=== PATIENT | female | born 1975 | race Caucasian/White ===

== ENCOUNTER 2019-08-06 17:01 | Emergency (ER) | payer SELFPAY ==
[2019-08-06 17:43] VITALS: BP 123/77; PULSE 92; RESP 16; TEMP 36.9; O2SAT 98; BMI 20.7
--- NOTE | 2019-08-06 17:53 | W.ED.GENADLT ---
HPI - General Adult General: Chief complaint: General Medical Stated complaint: sinus problems Time Seen by Provider: 08/06/19 17:53 History of Present Illness: HPI narrative: sinus tenderness x 3 days Associated symptoms: Deny chest pain, dyspnea, headache(s), nausea, rash or vomiting Review of Systems Const: Denies: fever, chills or body aches Eyes: Denies: change in vision or blurry vision ENMT: Reports: nasal congestion; Denies: throat pain Card: Denies: chest pain or shortness of breath on exertion Resp: Denies: shortness of breath, productive cough or non-productive cough GI: Denies: abdominal pain, nausea or vomiting Musc: Denies: extremity pain Skin/Breast: Denies: rash Neuro: Denies: headache Psych: Denies: anxiety or depression Maxime/Lymph: Denies: easy bruising PFSH ED PFSH: Statuses (acute, chronic, etc) shown below reflect problem list status as previously entered and may not be historically accurate Social History Smoking and tobacco status: current every day smoker Female Reproductive History: Date of last menstrual period: 07/31/10 Physical Exam Const: COMMON NORMALS: no apparent distress, average body habitus and oriented x3 HENMT: COMMON NORMALS: normocephalic HEAD & SCALP: normal to inspection and normocephalic FACE & SINUS: sinus tenderness; facial exam not normal and sinuses not nontender Eye: COMMON NORMALS: conjunctivae normal GENERAL EYE: normal appearance of both eyes CONJUNCTIVA: Yes conjunctivae normal Neck/C-Spine: COMMON NORMALS: no JVD Chest: COMMONS NORMALS: inspection of chest normal Resp: COMMON NORMALS: normal respiratory effort and clear to auscultation bilaterally AUSCULTATION: clear to auscultation bilaterally Cardio: COMMON NORMALS: no JVD, regular rate and regular rhythm RATE: regular rate RHYTHM: regular rhythm GI: COMMON NORMALS: normal to inspection, nondistended, normoactive bowel sounds Extremity: COMMON NORMALS: normal to inspection and full ROM Neuro: COMMON NORMALS: oriented x3 Course Vital Signs: Vital signs: Vital Signs Temperature 98.5 F 08/06/19 17:43 Pulse Rate 92 08/06/19 17:43 Respiratory Rate 16 08/06/19 17:43 Blood Pressure 123/77 08/06/19 17:43 Pulse Oximetry 98 08/06/19 17:43 Discharge Plan Discharge Patient Disposition: Home, Self-Care Clinical Impression: Sinus complaint Condition: Stable Prescriptions: New sulfamethoxazole-trimethoprim [Bactrim DS] 800-160 mg tablet 1 tab PO BID 21 Days Qty: 42 RF: 0 Referrals: Kin Lopez, JUNIOR LINUX ADMINISTRATOR [Primary Care Provider] - Discharge Diet: Usual diet Discharge Activity: Resume usual activity Patient Instructions: Sinusitis - Acute Activity Restrictions/Additional Instructions: take meds as prescribed, follow up with PCP as needed Coding Level of Care Code ED Organic Chemistry Teacher for Apryl Salas
[2019-08-06 18:05] VITALS: BP 119/70; PULSE 79; RESP 18; O2SAT 97
== END 2019-08-06 18:09 | disposition home or self-care (01) ==
LOC: ER 18:09
PROVIDERS: Emergency Provider Nurse Practitioner Family; Family Provider Nurse Practitioner Family; PCP Nurse Practitioner Family
DX: R09.81 Nasal congestion (principal); F17.210 Nicotine dependence, cigarettes, uncomplicated
CPT/HCPCS: 99281

== ENCOUNTER 2019-12-09 13:55 | Emergency (ER) | payer SELFPAY ==
[2019-12-09 14:07] VITALS: BP 156/98; PULSE 83; RESP 17; TEMP 36.6; O2SAT 99; BMI 20.2
--- NOTE | 2019-12-09 14:18 | XR_ITS ---
WS: [id number] PORTABLE CHEST HISTORY: cough/congestion COMPARISON: 06/05/2019 Lungs are clear and well expanded. No pleural effusion or pneumothorax. Cardiac size: Normal. Mediastinum/Aorta: Normal mediastinum. No osseous abnormality seen. XR/XR chest 1V portable [id number] IMPRESSION: Unremarkable portable chest.
[2019-12-09 15:16] LABS: Basophils # 0.1 10^3/uL (0.0-0.1); Basophils % 1.8 %; Eosinophils # 0.1 10^3/uL (0.0-0.8); Eosinophils % 4.3 %; Hematocrit 42.5 % (37.0-47.0); Hemoglobin 14.4 g/dL (11.5-15.3); Lymphocytes # 1.3 10^3/uL (0.8-4.8); Lymphocytes % 41.1 %; Mean Corpuscular HGB Conc 33.9 g/dL (30.0-36.0); Mean Corpuscular Volume 106.3 fL (81-99); Mean Platelet Volume 10.7 fL (7.4-10.4); Monocytes # 0.2 10^3/uL (0.2-0.9); Monocytes % 6.4 %; Neutrophils # 1.5 10^3/uL (1.8-7.7); Neutrophils % 46.1 %; Nucleated Red Blood Cells % 0 %; Platelet Count 132 10^3/cmm (130-400); Red Cell Distribution Width 12.7 % (12.1-15.1); White Blood Count 3.3 10^3/uL (4.0-10.0)
[2019-12-09 15:29] LABS: Alanine Aminotransferase 61 U/L (0-33); Albumin Level 4.1 g/dL (3.5-5.2); Alkaline Phosphatase 140 IU/L (35-105); Aspartate Amino Transferase 127 U/L (0-32); Blood Urea Nitrogen 5 mg/dL (6-20); Carbon Dioxide 23 mmol/L (22-29); Chloride 102 mmol/L (98-107); Globulin 3.4 g/dL (1.3-4.6); Glomerular Filtration Rate 67.7 mL/min (90-130); Glucose 91 mg/dL (65-115); Osmolality Calculated 285 mOsm/kg (285-295); Sodium 140 mmol/L (136-145); Total Bilirubin 0.9 mg/dL (0.15-1.2); Total Protein 7.5 g/dL (6.6-8.7)
--- NOTE | 2019-12-09 20:25 | ED_ITS ---
HPI - Fever General: Chief Complaint: Fever Stated Complaint: COUGH/DIZZY Time Seen by Provider: 12/09/19 20:23 History of Present Illness: HPI Narrative: Patient is a 44-year-old female who comes to the ED with generalized illness. Patient said that symptoms started about 2 weeks ago. She is complaining of productive cough with clear sputum, ear pain, nasal drainage and congestion, sinus pain/ headache and SOB. Patient says that she has had a lot of nasal congestion and drainage that goes down the back of her throat causing her to cough and gag and vomit. Patient says she is vomited multiple times over the last 2 weeks. She describes her shortness of breath has a chest heaviness. Patient's headache she describes as similar to her previous migraines. She has photophobia. Migraine is a 9 out of 10. Patient is also complaining of some neck muscle pain and tightness. She says she has had subjective fevers and chills. Denies any abdominal pain, constipation, diarrhea, dysuria, hematuria. Associated symptoms: Reports chills, headache(s), nasal congestion, sinus pain and vomiting; Deny abdominal pain, back/flank pain, chest pain, diarrhea, dysuria or nausea Review of Systems Const: Reports: fever and chills; Denies: fatigue Eyes: Denies: change in vision or eye discomfort ENMT: Reports: ear pain, ear discharge, nasal discharge, nasal congestion, post nasal drip and facial/sinus pain; Denies: throat pain or painful swallowing Card: Denies: chest pain, palpitations, edema, swelling of feet/ankles, shortness of breath on exertion or shortness of breath when lying down Resp: Reports: shortness of breath and productive cough; Denies: non-productive cough GI: Reports: vomiting; Denies: abdominal pain, nausea, diarrhea, constipation or blood in stool : Denies: flank pain, painful urination or blood in urine Musc: Reports: neck pain (Left side of neck muscle pain); Denies: back pain or extremity swelling Skin/Breast: Denies: rash or new lesion Neuro: Reports: headache; Denies: numbness in extremities or weakness in extremities PFS ED PFSH: Social History Smoking and tobacco status: current every day smoker Female Reproductive History: Date of last menstrual period: 07/31/10 Physical Exam Narrative: EXAM NARRATIVE: Patient is a 44-year-old female that is sitting on exam bed when I enter the room. Patient appears to be feeling unwell and voice sounds nasally and nose is congested. Const: COMMON NORMALS: oriented x3 HENMT: COMMON NORMALS: normocephalic, external ears normal, external nose normal and moist oral mucous membranes HEAD & SCALP: normocephalic FACE & SINUS: sinus tenderness frontal and maxillary NOSE: external nose normal and nasal discharge clear EXTERNAL EAR: Yes external ears normal EXTERNAL AUDITORY CANAL: EAC abnormal EAC laterality: right Details: other (erythema and redness with some blood. pt states she was picking at her right ear and picked scab out.) TYMPANIC MEMBRANE: TM abnormal TM laterality: right Details: bulging, erythematous and fluid behind TM and left Details: fluid behind TM MOUTH: oral and palatal mucosa normal THROAT: posterior oropharynx normal and uvula midline Eye: COMMON NORMALS: PERRL PUPIL: Yes PERRL Neck/C-Spine: COMMON NORMALS: supple GENERAL: Yes normal visual inspection CERVICAL SPINE: Yes trapezius muscle tenderness left (tender and tight) Resp: COMMON NORMALS: normal respiratory effort, no retractions and no use of accessory muscles EFFORT & INSPECTION: Yes able to speak in complete sentences and No respiratory distress AUSCULTATION: no crackles and wheezes expiratory wheezes, lower bilaterally and posterior Cardio: COMMON NORMALS: regular rate, regular rhythm, S1 normal heart sound, S2 normal heart sound, no gallops, no clicks, no murmurs and peripheral pulses 2+ throughout RATE: regular rate RHYTHM: regular rhythm HEART SOUNDS: S 1 normal and S2 normal PERIPHERAL PULSES: pulses 2+ throughout GI: COMMON NORMALS: normal to inspection, nondistended, normoactive bowel sounds, soft to palpation, non-tender and no masses PALPATION: Yes soft : COMMON NORMALS: Yes no CVA tenderness BLADDER/KIDNEY EXAM: Yes no CVA tenderness Back/Pelvis: COMMON NORMALS: no CVA tenderness Extremity: COMMON NORMALS: normal to inspection and no pedal edema Neuro: COMMON NORMALS: oriented x3 and moves all extremities Skin: COMMON NORMALS: no rashes or lesions noted GENERAL SKIN EXAM: no rashes or lesions noted and dry skin Course Reevaluation(s): Reevaluation #1: I discussed with patient lab findings and and particularly her elevated liver enzymes. Patient denies any right upper quadrant pain or epigastric pain, recent alcohol consumption, Tylenol consumption or any other known liver issues. Denies any IV drug use and denies any known contact with person who has hepatitis. Time: 21:51 Vital Signs: Vital signs: Vital Signs Temperature 97.9 F 12/09/19 14:07 Pulse Rate 83 12/09/19 14:07 Respiratory Rate 17 12/09/19 14:07 Blood Pressure 150/99 12/10/19 03:10 Pulse Oximetry 96 12/10/19 03:10 MDM - Fever MDM Narrative: Medical decision making narrative: Patient is a 44-year-old female who comes to the ED with migraines, neck muscle pain, nasal congestion, postnasal drip, productive cough, sinus pain and right ear pain. She also describes some chest pain. Physical exam showed some erythema, bulging and fluid behind right TM. Patient had moderate tenderness upon palpation of the maxillary and frontal sinuses. EKG showed normal sinus rhythm and troponin was negative, ruling out any cardiac cause. Chest x-ray showed no acute findings. CBC was unremarkable and CMP showed an elevated ALT of 61 and AST of 127. Hep [place] panel was performed and they were all nonreactive. Patient was given dose of antibiotic while here in the ED. She was also given IV fluids, Toradol, sumatriptan, Decadron, Benadryl for migraine. For patient's neck pain she was given a dose of Flexeril. Patient diagnosed with sinus infection, trapezius muscle pain, otitis media of right ear and a migraine. Patient was sent home with a prescription for Augmentin and course of steroids. I also sent patient home with muscle relaxer to help with neck muscle pain. Patient told to follow- up with PCP in the next 7 days for reevaluation. Patient understood and agreed with plan. Lab Data: Attestation: I reviewed the patient's lab results. Labs: Lab Results 12/09/19 12/09/19 12/09/19 Range/Units 15:03 15:03 15:03 WBC 3.3 L (4.0-10.0) 10^3/ uL RBC 4.00 L (4.1-5.3) 10^6/u L Hgb 14.4 (11.5-15.3) g/dL Hct 42.5 (37.0-47.0) % MCV 106.3 H (81-99) fL MCH 36.0 H (28.0-34.0) pg MCHC 33.9 (30.0-36.0) g/dL RDW 12.7 (12.1-15.1) % Plt Count 132 (130-400) 10^3/c mm MPV 10.7 H (7.4-10.4) fL Neut % (Auto) 46.1 % Lymph % (Auto) 41.1 % Mcdonough % (Auto) 6.4 % Eos % (Auto) 4.3 % Baso % (Auto) 1.8 % Neut # (Auto) 1.5 L (1.8-7.7) 10^3/u L Lymph # (Auto) 1.3 (0.8-4.8) 10^3/u L Mcdonough # (Auto) 0.2 (0.2-0.9) 10^3/u L Eos # (Auto) 0.1 (0.0-0.8) 10^3/u L Baso # (Auto) 0.1 (0.0-0.1) 10^3/u L Nucleated RBC % (a uto) 0 % Nucleated RBCs # 0.0 /100WBC Sodium 140 (136-145) mmol/L Potassium 4.0 (3.5-5.1) mmol/L Chloride 102 (98-107) mmol/L Carbon Dioxide 23 (22-29) mmol/L Anion Gap 19.0 (5-19) BUN 5 L (6-20) mg/dL Creatinine 0.9 (0.5-0.9) mg/dL GFR Calculation 67.7 L (90-130) mL/min Glucose 91 (65-115) mg/dL Calculated Osmolal ity 285 (285-295) mOsm/k g Calcium 10.0 (8.5-10.5) mg/dL Total Bilirubin 0.9 (0.15-1.2) mg/dL AST 127 H (0-32) U/L ALT 61 H (0-33) U/L Alkaline Phosphata se 140 H (35-105) IU/L Troponin T Baselin e (0-10) ng/mL Total Protein 7.5 (6.6-8.7) g/dL Albumin 4.1 (3.5-5.2) g/dL Globulin 3.4 (1.3-4.6) g/dL Hepatitis A IgM Ab Non-reactive (Nonreactive) Hep Bs Antigen Non-reactive (Nonreactive) Hep Bs Antibody 3.5 (0-8.5) Hep B Core Total A b Non-reactive (Nonreactive) Hepatitis C Antibo dy Non-reactive (Nonreactive) Influenza Type A A g (Negative) Influenza Type B A g (Negative) 12/09/19 12/09/19 Range/Units 20:48 21:20 WBC (4.0-10.0) 10^3/ uL RBC (4.1-5.3) 10^6/u L Hgb (11.5-15.3) g/dL Hct (37.0-47.0) % MCV (81-99) fL MCH (28.0-34.0) pg MCHC (30.0-36.0) g/dL RDW (12.1-15.1) % Plt Count (130-400) 10^3/c mm MPV (7.4-10.4) fL Neut % (Auto) % Lymph % (Auto) % Mcdonough % (Auto) % Eos % (Auto) % Baso % (Auto) % Neut # (Auto) (1.8-7.7) 10^3/u L Lymph # (Auto) (0.8-4.8) 10^3/u L Mcdonough # (Auto) (0.2-0.9) 10^3/u L Eos # (Auto) (0.0-0.8) 10^3/u L Baso # (Auto) (0.0-0.1) 10^3/u L Nucleated RBC % (a uto) % Nucleated RBCs # /100WBC Sodium (136-145) mmol/L Potassium (3.5-5.1) mmol/L Chloride (98-107) mmol/L Carbon Dioxide (22-29) mmol/L Anion Gap (5-19) BUN (6-20) mg/dL Creatinine (0.5-0.9) mg/dL GFR Calculation (90-130) mL/min Glucose (65-115) mg/dL Calculated Osmolal ity (285-295) mOsm/k g Calcium (8.5-10.5) mg/dL Total Bilirubin (0.15-1.2) mg/dL AST (0-32) U/L ALT (0-33) U/L Alkaline Phosphata se (35-105) IU/L Troponin T Baselin e 7 (0-10) ng/mL Total Protein (6.6-8.7) g/dL Albumin (3.5-5.2) g/dL Globulin (1.3-4.6) g/dL Hepatitis A IgM Ab (Nonreactive) Hep Bs Antigen (Nonreactive) Hep Bs Antibody (0-8.5) Hep B Core Total A b (Nonreactive) Hepatitis C Antibo dy (Nonreactive) Influenza Type A A g Negative (Negative) Influenza Type B A g Negative (Negative) Imaging Data^: CXR: Attestation: I personally reviewed and interpreted this imaging study as foll ows: Radiologist's impression: [address] [address] XRay Report Signed Patient: Denisa Orourke Unit #: [id number] : 1975 Age/Sex: 44 / F ADM Date: 12/09/19 Loc: ER Room/Bed: Attending Dr: Ordering Provider/Ordering MD: Missy Shah Date of Service: 12/09/19 Procedure(s): XR chest 1V portable [id number] Accession Number(s): [id number] Report Number: [id number] WS: [id number] PORTABLE CHEST HISTORY: cough/congestion COMPARISON: 06/05/2019 Lungs are clear and well expanded. No pleural effusion or pneumothorax. Cardiac size: Normal. Mediastinum/Aorta: Normal mediastinum. No osseous abnormality seen. XR/XR chest 1V portable [id number] IMPRESSION: Unremarkable portable chest. Dictated By: Kristin Molina DO Signed By: Kristin Molina DO Signed Date/Time: 12/09/191458 DD/ 58 EKG Data^: EKG 1: Attestation: I personally reviewed and interpreted this EKG as follows: EKG interpretation date: 12/09/19 Interpretation: Sinus rhythm, 60 bpm, P waves present, no ST segment elevation or depression seen. Prolonged QT interval Discharge Plan Discharge Patient Disposition: Home, Self-Care Clinical Impression: Sinus pain Acute infection of nasal sinus Qualifiers: Sinusitis location: maxillary Recurrence: non-recurrent Qualified Code(s): J01.00 - Acute maxillary sinusitis, unspecified Migraine Qualifiers: Migraine type: without aura Status migrainosus presence: without status migrainosus Intractability: not intractable Qualified Code(s): G43.009 - Migraine without aura, not intractable, without status migrainosus Acute otitis media Qualifiers: Otitis media type: serous Laterality: right Recurrence: non-recurrent Qualified Code(s): H65.01 - Acute serous otitis media, right ear Strain of left trapezius muscle Qualifiers: Encounter type: initial encounter Qualified Code(s): S46.812A - Strain of other muscles, fascia and tendons at shoulder and upper arm level, left arm, initial encounter Condition: Stable Prescriptions: New Augmentin 875-125 mg tablet 1 tab PO BID 7 Days Qty: 14 RF: 0 prednisone 50 mg tablet 50 mg PO DAILY 4 Days Qty: 4 RF: 0 cyclobenzaprine 5 mg tablet 5 mg PO Q8H Qty: 20 RF: 0 Discharge Orders: Discharge Order (Routine); Ordered 12/10/19 Ordered By: Yoshi Pope Referrals: ASH Lopez, BRAKE PRESS OPERATOR [Primary Care Provider] - Discharge Diet: Regular Discharge Activity: Increase activity as tolerated Patient Instructions: Migraine Headache (ED), Sinusitis - Acute Activity Restrictions/Additional Instructions: Follow-up with your PCP in the next 7 to 10 days for reevaluation. Take full course of antibiotics and steroids as prescribed. Take [id number] Tylenol or ibuprofen for pain or fevers. Drink plenty of fluids and stay hydrated. Take muscle relaxer at night to help with neck pain. Muscle relaxer can cause drowsiness so use with caution during the day. Discharge Date/Time: 12/10/19 03:34 Coding Level of Care Code ED Boat Tester for Chg Fwd 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
[2019-12-09 21:15] LABS: Troponin(5th) Baseline 7 ng/mL (0-10)
[2019-12-09] MEDS: sodium chloride 0.9% 1,000 ML 999 ML IV ×2 (22:10→23:44)
[2019-12-09] MEDS: ketorolac 30 mg/mL INJ IVP (22:11)
[2019-12-09] MEDS: ondansetron 2 mg/ML SDV 2 mL 4 MG IVP (22:29)
[2019-12-09] MEDS: amoxicillin 500 mg Capsule PO (22:29)
--- NOTE | 2019-12-09 22:41 | ECG_ITS ---
Measurements Intervals [place] Rate: 60 P: 58 OH: 169 QRS: 21 QRSD: 94 T: 72 QT: 494 QTc: 497 SINUS RHYTHM POSSIBLE RIGHT VENTRICULAR CONDUCTION DELAY [RSR (QR) IN V1/V2] PROLONGED QT INTERVAL Compared to ECG 10/16/2017 18:06:14 Prolonged QT interval now present Electronically Signed On 12-10-2019 19:47:10 CDT by Masha Pablo M.D. [email or web address]
--- NOTE | 2019-12-09 22:53 | PC.NURSE ---
pt. refused [id number] blood draw, Dr dykes
[2019-12-09 23:06] LABS: Influenza A by IFA Negative (Negative); Influenza B by IFA Negative (Negative)
[2019-12-09] MEDS: morphine 4 mg/mL SDV 1 mL IVP (23:45)
[2019-12-09] MEDS: dexamethasone 10 mg/mL INJ IVP (23:45)
[2019-12-09 23:52] VITALS: BP 150/102; O2SAT 97
[2019-12-09 23:55] VITALS: BP 150/102; O2SAT 95
[2019-12-10] VITALS (39 sets, daily range): BP systolic 139–174; BP diastolic 99–109; O2SAT 92–100
[2019-12-10] MEDS: diphenhydrAMINE 50 mg/mL SDV 1mL 25 MG IVP (00:35)
[2019-12-10] MEDS: SUMAtriptan 6 mg/0.5 mL SDV SUBCUT (00:36)
[2019-12-10] MEDS: cyclobenzaprine 10 mg Tablet 5 MG PO (02:16)
[2019-12-10 03:07] LABS: Hepatitis A Antibody IgM Non-Reactive (Nonreactive); Hepatitis B Core AB, Total Non-Reactive (Nonreactive); Hepatitis B Surface AB 3.5 (0-8.5); Hepatitis B Surface Antigen Non-Reactive (Nonreactive); Hepatitis C Virus Antibody Non-Reactive (Nonreactive)
== END 2019-12-10 03:34 | disposition home or self-care (01) ==
PROVIDERS: Physician Assistant; Emergency Provider Physician Assistant; PCP Nurse Practitioner Family
DX: J01.00 Acute maxillary sinusitis, unspecified (principal); G43.009 Migraine without aura, not intractable, without status migrainosus; H65.01 Acute serous otitis media, right ear; S46.812A Strain of other muscles, fascia and tendons at shoulder and upper arm level, left arm, initial encounter; X58.XXXA Exposure to other specified factors, initial encounter; F17.210 Nicotine dependence, cigarettes, uncomplicated
CPT/HCPCS: 12345; 71045; 80053; 84484; 85025; 86705; 86706; 86709; 86803; 87340; 87804; 93005; 96361; 96372; 96374; 96375; 99284; J1100; J1200; J1885; J2270; J2405; J3030; J7030

== ENCOUNTER 2019-12-14 12:26 | Emergency (ER) | payer SELFPAY ==
[2019-12-14 12:43] VITALS: BP 134/94; PULSE 95; RESP 18; O2SAT 100; BMI 20.5
--- NOTE | 2019-12-14 12:44 | XRR_ITS ---
PROCEDURE INFORMATION: Exam: XR Chest, 1 View Exam date and time: 12/14/2019 12:45 PM Age: 44 years old Clinical indication: Chest pain; Additional info: Dyspnea/cough TECHNIQUE: Imaging protocol: XR of the chest Views: 1 view. COMPARISON: CR XR chest 1V portable [id number] 12/09/2019 2:33 PM FINDINGS: Lungs: Unremarkable. No consolidation. Pleural space: Unremarkable. No pleural effusion. No pneumothorax. Heart/Mediastinum: Unremarkable. No cardiomegaly. Bones/joints: Unremarkable. XR/XR chest 1V portable [id number] IMPRESSION: No acute findings.
--- NOTE | 2019-12-14 12:45 | ED_ITS ---
HPI - General Adult General: Chief complaint: Chest Pain Stated complaint: cp Time Seen by Provider: 12/14/19 12:36 History of Present Illness: HPI narrative: 44-year-old female comes in complaining of chest pain left arm numbness that started last night around 11 PM. She was resting at the time she not needs anything that makes it better or worse. She did use a family members nitro spray which did not really seem to make any difference she reports. She does have some associated shortness of breath with it she is quite anxious and tearful when seen in the emergency room today. She denies fever cough denies any vomiting or diarrhea. She is moderately nauseous. Earlier this week she was seen for a sinus infection since started on Augmentin and prednisone. She is still taking those. She has a history of PSVT but is been a number of years since she has had any episodes. Onset (ago): hour(s) (12-14) Location: chest Radiation: non-radiation Severity: moderate Quality: sharp and constant Pain Consistency: constant Relieving factors: none Exacerbating factors: none Associated symptoms: Reports dyspnea and short of breath; Deny confusion, cough, diaphoresis, decreased appetite, fevers/chills, headache(s), nausea, rash, palpitations, seizures, syncope, vomiting or weakness Treatments prior to arrival: other (Nitroglycerin no relief) Review of Systems Const: Denies: diaphoresis ENMT: Denies: throat pain, ear or mastoid pain, nasal discharge or nasal congestion Card: Denies: palpitations or syncope Resp: Reports: dyspnea GI: Denies: nausea or vomiting : Denies: flank pain, difficulty voiding, dysuria, urinary frequency or urinary urgency Skin/Breast: Denies: rash or pruritus Neuro: Denies: headache(s) or confusion PFS ED PFSH: Medical History (Updated 12/18/19 @ 00:00 by ) PSVT (paroxysmal supraventricular tachycardia) Surgical History (Updated 12/14/19 @ 12:50 by Fer Reynoso DO) History of hysterectomy with bilateral oophorectomy Hx of appendectomy Social History (Updated 12/14/19 @ 12:51 by Fer Reynoso DO) Smoking and tobacco status: current every day smoker Alcohol intake: current Female Reproductive History: Date of last menstrual period: 07/31/10 Physical Exam Narrative: EXAM NARRATIVE: 44-year-old female tearful smells strongly of alcohol Const: COMMON NORMALS: no acute distress GENERAL APPEARANCE: cooperative and comfortable ORIENTATION/CONSCIOUSNESS: Yes awake, Yes oriented to person, Yes oriented to place and Yes oriented to time HENMT: COMMON NORMALS: normocephalic, atraumatic, hearing grossly normal bilaterally, external ears normal, EAC's normal, TM's normal bilaterally, Normal nasal mucous membranes and turbinates present, moist oral mucous membranes and oropharynx normal HEAD & SCALP: normocephalic and atraumatic NOSE: Normal nasal mucous membranes and turbinates present EXTERNAL EAR: Yes external ears normal EXTERNAL AUDITORY CANAL: EAC's normal TYMPANIC MEMBRANE: TM's normal bilaterally Eye: COMMON NORMALS: Equal, round and reactive pupils present, EOMs intact bilaterally, conjunctivae normal and no scleral icterus CONJUNCTIVA: Yes conjunctivae normal PUPIL: Yes Equal, round and reactive pupils present Neck/C-Spine: COMMON NORMALS: full ROM, no lymphadenopathy, supple and no JVD Lymph: LYMPHATIC: no lymphadenopathy noted and no lymphedema noted Resp: COMMON NORMALS: normal respiratory effort, No retractions, No use of accessory muscles and clear to auscultation bilaterally AUSCULTATION: clear to auscultation bilaterally Cardio: COMMON NORMALS: no JVD, regular rate, regular rhythm and No murmurs pr esent (Cardio) RATE: regular rate RHYTHM: regular rhythm GI: COMMON NORMALS: Soft to palpation and No hepatosplenomegaly present AUSCULTATION: Yes normoactive bowel sounds PALPATION: Yes Soft to palpation, No Tenderness to palpation present (GI), No Guarding due to palpation present (GI) and Yes No hepatosplenomegaly present Extremity: COMMON NORMALS: normal to inspection, capillary refill normal, no clubbing, cyanosis or edema, no calf tenderness and no pedal edema Neuro: SENSORIUM/ORIENTATION: Yes oriented to person, Yes oriented to place and Yes oriented to time Skin: COMMON NORMALS: no rashes or lesions noted GENERAL SKIN EXAM: no rashes or lesions noted Course Vital Signs: Vital signs: Vital Signs Pulse Rate 95 12/14/19 12:43 Respiratory Rate 18 12/14/19 12:43 Blood Pressure 134/94 12/14/19 12:43 Pulse Oximetry 100 12/14/19 12:43 MDM - General Adult MDM Narrative: Medical decision making narrative: Patient acutely intoxicated troponins unremarkable with no delta. We will go ahead and discharge her home start on a PPI strongly encouraged to stop drinking. Lab Data: Attestation: I reviewed the patient's lab results. Labs: Lab Results 12/14/19 12/14/19 12/14/19 Range/Units 13:09 13:09 13:11 WBC (4.0-10.0) 10^3/ uL RBC (4.1-5.3) 10^6/u L Hgb (11.5-15.3) g/dL Hct (37.0-47.0) % MCV (81-99) fL MCH (28.0-34.0) pg MCHC (30.0-36.0) g/dL RDW (12.1-15.1) % Plt Count (130-400) 10^3/c mm MPV (7.4-10.4) fL Neut % (Auto) % Lymph % (Auto) % [place] % (Auto) % Eos % (Auto) % Baso % (Auto) % Neut # (Auto) (1.8-7.7) 10^3/u L Lymph # (Auto) (0.8-4.8) 10^3/u L [place] # (Auto) (0.2-0.9) 10^3/u L Eos # (Auto) (0.0-0.8) 10^3/u L Baso # (Auto) (0.0-0.1) 10^3/u L Nucleated RBC % (a uto) % Nucleated RBCs # /100WBC Specimen Type Arterial Sample Site Brachial, left ABG pH 7.44 (7.35-7.45) ABG pCO2 34.9 L (35-45) mmHg ABG pO2 94.0 (80.0-100.0) mmH g ABG HCO3 23.7 (22-26) mmol/L ABG O2 Saturation 98.0 ABG Base Excess 0.0 (-2.0-2.0) mmol/ L Donny Test Pos A-a O2 Gradient 10.5 H (5-10) mmHg Hematocrit 42.8 (37-47) % Hgb O2 Saturation 92.5 L (95-100) % Carboxyhemoglobin 4.8 (0.4-20.1) %THgb Methemoglobin 0.8 (0.4-1.5) % Total Hemoglobin 14.0 (12-16) g/dL Sodium 144.0 H (131-143) mmol/L Potassium 3.0 L (3.5-5.0) mmol/L Glucose 91.0 (70-115) mg/dL Ionized Calcium 1.2 (1.1-1.4) mmol/L O2 Delivery Device Room air Broommaker ID [id number] Chloride (98-107) mmol/L Carbon Dioxide (22-29) mmol/L Anion Gap (5-19) BUN (6-20) mg/dL Creatinine (0.5-0.9) mg/dL GFR Calculation (90-130) mL/min Calculated Osmolal ity (285-295) mOsm/k g Calcium (8.5-10.5) mg/dL Total Bilirubin (0.15-1.2) mg/dL AST (0-32) U/L ALT (0-33) U/L Alkaline Phosphata se (35-105) IU/L Troponin T Baselin e (0-10) ng/mL Troponin T 120 Min [place] (0-10) ng/mL Delta Troponin T (0-10) ABS# Total Protein (6.6-8.7) g/dL Albumin (3.5-5.2) g/dL Globulin (1.3-4.6) g/dL Urine Color Yellow (Yellow) Urine Appearance Clear (CLEAR) Urine pH 6.5 (5-7) Ur Specific Gravit y 1.005 (1.005-1.030) Urine Protein Neg (Negative) Urine Glucose (UA) Norm (Normal) Urine Ketones Negative (Negative) Urine Blood Neg (Negative) Urine Nitrate Negative (Negative) Urine Bilirubin Neg (NEGATIVE) Urine Urobilinogen Norm (Negative) mg/dL Ur Leukocyte Rachel ase Negative (Negative) Urine Opiates Scre en Negative (Negative) ng/mL Ur Barbiturates Sc reen Negative (Negative) ng/mL Ur Phencyclidine S crn Negative (Negative) ng/mL Ur Amphetamines Sc reen Negative (Negative) ng/mL U Benzodiazepines Scrn Positive H (Negative) ng/mL Urine Cocaine Scre en Negative (Negative) ng/mL U Marijuana (THC) Screen Negative (Negative) ng/mL Ethyl Alcohol (0-10) mg/dL 12/14/19 12/14/19 12/14/19 Range/Units 13:22 13:22 13:22 WBC 9.3 (4.0-10.0) 10^3/ uL RBC 3.74 L (4.1-5.3) 10^6/u L Hgb 14.0 (11.5-15.3) g/dL Hct 40.5 (37.0-47.0) % MCV 108.3 H (81-99) fL MCH 37.4 H (28.0-34.0) pg MCHC 34.6 (30.0-36.0) g/dL RDW 12.9 (12.1-15.1) % Plt Count 156 (130-400) 10^3/c mm MPV 11.0 H (7.4-10.4) fL Neut % (Auto) 44.5 % Lymph % (Auto) 47.0 % [place] % (Auto) 7.7 % Eos % (Auto) 0.4 % Baso % (Auto) 0.1 % Neut # (Auto) 4.1 (1.8-7.7) 10^3/u L Lymph # (Auto) 4.4 (0.8-4.8) 10^3/u L [place] # (Auto) 0.7 (0.2-0.9) 10^3/u L Eos # (Auto) 0.0 (0.0-0.8) 10^3/u L Baso # (Auto) 0.0 (0.0-0.1) 10^3/u L Nucleated RBC % (a uto) 0 % Nucleated RBCs # 0.0 /100WBC Specimen Type Sample Site ABG pH (7.35-7.45) ABG pCO2 (35-45) mmHg ABG pO2 (80.0-100.0) mmH g ABG HCO3 (22-26) mmol/L ABG O2 Saturation ABG Base Excess (-2.0-2.0) mmol/ L Donny Test A-a O2 Gradient (5-10) mmHg Hematocrit (37-47) % Hgb O2 Saturation (95-100) % Carboxyhemoglobin (0.4-20.1) %THgb Methemoglobin (0.4-1.5) % Total Hemoglobin (12-16) g/dL Sodium 141 (131-143) mmol/L Potassium 3.0 L (3.5-5.0) mmol/L Glucose 86 (70-115) mg/dL Ionized Calcium (1.1-1.4) mmol/L O2 Delivery Device Broommaker ID Chloride 102 (98-107) mmol/L Carbon Dioxide 24 (22-29) mmol/L Anion Gap 18.0 (5-19) BUN 8 (6-20) mg/dL Creatinine 0.9 (0.5-0.9) mg/dL GFR Calculation 67.7 L (90-130) mL/min Calculated Osmolal ity 287 (285-295) mOsm/k g Calcium 8.6 (8.5-10.5) mg/dL Total Bilirubin 0.3 (0.15-1.2) mg/dL AST 92 H (0-32) U/L ALT 53 H (0-33) U/L Alkaline Phosphata se 107 H (35-105) IU/L Troponin T Baselin e 6 (0-10) ng/mL Troponin T 120 Min [place] (0-10) ng/mL Delta Troponin T (0-10) ABS# Total Protein 6.7 (6.6-8.7) g/dL Albumin 4.2 (3.5-5.2) g/dL Globulin 2.5 (1.3-4.6) g/dL Urine Color (Yellow) Urine Appearance (CLEAR) Urine pH (5-7) Ur Specific Gravit y (1.005-1.030) Urine Protein (Negative) Urine Glucose (UA) (Normal) Urine Ketones (Negative) Urine Blood (Negative) Urine Nitrate (Negative) Urine Bilirubin (NEGATIVE) Urine Urobilinogen (Negative) mg/dL Ur Leukocyte Rachel ase (Negative) Urine Opiates Scre en (Negative) ng/mL Ur Barbiturates Sc reen (Negative) ng/mL Ur Phencyclidine S crn (Negative) ng/mL Ur Amphetamines Sc reen (Negative) ng/mL U Benzodiazepines Scrn (Negative) ng/mL Urine Cocaine Scre en (Negative) ng/mL U Marijuana (THC) Screen (Negative) ng/mL Ethyl Alcohol 255 H (0-10) mg/dL 16/20 Range/Units 15:25 WBC (4.0-10.0) 10^3/ uL RBC (4.1-5.3) 10^6/u L Hgb (11.5-15.3) g/dL Hct (37.0-47.0) % MCV (81-99) fL MCH (28.0-34.0) pg MCHC (30.0-36.0) g/dL RDW (12.1-15.1) % Plt Count (130-400) 10^3/c mm MPV (7.4-10.4) fL Neut % (Auto) % Lymph % (Auto) % [place] % (Auto) % Eos % (Auto) % Baso % (Auto) % Neut # (Auto) (1.8-7.7) 10^3/u L Lymph # (Auto) (0.8-4.8) 10^3/u L [place] # (Auto) (0.2-0.9) 10^3/u L Eos # (Auto) (0.0-0.8) 10^3/u L Baso # (Auto) (0.0-0.1) 10^3/u L Nucleated RBC % (a uto) % Nucleated RBCs # /100WBC Specimen Type Sample Site ABG pH (7.35-7.45) ABG pCO2 (35-45) mmHg ABG pO2 (80.0-100.0) mmH g ABG HCO3 (22-26) mmol/L ABG O2 Saturation ABG Base Excess (-2.0-2.0) mmol/ L Donny Test A-a O2 Gradient (5-10) mmHg Hematocrit (37-47) % Hgb O2 Saturation (95-100) % Carboxyhemoglobin (0.4-20.1) %THgb Methemoglobin (0.4-1.5) % Total Hemoglobin (12-16) g/dL Sodium (131-143) mmol/L Potassium (3.5-5.0) mmol/L Glucose (70-115) mg/dL Ionized Calcium (1.1-1.4) mmol/L O2 Delivery Device Broommaker ID Chloride (98-107) mmol/L Carbon Dioxide (22-29) mmol/L Anion Gap (5-19) BUN (6-20) mg/dL Creatinine (0.5-0.9) mg/dL GFR Calculation (90-130) mL/min Calculated Osmolal ity (285-295) mOsm/k g Calcium (8.5-10.5) mg/dL Total Bilirubin (0.15-1.2) mg/dL AST (0-32) U/L ALT (0-33) U/L Alkaline Phosphata se (35-105) IU/L Troponin T Baselin e (0-10) ng/mL Troponin T 120 Min [place] 6.00 (0-10) ng/mL Delta Troponin T 0 (0-10) ABS# Total Protein (6.6-8.7) g/dL Albumin (3.5-5.2) g/dL Globulin (1.3-4.6) g/dL Urine Color (Yellow) Urine Appearance (CLEAR) Urine pH (5-7) Ur Specific Gravit y (1.005-1.030) Urine Protein (Negative) Urine Glucose (UA) (Normal) Urine Ketones (Negative) Urine Blood (Negative) Urine Nitrate (Negative) Urine Bilirubin (NEGATIVE) Urine Urobilinogen (Negative) mg/dL Ur Leukocyte Rachel ase (Negative) Urine Opiates Scre en (Negative) ng/mL Ur Barbiturates Sc reen (Negative) ng/mL Ur Phencyclidine S crn (Negative) ng/mL Ur Amphetamines Sc reen (Negative) ng/mL U Benzodiazepines Scrn (Negative) ng/mL Urine Cocaine Scre en (Negative) ng/mL U Marijuana (THC) Screen (Negative) ng/mL Ethyl Alcohol (0-10) mg/dL Discharge Plan Discharge Patient Disposition: Home, Self-Care Clinical Impression: Acute alcoholic gastritis Condition: Stable Prescriptions: Changed Protonix 20 mg Tablet,Delayed Release (Dr/Ec) 40 mg PO DAILY Qty: 0 RF: 0 No Action cyclobenzaprine 5 mg tablet 5 mg PO Q8H Qty: 20 RF: 0 prednisone 50 mg Tablet 50 mg PO DAILY RF: 0 Discharge Orders: Discharge Order (Routine); Ordered 12/14/19 Ordered By: Fer Reynoso Referrals: ASH Lopez, MARKETING ACCOUNT MANAGER [Primary Care Provider] - Discharge Diet: Clear Liquid Discharge Activity: Increase activity as tolerated Patient Instructions: Alcoholism, Gastritis (ED), Alcohol Intoxication (ED), Abuse of Alcohol (ED) Activity Restrictions/Additional Instructions: Avoid any alcohol use Discharge Date/Time: 12/14/19 16:28 Coding Level of Care Code ED Storage Brine Worker for Apryl Fwd 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
--- NOTE | 2019-12-14 12:51 | ECG_ITS ---
Measurements Intervals [place] Rate: 90 P: 63 DE: 151 QRS: 34 QRSD: 113 T: 70 QT: 362 QTc: 444 SINUS RHYTHM INCOMPLETE RIGHT BUNDLE BRANCH BLOCK MINIMAL ST DEPRESSION [0.025+ mV ST DEPRESSION] Compared to ECG 12/09/2019 22:45:29 Incomplete right bundle-branch block now present ST (T wave) deviation now present Prolonged QT interval no longer present Electronically Signed On 12-14-2019 16:18:32 CDT by Trisha Obrien M.D. [email or web address]
[2019-12-14 13:25] LABS: ABG PCO2 34.9 mmHg (35-45); ABG PH Result 7.44 (7.35-7.45); Alveolar-Arterial Oxygen Gradi 10.5 mmHg (5-10); Arterial Blood Gas Hematocrit 42.8 % (37-47); Blood Gas Allen Test Pos; Blood Gas Sample Site Brachial, left; Blood Gas Sample Type Arterial; Carboxyhemoglobin 4.8 %THgb (0.4-20.1); HCO3 ABG 23.7 mmol/L (22-26); HGB O2 Sat 92.5 % (95-100); Ionized Calcium Level - ABG 1.2 mmol/L (1.1-1.4); Methemoglobin 0.8 % (0.4-1.5); Oxygen Device ROOM AIR
[2019-12-14 13:46] LABS: Basophils % 0.1 %; Eosinophils % 0.4 %; Hematocrit 40.5 % (37.0-47.0); Lymphocytes # 4.4 10^3/uL (0.8-4.8); Mean Corpuscular HGB Conc 34.6 g/dL (30.0-36.0); Mean Corpuscular Hemoglobin 37.4 pg (28.0-34.0); Mean Corpuscular Volume 108.3 fL (81-99); Monocytes # 0.7 10^3/uL (0.2-0.9); Monocytes % 7.7 %; Neutrophils # 4.1 10^3/uL (1.8-7.7); Neutrophils % 44.5 %; Nucleated Red Blood Cells % 0 %; Platelet Count 156 10^3/cmm (130-400); Red Blood Count 3.74 10^6/uL (4.1-5.3); Red Cell Distribution Width 12.9 % (12.1-15.1); White Blood Count 9.3 10^3/uL (4.0-10.0)
[2019-12-14 13:51] LABS: Add Urine Microscopic? NO
[2019-12-14 13:57] LABS: Urine Appearance Clear (CLEAR); Urine Color Yellow (Yellow)
[2019-12-14 13:58] LABS: Bilirubin Urine Neg (NEGATIVE); Blood Urine Neg (Negative); Glucose Urine UA Norm (Normal); Ketones Urine Negative (Negative); Leukocyte Esterase Urine Negative (Negative); Nitrate Urine Negative (Negative); Protein Urine Neg (Negative); Specific Gravity, Urine 1.005 (1.005-1.030); Urobilinogen Urine Norm (Negative); pH Urine 6.5 (5-7)
[2019-12-14 14:06] LABS: Amphetamines Screen Urine Negative (Negative); Barbiturates Screen Urine Negative (Negative); Benzodiazepines Screen Urine Positive (Negative); Cocaine Screen Urine Negative (Negative); Opiate Screen Urine Negative (Negative); PCP Screen Urine Negative (Negative); THC Screen Urine Negative (Negative)
[2019-12-14 14:07] LABS: Alanine Aminotransferase 53 U/L (0-33); Albumin Level 4.2 g/dL (3.5-5.2); Alcohol Level 255 mg/dL (0-10); Alkaline Phosphatase 107 IU/L (35-105); Aspartate Amino Transferase 92 U/L (0-32); Blood Urea Nitrogen 8 mg/dL (6-20); Calcium 8.6 mg/dL (8.5-10.5); Carbon Dioxide 24 mmol/L (22-29); Chloride 102 mmol/L (98-107); Globulin 2.5 g/dL (1.3-4.6); Glomerular Filtration Rate 67.7 mL/min (90-130); Glucose 86 mg/dL (65-115); Osmolality Calculated 287 mOsm/kg (285-295); Sodium 141 mmol/L (136-145); Total Bilirubin 0.3 mg/dL (0.15-1.2); Total Protein 6.7 g/dL (6.6-8.7)
[2019-12-14 14:11] LABS: Troponin(5th) Baseline 6 ng/mL (0-10)
[2019-12-14] MEDS: lidocaine 2% viscous 15 ML, aluminum-mag hydrox-simethicon 30 ML, sucralfate oral liq 1 GM PO (14:25)
[2019-12-14] MEDS: ketorolac 30 mg/mL INJ IVP (14:28)
[2019-12-14 15:49] LABS: Troponin 5 2HR Delta 0 ABS# (0-10)
== END 2019-12-14 16:28 | disposition home or self-care (01) ==
PROVIDERS: Emergency Provider Family Medicine; PCP Nurse Practitioner Family
DX: K29.20 Alcoholic gastritis without bleeding (principal); F17.210 Nicotine dependence, cigarettes, uncomplicated
CPT/HCPCS: 12345; 36415; 36600; 71045; 80051; 80053; 80306; 80307; 81003; 82810; 83986; 84484; 85025; 93005; 96374; 96375; 99282; 99283; J1885

== ENCOUNTER 2020-01-01 06:40 | Emergency (ER) | payer SELFPAY ==
[2020-01-01 06:44] VITALS: BP 149/100; PULSE 97; RESP 16; TEMP 36.9; O2SAT 98; BMI 20.5
--- NOTE | 2020-01-01 06:50 | ED_ITS ---
HPI - Neck Pain/Injury General: Chief Complaint: Neck Pain/Injury Stated Complaint: NECK PAIN Time Seen by Provider: 01/01/20 06:50 History of Present Illness: HPI Narrative: 44-year-old female comes in complaining of neck pain. She hyperextended her neck while taking some pills last night when she tipped her head back felt a popping sensation and since then has had neck stiffness and pain she holds her neck in a firm position with clinically what appears to be pretty much complete loss of her lordotic curve. She has previously had neck issues and reports having an MRI around April 2015 which showed a bulging disc. Since his episode last night she is not had any radicular pain into her arm which is been localized neck stiffness a little bit more on the right than the left. There is no numbness or tingling into her arms or fingertips and no weakness no other trauma no loss of consciousness. MD complaint: neck pain Onset (ago): day(s) Place: home Radiation: right lateral Severity: moderate and similar to prior neck pain Quality: aching and spasming Duration: constant Relieving factors: remaining still Exacerbating factors: movement of neck Associated symptoms: Reports no associated symptoms; Denies nausea Treatments prior to arrival: other (Muscle relaxer) Review of Systems Const: Denies: fever(s), chills, body aches, change in appetite, fatigue or malaise ENMT: Denies: throat pain, ear or mastoid pain, nasal discharge or nasal congestion Card: Denies: chest pain, edema, dyspnea on exertion or orthopnea Resp: Denies: dyspnea, productive cough or non-productive cough GI: Denies: abdominal pain, nausea, vomiting, hematemesis, coffee ground emesis, diarrhea, constipation, bloating, hematochezia or melena : Denies: flank pain, difficulty voiding, dysuria, urinary frequency or urinary urgency Musc: Reports: neck pain Skin/Breast: Denies: rash or pruritus PFSH ED PFSH: Medical History PSVT (paroxysmal supraventricular tachycardia) Surgical History History of hysterectomy with bilateral oophorectomy Hx of appendectomy Social History (Reviewed 01/01/20 @ 07:10 by MARSHA Mari Smoking and tobacco status: current every day smoker Alcohol intake: current Female Reproductive History: Date of last menstrual period: 07/31/10 Physical Exam Const: COMMON NORMALS: no acute distress GENERAL APPEARANCE: cooperative and comfortable ORIENTATION/CONSCIOUSNESS: Yes awake, Yes oriented to person, Yes oriented to place and Yes oriented to time Neck/C-Spine: GENERAL: Yes tender CERVICAL SPINE: Yes pain with cervical ROM, Yes loss of normal cervical lordosis and Yes Paracervical muscle tenderness Lymph: LYMPHATIC: no lymphadenopathy noted and no lymphedema noted Resp: COMMON NORMALS: normal respiratory effort, No retractions, No use of accessory muscles and clear to auscultation bilaterally AUSCULTATION: clear to auscultation bilaterally Cardio: COMMON NORMALS: regular rate, regular rhythm and No murmurs present (Cardio) RATE: regular rate RHYTHM: regular rhythm GI: COMMON NORMALS: Soft to palpation and No hepatosplenomegaly present AUSCULTATION: Yes normoactive bowel sounds PALPATION: Yes Soft to palpation, No Tenderness to palpation present (GI), No Guarding due to palpation present (GI) and Yes No hepatosplenomegaly present Extremity: COMMON NORMALS: normal to inspection, capillary refill normal, no clubbing, cyanosis or edema, no calf tenderness and no pedal edema Neuro: SENSORIUM/ORIENTATION: Yes oriented to person, Yes oriented to place and Yes oriented to time DEEP TENDON REFLEXES: Right triceps reflex intensity grade: 1+, Left triceps reflex intensity grade: 1+, Rt Biceps (C5, C6): 1+, Left biceps reflex intensity grade: 1+, Right brachioradialis reflex intensity grade: 1+ and Left brachioradialis reflex intensity grade: 1+ OTHER: Sensation and strength the upper extremities normal Skin: COMMON NORMALS: no rashes or lesions noted GENERAL SKIN EXAM: no rashes or lesions noted Course Vital Signs: Vital signs: Vital Signs Temperature 98.5 F 01/01/20 06:44 Pulse Rate 84 01/01/20 09:15 Respiratory Rate 16 01/01/20 06:44 Blood Pressure 165/117 01/01/20 09:15 Pulse Oximetry 100 01/01/20 09:15 Discharge Plan Discharge Patient Disposition: Home, Self-Care Clinical Impression: Strain of neck muscle, Disc disorder of cervical region Condition: Stable Prescriptions: New diclofenac sodium 75 mg tablet,delayed release (DR/EC) 75 mg PO Q12H PRN (Reason: pain) Qty: 20 RF: 0 Skelaxin 800 mg tablet 800 mg PO TID PRN (Reason: muscle pain) Qty: 30 RF: 0 Discontinued cyclobenzaprine 5 mg tablet 5 mg PO Q8H Qty: 20 RF: 0 Referrals: Jessica,ASH, CONSTRUCTION PROJECT ASSISTANT [Primary Care Provider] - Discharge Diet: Usual diet Discharge Activity: Limit activity as instructed Activity Restrictions/Additional Instructions: Follow-up with your primary care doctor for possible referral to pain clinic or PT. If symptoms worsen or change return to you may need an MRI in the future. Discharge Date/Time: 01/01/20 09:15 Coding Level of Care Code ED Rubber Production Machine Operator for Apryl Fwd 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
[2020-01-01] MEDS: morphine 4 mg/mL SDV 1 mL 2 MG IM (07:15)
[2020-01-01] MEDS: ketorolac 60 mg/2 mL INJ IM (07:15)
[2020-01-01] MEDS: orphenadrine 30 mg/mL Inj 2 mL 60 MG IM (07:16)
[2020-01-01] MEDS: morphine 4 mg/mL SDV 1 mL 2 MG IVP (08:31)
[2020-01-01 08:35] VITALS: BP 155/111; PULSE 83; O2SAT 100
[2020-01-01 09:15] VITALS: BP 165/117; PULSE 84; O2SAT 100
== END 2020-01-01 09:15 | disposition home or self-care (01) ==
PROVIDERS: Emergency Provider Family Medicine; PCP Nurse Practitioner Family
DX: S16.1XXA Strain of muscle, fascia and tendon at neck level, initial encounter (principal); M50.90 Cervical disc disorder, unspecified, unspecified cervical region; F17.210 Nicotine dependence, cigarettes, uncomplicated; X50.9XXA Other and unspecified overexertion or strenuous movements or postures, initial encounter
CPT/HCPCS: 12345; 96372; 99281; 99283; J1885; J2270; J2360

== ENCOUNTER 2020-01-04 10:34 | Emergency (ER) | payer SELFPAY ==
[2020-01-04 10:50] VITALS: BP 159/110; PULSE 98; RESP 17; TEMP 37.1; O2SAT 100; BMI 20.8
--- NOTE | 2020-01-04 10:51 | ED_ITS ---
HPI - Back Pain/Injury General: Chief Complaint: Neck Pain/Injury Stated Complaint: NECK PAIN Time Seen by Provider: 01/04/20 10:50 Source: patient Mode of arrival: ambulatory Limitations: no limitations History of Present Illness: HPI Narrative: Patient comes in today for complaints of neck pain. Patient had been here 3 days ago. Patient was unable to get prescriptions filled due to cost of medication. Patient appears in moderate pain and is very guarded with movement of the neck. Patient reports tingling in the middle digit of both fingers. Patient appears well. Patient does report a old injury and previous neck pain. Review of Systems General: Reports: 10 or more systems reviewed and unremarkable except in HPI and below Musc: Reports: neck pain PFS ED PFSH: Medical History (Updated 01/04/20 @ 12:28 by RODERICK Scott) PSVT (paroxysmal supraventricular tachycardia) Surgical History History of hysterectomy with bilateral oophorectomy Hx of appendectomy Social History Smoking and tobacco status: current every day smoker Alcohol intake: current Female Reproductive History: Date of last menstrual period: 07/31/10 Physical Exam Const: COMMON NORMALS: no acute distress and patient oriented x3 GENERAL APPEARANCE: cooperative HENMT: COMMON NORMALS: normocephalic, TM's normal bilaterally and Normal external nose present HEAD & SCALP: normal to inspection and normocephalic NOSE: Normal external nose present TYMPANIC MEMBRANE: TM's normal bilaterally MOUTH: Normal oral and palatal mucosa present THROAT: posterior oropharynx normal Eye: GENERAL EYE: appearance normal, both eyes and all related structures Neck/C-Spine: CERVICAL SPINE: Yes Paracervical muscle tenderness bilateral and Yes Paracervical spasm bilateral Lymph: LYMPHATIC: no lymphadenopathy noted Chest: COMMONS NORMALS: normal inspection of the chest Resp: COMMON NORMALS: normal respiratory effort EFFORT & INSPECTION: Yes able to speak in complete sentences Cardio: COMMON NORMALS: regular rate and regular rhythm RATE: regular rate RHYTHM: regular rhythm GI: COMMON NORMALS: non-tender : COMMON NORMALS: Yes no CVA tenderness BLADDER/KIDNEY EXAM: Yes no CVA tenderness Back/Pelvis: COMMON NORMALS: no CVA tenderness and thoracic and lumbar spine normal to inspection Extremity: COMMON NORMALS: normal to inspection Neuro: COMMON NORMALS: patient oriented x3 and moves all extremities Psych: COMMON NORMALS: mental status grossly normal and cooperative Skin: COMMON NORMALS: no rashes or lesions noted GENERAL SKIN EXAM: no rashes or lesions noted Course Vital Signs: Vital signs: Vital Signs Temperature 98.7 F 01/04/20 10:50 Pulse Rate 98 01/04/20 10:50 Respiratory Rate 17 01/04/20 10:50 Blood Pressure 159/110 01/04/20 10:50 Pulse Oximetry 100 01/04/20 10:50 MDM - Back Pain/Injury MDM Narrative: Medical decision making narrative: Patient comes in today for persistent neck pain. Patient had been seen 3 days ago in the emergency room for similar symptoms. Patient was unable to get prescriptions filled due to the cost. Patient appears well. Exam notes muscle tightness and tenderness to the cervical spine. Differential diagnosis includes intervertebral disc disease, cervical strain, facet arthropathy. CT scan of the neck was ordered no signi ficant protrusions or fractures were noted. Suspect patient might have torticollis or a cervical strain. We will write for orphenadrine which was more in the patient's blood to and has been well-tolerated before flight by her. Patient will also take diclofenac for further pain and inflammation. Encourage plenty of fluids with medication and follow-up with primary care for continued complaints. Discharge Plan Discharge Patient Disposition: Home, Self-Care Clinical Impression: Torticollis Condition: Stable Prescriptions: New orphenadrine citrate 100 mg tablet extended release 100 mg PO BID Qty: 20 RF: 0 Discontinued metaxalone [Skelaxin] 800 mg tablet 800 mg PO TID PRN (Reason: muscle pain) Qty: 30 RF: 0 No Action diclofenac sodium 75 mg tablet,delayed release (DR/EC) 75 mg PO Q12H PRN (Reason: pain) Qty: 20 RF: 0 Zyrtec 10 mg Tablet 10 mg PO DAILY RF: 0 Valium 5 mg Tablet 5 mg PO ONCE RF: 0 Super B Complex-Vitamin C Tablet 1 tab PO DAILY RF: 0 Discharge Orders: Discharge Order (Routine); Ordered 01/04/20 Ordered By: Galdino Sandoval Referrals: ASH Lopez, RECRUITER MANAGER [Primary Care Provider] - Discharge Diet: Usual diet Discharge Activity: Increase activity as tolerated Patient Instructions: Cervical Spine Strain (ED) Activity Restrictions/Additional Instructions: Activity as tolerated. Gentle stretching and range of motion of the neck. Use ice or heat for further comfort. Take medications as directed. Diclofenac is about $15, orphenadrine (Norflex) is about $10. Drink plenty of water with medication. Follow-up with primary care for further evaluation. Return to emergency room for worsening symptoms or new concerns. Coding Level of Care Code ED Stock Handler for Apryl Fwsissy 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
--- NOTE | 2020-01-04 10:56 | CTR_ITS ---
PROCEDURE INFORMATION: Exam: CT Cervical Spine Without Contrast Exam date and time: 01/04/2020 11:14 AM Age: 44 years old Clinical indication: Neck pain; Additional info: Neck pain with radiculopathy TECHNIQUE: Imaging protocol: Computed tomography images of the cervical spine without contrast. Radiation optimization: All CT scans at this facility use at least one of these dose optimization techniques: automated exposure control; mA and/or kV adjustment per patient size (includes targeted exams where dose is matched to clinical indication); or iterative reconstruction. COMPARISON: CT Cervical Spine wo* [id number] 02/21/2016 2:16 PM RADIATION DOSE METRICS: Total DLP: 374.98 mGy-cm FINDINGS: Vertebrae: No acute fracture. Minimal nonspecific reversal of normal cervical lordosis. Discs/Spinal canal/Neural foramina: No significant disc protrusion. No severe spinal canal stenosis. No significant neural foraminal narrowing. Soft tissues: Unremarkable. Lungs: Lung apices are normal. CT/CT cervical spin wo con* [id number] IMPRESSION: No acute findings. Radiation Dose CTDIVOL = (mGy): DLP = 374.98 (mGy-cm)
[2020-01-04] MEDS: dexamethasone 10 mg/mL INJ IM (11:37)
[2020-01-04] MEDS: orphenadrine 30 mg/mL Inj 2 mL 60 MG IM (11:37)
[2020-01-04] MEDS: ketorolac 30 mg/mL INJ IM (11:38)
[2020-01-04] MEDS: ondansetron 4 MG Tablet PO (12:26)
[2020-01-04 12:42] VITALS: BP 128/93; PULSE 77; RESP 18; O2SAT 97
== END 2020-01-04 12:45 | disposition home or self-care (01) ==
PROVIDERS: Emergency Provider Nurse Practitioner Family; PCP Nurse Practitioner Family
DX: M43.6 Torticollis (principal); F17.210 Nicotine dependence, cigarettes, uncomplicated
CPT/HCPCS: 12345; 72125; 96372; 96375; 99281; 99283; J1100; J1885; J2360; Q0162

== ENCOUNTER 2020-01-27 08:54 | Emergency (ER) | payer SELFPAY ==
[2020-01-27 09:02] VITALS: BP 155/124; PULSE 82; RESP 24; TEMP 36.8; O2SAT 100; BMI 21.2
--- NOTE | 2020-01-27 09:18 | XRR_ITS ---
PROCEDURE INFORMATION: Exam: XR Chest, 1 View Exam date and time: 01/27/2020 9:35 AM Age: 44 years old Clinical indication: C/O dyspnea and productive cough x 1 week. TECHNIQUE: Imaging protocol: XR of the chest Views: 1 view. COMPARISON: XR CHEST 12/14/2019 12:58 PM FINDINGS: Lungs: No focal peripheral lung consolidation, air bronchogram formation, or silhouette sign. Pleural space: No pleural effusion or pneumothorax. Heart/Mediastinum: The cardiac silhouette is not enlarged. The mediastinal contours are normal. Bones/joints: Minimal curvature of the thoracic spine convex to the left. XR/XR chest 1V portable [id number] IMPRESSION: No pneumonia.
--- NOTE | 2020-01-27 09:18 | ECG_ITS ---
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 Measurements Intervals Marshall Rate: 87 P: 56 CO: 166 QRS: 13 QRSD: 85 T: 71 QT: 371 QTc: 447 Interpretive Statements SINUS RHYTHM LOW QRS VOLTAGE IN PRECORDIAL LEADS [QRS DEFLECTION < 1.0 mV IN CHEST LEADS] POSSIBLE RIGHT VENTRICULAR CONDUCTION DELAY [RSR (QR) IN V1/V2] Compared to ECG 12/14/2019 12:47:41 Low QRS voltage now present Incomplete right bundle-branch block no longer present ST (T wave) deviation no longer present Electronically Signed On 01-27-2020 16:53:47 CDT by Ernesto Palomares M.D. [id number]
[2020-01-27 09:32] LABS: ABG PCO2 27.5 mmHg (35-45); ABG PH Result 7.54 (7.35-7.45); Base Excess ABG 2.3 mmol/L (-2.0-2.0); Blood Gas Allen Test Pos; Blood Gas Sample Site Brachial, left; Blood Gas Sample Type Arterial; HCO3 ABG 23.7 mmol/L (22-26); Oxygen Device NC
[2020-01-27 09:35] LABS: Basophils % 1.3 %; Eosinophils # 0.1 10^3/uL (0.0-0.8); Eosinophils % 2.5 %; Hematocrit 41.3 % (37.0-47.0); Hemoglobin 14.2 g/dL (11.5-15.3); Lymphocytes # 1.1 10^3/uL (0.8-4.8); Lymphocytes % 35.7 %; Mean Corpuscular HGB Conc 34.4 g/dL (30.0-36.0); Mean Corpuscular Hemoglobin 36.6 pg (28.0-34.0); Mean Corpuscular Volume 106.4 fL (81-99); Mean Platelet Volume 10.5 fL (7.4-10.4); Monocytes # 0.2 10^3/uL (0.2-0.9); Monocytes % 5.6 %; Neutrophils # 1.7 10^3/uL (1.8-7.7); Neutrophils % 54.6 %; Nucleated Red Blood Cells % 0 %; Platelet Count 103 10^3/cmm (130-400); Red Blood Count 3.88 10^6/uL (4.1-5.3); Red Cell Distribution Width 14.1 % (12.1-15.1); White Blood Count 3.2 10^3/uL (4.0-10.0)
[2020-01-27 09:44] LABS: Fibrinogen 241 mg/dL (184-529)
[2020-01-27 09:46] LABS: D Dimer 0.51 ug/mIFEU (0-0.59)
[2020-01-27 09:47] LABS: Lactic Sepsis W/Reflex 1.9 mmol/L (0.5-2.2)
[2020-01-27 09:57] LABS: NT Pro B Type Natriuretic Pept 66 pg/mL (0-125); Procalcitonin 0.07 ng/mL (0-0.5)
[2020-01-27 10:10] LABS: Alanine Aminotransferase 58 U/L (0-33); Albumin Level 4.1 g/dL (3.5-5.2); Alkaline Phosphatase 135 IU/L (35-105); Anion Gap 20.9 (5-19); Aspartate Amino Transferase 115 U/L (0-32); Blood Urea Nitrogen 5 mg/dL (6-20); C Reactive Protein 0.3 mg/L (0.0-4.9); Calcium 9.8 mg/dL (8.5-10.5); Carbon Dioxide 22 mmol/L (22-29); Chloride 99 mmol/L (98-107); Ferritin 412 ng/mL (15-150); Globulin 3.1 g/dL (1.3-4.6); Glomerular Filtration Rate 90.5 mL/min (90-130); Glucose 91 mg/dL (65-115); Magnesium 1.7 mg/dL (1.7-2.3); Osmolality Calculated 281 mOsm/kg (285-295); Potassium 3.9 mmol/L (3.5-5.1); Sodium 138 mmol/L (136-145); Total Bilirubin 1.3 mg/dL (0.15-1.2); Total Protein 7.2 g/dL (6.6-8.7)
--- NOTE | 2020-01-27 10:15 | W.ED.SOB ---
HPI - SOB/Dyspnea General: Chief Complaint: Shortness of Breath/Dyspnea Stated Complaint: fever/cough/sob Time Seen by Provider: 01/27/20 09:18 History of Present Illness: HPI Narrative: 44-year-old female comes into the emergency room with a complaint of shortness of breath she states she had a known exposure to COVID +19 patient 1 week ago. Her symptoms started 3 days ago she had increasing shortness of breath she reports a temp up to 103. 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 Her symptoms first started 3 days ago she had some shortness of breath that resolved but her cough persisted she has a clear sputum productive cough is progressively worsened through the last 2 days until she came in today. She denies any recent antibiotics. She had one episode of vomiting and one episode of loose stools. She denies any melena hematemesis or coffee-ground emesis. MD elicited complaint: shortness of breath and cough Pertinent past history: other (Possible COVID-19 exposure 1 week ago) Onset (ago): day(s) (3 to 4 days) Context: other (Potential exposure 1 week ago) Timing: constant Severity: moderate Exacerbating factors: inspiration Relieving factors: nothing Associated symptoms: Reports cough (Minimally productive clear sputum), lightheadedness and vomiting Treatment prior to arrival: none Review of Systems Card: Reports: lightheadedness GI: Reports: vomiting [facility] ED PFSH: Medical History Fibromyalgia GERD (gastroesophageal reflux disease) HTN (hypertension) PSVT (paroxysmal supraventricular tachycardia) Surgical History History of hysterectomy with bilateral oophorectomy History of radiofrequency ablation (RFA) procedure for cardiac arrhythmia Hx of appendectomy S/P carpal tunnel release S/P tubal ligation Family History Mother Atrial fibrillation Hypertension Social History Smoking and tobacco status: current every day smoker cigarettes Packs smoked per day: 0.5 Years cigarettes smoked: 30 Alcohol intake: current Alcohol intake frequency: 0-2 Drinks per Day Lives independently: Yes Household members: spouse and family Marital status: service: No Current occupational status: unemployed History of recent travel: No Current gender identity: Female Female Reproductive History: Date of last menstrual period: 07/31/10 Physical Exam Const: COMMON NORMALS: no acute distress GENERAL APPEARANCE: cooperative and comfortable ORIENTATION/CONSCIOUSNESS: Yes awake, Yes oriented to person, Yes oriented to place and Yes oriented to time HENMT: COMMON NORMALS: normocephalic, atraumatic, hearing grossly normal bilaterally, external ears normal, EAC's normal, TM's normal bilaterally, Normal nasal mucous membranes and turbinates present, moist oral mucous membranes and oropharynx normal HEAD & SCALP: normocephalic and atraumatic NOSE: Normal nasal mucous membranes and turbinates present EXTERNAL EAR: Yes external ears normal EXTERNAL AUDITORY CANAL: EAC's normal TYMPANIC MEMBRANE: TM's normal bilaterally Eye: COMMON NORMALS: Equal, round and reactive pupils present, EOMs intact bilaterally, conjunctivae normal and no scleral icterus CONJUNCTIVA: Yes conjunctivae normal PUPIL: Yes Equal, round and reactive pupils present Neck/C-Spine: COMMON NORMALS: full ROM, no lymphadenopathy, supple and no JVD Lymph: LYMPHATIC: no lymphadenopathy noted and no lymphedema noted Resp: COMMON NORMALS: normal respiratory effort, No retractions, No use of accessory muscles and clear to auscultation bilaterally AUSCULTATION: clear to auscultation bilaterally Cardio: COMMON NORMALS: no JVD, regular rate, regular rhythm and No murmurs present (Cardio) RATE: regular rate RHYTHM: regular rhythm GI: COMMON NORMALS: Soft to palpation and No hepatosplenomegaly present AUSCULTATION: Yes normoactive bowel sounds PALPATION: Yes Soft to palpation, No Tenderness to palpation present (GI), No Guarding due to palpation present (GI) and Yes No hepatosplenomegaly present Extremity: COMMON NORMALS: normal to inspection, capillary refill normal, no clubbing, cyanosis or edema, no calf tenderness and no pedal edema Neuro: SENSORIUM/ORIENTATION: Yes oriented to person, Yes oriented to place and Yes oriented to time Skin: COMMON NORMALS: no rashes or lesions noted GENERAL SKIN EXAM: no rashes or lesions noted Course Vital Signs: Vital signs: Vital Signs Temperature 98.3 F 06/29/20 09:02 Pulse Rate 75 01/27/20 12:32 Respiratory Rate 16 01/27/20 12:32 Blood Pressure 123/85 01/27/20 12:32 Pulse Oximetry 98 01/27/20 12:32 MDM - SOB/Dyspnea MDM Narrative: Medical decision making narrative: Patient is having intermittent episodes of wheezing. We will go ahead and start on albuterol. She is not having a fever at this time. No other significant laboratory findings any chest x-ray is not suggestive of COVID. She has COVID swabbing done we will get a set up for follow-up Dr. Jackson on a telehealth visit. Additionally I asked her to quarantine herself from any other exposures until the COVID results have returned. She expresses understanding of this the patient was given aspirin Lab Data: Attestation: I reviewed the patient's lab results. Labs: Lab Results 01/27/20 01/27/20 01/27/20 Range/Units 09:16 09:25 09:25 WBC (4.0-10.0) 10^3/ uL RBC (4.1-5.3) 10^6/u L Hgb (11.5-15.3) g/dL Hct (37.0-47.0) % MCV (81-99) fL MCH (28.0-34.0) pg MCHC (30.0-36.0) g/dL RDW (12.1-15.1) % Plt Count (130-400) 10^3/c mm MPV (7.4-10.4) fL Neut % (Auto) % Lymph % (Auto) % [place] % (Auto) % Eos % (Auto) % Baso % (Auto) % Neut # (Auto) (1.8-7.7) 10^3/u L Lymph # (Auto) (0.8-4.8) 10^3/u L [place] # (Auto) (0.2-0.9) 10^3/u L Eos # (Auto) (0.0-0.8) 10^3/u L Baso # (Auto) (0.0-0.1) 10^3/u L Nucleated RBC % (a uto) % Nucleated RBCs # /100WBC Fibrinogen 241 (184-529) mg/dL D-Dimer 0.51 (0-0.59) ug/mIFE U Specimen Type Arterial Sample Site Brachial, left ABG pH 7.54 H (7.35-7.45) ABG pCO2 27.5 L (35-45) mmHg ABG pO2 118.0 H (80.0-100.0) mmH g ABG HCO3 23.7 (22-26) mmol/L ABG Base Excess 2.3 H (-2.0-2.0) mmol/ L Donny Test Pos Hematocrit 43.0 (37-47) % O2 Delivery Device Nc O2 Liters/Min 2.0 % FiO2 28.0 % Weigh And Charge Worker ID cak Sodium 138 (136-145) mmol/L Potassium 3.9 (3.5-5.1) mmol/L Chloride 99 (98-107) mmol/L Carbon Dioxide 22 (22-29) mmol/L Anion Gap 20.9 H (5-19) BUN 5 L (6-20) mg/dL Creatinine 0.7 (0.5-0.9) mg/dL GFR Calculation 90.5 (90-130) mL/min Glucose 91 (65-115) mg/dL Calculated Osmolal ity 281 L (285-295) mOsm/k g Lactic Acid (0.5-2.2) mmol/L Calcium 9.8 (8.5-10.5) mg/dL Magnesium 1.7 (1.7-2.3) mg/dL Ferritin 412 H (15-150) ng/mL Total Bilirubin 1.3 H (0.15-1.2) mg/dL AST 115 H (0-32) U/L ALT 58 H (0-33) U/L Alkaline Phosphata se 135 H (35-105) IU/L C-Reactive Protein 0.3 (0.0-4.9) mg/L NT-Pro-B Natriuret Pep 66 (0-125) pg/mL Total Protein 7.2 (6.6-8.7) g/dL Albumin 4.1 (3.5-5.2) g/dL Globulin 3.1 (1.3-4.6) g/dL Procalcitonin 0.07 (0-0.5) ng/mL Urine Color (Yellow) Urine Appearance (CLEAR) Urine pH (5-7) Ur Specific Gravit y (1.005-1.030) Urine Protein (Negative) Urine Glucose (UA) (Normal) Urine Ketones (Negative) Urine Blood (Negative) Urine Nitrate (Negative) Urine Bilirubin (NEGATIVE) Prot Sulfosalicyli c Acd (Negative) Urine Urobilinogen (Negative) mg/dL Ur Leukocyte Rachel ase (Negative) Nasal/Oral COVID-1 9 PCR Influenza Type A A g (Negative) Influenza Type B A g (Negative) 01/27/20 01/27/20 01/27/20 Range/Units 09:25 09:25 10:25 WBC 3.2 L (4.0-10.0) 10^3/ uL RBC 3.88 L (4.1-5.3) 10^6/u L Hgb 14.2 (11.5-15.3) g/dL Hct 41.3 (37.0-47.0) % MCV 106.4 H (81-99) fL MCH 36.6 H (28.0-34.0) pg MCHC 34.4 (30.0-36.0) g/dL RDW 14.1 (12.1-15.1) % Plt Count 103 L (130-400) 10^3/c mm MPV 10.5 H (7.4-10.4) fL Neut % (Auto) 54.6 % Lymph % (Auto) 35.7 % [place] % (Auto) 5.6 % Eos % (Auto) 2.5 % Baso % (Auto) 1.3 % Neut # (Auto) 1.7 L (1.8-7.7) 10^3/u L Lymph # (Auto) 1.1 (0.8-4.8) 10^3/u L [place] # (Auto) 0.2 (0.2-0.9) 10^3/u L Eos # (Auto) 0.1 (0.0-0.8) 10^3/u L Baso # (Auto) 0.0 (0.0-0.1) 10^3/u L Nucleated RBC % (a uto) 0 % Nucleated RBCs # 0.0 /100WBC Fibrinogen (184-529) mg/dL D-Dimer (0-0.59) ug/mIFE U Specimen Type Sample Site ABG pH (7.35-7.45) ABG pCO2 (35-45) mmHg ABG pO2 (80.0-100.0) mmH g ABG HCO3 (22-26) mmol/L ABG Base Excess (-2.0-2.0) mmol/ L Donny Test Hematocrit (37-47) % O2 Delivery Device O2 Liters/Min % FiO2 % Weigh And Charge Worker ID Sodium (136-145) mmol/L Potassium (3.5-5.1) mmol/L Chloride (98-107) mmol/L Carbon Dioxide (22-29) mmol/L Anion Gap (5-19) BUN (6-20) mg/dL Creatinine (0.5-0.9) mg/dL GFR Calculation (90-130) mL/min Glucose (65-115) mg/dL Calculated Osmolal ity (285-295) mOsm/k g Lactic Acid 1.9 (0.5-2.2) mmol/L Calcium (8.5-10.5) mg/dL Magnesium (1.7-2.3) mg/dL Ferritin (15-150) ng/mL Total Bilirubin (0.15-1.2) mg/dL AST (0-32) U/L ALT (0-33) U/L Alkaline Phosphata se (35-105) IU/L C-Reactive Protein (0.0-4.9) mg/L NT-Pro-B Natriuret Pep (0-125) pg/mL Total Protein (6.6-8.7) g/dL Albumin (3.5-5.2) g/dL Globulin (1.3-4.6) g/dL Procalcitonin (0-0.5) ng/mL Urine Color (Yellow) Urine Appearance (CLEAR) Urine pH (5-7) Ur Specific Gravit y (1.005-1.030) Urine Protein (Negative) Urine Glucose (UA) (Normal) Urine Ketones (Negative) Urine Blood (Negative) Urine Nitrate (Negative) Urine Bilirubin (NEGATIVE) Prot Sulfosalicyli c Acd (Negative) Urine Urobilinogen (Negative) mg/dL Ur Leukocyte Rachel ase (Negative) Nasal/Oral COVID-1 9 PCR Not detected Influenza Type A A g (Negative) Influenza Type B A g (Negative) 01/27/20 01/27/20 Range/Units 10:25 10:55 WBC (4.0-10.0) 10^3/ uL RBC (4.1-5.3) 10^6/u L Hgb (11.5-15.3) g/dL Hct (37.0-47.0) % MCV (81-99) fL MCH (28.0-34.0) pg MCHC (30.0-36.0) g/dL RDW (12.1-15.1) % Plt Count (130-400) 10^3/c mm MPV (7.4-10.4) fL Neut % (Auto) % Lymph % (Auto) % [place] % (Auto) % Eos % (Auto) % Baso % (Auto) % Neut # (Auto) (1.8-7.7) 10^3/u L Lymph # (Auto) (0.8-4.8) 10^3/u L [place] # (Auto) (0.2-0.9) 10^3/u L Eos # (Auto) (0.0-0.8) 10^3/u L Baso # (Auto) (0.0-0.1) 10^3/u L Nucleated RBC % (a uto) % Nucleated RBCs # /100WBC Fibrinogen (184-529) mg/dL D-Dimer (0-0.59) ug/mIFE U Specimen Type Sample Site ABG pH (7.35-7.45) ABG pCO2 (35-45) mmHg ABG pO2 (80.0-100.0) mmH g ABG HCO3 (22-26) mmol/L ABG Base Excess (-2.0-2.0) mmol/ L Donny Test Hematocrit (37-47) % O2 Delivery Device O2 Liters/Min % FiO2 % Weigh And Charge Worker ID Sodium (136-145) mmol/L Potassium (3.5-5.1) mmol/L Chloride (98-107) mmol/L Carbon Dioxide (22-29) mmol/L Anion Gap (5-19) BUN (6-20) mg/dL Creatinine (0.5-0.9) mg/dL GFR Calculation (90-130) mL/min Glucose (65-115) mg/dL Calculated Osmolal ity (285-295) mOsm/k g Lactic Acid (0.5-2.2) mmol/L Calcium (8.5-10.5) mg/dL Magnesium (1.7-2.3) mg/dL Ferritin (15-150) ng/mL Total Bilirubin (0.15-1.2) mg/dL AST (0-32) U/L ALT (0-33) U/L Alkaline Phosphata se (35-105) IU/L C-Reactive Protein (0.0-4.9) mg/L NT-Pro-B Natriuret Pep (0-125) pg/mL Total Protein (6.6-8.7) g/dL Albumin (3.5-5.2) g/dL Globulin (1.3-4.6) g/dL Procalcitonin (0-0.5) ng/mL Urine Color Yellow (Yellow) Urine Appearance Clear (CLEAR) Urine pH 8.5 H (5-7) Ur Specific Gravit y 1.010 (1.005-1.030) Urine Protein Neg (Negative) Urine Glucose (UA) Norm (Normal) Urine Ketones Negative (Negative) Urine Blood Neg (Negative) Urine Nitrate Negative (Negative) Urine Bilirubin Neg (NEGATIVE) Prot Sulfosalicyli c Acd Negative (Negative) Urine Urobilinogen Norm (Negative) mg/dL Ur Leukocyte Rachel ase Negative (Negative) Nasal/Oral COVID-1 9 PCR Influenza Type A A g Negative (Negative) Influenza Type B A g Negative (Negative) Discharge Plan Discharge Patient Disposition: Home, Self-Care Clinical Impression: URI (upper respiratory infection) Condition: Stable Prescriptions: New albuterol sulfate 90 mcg/actuation HFA aerosol inhaler 2 inh INHALATION Q4H PRN (Reason: shortness of breath or wheezing) Qty: 18 RF: 0 No Action cetirizine [Zyrtec] 10 mg Tablet 10 mg PO DAILY RF: 0 B-complex with vitamin C [Super B Complex-Vitamin C] Tablet 1 tab PO DAILY RF: 0 Discharge Orders: Discharge Order (Routine); Ordered 01/27/20 Ordered By: Fer Reynoso Referrals: ASH Lopez, [facility] DISPATCHER [Primary Care Provider] - Discharge Diet: Usual diet Discharge Activity: Limit activity as instructed Activity Restrictions/Additional Instructions: Recommend that you self quarantine. You should avoid any older patients living in your home, if at all possible you should not stay in the same home until your COVID results return. If you do leave your home wear a mask at all times wash hands regularly avoid contact with any older persons or persons with chronic medical illness. If you have any worsening of symptoms return to the emergency room immediately. This management will call to make a follow-up appointment with Dr. Jackson via video tomorrow. Discharge Date/Time: 01/27/20 12:33 Coding Level of Care Code ED [employer] Consultant for Apryl Fwd 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
[2020-01-27] MEDS: ondansetron 2 mg/ML SDV 2 mL 4 MG IV (10:31)
[2020-01-27] MEDS: LORazepam 2 mg/mL INJ 1 mL 1 MG IVP (10:31)
--- NOTE | 2020-01-27 10:59 | PC.NURSE ---
tv not working
[2020-01-27 11:12] LABS: Add Urine Microscopic? NO
[2020-01-27 11:38] LABS: Bilirubin Urine Neg (NEGATIVE); Blood Urine Neg (Negative); Glucose Urine UA Norm (Normal); Ketones Urine Negative (Negative); Leukocyte Esterase Urine Negative (Negative); Nitrate Urine Negative (Negative); Protein Urine Neg (Negative); Sulfosalicylic Acid Urine Negative (Negative); Urine Appearance Clear (CLEAR); Urine Color Yellow (Yellow); Urobilinogen Urine Norm (Negative); pH Urine 8.5 (5-7)
[2020-01-27 11:59] LABS: Influenza A by IFA Negative (Negative); Influenza B by IFA Negative (Negative)
[2020-01-27 12:32] VITALS: BP 123/85; PULSE 75; RESP 16; O2SAT 98
--- NOTE | 2020-01-27 12:47 | PC.NURSE ---
Read and agree with assessment.
--- NOTE | 2020-01-27 13:29 | DCPLANNER ---
procedure manager was asked to schedule a follow up appointment for patient with Dr. Jackson at [facility]. procedure manager called [facility], a follow up appointment is scheduled for January 27 at 8:00 via video appointment. Clinic will call patient with appointment information.
[2020-01-28 08:56] LABS: Coronavirus Lab Test PTC NOT DETECTED
--- NOTE | 2020-01-29 14:34 | DCPLANNER ---
Patient did attend appointment scheduled for 01.28.20 with [facility].
== END 2020-01-27 12:33 | disposition home or self-care (01) ==
PROVIDERS: Emergency Provider Family Medicine; PCP Nurse Practitioner Family
DX: J06.9 Acute upper respiratory infection, unspecified (principal); I10 Essential (primary) hypertension; F17.210 Nicotine dependence, cigarettes, uncomplicated
CPT/HCPCS: 12345; 36415; 36600; 71045; 80053; 81003; 82728; 82803; 83605; 83735; 83880; 84145; 85025; 85378; 85384; 86140; 87040; 87635; 87804; 93005; 96361; 96374; 96375; 99283; 99284; J2060; J2405

== ENCOUNTER 2020-02-03 16:20 | Emergency (ER) | payer SELFPAY ==
[2020-02-03 16:39] VITALS: BP 114/86; PULSE 98; RESP 18; TEMP 36.9; O2SAT 97; BMI 21.7
--- NOTE | 2020-02-03 17:22 | XRR_ITS ---
PROCEDURE INFORMATION: Exam: XR Left Ribs with PA Chest, 3 Views Exam date and time: 02/03/2020 6:00 PM Age: 44 years old Clinical indication: Pain and injury or trauma; Fall; Initial encounter; Rib area, left side; Blunt trauma; Chest wall pain; Injury date: 01/31/20 TECHNIQUE: Imaging protocol: XR Left ribs 3 views with PA chest. COMPARISON: CR XR chest 1V portable [id number] 01/27/2020 9:40 AM FINDINGS: Lungs: See Soft tissues finding. Pleural space: Unremarkable. No pleural effusion. No pneumothorax. Heart/Mediastinum: Unremarkable. No cardiomegaly. Bones/joints: See Soft tissues finding. Soft tissues: The submitted view of the chest is unremarkable. No acute cardiopulmonary process. The ribs are grossly normal. No acute or chronic fracture appreciated. No lytic process or expansile process. No rib notching. XR/XR ribs LT mn 3V w CXR1V [id number] IMPRESSION: Unremarkable ribs.
--- NOTE | 2020-02-03 17:32 | ED_ITS ---
HPI - General Adult General: Chief complaint: General Medical Stated complaint: fall/rib pain Time Seen by Provider: 02/03/20 17:21 History of Present Illness: HPI narrative: Patient rolled over in bed 2 days ago and felt a pop in her rib area is hurt since she did come in today to get evaluated MD complaint: Left-sided rib pain Onset (ago): day(s) Location: left (Ribs) Radiation: non-radiation Severity scale (1-10): 4 Quality: aching Pain Consistency: constant Associated symptoms: Deny chest pain, dyspnea, headache(s), nausea, rash or vomiting Review of Systems Const: Denies: fever(s), chills or body aches Eyes: Denies: change in vision or blurry vision ENMT: Denies: throat pain or nasal congestion Card: Denies: chest pain or dyspnea on exertion Resp: Denies: dyspnea, productive cough or non-productive cough GI: Denies: abdominal pain, nausea or vomiting Musc: Reports: other (Ribs hurt on left side); Denies: extremity pain Skin/Breast: Denies: rash Neuro: Denies: headache(s) Psych: Denies: anxiety or depression Maxime/Lymph: Denies: easy bruising PFSH ED PFSH: Medical History (Updated 02/03/20 @ 18:09 by RODERICK Lemon) Fibromyalgia GERD (gastroesophageal reflux disease) HTN (hypertension) PSVT (paroxysmal supraventricular tachycardia) Surgical History History of hysterectomy with bilateral oophorectomy History of radiofrequency ablation (RFA) procedure for cardiac arrhythmia Hx of appendectomy S/P carpal tunnel release S/P tubal ligation Family History Mother Atrial fibrillation Hypertension Social History Smoking and tobacco status: current every day smoker cigarettes Packs smoked per day: 0.5 Years cigarettes smoked: 30 Alcohol intake: current Alcohol intake frequency: 0-2 Drinks per Day Lives independently: Yes Household members: spouse and family Marital status: service: No Current occupational status: unemployed History of recent travel: No Current gender identity: Female Female Reproductive History: Date of last menstrual period: 07/31/10 Physical Exam Const: COMMON NORMALS: no acute distress, average body habitus and patient oriented x3 HENMT: COMMON NORMALS: normocephalic HEAD & SCALP: normal to inspection and normocephalic FACE & SINUS: normal facial exam Eye: COMMON NORMALS: conjunctivae normal GENERAL EYE: appearance normal, both eyes and all related structures CONJUNCTIVA: Yes conjunctivae normal Neck/C-Spine: COMMON NORMALS: no JVD Chest: COMMONS NORMALS: normal inspection of the chest BREAST/AXILLA PALPATION: Yes other (Tender left lower rib area underneath the left breast with palpation she has wrapping on no bruising swelling noted) Resp: COMMON NORMALS: normal respiratory effort and clear to auscultation bilaterally AUSCULTATION: clear to auscultation bilaterally Cardio: COMMON NORMALS: no JVD, regular rate and regular rhythm RATE: regular rate RHYTHM: regular rhythm GI: COMMON NORMALS: Normal to inspection, nondistended, normoactive bowel sounds present Extremity: COMMON NORMALS: normal to inspection and full ROM Neuro: COMMON NORMALS: patient oriented x3 Course Vital Signs: Vital signs: Vital Signs Temperature 98.5 F 02/03/20 16:39 Pulse Rate 76 02/03/20 18:37 Respiratory Rate 14 02/03/20 18:37 Blood Pressure 125/85 02/03/20 18:37 Pulse Oximetry 99 02/03/20 18:37 Discharge Plan Discharge Patient Disposition: Home, Self-Care Clinical Impression: Rib pain on left side Condition: Stable Prescriptions: No Action cetirizine [Zyrtec] 10 mg Tablet 10 mg PO DAILY RF: 0 B-complex with vitamin C [Super B Complex-Vitamin C] Tablet 1 tab PO DAILY RF: 0 meloxicam 15 mg Tablet 15 mg PO DAILY RF: 0 Discharge Orders: Discharge Order (Routine); Ordered 02/03/20 Ordered By: Trae Brewer Referrals: ASH Lopez, SOLE LEVELER MACHINE [Primary Care Provider] - Discharge Diet: Usual diet Discharge Activity: Increase activity as tolerated Activity Restrictions/Additional Instructions: Take your prescription medicines splint yourself and your coughing can ice the area down follow-up your family medical provider if no significant improvement in few days Discharge Date/Time: 02/03/20 18:38 Coding Level of Care Code ED Finished Goods Inspector for Chg Fwd 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
[2020-02-03 17:41] VITALS: BP 119/98; PULSE 93; RESP 14; O2SAT 98
[2020-02-03] MEDS: ketorolac 60 mg/2 mL INJ IM (18:17)
[2020-02-03 18:37] VITALS: BP 125/85; PULSE 76; RESP 14; O2SAT 99
== END 2020-02-03 18:38 | disposition home or self-care (01) ==
PROVIDERS: Emergency Provider Nurse Practitioner Family; PCP Nurse Practitioner Family
DX: R07.81 Pleurodynia (principal); I10 Essential (primary) hypertension; F17.210 Nicotine dependence, cigarettes, uncomplicated
CPT/HCPCS: 12345; 71101; 96372; 99281; 99283; J1885

== ENCOUNTER 2020-02-25 13:25 | Emergency (ER) | payer SELFPAY ==
[2020-02-25 13:33] VITALS: BP 107/76; PULSE 102; RESP 12; TEMP 36.8; O2SAT 96; BMI 22.0
--- NOTE | 2020-02-25 13:41 | ED_ITS ---
HPI - Fall General: Chief Complaint: Fall Stated Complaint: FALL WITH BACK AND TAILBONE PAIN Time Seen by Provider: 02/25/20 13:39 History of Present Illness: HPI Narrative: Patient is a 44-year-old female comes to the ED after having a fall with low back and tailbone pain. Injury occurred just prior to arrival and patient says she slipped and her lower back hit the corner of stairs. Patient rates pain a 9 out of 10. Denies any numbness or tingling or loss of sensation to her lower extremities, pelvic anesthesia or bladder or bowel incontinence. Patient does report some pain radiating down into the left thigh. Associated symptoms-after fall: Denies abdominal pain, chest pain, headache(s), hematuria or neck pain Review of Systems Const: Denies: fever(s), chills or fatigue Eyes: Denies: change in vision or eye discomfort ENMT: Denies: throat pain, odynophagia, nasal discharge or nasal congestion Card: Denies: chest pain, palpitations, edema, swelling of feet/ankles, dyspnea on exertion or orthopnea Resp: Denies: dyspnea, productive cough or non-productive cough GI: Denies: abdominal pain, nausea, vomiting, diarrhea, constipation or hematochezia : Denies: flank pain, dysuria or hematuria Musc: Reports: back pain; Denies: neck pain or extremity swelling Skin/Breast: Denies: rash or new lesions Neuro: Denies: headache(s), numbness in extremities or weakness in extremities PFS ED PFSH: Medical History Fibromyalgia GERD (gastroesophageal reflux disease) HTN (hypertension) PSVT (paroxysmal supraventricular tachycardia) Surgical History History of hysterectomy with bilateral oophorectomy History of radiofrequency ablation (RFA) procedure for cardiac arrhythmia Hx of appendectomy S/P carpal tunnel release S/P tubal ligation Family History Mother Atrial fibrillation Hypertension Social History Smoking and tobacco status: current every day smoker cigarettes Packs smoked per day: 0.5 Years cigarettes smoked: 30 Alcohol intake: current Alcohol intake frequency: 0-2 Drinks per Day Lives independently: Yes Household members: spouse and family Marital status: service: No Current occupational status: unemployed History of recent travel: No Current gender identity: Female Female Reproductive History: Date of last menstrual period: 07/31/10 Physical Exam Const: COMMON NORMALS: patient oriented x3 and alert GENERAL APPEARANCE: cooperative; not comfortable (Patient appears uncomfortable and is laying on side while in the exam bed.) HENMT: COMMON NORMALS: normocephalic HEAD & SCALP: normocephalic MOUTH: Normal oral and palatal mucosa present THROAT: posterior oropharynx normal and uvula midline Eye: COMMON NORMALS: Equal, round and reactive pupils present PUPIL: Yes Equal, round and reactive pupils present Neck/C-Spine: COMMON NORMALS: supple GENERAL: Yes normal visual inspection Resp: COMMON NORMALS: normal respiratory effort, No retractions, No use of accessory muscles and clear to auscultation bilaterally AUSCULTATION: clear to auscultation bilaterally Cardio: COMMON NORMALS: regular rate, regular rhythm, S1 normal heart sound present, S2 normal heart sound present, No gallops present (Cardio), No clicks present (Cardio), No murmurs present (Cardio) and Peripheral pulses 2+ throughout RATE: regular rate RHYTHM: regular rhythm HEART SOUNDS: S1 normal heart sound present and S2 normal heart sound present PERIPHERAL PULSES: Peripheral pulses 2+ throughout GI: COMMON NORMALS: Normal to inspection, nondistended, normoactive bowel soun ds present, Soft to palpation, non-tender and no masses PALPATION: Yes Soft to palpation : COMMON NORMALS: Yes no CVA tenderness BLADDER/KIDNEY EXAM: Yes no CVA tenderness Back/Pelvis: COMMON NORMALS: no CVA tenderness LUMBAR SPINE/LOWER BACK: Yes pain with ROM, Yes lumbar spinal tenderness Lumbar spinal tenderness location: L5, Yes paraspinal muscle tenderness Lumbar paraspinal muscle tenderness: bilateral and Yes other soft tissue findings (Patient has contusion with swelling in the lower back. Some ecchymosis present as well.) Other lumbar soft tissue findings laterality: bilateral Extremity: COMMON NORMALS: normal to inspection and no pedal edema Neuro: COMMON NORMALS: patient oriented x3 and moves all extremities SENSORIUM/ORIENTATION: Yes alert Skin: GENERAL SKIN EXAM: dry skin Course Vital Signs: Vital signs: Vital Signs Temperature 98.3 F 07/28/20 13:33 Pulse Rate 102 H 02/25/20 13:33 Respiratory Rate 18 02/25/20 15:24 Blood Pressure 107/76 02/25/20 13:33 Pulse Oximetry 96 02/25/20 13:33 MDM - Fall MDM Narrative: Medical decision making narrative: Patient is a 44-year-old female who comes to the ED with lower back pain after having a fall. Physical exam shows some swelling near the lumbar spine and tenderness upon palp patient of the lumbar spine. Patient has no pelvic anesthesia, bladder or bowel incontinence, numbness or tingling or weakness to the extremities. CT of the lumbar spine showed sacral fracture. Patient was given written prescription for pain medication and told to rest and to use cushions to help with pain if sitting. Follow-up with PCP in 7 to 10 days. Return to ED precautions given including any neurological change in symptoms such as bladder or bowel incontinence, weakness or loss of sensation to lower extremities. Patient understood and agreed with plan. Imaging Data^: Other CT: Attestation: I personally reviewed and interpreted this imaging study as follows: Radiologist's impression: [address] [address] [address] Scan Report Signed Patient: Denisa Orourke Unit #: [id number] : 1975 Age/Sex: 44 / F ADM Date: 02/25/20 Loc: ER Room/Bed: Attending Dr: Ordering Provider/Ordering MD: Yoshi Pope Date of Service: 02/25/20 Procedure(s): CT lumbar spine wo con* [id number] Accession Number(s): [id number] Report Number: [id number] WS: [id number] CT LUMBAR SPINE TECHNIQUE: Noncontrast CT of the lumbar spine with coronal and sagittal reformatted images. CLINICAL INFORMATION: injury with pain on lumbar spine COMPARISON: None. DLP: 6360.[address] scans at [facility] use at least one of these dose optimization techniques: automated exposure control; mA and/or kV adjustment per patient size (includes targeted exams where dose is matched to clinical indication); or iterative reconstruction. FINDINGS: Exaggeration of the normal lumbar lordosis. Grade 1 anterolisthesis L5 on S1 measuring 6 mm. Chronic bilateral pars defects. Mild central canal stenosis L5-S1. Mild disc bulging L3-L4 L4-L5 and L5-S1. No acute compression fractures. Degenerative arthritis both sacroiliac joints. Comminuted minimally displaced fractures involving the S4 sacral segment extending to the S4-5 junction with minimal displacement This extends eccentric to the right into the body of the sacrum. Distal Coccyx is incompletely included on this exam Notified SALLY Mix at 02/25/2020 2:[address]/CT lumbar spine wo con* [id number] IMPRESSION: 1. Slightly comminuted fracture involving the S4 level extending to the S5 segment eccentric to the right. This extends into the right greater than left body of the sacrum. 2. Grade 1 anterolisthesis L5 on S1 measuring 6 mm with chronic bilateral pars defects. 3. Mild bilateral L4-5 and moderate bilateral L5-S1 foraminal narrowing. 4. Moderate to advanced facet arthropathy L4-L5 and L5-S1. Dictated By: Jesus Kendall MD Signed By: Jesus Kendall MD Signed Date/Time: 02/25/20 1453 DD/ 1434 Discharge Plan Discharge Patient Disposition: Home Clinical Impression: Closed sacral fracture Qualifiers: Encounter type: initial encounter Zone of sacrum fracture: zone I of sacrum Fracture alignment: minimally displaced Qualified Code(s): S32.111A - Minimally displaced Zone I fracture of sacrum, initial encounter for closed fracture Condition: Stable Prescriptions: No Action Prilosec OTC 20 mg Tablet,Delayed Release (Dr/Ec) 20 mg PO DAILY RF: 0 cetirizine [Zyrtec] 10 mg Tablet 10 mg PO DAILY RF: 0 B-complex with vitamin C [Super B Complex-Vitamin C] Tablet 1 tab PO DAILY RF: 0 Discharge Orders: Discharge Order (Routine); Ordered 02/25/20 Ordered By: Yoshi Pope Referrals: ASH Lopez, [facility] [Primary Care Provider] - Discharge Diet: Regular Discharge Activity: Limit activity as instructed Patient Instructions: Sacral Fracture (ED) Activity Restrictions/Additional Instructions: Follow-up with medical provider as directed in 7 days. Take medications as prescribed. You can also take [id number] ibuprofen to help with pain as well. Apply ice to area to help with swelling and symptoms. Use cushions if you are going to sit down on a seat. Return to the ER or your medical provider if condition worsens. Please read and understand discharge instructions. If any questions, please ask. Discharge Date/Time: 02/25/20 15:32 Coding Level of Care Code ED [employer] for Apryl Salas 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
--- NOTE | 2020-02-25 13:47 | CT_ITS ---
WS: [id number] CT LUMBAR SPINE TECHNIQUE: Noncontrast CT of the lumbar spine with coronal and sagittal reformatted images. CLINICAL INFORMATION: injury with pain on lumbar spine COMPARISON: None. DLP: 6360.[address] scans at [facility] use at least one of these dose optimization techniques: automat ed exposure control; mA and/or kV adjustment per patient size (includes targeted exams where dose is matched to clinical indication); or iterative reconstruction. FINDINGS: Exaggeration of the normal lumbar lordosis. Grade 1 anterolisthesis L5 on S1 measuring 6 mm. Chronic bilateral pars defects. Mild central canal stenosis L5-S1. Mild disc bulging L3-L4 L4-L5 and L5-S1. No acute compression fractures. Degenerative arthritis both sacroiliac joints. Comminuted minimally displaced fractures involving the S4 sacral segment extending to the S4-5 juncti on with minimal displacement This extends eccentric to the right into the body of the sacrum. Distal Coccyx is incompletely included on this exam Notified SALLY Mix at 02/25/2020 2:[address]/CT lumbar spine wo con* [id number] IMPRESSION: 1. Slightly comminuted fracture involving the S4 level extending to the S5 seg ment eccentric to the right. This extends into the right greater than left body of the sacrum. 2. Grade 1 anterolisthesis L5 on S1 measuring 6 mm with chronic bilateral pars defects. 3. Mild bilateral L4-5 and moderate bilateral L5-S1 foraminal narrowing. 4. Moderate to advanced facet arthropathy L4-L5 and L5-S1.
[2020-02-25 14:03] VITALS: RESP 18
[2020-02-25 14:07] VITALS: RESP 18
[2020-02-25 15:24] VITALS: RESP 18
[2020-02-25] MEDS: morphine 4 mg/mL SDV 1 mL IM (15:24)
== END 2020-02-25 15:32 | disposition home or self-care (01) ==
PROVIDERS: Emergency Provider Physician Assistant; PCP Nurse Practitioner Family
DX: S32.111A Minimally displaced Zone I fracture of sacrum, initial encounter for closed fracture (principal); I10 Essential (primary) hypertension; F17.210 Nicotine dependence, cigarettes, uncomplicated; W19.XXXA Unspecified fall, initial encounter
CPT/HCPCS: 12345; 72131; 96372; 99281; 99283; J2270

== ENCOUNTER 2020-03-02 09:18 | Emergency (ER) | payer SELFPAY ==
[2020-03-02 09:21] VITALS: BMI 22.0
--- NOTE | 2020-03-02 09:26 | ED_ITS ---
HPI - Fall General: Chief Complaint: Fall Stated Complaint: fall Time Seen by Provider: 03/02/20 09:19 Source: patient Mode of arrival: wheelchair Limitations: no limitations History of Present Illness: HPI Narrative: Patient is a 44-year-old female who presents to ED today for evaluation following a fall. Patient was initially seen on 02/24 following a different fall. She was diagnosed with: Slightly comminuted fracture involving the S4 level extending to the S5 segment eccentric to the right. This extends into the right greater than left body of the sacrum. Patient tells me 2 days ago she was spraying medication on one of her dogs when the dog ran into her and tripped her causing her to fall yet again onto her lower back and tailbone. Patient states she has not set up any follow-up for her sacral fracture. No other injuries sustained during the fall. MD complaint: fall Fall from: standing Fall witnessed: yes, by family Place fall occurred: home Loss of consciousness: None Prolonged down time: no Context: tripped/slipped Location of injury: back Associated symptoms-after fall: Denies abdominal pain, chest pain, headache(s) or neck pain Review of Systems Const: Denies: fever(s) Card: Denies: chest pain Resp: Denies: dyspnea GI: Denies: abdominal pain : Denies: flank pain, difficulty voiding, dysuria, urinary frequency, urinary urgency or urinary hesitancy Musc: Reports: back pain; Denies: neck pain, extremity pain, extremity swelling, joint pain or joint swelling Neuro: Denies: headache(s), numbness in extremities, weakness in extremities or sensory changes [facility] ED PFSH: Medical History (Updated 03/02/20 @ 10:58 by SALLY Ceja) Fibromyalgia GERD (gastroesophageal reflux disease) HTN (hypertension) PSVT (paroxysmal supraventricular tachycardia) Surgical History History of hysterectomy with bilateral oophorectomy History of radiofrequency ablation (RFA) procedure for cardiac arrhythmia Hx of appendectomy S/P carpal tunnel release S/P tubal ligation Family History Mother Atrial fibrillation Hypertension Social History Smoking and tobacco status: current every day smoker cigarettes Packs smoked per day: 0.5 Years cigarettes smoked: 30 Alcohol intake: current Alcohol intake frequency: 0-2 Drinks per Day Lives independently: Yes Household members: spouse and family Marital status: service: No Current occupational status: unemployed History of recent travel: No Current gender identity: Female Female Reproductive History: Date of last menstrual period: 07/31/10 Physical Exam Const: COMMON NORMALS: no acute distress, patient oriented x3, no limitations and alert GENERAL APPEARANCE: cooperative ORIENTATION/CONSCIOUSNESS: Yes oriented to person, Yes oriented to place and Yes oriented to time Neck/C-Spine: COMMON NORMALS: full ROM CERVICAL SPINE: No Cervical spine tenderness Resp: COMMON NORMALS: normal respiratory effort and clear to auscultation bilaterally AUSCULTATION: clear to auscultation bilaterally Cardio: COMMON NORMALS: regular rate and regular rhythm RATE: regular rate RHYTHM: regular rhythm : COMMON NORMALS: Yes no CVA tenderness BLADDER/KIDNEY EXAM: Yes no CVA tenderness Back/Pelvis: COMMON NORMALS: no CVA tenderness THORACIC SPINE/UPPER BACK: Yes normal to inspection and No thoracic spinal tenderness LUMBAR SPINE/LOWER BACK: Yes lumbar spinal tenderness (swelling noted over lower back) Lumbar spinal tenderness location: L2, L3, L4 and L5 PELVIS: Yes Other pelvic findings (ecchymosis noted to L buttock) COCCYX: Other pelvic findings (ecchymosis noted to L buttock) Extremity: COMMON NORMALS: normal to inspection and full ROM GENERAL: Yes normal exam except as noted Neuro: COMMON NORMALS: patient oriented x3, moves all extremities, no focal motor deficits and no sensory deficits noted SENSORIUM/ORIENTATION: Yes alert, Yes oriented to person, Yes oriented to place and Yes oriented to time Skin: COMMON NORMALS: no rashes or lesions noted GENERAL SKIN EXAM: no rashes or lesions noted Course ED course: pt refused to lay on her back for XRs thus decision was made to repeat CT imaging as we can do these with her lying on her abdomen Vital Signs: Vital signs: Vital Signs Temperature 98.1 F 03/02/20 09:27 Pulse Rate 98 03/02/20 09:27 Respiratory Rate 18 03/02/20 09:27 Blood Pressure 127/82 03/02/20 09:27 Pulse Oximetry 95 03/02/20 09:27 MDM - Fall MDM Narrative: Medical decision making narrative: Patient's fracture has not changed following her most recent fall. She is not complaining of numbness, tingling, loss of sensation to her lower extremities, saddle anesthesia, urinary retention, bowel incontinence, or any other neurological deficit at this time. We will get her set up with the new spinal/orthopedic provider for further follow-up. Unfortunately patient is allergic to codeine, tramadol, oxycodone, hydrocodone so her pain will have to be treated conservatively. We did discuss primary care referring her to pain management if necessary. Imaging Data^: CT lumbar/pelvis: Radiologist's impression: [facility] [address] [place] [address] CT Scan Report Signed Patient: Denisa Orourke Unit #: [id number] : 1975 Age/Sex: 44 / F ADM Date: 03/02/20 Loc: ER Room/Bed: Attending Dr: Ordering Provider/Ordering MD: Missy Shah Date of Service: 03/02/20 Procedure(s): CT lumbar spine wo con* [id number] Accession Number(s): [id number] Report Number: [id number] WS: [id number] CT LUMBAR SPINE, CT sacrum and coccyx, noncontrast. HISTORY: fall; recent trauma TECHNIQUE: Contiguous 2.5 mm axial imaging are performed. Sagittal and coronal reformats are submitted and reviewed. All CT scans at [facility] use at least one of these dose optimization techniques: automated exposure control; mA and/or kV adjustment per patient size (includes targeted exams where dose is matched to clinical indication); or iterative reconstruction. IV contrast: None DLP: 2395.90 mGy-cm. COMPARISON: 02/25/2020 Increase in the normal lumbar lordosis. Grade 1 anterolisthesis of L5 on S1 by 6 mm. Chronic bilateral pars defects at L5. Mild central stenosis at the L5-S1 level. Mild disc bulging at L3-4, L4-5 and L5-S1. Mild foraminal narrowing at L5-S1. No new acute fractures. There is mild increase in the sacral curvature. Again noted are the minimally displaced fractures through the S4 segment without displacement. Fracture extends through the RIGHT L4 and L5 segments. CT/CT lumbar spine wo con* [id number] IMPRESSION: 1. No interval change in the acute S4 and S5 fractures, nondisplaced. 2. Grade 1 spondylolisthesis and spondylolisthesis L5. Dictated By: Kristin Molina DO Signed By: Kristin Molina DO Signed Date/Time: 03/02/20 1038 DD/ 1031 Discharge Plan Discharge Patient Disposition: Home Clinical Impression: Closed sacral fracture Qualifiers: Encounter type: initial encounter Fracture alignment: nondisplaced Condition: Stable Prescriptions: No Action omeprazole magnesium [Prilosec OTC] 20 mg Tablet,Delayed Release (Dr/Ec) 20 mg PO DAILY RF: 0 cetirizine [Zyrtec] 10 mg Tablet 10 mg PO DAILY RF: 0 B-complex with vitamin C [Super B Complex-Vitamin C] Tablet 1 tab PO DAILY RF: 0 Discharge Orders: Discharge Order (Routine); Ordered 03/02/20 Ordered By: Missy Shah Referrals: ASH Lopez, [employer] [Primary Care Provider] - Patient Instructions: Sacral Fracture (ED) Activity Restrictions/Additional Instructions: As discussed case management should contact you to set you up with the spinal orthopedic physician. You may use a doughnut cushion for support. As we discussed unfortunately you are allergic to several pain medication options. I recommend [id number] Tylenol and Motrin at this time. You may also apply ice to affected area. Return to the emergency department for numbness, tingling, loss of sensation to your legs, urinary retention, bowel incontinence, or any other concerns you may have. Coding Level of Care Code ED Vp [employer] for Apryl Salas 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
[2020-03-02 09:27] VITALS: BP 127/82; PULSE 98; RESP 18; TEMP 36.7; O2SAT 95
--- NOTE | 2020-03-02 10:01 | CT_ITS ---
WS: [id number] CT LUMBAR SPINE, CT sacrum and coccyx, noncontrast. HISTORY: fall; recent trauma TECHNIQUE: Contiguous 2.5 mm axial imaging are performed. Sagittal and coronal reformats are submitte d and reviewed. All CT scans at [facility] use at least one of these dose optimization te chniques: automated exposure control; mA and/or kV adjustment per patient size (includes targeted exa ms where dose is matched to clinical indication); or iterative reconstruction. IV contrast: None DLP: 2395.90 mGy-cm. COMPARISON: 02/25/2020 Increase in the normal lumbar lordosis. Grade 1 anterolisthesis of L5 on S1 by 6 mm. Chronic bilatera l pars defects at L5. Mild central stenosis at the L5-S1 level. Mild disc bulging at L3-4, L4-5 and L 5-S1. Mild foraminal narrowing at L5-S1. No new acute fractures. There is mild increase in the sacral curvature. Again noted are the minimally displaced fractures thr ough the S4 segment without displacement. Fracture extends through the RIGHT L4 and L5 segments. CT/CT lumbar spine wo con* [id number] IMPRESSION: 1. No interval change in the acute S4 and S5 fractures, nondisplaced. 2. Grade 1 spondylolisthesis and spondylolisthesis L5.
[2020-03-02 11:13] VITALS: RESP 18
[2020-03-02] MEDS: morphine 4 mg/mL SDV 1 mL IM (11:13)
[2020-03-02 11:25] VITALS: BP 150/101; PULSE 81; RESP 18; O2SAT 98
--- NOTE | 2020-03-03 10:07 | PC.SOCIAL ---
Addendum entered by Denisa Martin RN 03/03/20 10:09: Tried to call patient unable to reach patient but left message with return call number listed. Original Note: Sent referral to [facility] Neurosurgery clinic and asked radiology to upload images to cloud. They should be calling patient with appointment date and time.
--- NOTE | 2020-03-11 13:40 | DCPLANNER ---
Patient has a follow up appointment scheduled for Monday, March 30, 2020 at 9:[address] Muñiz. Clinic will call patient with appointment information.
--- NOTE | 2020-04-29 12:26 | DCPLANNER ---
flight control manager called [facility] to confirm if patient attended appointment scheduled for 04.20.20. flight control manager was told that appointment had been rescheduled.
== END 2020-03-02 11:17 | disposition home or self-care (01) ==
PROVIDERS: Emergency Provider Physician Assistant; PCP Nurse Practitioner Family
DX: S32.19XA Other fracture of sacrum, initial encounter for closed fracture (principal); W01.0XXA Fall on same level from slipping, tripping and stumbling without subsequent striking against object, initial encounter; I10 Essential (primary) hypertension; F17.210 Nicotine dependence, cigarettes, uncomplicated
CPT/HCPCS: 12345; 72131; 72192; 96372; 99281; 99283; J2270

== ENCOUNTER 2020-03-22 07:17 | Observation (INO) | payer SELFPAY ==
[2020-03-22] VITALS (12 sets, daily range): BP systolic 107–152; BP diastolic 62–98; PULSE 82–92; RESP 15–18; TEMP 36.4–36.9; O2SAT 96–100; BMI 22.8
--- NOTE | 2020-03-22 07:40 | USCV_ITS ---
Denisa Orourke Age: 44 Gender: F : 1975 Exam Date: 03/22/2020 08:25 Ordering Phys: Denisa Guerra Technologist: Haydee Hutton Exam Location: [facility] [place] Indication: Left calf pain HISTORY: Left lower extremity pain. PROCEDURES: Comparison: none available. Venous duplex imaging was performed in only the left lower extremity. The following venous structures were evaluated: common femoral vein, profunda vein, proximal portion of the greater saphenous vein, superficial femoral vein, and the popliteal vein. In addition, the posterior tibial and peroneal trunk were evaluated. Serial compression maneuvers and spectral Doppler flow evaluation were performed. FINDINGS: POSITIVE DEEP VEIN THROMBOSIS IN THE LEFT POPLITEAL VEIN, PERONEAL TRUNK AND DEEP CALF VEINS. CONCLUSIONS There is evidence of occlusive acute left lower extremity deep venous thrombosis beginning in the distal popliteal vein and extending into the posterior tibial veins and peroneal trunk. Cole Nelson (Electronically Signed) Final Date: 22 March 2020 08:52 S
--- NOTE | 2020-03-22 07:49 | ED_ITS ---
HPI - Extremity Problem General: Chief complaint: Extremity Problem,Nontraumatic Stated complaint: L LEG PAIN Time Seen by Provider: 03/22/20 07:23 History of Present Illness: HPI Narrative: 44-year-old female patient presents to the emergency department with her spouse. She reports past 3 to 4-day history of left lower calf pain, reports pain with ambulation. She reports recent fall, slipped out of a chair 2 days ago, denies right lower extremity pain or worsening back/sacral pain. History of S4 segment without displacement. Fracture extends through the RIGHT L4 and L5 segments. Reports upcoming appointment with a spinal specialist. Has not followed up with primary care since ER visit from 03/02/2020. She complains of nausea which occurs daily. States has taken her spouse's tizanidine past 1 to 2 weeks (listed as allergy on medication list but denies reaction), reports chronic fatigue past 2 weeks, states sleeping 10 to 12 hours. She denies headache neurological changes or difficulty with speech. Denies problems with thought process. She is currently vomiting upon exam. Reports taking Tylenol with pain along with tizanidine. She denies use of ice or warm compresses to her back for pain. MD Complaint: extremity pain (left) and extremity swelling (left) Onset (ago): day(s) (3-4) Pain Consistency: constant Location: left and lower extremity Severity scale (1-10): 7 Quality: dull and constant Relieving factors: rest Exacerbating factors: weight bearing and exertion Associated symptoms: Deny chest pain, fever(s), rash or short of breath Context: immobilization and recent illness (sacral fracture) Review of Systems General: Reports: 10 or more systems reviewed and unremarkable except in HPI and below Const: Denies: fever(s) Eyes: Denies: blurry vision or eye redness ENMT: Denies: throat pain, dental pain or disequilibrium Card: Denies: chest pain Resp: Denies: dyspnea, productive cough, non-productive cough or wheezing GI: Reports: nausea (dily); Denies: abdominal pain, vomiting, hematemesis, dysphagia or pain on defecation : Denies: difficulty voiding or dysuria Musc: Reports: back pain (lower - not changed per patient) and extremity swelling (LLE) Skin/Breast: Denies: rash or pruritus Neuro: Denies: headache(s), weakness in extremities or behavioral changes Maxime/Lymph: Denies: easy bruising PFSH ED PFSH: Medical History Fibromyalgia GERD (gastroesophageal reflux disease) HTN (hypertension) PSVT (paroxysmal supraventricular tachycardia) Surgical History History of hysterectomy with bilateral oophorectomy History of radiofrequency ablation (RFA) procedure for cardiac arrhythmia Hx of appendectomy S/P carpal tunnel release S/P tubal ligation Family History Mother Atrial fibrillation Hypertension Social History Smoking and tobacco status: current every day smoker cigarettes Packs smoked per day: 0.5 Years cigarettes smoked: 30 Alcohol intake: current Alcohol intake frequency: 0-2 Drinks per Day Lives independently: Yes Household members: spouse and family Marital status: service: No Current occupational status: unemployed History of recent travel: No Current gender identity: Female Female Reproductive History: Date of last menstrual period: 07/31/10 Physical Exam Const: COMMON NORMALS: patient oriented x3 and alert GENERAL APPEARANCE: cooperative and well hydrated HENMT: COMMON NORMALS: normocephalic, Normal external nose present and moist oral mucous membranes HEAD & SCALP: normocephalic NOSE: Normal external nose present Eye: COMMON NORMALS: Equal, round and reactive pupils present and EOMs intact bilaterally GENERAL EYE: appearance normal, both eyes and all related structures PUPIL: Yes Equal, round and reactive pupils present Neck/C-Spine: COMMON NORMALS: full ROM and no lymphadenopathy GENERAL: Yes normal visual inspection and Yes trachea midline CERVICAL SPINE: Yes cervical ROM normal Lymph: LYMPHATIC: no lymphadenopathy noted Chest: COMMONS NORMALS: normal inspection of the chest Resp: COMMON NORMALS: normal respiratory effort and clear to auscultation bilaterally AUSCULTATION: clear to auscultation bilaterally Cardio: COMMON NORMALS: regular rhythm, S1 normal heart sound present and S2 normal heart sound present RHYTHM: regular rhythm HEART SOUNDS: S1 normal heart sound present and S2 normal heart sound present GI: COMMON NORMALS: Soft to palpation and non-tender INSPECTION: Yes normal to inspection PALPATION: Yes Soft to palpation : COMMON NORMALS: Yes no CVA tenderness BLADDER/KIDNEY EXAM: Yes no CVA tenderness Back/Pelvis: COMMON NORMALS: no CVA tenderness and thoracic and lumbar spine normal to inspection LUMBAR SPINE/LOWER BACK: No straight leg raise positive right (RLE strength 5/5) and Yes straight leg raise positive left (LLE strength 3/5 - pain reproduced to LLE calf) SACRUM: tenderness positive midline Extremity: COMMON NORMALS: normal to inspection and capillary refill normal GENERAL: Yes normal exam except as noted, Yes calf tenderness (LLE), No cyanosis, No mottling, Yes weight-bearing difficulty and Yes monofilament exam performed (with normal findings - neg mono exam BLE) Neuro: COMMON NORMALS: patient oriented x3 and no focal motor deficits SENSORIUM/ORIENTATION: Yes alert Psych: COMMON NORMALS: mental status grossly normal, Normal thought process present and cooperative ACTIVITY/MOTOR BEHAVIOR: Yes appropriate eye contact THOUGHT PROCESS: Normal thought process present Skin: COMMON NORMALS: no rashes or lesions noted and turgor normal GENERAL SKIN EXAM: no rashes or lesions noted and turgor normal Course ED course: Wells Criteria 2 - moderate risk - US venous doppler LLE ordered Case discussed with Dr. Monreal, patient meets criteria for admission, transfer of care to Dr. Monreal. Hospitalist Dr. Ibanez, consulted regarding admission, agrees to come see patient in the emergency department. Vital Signs: Vital signs: Vital Signs Temperature 97.8 F 03/22/20 13:20 Pulse Rate 83 03/22/20 13:20 Respiratory Rate 18 03/22/20 13:20 Blood Pressure 130/96 03/22/20 13:20 Pulse Oximetry 98 03/22/20 13:20 MDM - Extremity (Nontraumatic) Lab Data: Labs: Lab Results 03/22/20 03/22/20 03/22/20 Range/Units 07:55 08:44 08:44 WBC 3.2 L (4.0-10.0) 10^3/ uL RBC 3.94 L (4.1-5.3) 10^6/u L Hgb 14.3 (11.5-15.3) g/dL Hct 43.5 (37.0-47.0) % MCV 110.4 H (81-99) fL MCH 36.3 H (28.0-34.0) pg MCHC 32.9 (30.0-36.0) g/dL RDW 13.6 (12.1-15.1) % Plt Count 99 L (130-400) 10^3/c mm MPV 11.2 H (7.4-10.4) fL Neut % (Auto) 54.2 % Lymph % (Auto) 34.2 % Anderson % (Auto) 6.6 % Eos % (Auto) 3.4 % Baso % (Auto) 1.3 % Neut # (Auto) 1.73 L (1.8-7.7) 10^3/u L Lymph # (Auto) 1.1 (0.8-4.8) 10^3/u L Anderson # (Auto) 0.2 (0.2-0.9) 10^3/u L Eos # (Auto) 0.1 (0.0-0.8) 10^3/u L Baso # (Auto) 0.0 (0.0-0.1) 10^3/u L Nucleated RBC % (a uto) 0 % Nucleated RBCs # 0.0 /100WBC PT (12.1-14.9) SECO NDS INR (0.8-1.2) Sodium 136 (136-145) mmol/L Potassium 3.9 (3.5-5.1) mmol/L Chloride 99 (98-107) mmol/L Carbon Dioxide 27 (22-29) mmol/L Anion Gap 13.9 (5-19) BUN 6 (6-20) mg/dL Creatinine 0.9 (0.5-0.9) mg/dL GFR Calculation 67.7 L (90-130) mL/min Glucose 92 (65-115) mg/dL Calculated Osmolal ity 277 L (285-295) mOsm/k g Calcium 9.5 (8.5-10.5) mg/dL Total Bilirubin 1.1 (0.15-1.2) mg/dL AST 62 H (0-32) U/L ALT 28 (0-33) U/L Alkaline Phosphata se 187 H (35-105) IU/L Total Protein 7.2 (6.6-8.7) g/dL Albumin 3.6 (3.5-5.2) g/dL Globulin 3.6 (1.3-4.6) g/dL Lipase 10 L (13-60) U/L TSH 2.31 (0.27-4.20) uIU/ mL Urine Color Dark yellow (Yellow) Urine Appearance Cloudy (CLEAR) Urine pH 7 (5-7) Ur Specific Gravit y 1.005 (1.005-1.030) Urine Protein Trace (Negative) Urine Glucose (UA) Norm (Normal) Urine Ketones Negative (Negative) Urine Blood 2+ H (Negative) Urine Nitrate Positive H (Negative) Urine Bilirubin 1+ H (NEGATIVE) Urine Urobilinogen 8 H (Negative) mg/dL Ur Leukocyte Rachel ase 2+ H (Negative) Urine RBC 15-25 H (0-2) /hpf Urine WBC 40-55 H (0-5) /hpf Ur Squamous Epith Cells 5-10 H (0-5) Amorphous Sediment Not Reportable Urine Bacteria 4+ H (NONE) Urine Mucus 1+ SARS-CoV-2 Ag (Rap id) (Negative) 03/22/20 03/22/20 Range/Units 08:44 09:55 WBC (4.0-10.0) 10^3/ uL RBC (4.1-5.3) 10^6/u L Hgb (11.5-15.3) g/dL Hct (37.0-47.0) % MCV (81-99) fL MCH (28.0-34.0) pg MCHC (30.0-36.0) g/dL RDW (12.1-15.1) % Plt Count (130-400) 10^3/c mm MPV (7.4-10.4) fL Neut % (Auto) % Lymph % (Auto) % Anderson % (Auto) % Eos % (Auto) % Baso % (Auto) % Neut # (Auto) (1.8-7.7) 10^3/u L Lymph # (Auto) (0.8-4.8) 10^3/u L Anderson # (Auto) (0.2-0.9) 10^3/u L Eos # (Auto) (0.0-0.8) 10^3/u L Baso # (Auto) (0.0-0.1) 10^3/u L Nucleated RBC % (a uto) % Nucleated RBCs # /100WBC PT 14.00 (12.1-14.9) SECO NDS INR 1.04 (0.8-1.2) Sodium (136-145) mmol/L Potassium (3.5-5.1) mmol/L Chloride (98-107) mmol/L Carbon Dioxide (22-29) mmol/L Anion Gap (5-19) BUN (6-20) mg/dL Creatinine (0.5-0.9) mg/dL GFR Calculation (90-130) mL/min Glucose (65-115) mg/dL Calculated Osmolal ity (285-295) mOsm/k g Calcium (8.5-10.5) mg/dL Total Bilirubin (0.15-1.2) mg/dL AST (0-32) U/L ALT (0-33) U/L Alkaline Phosphata se (35-105) IU/L Total Protein (6.6-8.7) g/dL Albumin (3.5-5.2) g/dL Globulin (1.3-4.6) g/dL Lipase (13-60) U/L TSH (0.27-4.20) uIU/ mL Urine Color (Yellow) Urine Appearance (CLEAR) Urine pH (5-7) Ur Specific Gravit y (1.005-1.030) Urine Protein (Negative) Urine Glucose (UA) (Normal) Urine Ketones (Negative) Urine Blood (Negative) Urine Nitrate (Negative) Urine Bilirubin (NEGATIVE) Urine Urobilinogen (Negative) mg/dL Ur Leukocyte Rachel ase (Negative) Urine RBC (0-2) /hpf Urine WBC (0-5) /hpf Ur Squamous Epith Cells (0-5) Amorphous Sediment Urine Bacteria (NONE) Urine Mucus SARS-CoV-2 Ag (Rap id) Negative (Negative) Imaging Data^: US: Radiologist's impression: Ultrasound Report Signed Patient: Denisa Orourke #: [id number] : 1975Acct#:[id number] Age/Sex: 44 / FADM Date: 03/22/20 Loc: ERRoom/Bed: Attending Dr: Ordering Provider/Ordering MD: Denisa Guerra Date of Service: 03/22/20 Procedure(s): [place] [address] Accession Number(s): [id number] Report Number: [id number] Denisa Orourke Age: 44 Gender: F : 1975 Exam Date: 03/22/2020 08:25 Ordering Phys: Denisa Guerra Technologist: Haydee Hutton Exam Location: [facility] – [place] Indication: Left calf pain HISTORY: Left lower extremity pain. PROCEDURES: Comparison: none available. Venous duplex imaging was performed in only the left lower extremity. The following venous structures were evaluated: common femoral vein, profunda vein, proximal portion of the greater saphenous vein, superficial femoral vein, and the popliteal vein. In addition, the posterior tibial and peroneal trunk were evaluated. Serial compression maneuvers and spectral Doppler flow evaluation were performed. FINDINGS: POSITIVE DEEP VEIN THROMBOSIS IN THE LEFT POPLITEAL VEIN, PERONEAL TRUNK AND DEEP CALF VEINS. CONCLUSIONS There is evidence of occlusive acute left lower extremity deep venous thrombosis beginning in the distal popliteal vein and extending into the posterior tibial veins and peroneal trunk. Cole Nelson (Electronically Signed) Final Date: 22 March 2020 08:52 Discharge Plan Discharge Patient Disposition: Admitted As Inpatient Admit Provider: Franck Ibanez Discharge Date/Time: 03/22/20 12:47 Coding Level of Care Code ED Resource Forester for Chg Fwd 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
[2020-03-22] MEDS: ondansetron 2 mg/ML SDV 2 mL 4 MG IVP ×3 (08:07→19:31)
--- NOTE | 2020-03-22 08:08 | PC.NURSE ---
Unable to collect blood with IV start. 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 Ultrasound at bedside. Will collect blood after ultrasound
[2020-03-22 08:25] LABS: Add Urine Microscopic? YES; Bilirubin Urine 1+ (NEGATIVE); Blood Urine 2+ (Negative); Glucose Urine UA Norm (Normal); Ketones Urine Negative (Negative); Leukocyte Esterase Urine 2+ (Negative); Nitrate Urine Positive (Negative); Protein Urine Trace (Negative); Specific Gravity, Urine 1.005 (1.005-1.030); Urine Appearance Cloudy (CLEAR); Urine Color Dark Yellow (Yellow); Urobilinogen Urine 8 mg/dL (Negative); pH Urine 7 (5-7)
[2020-03-22 08:30] LABS: Bacteria Urine 4+; RBC Urine 15-25 /hpf (0-2); WBC Urine 40-55 /hpf (0-5)
[2020-03-22 08:31] LABS: Add Urine Culture? Yes; Mucus Urine 1+
[2020-03-22 08:54] LABS: Basophils % 1.3 %; Eosinophils # 0.1 10^3/uL (0.0-0.8); Eosinophils % 3.4 %; Hematocrit 43.5 % (37.0-47.0); Hemoglobin 14.3 g/dL (11.5-15.3); Lymphocytes # 1.1 10^3/uL (0.8-4.8); Lymphocytes % 34.2 %; Mean Corpuscular HGB Conc 32.9 g/dL (30.0-36.0); Mean Corpuscular Hemoglobin 36.3 pg (28.0-34.0); Mean Corpuscular Volume 110.4 fL (81-99); Mean Platelet Volume 11.2 fL (7.4-10.4); Monocytes # 0.2 10^3/uL (0.2-0.9); Monocytes % 6.6 %; Neutrophils # 1.73 10^3/uL (1.8-7.7); Neutrophils % 54.2 %; Nucleated Red Blood Cells % 0 %; Platelet Count 99 10^3/cmm (130-400); Red Blood Count 3.94 10^6/uL (4.1-5.3); Red Cell Distribution Width 13.6 % (12.1-15.1); White Blood Count 3.2 10^3/uL (4.0-10.0)
[2020-03-22 09:05] LABS: INR 1.04 (0.8-1.2)
[2020-03-22 09:22] LABS: Alanine Aminotransferase 28 U/L (0-33); Albumin Level 3.6 g/dL (3.5-5.2); Alkaline Phosphatase 187 IU/L (35-105); Anion Gap 13.9 (5-19); Aspartate Amino Transferase 62 U/L (0-32); Blood Urea Nitrogen 6 mg/dL (6-20); Calcium 9.5 mg/dL (8.5-10.5); Carbon Dioxide 27 mmol/L (22-29); Chloride 99 mmol/L (98-107); Globulin 3.6 g/dL (1.3-4.6); Glomerular Filtration Rate 67.7 mL/min (90-130); Glucose 92 mg/dL (65-115); Lipase 10 U/L (13-60); Osmolality Calculated 277 mOsm/kg (285-295); Potassium 3.9 mmol/L (3.5-5.1); Sodium 136 mmol/L (136-145); Thyroid Stimulating Hormone 2.31 uIU/mL (0.27-4.20); Total Bilirubin 1.1 mg/dL (0.15-1.2); Total Protein 7.2 g/dL (6.6-8.7)
[2020-03-22] MEDS: morphine 4 mg/mL SDV 1 mL IVP ×2 (09:42→12:09)
[2020-03-22] MEDS: enoxaparin 80 mg/0.8 mL Syringe 70 MG SUBCUT ×2 (10:00→21:46)
[2020-03-22 10:30] LABS: SARS Covid-2 Antigen Negative (Negative)
--- NOTE | 2020-03-22 11:56 | ECG_ITS ---
[facility] Test Date: 2020-03-22 Pat Name: Denisa Orourke Department: Room: 254 Gender: Female Paid Search Specialist: : 1975 Requested By: Denisa Jiménez Order Number: [id number] Valerie MD: Troy Garcia M.D. Measurements Intervals Col[place] Rate: 83 P: 34 KS: 168 QRS: -20 QRSD: 85 T: 53 QT: 385 QTc: 454 Interpretive Statements SINUS RHYTHM LOW QRS VOLTAGE IN PRECORDIAL LEADS [QRS DEFLECTION < 1.0 mV IN CHEST LEADS] POSSIBLE RIGHT VENTRICULAR CONDUCTION DELAY [RSR (QR) IN V1/V2] Compared to ECG 01/27/2020 10:28:00 No significant changes Electronically Signed On 03-23-2020 12:07:27 CDT by Troy Garcia M.D. [id number]
[2020-03-22] MEDS: cefTRIAXone 1,000 MG in sodium chloride 0.9% (plus) 50 ML 100 MG IV (12:10)
--- NOTE | 2020-03-22 12:27 | P.HP_ITS ---
Providers/Chief Complaint Primary Care Provider: ORDERICK Gonzales Chief Complaint: L LEG PAIN History of Present Illness Denisa Orourke is a 44 year old female that presents to the hospital with complaints of left calf pain, swelling. She states it is been going on perhaps the last 3 to 4 days. She denies any shortness of breath, hemoptysis, significant cough other than her norm from smoking. She has had no fevers. She denies any COVID exposure. She did have COVID testing today, that was negative. She has had some stomach upset lately. Occasionally has vomiting every 2 or 3 days. She was evaluated in the emergency department and found to have a left lower extremity DVT. No history of blood in stool or black or tarry stools. She has had low back pain lately secondary to tailbone fracture which she reports may have been chronic but certainly worse since slipping and falling 1 month ago. Less mobile secondary to this. No urinary incontinence. Review of Systems General: Reports: 10 or more systems reviewed and unremarkable except in HPI and below Const: Denies: fever(s) or chills Eyes: Denies: change in vision ENMT: Denies: throat pain Card: Denies: chest pain Resp: Denies: dyspnea GI: Reports: nausea : Denies: flank pain Musc: Reports: back pain (History of fall 1 month ago) Skin/Breast: Denies: rash Neuro: Denies: headache(s) Psych: Denies: anxiety Endo: Denies: polyuria Maxime/Lymph: Denies: easy bruising All/Imm: Denies: urticaria Medications/Allergies Home Medications Medication Instructions Recorded Confirmed Last Taken Type B-complex with vitamin C [Super B 1 tab PO DAILY 01/04/20 03/22/20 03/01/20 History Complex-Vitamin C] cetirizine [Zyrtec] 10 mg PO DAILY 01/04/20 03/22/20 03/01/20 History omeprazole magnesium [Prilosec OTC] 20 mg PO DAILY 02/25/20 03/22/20 03/21/20 History diphenhydramine HCl [Benadryl 25 mg PO Q6H PRN 03/22/20 03/22/20 Unknown History Allergy] Allergies Allergy/AdvReac Type Severity Reaction Status Date / Time acetaminophen [From Percocet] Allergy ALGY-Swell Verified 03/02/20 09:33 Lip/Tongue/Throat azithromycin [From Zithromax] Allergy ADR-Itching Verified 03/02/20 09:30 ciprofloxacin [From Cipro] Allergy ALGY-Rash Verified 03/02/20 09:30 clindamycin [From Cleocin] Allergy ALGY-Rash Verified 03/02/20 09:30 codeine Allergy ADR-Itching Verified 03/02/20 09:30 cyclobenzaprine Allergy ADR-Swelling Verified 03/02/20 09:30 [From Flexeril] of the Eye Egg Derived Allergy ADR-Vomitin Verified 03/02/20 09:30 g hydrocodone Allergy ALGY-Swell Verified 03/02/20 09:30 Lip/Tongue/Throat loratadine [From Claritin] Allergy Unknown Verified 03/02/20 09:30 oxycodone [From Percocet] Allergy ALGY-Swell Verified 03/02/20 09:33 Lip/Tongue/Throat tizanidine Allergy ADR-Itching Verified 03/02/20 09:30 tramadol Allergy ALGY-Rash Verified 03/02/20 09:30 PFSH Acute PFSH: Medical History Fibromyalgia GERD (gastroesophageal reflux disease) HTN (hypertension) PSVT (paroxysmal supraventricular tachycardia) Surgical History History of hysterectomy with bilateral oophorectomy History of radiofrequency ablation (RFA) procedure for cardiac arrhythmia Hx of appendectomy S/P carpal tunnel release S/P tubal ligation Family History Mother Atrial fibrillation Hypertension Social History Smoking and tobacco status: current every day smoker cigarettes Packs smoked per day: 0.5 Years cigarettes smoked: 30 Alcohol intake: current Alcohol intake frequency: 0-2 Drinks per Day Lives independently: Yes Household members: spouse and family Marital status: service: No Current occupational status: unemployed History of recent travel: No Current gender identity: Female Female Reproductive History: Date of last menstrual period: 07/31/10 Vitals/I&O/Wt Last Vital Signs Temp 97.6 F 03/22/20 07:23 Pulse 92 03/22/20 07:23 Resp 15 03/22/20 12:09 BP 152/98 03/22/20 07:23 Pulse Ox 98 03/22/20 07:23 Weight last 48 hrs Weight 68.039 kg Physical Exam Narrative: EXAM NARRATIVE: General exam is a white female, complaining of low back pain and left calf pain. HEENT: Pupils equally round. Oropharynx clear. Tongue midline. Neck is supple no lymphadenopathy or thyromegaly Cardiovascular regular rate and rhythm without murmur, no S3 or S4 Lungs clear no wheezing or crackles Abdomen is soft. No tenderness currently. No obvious organomegaly. was deferred Extremities no cyanosis clubbing. Slight edema left calf and certainly tender to palpation. No erythema. Distal pulses intact Skin no rash Neuro no focal deficits. No decreased sensation lower extremities Data : 03/22/20 08:44 03/22/20 08:44 Other data: INR is normal AST elevated at 62, alk phos 187, lipase 10, urinalysis positive nitrates, 40-55 whites, 15-25 reds and 5-10 squamous Venous duplex demonstrates occlusive left lower extremity DVT popliteal to peritoneal trunk Previous lumbar CT done March 02 demonstrated no change in S4 and S5 fractures Rapid COVID negative A&P Assessment and plan (1) DVT (deep vein thrombosis) in : Lovenox 70 mg subcutaneously every 12 hours Considering smoking history, will check CTA of chest. No evidence of pulmonary embolism currently other than mild cough but would be good to exclude lung canc er as well. Status: Acute (2) Transaminitis: Check hepatitis panel, HIV. Patient denies significant alcohol intake currently but she has drank heavily in the past and admits to such. She may have underlying cirrhosis. Check hepatic ultrasound Status: Acute (3) Back pain: Secondary to sacral/S4-S5 fractures. Therapy consultation Pain control Status: Acute (4) Leukopenia: Unknown etiology. Certainly could be alcohol induced toxicity. Last a lcoholic beverage was 2 ounces of whiskey 3 days ago. Status: Acute (5) Thrombocytopenia: See above. Recheck in the morning Status: Acute (6) Macrocytosis: Check B12 and folate. Concerned this may be secondary to alcoholism. Thiamine 100 mg IM and thiamine p.o. daily Status: Acute (7) UTI (urinary tract infection): Rocephin 1 g IV every 24 hours Urine culture Status: Acute Additional A&P Information History of significant alcohol intake from what the patient relates was approximately 6 months to a year ago. Patient is currently denying intake other than 0-1 drinks per day, with last alcohol intake 2 ounces of whiskey 3 days ago GERD, some vague abdominal complaints. Continue Protonix 40 mg twice daily History of hypertension History of SVT status post ablation Tobacco dependency. 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
--- NOTE | 2020-03-22 13:20 | CTR_ITS ---
PROCEDURE INFORMATION: Exam: CT Angiography Chest With Contrast Exam date and time: 03/22/2020 4:36 PM Age: 44 years old Clinical indication: Abnormal findings; Other: Abn doppler; Patient HX: Dvt TECHNIQUE: Imaging protocol: Computed tomographic angiography of the chest with intravenous contrast. 3D rendering (Not supervised by radiologist): MIP and/or 3D reconstructed images were created by the technologist. Radiation optimization: All CT scans at this facility use at least one of these dose optimization techniques: automated exposure control; mA and/or kV adjustment per patient size (includes targeted exams where dose is matched to clinical indication); or iterative reconstruction. Contrast material: OMNI 350; Contrast volume: 95 ml; Contrast route: INTRAVENOUS (IV); COMPARISON: CR XR ribs LT mn 3V w CXR1V [id number] 02/03/2020 5:40 PM RADIATION DOSE METRICS: Total DLP (mGy-cm): 455.24 FINDINGS: Pulmonary arteries: Examination is positive for pulmonary embolism/pulmonary arterial thrombus. Nonocclusive string thrombus begins in the distal left main pulmonary arteries extending into the bilateral lower lobes segmental vessels, proximal left upper lobe segmental, and proximal lingula segmental vessels without occlusion. Nonocclusive string thrombus begins in the distal right main pulmonary artery and extends into the proximal segmental vessels of the right upper lobe, right middle lobe, and right lower lobe. No evidence for complete pulmonary arterial occlusion. Again no visible evidence of complete occlusion of the pulmonary arterial vessels involved. Aorta: The thoracic aorta is nonaneurysmal. No visible intimal flap or dissection. Minimal arterial sclerotic disease. Lungs: No visible active interstitial or alveolar airspace disease. No visible pulmonary infarction. Airway intact. Pleural space: Unremarkable. No pneumothorax. No pleural effusion. Heart: No evidence for right ventricular strain. RV/LV ratio 0.8. Lymph nodes: No visible evidence of active middle mediastinal or hilar lymphadenopathy. Liver: Diffuse fatty infiltration of the liver. Hepatization of the gallbladder. Bones/joints: No visible active osseous pathology. Soft tissues: Unremarkable. CT/CT angio chest PE protcl [id number] IMPRESSION: 1. Examination is positive for pulmonary embolism/pulmonary arterial thrombus as detailed in text above. 2. No evidence for pulmonary infarction. 3. No evidence for right ventricular strain within RV/LV ratio 0.8. 4. Diffuse fatty infiltration of the liver. 5. Hepatization of the gallbladder. Radiation Dose CTDIVOL = (mGy): DLP = 455.24 (mGy-cm)
--- NOTE | 2020-03-22 13:20 | US_ITS ---
WS: [id number] ULTRASOUND ABDOMEN LIMITED CLINICAL INFORMATION: abnormal LFT's, gallbladder and liver US COMPARISON: None. FINDINGS: Liver Size: Normal. Craniocaudal length: 12.6 cm. Echogenicity: Coarse fatty infiltration Surface nodularity: None. Mass (size and location): None. Bile ducts Intrahepatic ducts: Normal. Common bile duct diameter: 0.3 cm. Gallbladder Normal. Gallstones: None. Gallbladder sludge: None. Gallbladder wall thickening: None. Pericholecystic fluid: None. Sonographic Borrego sign: Absent. Pancreas Normal as visualized. Right kidney: Normal. Hydronephrosis: None. Size: 9.7 cm x 4.7 cm x 3.6 cm. Abdominal aorta and IVC Visualized portions are normal. Ascites: None. US/US gall bladder [id number] IMPRESSION: 1. Coarse with fatty infiltration. 2. Normal gallbladder. 3. No hydronephrosis in right kidney.
[2020-03-22] MEDS: pantoprazole DR 40 mg Tablet PO (13:44)
[2020-03-22] MEDS: D5-NS 0.45% + KCL 20 mEq 20 MEQ/1,000 ML BAG 75 MEQ IV (13:44)
[2020-03-22 14:31] LABS: Vitamin B12 369 pg/mL (232-1245)
[2020-03-22] MEDS: methocarbamol 500 mg Tablet PO (14:37)
[2020-03-22 15:23] LABS: Folate Level 2.4 ng/mL (4.8-37.3)
[2020-03-22 15:25] LABS: HIV 1 & 2 Antibody Non-Reactive (Non-Reactiv); HIV 1 & 2 Antigen Non-Reactive (Non-Reactiv)
[2020-03-22 15:53] LABS: Hepatitis A Antibody IgM Non-Reactive (Nonreactive); Hepatitis B Core IgM Non-Reactive (Nonreactive); Hepatitis B Surface Antigen Non-Reactive (Nonreactive); Hepatitis C Virus Antibody Non-Reactive (Nonreactive)
[2020-03-22] MEDS: morphine 4 mg/mL SDV 1 mL 2 MG IVP ×2 (16:50→20:02)
[2020-03-22] MEDS: iohexol 350 mg/mL 100 mL Btl IV (17:07)
[2020-03-23] VITALS (11 sets, daily range): BP systolic 105–117; BP diastolic 62–83; PULSE 73–86; RESP 18–20; TEMP 36.5–37.2; O2SAT 96–98
[2020-03-23] MEDS: morphine 4 mg/mL SDV 1 mL 2 MG IVP ×4 (01:22→21:42)
[2020-03-23] MEDS: trazodone 50 mg Tablet PO (01:50)
[2020-03-23] MEDS: D5-NS 0.45% + KCL 20 mEq 20 MEQ/1,000 ML BAG 75 MEQ IV ×2 (04:03→18:31)
[2020-03-23 04:32] LABS: Basophils % 1.5 %; Eosinophils # 0.1 10^3/uL (0.0-0.8); Eosinophils % 5.2 %; Hematocrit 39.1 % (37.0-47.0); Hemoglobin 12.8 g/dL (11.5-15.3); Lymphocytes # 1.1 10^3/uL (0.8-4.8); Lymphocytes % 42.4 %; Mean Corpuscular HGB Conc 32.7 g/dL (30.0-36.0); Mean Corpuscular Hemoglobin 36.6 pg (28.0-34.0); Mean Corpuscular Volume 111.7 fL (81-99); Mean Platelet Volume 11.4 fL (7.4-10.4); Monocytes # 0.2 10^3/uL (0.2-0.9); Monocytes % 6.7 %; Neutrophils # 1.19 10^3/uL (1.8-7.7); Neutrophils % 44.2 %; Nucleated Red Blood Cells % 0 %; Platelet Count 79 10^3/cmm (130-400); Red Cell Distribution Width 13.3 % (12.1-15.1); White Blood Count 2.7 10^3/uL (4.0-10.0)
[2020-03-23 04:51] LABS: Alanine Aminotransferase 21 U/L (0-33); Alkaline Phosphatase 147 IU/L (35-105); Anion Gap 11.8 (5-19); Aspartate Amino Transferase 37 U/L (0-32); Blood Urea Nitrogen 5 mg/dL (6-20); Calcium 8.9 mg/dL (8.5-10.5); Carbon Dioxide 25 mmol/L (22-29); Chloride 100 mmol/L (98-107); Globulin 3.1 g/dL (1.3-4.6); Glomerular Filtration Rate 77.6 mL/min (90-130); Glucose 83 mg/dL (65-115); Magnesium 1.8 mg/dL (1.7-2.3); Osmolality Calculated 271 mOsm/kg (285-295); Potassium 3.8 mmol/L (3.5-5.1); Sodium 133 mmol/L (136-145); Total Bilirubin 0.8 mg/dL (0.15-1.2); Total Protein 6.1 g/dL (6.6-8.7)
--- NOTE | 2020-03-23 06:00 | USCV_ITS ---
Denisa Orourke Age: 44 Gender: F : 1975 Exam Date: 03/23/2020 06:25 Ordering Phys: Franck Ibanez MD Technologist: Ramón Copeland Exam Location: [facility] – [place] Indication: PE BP: 107 / 62 HR: Rhythm: Sinus Technical Quality: Good MEASUREMENTS (Male / Female) Normal Values 2D ECHO LV Diastolic Diameter PLAX 4.3 cm 4.2 - 5.9 / 3.9 - 5.3 cm LV Systolic Diameter PLAX 2.8 cm IVS Diastolic Thickness 0.9 cm 0.6 - 1.0 / 0.6 - 0.9 cm IVS Systolic Thickness 1.1 cm LVPW Diastolic Thickness 0.8 cm 0.6 - 1.0 / 0.6 - 0.9 cm LVPW Systolic Thickness 1.3 cm LVOT Diameter 1.9 cm LV Ejection Fraction 2D Teich 65.5 % LV Ejection Fraction MOD 2C 62.0 % LV Ejection Fraction 2C AL 61.5 % LA Diameter 2.9 cm Aorta at Sinotubular Diameter 1.0 cm M-MODE LV Diastolic Diameter MM 4.6 cm 4.2 - 5.9 / 3.9 - 5.3 cm LV Systolic Diameter MM 4.5 cm LV Ejection Fraction MM Teich 6.0 % IVS Diastolic Thickness MM 1.0 cm 0.6 - 1.0 / 0.6 - 0.9 cm IVS Systolic Thickness MM 1.3 cm LVPW Diastolic Thickness MM 0.8 cm 0.6 - 1.0 / 0.6 - 0.9 cm LVPW Systolic Thickness MM 1.4 cm RV Diastolic Diameter MM 1.4 cm Aortic Annulus Diameter 3.0 cm LA Ao Ratio MM 1.0 MV E Point Septal Separation 0.8 cm DOPPLER AV Peak Velocity 139.0 cm/s LVOT Peak Velocity 105.0 cm/s AV Area Cont Eq vti 3.2 cm squared AV Area Cont Eq pk 2.2 cm squared MV Area PHT 5.0 cm squared Mitral E to A Ratio 0.9 MV E' Velocity 12.0 cm/s Mitral E to MV E' Ratio 5.6 Mitral E to LV E' Lateral Ratio 5.2 Mitral E to LV E' Septal Ratio 6.2 TR Peak Velocity 170.0 cm/s TR Peak Gradient 11.6 mmHg TV Peak E Velocity 103.0 cm/s Right Atrial Pressure 3.0 mmHg Pulmonary Artery Systolic Pressu 14.6 mmHg PV Peak Velocity 90.0 cm/s FINDINGS Left Ventricle Normal left ventricular cavity size. Normal left ventricular systolic function. No regional wall motion abnormalities. Left ventricular ejection fraction is estimated at 60 %. Grade I/IV diastolic dysfunction (abnormal relaxation filling pattern), normal to mildly elevated filling pressures. Right Ventricle The right ventricle is normal in size and function. Right Atrium The right atrium is normal in size. Left Atrium The left atrium is normal in size. Mitral Valve Structurally normal mitral valve without significant stenosis or prolapse. There is no mitral regurgitation. Aortic Valve Moderate aortic valve calcification. No aortic valve stenosis. Trace aortic valve regurgitation. Tricuspid Valve Trace to mild tricuspid valve regurgitation. Pulmonic Valve Structurally normal pulmonic valve without significant stenosis. There is no pulmonic regurgitation. Pericardium Normal pericardium without effusion. Aorta Normal ascending aorta dimension. CONCLUSIONS 1-Normal left ventricular cavity size. Normal left ventricular systolic function. No regional wall motion abnormalities. Left ventricular ejection fraction is estimated at 60 %. Grade I/IV diastolic dysfunction (abnormal relaxation filling pattern), normal to mildly elevated filling pressures. 2-Structurally normal mitral valve without significant stenosis or prolapse. There is no mitral regurgitation. 3-Moderate aortic valve calcification. No aortic valve stenosis. Trace aortic valve regurgitation. 4-Trace to mild tricuspid valve regurgitation. 5-There is no pericardial effusion. 6-Pulmonary artery systolic pressure is within normal limits. 7-No significant change since the prior echocardiogram study of 06/22/2015. Masha Pablo MD (Electronically Signed) Final Date: 23 March 2020 20:13 S
[2020-03-23] MEDS: ondansetron 2 mg/ML SDV 2 mL 4 MG IVP ×2 (09:22→18:31)
[2020-03-23] MEDS: thiamine 100 mg Tablet PO (09:24)
[2020-03-23] MEDS: enoxaparin 80 mg/0.8 mL Syringe 70 MG SUBCUT (09:24)
[2020-03-23] MEDS: folic acid 1 mg Tablet PO (09:24)
--- NOTE | 2020-03-23 11:52 | PC.CHAP ---
Pastoral Care Encounter/Spiritual Assessment Type of Contact [] Declined supervisor costuming visit [] Patient/Family/Request visit [] Outpatient visit [] Follow-up visit [] Physician referral [] Code/Alert [x] Routine visit [] Staff referral [] Actively dying [] Patient sleeping [] Family support [] [] Out of room [] Palliative care [] [] Receiving care in room [] Pre-surgical visit [] Trauma [] Long length of stay [] ICU visit [] Other: Relational/Emotional Strength [x] Patient feels connected with others/family/visitors/staff [] Distress [] Loneliness/isolation [] Abandonment Spirituality of Patient [x] Person of Lisa [] Attends Yazdanism of their Lisa [x] Believes in Prayer [] Reads Bible or Religion materials [] There are Spiritual issues to be addressed Rehabilitation Psychologist Interventions [x] Prayer [x] Active listening [x] Non-anxious presence [x] Spiritual/emotional support [] Crisis/trauma care [] Spiritual counseling [] Bereavement support [] Provided bereavement packet [] Provided Bible/devotional materials [] Provided toy/stuffed animal, coloring book to patient or family member [] Provided Communion [] Anointing/[place] [] Salvation [x] Completed spiritual assessment [] Other: Impact on Illness or Injury [] Angry [] Fearful [] Anxious [] Often cries [] Exhaustion [] Unable to work [] Unable to attend hindu [] Unable to walk/stand [] Unable to read [] Unable to drive [] Unable to eat/drink [] Unable to sleep [] Unable to be with family [] Patient intubated [] Other: Summary Chaplains Mynor and Leesa Overton prayed with patient. Time spent with patient 8 minutes.
[2020-03-23] MEDS: cefTRIAXone 1,000 MG in sodium chloride 0.9% (plus) 50 ML 100 MG IV ×2 (13:06→13:11)
[2020-03-23] MEDS: sodium chloride 0.9% (plus) 50 ML 100 ML (13:16)
[2020-03-23] MEDS: magnesium sulfate premix 2 GM/50 ML PIGGYBACK IV (13:54)
--- NOTE | 2020-03-23 14:37 | XRR_ITS ---
PROCEDURE INFORMATION: Exam: XR Left Ankle Exam date and time: 03/23/2020 3:16 PM Age: 44 years old Clinical indication: Pain and injury or trauma; Fall; Initial encounter; Blunt trauma; Ankle; Left; Injury date: 3-4 weeks ago; Patient HX: Slipped off wet step; Additional info: Pain after fall TECHNIQUE: Imaging protocol: XR Left ankle. Views: 3 or more views. COMPARISON: CR Foot 3 views, LEFT* [id number] 01/15/2017 7:55 PM FINDINGS: Bones/joints: Normal. Soft tissues: Normal. XR/XR ankle LT min 3V* [id number] IMPRESSION: No acute findings.
--- NOTE | 2020-03-23 14:37 | US_ITS ---
WS: [id number] ULTRASOUND ABDOMEN LIMITED CLINICAL INFORMATION: Assess if splenomegaly. Check for ascites. COMPARISON: None. FINDINGS: Spleen Splenomegaly: None. Spleen measures 10.7 x 4.0 cm Right kidney: Normal. Hydronephrosis: None. Abdominal aorta and IVC Visualized portions are normal. Ascites: None. US/US abdomen limited [id number] IMPRESSION: 1. Normal spleen 2. No hydronephrosis in right kidney 3. No ascites.
--- NOTE | 2020-03-23 14:51 | P.PN_ITS ---
Subjective Subjective: Interval history: She continues being bothered by her chronic pain in the lower back, also left side back radiating into the left shoulder, as well as left ankle. Says that at home she tried taking her 's tizanidine, but it gave her a reaction causing itching, so she discontinued that. She requests for something different apart from the IV morphine, which she says is only 2 mg, or possibly increasing the dose to at least 4 mg. She reports she is allergic to hyd rocodone. She reports she was previously following with pain management due to chronic neck pain, however, was fired after missing an appointment for random pill count. She has an appointment with a spine surgeon scheduled for the . She considers following up with the pain specialist in [place]. Vitals/I&O/Wt Last Vital Signs Temp 98.9 F 03/23/20 11:39 Pulse 78 03/23/20 11:39 Resp 18 03/23/20 14:04 BP 110/76 03/23/20 11:39 Pulse Ox 97 03/23/20 11:39 03/22/20 03/23/20 03/23/20 22:59 06:59 14:59 Intake Total 480 / 480 1000 / 1480 828.333 / 828.333 Output Total 300 / 300 Balance 480 / 480 1000 / 1480 528.333 / 528.333 Weight last 48 hrs Weight 68.039 kg Physical Exam Const: COMMON NORMALS: no acute distress and patient oriented x3 HENMT: COMMON NORMALS: oropharynx normal Neck/C-Spine: COMMON NORMALS: no JVD Resp: COMMON NORMALS: normal respiratory effort and clear to auscultation bilaterally AUSCULTATION: clear to auscultation bilaterally Cardio: COMMON NORMALS: no JVD, regular rhythm, S1 normal heart sound present, S2 normal heart sound present and No murmurs present (Cardio) RHYTHM: regular rhythm HEART SOUNDS: S1 normal heart sound present and S2 normal heart sound present GI: COMMON NORMALS: Normal to inspection, nondistended, normoactive bowel sounds present, Soft to palpation and non-tender PALPATION: Yes Soft to palpation Extremity: COMMON NORMALS: no joint enlargement and no pedal edema OTHER: Mild swelling of left lower extremity. She reports some pain of the left lower extremity. She does complain of some pain in the left ankle, however, I am able to flex and extend it passively. I do not detect any appreciable more swelling in the ankle itself, there is no erythema, no tenderness on palpation. She does report some pain on active range of motion. Neuro: COMMON NORMALS: patient oriented x3 and moves all extremities Skin: COMMON NORMALS: no rashes or lesions noted GENERAL SKIN EXAM: no rashes or lesions noted Data : 03/23/20 03:57 03/23/20 03:57 Micro: Microbiology 03/22/20 07:55 Urine Culture - Preliminary Urine,Clean Catch Gram Negative Rods A&P Assessment and plan (1) DVT (deep vein thrombosis) in : With noted worsening thrombocytopenia, platelets down to 79,000. For now will monitor closely in the hospital due to decreasing platelets. Do not see an apparent cause. She does have history of heavy alcohol intake, although reports recently has been not drinking very much. Denies history of cirrhosis. There is somewhat irregular surface of the liver on ultrasound. Will request spleen ultrasound. Ascites check. At this time difficult to assess for cirrhosis given her platelet levels and liver function are in flux. This may need to be revisited once she is more stable. Encouraged her to continue follow-up with her PCP due to risk of cirrhosis and its complications which we discussed. Encouraged her to completely abstain from any alcohol. She verbalized understanding and agreement. Due to thrombocytopenia at this time will request for peripheral smear. We will switch from Lovenox to Eliquis. Will change antibiotic from Rocephin to cefdinir by mouth. Options are unfortunately limited due to allergy to ciprofloxacin, and would avoid Bactrim given low white blood cell count and thrombocytopenia. Anticoagulation needed for left lower extremity DVT, as well as PE. Status: Acute (2) Transaminitis: This is improving. Hepatitis panel and HIV nonreactive. Patient denies significant alcohol intake currently but she has drank heavily in the past and admits to such. She may have underlying cirrhosis. Hepatic ultrasound not with obvious cirrhosis, but there may be some suggestion, and cannot rule out. Discussed with her concern for possibility of progression to cirrhosis as above. Status: Acute (3) Back pain: Secondary to sacral/S4-S5 fractures. She is requesting higher doses of opioids as per subjective. She also states of due to allergies her options were told to her in ER were limited to morphine or fentanyl. Discussed with her concerns about starting fentanyl. Discussed with her we will try also additional other methods of pain control. Include K pad. She is agreeable to start lidocaine patch for lower back pain. Encouraged her to follow-up with pain clinic. It appears she was previously fired from pain clinic here due to missing scheduled follow-up/random pill count. Encouraged her to keep the appointment for youth specialist in [place]. Her appointment is on the . Therapy consultation Status: Acute (4) Leukopenia: Unknown etiology. Certainly could be alcohol induced toxicity. Last alcoholic beverage was 2 ounces of whiskey 3 days ago. May be secondary to folate deficiency. Replace. Follow-up peripheral smear. Ultrasound spleen. Change antibiotic. Treat UTI. Status: Acute (5) Thrombocytopenia: As above. Assess for splenomegaly. Change antibiotic. Change from heparin products to Eliquis for anticoagulation. Discussed with her concern for possible cirrhosis. For now due to acute decrease additional monitoring in the hospital as she is requiring anticoagulation. Status: Acute (6) Macrocytosis: Folate deficiency. Receiving supplementation. Concerned this may be secondary to alcoholism. Thiamine 100 mg IM and thiamine p.o. daily Status: Acute (7) UTI (urinary tract infection): Discussed with her. Gram-negative rods. Follow-up results. Antibiotic changed to cefdinir. Status: Acute Additional A&P Information History of significant alcohol intake from what the patient relates was approximately 6 months to a year ago. Patient is currently denying intake other than 0-1 drinks per day, with last alcohol intake 2 ounces of whiskey 3 days ago. Encouraged continued cessation. Left ankle pain: Reports since fall for which was evaluated during last visit. Some pain on active range of motion. Does not appear to have pain on passive range of motion. No redness, swelling at the ankle that I can see apart from some generalized mild swelling of left lower extremity DVT. Will assess by left ankle x-ray. GERD, some vague abdominal complaints. Continue Protonix 40 mg twice daily History of hypertension History of SVT status post ablation Tobacco dependency. Continue to encourage smoking cessation. Full code Attestations Medical Necessity Statement*: Continue hospitalization for assessment of management of PE, initiation of anticoagulation in the setting of acute decrease of platelet levels, treatment of UTI, concern for possible underlying chronic liver disease. Coding Level of Care Code Acute Resistance Welding Machine Operator for Apryl Salas Diagnoses DVT (deep vein thrombosis) in O22.30 Transaminitis R74.0 Back pain M54.9 Leukopenia D72.819 Thrombocytopenia D69.6 Macrocytosis D75.89 UTI (urinary tract infection) N39.0
[2020-03-23 15:18] LABS: Lactate Dehydrogenase 215 U/L (135-214)
--- NOTE | 2020-03-23 15:42 | PC.RESP ---
SMOKING CESSATION INFORMATION SENT TO PATIENT.
[2020-03-23 16:32] LABS: LAB Peripheral Smear Sent for Review
[2020-03-23] MEDS: cefdinir 300 MG CAPSULE PO (18:31)
[2020-03-23] MEDS: apixaban 5 mg Tablet 10 MG PO (21:42)
[2020-03-23] MEDS: diphenhydrAMINE 25 mg Capsule PO (23:52)
[2020-03-24] VITALS (7 sets, daily range): BP systolic 97–111; BP diastolic 70–80; PULSE 73–90; RESP 14–112; TEMP 36.4–37.3; O2SAT 97–99
[2020-03-24] MEDS: morphine 4 mg/mL SDV 1 mL 2 MG IVP ×2 (04:17→13:13)
[2020-03-24 05:04] LABS: Basophils % 1.1 %; Eosinophils # 0.2 10^3/uL (0.0-0.8); Eosinophils % 6.3 %; Hematocrit 36.2 % (37.0-47.0); Hemoglobin 12.2 g/dL (11.5-15.3); Lymphocytes # 1.3 10^3/uL (0.8-4.8); Lymphocytes % 48.3 %; Mean Corpuscular HGB Conc 33.7 g/dL (30.0-36.0); Mean Corpuscular Hemoglobin 36.6 pg (28.0-34.0); Mean Corpuscular Volume 108.7 fL (81-99); Mean Platelet Volume 11.4 fL (7.4-10.4); Monocytes # 0.2 10^3/uL (0.2-0.9); Monocytes % 6.6 %; Neutrophils # 1.01 10^3/uL (1.8-7.7); Neutrophils % 37.3 %; Nucleated Red Blood Cells % 0 %; Platelet Count 72 10^3/cmm (130-400); Red Blood Count 3.33 10^6/uL (4.1-5.3); Red Cell Distribution Width 13.2 % (12.1-15.1); White Blood Count 2.7 10^3/uL (4.0-10.0)
[2020-03-24 05:31] LABS: Alanine Aminotransferase 17 U/L (0-33); Alkaline Phosphatase 125 IU/L (35-105); Anion Gap 11.3 (5-19); Aspartate Amino Transferase 30 U/L (0-32); Blood Urea Nitrogen 5 mg/dL (6-20); Calcium 8.4 mg/dL (8.5-10.5); Carbon Dioxide 25 mmol/L (22-29); Chloride 103 mmol/L (98-107); Globulin 3.4 g/dL (1.3-4.6); Glomerular Filtration Rate 77.6 mL/min (90-130); Glucose 94 mg/dL (65-115); Osmolality Calculated 275 mOsm/kg (285-295); Potassium 4.3 mmol/L (3.5-5.1); Sodium 135 mmol/L (136-145); Total Bilirubin 0.5 mg/dL (0.15-1.2); Total Protein 6.4 g/dL (6.6-8.7)
[2020-03-24] MEDS: thiamine 100 mg Tablet PO (10:16)
[2020-03-24] MEDS: cefdinir 300 MG CAPSULE PO (10:16)
[2020-03-24] MEDS: folic acid 1 mg Tablet PO (10:16)
[2020-03-24] MEDS: apixaban 5 mg Tablet 10 MG PO (10:17)
[2020-03-24] MEDS: ondansetron 2 mg/ML SDV 2 mL 4 MG IVP (10:17)
[2020-03-24] MEDS: D5-NS 0.45% + KCL 20 mEq 20 MEQ/1,000 ML BAG 75 MEQ IV (11:30)
--- NOTE | 2020-03-24 14:13 | P.DS_ITS ---
Discharge Providers Date of Admission: 03/22/20 12:15 Date of Discharge: March 24, 2020 Attending Provider at Admission: Franck Ibanez MD Attending Provider at Discharge: Jason Kelley Primary Care Provider: RODERICK Gonzales Diagnoses at Discharge Discharge Diagnosis (1) DVT (deep vein thrombosis) in : Status: Acute (2) Transaminitis: Status: Acute (3) Back pain: Status: Acute (4) Leukopenia: Status: Acute (5) Thrombocytopenia: Status: Acute (6) Macrocytosis: Status: Acute (7) UTI (urinary tract infection): Status: Acute Reason for Visit Reason for Visit: L LEG PAIN Hospital Course Hospital Course: 44 yo lady with history of HTN, GERD, PSVT, history of alcohol abuse, although she reports has cut down significantly and recently stopped entirely, fibromyalgia, previously following with pain clinic due to chronic neck pain, was recently assessed in ER after a fall with finding of slightly commuted fracture of S4-S5, and after assessment was discharged for outpatient follow-up, returned to the hospital complaining of left leg/calf pain, swelling for 3-4 days, with finding of DVT on Doppler ultrasound in ER. She has been less mobile recently due to her lower back fracture. She does already have an appointment scheduled with a content management specialist on 03/30. Due to finding of DVT was started on Lovenox on presentation, with finding of UTI also received treatment with Rocephin. She was noted to have decreased blood cell counts, with leukopenia/neutropenia, as well as thrombocytopenia. These were discussed with her in detail, these may be secondary to prior alcohol effect on bone marrow causing suppression, and she was encouraged to continue abstinence from any alcohol, this appears to also been suggested by her peripheral smear. No abnormal cells were noted. In case there was some effect from Rocephin, this was switched to cefdinir (due to other medication allergies and risk of adverse effects), and Lovenox was switched over to Eliquis in case there was some effect from heparin products and to allow for continued anticoagulation. Her blood counts stabilized with platelets at 70,000. Risks of bleeding were discussed with her. She was instructed to follow-up closely with her primary care provider, was instructed for now to maintain neutropenic precautions, although this is more in case her blood counts do decrease further (please follow-up blood counts in office to make sure they are recovering. She is also given prescription for folic acid replacement, as this deficiency may contribute to affect some bone marrow. Please refer to hematology if there is no improvement. Please also follow-up, as discussed with her, with regards to her liver, as there is some coarseness noted on ultrasound, with fatty infiltration, and with history of alcohol overuse, concern is about progression to possible liver fibrosis, or even cirrhosis. This will need to be assessed more closely once her blood counts and liver parameters are more stable. She did have decreasing AST and ALT on presentation. Hepatitis panel is negative. This is resolved. There is some persistent alkaline phosphatase elevation, although this may be also secondary to her fractures. Please follow-up. Physical Exam Const: COMMON NORMALS: no acute distress and patient oriented x3 OTHER: Today she is feeling about the same. Has been having some itching in her ankles, bothered by the chronic back pain. Otherwise doing well. HENMT: COMMON NORMALS: oropharynx normal Neck/C-Spine: COMMON NORMALS: no JVD Resp: COMMON NORMALS: normal respiratory effort and clear to auscultation bilaterally AUSCULTATION: clear to auscultation bilaterally Cardio: COMMON NORMALS: no JVD, regular rhythm, S1 normal heart sound present, S2 normal heart sound present and No murmurs present (Cardio) RHYTHM: regular rhythm HEART SOUNDS: S1 normal heart sound present and S2 normal heart sound present GI: COMMON NORMALS: Normal to inspection, nondistended, normoactive bowel sounds present, Soft to palpation and non-tender PALPATION: Yes Soft to palpation Extremity: COMMON NORMALS: no joint enlargement and no pedal edema OTHER: Mild LLE swelling improving. No rash. No ankle swelling/redness or warmth. Neuro: COMMON NORMALS: patient oriented x3 and moves all extremities Skin: COMMON NORMALS: no rashes or lesions noted GENERAL SKIN EXAM: no rashes or lesions noted Discharge Data Data Completed and Pending: Completed Studies During Hospitalization Category Date Time Status CT angio chest PE protcl [id number] Rout ine Cat Scan 03/22/20 13:20 Completed XR ankle LT min 3 V* [id number] Routine Exams 03/23/20 14:37 Completed CV echo complete* [id number] Routine Ultrasound 03/23/20 06:00 [place] [id number] Urgent Ultrasound 03/22/20 07:40 Completed US abdomen limite d [id number] Routine Ultrasound 03/23/20 14:37 Completed US gall bladder 7 [id number] Routine Ultrasound 03/22/20 13:20 Completed Pending at discharge Category Date Time Status Complete Blood Co unt w/Auto AM LABS Lab 03/25/20 04:00 Ordered Complete Blood Co unt w/Auto AM LABS Lab 03/26/20 04:00 Ordered Comprehensive Met abolic Panel AM LA BS Lab 03/25/20 04:00 Ordered Comprehensive Met abolic Panel AM LA BS Lab 03/26/20 04:00 Ordered Labs from last 24 hours 03/24/20 03/24/20 03/23/20 04:39 04:39 03:57 WBC 2.7 L RBC 3.33 L Hgb 12.2 Hct 36.2 L MCV 108.7 H MCH 36.6 H MCHC 33.7 RDW 13.2 Plt Count 72 L MPV 11.4 H Neut % (Auto) 37.3 Lymph % (Auto) 48.3 Pacific % (Auto) 6.6 Eos % (Auto) 6.3 Baso % (Auto) 1.1 Neut # (Auto) 1.01 L Lymph # (Auto) 1.3 [place] # (Auto) 0.2 Eos # (Auto) 0.2 Baso # (Auto) 0.0 Nucleated RBC % (a uto) 0 Nucleated RBCs # 0.0 Haptoglobin 33.0 Sodium 135 L Potassium 4.3 Chloride 103 Carbon Dioxide 25 Anion Gap 11.3 BUN 5 L Creatinine 0.8 GFR Calculation 77.6 L Glucose 94 Calculated Osmolal ity 275 L Calcium 8.4 L Total Bilirubin 0.5 AST 30 ALT 17 Alkaline Phosphata se 125 H Lactate Dehydrogen ase 215 H Total Protein 6.4 L Albumin 3.0 L Globulin 3.4 Vitals: Last Vital Signs Temp 97.5 F L 03/24/20 12:00 Pulse 90 03/24/20 12:00 Resp 18 03/24/20 13:13 BP 111/80 03/24/20 12:00 Pulse Ox 97 03/24/20 12:00 Discharge Plan Discharge Patient Disposition: Home Condition: Stable Prescriptions: New carisoprodol 350 mg Tablet 350 mg PO Q8H PRN (Reason: Pain) Qty: 12 RF: 0 folic acid 1 mg Tablet 1 mg PO DAILY Qty: 30 RF: 0 cefdinir 300 mg Capsule 300 mg PO BID 3 Days Qty: 6 RF: 0 apixaban 5 mg (74 tabs) tablets,dose pack See Rx Instructions .ROUTE .COMPLEX Qty: 74 RF: 0 thiamine mononitrate (vit B1) [Vitamin B-1 (mononitrate)] 100 mg Tablet 100 mg PO DAILY Qty: 30 RF: 0 Continued omeprazole magnesium [Prilosec OTC] 20 mg Tablet,Delayed Release (Dr/Ec) 20 mg PO DAILY RF: 0 cetirizine [Zyrtec] 10 mg Tablet 10 mg PO DAILY RF: 0 B-complex with vitamin C [Super B Complex-Vitamin C] Tablet 1 tab PO DAILY RF: 0 Benadryl Allergy 25 mg Tablet 25 mg PO Q6H PRN (Reason: allergies) RF: 0 Discharge Orders: Discharge Order (Routine); Ordered 03/24/20 Ordered By: Jason Kelley Referrals: ASH Lopez, CALENDER WIND UP HELPER [Primary Care Provider] - 4-7 days Discharge Diet: As Directed Discharge Activity: Increase activity as tolerated Activity Restrictions/Additional Instructions: Please abstain from any alcohol as it may suppress bone marrow and reduce production of white blood cells, including neutrophils as discussed, which may raise risk of infection, as well as platelets, which may raise risk of bleeding. Please make sure to follow-up with your primary care doctor for regular reassessments of blood count levels, especially since you are needing a blood thinner for treatment of pulmonary blood clot and thrombus in your leg. Please be sure to avoid any kind of trauma, as blood thinner medication can increase your risk of bleeding. This medication needs to be discontinued in advance in case you need any kind of surgical procedure. Please discuss with your primary care doctor regarding blood thinner, as well as duration that it will be necessary. Please continue folic acid replacement, as this may help with replenishing your blood counts. Please complete antibiotic course for urinary infection. Please follow up with content management specialist as scheduled for fractures in your back as previously instructed. Continue symptomatic treatment of pain*instructed on ER discharge. Please follow-up with your primary care doctor for possible referral to pain specialist. Please discuss with your primary care doctor regarding any recurrence of abdominal discomfort. If it persists, please discuss additional follow-up, possibly by gastroscopy to exclude any additional causes and make sure there is nothing else, including malignancy. Discharge Attestations Time Spent in Discharge Care*: greater than 30 min Quality Metrics Clinical Quality Measures During this hospital stay, did patient experience: None Coding Level of Care Code Acute Sleep Technician for Chg Fwd Diagnoses DVT (deep vein thrombosis) in O22.30 Transaminitis R74.0 Back pain M54.9 Leukopenia D72.819 Thrombocytopenia D69.6 Macrocytosis D75.89 UTI (urinary tract infection) N39.0
== END 2020-03-24 17:45 | disposition home or self-care (01) ==
LOC: ER 09:35 → MEDSURG 12:29
PROVIDERS: Emergency Medicine; Nurse Practitioner Family; Admitting Provider Internal Medicine; PCP Nurse Practitioner Family; Visit Provider Internal Medicine
DX: I82.432 Acute embolism and thrombosis of left popliteal vein (principal); I82.452 Acute embolism and thrombosis of left peroneal vein; I82.462 Acute embolism and thrombosis of left calf muscular vein; R74.0 Nonspecific elevation of levels of transaminase and lactic acid dehydrogenase [LDH]; D72.819 Decreased white blood cell count, unspecified; D69.6 Thrombocytopenia, unspecified; D75.89 Other specified diseases of blood and blood-forming organs; N39.0 Urinary tract infection, site not specified; S32.10XA Unspecified fracture of sacrum, initial encounter for closed fracture; I10 Essential (primary) hypertension; F17.210 Nicotine dependence, cigarettes, uncomplicated; Z79.01 Long term (current) use of anticoagulants; D52.9 Folate deficiency anemia, unspecified; K21.9 Gastro-esophageal reflux disease without esophagitis; Z88.1 Allergy status to other antibiotic agents; Z88.5 Allergy status to narcotic agent; X58.XXXA Exposure to other specified factors, initial encounter
CPT/HCPCS: 12345; 36415; 71275; 73610; 76705; 80053; 80074; 80500; 81001; 82607; 82746; 83010; 83615; 83690; 83735; 84443; 85025; 85610; 87077; 87086; 87186; 87426; 87806; 93005; 93306; 93971; 96361; 96365; 96372; 96375; 96376; 97161; 97530; 99283; 99285; G0378; J0696; J1650; J2270; J2405; J3411; J3475; Q9967

== ENCOUNTER 2020-04-01 13:53 | Outpatient (CLI) | payer SELFPAY ==
[2020-04-01 14:46] LABS: Basophils # 0.1 10^3/uL (0.0-0.1); Basophils % 1.4 %; Eosinophils # 0.2 10^3/uL (0.0-0.8); Eosinophils % 3.5 %; Hematocrit 41.8 % (37.0-47.0); Hemoglobin 13.8 g/dL (11.5-15.3); Mean Corpuscular Volume 109.1 fL (81-99); Mean Platelet Volume 11.1 fL (7.4-10.4); Monocytes # 0.3 10^3/uL (0.2-0.9); Monocytes % 5.9 %; Neutrophils # 3.12 10^3/uL (1.8-7.7); Nucleated Red Blood Cells % 0 %; Platelet Count 194 10^3/cmm (130-400); Red Blood Count 3.83 10^6/uL (4.1-5.3); Red Cell Distribution Width 13.4 % (12.1-15.1); White Blood Count 5.8 10^3/uL (4.0-10.0)
== END 2020-04-01 13:54 | disposition home or self-care (01) ==
LOC: LAB 13:57
PROVIDERS: PCP Nurse Practitioner Family; Visit Provider Nurse Practitioner Family
DX: I10 Essential (primary) hypertension (principal)
CPT/HCPCS: 85025

== ENCOUNTER 2020-04-08 09:36 | Emergency (ER) | payer SELFPAY ==
[2020-04-08 09:44] VITALS: BP 108/84; PULSE 82; RESP 16; TEMP 36.7; O2SAT 100; BMI 19.2
[2020-04-08 10:01] VITALS: O2SAT 100
--- NOTE | 2020-04-08 10:01 | XRR_ITS ---
PROCEDURE INFORMATION: Exam: XR Chest, 1 View Exam date and time: 04/08/2020 10:54 AM Age: 44 years old Clinical indication: Chest pain, dizzy TECHNIQUE: Imaging protocol: XR of the chest Views: 1 view. COMPARISON: CR XR ribs LT mn 3V w CXR1V [id number] 02/03/2020 5:40 PM FINDINGS: Lungs: No lung consolidation or pulmonary edema. Pleural space: No pleural effusion or pneumothorax. Heart/Mediastinum: The cardiac silhouette is not enlarged. The mediastinal contours are normal. Bones/joints: Minimal S-shaped curvature of the thoracic spine. Soft tissues: There is a left epicardial fat pad. XR/XR chest 1V portable [id number] IMPRESSION: No acute abnormality.
--- NOTE | 2020-04-08 10:08 | ED_ITS ---
HPI - General Adult General: Chief complaint: Nausea/Vomiting/Diarrhea Stated complaint: dizzy, cp Time Seen by Provider: 04/08/20 09:43 Source: patient Mode of arrival: ambulatory Limitations: no limitations History of Present Illness: HPI narrative: Patient is a 44-year-old female who presents to ED today with a complaint of nausea and vomiting yesterday evening. She states this is not overly abnormal for her as she has a chronic history of stomach problems . She tells me she took a Zofran to help with her symptoms. She tells me this morning she started noticing pain in her left lower leg. Patient was recently diagnosed with a DVT. She was admitted to the hospital and placed on Lovenox and subsequently switched to Eliquis at discharge-this was later switched to Xarelto due to insurance. Patient during that hospital visit was also diagnosed with PEs. Patient does tell me this morning she began having some pain to the left side of her chest. She does not seem to have any difficulty breathing or shortness of breath. She states pain seems to be worse with movement and palpation. Associated symptoms: Reports chest pain, nausea and vomiting; Deny dyspnea, headache(s), rash, palpitations or syncope Review of Systems Const: Denies: fever(s), chills, body aches or fatigue Card: Reports: chest pain; Denies: palpitations, irregular heart rhythm, edema, swelling of feet/ankles, lightheadedness, syncope, pre-syncope, dyspnea on exertion, orthopnea, leg pain with exertion or acrocyanosis Resp: Denies: dyspnea, productive cough, non-productive cough, change in phlegm color, hemoptysis or chest congestion GI: Reports: nausea and vomiting; Denies: abdominal pain, hematemesis, coffee ground emesis, hematochezia or melena : Denies: flank pain, difficulty voiding, dysuria, urinary frequency, urinary urgency or urinary hesitancy Musc: Denies: neck pain, back pain, extremity pain (L LE), extremity swelling, joint pain or joint swelling Skin/Breast: Denies: rash Neuro: Denies: headache(s), numbness in extremities, weakness in extremities or sensory changes PFS ED PFSH: Medical History (Updated 04/08/20 @ 11:49 by SALLY Ceja) Deep vein thrombosis (DVT) of calf muscle vein of left lower extremity Dyshidrotic hand dermatitis Fibromyalgia GERD (gastroesophageal reflux disease) HTN (hypertension) Migraine without aura, not intractable, without status migrainosus PSVT (paroxysmal supraventricular tachycardia) Spinal stenosis, cervical region Suspected COVID-19 virus infection Vitamin B12 deficiency anemia Vitamin D deficiency Surgical History H/O colonoscopy 2018 - normal History of hysterectomy with bilateral oophorectomy History of radiofrequency ablation (RFA) procedure for cardiac arrhythmia Hx of appendectomy S/P carpal tunnel release S/P tubal ligation Family History Mother Atrial fibrillation Hypertension Social History Smoking and tobacco status: current every day smoker cigarettes Packs smoked per day: 0.5 Years cigarettes smoked: 30 Alcohol intake: current Alcohol intake frequency: 0-2 Drinks per Day Lives independently: Yes Household members: spouse and family Marital status: service: No Current occupational status: unemployed History of recent travel: No Current gender identity: Female Female Reproductive History: Date of last menstrual period: 07/31/10 Physical Exam Const: COMMON NORMALS: no acute distress, average body habitus, patient oriented x3, no limitations, healthy appearing, alert and well nourished ORIENTATION/CONSCIOUSNESS: Yes oriented to person, Yes oriented to place and Yes oriented to time HENMT: COMMON NORMALS: normocephalic and atraumatic HEAD & SCALP: normocephalic and atraumatic Chest: COMMONS NORMALS: normal inspection of the chest OTHER: TTP anterior/lateral chest Resp: COMMON NORMALS: normal respiratory effort and clear to auscultation bilaterally AUSCULTATION: clear to auscultation bilaterally Cardio: COMMON NORMALS: regular rate and regular rhythm RATE: regular rate RHYTHM: regular rhythm GI: COMMON NORMALS: Normal to inspection, nondistended, normoactive bowel sounds present, Soft to palpation, No hepatosplenomegaly present and no masses PALPATION: Yes Soft to palpation, Yes Tenderness to palpation present (GI) (epigastric) and Yes No hepatosplenomegaly present Extremity: COMMON NORMALS: normal to inspection, full ROM, capillary refill normal and no pedal edema GENERAL: Yes normal exam except as noted OTHER: TTP L calf; no obvious swelling; no redness/warmth appreciated; NV intact Neuro: COMMON NORMALS: patient oriented x3 SENSORIUM/ORIENTATION: Yes alert, Yes oriented to person, Yes oriented to place and Yes oriented to time Course Vital Signs: Vital signs: Vital Signs Temperature 98.1 F 04/08/20 09:44 Pulse Rate 67 04/08/20 12:30 Respiratory Rate 17 04/08/20 12:30 Blood Pressure 116/95 04/08/20 12:30 Pulse Oximetry 100 04/08/20 12:30 MDM - General Adult MDM Narrative: Medical decision making narrative: Patient's leg pain is not a new complaint. She was complaining of pain in her leg on 03/22 when she was admitted. She continued to complain of pain in her leg her PCP follow-up. Work-up for her chest pain including troponin, CXR, EKG all without ischemic changes. She has no evidence of RV strain at this time. She is not tachycardic or hypoxic. I spoke to Dr. Reynoso who agrees there is no need to repeat ultrasound imaging or CTA at this time. Recommend she continue her Xarelto. She has appointment with PCP in 6 days for follow-up. Return to ED precautions given. Lab Data: Labs: Lab Results 04/08/20 04/08/20 04/08/20 Range/Units 10:13 10:13 10:13 WBC 2.7 L (4.0-10.0) 10^3/ uL RBC 4.18 (4.1-5.3) 10^6/u L Hgb 14.8 (11.5-15.3) g/dL Hct 45.4 (37.0-47.0) % MCV 108.6 H (81-99) fL MCH 35.4 H (28.0-34.0) pg MCHC 32.6 (30.0-36.0) g/dL RDW 13.8 (12.1-15.1) % Plt Count 143 (130-400) 10^3/c mm MPV 10.5 H (7.4-10.4) fL Neut % (Auto) 57.5 % Lymph % (Auto) 30.0 % [place] % (Auto) 5.9 % Eos % (Auto) 4.4 % Baso % (Auto) 1.8 % Neut # (Auto) 1.57 L (1.8-7.7) 10^3/u L Lymph # (Auto) 0.8 (0.8-4.8) 10^3/u L [place] # (Auto) 0.2 (0.2-0.9) 10^3/u L Eos # (Auto) 0.1 (0.0-0.8) 10^3/u L Baso # (Auto) 0.1 (0.0-0.1) 10^3/u L Nucleated RBC % (a uto) 0 % Nucleated RBCs # 0.0 /100WBC Sodium 135 L (136-145) mmol/L Potassium 4.0 (3.5-5.1) mmol/L Chloride 99 (98-107) mmol/L Carbon Dioxide 24 (22-29) mmol/L Anion Gap 16.0 (5-19) BUN 7 (6-20) mg/dL Creatinine 1.1 H (0.5-0.9) mg/dL GFR Calculation 53.7 L (90-130) mL/min Glucose 94 (65-115) mg/dL Calculated Osmolal ity 276 L (285-295) mOsm/k g Calcium 9.9 (8.5-10.5) mg/dL Total Bilirubin 1.4 H (0.15-1.2) mg/dL AST 39 H (0-32) U/L ALT 20 (0-33) U/L Alkaline Phosphata se 147 H (35-105) IU/L Troponin T Gen 5 n g/L 7 (0-10) ng/L Total Protein 7.8 (6.6-8.7) g/dL Albumin 3.9 (3.5-5.2) g/dL Globulin 3.9 (1.3-4.6) g/dL Lipase 20 (13-60) U/L Urine Color (Yellow) Urine Appearance (CLEAR) Urine pH (5-7) Ur Specific Gravit y (1.005-1.030) Urine Protein (Negative) Urine Glucose (UA) (Normal) Urine Ketones (Negative) Urine Blood (Negative) Urine Nitrate (Negative) Urine Bilirubin (NEGATIVE) Prot Sulfosalicyli c Acd (Negative) Urine Urobilinogen (Negative) mg/dL Ur Leukocyte Rachel ase (Negative) 04/08/20 Range/Units 10:57 WBC (4.0-10.0) 10^3/ uL RBC (4.1-5.3) 10^6/u L Hgb (11.5-15.3) g/dL Hct (37.0-47.0) % MCV (81-99) fL MCH (28.0-34.0) pg MCHC (30.0-36.0) g/dL RDW (12.1-15.1) % Plt Count (130-400) 10^3/c mm MPV (7.4-10.4) fL Neut % (Auto) % Lymph % (Auto) % [place] % (Auto) % Eos % (Auto) % Baso % (Auto) % Neut # (Auto) (1.8-7.7) 10^3/u L Lymph # (Auto) (0.8-4.8) 10^3/u L [place] # (Auto) (0.2-0.9) 10^3/u L Eos # (Auto) (0.0-0.8) 10^3/u L Baso # (Auto) (0.0-0.1) 10^3/u L Nucleated RBC % (a uto) % Nucleated RBCs # /100WBC Sodium (136-145) mmol/L Potassium (3.5-5.1) mmol/L Chloride (98-107) mmol/L Carbon Dioxide (22-29) mmol/L Anion Gap (5-19) BUN (6-20) mg/dL Creatinine (0.5-0.9) mg/dL GFR Calculation (90-130) mL/min Glucose (65-115) mg/dL Calculated Osmolal ity (285-295) mOsm/k g Calcium (8.5-10.5) mg/dL Total Bilirubin (0.15-1.2) mg/dL AST (0-32) U/L ALT (0-33) U/L Alkaline Phosphata se (35-105) IU/L Troponin T Gen 5 n g/L (0-10) ng/L Total Protein (6.6-8.7) g/dL Albumin (3.5-5.2) g/dL Globulin (1.3-4.6) g/dL Lipase (13-60) U/L Urine Color [place] (Yellow) Urine Appearance Clear (CLEAR) Urine pH 8.0 H (5-7) Ur Specific Gravit y 1.005 (1.005-1.030) Urine Protein Neg (Negative) Urine Glucose (UA) Norm (Normal) Urine Ketones Negative (Negative) Urine Blood Neg (Negative) Urine Nitrate Negative (Negative) Urine Bilirubin Neg (NEGATIVE) Prot Sulfosalicyli c Acd Negative (Negative) Urine Urobilinogen Norm (Negative) mg/dL Ur Leukocyte Rachel ase Negative (Negative) Imaging Data^: CXR: Radiologist's impression: [place] [address] XRay Report Signed Patient: Denisa Orourke Unit #: [id number] : 1975 Age/Sex: 44 / F ADM Date: 04/08/20 Loc: ER Room/Bed: Attending Dr: Ordering Provider/Ordering MD: Missy Shah Date of Service: 04/08/20 Procedure(s): XR chest 1V portable [id number] Accession Number(s): [id number] Report Number: [id number] PROCEDURE INFORMATION: Exam: XR Chest, 1 View Exam date and time: 04/08/2020 10:54 AM Age: 44 years old Clinical indication: Chest pain, dizzy TECHNIQUE: Imaging protocol: XR of the chest Views: 1 view. COMPARISON: CR XR ribs LT mn 3V w CXR1V [id number] 02/03/2020 5:40 PM FINDINGS: Lungs: No lung consolidation or pulmonary edema. Pleural space: No pleural effusion or pneumothorax. Heart/Mediastinum: The cardiac silhouette is not enlarged. The mediastinal contours are normal. Bones/joints: Minimal S-shaped curvature of the thoracic spine. Soft tissues: There is a left epicardial fat pad. XR/XR chest 1V portable [id number] IMPRESSION: No acute abnormality. Dictated By: Anival Cannon Signed By: Anival Cannon Signed Date/Time: 04/08/20 1143 DD/ 1141 Discharge Plan Discharge Patient Disposition: Home Clinical Impression: Chronic epigastric pain Deep vein thrombosis (DVT) of calf muscle vein of left lower extremity Qualifiers: Chronicity: acute Qualified Code(s): I82.462 - Acute embolism and thrombosis of left calf muscular vein Pulmonary emboli Qualifiers: Pulmonary embolism type: unspecified Chronicity: acute Acute cor pulmonale presence: without acute cor pulmonale Qualified Code(s): I26.99 - Other pulmonary embolism without acute cor pulmonale Condition: Stable Prescriptions: No Action Xarelto 15 mg tablet 15 mg PO BID 21 Days Qty: 42 RF: 0 carisoprodol 350 mg tablet 350 mg PO Q8H PRN (Reason: Pain) Qty: 20 RF: 0 omeprazole magnesium [Prilosec OTC] 20 mg Tablet,Delayed Release (Dr/Ec) 20 mg PO DAILY RF: 0 cetirizine [Zyrtec] 10 mg Tablet 10 mg PO DAILY PRN (Reason: Allergy Symptoms) RF: 0 diphenhydramine HCl [Benadryl Allergy] 25 mg Tablet 25 mg PO PRN RF: 0 folic acid 1 mg Tablet 1 mg PO DAILY Qty: 30 RF: 0 thiamine mononitrate (vit B1) [Vitamin B-1 (mononitrate)] 100 mg Tablet 100 mg PO DAILY Qty: 30 RF: 0 Vitamin B-12 2 tab PO DAILY RF: 0 Discharge Orders: Discharge Order (Routine); Ordered 04/08/20 Ordered By: Missy Shah Referrals: ASH Lopez, AUCTION BLOCK CLERK [Primary Care Provider] - Activity Restrictions/Additional Instructions: As discussed please follow-up with ASH Lopez on your scheduled appointment on 04/14. You may return to the emergency department for difficulty breathing or shortness of breath. Continue your Xarelto as prescribed. Discharge Date/Time: 04/08/20 12:35 Coding Level of Care Code ED Physician Industrial for Chg Fwd Exam Detailed
--- NOTE | 2020-04-08 10:12 | ECG_ITS ---
[facility] Test Date: 2020-04-08 Pat Name: Denisa Orourke Department: Room: Gender: Female Direct Marketing Manager: : 1975 Requested By: Missy Shah Order Number: [id number] Valerie MD: Jeanne Zaidi M.D. Measurements Intervals [place] Rate: 78 P: 50 [place]: 166 QRS: -19 QRSD: 107 T: 90 QT: 415 QTc: 474 Interpretive Statements SINUS RHYTHM INCOMPLETE RIGHT BUNDLE BRANCH BLOCK [90+ ms QRS DURATION, TERMINAL R IN V1/V2, 40+ ms S IN I/aVL/V4/V5/V6] Compared to ECG 03/22/2020 12:45:19 Incomplete right bundle-branch block now present Electronically Signed On 04-08-2020 20:05:36 CDT by Jeanne Zaidi M.D. [id number]
[2020-04-08 10:22] LABS: Basophils # 0.1 10^3/uL (0.0-0.1); Basophils % 1.8 %; Eosinophils # 0.1 10^3/uL (0.0-0.8); Eosinophils % 4.4 %; Hematocrit 45.4 % (37.0-47.0); Hemoglobin 14.8 g/dL (11.5-15.3); Lymphocytes # 0.8 10^3/uL (0.8-4.8); Mean Corpuscular HGB Conc 32.6 g/dL (30.0-36.0); Mean Corpuscular Hemoglobin 35.4 pg (28.0-34.0); Mean Corpuscular Volume 108.6 fL (81-99); Mean Platelet Volume 10.5 fL (7.4-10.4); Monocytes # 0.2 10^3/uL (0.2-0.9); Monocytes % 5.9 %; Neutrophils # 1.57 10^3/uL (1.8-7.7); Neutrophils % 57.5 %; Nucleated Red Blood Cells % 0 %; Platelet Count 143 10^3/cmm (130-400); Red Blood Count 4.18 10^6/uL (4.1-5.3); Red Cell Distribution Width 13.8 % (12.1-15.1); White Blood Count 2.7 10^3/uL (4.0-10.0)
[2020-04-08 10:48] LABS: Alanine Aminotransferase 20 U/L (0-33); Albumin Level 3.9 g/dL (3.5-5.2); Alkaline Phosphatase 147 IU/L (35-105); Aspartate Amino Transferase 39 U/L (0-32); Blood Urea Nitrogen 7 mg/dL (6-20); Calcium 9.9 mg/dL (8.5-10.5); Carbon Dioxide 24 mmol/L (22-29); Chloride 99 mmol/L (98-107); Globulin 3.9 g/dL (1.3-4.6); Glomerular Filtration Rate 53.7 mL/min (90-130); Glucose 94 mg/dL (65-115); Lipase 20 U/L (13-60); Osmolality Calculated 276 mOsm/kg (285-295); Sodium 135 mmol/L (136-145); Total Bilirubin 1.4 mg/dL (0.15-1.2); Total Protein 7.8 g/dL (6.6-8.7); Troponin T (5th) Once 7 ng/L (0-10)
[2020-04-08] MEDS: sodium chloride 0.9% 1,000 ML 999 ML IV (10:53)
[2020-04-08 10:54] VITALS: BP 106/88; PULSE 71; RESP 18; O2SAT 98
[2020-04-08 11:00] LABS: Add Urine Microscopic? NO
[2020-04-08 11:08] LABS: Urine Appearance Clear (CLEAR); Urine Color Orange (Yellow)
[2020-04-08 11:09] LABS: Bilirubin Urine Neg (NEGATIVE); Blood Urine Neg (Negative); Glucose Urine UA Norm (Normal); Ketones Urine Negative (Negative); Leukocyte Esterase Urine Negative (Negative); Nitrate Urine Negative (Negative); Protein Urine Neg (Negative); Specific Gravity, Urine 1.005 (1.005-1.030); Sulfosalicylic Acid Urine Negative (Negative); Urobilinogen Urine Norm (Negative)
[2020-04-08 12:30] VITALS: BP 116/95; PULSE 67; RESP 17; O2SAT 100
[2020-04-08] MEDS: promethazine 25 mg/mL SDV 1 mL IM (12:33)
== END 2020-04-08 12:35 | disposition home or self-care (01) ==
PROVIDERS: Emergency Provider Physician Assistant; PCP Nurse Practitioner Family
DX: I26.99 Other pulmonary embolism without acute cor pulmonale (principal); I82.462 Acute embolism and thrombosis of left calf muscular vein; G89.29 Other chronic pain; R10.13 Epigastric pain; I10 Essential (primary) hypertension; F17.210 Nicotine dependence, cigarettes, uncomplicated
CPT/HCPCS: 12345; 36415; 71045; 80053; 81003; 83690; 84484; 85025; 93005; 96360; 96361; 96372; 99283; 99284; J2550; J7030

== ENCOUNTER 2020-05-30 10:26 | Emergency (ER) | payer SELFPAY ==
[2020-05-30 10:37] VITALS: BP 119/98; PULSE 114; RESP 18; TEMP 39.5; O2SAT 100; BMI 22.0
--- NOTE | 2020-05-30 10:38 | XRR_ITS ---
PROCEDURE INFORMATION: Exam: XR Chest, 1 View Exam date and time: 05/30/2020 10:40 AM Age: 44 years old Clinical indication: Shortness of breath; Additional info: SOB TECHNIQUE: Imaging protocol: XR of the chest Views: 1 view. COMPARISON: CR XR chest 1V portable [id number] 04/08/2020 10:56 AM FINDINGS: Lungs: Mildly hyperaerated lungs consistent with deep inspiratory effort vs reactive airway disease vs mild COPD . Pleural space: Unremarkable. No pleural effusion. No pneumothorax. Heart/Mediastinum: Unremarkable. No cardiomegaly. Bones/joints: Unremarkable. XR/XR chest 1V portable [id number] IMPRESSION: Mildly hyperaerated lungs consistent with deep inspiratory effort vs reactive airway disease vs mild COPD .
--- NOTE | 2020-05-30 10:39 | ECG_ITS ---
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: : 1975 Requested By: Yoshi Pope Order Number: [id number] Valerie MD: DM MEJIA Measurements Intervals [place] Rate: 111 P: 72 [place]: 168 QRS: 81 QRSD: 88 T: 99 QT: 297 QTc: 405 Interpretive Statements SINUS TACHYCARDIA POSSIBLE RIGHT VENTRICULAR CONDUCTION DELAY [RSR (QR) IN V1/V2] ST DEVIATION AND MODERATE T-WAVE ABNORMALITY, CONSIDER ANTEROLATERAL ISCHEMIA [-0.1+ mV T WAVE IN V3-V6] ST DEVIATION AND MODERATE T-WAVE ABNORMALITY, CONSIDER INFERIOR ISCHEMIA [-0.1+ mV T WAVE IN II/aVF] Compared to ECG 04/08/2020 10:27:54 T-wave abnormality now present Possible ischemia now present Sinus rhythm no longer present Incomplete right bundle-branch block no longer present Electronically Signed On 05-30-2020 18:26:54 CDT by DM MEJIA [email or web address]
--- NOTE | 2020-05-30 10:47 | W.ED.COVID ---
HPI - COVID General: Chief Complaint: COVID symptoms Stated Complaint: 100.4 fever/cough/SOB/MUSCLE ACHES/NAUSEA/VOMITING Time Seen by Provider: 05/30/20 10:36 Triage information: Has fever, cough or shortness of breath. No known COVID + exposure last 14 days History of Present Illness: HPI Narrative: Patient is a 44-year-old female comes to the ED with abdominal pain, nausea/vomiting and a cough. Past medical history of GERD, hypertension, fibromyalgia. Patient has not had her gallbladder removed but does states she has had an appendectomy. Patient says symptoms started about 2 days ago. The abdominal pain is located in the right upper quadrant and she rates it an 8 out of 10. She describes her cough as mostly dry with some clear phlegm. She describes being short of breath during some of those coughing fits. She is also having multiple episodes of emesis nausea as well. Endorses fever, and had some diarrhea this morning. Denies chest pain, heart palpitations, dysuria or hematuria. Patient says she took some Tylenol last night to help her fever. Denies any known exposure to Covid positive patient. MD complaint: has COVID symptoms (Cough) COVID 19 common symptoms: positive fever(s), non-productive cough, dyspnea, nausea, vomiting and diarrhea; negative chills, productive cough, fatigue, headache(s), throat pain or nasal congestion COVID 19 other sytmptoms: negative chest pain COVID Results: SARS-CoV-2 Antigen (Rapid) Negative (Negative) 03/22/20 09:55 03/22/20 SARS-CoV-2 RNA (RT-PCR) Pending 05/30/20 14:17 05/30/20 Nasal/Oral Coronavirus 2019 PCR Not detected 01/27/20 10:25 01/27/20 Review of Systems Const: Reports: fever(s); Denies: chills or fatigue Eyes: Denies: change in vision or eye discomfort ENMT: Denies: throat pain, odynophagia, nasal discharge or nasal congestion Card: Denies: chest pain, palpitations, edema, swelling of feet/ankles, dyspnea on exertion or orthopnea Resp: Reports: dyspnea and non-productive cough; Denies: productive cough GI: Reports: abdominal pain, nausea, vomiting and diarrhea; Denies: constipation or hematochezia : Denies: flank pain, dysuria or hematuria Musc: Denies: neck pain, back pain or extremity swelling Skin/Breast: Denies: rash or new lesions Neuro: Denies: headache(s), numbness in extremities or weakness in extremities PFSH ED PFSH: Medical History Deep vein thrombosis (DVT) of calf muscle vein of left lower extremity Dyshidrotic hand dermatitis Fibromyalgia GERD (gastroesophageal reflux disease) HTN (hypertension) Migraine without aura, not intractable, without status migrainosus PSVT (paroxysmal supraventricular tachycardia) Spinal stenosis, cervical region Suspected COVID-19 virus infection Vitamin B12 deficiency anemia Vitamin D deficiency Surgical History H/O colonoscopy 2018 - normal History of hysterectomy with bilateral oophorectomy History of radiofrequency ablation (RFA) procedure for cardiac arrhythmia Hx of appendectomy S/P carpal tunnel release S/P tubal ligation Family History Mother Atrial fibrillation Hypertension Social History Smoking and tobacco status: current every day smoker cigarettes Packs smoked per day: 0.5 Years cigarettes smoked: 30 Alcohol intake: current Alcohol intake frequency: 0-2 Drinks per Day Lives independently: Yes Household members: spouse and family Marital status: service: No Current occupational status: unemployed History of recent travel: No Current gender identity: Female Female Reproductive History: Date of last menstrual period: 07/31/10 Physical Exam Const: COMMON NORMALS: no acute distress, patient oriented x3 and alert GENERAL APPEARANCE: cooperative and comfortable HENMT: COMMON NORMALS: normocephalic HEAD & SCALP: normocephalic MOUTH: Normal oral and palatal mucosa present THROAT: posterior oropharynx normal and uvula midline Eye: COMMON NORMALS: Equal, round and reactive pupils present PUPIL: Yes Equal, round and reactive pupils present Neck/C-Spine: COMMON NORMALS: supple GENERAL: Yes normal visual inspection Resp: COMMON NORMALS: normal respiratory effort, No retractions, No use of accessory muscles and clear to auscultation bilaterally EFFORT & INSPECTION: Yes able to speak in complete sentences, No tachypneic and No respiratory distress AUSCULTATION: clear to auscultation bilaterally Cardio: COMMON NORMALS: regular rate, regular rhythm, S1 normal heart sound present, S2 normal heart sound present, No gallops present (Cardio), No clicks present (Cardio), No murmurs present (Cardio) and Peripheral pulses 2+ throughout RATE: regular rate RHYTHM: regular rhythm HEART SOUNDS: S1 normal heart sound present and S2 normal heart sound present PERIPHERAL PULSES: Peripheral pulses 2+ throughout GI: COMMON NORMALS: Normal to inspection, nondistended, normoactive bowel sounds present, Soft to palpation and no masses PALPATION: Yes Soft to palpation and Yes Tenderness to palpation present (GI) Details: RUQ (Positive Borrego sign) : COMMON NORMALS: Yes no CVA tenderness BLADDER/KIDNEY EXAM: Yes no CVA tenderness Back/Pelvis: COMMON NORMALS: no CVA tenderness Extremity: COMMON NORMALS: normal to inspection and no pedal edema Neuro: COMMON NORMALS: patient oriented x3 and moves all extremities SENSORIUM/ORIENTATION: Yes alert Skin: GENERAL SKIN EXAM: dry skin Course Vital Signs: Vital signs: Vital Signs Temperature 103.1 F H 05/30/20 10:37 Pulse Rate 93 05/30/20 14:27 Respiratory Rate 18 05/30/20 14:27 Blood Pressure 111/84 05/30/20 14:27 Pulse Oximetry 99 05/30/20 14:27 Temperature was rechecked after Tylenol was given. Patient's temperature was 98.1. [facility] - COVID MDM Narrative Medical decision making narrative: Patient is a 44-year-old female who comes to the ED with shortness of breath, abdominal pain, nausea and vomiting. Patient has a past medical history of leukopenia, hypertension transaminitis. Exam Shows Patient Has Some Right Upper Quadrant Tenderness lungs are clear to auscultation bilaterally. No other remarkable exam findings. Temperature 103.1. Pulse 93, respiratory rate 18, blood pressure 111/84 and O2 sat 99% on room air. Chest x-ray showed no acute findings. Ultrasound of the gallbladder showed fatty liver and no other acute findings. EKG showed sinus tachycardia with no ST segment elevation or depression seen. Troponins were negative. White blood cell count 2.9 patient has history of leukopenia. Rest of CBC is unremarkable. Sodium 131, total bilirubin 1.4 Phos 124. Rest of CMP is unremarkable. hCG negative and lactic 1.1. [facility] Covid PCR test performed and is pending. After patient was given IV fluids Tylenol temperature went down to 98.1. Patient was discharged with upper respiratory infection and told to self quarantine until lab results are back. She was discharged with Zofran and albuterol inhaler to use as needed for any wheezing or shortness of breath. Follow-up with PCP in 7 to 10 days. Patient understood and agreed with plan. Lab Data Attestation: I reviewed the patient's lab results. Result diagrams: 05/30/20 11:09 05/30/20 11:09 Labs: Lab Results 05/30/20 05/30/20 05/30/20 Range/Units 11:09 11:09 11:09 WBC 2.9 L (4.0-10.0) 10^3/uL RBC 3.48 L (4.1-5.3) 10^6/uL Hgb 12.5 (11.5-15.3) g/dL Hct 36.4 L (37.0-47.0) % MCV 104.6 H (81-99) fL MCH 35.9 H (28.0-34.0) pg MCHC 34.3 (30.0-36.0) g/dL RDW 17.3 H (12.1-15.1) % Plt Count 54 L (130-400) 10^3/cmm MPV 11.0 H (7.4-10.4) fL Neut % (Auto) 85.7 % Lymph % (Auto) 9.2 % Jack % (Auto) 4.5 % Eos % (Auto) 0.0 % Baso % (Auto) 0.3 % Neut # (Auto) 2.50 (1.8-7.7) 10^3/uL Lymph # (Auto) 0.3 L (0.8-4.8) 10^3/uL Jack # (Auto) 0.1 L (0.2-0.9) 10^3/uL Eos # (Auto) 0.0 (0.0-0.8) 10^3/uL Baso # (Auto) 0.0 (0.0-0.1) 10^3/uL Nucleated RBC % (auto) 0 % Nucleated RBCs # 0.0 /100WBC Sodium 131 L (136-145) mmol/L Potassium 4.1 (3.5-5.1) mmol/L Chloride 95 L (98-107) mmol/L Carbon Dioxide 20 L (22-29) mmol/L Anion Gap 20.1 H (5-19) BUN 9 (6-20) mg/dL Creatinine 0.9 (0.5-0.9) mg/dL GFR Calculation 67.7 L (90-130) mL/min Glucose 80 (65-115) mg/dL Calculated Osmolality 270 L (285-295) mOsm/kg Lactic Acid (0.5-2.2) mmol/L Calcium 8.9 (8.5-10.5) mg/dL Total Bilirubin 1.4 H (0.15-1.2) mg/dL AST 46 H (0-32) U/L ALT 26 (0-33) U/L Alkaline Phosphatase 124 H (35-105) IU/L Troponin T Baseline (0-10) ng/L Troponin T 120 Minute (0-10) ng/L Delta Troponin T (0-10) ABS# Total Protein 6.9 (6.6-8.7) g/dL Albumin 4.0 (3.5-5.2) g/dL Globulin 2.9 (1.3-4.6) g/dL HCG, Qual Negative (Negative) 05/30/20 05/30/20 05/30/20 Range/Units 11:09 11:09 13:09 WBC (4.0-10.0) 10^3/uL RBC (4.1-5.3) 10^6/uL Hgb (11.5-15.3) g/dL Hct (37.0-47.0) % MCV (81-99) fL MCH (28.0-34.0) pg MCHC (30.0-36.0) g/dL RDW (12.1-15.1) % Plt Count (130-400) 10^3/cmm MPV (7.4-10.4) fL Neut % (Auto) % Lymph % (Auto) % Jack % (Auto) % Eos % (Auto) % Baso % (Auto) % Neut # (Auto) (1.8-7.7) 10^3/uL Lymph # (Auto) (0.8-4.8) 10^3/uL Jack # (Auto) (0.2-0.9) 10^3/uL Eos # (Auto) (0.0-0.8) 10^3/uL Baso # (Auto) (0.0-0.1) 10^3/uL Nucleated RBC % (auto) % Nucleated RBCs # /100WBC Sodium (136-145) mmol/L Potassium (3.5-5.1) mmol/L Chloride (98-107) mmol/L Carbon Dioxide (22-29) mmol/L Anion Gap (5-19) BUN (6-20) mg/dL Creatinine (0.5-0.9) mg/dL GFR Calculation (90-130) mL/min Glucose (65-115) mg/dL Calculated Osmolality (285-295) mOsm/kg Lactic Acid 1.1 (0.5-2.2) mmol/L Calcium (8.5-10.5) mg/dL Total Bilirubin (0.15-1.2) mg/dL AST (0-32) U/L ALT (0-33) U/L Alkaline Phosphatase (35-105) IU/L Troponin T Baseline 7 (0-10) ng/L Troponin T 120 Minute 6.34 (0-10) ng/L Delta Troponin T -0.66 L (0-10) ABS# Total Protein (6.6-8.7) g/dL Albumin (3.5-5.2) g/dL Globulin (1.3-4.6) g/dL HCG, Qual (Negative) COVID Results: SARS-CoV-2 Antigen (Rapid) Negative (Negative) 03/22/20 09:55 03/22/20 SARS-CoV-2 RNA (RT-PCR) Pending 05/30/20 14:17 05/30/20 Nasal/Oral Coronavirus 2019 PCR Not detected 01/27/20 10:25 01/27/20 Imaging Data CXR: Attestation: I personally reviewed and interpreted this imaging study as follows: Radiologist's impression: [address] [address] XRay Report Signed Patient: Denisa Orourke Unit #: [id number] : 1975 Age/Sex: 44 / F ADM Date: 05/30/20 Loc: ER Room/Bed: Attending Dr: Ordering Provider/Ordering MD: Yoshi Pope Date of Service: 05/30/20 Procedure(s): XR chest 1V portable [id number] Accession Number(s): [id number] Report Number: [id number] PROCEDURE INFORMATION: Exam: XR Chest, 1 View Exam date and time: 05/30/2020 10:40 AM Age: 44 years old Clinical indication: Shortness of breath; Additional info: SOB TECHNIQUE: Imaging protocol: XR of the chest Views: 1 view. COMPARISON: CR XR chest 1V portable [id number] 04/08/2020 10:56 AM FINDINGS: Lungs: Mildly hyperaerated lungs consistent with deep inspiratory effort vs reactive airway disease vs mild COPD . Pleural space: Unremarkable. No pleural effusion. No pneumothorax. Heart/Mediastinum: Unremarkable. No cardiomegaly. Bones/joints: Unremarkable. XR/XR chest 1V portable [id number] IMPRESSION: Mildly hyperaerated lungs consistent with deep inspiratory effort vs reactive airway disease vs mild COPD . Dictated By: Trey Hines MD Signed By: Trey Hines MD Signed Date/Time: 05/30/20 1155 DD/ 1154 US: Attestation: I personally reviewed and interpreted this imaging study as follows: Radiologist's impression: [address] [address] Ultrasound Report Signed Patient: Denisa Orourke Unit #: [id number] : 1975 Age/Sex: 44 / F ADM Date: 05/30/20 Loc: ER Room/Bed: Attending Dr: Ordering Provider/Ordering MD: Yoshi Pope Date of Service: 05/30/20 Procedure(s): US gall bladder [id number] Accession Number(s): [id number] Report Number: [id number] PROCEDURE INFORMATION: Exam: US Abdomen, Limited; Right Upper Quadrant Exam date and time: 05/30/2020 12:30 PM Age: 44 years old Clinical indication: Abdominal pain; Additional info: Ruq tenderness TECHNIQUE: Imaging protocol: US abdomen. Real time ultrasound with image documentation. Limited exam focused on the right upper quadrant. COMPARISON: US gall bladder [id number] 03/22/2020 3:23 PM FINDINGS: Liver: Fatty infiltration of the liver. 13.6 cm liver. Gallbladder: 1.4 mm gallbladder wall. Sonographically negative Borrego's sign suggesting no cholecystitis. Common bile duct: 2.7 mm common bile duct. Pancreas: Visualized pancreas is unremarkable. Right kidney: 10.5 x 4.4 x 4.7 cm right kidney with 1.2 cm right renal cortex. Aorta: 2.4 cm abdominal aortic diameter. Inferior vena cava: 1.9 cm IVC. US/US gall bladder [id number] IMPRESSION: Fatty infiltration of the liver. Dictated By: Trey Hines MD Signed By: Trey Hines MD Signed Date/Time: 05/30/20 1340 DD/ 1339 EKG Data EKG 1: Attestation: I personally reviewed and interpreted this EKG as follows: EKG interpretation date: 05/30/20 Interpretation: Sinus tachycardia, 111 bpm, flipped T wave in lead II. No ST segment elevation or depression seen. Discharge Plan Discharge Patient Disposition: Home Clinical Impression: Upper respiratory infection with cough and congestion Condition: Stable Prescriptions: New albuterol sulfate 90 mcg/actuation aerosol powdr breath activated 2 inh INHALATION Q6H PRN (Reason: shortness of breath or wheezing) Qty: 1 RF: 0 Zofran 4 mg tablet 4 mg PO Q8H Qty: 20 RF: 0 No Action Xarelto 15 mg tablet 15 mg PO BID 21 Days Qty: 42 RF: 0 carisoprodol 350 mg tablet 350 mg PO Q8H PRN (Reason: Pain) Qty: 20 RF: 0 omeprazole magnesium [Prilosec OTC] 20 mg Tablet,Delayed Release (Dr/Ec) 20 mg PO DAILY RF: 0 cetirizine [Zyrtec] 10 mg Tablet 10 mg PO DAILY PRN (Reason: Allergy Symptoms) RF: 0 diphenhydramine HCl [Benadryl Allergy] 25 mg Tablet 25 mg PO PRN RF: 0 folic acid 1 mg Tablet 1 mg PO DAILY Qty: 30 RF: 0 thiamine mononitrate (vit B1) [Vitamin B-1 (mononitrate)] 100 mg Tablet 100 mg PO DAILY Qty: 30 RF: 0 Vitamin B-12 2 tab PO DAILY RF: 0 Discharge Orders: Discharge Order (Routine); Ordered 05/30/20 Ordered By: Yoshi Pope Referrals: ASH Lopez, B[employer] C[employer]ER SERVICE SPECIALIST [Primary Care Provider] - Discharge Diet: Regular Discharge Activity: Resume usual activity Patient Instructions: Upper Respiratory Infection (ED) Activity Restrictions/Additional Instructions: Follow-up with medical provider as directed in 7-10 days. Use albuterol for any wheezing or shortness of breath. COVID testing was performed and sent to lab and results will be back in 2 to 3 days. Self quarantine for the next 3 days or up to 12 days pending on COVID testing results. Contact [facility] in 2 to 3 days to get results or [facility] will contact you with results. Take ibuprofen or Tylenol for fevers. Drink plenty of fluids and stay hydrated. Symptom management with [id number] cough and nasal decongestant meds. Return to the ER or your medical provider if condition worsens. Please read and understand discharge instructions. If any questions, please ask. 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
[2020-05-30 11:19] VITALS: O2SAT 98
[2020-05-30 11:23] LABS: Basophils % 0.3 %; Hematocrit 36.4 % (37.0-47.0); Hemoglobin 12.5 g/dL (11.5-15.3); Lymphocytes # 0.3 10^3/uL (0.8-4.8); Lymphocytes % 9.2 %; Mean Corpuscular HGB Conc 34.3 g/dL (30.0-36.0); Mean Corpuscular Hemoglobin 35.9 pg (28.0-34.0); Mean Corpuscular Volume 104.6 fL (81-99); Monocytes # 0.1 10^3/uL (0.2-0.9); Monocytes % 4.5 %; Neutrophils % 85.7 %; Nucleated Red Blood Cells % 0 %; Platelet Count 54 10^3/cmm (130-400); Red Blood Count 3.48 10^6/uL (4.1-5.3); Red Cell Distribution Width 17.3 % (12.1-15.1); White Blood Count 2.9 10^3/uL (4.0-10.0)
[2020-05-30 11:34] LABS: HCG, Serum Qual Negative (Negative)
[2020-05-30] MEDS: sodium chloride 0.9% 1,000 ML 999 ML IV (11:35)
[2020-05-30] MEDS: acetaminophen 500 mg Tablet 1000 MG PO (11:35)
[2020-05-30] MEDS: ondansetron 2 mg/ML SDV 2 mL 4 MG IVP (11:35)
[2020-05-30 11:46] LABS: Alanine Aminotransferase 26 U/L (0-33); Alkaline Phosphatase 124 IU/L (35-105); Blood Urea Nitrogen 9 mg/dL (6-20); Calcium 8.9 mg/dL (8.5-10.5); Carbon Dioxide 20 mmol/L (22-29); Chloride 95 mmol/L (98-107); Globulin 2.9 g/dL (1.3-4.6); Glomerular Filtration Rate 67.7 mL/min (90-130); Glucose 80 mg/dL (65-115); Osmolality Calculated 270 mOsm/kg (285-295); Sodium 131 mmol/L (136-145); Total Bilirubin 1.4 mg/dL (0.15-1.2); Total Protein 6.9 g/dL (6.6-8.7)
[2020-05-30 11:48] LABS: Troponin(5th) Baseline 7 ng/L (0-10)
[2020-05-30 12:01] LABS: Anion Gap 20.1 (5-19); Aspartate Amino Transferase 46 U/L (0-32); Potassium 4.1 mmol/L (3.5-5.1)
--- NOTE | 2020-05-30 12:29 | USR_ITS ---
PROCEDURE INFORMATION: Exam: US Abdomen, Limited; Right Upper Quadrant Exam date and time: 05/30/2020 12:30 PM Age: 44 years old Clinical indication: Abdominal pain; Additional info: Ruq tenderness TECHNIQUE: Imaging protocol: US abdomen. Real time ultrasound with image documentation. Limited exam focused on the right upper quadrant. COMPARISON: US gall bladder [id number] 03/22/2020 3:23 PM FINDINGS: Liver: Fatty infiltration of the liver. 13.6 cm liver. Gallbladder: 1.4 mm gallbladder wall. Sonographically negative Borrego's sign suggesting no cholecystitis. Common bile duct: 2.7 mm common bile duct. Pancreas: Visualized pancreas is unremarkable. Right kidney: 10.5 x 4.4 x 4.7 cm right kidney with 1.2 cm right renal cortex. Aorta: 2.4 cm abdominal aortic diameter. Inferior vena cava: 1.9 cm IVC. US/US gall bladder [id number] IMPRESSION: Fatty infiltration of the liver.
[2020-05-30 12:31] LABS: Lactic Sepsis W/Reflex 1.1 mmol/L (0.5-2.2)
[2020-05-30 12:39] VITALS: RESP 18; O2SAT 96
[2020-05-30] MEDS: morphine 4 mg/mL SDV 1 mL IVP (12:39)
[2020-05-30 13:36] LABS: Troponin 5 2HR 6.34 ng/L (0-10)
[2020-05-30 13:51] LABS: Troponin 5 2HR Delta -0.66 ABS# (0-10)
[2020-05-30 14:07] VITALS: RESP 18; O2SAT 98
[2020-05-30] MEDS: HYDROmorphone 1 mg/mL INJ 1 mL 0.5 MG IVP (14:07)
[2020-05-30 14:27] VITALS: BP 111/84; PULSE 93; RESP 18; O2SAT 99
[2020-05-31 14:48] LABS: Quest SARS-CoV-2 RNA NOT DETECTED (NOT DETECTED)
== END 2020-05-30 14:29 | disposition home or self-care (01) ==
PROVIDERS: Emergency Provider Physician Assistant; PCP Nurse Practitioner Family
DX: J06.9 Acute upper respiratory infection, unspecified (principal); I10 Essential (primary) hypertension; F17.210 Nicotine dependence, cigarettes, uncomplicated
CPT/HCPCS: 12345; 71045; 76705; 80053; 83605; 84484; 84703; 85025; 87635; 93005; 96361; 96374; 96375; 99283; 99284; J1170; J2270; J2405; J7030

== ENCOUNTER 2020-05-31 12:43 | Inpatient (IN) | payer SELFPAY ==
[2020-05-31] VITALS (8 sets, daily range): BP systolic 124–155; BP diastolic 75–99; PULSE 93–132; RESP 16–21; TEMP 37.5–39.4; O2SAT 94–98; BMI 22.7
--- NOTE | 2020-05-31 14:30 | ED_ITS ---
Documented by User: SALLY Mix 05/31/20 17:50 HPI - COVID General: Chief Complaint: COVID symptoms Stated Complaint: TESTED FOR COVID YEST, RUNNING FEVER/INCR SYMPTOMS Time Seen by Provider: 05/31/20 14:24 Triage information: Has fever, cough or shortness of breath . No known COVID + exposure last 14 days History of Present Illness: HPI Narrative: Patient is a 44-year-old female comes to the ED with fever, cough and nausea. Patient was seen here yesterday 05/30 for same complaint. She was diagnosed with upper respiratory infection, Covid testing was performed and is still pending. She was sent with a prescription for albuterol inhaler and Zofran. Patient says she did not fill the prescription because her family member had some Zofran and albuterol inhaler so she used that. After discharge patient said later that evening she developed a fever and took Tylenol but it did not help. She complains that she still having nausea and vomiting and not able to keep any thing down. Cough is described as nonproductive with some occasional clear phlegm. She has no known contact with Covid positive patient. Denies chest pain or shortness of breath, bladder or bowel symptoms. COVID 19 common symptoms: positive fever(s), non-productive cough, nausea and vomiting; negative chills, productive cough, dyspnea, fatigue, headache(s), throat pain, nasal congestion or diarrhea COVID 19 other sytmptoms: negative chest pain COVID Results: SARS-CoV-2 Antigen (Rapid) Negative (Negative) 03/22/20 09:55 03/22/20 SARS-CoV-2 RNA (RT-PCR) Not detected (NOT DETECTED) 05/30/20 14:17 05/30/20 Nasal/Oral Coronavirus 2019 PCR Not detected 01/27/20 10:25 01/27/20 Review of Systems Const: Reports: fever(s); Denies: chills or fatigue Eyes: Denies: change in vision or eye discomfort ENMT: Denies: throat pain, odynophagia, nasal discharge or nasal congestion Card: Denies: chest pain, palpitations, edema, swelling of feet/ankles, dyspnea on exertion or orthopnea Resp: Reports: non-productive cough; Denies: dyspnea or productive cough GI: Reports: nausea and vomiting; Denies: abdominal pain, diarrhea, constipation or hematochezia : Denies: flank pain, dysuria or hematuria Musc: Denies: neck pain, back pain or extremity swelling Skin/Breast: Denies: rash or new lesions Neuro: Denies: headache(s), numbness in extremities or weakness in extremities PFSH ED PFSH: Medical History Deep vein thrombosis (DVT) of calf muscle vein of left lower extremity Dyshidrotic hand dermatitis Fibromyalgia GERD (gastroesophageal reflux disease) HTN (hypertension) Migraine without aura, not intractable, without status migrainosus PSVT (paroxysmal supraventricular tachycardia) Spinal stenosis, cervical region Suspected COVID-19 virus infection Vitamin B12 deficiency anemia Vitamin D deficiency Surgical History H/O colonoscopy 2018 - normal History of hysterectomy with bilateral oophorectomy History of radiofrequency ablation (RFA) procedure for cardiac arrhythmia Hx of appendectomy S/P carpal tunnel release S/P tubal ligation Family History Mother Atrial fibrillation Hypertension Social History Smoking and tobacco status: current every day smoker cigarettes Packs smoked per day: 0.5 Years cigarettes smoked: 30 Alcohol intake: current Alcohol intake frequency: 0-2 Drinks per Day Lives independently: Yes Household members: spouse and family Marital status: service: No Current occupational status: unemployed History of recent travel: No Current gender identity: Female Female Reproductive History: Date of last menstrual period: 07/31/10 Physical Exam Const: COMMON NORMALS: no acute distress, patient oriented x3 and alert GENERAL APPEARANCE: cooperative and comfortable HENMT: COMMON NORMALS: normocephalic HEAD & SCALP: normocephalic MOUTH: moist mucous membranes abnormal Details: parched THROAT: posterior oropharynx normal and uvula midline Eye: COMMON NORMALS: Equal, round and reactive pupils present PUPIL: Yes Equal, round and reactive pupils present Neck/C-Spine: COMMON NORMALS: supple GENERAL: Yes normal visual inspection Resp: COMMON NORMALS: normal respiratory effort, No retractions, No use of accessory muscles and clear to auscultation bilaterally EFFORT & INSPECTION: Yes able to speak in complete sentences, No tachypneic and No respiratory distress AUSCULTATION: clear to auscultation bilaterally Cardio: COMMON NORMALS: regular rate, regular rhythm, S1 normal heart sound present, S2 normal heart sound present, No gallops present (Cardio), No clicks present (Cardio), No murmurs present (Cardio) and Peripheral pulses 2+ throughout RATE: regular rate RHYTHM: regular rhythm HEART SOUNDS: S1 normal heart sound present and S2 normal heart sound present PERIPHERAL PULSES: Peripheral pulses 2+ throughout GI: COMMON NORMALS: Normal to inspection, nondistended, normoactive bowel dorian nds present, Soft to palpation, non-tender and no masses PALPATION: Yes Soft to palpation : COMMON NORMALS: Yes no CVA tenderness BLADDER/KIDNEY EXAM: Yes no CVA tenderness Back/Pelvis: COMMON NORMALS: no CVA tenderness Extremity: COMMON NORMALS: normal to inspection and no pedal edema Neuro: COMMON NORMALS: patient oriented x3 and moves all extremities SENSORIUM/ORIENTATION: Yes alert Skin: GENERAL SKIN EXAM: dry skin Course ED course: I performed initial history, physical exam and lab work-up for patient. I told Denisa Guerra NP about patient's lab findings and her elevated pro calcitonin and D-dimer. I ordered a CTA of chest and abdomen which has not been performed yet. Told Denisa to consult with one of the ED doctors once CTA chest is complete for further care management of patient. Vital Signs: Vital signs: Vital Signs Temperature 102.9 F H 05/31/20 13:03 Pulse Rate 128 H 05/31/20 13:03 Respiratory Rate 18 05/31/20 18:49 Blood Pressure 127/87 05/31/20 13:03 Pulse Oximetry 98 05/31/20 18:49 MDM - COVID Lab Data Attestation: I reviewed the patient's lab results. Result diagrams: 05/31/20 15:15 05/31/20 15:15 Labs: Lab Results 05/31/20 05/31/20 05/31/20 Range/Units 15:15 15:15 15:15 WBC 2.7 L (4.0-10.0) 10^3/uL RBC 3.30 L (4.1-5.3) 10^6/uL Hgb 11.9 (11.5-15.3) g/dL Hct 34.1 L (37.0-47.0) % MCV 103.3 H (81-99) fL MCH 36.1 H (28.0-34.0) pg MCHC 34.9 (30.0-36.0) g/dL RDW 17.1 H (12.1-15.1) % Plt Count 37 L (130-400) 10^3/cmm MPV 11.1 H (7.4-10.4) fL Neut % (Auto) 78.9 % Lymph % (Auto) 10.0 % [place] % (Auto) 10.0 % Eos % (Auto) 0.0 % Baso % (Auto) 0.4 % Neut # (Auto) 2.13 (1.8-7.7) 10^3/uL Lymph # (Auto) 0.3 L (0.8-4.8) 10^3/uL [place] # (Auto) 0.3 (0.2-0.9) 10^3/uL Eos # (Auto) 0.0 (0.0-0.8) 10^3/uL Baso # (Auto) 0.0 (0.0-0.1) 10^3/uL Nucleated RBC % (auto) 0 % Nucleated RBCs # 0.0 /100WBC PT (12.1-14.9) SECONDS INR (0.8-1.2) APTT (23.9-36.7) SECONDS Fibrinogen 456 (174-498) mg/dL D-Dimer 3.22 H (0-0.59) ug/mIFEU Sodium 129 L (136-145) mmol/L Potassium 3.4 L (3.5-5.1) mmol/L Chloride 94 L (98-107) mmol/L Carbon Dioxide 20 L (22-29) mmol/L Anion Gap 18.4 (5-19) BUN 10 (6-20) mg/dL Creatinine 0.7 (0.5-0.9) mg/dL GFR Calculation 90.5 (90-130) mL/min Glucose 102 (65-115) mg/dL Calculated Osmolality 267 L (285-295) mOsm/kg Lactic Acid (0.5-2.2) mmol/L Calcium 8.3 L (8.5-10.5) mg/dL Ferritin 721 H (15-150) ng/mL Total Bilirubin 0.8 (0.15-1.2) mg/dL AST 124 H (0-32) U/L ALT 38 H (0-33) U/L Alkaline Phosphatase 103 (35-105) IU/L C-Reactive Protein 199.4 H (0.0-4.9) mg/L Total Protein 6.6 (6.6-8.7) g/dL Albumin 3.3 L (3.5-5.2) g/dL Globulin 3.3 (1.3-4.6) g/dL Procalcitonin 12.80 H (0-0.5) ng/mL 05/31/20 05/31/20 Range/Units 15:15 15:15 WBC (4.0-10.0) 10^3/uL RBC (4.1-5.3) 10^6/uL Hgb (11.5-15.3) g/dL Hct (37.0-47.0) % MCV (81-99) fL MCH (28.0-34.0) pg MCHC (30.0-36.0) g/dL RDW (12.1-15.1) % Plt Count (130-400) 10^3/cmm MPV (7.4-10.4) fL Neut % (Auto) % Lymph % (Auto) % [place] % (Auto) % Eos % (Auto) % Baso % (Auto) % Neut # (Auto) (1.8-7.7) 10^3/uL Lymph # (Auto) (0.8-4.8) 10^3/uL [place] # (Auto) (0.2-0.9) 10^3/uL Eos # (Auto) (0.0-0.8) 10^3/uL Baso # (Auto) (0.0-0.1) 10^3/uL Nucleated RBC % (auto) % Nucleated RBCs # /100WBC PT 13.00 (12.1-14.9) SECONDS INR 0.95 (0.8-1.2) APTT 41.8 H (23.9-36.7) SECONDS Fibrinogen (174-498) mg/dL D-Dimer (0-0.59) ug/mIFEU Sodium (136-145) mmol/L Potassium (3.5-5.1) mmol/L Chloride (98-107) mmol/L Carbon Dioxide (22-29) mmol/L Anion Gap (5-19) BUN (6-20) mg/dL Creatinine (0.5-0.9) mg/dL GFR Calculation (90-130) mL/min Glucose (65-115) mg/dL Calculated Osmolality (285-295) mOsm/kg Lactic Acid 1.5 (0.5-2.2) mmol/L Calcium (8.5-10.5) mg/dL Ferritin (15-150) ng/mL Total Bilirubin (0.15-1.2) mg/dL AST (0-32) U/L ALT (0-33) U/L Alkaline Phosphatase (35-105) IU/L C-Reactive Protein (0.0-4.9) mg/L Total Protein (6.6-8.7) g/dL Albumin (3.5-5.2) g/dL Globulin (1.3-4.6) g/dL Procalcitonin (0-0.5) ng/mL COVID Results: SARS-CoV-2 Antigen (Rapid) Negative (Negative) 03/22/20 09:55 03/22/20 SARS-CoV-2 RNA (RT-PCR) Not detected (NOT DETECTED) 05/30/20 14:17 05/30/20 Nasal/Oral Coronavirus 2019 PCR Not detected 01/27/20 10:25 01/27/20 Imaging Data CXR: Attestation: I personally reviewed and interpreted this imaging study as follows: Radiologist's impression: [address] [place] [address] XRay Report Signed Patient: Denisa Orourke Unit #: [id number] : 1975 Age/Sex: 44 / F ADM Date: 05/31/20 Loc: ER Room/Bed: Attending Dr: Ordering Provider/Ordering MD: Portia Monreal MD Date of Service: 05/31/20 Procedure(s): XR chest 1V portable [id number] Accession Number(s): [id number] Report Number: [id number] PROCEDURE INFORMATION: Exam: XR Chest, 1 View Exam date and time: 05/31/2020 2:59 PM Age: 44 years old Clinical indication: Shortness of breath; Additional info: Covid TECHNIQUE: Imaging protocol: XR of the chest Views: 1 view. COMPARISON: CR (CHEST, ) 05/30/2020 11:01 AM FINDINGS: Lungs: Unremarkable. No consolidation. Pleural space: Unremarkable. No pleural effusion. No pneumothorax. Heart/Mediastinum: Unremarkable. No cardiomegaly. Bones/joints: Unremarkable. XR/XR chest 1V portable [id number] IMPRESSION: No acute findings. 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 Documented by User: MAXI Almeida 05/31/20 21:33 HPI - COVID General: Chief Complaint: COVID symptoms Stated Complaint: TESTED FOR COVID YEST, RUNNING FEVER/INCR SYMPTOMS Time Seen by Provider: 05/31/20 14:24 COVID Results: SARS-CoV-2 Antigen (Rapid) Negative (Negative) 03/22/20 09:55 03/22/20 SARS-CoV-2 RNA (RT-PCR) Not detected (NOT DETECTED) 05/30/20 14:17 05/30/20 Nasal/Oral Coronavirus 2019 PCR Not detected 01/27/20 10:25 01/27/20 [facility] ED PFS: Medical History Deep vein thrombosis (DVT) of calf muscle vein of left lower extremity Dyshidrotic hand dermatitis Fibromyalgia GERD (gastroesophageal reflux disease) HTN (hypertension) Migraine without aura, not intractable, without status migrainosus PSVT (paroxysmal supraventricular tachycardia) Spinal stenosis, cervical region Suspected COVID-19 virus infection Vitamin B12 deficiency anemia Vitamin D deficiency Surgical History H/O colonoscopy 2018 - normal History of hysterectomy with bilateral oophorectomy History of radiofrequency ablation (RFA) procedure for cardiac arrhythmia Hx of appendectomy S/P carpal tunnel release S/P tubal ligation Family History Mother Atrial fibrillation Hypertension Social History Smoking and tobacco status: current every day smoker cigarettes Packs smoked per day: 0.5 Years cigarettes smoked: 30 Alcohol intake: current Alcohol intake frequency: 0-2 Drinks per Day Lives independently: Yes Household members: spouse and family Marital status: service: No Current occupational status: unemployed History of recent travel: No Current gender identity: Female Course ED course: Transfer of care from SALLY Mix. CTA PE protocol and CT abdomen pelvis revealed left lower lobe pulmonary artery pulmonary embolism without segmental occlusion, negative heart strain. CT abdomen and pelvis revealed severe pyelonephritis with inflammation surrounding the right kidney and extending to the right ureteral wall. Patient reports history of kidney infections and urinary tract infections with previous infection approximately 1 month prior, treated with Bactrim. She also has history of DVT with prescription of Xarelto but not able to afford medication. She has been without medication for approximately [address] scans discussed with the patient as well as serology testing. Plan of care discussed. Consultations: Consultation #1: Hospitalist, Dr Olivier - will evaluate patient in the ED Time: 18:15 Vital Signs: Vital signs: Vital Signs Temperature 102.9 F H 05/31/20 13:03 Pulse Rate 128 H 05/31/20 13:03 Respiratory Rate 18 05/31/20 18:49 Blood Pressure 127/87 05/31/20 13:03 Pulse Oximetry 98 05/31/20 18:49 MDM - COVID Lab Data Result diagrams: 05/31/20 15:15 05/31/20 15:15 Labs: Lab Results 05/31/20 05/31/20 05/31/20 Range/Units 15:15 15:15 15:15 WBC 2.7 L (4.0-10.0) 10^3/uL RBC 3.30 L (4.1-5.3) 10^6/uL Hgb 11.9 (11.5-15.3) g/dL Hct 34.1 L (37.0-47.0) % MCV 103.3 H (81-99) fL MCH 36.1 H (28.0-34.0) pg MCHC 34.9 (30.0-36.0) g/dL RDW 17.1 H (12.1-15.1) % Plt Count 37 L (130-400) 10^3/cmm MPV 11.1 H (7.4-10.4) fL Neut % (Auto) 78.9 % Lymph % (Auto) 10.0 % [place] % (Auto) 10.0 % Eos % (Auto) 0.0 % Baso % (Auto) 0.4 % Neut # (Auto) 2.13 (1.8-7.7) 10^3/uL Lymph # (Auto) 0.3 L (0.8-4.8) 10^3/uL [place] # (Auto) 0.3 (0.2-0.9) 10^3/uL Eos # (Auto) 0.0 (0.0-0.8) 10^3/uL Baso # (Auto) 0.0 (0.0-0.1) 10^3/uL Nucleated RBC % (auto) 0 % Nucleated RBCs # 0.0 /100WBC PT (12.1-14.9) SECONDS INR (0.8-1.2) APTT (23.9-36.7) SECONDS Fibrinogen 456 (174-498) mg/dL D-Dimer 3.22 H (0-0.59) ug/mIFEU Sodium 129 L (136-145) mmol/L Potassium 3.4 L (3.5-5.1) mmol/L Chloride 94 L (98-107) mmol/L Carbon Dioxide 20 L (22-29) mmol/L Anion Gap 18.4 (5-19) BUN 10 (6-20) mg/dL Creatinine 0.7 (0.5-0.9) mg/dL GFR Calculation 90.5 (90-130) mL/min Glucose 102 (65-115) mg/dL Calculated Osmolality 267 L (285-295) mOsm/kg Lactic Acid (0.5-2.2) mmol/L Calcium 8.3 L (8.5-10.5) mg/dL Ferritin 721 H (15-150) ng/mL Total Bilirubin 0.8 (0.15-1.2) mg/dL AST 124 H (0-32) U/L ALT 38 H (0-33) U/L Alkaline Phosphatase 103 (35-105) IU/L C-Reactive Protein 199.4 H (0.0-4.9) mg/L Total Protein 6.6 (6.6-8.7) g/dL Albumin 3.3 L (3.5-5.2) g/dL Globulin 3.3 (1.3-4.6) g/dL Procalcitonin 12.80 H (0-0.5) ng/mL 05/31/20 05/31/20 Range/Units 15:15 15:15 WBC (4.0-10.0) 10^3/uL RBC (4.1-5.3) 10^6/uL Hgb (11.5-15.3) g/dL Hct (37.0-47.0) % MCV (81-99) fL MCH (28.0-34.0) pg MCHC (30.0-36.0) g/dL RDW (12.1-15.1) % Plt Count (130-400) 10^3/cmm MPV (7.4-10.4) fL Neut % (Auto) % Lymph % (Auto) % [place] % (Auto) % Eos % (Auto) % Baso % (Auto) % Neut # (Auto) (1.8-7.7) 10^3/uL Lymph # (Auto) (0.8-4.8) 10^3/uL [place] # (Auto) (0.2-0.9) 10^3/uL Eos # (Auto) (0.0-0.8) 10^3/uL Baso # (Auto) (0.0-0.1) 10^3/uL Nucleated RBC % (auto) % Nucleated RBCs # /100WBC PT 13.00 (12.1-14.9) SECONDS INR 0.95 (0.8-1.2) APTT 41.8 H (23.9-36.7) SECONDS Fibrinogen (174-498) mg/dL D-Dimer (0-0.59) ug/mIFEU Sodium (136-145) mmol/L Potassium (3.5-5.1) mmol/L Chloride (98-107) mmol/L Carbon Dioxide (22-29) mmol/L Anion Gap (5-19) BUN (6-20) mg/dL Creatinine (0.5-0.9) mg/dL GFR Calculation (90-130) mL/min Glucose (65-115) mg/dL Calculated Osmolality (285-295) mOsm/kg Lactic Acid 1.5 (0.5-2.2) mmol/L Calcium (8.5-10.5) mg/dL Ferritin (15-150) ng/mL Total Bilirubin (0.15-1.2) mg/dL AST (0-32) U/L ALT (0-33) U/L Alkaline Phosphatase (35-105) IU/L C-Reactive Protein (0.0-4.9) mg/L Total Protein (6.6-8.7) g/dL Albumin (3.5-5.2) g/dL Globulin (1.3-4.6) g/dL Procalcitonin (0-0.5) ng/mL COVID Results: SARS-CoV-2 Antigen (Rapid) Negative (Negative) 03/22/20 09:55 03/22/20 SARS-CoV-2 RNA (RT-PCR) Not detected (NOT DETECTED) 05/30/20 14:17 05/30/20 Nasal/Oral Coronavirus 2019 PCR Not detected 01/27/20 10:25 01/27/[address] Abd/Pel: Radiologist's impression: [address] [address] [address] Scan Report Signed with Addenda Patient: Denisa Orourke Unit #: [id number] : 1975 Age/Sex: 44 / F ADM Date: 05/31/20 Loc: ER Room/Bed: Attending Dr: Ordering Provider/Ordering MD: Yoshi Pope Date of Service: 05/31/20 Procedure(s): CT angio chest w abd pel w con Accession Number(s): [id number] Report Number: [id number]/CT angio chest w abd pel w con THIS REPORT CONTAINS FINDINGS THAT MAY BE CRITICAL TO PATIENT CARE. The findings were verbally communicated via telephone conference with VALVE SETTER Denisa Guerra at 5:56 PM FERRYBOAT CAPTAIN on 05/31/2020. The findings were acknowledged and understood. Radiation Dose CTDIVOL = (mGy): DLP = 987.92 987.92 (mGy-cm) Addendum Dictated By: Trey Hines MD Addendum Signed By: Trey Hines MD Signed Date/Time: 05/31/201756 Addendum Cosigned By: PROCEDURE INFORMATION: Exam: CT Angiography Chest With Contrast Exam date and time: 05/31/2020 5:21 PM Age: 44 years old Clinical indication: Abdominal pain; Other: Elev d-dimer; Additional info: Elevated d-dimer TECHNIQUE: Imaging protocol: Computed tomographic angiography of the chest with intravenous contrast. 3D rendering (Not supervised by radiologist): MIP and/or 3D reconstructed images were created by the technologist. Radiation optimization: All CT scans at this facility use at least one of these dose optimization techniques: automated exposure control; mA and/or kV adjustment per patient size (includes targeted exams where dose is matched to clinical indication); or iterative reconstruction. Contrast material: OMNI 350; Contrast volume: 95 ml; Contrast route: INTRAVENOUS (IV); COMPARISON: CT angio chest PE protcl [id number] 03/22/2020 4:57 PM RADIATION DOSE METRICS: Total DLP (mGy-cm): 987.92 FINDINGS: Pulmonary arteries: Pulmonary embolus in the left lower lobe pulmonary artery with no segmental occlusion. Aorta: Unremarkable. No aortic aneurysm. No aortic dissection. Lungs: Unremarkable. No consolidation. No masses. Pleural space: Unremarkable. No pneumothorax. No pleural effusion. Heart: No right heart strain. Lymph nodes: Unremarkable. No enlarged lymph nodes. Bones/joints: Unremarkable. No acute fracture. Soft tissues: Unremarkable. IMPRESSION: 1. Pulmonary embolus in the left lower lobe pulmonary artery with no segmental occlusion. 2. No right heart strain. PROCEDURE INFORMATION: Exam: CT Abdomen And Pelvis With Contrast Exam date and time: 05/31/2020 5:21 PM Age: 44 years old Clinical indication: Abdominal pain; Other: Elev d-dimer; Additional info: Elevated d-dimer TECHNIQUE: Imaging protocol: Computed tomography of the abdomen and pelvis with intravenous contrast. Radiation optimization: All CT scans at this facility use at least one of these dose optimization techniques: automated exposure control; mA and/or kV adjustment per patient size (includes targeted exams where dose is matched to clinical indication); or iterative reconstruction. Contrast material: OMNI 350; Contrast volume: 95 ml; Contrast route: INTRAVENOUS (IV); COMPARISON: CT angio chest PE protcl [id number] 03/22/2020 4:57 PM RADIATION DOSE METRICS: Total DLP (mGy-cm): 987.92 FINDINGS: Liver: Severe fatty infiltration of the liver. Gallbladder and bile ducts: Normal. No calcified stones. No ductal dilation. Pancreas: Normal. No ductal dilation. Spleen: Normal. No splenomegaly. Adrenal glands: Normal. No mass. Kidneys and ureters: Multiple peripheral wedge-shaped hypodense right renal perfusion defects consistent with right pyelonephritis. Associated inflammation surrounding the right kidney extending inferiorly with thickening in the right ureteral wall consistent with significant urinary tract infection. One or more focal cortical defects in the left kidney, representing sequela from previous infection or infarction. Stomach and bowel: Unremarkable. No obstruction. No mucosal thickening. Appendix: Previous appendectomy. Intraperitoneal space: Unremarkable. No free air. No significant fluid collection. Vasculature: One or more calcified pelvic phleboliths. Lymph nodes: Unremarkable. No enlarged lymph nodes. Urinary bladder: Unremarkable as visualized. Reproductive: Status post hysterectomy. Bones/joints: Grade 1 anterior spondylolytic spondylolisthesis of L5 on S1. Soft tissues: Unremarkable. CT/CT angio chest w abd pel w con IMPRESSION: 1. Multiple peripheral wedge-shaped hypodense right renal perfusion defects consistent with right pyelonephritis. Associated inflammation surrounding the right kidney extending inferiorly with thickening in the right ureteral wall consistent with significant urinary tract infection. 2. One or more focal cortical defects in the left kidney, representing sequela from previous infection or infarction. 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
--- NOTE | 2020-05-31 14:58 | XRR_ITS ---
PROCEDURE INFORMATION: Exam: XR Chest, 1 View Exam date and time: 05/31/2020 2:59 PM Age: 44 years old Clinical indication: Shortness of breath; Additional info: Covid TECHNIQUE: Imaging protocol: XR of the chest Views: 1 view. COMPARISON: CR (CHEST, ) 05/30/2020 11:01 AM FINDINGS: Lungs: Unremarkable. No consolidation. Pleural space: Unremarkable. No pleural effusion. No pneumothorax. Heart/Mediastinum: Unremarkable. No cardiomegaly. Bones/joints: Unremarkable. XR/XR chest 1V portable [id number] IMPRESSION: No acute findings.
[2020-05-31] MEDS: lactated ringers 1,000 ML 150 ML IV (15:03)
[2020-05-31] MEDS: ondansetron 2 mg/ML SDV 2 mL 4 MG IVP (15:03)
[2020-05-31 15:38] LABS: Fibrinogen 456 mg/dL (174-498)
[2020-05-31 15:41] LABS: D Dimer 3.22 ug/mIFEU (0-0.59)
[2020-05-31 15:45] LABS: Basophils % 0.4 %; Hematocrit 34.1 % (37.0-47.0); Hemoglobin 11.9 g/dL (11.5-15.3); Lymphocytes # 0.3 10^3/uL (0.8-4.8); Mean Corpuscular HGB Conc 34.9 g/dL (30.0-36.0); Mean Corpuscular Hemoglobin 36.1 pg (28.0-34.0); Mean Corpuscular Volume 103.3 fL (81-99); Mean Platelet Volume 11.1 fL (7.4-10.4); Monocytes # 0.3 10^3/uL (0.2-0.9); Neutrophils # 2.13 10^3/uL (1.8-7.7); Neutrophils % 78.9 %; Nucleated Red Blood Cells % 0 %; Platelet Count 37 10^3/cmm (130-400); Red Cell Distribution Width 17.1 % (12.1-15.1); White Blood Count 2.7 10^3/uL (4.0-10.0)
[2020-05-31] MEDS: acetaminophen 500 mg Tablet 1000 MG PO (15:55)
[2020-05-31 16:02] LABS: Lactic Sepsis W/Reflex 1.5 mmol/L (0.5-2.2)
[2020-05-31 16:17] LABS: Slide Review Slide Review Perform
[2020-05-31 16:19] LABS: Alanine Aminotransferase 38 U/L (0-33); Albumin Level 3.3 g/dL (3.5-5.2); Alkaline Phosphatase 103 IU/L (35-105); Anion Gap 18.4 (5-19); Aspartate Amino Transferase 124 U/L (0-32); Blood Urea Nitrogen 10 mg/dL (6-20); C Reactive Protein 199.4 mg/L (0.0-4.9); Calcium 8.3 mg/dL (8.5-10.5); Carbon Dioxide 20 mmol/L (22-29); Chloride 94 mmol/L (98-107); Ferritin 721 ng/mL (15-150); Globulin 3.3 g/dL (1.3-4.6); Glomerular Filtration Rate 90.5 mL/min (90-130); Glucose 102 mg/dL (65-115); Osmolality Calculated 267 mOsm/kg (285-295); Potassium 3.4 mmol/L (3.5-5.1); Sodium 129 mmol/L (136-145); Total Bilirubin 0.8 mg/dL (0.15-1.2); Total Protein 6.6 g/dL (6.6-8.7)
--- NOTE | 2020-05-31 16:19 | CTR_ITS ---
PROCEDURE INFORMATION: Exam: CT Angiography Chest With Contrast Exam date and time: 05/31/2020 5:21 PM Age: 44 years old Clinical indication: Abdominal pain; Other: Elev d-dimer; Additional info: Elevated d-dimer TECHNIQUE: Imaging protocol: Computed tomographic angiography of the chest with intravenous contrast. 3D rendering (Not supervised by radiologist): MIP and/or 3D reconstructed images were created by the technologist. Radiation optimization: All CT scans at this facility use at least one of these dose optimization techniques: automated exposure control; mA and/or kV adjustment per patient size (includes targeted exams where dose is matched to clinical indication); or iterative reconstruction. Contrast material: OMNI 350; Contrast volume: 95 ml; Contrast route: INTRAVENOUS (IV); COMPARISON: CT angio chest PE protcl [id number] 03/22/2020 4:57 PM RADIATION DOSE METRICS: Total DLP (mGy-cm): 987.92 FINDINGS: Pulmonary arteries: Pulmonary embolus in the left lower lobe pulmonary artery with no segmental occlusion. Aorta: Unremarkable. No aortic aneurysm. No aortic dissection. Lungs: Unremarkable. No consolidation. No masses. Pleural space: Unremarkable. No pneumothorax. No pleural effusion. Heart: No right heart strain. Lymph nodes: Unremarkable. No enlarged lymph nodes. Bones/joints: Unremarkable. No acute fracture. Soft tissues: Unremarkable. IMPRESSION: 1. Pulmonary embolus in the left lower lobe pulmonary artery with no segmental occlusion. 2. No right heart strain. PROCEDURE INFORMATION: Exam: CT Abdomen And Pelvis With Contrast Exam date and time: 05/31/2020 5:21 PM Age: 44 years old Clinical indication: Abdominal pain; Other: Elev d-dimer; Additional info: Elevated d-dimer TECHNIQUE: Imaging protocol: Computed tomography of the abdomen and pelvis with intravenous contrast. Radiation optimization: All CT scans at this facility use at least one of these dose optimization techniques: automated exposure control; mA and/or kV adjustment per patient size (includes targeted exams where dose is matched to clinical indication); or iterative reconstruction. Contrast material: OMNI 350; Contrast volume: 95 ml; Contrast route: INTRAVENOUS (IV); COMPARISON: CT angio chest PE protcl [id number] 03/22/2020 4:57 PM RADIATION DOSE METRICS: Total DLP (mGy-cm): 987.92 FINDINGS: Liver: Severe fatty infiltration of the liver. Gallbladder and bile ducts: Normal. No calcified stones. No ductal dilation. Pancreas: Normal. No ductal dilation. Spleen: Normal. No splenomegaly. Adrenal glands: Normal. No mass. Kidneys and ureters: Multiple peripheral wedge-shaped hypodense right renal perfusion defects consistent with right pyelonephritis. Associated inflammation surrounding the right kidney extending inferiorly with thickening in the right ureteral wall consistent with significant urinary tract infection. One or more focal cortical defects in the left kidney, representing sequela from previous infection or infarction. Stomach and bowel: Unremarkable. No obstruction. No mucosal thickening. Appendix: Previous appendectomy. Intraperitoneal space: Unremarkable. No free air. No significant fluid collection. Vasculature: One or more calcified pelvic phleboliths. Lymph nodes: Unremarkable. No enlarged lymph nodes. Urinary bladder: Unremarkable as visualized. Reproductive: Status post hysterectomy. Bones/joints: Grade 1 anterior spondylolytic spondylolisthesis of L5 on S1. Soft tissues: Unremarkable. CT/CT angio chest w abd pel w con IMPRESSION: 1. Multiple peripheral wedge-shaped hypodense right renal perfusion defects consistent with right pyelonephritis. Associated inflammation surrounding the right kidney extending inferiorly with thickening in the right ureteral wall consistent with significant urinary tract infection. 2. One or more focal cortical defects in the left kidney, representing sequela from previous infection or infarction. Radiation Dose CTDIVOL = (mGy): DLP = 987.92~987.92 (mGy-cm)
[2020-05-31] MEDS: HYDROmorphone 1 mg/mL INJ 1 mL 0.5 MG IVP (16:40)
[2020-05-31] MEDS: iohexol 350 mg/mL 100 mL Btl IV (17:33)
[2020-05-31] MEDS: sodium chloride 0.9% 1,000 ML 999 ML IV (17:33)
[2020-05-31] MEDS: morphine 4 mg/mL SDV 1 mL 2 MG IVP (18:49)
[2020-05-31 18:50] LABS: INR 0.95 (0.8-1.2)
[2020-05-31 18:52] LABS: Partial Thromboplastin Time 41.8 SECONDS (23.9-36.7)
[2020-05-31 19:02] LABS: Add Urine Microscopic? YES; Bilirubin Urine Neg (Negative); Blood Urine 2+ (Negative); Glucose Urine UA Norm (Normal); Ketones Urine 1+ (Negative); Leukocyte Esterase Urine 1+ (Negative); Nitrate Urine Negative (Negative); Protein Urine 1+ (Negative); Specific Gravity, Urine 1.005 (1.005-1.030); Urine Appearance Hazy (CLEAR); Urine Color Dark Yellow (Yellow); Urobilinogen Urine 4 mg/dL (Negative); pH Urine 5 (5-7)
--- NOTE | 2020-05-31 19:02 | P.HP_ITS ---
Providers/Chief Complaint Primary Care Provider: RODERICK Gonzales Chief Complaint: TESTED FOR COVID YEST, RUNNING FEVER/INCR SYMPTOMS History of Present Illness Denisa Orourke is a 44 year old female past medical history of left lower extre mity DVT, bilateral PEs on Xarelto, diastolic heart failure, history of fibromyalgia, chronic pain, history of S4-S5 fracture, history of alcohol abuse, who presents to [facility] due to complaints of fevers, nausea, vomiting, bilateral flank pain and abdominal pain, cough. Patient states that her symptoms started a few days ago, with a persistent cough, high fevers, nausea, vomiting, bilateral flank pain, abdominal pain. Patient states that she had high fevers, fatigue, malaise, persistent nausea, vomiting, inability to keep down liquids, denies dysuria, denies hematuria, denies being , denies a history of gonorrhea chlamydia. Patient tells me that her pain is all over her abdomen, but especially around the right and left flank. Patient presented to the ER yesterday with her symptomatology, Covid tested, rapid negative, PT CR has come back negative. Patient tells me that she has been tested for Covid 3 times already. She tells me that she comes back to the ER today because her symptoms have persisted, with severe nausea, vomiting, high fevers, poor appetite, fatigue, malaise, severe generalized abdominal pain. In the emergency room patient was found to have a a left lower lobe pulmonary emboli, which is chronic in nature, she is on Xarelto, pulmonary emboli on the right have resolved. Patient tells me that she takes Xarelto as prescribed, however she has not picked up up this prescription in 2 weeks, but is adamant she uses it as outpatient. She was also found to have right pyelonephritis, with evidence of chronic scarring of the right kidney with evidence of previous infection/infarction. Patient tells me that in the last year she has had mu ltiple kidney infections, she has had multiple admissions for cystitis and pyelonephritis and sepsis, requiring IV antibiotic therapy. In the ER she met sepsis criteria due to leukopenia, fevers, tachycardia, elevated inflammatory markers pro-Artur, CRP, source of infection right pyelonephritis. Temperature 102.9, heart rate 128, sinus tachycardia, 98% on room air, blood pressure 127/87, respiratory rate 18. Review of Systems Const: Reports: fever(s), chills, change in appetite, fatigue and malaise Eyes: Denies: change in vision or blurry vision ENMT: Denies: nasal congestion Resp: Denies: dyspnea, productive cough, non-productive cough or wheezing GI: Reports: abdominal pain, nausea and vomiting; Denies: hematemesis, diarrhea, constipation, hematochezia or melena : Reports: flank pain; Denies: dysuria or urinary frequency Musc: Reports: back pain; Denies: neck pain Skin/Breast: Denies: rash Neuro: Denies: headache(s), dizziness or vertigo Psych: Denies: anxiety or depression Endo: Denies: polyuria or polydipsia Medications/Allergies Home Medications Medication Instructions Recorded Confirmed Last Taken Type cetirizine [Zyrtec] 10 mg PO BID 01/04/20 05/31/20 05/30/20 History omeprazole magnesium [Prilosec OTC] 20 mg PO DAILY 02/25/20 05/31/20 04/06/20 History diphenhydramine HCl [Benadryl 25 mg PO PRN 03/22/20 05/31/20 Unknown History Allergy] thiamine mononitrate (vit B1) 100 mg PO DAILY #30 tab 03/24/20 05/31/20 05/30/20 Rx [Vitamin B-1 (mononitrate)] rivaroxaban 15 mg tablet 15 mg PO BID 21 Days #42 tab 03/26/20 05/31/20 04/07/20 Rx Vitamin B-12 2 tab PO DAILY 04/08/20 05/31/20 Unknown History albuterol sulfate 2 inh INHALATION Q6H PRN #1 each 05/30/20 05/31/20 Unknown Rx ondansetron HCl [Zofran] 4 mg PO Q8H #20 tab 05/30/20 05/31/20 05/31/20 03:00 Rx acetaminophen [Tylenol Extra 1,000 mg PO PRN 05/31/20 05/31/20 05/30/20 History Strength] folic acid 800 mcg PO DAILY 05/31/20 05/31/20 05/30/20 History multivitamin [Multiple Vitamins] 1 tab PO DAILY 05/31/20 05/31/20 Unknown History Allergies Allergy/AdvReac Type Severity Reaction Status Date / Time methocarbamol [From Robaxin] Allergy Mild ADR-Itching Verified 05/30/20 10:41 acetaminophen [From Percocet] Allergy ALGY-Swell Verified 05/30/20 10:41 Lip/Tongue/Throat azithromycin [From Zithromax] Allergy ADR-Itching Verified 05/30/20 10:41 ciprofloxacin [From Cipro] Allergy ALGY-Rash Verified 05/30/20 10:41 clindamycin [From Cleocin] Allergy ALGY-Rash Verified 05/30/20 10:41 codeine Allergy ADR-Itching Verified 05/30/20 10:41 cyclobenzaprine Allergy ADR-Swelling Verified 05/30/20 10:41 [From Flexeril] of the Eye Egg Derived Allergy ADR-Vomitin Verified 05/30/20 10:41 g hydrocodone Allergy ALGY-Swell Verified 05/30/20 10:41 Lip/Tongue/Throat loratadine [From Claritin] Allergy Unknown Verified 05/30/20 10:41 oxycodone [From Percocet] Allergy ALGY-Swell Verified 05/30/20 10:41 Lip/Tongue/Throat tizanidine Allergy ADR-Itching Verified 05/30/20 10:41 tramadol Allergy ALGY-Rash Verified 05/30/20 10:41 PFSH Acute PFSH: Medical History Deep vein thrombosis (DVT) of calf muscle vein of left lower extremity Dyshidrotic hand dermatitis Fibromyalgia GERD (gastroesophageal reflux disease) HTN (hypertension) Migraine without aura, not intractable, without status migrainosus PSVT (paroxysmal supraventricular tachycardia) Spinal stenosis, cervical region Suspected COVID-19 virus infection Vitamin B12 deficiency anemia Vitamin D deficiency Surgical History H/O colonoscopy 2018 - normal History of hysterectomy with bilateral oophorectomy History of radiofrequency ablation (RFA) procedure for cardiac arrhythmia Hx of appendectomy S/P carpal tunnel release S/P tubal ligation Family History Mother Atrial fibrillation Hypertension Social History Smoking and tobacco status: current every day smoker cigarettes Packs smoked per day: 0.5 Years cigarettes smoked: 30 Alcohol intake: current Alcohol intake frequency: 0-2 Drinks per Day Lives independently: Yes Household members: spouse and family Marital status: service: No Current occupational status: unemployed History of recent travel: No Current gender identity: Female Female Reproductive History: Date of last menstrual period: 07/31/10 Vitals/I&O/Wt Last Vital Signs Temp 102.9 F H 05/31/20 13:03 Pulse 128 H 05/31/20 13:03 Resp 18 05/31/20 18:49 BP 127/87 05/31/20 13:03 Pulse Ox 98 05/31/20 18:49 Weight last 48 hrs Weight 65.771 kg Physical Exam Const: COMMON NORMALS: no acute distress and patient oriented x3 GENERAL APPEARANCE: cooperative and comfortable HENMT: COMMON NORMALS: normocephalic HEAD & SCALP: normocephalic Eye: COMMON NORMALS: Equal, round and reactive pupils present and EOMs intact bilaterally GENERAL EYE: appearance normal, both eyes and all related structures PUPIL: Yes Equal, round and reactive pupils present Neck/C-Spine: COMMON NORMALS: full ROM, no lymphadenopathy, no JVD and Thyroid normal THYROID: Thyroid normal Lymph: LYMPHATIC: no lymphadenopathy noted Resp: COMMON NORMALS: normal respiratory effort, No retractions, No use of accessory muscles and clear to auscultation bilaterally AUSCULTATION: clear to auscultation bilaterally Cardio: COMMON NORMALS: no JVD, regular rate, regular rhythm, S1 normal heart sound present, S2 normal heart sound present, No gallops present (Cardio), No clicks present (Cardio) and No murmurs present (Cardio) RATE: regular rate RHYTHM: regular rhythm HEART SOUNDS: S1 normal heart sound present and S2 normal heart sound present GI: COMMON NORMALS: Normal to inspection, nondistended, normoactive bowel sounds present, Soft to palpation, non-tender and No hepatosplenomegaly present PALPATION: Yes Soft to palpation, Yes Tenderness to palpation present (GI) Details: LLQ, RLQ, LUQ and RUQ, No Guarding due to palpation present (GI) and No Rigid due to palpation Back/Pelvis: GENERAL BACK: Yes CVA tenderness CVA tenderness: bilateral Extremity: COMMON NORMALS: normal to inspection, full ROM and no pedal edema Neuro: COMMON NORMALS: patient oriented x3, CN's II-XII intact bilaterally, moves all extremities and no focal motor deficits Psych: COMMON NORMALS: mental status grossly normal, Normal thought process present and cooperative THOUGHT PROCESS: Normal thought process present Data : 05/31/20 15:15 05/31/20 15:15 Micro: Microbiology 05/31/20 15:15 Blood Culture - Preliminary Blood SPECIMEN COLLECTED A&P Assessment and plan (1) Pyelonephritis of right kidney: -CT scan of the abdomen pelvis showed: Multiple peripheral wedge-shaped hypodense right renal perfusion defects consistent with right pyelonephritis. Associated inflammation surrounding the right kidney extending inferiorly with thickening in the right ureteral wall consistent with significant urinary tract infection. 2. One or more focal cortical defects in the left kidney, representing sequela from previous infection or infarction. -White blood cell count 2.7, platelet count 37, D-dimer 3.22 lack, lactic acid 1.5, ferritin 721, CRP 199.4, pro-Artur 12.8 -Temperature 102.9, pulse 120, blood pressure 127/87 -Right pyelonephritis with sepsis -No obstructive uropathy seen -Clinical and radiographic evidence of recurrent pyelonephritis and UTIs Plan: -Admit to general medical floors -LR at 100 cc an hour -Tylenol for fevers -Given history of recurrent UTIs and pyelonephritis and sepsis, start Primaxin for antibiotic coverage -Monitor blood pressures closely -Consider discharging the patient on chronic suppressive antibiotics, follow-up with Dr. Ksier -I was told that the patient was tested for Covid yesterday, she tested negative, I see that patient's rapid was negative, but I cannot see a PCR, will reorder the PCR given her cough, fevers, elevated D-dimer, elevated ferritin Status: Acute (2) Sepsis: Status: Acute (3) Leukopenia: -Currently multifactorial, related to sepsis, alcohol consumption -We will order peripheral smear Status: Acute (4) Thrombocytopenia: -Currently multifactorial related to sepsis, severe infection, alcohol abuse, fatty liver disease -We will do a peripheral smear -We will hold all anticoagulants, all heparin derivatives given severe thrombocytopenia -In addition I am holding patient's Xarelto due to concerns for life-threatening bleeding -We will do right upper quadrant ultrasound -On last admission, she had an extensive work-up for thrombocytopenia, her hepatitis panel was negative, peripheral smear showed leukopenia with relative neutropenia, macrocytosis with hypersegmented neutrophils, thrombocytopenia, no blasts Status: Acute (5) UTI (urinary tract infection): Status: Acute (6) Deep vein thrombosis (DVT) of calf muscle vein of left lower extremity: Status: Acute Qualifiers: Chronicity: acute Qualified Code(s): I82.462 - Acute embolism and t hrombosis of left calf muscular vein (7) Vitamin B12 deficiency anemia: Status: Acute (8) PSVT (paroxysmal supraventricular tachycardia): -Status post loop recorder, removed Status: Acute (9) Transaminitis: -Etiology is multifactorial related to alcohol use, severe fatty liver disease -The question is is that does she have alcohol abuse and/or MUSTAFA -We will do LATASHA, ESR, AMA -Patient will need to be referred to a senior military analyst for liver biopsy Status: Acute (10) Hyponatremia: -Multifactorial related to dehydration from nausea vomiting, alcohol abuse -Continue LR Status: Acute (11) Alcohol abuse: -Has hyponatremia, hypokalemia, transaminitis, evidence of beers Poto bud -CT of the liver shows severe fatty infiltration of the liver -Last alcohol drink was 3 days ago PLAN: -[facility] protocol -Alcohol level -Continue B12, folate, thiamine Status: Acute (12) Pulmonary emboli: -CTA on 03/24/2020 showed : Pulmonary arteries: Examination is positive for pulmonary embolism/pulmonary arterial thrombus. Nonocclusive string thrombus begins in the distal left main pulmonary arteries extending into the bilateral lower lobes segmental vessels, proximal left upper lobe segmental, and proximal lingula segmental vessels without occlusion. Nonocclusive string thrombus begins in the distal right main pulmonary artery and extends into the proximal segmental vessels of the right upper lobe, right middle lobe, and right lower lobe. No evidence for complete pulmonary arterial occlusion. Again no visible evidence of complete occlusion of the pulmonary arterial vessels involved. Aorta: The thoracic aorta is nonaneurysmal. No visible intimal flap or dissection. Minimal arterial sclerotic disease. -CTA on 05/31/2020 showed: -Pulmonary arteries: Pulmonary embolus in the left lower lobe pulmonary artery with no segmental occlusion. -echo on 02/2020 1-Normal left ventricular cavity size. Normal left ventricular systolic function. No regional wall motion abnormalities. Left ventricular ejection fraction is estimated at 60 %. Grade I/IV diastolic dysfunction (abnormal relaxation filling pattern), normal to mildly elevated filling pressures. 2-Structurally normal mitral valve without significant stenosis or prolapse. There is no mitral regurgitation. 3-Moderate aortic valve calcification. No aortic valve stenosis. Trace aortic valve regurgitation. 4-Trace to mild tricuspid valve regurgitation. 5-There is no pericardial effusion. 6-Pulmonary artery systolic pressure is within normal limits. 7-No significant change since the prior echocardiogram study of 06/22/2015. -today platelet count is 37,000 -Patient is on Xarelto as outpatient, adamant that she uses as prescribed, has been without it for the last 2 weeks as she has not picked up prescription -Comparing both CTAs, it looks like the pulmonary emboli on the right have resolved, pulmonary emboli on the left have also nearly completely resolved, but has a persistent PE in the left lower lobe -Patient's etiology of pulmonary emboli is unclear, no history of surgeries, no family history of hypercoagulability, will do ESR, LATASHA, hypercoagulable panel PLAN: -I do not see any evidence of any new pulmonary emboli -Given her thrombocytopenia, will hold Xarelto -Reassess platelet count tomorrow -Continue SCDs -will do ESR, LATASHA, hypercoagulable panel -Patient advised of risks and benefits, voiced understanding, agreed to proceed Status: Acute Attestations Medical Necessity Statement*: Patient requires hospitalization, inpatient, greater than 2 midnights, pyelonephritis right kidney, sepsis Coding Level of Care Code Acute [facility] for [facility] Diagnoses Pyelonephritis of right kidney N12 Sepsis A41.9 Leukopenia D72.819 Thrombocytopenia D69.6 UTI (urinary tract infection) N39.0 Deep vein thrombosis (DVT) of calf muscle vein of left lower extremity I82.462 Chronicity: acute Vitamin B12 deficiency anemia D51.9 PSVT (paroxysmal supraventricular tachycardia) I47.1 Transaminitis R74.01 Hyponatremia E87.1 Alcohol abuse F10.10 Pulmonary emboli I26.99
[2020-05-31 19:05] LABS: Bacteria Urine 4+ /hpf; Mucus Urine 2+ /hpf
[2020-05-31 19:06] LABS: WBC Urine 80-100 /hpf (0-5)
[2020-05-31] MEDS: ketorolac 30 mg/mL INJ IVP (20:46)
[2020-05-31 21:45] LABS: HCG Qualitative Urine. Negative (Negative)
[2020-05-31 21:57] LABS: Alcohol Level < 10 mg/dL (0-10)
[2020-05-31] MEDS: lactated ringers 1,000 ML 100 ML IV (22:16)
[2020-05-31 22:39] LABS: Erythrocyte Sedimentation Rate 47 mm/hr (0-15)
[2020-05-31 22:44] LABS: Lactic Sepsis W/Reflex 3.2 mmol/L (0.5-2.2)
[2020-06-01] VITALS (14 sets, daily range): BP systolic 90–149; BP diastolic 60–98; PULSE 79–131; RESP 14–44; TEMP 36.6–36.9; O2SAT 90–100
[2020-06-01 00:07] LABS: Reflex Lactate Order REFLEX LACTIC ORDERD
[2020-06-01 01:05] LABS: Lactic Acid level (Lactate) 1.4 mmol/L (0.5-2.2)
[2020-06-01] MEDS: acetaminophen 325 mg Tablet 650 MG PO (01:33)
[2020-06-01] MEDS: LORazepam 2 mg Tablet PO (01:33)
[2020-06-01] MEDS: HYDROmorphone 1 mg/mL INJ 1 mL 0.4 MG IVP (01:42)
[2020-06-01] MEDS: ondansetron 2 mg/ML SDV 2 mL 4 MG IVP ×2 (01:43→12:27)
[2020-06-01] MEDS: sodium chloride 0.9% 1,000 ML 75 ML IV ×2 (01:45→13:38)
--- NOTE | 2020-06-01 04:38 | PC.NURSE ---
appx. 0300 pt in bed shaking uncontrollably, pt stated this happens before a fever comes on, temp 99.5 up from 98.5, did CIWA assessment and was 15 up from 2, gave tylenol and ativan, shaking improved, notified Dr Kovacs, no new orders at this time, continue to monitor
[2020-06-01 05:41] LABS: INR 0.97 (0.8-1.2)
[2020-06-01 05:42] LABS: Hematocrit 28.4 % (37.0-47.0); Lymphocytes # 0.2 10^3/uL (0.8-4.8); Lymphocytes % 10.2 %; Mean Corpuscular HGB Conc 35.2 g/dL (30.0-36.0); Mean Corpuscular Hemoglobin 36.6 pg (28.0-34.0); Monocytes # 0.2 10^3/uL (0.2-0.9); Monocytes % 10.7 %; Neutrophils # 1.46 10^3/uL (1.8-7.7); Nucleated Red Blood Cells % 0 %; Positive C 1; Red Blood Count 2.73 10^6/uL (4.1-5.3); Red Cell Distribution Width 17.1 % (12.1-15.1); White Blood Count 1.9 10^3/uL (4.0-10.0)
[2020-06-01 05:57] LABS: Platelet Count 28 10^3/cmm (130-400)
[2020-06-01 06:14] LABS: Alanine Aminotransferase 49 U/L (0-33); Albumin Level 2.5 g/dL (3.5-5.2); Alkaline Phosphatase 78 IU/L (35-105); Anion Gap 14.4 (5-19); Aspartate Amino Transferase 168 U/L (0-32); Blood Urea Nitrogen 12 mg/dL (6-20); Calcium 7.9 mg/dL (8.5-10.5); Carbon Dioxide 21 mmol/L (22-29); Chloride 99 mmol/L (98-107); Glomerular Filtration Rate 77.6 mL/min (90-130); Glucose 88 mg/dL (65-115); Magnesium 1.5 mg/dL (1.7-2.3); Osmolality Calculated 271 mOsm/kg (285-295); Phosphorus 3.1 mg/dL (2.5-4.5); Potassium 3.4 mmol/L (3.5-5.1); Sodium 131 mmol/L (136-145); Thyroid Stimulating Hormone 1.48 uIU/mL (0.27-4.20); Total Protein 5.5 g/dL (6.6-8.7)
[2020-06-01 06:22] LABS: Estmated Average Glucose 82; Hemoglobin A1C 4.5 % (4.0-6.0)
[2020-06-01 06:33] LABS: Chol HDL Ratio 3.42 mg/dL (0.0-4.40); Cholesterol 82 mg/dL (0-200); HDL Cholesterol 24 mg/dL (60-100); LDL Cholesterol Calculated 30 mg/dL (50-129); LDL HDL Ratio 1.25 RATIO (0.00-3.22); Triglycerides 139 mg/dL (0-150)
[2020-06-01] MEDS: folic acid 1 mg Tablet PO (09:10)
[2020-06-01] MEDS: cetirizine 10 mg Tablet PO ×2 (09:10→19:57)
[2020-06-01] MEDS: thiamine 100 mg Tablet PO (09:10)
[2020-06-01] MEDS: multivitamin therapeutic Tablet 1 TAB PO (09:10)
[2020-06-01] MEDS: pantoprazole DR 40 mg Tablet PO (09:10)
[2020-06-01 10:43] LABS: LAB Peripheral Smear Sent for Review
--- NOTE | 2020-06-01 16:35 | PM.PN ---
Subjective Subjective: Interval history: 44-year-old female with a past medical history significant for PSVT status post ablation, hypertension, fibromyalgia, gastroesophageal reflux disease, tobacco abuse, chronic alcoholism, LLE DVT on xarelto who presented to the ER with nausea vomiting and bilateral flank pain. Laboratory workup on arrival showed a WBC of 1.9, hemoglobin of 10.0, hematocrit of 28.4 and a platelet count of 28. imaging studies included a chest x-ray which showed mildly hyperaerated lungs consistent with deep inspiratory effort versus reactive airway disease. Right upper quadrant ultrasound was performed which showed fatty infiltration of the liver. CT angio of chest abdomen and pelvis showed multiple peripheral wedge-shaped hypodense right renal pre fusion defects consistent with right pyelonephritis. Inflammation surrounding the right kidney extended inferiorly along the right ureteral wall. pulmonary embolism in the left lower lobe pulmonary artery with no segmental occlusion. No right heart strain. Patient was started on IV rocephin. Found to have escherichia coli uti as well as gram negative rods in blood. Vitals/I&O/Wt Last Vital Signs Temp 97.9 F 06/01/20 12:00 Pulse 114 H 06/01/20 16:00 Resp 18 06/01/20 16:00 BP 108/79 06/01/20 16:00 Pulse Ox 100 06/01/20 14:00 06/01/20 06/01/20 06/01/20 06:59 14:59 22:59 Intake Total 2265.667 / 2765.667 1711.25 / 1711.25 Output Total 450 / 450 Balance 1815.667 / 2315.667 1711.25 / 1711.25 Weight last 48 hrs Weight 65.771 kg Physical Exam Const: COMMON NORMALS: no acute distress and patient oriented x3 GENERAL APPEARANCE: cooperative and comfortable HENMT: COMMON NORMALS: normocephalic HEAD & SCALP: normocephalic Eye: COMMON NORMALS: Equal, round and reactive pupils present and EOMs intact bilaterally GENERAL EYE: appearance normal, both eyes and all related structures PUPIL: Yes Equal, round and reactive pupils present Neck/C-Spine: COMMON NORMALS: full ROM, no lymphadenopathy, no JVD and Thyroid normal THYROID: Thyroid normal Lymph: LYMPHATIC: no lymphadenopathy noted Resp: COMMON NORMALS: normal respiratory effort, No retractions, No use of accessory muscles and clear to auscultation bilaterally AUSCULTATION: clear to auscultation bilaterally Cardio: COMMON NORMALS: no JVD, regular rate, regular rhythm, S1 normal heart sound present, S2 normal heart sound present, No gallops present (Cardio), No clicks present (Cardio) and No murmurs present (Cardio) RATE: regular rate RHYTHM: regular rhythm HEART SOUNDS: S1 normal heart sound present and S2 normal heart sound present GI: COMMON NORMALS: Normal to inspection, nondistended, normoactive bowel sounds present, Soft to palpation, non-tender and No hepatosplenomegaly present PALPATION: Yes Soft to palpation, Yes Tenderness to palpation present (GI), No Guarding due to palpation present (GI), No Rigid due to palpation and Yes No hepatosplenomegaly present : BLADDER/KIDNEY EXAM: Yes CVA tenderness Back/Pelvis: GENERAL BACK: Yes CVA tenderness CVA tenderness: bilateral Extremity: COMMON NORMALS: normal to inspection, full ROM and no pedal edema Neuro: COMMON NORMALS: patient oriented x3, CN's II-XII intact bilaterally, moves all extremities and no focal motor deficits Psych: COMMON NORMALS: mental status grossly normal, Normal thought process present and cooperative THOUGHT PROCESS: Normal thought process present Data : 06/01/20 04:43 06/01/20 04:43 Micro: Microbiology 05/31/20 15:15 Blood Culture - Preliminary Blood Gram Negative Rods 05/31/20 00:39 Blood Culture - Preliminary Blood SPECIMEN COLLECTED A&P Assessment and plan (1) Pyelonephritis of right kidney: -CT scan of the abdomen pelvis showed: Multiple peripheral wedge-shaped hypodense right renal perfusion defects consistent with right pyelonephritis. Associated inflammation surrounding the right kidney extending inferiorly with thickening in the right ureteral wall consistent with significant urinary tract infection. 2. One or more focal cortical defects in the left kidney, representing sequela from previous infection or infarction. -White blood cell count 2.7, platelet count 37, D-dimer 3.22 lack, lactic acid 1.5, ferritin 721, CRP 199.4, pro-Artur 12.8 -Temperature 102.9, pulse 120, blood pressure 127/87 -Right pyelonephritis with sepsis -No obstructive uropathy seen -Clinical and radiographic evidence of recurrent pyelonephritis and UTIs Plan: Continue current regimen Continue IV Rocehin E-coli growing in Urine Blood culture - gram negative organism Status: Acute (2) Sepsis: Status: Acute (3) Leukopenia: -Currently multifactorial, related to sepsis, alcohol consumption -Will consider consultation with hematology Status: Acute (4) Thrombocytopenia: -Currently multifactorial related to sepsis, severe infection, alcohol abuse, fatty liver disease - Holding anticoagulation due to worsening today - Will likely need consultaton with hematology - Repeat CBC in am Status: Acute (5) UTI (urinary tract infection): Status: Acute (6) Deep vein thrombosis (DVT) of calf muscle vein of left lower extremity: Status: Acute Qualifiers: Chronicity: acute Qualified Code(s): I82.462 - Acute embolism and thrombosis of left calf muscular vein (7) Vitamin B12 deficiency anemia: Status: Acute (8) PSVT (paroxysmal supraventricular tachycardia): -Status post loop recorder, removed Status: Acute (9) Transaminitis: -Etiology is multifactorial related to alcohol use, severe fatty liver disease -The question is is that does she have alcohol abuse and/or MUSTAFA -We will do LATASHA, ESR, AMA -Patient will need to be referred [facility] for liver biopsy Status: Acute (10) Hyponatremia: -Multifactorial related to dehydration from nausea vomiting, alcohol abuse -Continue LR Status: Acute (11) Alcohol abuse: -Has hyponatremia, hypokalemia, transaminitis, evidence of beers Poto bud -CT of the liver shows severe fatty infiltration of the liver -Last alcohol drink was 3 days ago PLAN: -[facility] protocol -Alcohol level -Continue B12, folate, thiamine Status: Acute (12) Pulmonary emboli: -CTA on 03/24/2020 showed : Pulmonary arteries: Examination is positive for pulmonary embolism/pulmonary arterial thrombus. Nonocclusive string thrombus begins in the distal left main pulmonary arteries extending into the bilateral lower lobes segmental vessels, proximal left upper lobe segmental, and proximal lingula segmental vessels without occlusion. Nonocclusive string thrombus begins in the distal right main pulmonary artery and extends into the proximal segmental vessels of the right upper lobe, right middle lobe, and right lower lobe. No evidence for complete pulmonary arterial occlusion. Again no visible evidence of complete occlusion of the pulmonary arterial vessels involved. Aorta: The thoracic aorta is nonaneurysmal. No visible intimal flap or dissection. Minimal arterial sclerotic disease. -CTA on 05/31/2020 showed: -Pulmonary arteries: Pulmonary embolus in the left lower lobe pulmonary artery with no segmental occlusion. -echo on 02/2020 1-Normal left ventricular cavity size. Normal left ventricular systolic function. No regional wall motion abnormalities. Left ventricular ejection fraction is estimated at 60 %. Grade I/IV diastolic dysfunction (abnormal relaxation filling pattern), normal to mildly elevated filling pressures. 2-Structurally normal mitral valve without significant stenosis or prolapse. There is no mitral regurgitation. 3-Moderate aortic valve calcification. No aortic valve stenosis. Trace aortic valve regurgitation. 4-Trace to mild tricuspid valve regurgitation. 5-There is no pericardial effusion. 6-Pulmonary artery systolic pressure is within normal limits. 7-No significant change since the prior echocardiogram study of 06/22/2015. -today platelet count is 37,000 -Patient is on Xarelto as outpatient, adamant that she uses as prescribed, has been without it for the last 2 weeks as she has not picked up prescription -Comparing both CTAs, it looks like the pulmonary emboli on the right have resolved, pulmonary emboli on the left have also nearly completely resolved, but has a persistent PE in the left lower lobe -Patient's etiology of pulmonary emboli is unclear, no history of surgeries, no family history of hypercoagulability, will do ESR, LATASHA, hypercoagulable panel PLAN: - Worsening thrombocytopenia - May have to consider IVC filter placement - Will need to discuss with radiologist - Hematology consult Status: Acute Attestations Medical Necessity Statement*: With ongoing sepsis, worsening thrombocytopenia, leukopenia and possible new pulmonary embolism patient will require further hospitalization. Time Spent in Patient Care: Greater than 35 minutes Coding Level of Care Code Acute [facility] for [facility] Fwd Diagnoses Pyelonephritis of right kidney N12 Sepsis A41.9 Leukopenia D72.819 Thrombocytopenia D69.6 UTI (urinary tract infection) N39.0 Deep vein thrombosis (DVT) of calf muscle vein of left lower extremity I82.462 Chronicity: acute Vitamin B12 deficiency anemia D51.9 PSVT (paroxysmal supraventricular tachycardia) I47.1 Transaminitis R74.01 Hyponatremia E87.1 Alcohol abuse F10.10 Pulmonary emboli I26.99
--- NOTE | 2020-06-01 17:00 | PC.RESP ---
Smoking Cessation information sent to patient.
[2020-06-01] MEDS: morphine 4 mg/mL SDV 1 mL 2 MG IVP (21:37)
[2020-06-02] VITALS (12 sets, daily range): BP systolic 106–123; BP diastolic 69–93; PULSE 80–111; RESP 16–26; TEMP 36.6–38.8; O2SAT 91–100
[2020-06-02] MEDS: morphine 4 mg/mL SDV 1 mL 2 MG IVP ×3 (03:34→22:17)
[2020-06-02] MEDS: sodium chloride 0.9% 1,000 ML 75 ML IV ×2 (03:38→17:27)
[2020-06-02 05:02] LABS: Basophils % 0.4 %; Eosinophils % 0.4 %; Hematocrit 26.7 % (37.0-47.0); Hemoglobin 9.4 g/dL (11.5-15.3); Lymphocytes # 0.6 10^3/uL (0.8-4.8); Lymphocytes % 25.7 %; Mean Corpuscular HGB Conc 35.2 g/dL (30.0-36.0); Mean Corpuscular Hemoglobin 36.4 pg (28.0-34.0); Mean Corpuscular Volume 103.5 fL (81-99); Mean Platelet Volume 12.2 fL (7.4-10.4); Monocytes # 0.4 10^3/uL (0.2-0.9); Monocytes % 15.2 %; Neutrophils # 1.33 10^3/uL (1.8-7.7); Neutrophils % 57.9 %; Nucleated Red Blood Cells % 0 %; Platelet Count 37 10^3/cmm (130-400); Red Blood Count 2.58 10^6/uL (4.1-5.3); Red Cell Distribution Width 17.1 % (12.1-15.1); White Blood Count 2.3 10^3/uL (4.0-10.0)
[2020-06-02 05:11] LABS: INR 0.96 (0.8-1.2)
[2020-06-02 05:26] LABS: Alanine Aminotransferase 51 U/L (0-33); Albumin Level 2.5 g/dL (3.5-5.2); Alkaline Phosphatase 88 IU/L (35-105); Anion Gap 13.2 (5-19); Aspartate Amino Transferase 145 U/L (0-32); Blood Urea Nitrogen 9 mg/dL (6-20); Calcium 7.9 mg/dL (8.5-10.5); Carbon Dioxide 20 mmol/L (22-29); Chloride 98 mmol/L (98-107); Globulin 2.8 g/dL (1.3-4.6); Glomerular Filtration Rate 77.6 mL/min (90-130); Glucose 79 mg/dL (65-115); Magnesium 1.6 mg/dL (1.7-2.3); Osmolality Calculated 264 mOsm/kg (285-295); Phosphorus 1.7 mg/dL (2.5-4.5); Potassium 3.2 mmol/L (3.5-5.1); Sodium 128 mmol/L (136-145); Total Bilirubin 0.9 mg/dL (0.15-1.2); Total Protein 5.3 g/dL (6.6-8.7)
--- NOTE | 2020-06-02 07:00 | USCV_ITS ---
Denisa Orourke Age: 44 Gender: F : 1975 Exam Date: 06/02/2020 06:42 Ordering Phys: Juan J Kovacs MD Technologist: Minnie Wallace [place] [facility] [place]: [place] HISTORY: DVT. PROCEDURES: Venous duplex imaging was performed in bilateral lower extremities. The following venous structures were evaluated: common femoral vein, profunda vein, proximal portion of the greater saphenous vein, superficial femoral vein, and the popliteal vein. In addition, the posterior tibial and peroneal trunk were evaluated. Serial compression, augmentation maneuvers, and spectral Doppler flow evaluation were performed. FINDINGS: Normal 2-D Doppler and augmentation and compressibility throughout the lower extremity venous structures. Additional imaging through the proximal calf veins also reveals no thrombus. Limited evaluation of the greater saphenous vein is patent with no thrombus.. CONCLUSIONS No evidence of right lower extremity DVT. No evidence of left lower extremity DVT. Jesus Kendall MD (Electronically Signed) Final Date: 02 June 2020 09:58 S
[2020-06-02 08:05] LABS: Coronavirus Lab Test PTC Negative
[2020-06-02] MEDS: multivitamin therapeutic Tablet 1 TAB PO (08:52)
[2020-06-02] MEDS: thiamine 100 mg Tablet PO (08:53)
[2020-06-02] MEDS: cetirizine 10 mg Tablet PO ×2 (08:53→18:31)
[2020-06-02] MEDS: acetaminophen 325 mg Tablet 650 MG PO ×2 (08:53→21:01)
[2020-06-02] MEDS: pantoprazole DR 40 mg Tablet PO (08:53)
[2020-06-02] MEDS: folic acid 1 mg Tablet PO (08:53)
--- NOTE | 2020-06-02 09:59 | PC.NURSE ---
called lab to verify that covid test was negative since miscellaneous says pending, confirmed that PCR was negative and pt could be taken off precautions. dr burnett notified.
--- NOTE | 2020-06-02 11:33 | PC.NURSE ---
pt resting in bed. no needs at this time, will continue to monitor.
[2020-06-02 12:07] LABS: CENTROMERE B ANTIBODY <1.0 NEG AI (<1.0 NEG); JO-1 ANTIBODY <1.0 NEG AI (<1.0 NEG); RNP ANTIBODY <1.0 NEG AI (<1.0 NEG); SCL-70 ANTIBODY <1.0 NEG AI (<1.0 NEG); SJOGREN'S ANTIBODY (SS-A) <1.0 NEG AI (<1.0 NEG); SM ANTIBODY <1.0 NEG AI (<1.0 NEG)
[2020-06-02] MEDS: potassium chloride ER 10 mEq Tablet 20 MEQ PO (18:31)
--- NOTE | 2020-06-02 18:44 | PM.PN ---
Subjective Subjective: Interval history: 44-year-old female with a past medical history significant for PSVT status post ablation, hypertension, fibromyalgia, gastroesophageal reflux disease, tobacco abuse, chronic alcoholism, LLE DVT on xarelto who presented to the ER with nausea vomiting and bilateral flank pain. Laboratory workup on arrival showed a WBC of 1.9, hemoglobin of 10.0, hematocrit of 28.4 and a platelet count of 28. imaging studies included a chest x-ray which showed mildly hyperaerated lungs consistent with deep inspiratory effort versus reactive airway disease. Right upper quadrant ultrasound was performed which showed fatty infiltration of the liver. CT angio of chest abdomen and pelvis showed multiple peripheral wedge-shaped hypodense right renal pre fusion defects consistent with right pyelonephritis. Inflammation surrounding the right kidney extended inferiorly along the right ureteral wall. pulmonary embolism in the left lower lobe pulmonary artery with no segmental occlusion. No right heart strain. Patient was started on IV rocephin. Found to have escherichia coli uti as well as gram negative rods in blood. 06/02/2020 Noted to be more alert today. Complaining of low back pain, no fever, chills, nausea or vomiting overnight. Denied chest pain or dyspnea. Vitals/I&O/Wt Last Vital Signs Temp 97.8 F 06/02/20 15:15 Pulse 80 06/02/20 15:15 Resp 17 06/02/20 16:14 BP 106/80 06/02/20 15:15 Pulse Ox 100 06/02/20 15:15 06/02/20 06/02/20 06/02/20 06:59 14:59 22:59 Intake Total 1875 / 5932.25 1380 / 1380 1340 / 2720 Output Total 300 / 1200 Balance 1575 / 4732.25 1380 / 1380 1340 / 2720 Physical Exam Const: COMMON NORMALS: no acute distress and patient oriented x3 GENERAL APPEARANCE: cooperative and comfortable HENMT: COMMON NORMALS: normocephalic HEAD & SCALP: normocephalic Eye: COMMON NORMALS: Equal, round and reactive pupils present and EOMs intact bilaterally GENERAL EYE: appearance normal, both eyes and all related structures PUPIL: Yes Equal, round and reactive pupils present Neck/C-Spine: COMMON NORMALS: full ROM, no lymphadenopathy, no JVD and Thyroid normal THYROID: Thyroid normal Lymph: LYMPHATIC: no lymphadenopathy noted Resp: COMMON NORMALS: normal respiratory effort, No retractions, No use of accessory muscles and clear to auscultation bilaterally AUSCULTATION: clear to auscultation bilaterally Cardio: COMMON NORMALS: no JVD, regular rate, regular rhythm, S1 normal heart sound present, S2 normal heart sound present, No gallops present (Cardio), No clicks present (Cardio) and No murmurs present (Cardio) RATE: regular rate RHYTHM: regular rhythm HEART SOUNDS: S1 normal heart sound present and S2 normal heart sound present GI: COMMON NORMALS: Normal to inspection, nondistended, normoactive bowel sounds present, Soft to palpation, non-tender and No hepatosplenomegaly present PALPATION: Yes Soft to palpation, Yes Tenderness to palpation present (GI), No Guarding due to palpation present (GI), No Rigid due to palpation and Yes No hepatosplenomegaly present : BLADDER/KIDNEY EXAM: Yes CVA tenderness Back/Pelvis: GENERAL BACK: Yes CVA tenderness CVA tenderness: bilateral Extremity: COMMON NORMALS: normal to inspection, full ROM and no pedal edema Neuro: COMMON NORMALS: patient oriented x3, CN's II-XII intact bilaterally, moves all extremities and no focal motor deficits Psych: COMMON NORMALS: mental status grossly normal, Normal thought process present and cooperative THOUGHT PROCESS: Normal thought process present Data : 06/02/20 04:17 06/02/20 04:17 Micro: Microbiology 05/31/20 18:41 Urine Culture - Preliminary Urine,Clean Catch Gram Negative Rods 05/31/20 00:39 Blood Culture - Preliminary Blood NEGATIVE TO DATE A&P Assessment and plan (1) Pyelonephritis of right kidney: Status: Acute (2) Sepsis: Status: Acute (3) Leukopenia: Status: Acute (4) Thrombocytopenia: Status: Acute (5) UTI (urinary tract infection): Status: Acute (6) Deep vein thrombosis (DVT) of calf muscle vein of left lower extremity: Status: Acute Qualifiers: Chronicity: acute Qualified Code(s): I82.462 - Acute embolism and thrombosis of left calf muscular vein (7) Vitamin B12 deficiency anemia: Status: Acute (8) PSVT (paroxysmal supraventricular tachycardia): Status: Acute (9) Transaminitis: Status: Acute (10) Hyponatremia: Status: Acute (11) Alcohol abuse: Status: Acute (12) Pulmonary emboli: Status: Acute Sepsis due to gram negative bacteremia / UTI suspected pyleonephritis - Procalcitonin 23.10 on admission - Blood culture 05/31 - Gram negative rods - Repeat blood culture in am - Urine culture 05/31 - > gram negative rods - Continue premixin 500 mg IV q6hr - Tyelnol PRN for fever Acute Renal infarcts - CTA Abd/Pelvis - > multiple wedge shaped hypodense renal perfusion defects - Concern for underlying hypercoagulable disorder, Atrial fibrillation - Prior hx of cardiac arrythemias - May again require event monitor at discharge - Recent ECho reviewed. - Unfortunately unable to anticoagulate due to reason noted above. Acute Pulmonary embolism with hx of DVT - CTA chest - > PE noted in left lower lobe pulmonary artery - Repeat venous duplex - No evidence of DVT - S/p Lovenox x 1 in ER - Previously on Xarelto 15 mg PO BID - Non-compliance suspected - Unable to anticoagulate due to high risk of bleeding - No respiratory complaints. - May consider IVC filter however no dvt on LE US Pancytopenia - Intially noted on 12/2019 on admission for DVT - Suspected to be 2/2 alcoholism induced bone marrow suppression vs heparin induced - Did not follow up with hematology outpatient - No prior bone marrow biopsy 1. Leukopenia - WBC - 2.7 - > 1.9 -> 2.3 - Possibly related to sepsis vs liver dysfunction - Will need hematology consult outpatient - Chronic as this was noted since 12/2019 2. Anemia - Hemoglobin in 03/2020 - 14.8 -> 11.9 on admit - Decreased to 9.4 - No obvious evidence of bleeding - Will check Iron studies in am - Stool for occult blood - Will likley require GI eval with EGD/Colonoscopy soon 3. Thrombocytopenia - 54-> 28 -> 37 - No obvious evidence of bleeding - Was givne lovenox 60 mg SQ x 1 in ER on admission - Trend plts daily - moniotor for signs of bleeding - Check for HIT ab in am labs Transaminitis - AST - 168 -> 145 - ALT - 49 -> 51 - Alk- p 78 - Total Bili - 1.0 - INR 0.96 - Hepatitis panel in 03/19 - > non-reactive - Auto-immunue work up sent -pending. - Etoh - < 10 - Abdominal US - 08/24 - no spleenomegaly - CTA - Fatty infiltration of liver - Continue to trend Pelvic/Rt Hip pain - hx of S4-S5 fracture - Pain control - Repeat pelvic/Rt hip x-ray now Hyponatremia - 131 - > 128 - Will check urinary sodium, creatinine, osmolality Hypokalemia - K 3.2 - Replaced - BMP in am Hypomagnesemia - Mg 1.6 - Mag sulfate 2g IV x 1 ordered - Repeat in am Hx of Alcohol abuse - Krissy denies - CIWA with PRN atival - Folate / Thiamine Fibromyalgia - Pain management Hypertension - Not on antihypertensive meds P.SVT - S/p ablation - Stable GERD - PPI DVT ppx - Ambulate - SCDs Attestations Medical Necessity Statement*: Due to ongoing sepsis requiring antibiotics will need to continue hospitalization Time Spent in Patient Care: Greater than 35 minutes Coding Level of Care Code Acute [employer] for [facility] Fwd Diagnoses Pyelonephritis of right kidney N12 Sepsis A41.9 Leukopenia D72.819 Thrombocytopenia D69.6 UTI (urinary tract infection) N39.0 Deep vein thrombosis (DVT) of calf muscle vein of left lower extremity I82.462 Chronicity: acute Vitamin B12 deficiency anemia D51.9 PSVT (paroxysmal supraventricular tachycardia) I47.1 Transaminitis R74.01 Hyponatremia E87.1 Alcohol abuse F10.10 Pulmonary emboli I26.99
--- NOTE | 2020-06-02 19:31 | PC.NURSE ---
pt reporting 10/10 pain in right hip. patient given morphine. dr notified that pt says it isn't working. pt then refusing to do xray due to not wanting to lay flat. dr notified.
[2020-06-02] MEDS: LORazepam 2 mg Tablet PO (20:29)
[2020-06-02] MEDS: ondansetron 2 mg/ML SDV 2 mL 4 MG IVP (21:05)
[2020-06-03] VITALS (11 sets, daily range): BP systolic 108–145; BP diastolic 78–99; PULSE 73–102; RESP 17–25; TEMP 36.3–38.2; O2SAT 91–100
[2020-06-03] MEDS: morphine 4 mg/mL SDV 1 mL 2 MG IVP ×2 (05:50→19:17)
[2020-06-03 06:24] LABS: Basophils % 0.7 %; Eosinophils % 1.1 %; Hematocrit 32.5 % (37.0-47.0); Lymphocytes # 0.8 10^3/uL (0.8-4.8); Lymphocytes % 26.7 %; Mean Corpuscular HGB Conc 33.8 g/dL (30.0-36.0); Mean Corpuscular Hemoglobin 35.9 pg (28.0-34.0); Mean Corpuscular Volume 106.2 fL (81-99); Monocytes # 0.4 10^3/uL (0.2-0.9); Monocytes % 15.1 %; Neutrophils # 1.59 10^3/uL (1.8-7.7); Neutrophils % 55.7 %; Nucleated Red Blood Cells % 0 %; Platelet Count 60 10^3/cmm (130-400); Red Blood Count 3.06 10^6/uL (4.1-5.3); Red Cell Distribution Width 17.4 % (12.1-15.1); White Blood Count 2.9 10^3/uL (4.0-10.0)
[2020-06-03 07:37] LABS: Urine Creatinine 44 mg/dL (28-217); Urine Random Chloride 73 mmol/L; Urine Random Sodium 71 mmol/L
[2020-06-03] MEDS: acetaminophen 325 mg Tablet 650 MG PO (07:41)
[2020-06-03 07:48] LABS: Alanine Aminotransferase 52 U/L (0-33); Albumin Level 3.1 g/dL (3.5-5.2); Alkaline Phosphatase 118 IU/L (35-105); Anion Gap 13.1 (5-19); Aspartate Amino Transferase 124 U/L (0-32); Blood Urea Nitrogen 5 mg/dL (6-20); Calcium 8.8 mg/dL (8.5-10.5); Carbon Dioxide 24 mmol/L (22-29); Chloride 99 mmol/L (98-107); Globulin 3.4 g/dL (1.3-4.6); Glomerular Filtration Rate 67.7 mL/min (90-130); Glucose 89 mg/dL (65-115); Magnesium 1.8 mg/dL (1.7-2.3); Osmolality Calculated 273 mOsm/kg (285-295); Phosphorus 2.1 mg/dL (2.5-4.5); Potassium 3.1 mmol/L (3.5-5.1); Sodium 133 mmol/L (136-145); Total Protein 6.5 g/dL (6.6-8.7)
[2020-06-03 08:04] LABS: INR 0.89 (0.8-1.2)
[2020-06-03 08:05] LABS: Fibrinogen 511 mg/dL (174-498); Partial Thromboplastin Time 43.2 SECONDS (23.9-36.7)
[2020-06-03 08:16] LABS: Lactate (Lactic Acid level) 1.4 mmol/L (0.5-2.2)
[2020-06-03 08:36] LABS: Platelet Count 60 10^3/cmm (130-400)
[2020-06-03] MEDS: pantoprazole DR 40 mg Tablet PO (08:57)
[2020-06-03] MEDS: multivitamin therapeutic Tablet 1 TAB PO (08:57)
[2020-06-03] MEDS: folic acid 1 mg Tablet PO (08:57)
[2020-06-03] MEDS: thiamine 100 mg Tablet PO (08:57)
[2020-06-03] MEDS: apixaban 5 mg Tablet 2.5 MG PO ×2 (09:27→17:28)
--- NOTE | 2020-06-03 09:40 | PC.NURSE ---
pt stated that dr was in the room and going to advance diet and prescribe something for her pain. dr burnett notified and reminded and said he would put the orders in. call light within reach, will continue to monitor
--- NOTE | 2020-06-03 11:45 | PM.PN ---
Subjective Subjective: Interval history: 44-year-old female with a past medical history significant for PSVT status post ablation, hypertension, fibromyalgia, gastroesophageal reflux disease, tobacco abuse, chronic alcoholism, LLE DVT on xarelto who presented to the ER with nausea vomiting and bilateral flank pain. Laboratory workup on arrival showed a WBC of 1.9, hemoglobin of 10.0, hematocrit of 28.4 and a platelet count of 28. imaging studies included a chest x-ray which showed mildly hyperaerated lungs consistent with deep inspiratory effort versus reactive airway disease. Right upper quadrant ultrasound was performed which showed fatty infiltration of the liver. CT angio of chest abdomen and pelvis showed multiple peripheral wedge-shaped hypodense right renal pre fusion defects suspecious for renal infarcts as well as perinephric standing consistent with right pyelonephritis. Acute pulmonary embolism in the left lower lobe pulmonary artery with no segmental occlusion. No right heart strain.Patient was given a dose of lovenox in ER after which she was noted to have a further drop in plts and hemoglobin. No obvious source of bleeding. Due to high risk of bleeding anticoagulation was not resumed. Plateltes and hb improved during which time she was started on lower dose of eliquis 2.5 mg PO BID. Risk vs benefit was discuss with patient. Hypercoag work up was sent in addition to HIT ab. Patient was started on IV rocephin. Found to have escherichia coli uti as well as gram negative rods in blood. Fever curve improved. 06/02/2020 Noted to be more alert today. Complaining of low back pain, no fever, chills, nausea or vomiting overnight. Denied chest pain or dyspnea. 06/03/2020 Patient was not complaining of worsening back or hip pain today. Was more alert however. No fever, chills, nausea or vomiting. No chest maynard or dyspena. Vitals/I&O/Wt Last Vital Signs Temp 97.4 F L 06/03/20 10:55 Pulse 77 06/03/20 10:55 Resp 20 H 06/03/20 10:55 BP 130/88 06/03/20 10:55 Pulse Ox 97 06/03/20 10:55 06/02/20 06/03/20 06/03/20 22:59 06:59 14:59 Intake Total 3000.5 / 4380.5 700 / 5080.5 700 / 700 Output Total 700 / 700 800 / 1500 Balance 2300.5 / 3680.5 -100 / 3580.5 700 / 700 Physical Exam Const: COMMON NORMALS: no acute distress and patient oriented x3 GENERAL APPEARANCE: cooperative and comfortable HENMT: COMMON NORMALS: normocephalic HEAD & SCALP: normocephalic Eye: COMMON NORMALS: Equal, round and reactive pupils present and EOMs intact bilaterally GENERAL EYE: appearance normal, both eyes and all related structures PUPIL: Yes Equal, round and reactive pupils present Neck/C-Spine: COMMON NORMALS: full ROM, no lymphadenopathy, no JVD and Thyroid normal THYROID: Thyroid normal Lymph: LYMPHATIC: no lymphadenopathy noted Resp: COMMON NORMALS: normal respiratory effort, No retractions, No use of accessory muscles and clear to auscultation bilaterally AUSCULTATION: clear to auscultation bilaterally Cardio: COMMON NORMALS: no JVD, regular rate, regular rhythm, S1 normal heart sound present, S2 normal heart sound present, No gallops present (Cardio), No clicks present (Cardio) and No murmurs present (Cardio) RATE: regular rate RHYTHM: regular rhythm HEART SOUNDS: S1 normal heart sound present and S2 normal heart sound present GI: COMMON NORMALS: Normal to inspection, nondistended, normoactive bowel sounds present, Soft to palpation, non-tender and No hepatosplenomegaly present PALPATION: Yes Soft to palpation, No Tenderness to palpation present (GI), No Guarding due to palpation present (GI), No Rigid due to palpation and Yes No hepatosplenomegaly present : BLADDER/KIDNEY EXAM: No CVA tenderness Back/Pelvis: GENERAL BACK: No CVA tenderness Extremity: COMMON NORMALS: normal to inspection, full ROM and no pedal edema Neuro: COMMON NORMALS: patient oriented x3, CN's II-XII intact bilaterally, moves all extremities and no focal motor deficits Psych: COMMON NORMALS: mental status grossly normal, Normal thought process present and cooperative THOUGHT PROCESS: Normal thought process present Data : 06/03/20 05:44 06/03/20 05:44 Micro: Microbiology 05/31/20 18:41 Urine Culture - Final Urine,Clean Catch Escherichia coli 06/03/20 07:07 Blood Culture - Preliminary Blood SPECIMEN COLLECTED 06/03/20 05:44 Blood Culture - Preliminary Blood SPECIMEN COLLECTED A&P Assessment and plan (1) Pyelonephritis of right kidney: Status: Acute (2) Sepsis: Status: Acute (3) Leukopenia: Status: Acute (4) Thrombocytopenia: Status: Acute (5) UTI (urinary tract infection): Status: Acute (6) Deep vein thrombosis (DVT) of calf muscle vein of left lower extremity: Status: Acute Qualifiers: Chronicity: acute Qualified Code(s): I82.462 - Acute embolism and thrombosis of left calf muscular vein (7) Vitamin B12 deficiency anemia: Status: Acute (8) PSVT (paroxysmal supraventricular tachycardia): Status: Acute (9) Transaminitis: Status: Acute (10) Hyponatremia: Status: Acute (11) Alcohol abuse: Status: Acute (12) Pulmonary emboli: Status: Acute Sepsis due to gram negative bacteremia / UTI suspected pyleonephritis - Procalcitonin 23.10 on admission - Blood culture 05/31 - Gram negative rods - Follow up on repeat blood culture today - Urine culture 05/31 - > E-coli - Continue premixin 500 mg IV q6hr - Tyelnol PRN for fever Acute Renal infarcts - CTA Abd/Pelvis - > multiple wedge shaped hypodense renal perfusion defects - Concern for underlying hypercoagulable disorder, Atrial fibrillation - Prior hx of cardiac arrythemias - May again require event monitor at discharge - Recent ECHO reviewed. - Restarted today on Eliquis 2.5 mg PO BID Acute Pulmonary embolism with hx of DVT - CTA chest - > PE noted in left lower lobe pulmonary artery - Repeat venous duplex - No evidence of DVT - S/p Lovenox x 1 in ER - Previously on Xarelto 15 mg PO BID - Non-compliance suspected - Unable to anticoagulate initially due to high risk of bleeding - No respiratory complaints. - May consider IVC filter however no dvt on LE US - Plts improved, h/h stable - Started on Eliquis 2.5 mg PO BID - Follow up on hypercoagulable work up Pancytopenia - Intially noted on 12/2019 on admission for DVT - Suspected to be 2/2 alcoholism induced bone marrow suppression vs heparin induced - Did not follow up with hematology outpatient - No prior bone marrow biopsy - Will likely require bone marrow biopsy as outpatient if persisting 1. Leukopenia - WBC - 2.7 - > 1.9 -> 2.3 - 2.9 - Possibly related to sepsis vs liver dysfunction - Will need hematology consult outpatient - Chronic as this was noted since 12/2019 2. Anemia - Hemoglobin in 03/2020 - 14.8 -> 11.9 on admit - Decreased to 9.4 - Increased to 11.0 - No obvious evidence of bleeding - Iron - normal, Ferritin 721 - Stool for occult blood - pending - Will emmyley require GI eval with EGD/Colonoscopy outpatient 3. Thrombocytopenia - 54-> 28 -> 37 - 60+ - No obvious evidence of bleeding - Was given lovenox 60 mg SQ x 1 in ER on admission - Trend plts daily - moniotor for signs of bleeding - HIT ab sent - pending - avoid heparin products Transaminitis - AST - 168 -> 145 - 124 - ALT - 49 -> 51 - 52 - Alk- p 78 - 118 - Total Bili - 1.0 - INR 0.96 - Hepatitis panel in 03/19 - > non-reactive - Auto-immunue work up sent -pending. - Etoh - < 10 - Abdominal US - 03/23 - no spleenomegaly - CTA - Fatty infiltration of liver - May require Liver biospy outpatient - Continue to trend Pelvic/Rt Hip pain - hx of S4-S5 fracture - Pain control - Repeat pelvic/Rt hip x-ray ordered - refused by patient Hyponatremia - 131 - > 128 -> 133 - Possible SIADH - UaNa - 71, osm pending - Check while on IVF however - May need fluid restriction Hypokalemia / Hypophosphotemia - K 3.2 - Kphos 15 mmol x 1 now - BMP in am Hypomagnesemia - Mg 1.6 - 1.8 after replacement - Repeat in am Hx of Alcohol abuse - Krissy perry - CIWA with PRN atival - Folate / Thiamine Fibromyalgia - Pain management Hypertension - Not on antihypertensive meds P.SVT - S/p ablation - Stable GERD - PPI DVT ppx - Eliquis 2.5 mg PO BID Attestations Medical Necessity Statement*: Ongoing treatment of sepsis with IV abx, pancytopenia. Will require further night in hospital Time Spent in Patient Care: Greater than 35 minutes (>than 50% of time spent in counselling and/or direct pt care on unit). Coding Level of Care Code Acute Dramatic Arts Historian for [facility] Fwd Diagnoses Pyelonephritis of right kidney N12 Sepsis A41.9 Leukopenia D72.819 Thrombocytopenia D69.6 UTI (urinary tract infection) N39.0 Deep vein thrombosis (DVT) of calf muscle vein of left lower extremity I82.462 Chronicity: acute Vitamin B12 deficiency anemia D51.9 PSVT (paroxysmal supraventricular tachycardia) I47.1 Transaminitis R74.01 Hyponatremia E87.1 Alcohol abuse F10.10 Pulmonary emboli I26.99
[2020-06-03 12:03] LABS: COMPLEMENT COMPONENT C3C 73 mg/dL (83-193); COMPLEMENT COMPONENT C4C 26 mg/dL (15-57)
[2020-06-03 12:33] LABS: THYROID PEROXIDASE ANTIBODIES <1 IU/mL (<9)
--- NOTE | 2020-06-03 13:39 | PC.NURSE ---
patient expressed pain and wanted something to help. dr had talked about flexeril earlier in the day and pt stated, Oh, that's what I take at home and it doesn't help. They gave me something the other night called toradol maybe and it helped. dr burnett notified. will continue to monitor. call light within reach.
--- NOTE | 2020-06-03 14:46 | PC.NURSE ---
dr burnett notified of patient still wanting pain medications. dr said he would put order in.
[2020-06-03] MEDS: diazePAM 2 mg Tablet PO (14:57)
[2020-06-03 15:38] LABS: COMPLEMENT, TOTAL (CH50) 46 U/mL (31-60)
[2020-06-03] MEDS: ondansetron 2 mg/ML SDV 2 mL 4 MG IVP (19:17)
[2020-06-04] VITALS (10 sets, daily range): BP systolic 121–135; BP diastolic 84–91; PULSE 72–102; RESP 16–22; TEMP 36.1–37.2; O2SAT 95–100
[2020-06-04] MEDS: morphine 4 mg/mL SDV 1 mL 2 MG IVP ×3 (02:07→23:39)
[2020-06-04] MEDS: ondansetron 2 mg/ML SDV 2 mL 4 MG IVP ×2 (02:08→19:38)
--- NOTE | 2020-06-04 02:24 | PC.NURSE ---
SHIFT SUMMARY: NURSING NOTE: PT ALERT AND ORIENTED X4, MOVES ALL EXTREMITIES AND FOLLOWS COMMANDS. ALL VS AND ASSESSMENTS CHARTED. AT START OF SHIFT, PT C/O PAIN AND NAUSEA AND REQUESTED MEDICATION. MEDICATION GIVEN AT THAT TIME. AT APPROX 2200, PT ASKED NURSE TECH TO HAVE NURSE BRING HER SOMETHING TO HELP HER SLEEP. WHEN THIS NURSE ARRIVED TO PATIENT'S ROOM, PT SOUND ASLEEP; HAD TO SHAKE HER ARM TO GET HER AWAKE. MEDICATION NOT GIVEN AT THIS TIME. AT APPROX 0200, PT ASKED FOR PAIN AND NAUSEA MEDICATION; AGAIN , WHEN THIS NURSE WENT INTO ROOM, PATIENT ASLEEP. HAD TO SHAKE HER ARM TO WAKE HER UP. PT STATED PAIN IN HIPS WAS 8/10. MEDICATION GIVEN AT THIS TIME. PT CURRENTLY RESTING WITH EYES CLOSED/RESP EVEN AND NON LABORED. AROUSES EASILY TO TACTILE STIMULI.
[2020-06-04 05:28] LABS: Eosinophils # 0.1 10^3/uL (0.0-0.8); Eosinophils % 1.9 %; Hematocrit 28.4 % (37.0-47.0); Hemoglobin 9.6 g/dL (11.5-15.3); Lymphocytes # 1.1 10^3/uL (0.8-4.8); Lymphocytes % 35.1 %; Mean Corpuscular HGB Conc 33.8 g/dL (30.0-36.0); Mean Corpuscular Hemoglobin 35.6 pg (28.0-34.0); Mean Corpuscular Volume 105.2 fL (81-99); Monocytes # 0.6 10^3/uL (0.2-0.9); Monocytes % 18.5 %; Neutrophils # 1.33 10^3/uL (1.8-7.7); Neutrophils % 43.2 %; Nucleated Red Blood Cells % 0 %; Platelet Count 88 10^3/cmm (130-400); Red Cell Distribution Width 17.3 % (12.1-15.1); White Blood Count 3.1 10^3/uL (4.0-10.0)
[2020-06-04 05:50] LABS: Alanine Aminotransferase 40 U/L (0-33); Albumin Level 2.7 g/dL (3.5-5.2); Alkaline Phosphatase 116 IU/L (35-105); Anion Gap 11.2 (5-19); Aspartate Amino Transferase 79 U/L (0-32); Blood Urea Nitrogen 4 mg/dL (6-20); Calcium 8.5 mg/dL (8.5-10.5); Carbon Dioxide 25 mmol/L (22-29); Chloride 100 mmol/L (98-107); Globulin 3.2 g/dL (1.3-4.6); Glomerular Filtration Rate 77.2 mL/min (90-130); Glucose 90 mg/dL (65-115); Osmolality Calculated 272 mOsm/kg (285-295); Potassium 3.2 mmol/L (3.5-5.1); Sodium 133 mmol/L (136-145); Total Bilirubin 0.9 mg/dL (0.15-1.2); Total Protein 5.9 g/dL (6.6-8.7)
[2020-06-04] MEDS: apixaban 5 mg Tablet 2.5 MG PO (08:41)
[2020-06-04] MEDS: pantoprazole DR 40 mg Tablet PO (08:41)
[2020-06-04] MEDS: folic acid 1 mg Tablet PO (08:41)
[2020-06-04] MEDS: thiamine 100 mg Tablet PO (08:41)
[2020-06-04] MEDS: multivitamin therapeutic Tablet 1 TAB PO (08:41)
[2020-06-04 11:02] LABS: Procalcitonin 3.31 ng/mL (0-0.5)
[2020-06-04 11:03] LABS: Thyroid Stimulating Hormone 9.47 uIU/mL (0.27-4.20)
[2020-06-04 11:13] LABS: Iron 29 ug/dL (37-145); Percent Saturation 23.5 % (20-50); Total Iron Binding Capacity 123 mcg/dl; Unsaturated Iron Binding 94 ug/dL (112-347)
[2020-06-04] MEDS: acetaminophen 325 mg Tablet 650 MG PO (12:10)
--- NOTE | 2020-06-04 12:15 | PM.PN ---
Subjective Subjective: Interval history: Hospital course and vitals and labs noted. No acute events overnight. Patient has remained afebrile and hemodynamically stable saturating 100% on room air. Denies any nausea, vomiting, headache. Complaining of back pain. Vitals/I&O/Wt Last Vital Signs Temp 98.9 F 06/04/20 11:11 Pulse 87 06/04/20 11:11 Resp 20 H 06/04/20 11:11 BP 124/86 06/04/20 11:11 Pulse Ox 97 06/04/20 11:11 06/03/20 06/04/20 06/04/20 22:59 06:59 14:59 Intake Total 665 / 1605 340 / 1945 460 / 460 Output Total 1200 / 1200 1000 / 2200 Balance -535 / 405 -660 / -255 460 / 460 Physical Exam Const: COMMON NORMALS: no acute distress and patient oriented x3 GENERAL APPEARANCE: cooperative and comfortable HENMT: COMMON NORMALS: normocephalic HEAD & SCALP: normocephalic Eye: COMMON NORMALS: Equal, round and reactive pupils present and EOMs intact bilaterally GENERAL EYE: appearance normal, both eyes and all related structures PUPIL: Yes Equal, round and reactive pupils present Neck/C-Spine: COMMON NORMALS: full ROM, no lymphadenopathy, no JVD and Thyroid normal THYROID: Thyroid normal Lymph: LYMPHATIC: no lymphadenopathy noted Resp: COMMON NORMALS: normal respiratory effort, No retractions, No use of accessory muscles and clear to auscultation bilaterally AUSCULTATION: clear to auscultation bilaterally Cardio: COMMON NORMALS: no JVD, regular rate, regular rhythm, S1 normal heart sound present, S2 normal heart sound present, No gallops present (Cardio), No clicks present (Cardio) and No murmurs present (Cardio) RATE: regular rate RHYTHM: regular rhythm HEART SOUNDS: S1 normal heart sound present and S2 normal heart sound present GI: COMMON NORMALS: Normal to inspection, nondistended, normoactive bowel sounds present, Soft to palpation, non-tender and No hepatosplenomegaly present PALPATION: Yes Soft to palpation, No Tenderness to palpation present (GI), No Guarding due to palpation present (GI), No Rigid due to palpation and Yes No hepatosplenomegaly present : BLADDER/KIDNEY EXAM: No CVA tenderness Back/Pelvis: GENERAL BACK: No CVA tenderness Extremity: COMMON NORMALS: normal to inspection, full ROM and no pedal edema Neuro: COMMON NORMALS: patient oriented x3, CN's II-XII intact bilaterally, moves all extremities and no focal motor deficits Psych: COMMON NORMALS: mental status grossly normal, Normal thought process present and cooperative THOUGHT PROCESS: Normal thought process present Data : 06/04/20 04:12 06/04/20 04:12 Micro: Microbiology 06/03/20 07:07 Blood Culture - Preliminary Blood NEGATIVE TO DATE 06/03/20 05:44 Blood Culture - Preliminary Blood NEGATIVE TO DATE 05/31/20 15:15 Blood Culture - Preliminary Blood Escherichia coli 05/31/20 18:41 Urine Culture - Final Urine,Clean Catch Escherichia coli A&P Assessment and plan (1) Sepsis: Status: Acute (2) Gram-negative bacteremia: Status: Acute (3) Pyelonephritis of right kidney: Status: Acute (4) UTI (urinary tract infection): Status: Acute (5) Pulmonary emboli: Status: Acute (6) Renal infarct: Status: Acute (7) Leukopenia: Status: Acute (8) Thrombocytopenia: Status: Acute (9) Transaminitis: Status: Acute (10) Hyponatremia: Status: Acute (11) Vitamin B12 deficiency anemia: Status: Acute (12) PSVT (paroxysmal supraventricular tachycardia): Status: Acute (13) Alcohol abuse: Status: Acute Additional A&P Information E. coli bacteremia: Sepsis due to pyelonephritis: Blood cultures negative since June 03. Renal infarct: CT abdomen results discussed in detail with Dr. Kendall. He is concerned about old infarct on the left side after severe pyelonephritis in February and possible developing infarct in the right lower pole with current pyelonephritis. Patient did receive cefdinir in February. Switch to ceftriaxone from Primaxin as per the culture sensitivities. Patient will require antibiotics for overall 2 weeks since first negative blood cultures. Will place PICC line. Acute pulmonary embolism: Lower limb Dopplers during this admission negative for DVT. Patient states she has been noncompliant with Xarelto because of financial issues. Consulted case management for further assistance. Patient will see Dr. Wallace who is a [facility] physician and patient can get medication at a lower lew. Patient was on Xarelto as an outpatient and was started on Eliquis yesterday. On confirmation with the pharmacy Xarelto will be cheaper. Switch to Xarelto 20 mg oral daily from tomorrow. Starting on a lower dose rather than 50 mg twice daily for 3 weeks because of ongoing thrombocytopenia and anemia. If improves can increase back to 50 mg twice daily for first 3 weeks followed by 20 mg daily. Hyponatremia: Sodium level 133 today. Improving from 128. No stigmata of hyponatremia at present. Continue with monitoring sodium levels daily for now. Hypokalemia: We will start patient on oral iron supplementation. Pancytopenia: Most likely secondary to chronic alcohol abuse. Leukopenia and ANC is resolving. Platelet count 38,000. Check iron panel. Most probably requires follow-up as an outpatient with screen printing machine loader unloader. Heparin-induced panel sent earlier in admission. Results awaited. Transaminitis: CT abdomen pelvis negative for any gallbladder pathology. Most likely secondary to chronic alcohol abuse. Hepatitis panel and HIV negative in the past. Autoimmune work-up centered in the admission negative. Hypertension: Goal blood pressure less than 140/90 mmHg. Continue to monitor. PSVT GERD Chronic alcohol abuse: CIWA has been stable. Continue with oral multivitamin and folic acid along with thiamine. Protonix for PUD prophylaxis. Regular diet. Xarelto will help with DVT prophylaxis as well. Patient can be discharged tomorrow if hemoglobin, platelets remained stable with advised to follow-up as an outpatient and GI Lab for daily ceftriaxone for 12 more days. Placed today. Attestations Medical Necessity Statement*: Patient requires further hospitalization for management of E. coli bacteremia, acute pulmonary embolism, ongoing hyponatremia and pancytopenia Time Spent in Patient Care: Greater than 35 minutes (>than 50% of time spent in counselling and/or direct pt care on unit). Coding Level of Care Code Acute Healthcare Educator for [facility] Fwd Diagnoses Sepsis A41.9 Gram-negative bacteremia R78.81 Pyelonephritis of right kidney N12 UTI (urinary tract infection) N39.0 Pulmonary emboli I26.99 Renal infarct N28.0 Leukopenia D72.819 Thrombocytopenia D69.6 Transaminitis R74.01 Hyponatremia E87.1 Vitamin B12 deficiency anemia D51.9 PSVT (paroxysmal supraventricular tachycardia) I47.1 Alcohol abuse F10.10
--- NOTE | 2020-06-04 14:11 | XR_ITS ---
WS: [id number] CHEST XRAY TECHNIQUE: Portable chest. CLINICAL INFORMATION: picc placement COMPARISON: None. FINDINGS: Right PICC line with tip in the proximal SVC. No pneumothorax. Shallow inspiration. XR/XR chest 1V portable [id number] IMPRESSION: Right PICC line with tip in the proximal SVC.
[2020-06-04 15:03] LABS: ANA SCREEN, IFA NEGATIVE (NEGATIVE)
--- NOTE | 2020-06-04 15:03 | PC.NURSE ---
PICC right arm ready for use. Primary nurse notified.
[2020-06-04] MEDS: cefTRIAXone 1,000 MG in sodium chloride 0.9% (plus) 50 ML 100 MG IV (16:16)
--- NOTE | 2020-06-04 19:11 | PC.NURSE ---
telephone order received from Dr. Ames at 1707 to give dose of Rocephin tomorrow at 1200 instead of 1530, RBTO. Information passed to oncoming nurse.
[2020-06-04] MEDS: cyclobenzaprine 10 mg Tablet 5 MG PO (23:22)
[2020-06-05] VITALS (7 sets, daily range): BP systolic 123–147; BP diastolic 90–95; PULSE 83–92; RESP 16–19; TEMP 36.4–37.4; O2SAT 95–97
[2020-06-05 06:27] LABS: Basophils % 0.8 %; Eosinophils # 0.1 10^3/uL (0.0-0.8); Eosinophils % 2.6 %; Hematocrit 28.2 % (37.0-47.0); Hemoglobin 9.6 g/dL (11.5-15.3); Lymphocytes # 1.4 10^3/uL (0.8-4.8); Lymphocytes % 35.1 %; Mean Corpuscular Hemoglobin 35.8 pg (28.0-34.0); Mean Corpuscular Volume 105.2 fL (81-99); Mean Platelet Volume 11.7 fL (7.4-10.4); Monocytes # 0.4 10^3/uL (0.2-0.9); Monocytes % 10.1 %; Neutrophils # 1.96 10^3/uL (1.8-7.7); Neutrophils % 50.6 %; Nucleated Red Blood Cells % 0 %; Platelet Count 124 10^3/cmm (130-400); Red Blood Count 2.68 10^6/uL (4.1-5.3); Red Cell Distribution Width 17.7 % (12.1-15.1); White Blood Count 3.9 10^3/uL (4.0-10.0)
[2020-06-05 06:36] LABS: Alanine Aminotransferase 35 U/L (0-33); Albumin Level 2.7 g/dL (3.5-5.2); Alkaline Phosphatase 108 IU/L (35-105); Aspartate Amino Transferase 62 U/L (0-32); Blood Urea Nitrogen 4 mg/dL (6-20); Calcium 8.6 mg/dL (8.5-10.5); Carbon Dioxide 26 mmol/L (22-29); Chloride 102 mmol/L (98-107); Globulin 3.3 g/dL (1.3-4.6); Glomerular Filtration Rate 77.2 mL/min (90-130); Glucose 81 mg/dL (65-115); Osmolality Calculated 278 mOsm/kg (285-295); Sodium 136 mmol/L (136-145); Total Bilirubin 0.6 mg/dL (0.15-1.2)
[2020-06-05 06:50] LABS: Anion Gap 11.8 (5-19); Potassium 3.8 mmol/L (3.5-5.1)
[2020-06-05] MEDS: folic acid 1 mg Tablet PO (08:01)
[2020-06-05] MEDS: potassium chloride ER 10 mEq Tablet 40 MEQ PO (08:01)
[2020-06-05] MEDS: rivaroxaban 10 mg Tablet 20 MG PO (08:01)
[2020-06-05] MEDS: thiamine 100 mg Tablet PO (08:02)
[2020-06-05] MEDS: pantoprazole DR 40 mg Tablet PO (08:02)
[2020-06-05] MEDS: multivitamin therapeutic Tablet 1 TAB PO (08:02)
[2020-06-05 08:30] LABS: Slide Review Slide Review Perform
[2020-06-05] MEDS: cyclobenzaprine 10 mg Tablet 5 MG PO (09:59)
[2020-06-05] MEDS: acetaminophen 325 mg Tablet 650 MG PO (09:59)
--- NOTE | 2020-06-05 13:16 | PM.DCS ---
Discharge Providers Date of Admission: 05/31/20 21:31 Date of Discharge: June 05, 2020 Attending Provider at Admission: Hayder Jarrell MD Attending Provider at Discharge: Franck Ibanez MD Primary Care Provider: RODERICK Gonzales Diagnoses at Discharge Discharge Diagnosis (1) Sepsis: Status: Acute Permanent problem details: Gram-negative bacteremia with E. coli. She will finish 2 weeks of IV antibiotics total from her last negative blood culture. (2) Gram-negative bacteremia: Status: Acute (3) Pyelonephritis of right kidney: Status: Acute (4) UTI (urinary tract infection): Status: Acute (5) Pulmonary emboli: Status: Acute (6) Renal infarct: Status: Acute (7) Leukopenia: Status: Acute (8) Thrombocytopenia: Status: Acute (9) Transaminitis: Status: Acute (10) Hyponatremia: Status: Acute (11) Vitamin B12 deficiency anemia: Status: Acute (12) PSVT (paroxysmal supraventricular tachycardia): Status: Acute (13) Alcohol abuse: Status: Acute Reason for Visit Reason for Visit: TESTED FOR COVID YEST, RUNNING FEVER/INCR SYMPTOMS Hospital Course Hospital Course: Denisa is a 45-year-old white female who presented to the hospital with fever. She was diagnosed with pyelonephritis, likely causing renal infarct. She appeared septic on admission. IV antibiotics were initiated. She had had a previous history of DVT and pulmonary embolism. Anticoagulation was held secondary to concern of severe thrombocytopenia. There was concern that this was alcohol related secondary to bone marrow suppression. A CTA was performed, demonstrating a left lower lobe pulmonary embolism. She had stopped her anticoagulation previously. While in the hospital her sepsis and fevers resolved. It was decided to place a PICC line, to give her 2 weeks of IV antibiotics from her last negative culture secondary to pyelonephritis with renal infarct. While in the hospital platelet count, and leukopenia improved as expected after alcohol was withheld. On discharge it was planned to continue the IV antibiotics, have her follow-up with her primary care provider as well as urology. She will resume Xarelto, starting doses as she had a significant interruption in her therapy and left lower lobe pulmonary embolism was visualized on CTA. Venous duplex was also performed in the hospital on June 02 and demonstrated no DVT. She was encouraged not to drink any alcohol. Physical Exam Narrative: EXAM NARRATIVE: General exam is no apparent distress Cardiovascular regular rate and rhythm without murmur Lungs clear Abdomen is soft with positive bowel sounds Extremities no cyanosis clubbing or edema Discharge Data Data Completed and Pending: Completed Studies During Hospitalization Category Date Time Status CT angio chest w abd pel w con Urge nt Cat Scan 05/31/20 16:19 Completed XR chest 1V noam ble [id number] NOW Exams 06/04/20 14:11 Completed XR chest 1V noam ble [id number] Stat Exams 05/31/20 14:58 [place] [id number] Routin e Ultrasound 06/02/20 07:00 Completed Pending at discharge Category Date Time Status LATASHA Profile Rheum atology Stat Lab 05/31/20 22:10 Results Blood Culture Sta t Lab 05/31/20 00:39 Results Blood Culture Sta t Lab 06/03/20 07:07 Results Heparin Induced T hrombocytopen Rout ine Lab 06/03/20 05:44 Received Immunochemical Fe jerrica OCB Routine Lab 06/02/20 18:48 Uncollected MRSA by PCR Routi ne Lab 06/04/20 11:07 Received Miscellaneous Cassidy t Routine Lab 05/31/20 22:10 Received PROTEIN C, ACTIVI TY Routine Lab 06/04/20 16:00 Received PROTEIN S, ACTIVI TY Routine Lab 06/04/20 16:00 Received Von Willebrand Mu ltimeric PNL Routi ne Lab 06/04/20 16:00 Received Labs from last 24 hours 06/05/20 06/05/20 06/04/20 05:00 05:00 16:00 WBC 3.9 L RBC 2.68 L Hgb 9.6 L Hct 28.2 L MCV 105.2 H MCH 35.8 H MCHC 34.0 RDW 17.7 H Plt Count 124 L MPV 11.7 H Neut % (Auto) 50.6 Lymph % (Auto) 35.1 [place] % (Auto) 10.1 Eos % (Auto) 2.6 Baso % (Auto) 0.8 Neut # (Auto) 1.96 Lymph # (Auto) 1.4 [place] # (Auto) 0.4 Eos # (Auto) 0.1 Baso # (Auto) 0.0 Nucleated RBC % (a uto) 0 Nucleated RBCs # 0.0 Prot C Funct Activ ity Protein S Activity Pending Factor VIII Activi ty von Willebrand Ant igen vWF Ag Interpretat ion vWF Multimeric Ant igen vWF Ristocetin Cof actr Von Willebrand Act PTT Sodium 136 Potassium 3.8 Chloride 102 Carbon Dioxide 26 Anion Gap 11.8 BUN 4 L Creatinine 0.8 GFR Calculation 77.2 L Glucose 81 Calculated Osmolal ity 278 L Calcium 8.6 Total Bilirubin 0.6 AST 62 H ALT 35 H Alkaline Phosphata se 108 H Total Protein 6.0 L Albumin 2.7 L Globulin 3.3 LATASHA IFA Animal Tis Res 06/04/20 06/04/20 05/31/20 16:00 16:00 22:10 WBC RBC Hgb Hct MCV MCH MCHC RDW Plt Count MPV Neut % (Auto) Lymph % (Auto) [place] % (Auto) Eos % (Auto) Baso % (Auto) Neut # (Auto) Lymph # (Auto) [place] # (Auto) Eos # (Auto) Baso # (Auto) Nucleated RBC % (a uto) Nucleated RBCs # Prot C Funct Activ ity Pending Protein S Activity Factor VIII Activi ty Pending von Willebrand Ant igen Pending vWF Ag Interpretat ion Pending vWF Multimeric Ant igen Pending vWF Ristocetin Cof actr Pending Von Willebrand Act PTT Pending Sodium Potassium Chloride Carbon Dioxide Anion Gap BUN Creatinine GFR Calculation Glucose Calculated Osmolal ity Calcium Total Bilirubin AST ALT Alkaline Phosphata se Total Protein Albumin Globulin LATASHA IFA Animal Tis Res Negative Vitals: Last Vital Signs Temp 97.5 F L 06/05/20 11:18 Pulse 91 06/05/20 11:18 Resp 19 H 06/05/20 11:18 BP 124/90 06/05/20 11:18 Pulse Ox 97 06/05/20 11:18 Discharge Plan Discharge Patient Disposition: Home Condition: Stable Prescriptions: New ceftriaxone 2 gram recon soln 2 gm IV Q24H Qty: 12 RF: 0 Xarelto DVT-PE Treat 30d Start 15 mg (42)- 20 mg (9) tablets,dose pack See Rx Instructions .ROUTE .COMPLEX Qty: 51 RF: 0 Continued omeprazole magnesium [Prilosec OTC] 20 mg Tablet,Delayed Release (Dr/Ec) 20 mg PO DAILY RF: 0 cetirizine [Zyrtec] 10 mg Tablet 10 mg PO BID RF: 0 diphenhydramine HCl [Benadryl Allergy] 25 mg Tablet 25 mg PO PRN RF: 0 thiamine mononitrate (vit B1) [Vitamin B-1 (mononitrate)] 100 mg Tablet 100 mg PO DAILY Qty: 30 RF: 0 Vitamin B-12 2 tab PO DAILY RF: 0 albuterol sulfate 90 mcg/actuation aerosol powdr breath activated 2 inh INHALATION Q6H PRN (Reason: shortness of breath or wheezing) Qty: 1 RF: 0 ondansetron HCl [Zofran] 4 mg tablet 4 mg PO Q8H Qty: 20 RF: 0 Multiple Vitamins Tablet 1 tab PO DAILY RF: 0 folic acid 400 mcg Tablet 800 mcg PO DAILY RF: 0 Tylenol Extra Strength 500 mg Tablet 1,000 mg PO PRN RF: 0 Discontinued Xarelto 15 mg tablet 15 mg PO BID 21 Days Qty: 42 RF: 0 Referrals: [facility] Outpatient Surgery Department [Other] - 06/06/20 10:00 am (You are scheduled to begin coming in to [facility] Outpatient Surgery department to get your IV medication. Please arrive at the ER entrance tomorrow, 06/06/20 and check in there. If you have any questions or concerns, you may call the phone number provided.) Shaq Wallace MD [Physician] - 06/09/20 9:00 am (CBC, CMP on follow-up) Discharge Diet: Regular Discharge Activity: Increase activity as tolerated Activity Restrictions/Additional Instructions: Take all medicine as prescribed Follow-up with your primary care provider as noted Discharge Attestations Time Spent in Discharge Care*: greater than 30 min Quality Metrics Clinical Quality Measures During this hospital stay, did patient experience: None Coding Level of Care Code Acute Classification Counselor for g Fwd Diagnoses Sepsis A41.9 Gram-negative bacteremia R78.81 Pyelonephritis of right kidney N12 UTI (urinary tract infection) N39.0 Pulmonary emboli I26.99 Renal infarct N28.0 Leukopenia D72.819 Thrombocytopenia D69.6 Transaminitis R74.01 Hyponatremia E87.1 Vitamin B12 deficiency anemia D51.9 PSVT (paroxysmal supraventricular tachycardia) I47.1 Alcohol abuse F10.10
[2020-06-05] MEDS: cefTRIAXone 1,000 MG in sodium chloride 0.9% (plus) 50 ML 100 MG IV (13:41)
--- NOTE | 2020-06-05 14:49 | PC.SOCIAL ---
Jeffrey didn't have the starter pack on Xarelto therefore per Dr Marcelle gill to call in 15mg BID for 21 days and then transition to 20mg once daily for 30 days with no refills further refills per PCP.
--- NOTE | 2020-06-05 15:39 | PC.NURSE ---
Discharge instructions given per the physician's orders. Patient verbalized understanding and did not have any further questions. PICC line drsg changed today, tolerated well. Patient educated on Central line safety, verbalize understanding. Patient to pick her up. Patient dressed self. peripheral IV is removed. No needs identified at this time.
[2020-06-06 14:58] LABS: Heparin Induced Platelet AB NEGATIVE (NEGATIVE); Patient O.D 0.037
[2020-06-08 10:27] LABS: Partial Thromboplastin Time, A 29 sec (23-32)
[2020-06-08 10:57] LABS: Factor Viii, Activity 190 % normal (50-180)
[2020-06-08 17:04] LABS: DNA AB (DS) CRITHIDIA,IFA NEGATIVE (NEGATIVE)
[2020-06-08 17:58] LABS: Von Willebrand Factor Ag >300 % (50-217)
[2020-06-08 20:58] LABS: Von Willebrand Factor (Rcf) 331 % normal (42-200)
[2020-06-08 21:28] LABS: UFH High Dose, 100 IU/ML 0 % release; UFH Low Dose, 0.1 IU/ML 0 % release; UFH Low Dose, 0.5 IU/ML 0 % release; UFH SRA Result NEGATIVE (NEGATIVE)
[2020-06-09 00:52] LABS: PROTEIN S, ACTIVITY 104 % normal (60-140)
[2020-06-10 02:23] LABS: PROTEIN C, ACTIVITY 61 % (70-180)
== END 2020-06-05 15:41 | disposition home or self-care (01) | DRG 871 ==
LOC: ER 18:05 → MEDSURG 19:51 → CSU 21:30
PROVIDERS: Emergency Medicine; Hospitalist; Nurse Practitioner Family; Student in an Organized Health Care Education/Training Program; Admitting Provider Family Medicine; PCP Nurse Practitioner Family; Visit Provider Internal Medicine
DX: A41.9 Sepsis, unspecified organism (principal); I26.99 Other pulmonary embolism without acute cor pulmonale; I50.30 Unspecified diastolic (congestive) heart failure; N12 Tubulo-interstitial nephritis, not specified as acute or chronic; N39.0 Urinary tract infection, site not specified; E87.1 Hypo-osmolality and hyponatremia; I47.1 Supraventricular tachycardia; Z86.718 Personal history of other venous thrombosis and embolism; Z86.711 Personal history of pulmonary embolism; I11.0 Hypertensive heart disease with heart failure; M79.7 Fibromyalgia; G89.29 Other chronic pain; F10.10 Alcohol abuse, uncomplicated; Z87.440 Personal history of urinary (tract) infections; K21.9 Gastro-esophageal reflux disease without esophagitis; M48.02 Spinal stenosis, cervical region; D51.9 Vitamin B12 deficiency anemia, unspecified; F17.210 Nicotine dependence, cigarettes, uncomplicated; K76.0 Fatty (change of) liver, not elsewhere classified; Z79.51 Long term (current) use of inhaled steroids; T45.516A Underdosing of anticoagulants, initial encounter; Z91.128 Patient's intentional underdosing of medication regimen for other reason; D69.6 Thrombocytopenia, unspecified; M54.9 Dorsalgia, unspecified; E83.42 Hypomagnesemia; B96.20 Unspecified Escherichia coli [E. coli] as the cause of diseases classified elsewhere; E87.6 Hypokalemia
CPT/HCPCS: 12345; 36415; 36569; 36592; 71045; 71275; 74177; 80053; 80061; 80307; 80500; 81001; 81025; 82436; 82570; 82728; 83036; 83540; 83550; 83605; 83735; 84100; 84145; 84300; 84443; 85025; 85049; 85240; 85245; 85246; 85303; 85306; 85378; 85384; 85610; 85651; 85730; 86140; 87040; 87077; 87086; 87186; 87205; 87635; 87641; 93970; 94640; 94664; 96372; 96375; 97110; 97116; 97161; 99283; G0378; J0696; J0743; J1170; J1885; J2270; J2405; J3411; J3535; J7030; Q9967

== ENCOUNTER 2020-06-17 07:30 | Outpatient (RCR) | payer SELFPAY ==
[2020-06-06 09:20] VITALS: BP 103/68; PULSE 102; RESP 18; TEMP 36.8; O2SAT 99
[2020-06-06] MEDS: cefTRIAXone 2,000 MG in sodium chloride 0.9% (plus) 50 ML 100 MG IV (09:20)
[2020-06-07] MEDS: cefTRIAXone 2,000 MG in sodium chloride 0.9% (plus) 50 ML 100 MG IV (09:25)
[2020-06-07 09:40] VITALS: BP 118/82; PULSE 100; RESP 18; TEMP 36.3; O2SAT 100
[2020-06-08 09:17] VITALS: BP 123/84; PULSE 90; RESP 20; TEMP 36.6; O2SAT 98
[2020-06-08] MEDS: cefTRIAXone 2,000 MG in sodium chloride 0.9% (plus) 50 ML 100 MG IV (09:19)
[2020-06-09] MEDS: cefTRIAXone 2,000 MG in sodium chloride 0.9% (plus) 50 ML 100 MG IV (10:35)
[2020-06-09 10:48] VITALS: BP 133/89; PULSE 85; RESP 18; TEMP 36.8; O2SAT 99
[2020-06-10] MEDS: cefTRIAXone 2,000 MG in sodium chloride 0.9% (plus) 50 ML 100 MG IV (09:14)
[2020-06-10 09:48] VITALS: BP 132/98; PULSE 72; RESP 18; TEMP 36.8; O2SAT 96
[2020-06-11 07:37] VITALS: BP 117/91; PULSE 93; RESP 18; TEMP 36.3; O2SAT 99
[2020-06-11] MEDS: cefTRIAXone 2,000 MG in sodium chloride 0.9% (plus) 50 ML 100 MG IV (07:37)
[2020-06-12] MEDS: cefTRIAXone 2,000 MG in sodium chloride 0.9% (plus) 50 ML 100 MG IV (07:40)
[2020-06-12 07:41] VITALS: BP 131/85; PULSE 100; RESP 18; TEMP 36.4; O2SAT 100
[2020-06-13 07:25] VITALS: BP 157/102; PULSE 91; RESP 18; TEMP 36.2; O2SAT 100
[2020-06-13] MEDS: cefTRIAXone 2,000 MG in sodium chloride 0.9% (plus) 50 ML 100 MG IV (07:30)
[2020-06-14] MEDS: cefTRIAXone 2,000 MG in sodium chloride 0.9% (plus) 50 ML 100 MG IV (07:35)
[2020-06-14 07:38] VITALS: BP 124/94; PULSE 100; RESP 18; TEMP 36.3; O2SAT 100
[2020-06-15] MEDS: cefTRIAXone 2,000 MG in sodium chloride 0.9% (plus) 50 ML 100 MG IV (07:30)
[2020-06-15 07:31] VITALS: BP 133/97; PULSE 76; RESP 20; TEMP 36.5; O2SAT 98
[2020-06-16] MEDS: cefTRIAXone 2,000 MG in sodium chloride 0.9% (plus) 50 ML 100 MG IV (07:35)
[2020-06-16 07:40] VITALS: BP 118/100; PULSE 100; RESP 20; TEMP 36.3; O2SAT 100
[2020-06-17] MEDS: cefTRIAXone 2,000 MG in sodium chloride 0.9% (plus) 50 ML 100 MG IV (07:32)
[2020-06-17 07:38] VITALS: BP 134/90; PULSE 91; RESP 18; TEMP 36.1; O2SAT 100
== END 2020-06-29 23:59 | disposition home or self-care (01) ==
LOC: OPS 07:30
PROVIDERS: PCP Nurse Practitioner Family; Visit Provider Radiology Diagnostic Radiology
DX: N12 Tubulo-interstitial nephritis, not specified as acute or chronic (principal)
CPT/HCPCS: 81003; 96365; J0696

== ENCOUNTER 2020-06-25 17:44 | Emergency (ER) | payer SELFPAY ==
[2020-06-25 17:52] VITALS: BP 121/83; PULSE 88; RESP 18; O2SAT 97; BMI 22.8
--- NOTE | 2020-06-25 18:06 | ED_ITS ---
HPI - General Adult General: Chief complaint: General Medical Stated complaint: bp issues Time Seen by Provider: 06/25/20 17:54 Source: patient Mode of arrival: ambulatory Limitations: no limitations History of Present Illness: HPI narrative: 45-year-old female comes in today for complaints of chest discomfort and weakness. Patient does admit that she has been drinking alcohol today which is her normal. Patient is a alcoholic. Patient reports history of blood clot in the lung. Patient does take routine anticoagulant. Patient denies abnormal bleeding. Respirations are even. Skin is warm and dry color is pink. Associated symptoms: Reports chest pain and malaise Review of Systems General: Reports: 10 or more systems reviewed and unremarkable except in HPI and below Const: Reports: malaise Card: Reports: chest pain PFSH ED PFSH: Medical History Dyshidrotic hand dermatitis Fibromyalgia GERD (gastroesophageal reflux disease) H/O HTN (hypertension) Migraine without aura, not intractable, without status migrainosus PSVT (paroxysmal supraventricular tachycardia) Recurrent UTI Renal infarct Spinal stenosis, cervical region Vitamin B12 deficiency anemia Vitamin D deficiency Surgical History H/O colonoscopy 2018 - normal History of hysterectomy with bilateral oophorectomy History of radiofrequency ablation (RFA) procedure for cardiac arrhythmia Hx of appendectomy S/P carpal tunnel release S/P tubal ligation Family History Mother Atrial fibrillation Hypertension Social History Smoking and tobacco status: current every day smoker cigarettes Packs smoked per day: 0.5 Years cigarettes smoked: 30 Alcohol intake: current Alcohol intake frequency: 0-2 Drinks per Day Lives independently: Yes Household members: spouse and family Marital status: service: No Current occupational status: unemployed History of recent travel: No Current gender identity: Female Female Reproductive History: Date of last menstrual period: 07/31/10 Physical Exam Const: COMMON NORMALS: no acute distress and patient oriented x3 GENERAL APPEARANCE: cooperative HENMT: COMMON NORMALS: normocephalic and Normal external nose present HEAD & SCALP: normal to inspection and normocephalic NOSE: Normal external nose present MOUTH: Normal oral and palatal mucosa present THROAT: posterior oropharynx normal Eye: GENERAL EYE: appearance normal, both eyes and all related structures Neck/C-Spine: COMMON NORMALS: full ROM Lymph: LYMPHATIC: no lymphadenopathy noted Chest: COMMONS NORMALS: normal inspection of the chest Resp: COMMON NORMALS: normal respiratory effort EFFORT & INSPECTION: Yes able to speak in complete sentences Cardio: COMMON NORMALS: regular rate and regular rhythm RATE: regular rate RHYTHM: regular rhythm GI: COMMON NORMALS: non-tender Back/Pelvis: COMMON NORMALS: thoracic and lumbar spine normal to inspection Extremity: COMMON NORMALS: normal to inspection Neuro: COMMON NORMALS: patient oriented x3 and moves all extremities Psych: COMMON NORMALS: mental status grossly normal and cooperative Skin: COMMON NORMALS: no rashes or lesions noted GENERAL SKIN EXAM: no rashes or lesions noted Course Vital Signs: Vital signs: Vital Signs Pulse Rate 85 06/25/20 21:01 Respiratory Rate 17 06/25/20 21:01 Blood Pressure 112/77 06/25/20 21:01 Pulse Oximetry 96 06/25/20 21:01 MDM - General Adult MDM Narrative: Medical decision making narrative: 45-year-old female comes in today with some abnormal chest discomfort. Patient is worried that her blood thinner has been to her blood too much. Patient this time is on Xarelto for PE treatment. Patient appears well. Patient appears intoxicated. Patient does admit that she had drinking alcohol. Lungs are clear to auscultation. Vital signs are normal. Skin is warm and dry. Abdomen soft nontender. Differential diagnosis includes but not limited to worsening PE, ACS, gastritis. Patient denies any abnormal bleeding in the vomit or in the stool. Vital signs were stable throughout visit. Troponin was negative at the 2-hour draw. Lungs on chest x-ray were normal. Remainder labs are unremarkable except for some low ANC at 0.6. Remainder of labs are unremarkable. Orthostatic blood pressures were normal. Patient was given a 500 mill bolus of fluids and given 100 mg of thiamine IV. Reviewed exam and laboratory values with patient. Reassured her that we had seen no signs of worsening pulmonary embolism. It also noted no signs of abnormal bleeding or acute coronary syndrome. Discussed patient's need to try to limit alcohol use. Patient is a longstanding alcoholic. Patient reported understanding of care plan. Recommended patient follow-up with primary care for further treatment and evaluation. Lab Data: Labs: Lab Results 06/25/20 06/25/20 06/25/20 Range/Units 18:42 18:42 18:42 WBC 4.1 (4.0-10.0) 10^3/ uL RBC 3.46 L (4.1-5.3) 10^6/u L Hgb 12.3 (11.5-15.3) g/dL Hct 36.8 L (37.0-47.0) % MCV 106.4 H (81-99) fL MCH 35.5 H (28.0-34.0) pg MCHC 33.4 (30.0-36.0) g/dL RDW 15.9 H (12.1-15.1) % Plt Count 109 L (130-400) 10^3/c mm MPV 10.3 (7.4-10.4) fL Neut % (Auto) 14.9 % Lymph % (Auto) 74.7 % [place] % (Auto) 5.2 % Eos % (Auto) 3.7 % Baso % (Auto) 1.5 % Neut # (Auto) 0.61 L* (1.8-7.7) 10^3/u L Lymph # (Auto) 3.0 (0.8-4.8) 10^3/u L [place] # (Auto) 0.2 (0.2-0.9) 10^3/u L Eos # (Auto) 0.2 (0.0-0.8) 10^3/u L Baso # (Auto) 0.1 (0.0-0.1) 10^3/u L Nucleated RBC % (a uto) 0 % Nucleated RBCs # 0.0 /100WBC PT 16.80 H (12.1-14.9) SECO NDS INR 1.32 H (0.8-1.2) D-Dimer 0.75 H (0-0.59) ug/mIFE U Sodium 139 (136-145) mmol/L Potassium 3.7 (3.5-5.1) mmol/L Chloride 103 (98-107) mmol/L Carbon Dioxide 24 (22-29) mmol/L Anion Gap 15.7 (5-19) BUN 6 (6-20) mg/dL Creatinine 0.8 (0.5-0.9) mg/dL GFR Calculation 77.2 L (90-130) mL/min Glucose 93 (65-115) mg/dL Calculated Osmolal ity 285 (285-295) mOsm/k g Calcium 8.8 (8.5-10.5) mg/dL Total Bilirubin 0.3 (0.15-1.2) mg/dL AST 58 H (0-32) U/L ALT 26 (0-33) U/L Alkaline Phosphata se 168 H (35-105) IU/L Troponin T Gen 5 n g/L (0-10) ng/L Troponin T 120 Min [place] (0-10) ng/L Delta Troponin T (0-10) ABS# Total Protein 7.3 (6.6-8.7) g/dL Albumin 3.7 (3.5-5.2) g/dL Globulin 3.6 (1.3-4.6) g/dL Ethyl Alcohol 244 H (0-10) mg/dL 06/25/20 06/25/20 Range/Units 18:42 20:53 WBC (4.0-10.0) 10^3/ uL RBC (4.1-5.3) 10^6/u L Hgb (11.5-15.3) g/dL Hct (37.0-47.0) % MCV (81-99) fL MCH (28.0-34.0) pg MCHC (30.0-36.0) g/dL RDW (12.1-15.1) % Plt Count (130-400) 10^3/c mm MPV (7.4-10.4) fL Neut % (Auto) % Lymph % (Auto) % [place] % (Auto) % Eos % (Auto) % Baso % (Auto) % Neut # (Auto) (1.8-7.7) 10^3/u L Lymph # (Auto) (0.8-4.8) 10^3/u L [place] # (Auto) (0.2-0.9) 10^3/u L Eos # (Auto) (0.0-0.8) 10^3/u L Baso # (Auto) (0.0-0.1) 10^3/u L Nucleated RBC % (a uto) % Nucleated RBCs # /100WBC PT (12.1-14.9) SECO NDS INR (0.8-1.2) D-Dimer (0-0.59) ug/mIFE U Sodium (136-145) mmol/L Potassium (3.5-5.1) mmol/L Chloride (98-107) mmol/L Carbon Dioxide (22-29) mmol/L Anion Gap (5-19) BUN (6-20) mg/dL Creatinine (0.5-0.9) mg/dL GFR Calculation (90-130) mL/min Glucose (65-115) mg/dL Calculated Osmolal ity (285-295) mOsm/k g Calcium (8.5-10.5) mg/dL Total Bilirubin (0.15-1.2) mg/dL AST (0-32) U/L ALT (0-33) U/L Alkaline Phosphata se (35-105) IU/L Troponin T Gen 5 n g/L 21 H (0-10) ng/L Troponin T 120 Min roberta 19.00 H (0-10) ng/L Delta Troponin T -2 L (0-10) ABS# Total Protein (6.6-8.7) g/dL Albumin (3.5-5.2) g/dL Globulin (1.3-4.6) g/dL Ethyl Alcohol (0-10) mg/dL EKG Data^: EKG 1: Attestation: I personally reviewed and interpreted this EKG as follows: (1824, SR regular rate @81 bpm, no change from 10/16/17, no ST elevation or ectopy noted. ) Computer generated interpretation: Chest X-Ray 06/25/20 18:10 IMPRESSION: No acute finding. EKG 2: Attestation: I personally reviewed and interpreted this EKG as follows: (1944, sinus rhythm at 85 bpm regular rate, no ectopy, no ST elevation, no change from prior exam.) Computer generated interpretation: Chest X-Ray 06/25/20 18:10 IMPRESSION: No acute finding. Discharge Plan Discharge Patient Disposition: Home Clinical Impression: Atypical chest pain Condition: Stable Prescriptions: No Action methenamine hippurate 1 gram tablet 1 g PO BID Qty: 60 RF: 6 omeprazole magnesium [Prilosec OTC] 20 mg Tablet,Delayed Release (Dr/Ec) 20 mg PO DAILY RF: 0 cetirizine [Zyrtec] 10 mg Tablet 10 mg PO BID RF: 0 diphenhydramine HCl [Benadryl Allergy] 25 mg Tablet 25 mg PO PRN RF: 0 thiamine mononitrate (vit B1) [Vitamin B-1 (mononitrate)] 100 mg Tablet 100 mg PO DAILY Qty: 30 RF: 0 Vitamin B-12 2 tab PO DAILY RF: 0 ondansetron HCl [Zofran] 4 mg tablet 4 mg PO Q8H Qty: 20 RF: 0 multivitamin [Multiple Vitamins] Tablet 1 tab PO DAILY RF: 0 folic acid 400 mcg Tablet 800 mcg PO DAILY RF: 0 acetaminophen [Tylenol Extra Strength] 500 mg Tablet 1,000 mg PO PRN RF: 0 Xarelto DVT-PE Treat 30d Start 15 mg (42)- 20 mg (9) tablets,dose pack See Rx Instructions .ROUTE .COMPLEX Qty: 51 RF: 0 ceftriaxone 2 gram recon soln 2 gm IV Q24H Qty: 12 RF: 0 Discharge Orders: Discharge Order (Routine); Ordered 06/25/20 Ordered By: Galdino Snadoval Discharge Diet: Usual diet Discharge Activity: Increase activity as tolerated Patient Instructions: Chest Pain (ED) Activity Restrictions/Additional Instructions: Home and rest. Continue with routine care. Take usual medication. Avoid drinking more than 2 alcoholic beverages a day. Follow-up with primary care for further treatment. Return to the emergency department for new concerns. Coding Level of Care Code ED Enforcement Officer for Apryl Salas 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
--- NOTE | 2020-06-25 18:10 | XRR_ITS ---
PROCEDURE INFORMATION: Exam: XR Chest, 1 View Exam date and time: 06/25/2020 6:59 PM Age: 45 years old Clinical indication: Pain; Chest pressure; Additional info: Chest discomfort TECHNIQUE: Imaging protocol: XR of the chest Views: 1 view. COMPARISON: CR XR chest 1V portable [id number] 06/04/2020 2:20 PM FINDINGS: Lungs: Mild crowding in the lung bases due to shallow inspiration. The lungs are otherwise clear. No consolidation. Pleural space: Unremarkable. No pleural effusion. No pneumothorax. Heart/Mediastinum: Unremarkable. No cardiomegaly. Bones/joints: Unremarkable. XR/XR chest 1V portable [id number] IMPRESSION: No acute finding.
--- NOTE | 2020-06-25 18:14 | ECG_ITS ---
"[facility] Test Date: 2020-06-25 Pat Name: Denisa Orourke Department: Room: Gender: Female Biometrics Head: : 1975 Requested By: Galdino Pina Order Number: [id number] Valerie MD: DM MEJIA Measurements Intervals [place] Rate: 79 P: 55 NC: 179 QRS: 33 QRSD: 104 T: 69 QT: 409 QTc: 470 Interpretive Statements SINUS RHYTHM INCOMPLETE RIGHT BUNDLE BRANCH BLOCK [90+ ms QRS DURATION, TERMINAL R IN V1/V2, 40+ ms S IN I/aVL/V4/V5/V6] Compared to ECG 05/30/2020 11:02:33 Incomplete right bundle-branch block now present Sinus tachycardia no longer present T-wave abnormality no longer present Possible ischemia no longer present Electronically Signed On 06-26-2020 20:05:49 SENIOR QA AUTOMATION ENGINEER by DM MEJIA [id number]"
[2020-06-25] MEDS: sodium chloride 0.9% 500 ML 999 ML IV (18:48)
[2020-06-25 18:54] LABS: Basophils # 0.1 10^3/uL (0.0-0.1); Basophils % 1.5 %; Eosinophils # 0.2 10^3/uL (0.0-0.8); Eosinophils % 3.7 %; Hematocrit 36.8 % (37.0-47.0); Hemoglobin 12.3 g/dL (11.5-15.3); Lymphocytes % 74.7 %; Mean Corpuscular HGB Conc 33.4 g/dL (30.0-36.0); Mean Corpuscular Hemoglobin 35.5 pg (28.0-34.0); Mean Corpuscular Volume 106.4 fL (81-99); Mean Platelet Volume 10.3 fL (7.4-10.4); Monocytes # 0.2 10^3/uL (0.2-0.9); Monocytes % 5.2 %; Neutrophils % 14.9 %; Nucleated Red Blood Cells % 0 %; Platelet Count 109 10^3/cmm (130-400); Red Blood Count 3.46 10^6/uL (4.1-5.3); Red Cell Distribution Width 15.9 % (12.1-15.1); White Blood Count 4.1 10^3/uL (4.0-10.0)
[2020-06-25 19:03] LABS: INR 1.32 (0.8-1.2); Neutrophils # 0.61 10^3/uL (1.8-7.7)
[2020-06-25 19:06] LABS: D Dimer 0.75 ug/mIFEU (0-0.59)
[2020-06-25 19:08] LABS: Alanine Aminotransferase 26 U/L (0-33); Albumin Level 3.7 g/dL (3.5-5.2); Alcohol Level 244 mg/dL (0-10); Alkaline Phosphatase 168 IU/L (35-105); Anion Gap 15.7 (5-19); Aspartate Amino Transferase 58 U/L (0-32); Blood Urea Nitrogen 6 mg/dL (6-20); Calcium 8.8 mg/dL (8.5-10.5); Carbon Dioxide 24 mmol/L (22-29); Chloride 103 mmol/L (98-107); Globulin 3.6 g/dL (1.3-4.6); Glomerular Filtration Rate 77.2 mL/min (90-130); Glucose 93 mg/dL (65-115); Osmolality Calculated 285 mOsm/kg (285-295); Potassium 3.7 mmol/L (3.5-5.1); Sodium 139 mmol/L (136-145); Total Bilirubin 0.3 mg/dL (0.15-1.2); Total Protein 7.3 g/dL (6.6-8.7)
[2020-06-25 19:11] LABS: Troponin T (5th) Once 21 ng/L (0-10)
[2020-06-25 19:16] VITALS: BP 120/84; BP 122/89; BP 126/94; PULSE 86; PULSE 95; PULSE 97
[2020-06-25 19:27] VITALS: BP 122/67; O2SAT 98
[2020-06-25] MEDS: ketorolac 30 mg/mL INJ 15 MG IVP (19:46)
[2020-06-25 21:01] VITALS: BP 112/77; PULSE 85; RESP 17; O2SAT 96
--- NOTE | 2020-06-25 21:14 | ECG_ITS ---
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: : 1975 Requested By: Galdino Pina Order Number: [id number] Valerie MD: DM MEJIA Measurements Intervals [place] Rate: 85 P: [place]: QRS: 20 QRSD: 110 T: 59 QT: 409 QTc: 488 Interpretive Statements Sinus rhythm INCOMPLETE RIGHT BUNDLE BRANCH BLOCK [90+ ms QRS DURATION, TERMINAL R IN V1/V2, 40+ ms S IN I/aVL/V4/V5/V6] ABNORMAL RHYTHM ECG Compared to ECG 06/25/2020 18:20:06 Sinus rhythm no longer present Electronically Signed On 06-26-2020 20:09:04 STEWARD/STEWARDESS SMOKE ROOM by DM MEJIA [email or web address]
[2020-06-25 21:22] LABS: Troponin 5 2HR Delta -2 ABS# (0-10)
[2020-06-25 21:39] VITALS: BP 109/78; PULSE 91; RESP 17; O2SAT 97
== END 2020-06-25 21:40 | disposition home or self-care (01) ==
PROVIDERS: Emergency Provider Nurse Practitioner Family
DX: R07.89 Other chest pain (principal); F17.210 Nicotine dependence, cigarettes, uncomplicated; I10 Essential (primary) hypertension
CPT/HCPCS: 12345; 71045; 80053; 80307; 84484; 85025; 85378; 85610; 93005; 96374; 96375; 99282; 99283; J1885; J3411; J7040

== ENCOUNTER 2020-08-03 11:19 | Emergency (ER) | payer SELFPAY ==
[2020-08-03 11:21] VITALS: BP 146/109; PULSE 82; RESP 18; TEMP 36.4; O2SAT 100; BMI 22.0
--- NOTE | 2020-08-03 12:44 | W.ED.URI ---
HPI - URI/Sore Throat General: Chief Complaint: Upper Respiratory Infection Stated Complaint: SINUS ISSUES Time Seen by Provider: 08/03/20 12:12 Source: patient Mode of arrival: ambulatory Limitations: no limitations History of Present Illness: HPI Narrative: Patient is a 45-year-old female who presents to ED today with complaints of head pressure and pain around her maxillary and frontal sinuses that she has had over the past few days. Patient tells me she is blowing diffuse amounts of drainage out of her nose. She states her nares feel raw and will sometimes bleed. She is having a productive cough but feels this is most likely from the postnasal drainage. She is not having any chest pain or shortness of breath. She is not having any visual changes, or severe headache. Associated symptoms: Reports nasal congestion and sinus pain; Deny abdominal pain, chills, chest pain, diarrhea, ear or mastoid pain, fever(s), headache(s), nausea or vomiting Review of Systems Const: Denies: fever(s), chills, body aches, change in appetite, change in weight, fatigue or malaise Eyes: Denies: change in vision, blurry vision, photophobia, eye discomfort or eye discharge ENMT: Reports: nasal discharge, nasal congestion, post nasal drip and sinus pain; Denies: throat pain, enlarged tonsils, odynophagia, swelling of lips/tongue, oral sores, dental pain, ear or mastoid pain, ear discharge, tinnitus or disequilibrium Card: Denies: chest pain, palpitations, irregular heart rhythm, edema, lightheadedness, syncope or pre-syncope Resp: Denies: dyspnea, productive cough, non-productive cough, hemoptysis or chest congestion GI: Denies: abdominal pain, nausea, vomiting or diarrhea Musc: Denies: neck pain Skin/Breast: Denies: rash Neuro: Denies: headache(s), dizziness or vertigo All/Imm: Denies: facial swelling or seasonal rhinorrhea [facility] ED PFSH: Medical History (Updated 08/03/20 @ 12:44 by SALLY Ceja) Back pain CKD (chronic kidney disease) stage 2, GFR 60-89 ml/min Dyshidrotic hand dermatitis Fibromyalgia GERD (gastroesophageal reflux disease) Gram-negative bacteremia H/O HTN (hypertension) Hypothyroidism (acquired) Macrocytosis Migraine without aura, not intractable, without status migrainosus PSVT (paroxysmal supraventricular tachycardia) Pulmonary emboli Recurrent UTI Renal infarct Spinal stenosis, cervical region Transaminitis Vitamin B12 deficiency anemia Vitamin D deficiency Surgical History H/O colonoscopy 2018 - normal History of hysterectomy with bilateral oophorectomy History of radiofrequency ablation (RFA) procedure for cardiac arrhythmia Hx of appendectomy S/P carpal tunnel release S/P tubal ligation Family History Mother Atrial fibrillation Hypertension Social History Smoking and tobacco status: current every day smoker cigarettes Packs smoked per day: 0.5 Years cigarettes smoked: 30 Alcohol intake: current Alcohol intake frequency: 0-2 Drinks per Day Lives independently: Yes Household members: spouse and family Marital status: service: No Current occupational status: unemployed History of recent travel: No Current gender identity: Female Female Reproductive History: Date of last menstrual period: 07/31/10 Physical Exam Const: COMMON NORMALS: no acute distress, average body habitus, patient oriented x3, no limitations, alert and well nourished GENERAL APPEARANCE: cooperative ORIENTATION/CONSCIOUSNESS: Yes awake, Yes oriented to person, Yes oriented to place and Yes oriented to time HENMT: COMMON NORMALS: normocephalic, atraumatic, hearing grossly normal bilaterally, external ears normal, EAC's normal, TM's normal bilaterally, Normal external nose present, moist oral mucous membranes and oropharynx normal HEAD & SCALP: normal to inspection, normocephalic and atraumatic FACE & SINUS: sinus tenderness frontal and maxillary NOSE: Normal external nose present and Abnormal mucous membranes and turbinates present erythematous EXTERNAL EAR: Yes external ears normal EXTERNAL AUDITORY CANAL: EAC's normal TYMPANIC MEMBRANE: TM's normal bilaterally THROAT: posterior oropharynx normal, tonsils normal and uvula midline Eye: COMMON NORMALS: Equal, round and reactive pupils present, EOMs intact bilaterally and conjunctivae normal GENERAL EYE: appearance normal, both eyes and all related structures CONJUNCTIVA: Yes conjunctivae normal PUPIL: Yes Equal, round and reactive pupils present Neck/C-Spine: COMMON NORMALS: full ROM and no lymphadenopathy Resp: COMMON NORMALS: normal respiratory effort and clear to auscultation bilaterally AUSCULTATION: clear to auscultation bilaterally Cardio: COMMON NORMALS: regular rate and regular rhythm RATE: regular rate RHYTHM: regular rhythm Neuro: COMMON NORMALS: patient oriented x3 SENSORIUM/ORIENTATION: Yes alert, Yes oriented to person, Yes oriented to place and Yes oriented to time Skin: COMMON NORMALS: no rashes or lesions noted GENERAL SKIN EXAM: no rashes or lesions noted Course Vital Signs: Vital signs: Vital Signs Temperature 97.5 F L 08/03/20 11:21 Pulse Rate 82 08/03/20 11:21 Respiratory Rate 18 08/03/20 11:21 Blood Pressure 146/109 08/03/20 11:21 Pulse Oximetry 100 08/03/20 11:21 Discharge Plan Discharge Patient Disposition: Home Clinical Impression: Sinusitis Qualifiers: Sinusitis location: maxillary Chronicity: acute Recurrence: non-recurrent Qualified Code(s): J01.00 - Acute maxillary sinusitis, unspecified Condition: Stable Prescriptions: New Augmentin 875-125 mg tablet 1 tab PO Q12H 7 Days Qty: 14 RF: 0 No Action methenamine hippurate 1 gram tablet 1 g PO BID Qty: 60 RF: 6 omeprazole magnesium [Prilosec OTC] 20 mg Tablet,Delayed Release (Dr/Ec) 20 mg PO DAILY RF: 0 cetirizine [Zyrtec] 10 mg Tablet 10 mg PO BID RF: 0 diphenhydramine HCl [Benadryl Allergy] 25 mg Tablet 25 mg PO PRN RF: 0 thiamine mononitrate (vit B1) [Vitamin B-1 (mononitrate)] 100 mg Tablet 100 mg PO DAILY Qty: 30 RF: 0 Vitamin B-12 2 tab PO DAILY RF: 0 ondansetron HCl [Zofran] 4 mg tablet 4 mg PO Q8H Qty: 20 RF: 0 multivitamin [Multiple Vitamins] Tablet 1 tab PO DAILY RF: 0 folic acid 400 mcg Tablet 800 mcg PO DAILY RF: 0 acetaminophen [Tylenol Extra Strength] 500 mg Tablet 1,000 mg PO PRN RF: 0 Xarelto DVT-PE Treat 30d Start 15 mg (42)- 20 mg (9) tablets,dose pack See Rx Instructions .ROUTE .COMPLEX Qty: 51 RF: 0 ceftriaxone 2 gram recon soln 2 gm IV Q24H Qty: 12 RF: 0 Discharge Orders: Discharge ED (Routine); Ordered 08/03/20 Ordered By: Missy Shah Referrals: ASH Lopez, QUENCHER OPERATOR [Primary Care Provider] - Coding Level of Care Code ED E Commerce Marketing Analyst for Apryl Salas
== END 2020-08-03 12:58 | disposition home or self-care (01) ==
PROVIDERS: Emergency Provider Physician Assistant; PCP Nurse Practitioner Family
DX: J01.00 Acute maxillary sinusitis, unspecified (principal); I12.9 Hypertensive chronic kidney disease with stage 1 through stage 4 chronic kidney disease, or unspecified chronic kidney disease; N18.2 Chronic kidney disease, stage 2 (mild); F17.210 Nicotine dependence, cigarettes, uncomplicated
CPT/HCPCS: 12345; 99281

== ENCOUNTER 2020-08-22 17:44 | Emergency (ER) | payer SELFPAY ==
[2020-08-22 17:54] VITALS: BP 116/77; PULSE 85; RESP 14; TEMP 36.7; O2SAT 100; BMI 21.6
--- NOTE | 2020-08-22 18:01 | XRR_ITS ---
PROCEDURE INFORMATION: Exam: XR Chest, 1 View Exam date and time: 08/22/2020 6:13 PM Age: 45 years old Clinical indication: Chest pain TECHNIQUE: Imaging protocol: XR of the chest Views: 1 view. COMPARISON: CR XR chest 1V portable [id number] 06/25/2020 6:49 PM FINDINGS: Lungs: Unremarkable. No consolidation. Pleural space: Unremarkable. No pleural effusion. No pneumothorax. Heart/Mediastinum: Unremarkable. No cardiomegaly. Bones/joints: Unremarkable. XR/XR chest 1V portable [id number] IMPRESSION: No acute findings.
--- NOTE | 2020-08-22 18:01 | ECG_ITS ---
[facility] Test Date: 2020-08-22 Pat Name: Denisa Orourke Department: Room: Gender: Female Miller Supervisor: ALEA ANTHONYB: 1975 Requested By: Galdino Pina Order Number: [id number] Reading MD: DM MEJIA Measurements Intervals [place] Rate: 83 P: 61 AL: 186 QRS: 40 QRSD: 89 T: 59 QT: 380 QTc: 448 Interpretive Statements SINUS RHYTHM POSSIBLE RIGHT VENTRICULAR CONDUCTION DELAY [RSR (QR) IN V1/V2] Compared to ECG 06/25/2020 19:44:12 Incomplete right bundle-branch block no longer present Electronically Signed On 08-22-2020 18:15:38 CENTRIFUGAL WAX MOLDER by DM MEJIA [id number]
--- NOTE | 2020-08-22 18:07 | W.ED.CHESTPA ---
HPI - Chest Pain General: Chief Complaint: Chest Pain Stated Complaint: CHEST PAIN Time Seen by Provider: 08/22/20 18:01 Source: patient Mode of arrival: ambulatory Limitations: no limitations History of Present Illness: HPI narrative: 45-year-old female comes in with left shoulder discomfort. Patient states that the pain and pressure is just there. Patient states nothing makes it better nothing makes it worse. Patient denies any injury. Patient appears well. Patient states that she was in the garage folding close when she started having some tightness in her shoulder radiating up into her neck. Patient also admits to drinking alcohol. Patient has a history of hypothyroidism, chronic kidney disease, hypertension, nicotine and alcohol abuse, and TMJ arthralgia. Patient appears in no pain at rest. Review of Systems General: Reports: 10 or more systems reviewed and unremarkable except in HPI and below Card: Reports: chest pain PFSH ED PFSH: Medical History Back pain CKD (chronic kidney disease) stage 2, GFR 60-89 ml/min Dyshidrotic hand dermatitis Fibromyalgia GERD (gastroesophageal reflux disease) Gram-negative bacteremia H/O HTN (hypertension) Hypothyroidism (acquired) Macrocytosis Migraine without aura, not intractable, without status migrainosus Nicotine abuse PSVT (paroxysmal supraventricular tachycardia) Pulmonary emboli Recurrent UTI Renal infarct Spinal stenosis, cervical region Transaminitis Vitamin B12 deficiency anemia Vitamin D deficiency Surgical History H/O colonoscopy 2018 - normal History of hysterectomy with bilateral oophorectomy History of radiofrequency ablation (RFA) procedure for cardiac arrhythmia Hx of appendectomy S/P carpal tunnel release S/P tubal ligation Family History Mother Atrial fibrillation Hypertension Social History Smoking and tobacco status: current every day smoker cigarettes Packs smoked per day: 0.5 Years cigarettes smoked: 30 Alcohol intake: current Alcohol intake frequency: 0-2 Drinks per Day Lives independently: Yes Household members: spouse and family Marital status: service: No Current occupational status: unemployed History of recent travel: No Current gender identity: Female Female Reproductive History: Date of last menstrual period: 07/31/10 Physical Exam Const: COMMON NORMALS: no acute distress and patient oriented x3 GENERAL APPEARANCE: cooperative HENMT: COMMON NORMALS: normocephalic and Normal external nose present HEAD & SCALP: normal to inspection and normocephalic NOSE: Normal external nose present MOUTH: Normal oral and palatal mucosa present THROAT: posterior oropharynx normal Eye: GENERAL EYE: appearance normal, both eyes and all related structures Neck/C-Spine: OTHER: Guarded movement of the neck, tenderness of the left paraspinous muscles. Lymph: LYMPHATIC: no lymphadenopathy noted Chest: COMMONS NORMALS: normal inspection of the chest Resp: COMMON NORMALS: normal respiratory effort EFFORT & INSPECTION: Yes able to speak in complete sentences Cardio: COMMON NORMALS: regular rate and regular rhythm RATE: regular rate RHYTHM: regular rhythm GI: COMMON NORMALS: non-tender : COMMON NORMALS: Yes no CVA tenderness BLADDER/KIDNEY EXAM: Yes no CVA tenderness Back/Pelvis: COMMON NORMALS: no CVA tenderness and thoracic and lumbar spine normal to inspection Extremity: NARRATIVE EXTREMITY EXAM: Patient has tightness and tenderness of the left trapezius muscles with increased shoulder pain on abduction. Neuro: COMMON NORMALS: patient oriented x3 and moves all extremities Psych: COMMON NORMALS: mental status grossly normal and cooperative Skin: COMMON NORMALS: no rashes or lesions noted GENERAL SKIN EXAM: no rashes or lesions noted Course Vital Signs: Vital signs: Vital Signs Temperature 98.0 F 08/22/20 17:54 Pulse Rate 85 08/22/20 19:01 Respiratory Rate 16 08/22/20 19:01 Blood Pressure 115/75 08/22/20 19:01 Pulse Oximetry 98 08/22/20 19:01 MDM - Chest Pain MDM Narrative: Medical decision making narrative: Patient comes in today with complaints of left shoulder pain. On exam patient was tender on the cervical paraspinous muscles on the left side along with the trapezius muscle. Patient also had some increased pain with abduction of the shoulder. Heart rate was regular. Lungs were clear to auscultation. Skin was warm and dry. Vital signs are normal. Differential diagnosis includes not limited to ACS, cholecystitis, muscle strain, shoulder impingement syndrome. X-ray of the chest was negative. Laboratory values were unremarkable and very similar to previous labs drawn. Troponin was negative. EKG was unchanged. With exam and clearance of labs and EKG no cardiac problems were identified. Believe the patient probably has musculoskeletal muscle strain versus impingement of the nerve which may be secondary to some intervertebral disc disease. Patient was given a dose of ketorolac for pain and will continue with muscle rub and routine [id number] pain relievers. Recommended patient follow-up with primary care for further treatment and evaluation. Patient reported understanding. Lab Data: Labs: Lab Results 08/22/20 08/22/20 08/22/20 Range/Units 18:20 18:20 18:20 WBC 4.3 (4.0-10.0) 10^3/ uL RBC 3.48 L (4.1-5.3) 10^6/u L Hgb 13.6 (11.5-15.3) g/dL Hct 39.1 (37.0-47.0) % MCV 112.4 H (81-99) fL MCH 39.1 H (28.0-34.0) pg MCHC 34.8 (30.0-36.0) g/dL RDW 16.4 H (12.1-15.1) % Plt Count 97 L (130-400) 10^3/c mm MPV 11.7 H (7.4-10.4) fL Neut % (Auto) 21.7 % Lymph % (Auto) 66.4 % [place] % (Auto) 6.1 % Eos % (Auto) 4.0 % Baso % (Auto) 1.6 % Neut # (Auto) 0.93 L* (1.8-7.7) 10^3/u L Lymph # (Auto) 2.8 (0.8-4.8) 10^3/u L [place] # (Auto) 0.3 (0.2-0.9) 10^3/u L Eos # (Auto) 0.2 (0.0-0.8) 10^3/u L Baso # (Auto) 0.1 (0.0-0.1) 10^3/u L Nucleated RBC % (a uto) 0 % Nucleated RBCs # 0.0 /100WBC PT 12.30 (12.1-14.9) SECO NDS INR 0.89 (0.8-1.2) APTT 25.2 (23.9-36.7) SECO NDS D-Dimer 0.62 H (0-0.59) ug/mIFE U Sodium Cancelled Potassium Cancelled Chloride Cancelled Carbon Dioxide Cancelled Anion Gap Cancelled BUN Cancelled Creatinine Cancelled GFR Calculation Cancelled Glucose Cancelled Calculated Osmolal ity Cancelled Calcium Cancelled Total Bilirubin Cancelled AST Cancelled ALT Cancelled Alkaline Phosphata se Cancelled Troponin T Baselin e NT-Pro-B Natriuret Pep Cancelled Total Protein Cancelled Albumin Cancelled Globulin Cancelled 08/22/20 08/22/20 08/22/20 Range/Units 18:20 18:54 18:54 WBC (4.0-10.0) 10^3/ uL RBC (4.1-5.3) 10^6/u L Hgb (11.5-15.3) g/dL Hct (37.0-47.0) % MCV (81-99) fL MCH (28.0-34.0) pg MCHC (30.0-36.0) g/dL RDW (12.1-15.1) % Plt Count (130-400) 10^3/c mm MPV (7.4-10.4) fL Neut % (Auto) % Lymph % (Auto) % [place] % (Auto) % Eos % (Auto) % Baso % (Auto) % Neut # (Auto) (1.8-7.7) 10^3/u L Lymph # (Auto) (0.8-4.8) 10^3/u L [place] # (Auto) (0.2-0.9) 10^3/u L Eos # (Auto) (0.0-0.8) 10^3/u L Baso # (Auto) (0.0-0.1) 10^3/u L Nucleated RBC % (a uto) % Nucleated RBCs # /100WBC PT (12.1-14.9) SECO NDS INR (0.8-1.2) APTT (23.9-36.7) SECO NDS D-Dimer (0-0.59) ug/mIFE U Sodium 139 Potassium 3.0 L Chloride 99 Carbon Dioxide 26 Anion Gap 17.0 BUN 6 Creatinine 0.6 GFR Calculation 107.6 Glucose 94 Calculated Osmolal ity 285 Calcium 9.0 Total Bilirubin 0.3 AST 116 H ALT 47 H Alkaline Phosphata se 149 H Troponin T Baselin e Cancelled 7 NT-Pro-B Natriuret Pep 51 Total Protein 9.4 H Albumin 4.0 Globulin 5.4 H EKG Data^: EKG 1: Attestation: I personally reviewed and interpreted this EKG as follows: (1805, EKG shows sinus rhythm, regular rate at 83 bpm, no ST elevation, no ectopy is noted, significant artifact is present on EKG. No prior exam is available for me to compare at this time.) Discharge Plan Discharge Patient Disposition: Home Clinical Impression: Strain of cervical portion of left trapezius muscle Condition: Stable Prescriptions: No Action pseudoephedrine HCl 60 mg tablet 60 mg PO Q12H PRN (Reason: nasal congestion) Qty: 30 RF: 0 ondansetron HCl [Zofran] 4 mg tablet 4 mg PO Q8H RF: 0 omeprazole magnesium [Prilosec OTC] 20 mg Tablet,Delayed Release (Dr/Ec) 20 mg PO DAILY RF: 0 cetirizine [Zyrtec] 10 mg Tablet 10 mg PO BID RF: 0 diphenhydramine HCl [Benadryl Allergy] 25 mg Tablet 25 mg PO PRN RF: 0 thiamine mononitrate (vit B1) [Vitamin B-1 (mononitrate)] 100 mg Tablet 100 mg PO DAILY Qty: 30 RF: 0 Vitamin B-12 2 tab PO DAILY RF: 0 multivitamin [Multiple Vitamins] Tablet 1 tab PO DAILY RF: 0 folic acid 400 mcg Tablet 800 mcg PO DAILY RF: 0 acetaminophen [Tylenol Extra Strength] 500 mg Tablet 1,000 mg PO PRN RF: 0 ceftriaxone 2 gram recon soln 2 gm IV Q24H Qty: 12 RF: 0 Discharge Orders: Discharge ED (Routine); Ordered 08/22/20 Ordered By: Galdino Sandoval Referrals: Jeni Monsivais MD [Primary Care Provider] - Discharge Diet: Usual diet Discharge Activity: Increase activity as tolerated Patient Instructions: Muscle Strain (ED) Activity Restrictions/Additional Instructions: Activity as tolerated. Gentle stretching and range of motion of the neck and shoulder. Use muscle rub such as Biofreeze for further pain and discomfort. Use acetaminophen and ibuprofen for pain and discomfort. Sleep with towel roll under her neck at night. Follow-up with primary care for further recommendations of treatment. Most often this muscle strain will last 7 to 10 days and recover on its own with or without medication. Return to emergency department with new concerns. Coding Level of Care Code ED Aviation Consultant for Apryl Salas 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
[2020-08-22 18:14] VITALS: BP 115/75; PULSE 76; RESP 20; O2SAT 96
[2020-08-22 18:37] LABS: Basophils # 0.1 10^3/uL (0.0-0.1); Basophils % 1.6 %; Eosinophils # 0.2 10^3/uL (0.0-0.8); Hematocrit 39.1 % (37.0-47.0); Hemoglobin 13.6 g/dL (11.5-15.3); Lymphocytes # 2.8 10^3/uL (0.8-4.8); Lymphocytes % 66.4 %; Mean Corpuscular HGB Conc 34.8 g/dL (30.0-36.0); Mean Corpuscular Hemoglobin 39.1 pg (28.0-34.0); Mean Corpuscular Volume 112.4 fL (81-99); Mean Platelet Volume 11.7 fL (7.4-10.4); Monocytes # 0.3 10^3/uL (0.2-0.9); Monocytes % 6.1 %; Neutrophils % 21.7 %; Nucleated Red Blood Cells % 0 %; Platelet Count 97 10^3/cmm (130-400); Red Blood Count 3.48 10^6/uL (4.1-5.3); Red Cell Distribution Width 16.4 % (12.1-15.1); White Blood Count 4.3 10^3/uL (4.0-10.0)
[2020-08-22 18:42] LABS: Neutrophils # 0.93 10^3/uL (1.8-7.7)
[2020-08-22 18:50] LABS: INR 0.89 (0.8-1.2)
[2020-08-22 18:51] LABS: Partial Thromboplastin Time 25.2 SECONDS (23.9-36.7)
--- NOTE | 2020-08-22 18:51 | PC.NURSE ---
requested for pt to try to give ua, pt states cannot at this time
[2020-08-22 18:53] LABS: D Dimer 0.62 ug/mIFEU (0-0.59)
[2020-08-22 19:01] VITALS: BP 115/75; PULSE 85; RESP 16; O2SAT 98
[2020-08-22] MEDS: ketorolac 30 mg/mL INJ 15 MG IVP (19:13)
[2020-08-22 19:23] LABS: Troponin(5th) Baseline 7 ng/L (0-10)
[2020-08-22 19:33] LABS: Alanine Aminotransferase 47 U/L (0-33); Alkaline Phosphatase 149 IU/L (35-105); Aspartate Amino Transferase 116 U/L (0-32); Blood Urea Nitrogen 6 mg/dL (6-20); Carbon Dioxide 26 mmol/L (22-29); Chloride 99 mmol/L (98-107); Globulin 5.4 g/dL (1.3-4.6); Glomerular Filtration Rate 107.6 mL/min (90-130); Glucose 94 mg/dL (65-115); NT Pro B Type Natriuretic Pept 51 pg/mL (0-125); Osmolality Calculated 285 mOsm/kg (285-295); Sodium 139 mmol/L (136-145); Total Bilirubin 0.3 mg/dL (0.15-1.2); Total Protein 9.4 g/dL (6.6-8.7)
[2020-08-22 19:44] VITALS: BP 114/79; PULSE 80; RESP 16; O2SAT 100
== END 2020-08-22 19:44 | disposition home or self-care (01) ==
PROVIDERS: Emergency Provider Nurse Practitioner Family; PCP Family Medicine
DX: S46.812A Strain of other muscles, fascia and tendons at shoulder and upper arm level, left arm, initial encounter (principal); X50.9XXA Other and unspecified overexertion or strenuous movements or postures, initial encounter; I12.9 Hypertensive chronic kidney disease with stage 1 through stage 4 chronic kidney disease, or unspecified chronic kidney disease; N18.2 Chronic kidney disease, stage 2 (mild); F17.210 Nicotine dependence, cigarettes, uncomplicated
CPT/HCPCS: 12345; 36415; 71045; 80053; 83880; 84484; 85025; 85378; 85610; 85730; 93005; 96374; 99282; 99284; J1885

== ENCOUNTER 2020-09-03 11:31 | Emergency (ER) | payer SELFPAY ==
[2020-09-03 11:58] VITALS: BP 142/91; PULSE 81; RESP 16; TEMP 36.8; O2SAT 100; BMI 21.6
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
--- NOTE | 2020-09-03 12:09 | XR_ITS ---
WS: [id number] Left knee, 3 views, 09/03/2020 Clinical Data: injury Comparison: Left knee, 03/15/2014. Findings: No fractures or dislocations are seen. The joint spaces are normal. The patella is intact. The soft t issues are unremarkable. There is an osteochondroma of the proximal posterior left fibula. XR/XR knee LT 3V* [id number] Impression: Negative left knee.
[2020-09-03] MEDS: ketorolac 60 mg/2 mL INJ IM (12:23)
[2020-09-03 13:09] VITALS: RESP 18
[2020-09-03] MEDS: morphine 4 mg/mL SDV 1 mL IM (13:09)
--- NOTE | 2020-09-03 13:16 | PC.NURSE ---
Pt noted to be sitting in VF on her phone laughing and having no c/o.
[2020-09-03 13:29] VITALS: BP 138/88; PULSE 82; RESP 18; TEMP 36.8; O2SAT 95
== END 2020-09-03 13:30 | disposition home or self-care (01) ==
PROVIDERS: Emergency Provider Physician Assistant; PCP Family Medicine
DX: S80.02XA Contusion of left knee, initial encounter (principal); I12.9 Hypertensive chronic kidney disease with stage 1 through stage 4 chronic kidney disease, or unspecified chronic kidney disease; N18.2 Chronic kidney disease, stage 2 (mild); F17.210 Nicotine dependence, cigarettes, uncomplicated; V19.3XXA Pedal cyclist (driver) (passenger) injured in unspecified nontraffic accident, initial encounter
CPT/HCPCS: 12345; 73562; 96372; 99282; 99283; J1885; J2270

== ENCOUNTER 2020-10-09 12:56 | Emergency (ER) | payer SELFPAY ==
[2020-10-09 13:00] VITALS: BP 169/101; PULSE 87; RESP 14; TEMP 36.2; O2SAT 100; BMI 21.7
--- NOTE | 2020-10-09 13:12 | XR_ITS ---
WS: [id number] Portable AP upright chest, 10/09/2020 Clinical Data: chest Comparison: Portable chest, 08/22/2020. Findings: No nodules, masses or effusions are seen. The heart is normal. The pulmonary vascularity is not increased. No pneumonia or pneumothorax is seen. There are monitor leads on the chest wall. XR/XR chest 1V portable [id number] Impression: Negative chest.
--- NOTE | 2020-10-09 13:13 | ECG_ITS ---
[facility] Test Date: 2020-10-09 Pat Name: Denisa Orourke Department: Room: Gender: Female Ophthalmic Medical Technician: : 1975 Requested By: Fer Nova Order Number: [id number] Reading MD: DM MEJIA Measurements Intervals [place] Rate: 76 P: 58 IN: 187 QRS: 37 QRSD: 92 T: 54 QT: 411 QTc: 464 Interpretive Statements SINUS RHYTHM INCOMPLETE RIGHT BUNDLE BRANCH BLOCK [90+ ms QRS DURATION, TERMINAL R IN V1/V2, 40+ ms S IN I/aVL/V4/V5/V6] Compared to ECG 08/22/2020 17:51:44 Incomplete right bundle-branch block now present Electronically Signed On 10-09-2020 19:23:45 DIANETICIST by DM MEJIA [email or web address] [email or web address] [id number]
[2020-10-09 13:39] LABS: Basophils # 0.1 10^3/uL (0.0-0.1); Basophils % 1.4 %; Eosinophils # 0.1 10^3/uL (0.0-0.8); Eosinophils % 2.1 %; Hematocrit 39.1 % (37.0-47.0); Hemoglobin 13.9 g/dL (11.5-15.3); Lymphocytes # 1.6 10^3/uL (0.8-4.8); Lymphocytes % 36.9 %; Mean Corpuscular HGB Conc 35.5 g/dL (30.0-36.0); Mean Corpuscular Hemoglobin 41.2 pg (28.0-34.0); Mean Platelet Volume 10.6 fL (7.4-10.4); Monocytes # 0.2 10^3/uL (0.2-0.9); Monocytes % 5.6 %; Neutrophils # 2.28 10^3/uL (1.8-7.7); Neutrophils % 53.8 %; Nucleated Red Blood Cells % 0 %; Platelet Count 128 10^3/cmm (130-400); Red Blood Count 3.37 10^6/uL (4.1-5.3); Red Cell Distribution Width 14.5 % (12.1-15.1); White Blood Count 4.3 10^3/uL (4.0-10.0)
[2020-10-09 13:57] VITALS: PULSE 75; RESP 23; O2SAT 100
[2020-10-09 14:01] LABS: Troponin(5th) Baseline 10 ng/L (0-10)
[2020-10-09 14:02] LABS: Alanine Aminotransferase 43 U/L (0-33); Albumin Level 4.5 g/dL (3.5-5.2); Alkaline Phosphatase 147 IU/L (35-105); Anion Gap 17.3 (5-19); Aspartate Amino Transferase 113 U/L (0-32); Blood Urea Nitrogen 8 mg/dL (6-20); Calcium 9.3 mg/dL (8.5-10.5); Carbon Dioxide 26 mmol/L (22-29); Chloride 96 mmol/L (98-107); Globulin 3.2 g/dL (1.3-4.6); Glomerular Filtration Rate 77.2 mL/min (90-130); Glucose 85 mg/dL (65-115); Osmolality Calculated 278 mOsm/kg (285-295); Potassium 4.3 mmol/L (3.5-5.1); Sodium 135 mmol/L (136-145); Total Bilirubin 1.2 mg/dL (0.15-1.2); Total Protein 7.7 g/dL (6.6-8.7)
--- NOTE | 2020-10-09 14:05 | ED_ITS ---
HPI - Chest Pain General: Chief Complaint: Chest Pain Stated Complaint: CP, NUMBNESS DOWN L ARM Time Seen by Provider: 10/09/20 13:12 History of Present Illness: HPI narrative: 45-year-old female who presents emergency room with complaint of chest pain that began 1130 today. Radiates down her left arm and into her back. She reports started while she was outside feeding her dog she took 325 of aspirin prior to arrival. Pain is slightly worsened by deep inspiration and by palpation. Patient is a history of PE and was previously on Xarelto its not currently listed on her medication list -she tells that she stopped it 1 month ago. MD complaint: chest pain and chest discomfort Pertinent past history: other (Prior PE no longer on anticoagulant) Onset (ago): hour(s) Timing of current episode: constant Prior episodes: Yes Onset: during rest Pain location: left chest Pain radiation: back Severity: moderate Quality: sharp Relieving factors: nothing Exacerbating factors: inspiration and palpation Context: history of DVT/PE Associated symptoms: Reports dyspnea; Deny abdominal pain, diaphoresis, fever(s), leg edema, nausea, palpitations, sense of impending doom, syncope or vomiting Treatment prior to arrival: oxygen Review of Systems Const: Denies: fever(s) or diaphoresis ENMT: Denies: throat pain, ear or mastoid pain, nasal discharge or nasal congestion Card: Denies: palpitations or syncope Resp: Reports: dyspnea GI: Denies: abdominal pain, nausea or vomiting : Denies: flank pain, difficulty voiding, dysuria, urinary frequency or urinary urgency Skin/Breast: Denies: rash or pruritus PFSH ED PFSH: Medical History Back pain CKD (chronic kidney disease) stage 2, GFR 60-89 ml/min Dyshidrotic hand dermatitis Fibromyalgia GERD (gastroesophageal reflux disease) Gram-negative bacteremia H/O HTN (hypertension) Hypothyroidism (acquired) Macrocytosis Migraine without aura, not intractable, without status migrainosus Nicotine abuse PSVT (paroxysmal supraventricular tachycardia) Pulmonary emboli Recurrent UTI Renal infarct Spinal stenosis, cervical region Transaminitis Vitamin B12 deficiency anemia Vitamin D deficiency Surgical History H/O colonoscopy 2018 - normal History of hysterectomy with bilateral oophorectomy History of radiofrequency ablation (RFA) procedure for cardiac arrhythmia Hx of appendectomy S/P carpal tunnel release S/P tubal ligation Family History Mother Atrial fibrillation Hypertension Social History Smoking and tobacco status: current every day smoker cigarettes Packs smoked per day: 0.5 Years cigarettes smoked: 30 Alcohol intake: current Alcohol intake frequency: 0-2 Drinks per Day Lives independently: Yes Household members: spouse and family Marital status: service: No Current occupational status: unemployed History of recent travel: No Current gender identity: Female Female Reproductive History: Date of last menstrual period: 07/31/10 Physical Exam Const: COMMON NORMALS: no acute distress GENERAL APPEARANCE: cooperative and comfortable ORIENTATION/CONSCIOUSNESS: Yes awake, Yes oriented to person, Yes oriented to place and Yes oriented to time HENMT: COMMON NORMALS: normocephalic, atraumatic and hearing grossly normal bilaterally HEAD & SCALP: normocephalic and atraumatic Neck/C-Spine: COMMON NORMALS: no JVD Resp: COMMON NORMALS: normal respiratory effort, No retractions, No use of accessory muscles and clear to auscultation bilaterally AUSCULTATION: clear to auscultation bilaterally Cardio: COMMON NORMALS: no JVD, regular rate, regular rhythm and No murmurs present (Cardio) RATE: regular rate RHYTHM: regular rhythm GI: COMMON NORMALS: Soft to palpation and No hepatosplenomegaly present AUSCULTATION: Yes normoactive bowel sounds PALPATION: Yes Soft to palpation, No Tenderness to palpation present (GI), No Guarding due to palpation present (GI) and Yes No hepatosplenomegaly present Extremity: COMMON NORMALS: normal to inspection, capillary refill normal, no clubbing, cyanosis or edema, no calf tenderness and no pedal edema Neuro: SENSORIUM/ORIENTATION: Yes oriented to person, Yes oriented to place and Yes oriented to time Skin: COMMON NORMALS: no rashes or lesions noted GENERAL SKIN EXAM: no rashes or lesions noted Course Vital Signs: Vital signs: Vital Signs Temperature 97.2 F L 10/09/20 13:00 Pulse Rate 80 10/09/20 16:36 Respiratory Rate 19 H 10/09/20 16:36 Blood Pressure 154/104 10/09/20 16:36 Pulse Oximetry 99 10/09/20 16:36 MDM - Chest Pain MDM Narrative: Medical decision making narrative: Patient has had some nausea and vomiting while here I think this is mostly GI her CTA labs and her cardiac enzymes are all negative EKG is unremarkable we will go ahead and discharge her home with Protonix and Zofran. Encouraged her to abstain from alcohol. Lab Data: Labs: Lab Results 10/09/20 10/09/20 10/09/20 Range/Units 13:20 13:20 13:20 WBC 4.3 (4.0-10.0) 10^3/ uL RBC 3.37 L (4.1-5.3) 10^6/u L Hgb 13.9 (11.5-15.3) g/dL Hct 39.1 (37.0-47.0) % MCV 116.0 H (81-99) fL MCH 41.2 H (28.0-34.0) pg MCHC 35.5 (30.0-36.0) g/dL RDW 14.5 (12.1-15.1) % Plt Count 128 L (130-400) 10^3/c mm MPV 10.6 H (7.4-10.4) fL Neut % (Auto) 53.8 % Lymph % (Auto) 36.9 % Yell % (Auto) 5.6 % Eos % (Auto) 2.1 % Baso % (Auto) 1.4 % Neut # (Auto) 2.28 (1.8-7.7) 10^3/u L Lymph # (Auto) 1.6 (0.8-4.8) 10^3/u L Yell # (Auto) 0.2 (0.2-0.9) 10^3/u L Eos # (Auto) 0.1 (0.0-0.8) 10^3/u L Baso # (Auto) 0.1 (0.0-0.1) 10^3/u L Nucleated RBC % (a uto) 0 % Nucleated RBCs # 0.0 /100WBC Sodium 135 L (136-145) mmol/L Potassium 4.3 (3.5-5.1) mmol/L Chloride 96 L (98-107) mmol/L Carbon Dioxide 26 (22-29) mmol/L Anion Gap 17.3 (5-19) BUN 8 (6-20) mg/dL Creatinine 0.8 (0.5-0.9) mg/dL GFR Calculation 77.2 L (90-130) mL/min Glucose 85 (65-115) mg/dL Calculated Osmolal ity 278 L (285-295) mOsm/k g Calcium 9.3 (8.5-10.5) mg/dL Total Bilirubin 1.2 (0.15-1.2) mg/dL AST 113 H (0-32) U/L ALT 43 H (0-33) U/L Alkaline Phosphata se 147 H (35-105) IU/L Troponin T Baselin e 10 (0-10) ng/L Troponin T 120 Min [place] (0-10) ng/L Delta Troponin T (0-10) ABS# Total Protein 7.7 (6.6-8.7) g/dL Albumin 4.5 (3.5-5.2) g/dL Globulin 3.2 (1.3-4.6) g/dL 10/09/20 Range/Units 15:15 WBC (4.0-10.0) 10^3/ uL RBC (4.1-5.3) 10^6/u L Hgb (11.5-15.3) g/dL Hct (37.0-47.0) % MCV (81-99) fL MCH (28.0-34.0) pg MCHC (30.0-36.0) g/dL RDW (12.1-15.1) % Plt Count (130-400) 10^3/c mm MPV (7.4-10.4) fL Neut % (Auto) % Lymph % (Auto) % Yell % (Auto) % Eos % (Auto) % Baso % (Auto) % Neut # (Auto) (1.8-7.7) 10^3/u L Lymph # (Auto) (0.8-4.8) 10^3/u L Yell # (Auto) (0.2-0.9) 10^3/u L Eos # (Auto) (0.0-0.8) 10^3/u L Baso # (Auto) (0.0-0.1) 10^3/u L Nucleated RBC % (a uto) % Nucleated RBCs # /100WBC Sodium (136-145) mmol/L Potassium (3.5-5.1) mmol/L Chloride (98-107) mmol/L Carbon Dioxide (22-29) mmol/L Anion Gap (5-19) BUN (6-20) mg/dL Creatinine (0.5-0.9) mg/dL GFR Calculation (90-130) mL/min Glucose (65-115) mg/dL Calculated Osmolal ity (285-295) mOsm/k g Calcium (8.5-10.5) mg/dL Total Bilirubin (0.15-1.2) mg/dL AST (0-32) U/L ALT (0-33) U/L Alkaline Phosphata se (35-105) IU/L Troponin T Baselin e (0-10) ng/L Troponin T 120 Min [place] 7.84 (0-10) ng/L Delta Troponin T -2.16 L (0-10) ABS# Total Protein (6.6-8.7) g/dL Albumin (3.5-5.2) g/dL Globulin (1.3-4.6) g/dL Discharge Plan Discharge Patient Disposition: Home Clinical Impression: Atypical chest pain, Dyspepsia Condition: Stable Prescriptions: New Protonix [address] for susp in packet 40 mg PO QAM 56 Days RF: 0 Zofran 4 mg tablet 4 mg PO Q6H PRN (Reason: nausea and vomiting) Qty: 20 RF: 0 Discontinued omeprazole magnesium [Prilosec OTC] 20 mg Tablet,Delayed Release (Dr/Ec) 20 mg PO DAILY RF: 0 No Action pseudoephedrine HCl 60 mg tablet 60 mg PO Q12H PRN (Reason: nasal congestion) Qty: 30 RF: 0 ondansetron HCl [Zofran] 4 mg tablet 4 mg PO Q8H RF: 0 cetirizine [Zyrtec] 10 mg Tablet 10 mg PO BID RF: 0 diphenhydramine HCl [Benadryl Allergy] 25 mg Tablet 25 mg PO PRN RF: 0 thiamine mononitrate (vit B1) [Vitamin B-1 (mononitrate)] 100 mg Tablet 100 mg PO DAILY Qty: 30 RF: 0 Vitamin B-12 2 tab PO DAILY RF: 0 multivitamin [Multiple Vitamins] Tablet 1 tab PO DAILY RF: 0 folic acid 400 mcg Tablet 800 mcg PO DAILY RF: 0 acetaminophen [Tylenol Extra Strength] 500 mg Tablet 1,000 mg PO PRN RF: 0 ceftriaxone 2 gram recon soln 2 gm IV Q24H Qty: 12 RF: 0 Discharge Orders: Discharge ED (Routine); Ordered 10/09/20 Ordered By: Fer Reynoso Referrals: Jeni Monsivais MD [Primary Care Provider] - Discharge Diet: Usual diet Discharge Activity: Increase activity as tolerated Patient Instructions: Opioid Safety Coding Level of Care Code ED Apprentice Carpenter for Apryl Fwd 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
[2020-10-09 14:11] VITALS: BP 146/91; PULSE 72; RESP 13; O2SAT 100
[2020-10-09] MEDS: ketorolac 30 mg/mL INJ IVP (14:11)
--- NOTE | 2020-10-09 14:48 | CT_ITS ---
WS: [id number] CTA OF THE CHEST WITH PULMONARY EMBOLISM PROTOCOL TECHNIQUE: High-resolution contrast enhanced CTA of the chest with coronal and sagittal reformatted i mages with pulmonary embolism protocol. MIP images are also reviewed. CLINICAL INFORMATION: chest pain dyspnea COMPARISON: CTA chest May 31, 2020 DLP: 446.[address] scans at [facility] use at least one of these dose optimization techniques: automat ed exposure control; mA and/or kV adjustment per patient size (includes targeted exams where dose is matched to clinical indication); or iterative reconstruction. FINDINGS: Proximal main pulmonary arteries are normal. A few small residual filling defects in the bilateral lo wer lobe segmental pulmonary arteries. Pulmonary embolus has improved since May 31, 2020. No maribell dence of new or progressed embolus. Both lungs are well aerated. No acute pulmonary infiltrates. No focal pneumonia or pleural fluid. No mediastinal or hilar lymphadenopathy. No axillary lymphadenopathy. Adrenal glands are normal. CT/CT angio chest PE protcl [id number] IMPRESSION: 1. A few tiny residual filling defects in bilateral lower lobe pulmonary arter ies likely sequelae from prior embolus May 2020. This is improved from pre vious. No evidence of new or progressed pulmonary embolus. 2. Both lungs are well aerated. No acute pulmonary infiltrates. 3. No focal pneumonia or pleural fluid. 4. No other significant findings. Notified Fer Reynoso DO at 10/09/2020 3:54 PM.
--- NOTE | 2020-10-09 15:13 | ECG_ITS ---
[facility] Test Date: 2020-10-09 Pat Name: Denisa Orourke Department: Room: Gender: Female Data Architect Manager: : 1975 Requested By: Fer Nova Order Number: [id number] Reading MD: DM MEJIA Measurements Intervals [place] Rate: 75 P: 63 MS: 170 QRS: 33 QRSD: 102 T: 60 QT: 428 QTc: 480 Interpretive Statements SINUS RHYTHM INCOMPLETE RIGHT BUNDLE BRANCH BLOCK [90+ ms QRS DURATION, TERMINAL R IN V1/V2, 40+ ms S IN I/aVL/V4/V5/V6] Compared to ECG 10/09/2020 13:21:56 No significant changes Electronically Signed On 10-09-2020 19:25:16 ORDER BOOKER by DM MEJIA [email or web address] [email or web address] centralDiObexselect medical [id number]
[2020-10-09] MEDS: iohexol 350 mg/mL 100 mL Btl IV (15:22)
[2020-10-09] MEDS: nitroglycerin 1 gm/inch oint Pkt 1 INCH TOPICAL (15:50)
[2020-10-09 16:08] LABS: Troponin 5 2HR 7.84 ng/L (0-10)
[2020-10-09 16:10] LABS: Troponin 5 2HR Delta -2.16 ABS# (0-10)
[2020-10-09 16:21] VITALS: BP 135/93; PULSE 81; RESP 18; O2SAT 98
[2020-10-09] MEDS: promethazine 25 mg/mL SDV 1 mL IM (16:31)
[2020-10-09 16:36] VITALS: BP 154/104; PULSE 80; RESP 19; O2SAT 99
== END 2020-10-09 16:37 | disposition home or self-care (01) ==
PROVIDERS: Emergency Provider Family Medicine; PCP Family Medicine
DX: R07.89 Other chest pain (principal); R10.13 Epigastric pain; I12.9 Hypertensive chronic kidney disease with stage 1 through stage 4 chronic kidney disease, or unspecified chronic kidney disease; N18.2 Chronic kidney disease, stage 2 (mild); F17.210 Nicotine dependence, cigarettes, uncomplicated
CPT/HCPCS: 36415; 71045; 71275; 80053; 84484; 85025; 93005; 96372; 96374; 99284; J1885; J2550; Q9967

== ENCOUNTER 2020-10-14 14:42 | Emergency (ER) | payer SELFPAY ==
[2020-10-14 14:44] VITALS: BP 148/92; PULSE 93; RESP 16; TEMP 36.6; O2SAT 100; BMI 24.7
[2020-10-14 15:10] LABS: Basophils # 0.1 10^3/uL (0.0-0.1); Basophils % 1.6 %; Eosinophils # 0.1 10^3/uL (0.0-0.8); Eosinophils % 2.4 %; Hemoglobin 12.3 g/dL (11.5-15.3); Lymphocytes % 47.8 %; Mean Corpuscular HGB Conc 35.1 g/dL (30.0-36.0); Mean Corpuscular Hemoglobin 41.7 pg (28.0-34.0); Mean Corpuscular Volume 118.6 fL (81-99); Mean Platelet Volume 10.9 fL (7.4-10.4); Monocytes # 0.3 10^3/uL (0.2-0.9); Monocytes % 7.3 %; Neutrophils # 1.73 10^3/uL (1.8-7.7); Neutrophils % 40.7 %; Nucleated Red Blood Cells % 0 %; Platelet Count 165 10^3/cmm (130-400); Red Blood Count 2.95 10^6/uL (4.1-5.3); Red Cell Distribution Width 14.4 % (12.1-15.1); White Blood Count 4.3 10^3/uL (4.0-10.0)
[2020-10-14 15:28] LABS: Alanine Aminotransferase 36 U/L (0-33); Albumin Level 4.1 g/dL (3.5-5.2); Alkaline Phosphatase 120 IU/L (35-105); Blood Urea Nitrogen 5 mg/dL (6-20); Calcium 9.2 mg/dL (8.5-10.5); Carbon Dioxide 26 mmol/L (22-29); Chloride 99 mmol/L (98-107); Globulin 3.5 g/dL (1.3-4.6); Glomerular Filtration Rate 90.1 mL/min (90-130); Glucose 80 mg/dL (65-115); Osmolality Calculated 280 mOsm/kg (285-295); Sodium 137 mmol/L (136-145); Total Bilirubin 0.6 mg/dL (0.15-1.2); Total Protein 7.6 g/dL (6.6-8.7)
[2020-10-14 15:29] LABS: Anion Gap 16.3 (5-19); Aspartate Amino Transferase 101 U/L (0-32); Potassium 4.3 mmol/L (3.5-5.1)
--- NOTE | 2020-10-14 16:03 | ED_ITS ---
HPI - General Adult General: Chief complaint: Upper Respiratory Infection Stated complaint: THROAT TIGHTNESS Time Seen by Provider: 10/14/20 14:44 Source: patient Mode of arrival: EMS Limitations: no limitations History of Present Illness: HPI narrative: Patient is a 45-year-old female with multiple ED visits for various concerns. She presents today with a sensation of throat tightness that came on suddenly this morning. She has multiple medication allergies but has not taken anything new, either medication or food metcalf. She has not been exposed to anything new. She claims she has difficulty breathing but her oxygen saturations have been normal on room air at 100%. She was given a dose of epinephrine in the ambulance but with no improvement. Associated symptoms: Deny dyspnea, headache(s), nausea, rash, palpitations or vomiting Review of Systems General: Reports: 10 or more systems reviewed and unremarkable except in HPI and below Const: Denies: fever(s), chills or body aches Eyes: Denies: change in vision or blurry vision ENMT: Reports: throat pain; Denies: enlarged tonsils, odynophagia, hoarseness, mouth pain or swelling of lips/tongue Card: Denies: palpitations, irregular heart rhythm, edema or swelling of feet/ankles Resp: Denies: dyspnea, productive cough or non-productive cough GI: Denies: abdominal pain, nausea or vomiting : Denies: flank pain, difficulty voiding, dysuria, urinary frequency, urinary urgency or urinary hesitancy Musc: Denies: neck pain, back pain or extremity swelling Skin/Breast: Denies: rash, pruritus or erythema Neuro: Denies: headache(s), numbness in extremities or weakness in extremities Endo: Denies: polyuria, polydipsia or tired all the time [facility] ED PFSH: Medical History Back pain CKD (chronic kidney disease) stage 2, GFR 60-89 ml/min Dyshidrotic hand dermatitis Fibromyalgia GERD (gastroesophageal reflux disease) Gram-negative bacteremia H/O HTN (hypertension) Hypothyroidism (acquired) Macrocytosis Migraine without aura, not intractable, without status migrainosus Nicotine abuse PSVT (paroxysmal supraventricular tachycardia) Pulmonary emboli Recurrent UTI Renal infarct Spinal stenosis, cervical region Transaminitis Vitamin B12 deficiency anemia Vitamin D deficiency Surgical History H/O colonoscopy 2018 - normal History of hysterectomy with bilateral oophorectomy History of radiofrequency ablation (RFA) procedure for cardiac arrhythmia Hx of appendectomy S/P carpal tunnel release S/P tubal ligation Family History Mother Atrial fibrillation Hypertension Social History Smoking and tobacco status: current every day smoker cigarettes Packs smoked per day: 0.5 Years cigarettes smoked: 30 Alcohol intake: current Alcohol intake frequency: 0-2 Drinks per Day Lives independently: Yes Household members: spouse and family Marital status: service: No Current occupational status: unemployed History of recent travel: No Current gender identity: Female Female Reproductive History: Date of last menstrual period: 07/31/10 Physical Exam Const: COMMON NORMALS: no acute distress, average body habitus, patient oriented x3, no limitations, healthy appearing, alert and well nourished HENMT: COMMON NORMALS: normocephalic, atraumatic and moist oral mucous membranes HEAD & SCALP: normocephalic and atraumatic THROAT: posterior oropharynx normal, tonsils normal and uvula midline Eye: COMMON NORMALS: Equal, round and reactive pupils present, EOMs intact bilaterally, conjunctivae normal and no scleral icterus CONJUNCTIVA: Yes conjunctivae normal PUPIL: Yes Equal, round and reactive pupils present Neck/C-Spine: COMMON NORMALS: full ROM, supple, no meningeal signs, no JVD and No carotid bruits Resp: COMMON NORMALS: normal respiratory effort, No retractions, No use of accessory muscles, clear to auscultation bilaterally and percussion normal AUSCULTATION: clear to auscultation bilaterally PERCUSSION: percussion normal Cardio: COMMON NORMALS: no JVD, regular rate, regular rhythm, S1 normal heart sound present, S2 normal heart sound present, No gallops present (Cardio), No clicks present (Cardio), No murmurs present (Cardio), No rub (Cardio) and Peripheral pulses 2+ throughout RATE: regular rate RHYTHM: regular rhythm HEART SOUNDS: S1 normal heart sound present and S2 normal heart sound present PERIPHERAL PULSES: Peripheral pulses 2+ throughout GI: COMMON NORMALS: Normal to inspection, nondistended, normoactive bowel sounds present, Soft to palpation, non-tender, No hepatosplenomegaly present, no masses and no bruits PALPATION: Yes Soft to palpation and Yes No hepatosplenomegaly present Neuro: COMMON NORMALS: patient oriented x3 SENSORIUM/ORIENTATION: Yes alert MENINGEAL SIGNS: Yes no meningeal signs Skin: COMMON NORMALS: no rashes or lesions noted, no wounds, turgor normal, no jaundice, no petechiae and no mottling GENERAL SKIN EXAM: no rashes or lesions noted and turgor normal Course Reevaluation(s): Reevaluation #1: Discussed her lab and imaging findings with her. Explained that there was nothing acute found. She states that she has been coughing a lot and advised that she likely has viral pharyngitis. We will discharge her home with some cough medicine. She voiced understanding and is in agreement with the plan. Time: 17:42 Vital Signs: Vital signs: Vital Signs Temperature 97.9 F 10/14/20 14:44 Pulse Rate 79 10/14/20 18:34 Respiratory Rate 16 10/14/20 18:34 Blood Pressure 142/91 10/14/20 18:34 Pulse Oximetry 98 10/14/20 18:34 MDM - General Adult MDM Narrative: Medical decision making narrative: Patient with clinical features consistent with viral laryngitis. She had a sensation of her throat swelling but on evaluation nothing acute was found. She is discharged home with cough medication. Medical Records: Attestation: I reviewed the patient's medical records. Lab Data: Attestation: I reviewed the patient's lab results. Labs: Lab Results 10/14/20 10/14/20 10/14/20 Range/Units 14:35 14:35 16:45 WBC 4.3 (4.0-10.0) 10^3/ uL RBC 2.95 L (4.1-5.3) 10^6/u L Hgb 12.3 (11.5-15.3) g/dL Hct 35.0 L (37.0-47.0) % MCV 118.6 H (81-99) fL MCH 41.7 H (28.0-34.0) pg MCHC 35.1 (30.0-36.0) g/dL RDW 14.4 (12.1-15.1) % Plt Count 165 (130-400) 10^3/c mm MPV 10.9 H (7.4-10.4) fL Neut % (Auto) 40.7 % Lymph % (Auto) 47.8 % Custer % (Auto) 7.3 % Eos % (Auto) 2.4 % Baso % (Auto) 1.6 % Neut # (Auto) 1.73 L (1.8-7.7) 10^3/u L Lymph # (Auto) 2.0 (0.8-4.8) 10^3/u L Custer # (Auto) 0.3 (0.2-0.9) 10^3/u L Eos # (Auto) 0.1 (0.0-0.8) 10^3/u L Baso # (Auto) 0.1 (0.0-0.1) 10^3/u L Nucleated RBC % (a uto) 0 % Nucleated RBCs # 0.0 /100WBC Sodium 137 (136-145) mmol/L Potassium 4.3 (3.5-5.1) mmol/L Chloride 99 (98-107) mmol/L Carbon Dioxide 26 (22-29) mmol/L Anion Gap 16.3 (5-19) BUN 5 L (6-20) mg/dL Creatinine 0.7 (0.5-0.9) mg/dL GFR Calculation 90.1 (90-130) mL/min Glucose 80 (65-115) mg/dL Calculated Osmolal ity 280 L (285-295) mOsm/k g Calcium 9.2 (8.5-10.5) mg/dL Total Bilirubin 0.6 (0.15-1.2) mg/dL AST 101 H (0-32) U/L ALT 36 H (0-33) U/L Alkaline Phosphata se 120 H (35-105) IU/L Total Protein 7.6 (6.6-8.7) g/dL Albumin 4.1 (3.5-5.2) g/dL Globulin 3.5 (1.3-4.6) g/dL HCG, Qual Negative (Negative) Urine Color (Yellow) Urine Appearance (CLEAR) Urine pH (5-7) Ur Specific Gravit y (1.005-1.030) Urine Protein (Negative) Urine Glucose (UA) (Normal) Urine Ketones (Negative) Urine Blood (Negative) Urine Nitrate (Negative) Urine Bilirubin (Negative) Prot Sulfosalicyli c Acd (Negative) Urine Urobilinogen (Negative) mg/dL Ur Leukocyte Rachel ase (Negative) Urine RBC (0-2) /hpf Urine WBC (0-5) /hpf Ur Squamous Epith Cells (0-5) /hpf Amorphous Sediment /hpf Urine Bacteria (NONE) /hpf Urine Opiates Scre en (Negative) ng/mL Ur Barbiturates Sc reen (Negative) ng/mL Ur Phencyclidine S crn (Negative) ng/mL Ur Amphetamines Sc reen (Negative) ng/mL U Benzodiazepines Scrn (Negative) ng/mL Urine Cocaine Scre en (Negative) ng/mL U Marijuana (THC) Screen (Negative) ng/mL Group A Strep Rapi d (Negative) 10/14/20 10/14/20 10/14/20 Range/Units 16:45 16:45 16:55 WBC (4.0-10.0) 10^3/ uL RBC (4.1-5.3) 10^6/u L Hgb (11.5-15.3) g/dL Hct (37.0-47.0) % MCV (81-99) fL MCH (28.0-34.0) pg MCHC (30.0-36.0) g/dL RDW (12.1-15.1) % Plt Count (130-400) 10^3/c mm MPV (7.4-10.4) fL Neut % (Auto) % Lymph % (Auto) % Custer % (Auto) % Eos % (Auto) % Baso % (Auto) % Neut # (Auto) (1.8-7.7) 10^3/u L Lymph # (Auto) (0.8-4.8) 10^3/u L Custer # (Auto) (0.2-0.9) 10^3/u L Eos # (Auto) (0.0-0.8) 10^3/u L Baso # (Auto) (0.0-0.1) 10^3/u L Nucleated RBC % (a uto) % Nucleated RBCs # /100WBC Sodium (136-145) mmol/L Potassium (3.5-5.1) mmol/L Chloride (98-107) mmol/L Carbon Dioxide (22-29) mmol/L Anion Gap (5-19) BUN (6-20) mg/dL Creatinine (0.5-0.9) mg/dL GFR Calculation (90-130) mL/min Glucose (65-115) mg/dL Calculated Osmolal ity (285-295) mOsm/k g Calcium (8.5-10.5) mg/dL Total Bilirubin (0.15-1.2) mg/dL AST (0-32) U/L ALT (0-33) U/L Alkaline Phosphata se (35-105) IU/L Total Protein (6.6-8.7) g/dL Albumin (3.5-5.2) g/dL Globulin (1.3-4.6) g/dL HCG, Qual (Negative) Urine Color Yellow (Yellow) Urine Appearance Hazy A (CLEAR) Urine pH 8 H (5-7) Ur Specific Gravit y 1.010 (1.005-1.030) Urine Protein Neg (Negative) Urine Glucose (UA) Norm (Normal) Urine Ketones 1+ H (Negative) Urine Blood Neg (Negative) Urine Nitrate Negative (Negative) Urine Bilirubin Neg (Negative) Prot Sulfosalicyli c Acd Negative (Negative) Urine Urobilinogen 4 H (Negative) mg/dL Ur Leukocyte Rachel ase Negative (Negative) Urine RBC 0-4 H (0-2) /hpf Urine WBC None (0-5) /hpf Ur Squamous Epith Cells 15-25 H (0-5) /hpf Amorphous Sediment 1+ /hpf Urine Bacteria 2+ H (NONE) /hpf Urine Opiates Scre en Negative (Negative) ng/mL Ur Barbiturates Sc reen Negative (Negative) ng/mL Ur Phencyclidine S crn Negative (Negative) ng/mL Ur Amphetamines Sc reen Negative (Negative) ng/mL U Benzodiazepines Scrn Positive H (Negative) ng/mL Urine Cocaine Scre en Negative (Negative) ng/mL U Marijuana (THC) Screen Negative (Negative) ng/mL Group A Strep Rapi d Negative (Negative) Discharge Plan Discharge Patient Disposition: Home Clinical Impression: Acute viral pharyngitis Condition: Stable Prescriptions: New Tessalon Perles 100 mg capsule 100 mg PO TID PRN (Reason: cough) Qty: 21 RF: 0 Continued pseudoephedrine HCl 60 mg tablet 60 mg PO Q12H PRN (Reason: nasal congestion) Qty: 30 RF: 0 ondansetron HCl [Zofran] 4 mg tablet 4 mg PO Q6H PRN (Reason: nausea and vomiting) Qty: 20 RF: 0 Xarelto 15 mg tablet 15 mg PO BID RF: 0 cetirizine [Zyrtec] 10 mg Tablet 10 mg PO BID RF: 0 thiamine mononitrate (vit B1) [Vitamin B-1 (mononitrate)] 100 mg Tablet 100 mg PO DAILY Qty: 30 RF: 0 Vitamin B-12 2 tab PO DAILY RF: 0 multivitamin [Multiple Vitamins] Tablet 1 tab PO DAILY RF: 0 folic acid 400 mcg Tablet 800 mcg PO DAILY RF: 0 acetaminophen [Tylenol Extra Strength] 500 mg Tablet 1,000 mg PO PRN RF: 0 Discharge Orders: Discharge ED (Routine); Ordered 10/14/20 Ordered By: Shannon Barber Referrals: Jeni Monsivais MD [Primary Care Provider] - 1-3 days Discharge Diet: Usual diet Discharge Activity: Increase activity as tolerated Patient Instructions: Pharyngitis (ED) Activity Restrictions/Additional Instructions: Return for any new or worsening symptoms. Follow-up with your primary care provider within 3 days. Take the medicine as needed. Coding Level of Care Code ED Rn Medical Inpatient Services for [facility] Fwd 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
[2020-10-14] MEDS: ketorolac 30 mg/mL INJ IVP (16:17)
[2020-10-14 16:52] VITALS: BP 125/81; PULSE 90; RESP 18; O2SAT 100
[2020-10-14 16:58] LABS: HCG Qualitative Urine. Negative (Negative)
[2020-10-14 17:00] VITALS: BP 132/87; PULSE 85; RESP 17; O2SAT 99
[2020-10-14 17:04] LABS: Amphetamines Screen Urine Negative (Negative); Barbiturates Screen Urine Negative (Negative); Benzodiazepines Screen Urine Positive (Negative); Cocaine Screen Urine Negative (Negative); Opiate Screen Urine Negative (Negative); PCP Screen Urine Negative (Negative); THC Screen Urine Negative (Negative)
[2020-10-14 17:19] LABS: Sulfosalicylic Acid Urine Negative (Negative); Urine Appearance Hazy (CLEAR); Urine Color Yellow (Yellow); pH Urine 8 (5-7)
[2020-10-14 17:20] LABS: Add Urine Microscopic? YES; Bilirubin Urine Neg (Negative); Blood Urine Neg (Negative); Glucose Urine UA Norm (Normal); Ketones Urine 1+ (Negative); Leukocyte Esterase Urine Negative (Negative); Nitrate Urine Negative (Negative); Protein Urine Neg (Negative); Urobilinogen Urine 4 mg/dL (Negative)
[2020-10-14 17:24] LABS: Rapid Strep A Test Negative (Negative)
[2020-10-14 17:30] LABS: Add Urine Culture? No; Amorphous Sediment Urine 1+ /hpf; Bacteria Urine 2+ /hpf; RBC Urine 0-4 /hpf (0-2); Squamous Epithelial Cell Urine 15-25 /hpf (0-5)
[2020-10-14 17:32] VITALS: BP 131/81; PULSE 83; RESP 16; O2SAT 97
[2020-10-14 17:49] VITALS: RESP 16; O2SAT 99
[2020-10-14] MEDS: fentaNYL 50 mcg/mL INJ 2mL IVP (17:49)
[2020-10-14 18:34] VITALS: BP 142/91; PULSE 79; RESP 16; O2SAT 98
== END 2020-10-14 18:27 | disposition home or self-care (01) ==
PROVIDERS: Emergency Provider Family Medicine; PCP Family Medicine
DX: J02.8 Acute pharyngitis due to other specified organisms (principal); I12.9 Hypertensive chronic kidney disease with stage 1 through stage 4 chronic kidney disease, or unspecified chronic kidney disease; N18.2 Chronic kidney disease, stage 2 (mild); F17.210 Nicotine dependence, cigarettes, uncomplicated
CPT/HCPCS: 80053; 80306; 81001; 81025; 85025; 87081; 87880; 96374; 96375; 99284; J1885; J2930; J3010

== ENCOUNTER 2020-10-25 16:09 | Emergency (ER) | payer SELFPAY ==
[2020-10-25 16:19] VITALS: BP 133/91; PULSE 99; RESP 18; TEMP 36.9; O2SAT 96; BMI 21.2
--- NOTE | 2020-10-25 16:33 | CTR_ITS ---
PROCEDURE INFORMATION: Exam: CT Head Without Contrast Exam date and time: 10/25/2020 5:17 PM Age: 45 years old Clinical indication: Injury or trauma; Fall; Blunt trauma (contusions or hematomas); Without loss of consciousness; Patient HX: PT fell last night hitting R anabaptist on nightstand denies loc TECHNIQUE: Imaging protocol: Computed tomography of the head without contrast. Radiation optimization: All CT scans at this facility use at least one of these dose optimization techniques: automated exposure control; mA and/or kV adjustment per patient size (includes targeted exams where dose is matched to clinical indication); or iterative reconstruction. COMPARISON: CT head wo con* [id number] 10/16/2017 5:39 PM RADIATION DOSE METRICS: Total DLP (mGy-cm): 853.59 FINDINGS: Brain: No evidence of acute infarct. No mass or mass effect. No intra axial hemorrhage. No extra axial fluid collection or hemorrhage. Mild cerebellar atrophy, similar to the prior exam. Cerebral ventricles: Symmetric and without enlargement. Bones/joints: No acute fracture. Paranasal sinuses: Visualized sinuses are well aerated. Mastoid air cells: Visualized mastoid air cells are well aerated. Soft tissues: No concerning abnormalities. CT/CT head wo con* [id number] IMPRESSION: 1. No acute intracranial abnormality. 2. Nonspecific cerebellar atrophy. Radiation Dose CTDIVOL = (mGy): DLP = 853.59 (mGy-cm)
[2020-10-25 17:29] LABS: Basophils # 0.1 10^3/uL (0.0-0.1); Basophils % 2.8 %; Eosinophils # 0.1 10^3/uL (0.0-0.8); Eosinophils % 3.2 %; Hematocrit 37.4 % (37.0-47.0); Hemoglobin 13.4 g/dL (11.5-15.3); Lymphocytes # 2.4 10^3/uL (0.8-4.8); Lymphocytes % 56.1 %; Mean Corpuscular HGB Conc 35.8 g/dL (30.0-36.0); Mean Corpuscular Hemoglobin 41.1 pg (28.0-34.0); Mean Corpuscular Volume 114.7 fL (81-99); Mean Platelet Volume 9.7 fL (7.4-10.4); Monocytes # 0.3 10^3/uL (0.2-0.9); Monocytes % 7.4 %; Nucleated Red Blood Cells % 0 %; Platelet Count 152 10^3/cmm (130-400); Red Blood Count 3.26 10^6/uL (4.1-5.3); Red Cell Distribution Width 13.2 % (12.1-15.1); White Blood Count 4.3 10^3/uL (4.0-10.0)
[2020-10-25 17:42] LABS: Alanine Aminotransferase 27 U/L (0-33); Albumin Level 4.4 g/dL (3.5-5.2); Alkaline Phosphatase 121 IU/L (35-105); Anion Gap 18.3 (5-19); Aspartate Amino Transferase 50 U/L (0-32); Blood Urea Nitrogen 4 mg/dL (6-20); Calcium 9.2 mg/dL (8.5-10.5); Carbon Dioxide 25 mmol/L (22-29); Chloride 102 mmol/L (98-107); Globulin 3.6 g/dL (1.3-4.6); Glomerular Filtration Rate 132.8 mL/min (90-130); Glucose 90 mg/dL (65-115); Osmolality Calculated 290 mOsm/kg (285-295); Potassium 3.3 mmol/L (3.5-5.1); Sodium 142 mmol/L (136-145); Total Bilirubin 0.4 mg/dL (0.15-1.2)
[2020-10-25 17:43] LABS: Amphetamines Screen Urine Negative (Negative); Barbiturates Screen Urine Negative (Negative); Benzodiazepines Screen Urine Positive (Negative); Cocaine Screen Urine Negative (Negative); Opiate Screen Urine Negative (Negative); PCP Screen Urine Negative (Negative); THC Screen Urine Negative (Negative)
[2020-10-25 18:09] LABS: Acetaminophen < 5.0 ug/mL (10-30); Salicylate < 0.3 mg/dL (3-10)
[2020-10-25 18:12] LABS: Alcohol Level 350 mg/dL (0-10)
[2020-10-25 18:21] VITALS: BP 120/85; PULSE 88; RESP 16; O2SAT 97
[2020-10-25 19:10] LABS: Troponin(5th) Baseline 10 ng/L (0-10)
--- NOTE | 2020-10-25 20:26 | ECG_ITS ---
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 Measurements Intervals Steger Rate: 83 P: 62 KS: 176 QRS: 6 QRSD: 95 T: 59 QT: 415 QTc: 490 Interpretive Statements SINUS RHYTHM POSSIBLE LEFT ATRIAL ENLARGEMENT [-0.1mV P WAVE IN V1/V2] LOW QRS VOLTAGE IN PRECORDIAL LEADS [QRS DEFLECTION < 1.0 mV IN CHEST LEADS] POSSIBLE RIGHT VENTRICULAR CONDUCTION DELAY [RSR (QR) IN V1/V2] MODERATE T-WAVE ABNORMALITY, CONSIDER ANTERIOR ISCHEMIA [-0.1+ mV T WAVE IN V3/V4] Compared to ECG 10/09/2020 15:30:13 Low QRS voltage now present T-wave abnormality now present Possible ischemia now present Incomplete right bundle-branch block no longer present Electronically Signed On 10-26-2020 19:26:01 CDT by Troy Garcia M.D. [email or web address]
[2020-10-25] MEDS: LORazepam 1 mg Tablet PO (20:39)
[2020-10-25 21:07] LABS: Troponin 5 2HR 9.58 ng/L (0-10)
[2020-10-25 21:22] LABS: Troponin 5 2HR Delta -0.42 ABS# (0-10)
[2020-10-25 22:02] LABS: Alcohol Level 211 mg/dL (0-10)
--- NOTE | 2020-10-25 22:36 | W.ED.PSYCH ---
HPI - Psych General: Chief Complaint: Psychiatric Symptoms Stated Complaint: psych eval Time Seen by Provider: 10/25/20 17:04 Source: patient Mode of arrival: ambulatory Limitations: no limitations History of Present Illness: HPI Narrative: Patient is a 45-year-old female who presents to the emergency department with complaints of suicidal ideation. She told me that she is under a lot of social stressors at home and she medicates with alcohol. She says that she has never had any thoughts of suicide before today. She has never been admitted to a psychiatric facility. She drinks whiskey and vodka every day. Her last drink was about 4 hours prior to arrival. She endorses a fall last night and she hit her head on the dresser when she fell. She would like to be admitted for these. She also complains of left shoulder pain. MD complaint: suicidal ideation and feels depressed Onset (ago): hour(s) Duration: constant History of same: No Relieving factors: none Exacerbating factors: alcohol Context: recent alcohol abuse and significant life stressor Associated psychiatric symptoms: depression and suicidal ideation Associated symptoms: Reports suicidal ideation Treatments prior to arrival: none If self harm: admits thoughts of self harm Review of Systems General: Reports: 10 or more systems reviewed and unremarkable except in HPI and below Psych: Reports: suicidal ideation [facility] ED PFSH: Medical History Back pain CKD (chronic kidney disease) stage 2, GFR 60-89 ml/min Dyshidrotic hand dermatitis Fibromyalgia GERD (gastroesophageal reflux disease) Gram-negative bacteremia H/O HTN (hypertension) Hypothyroidism (acquired) Macrocytosis Migraine without aura, not intractable, without status migrainosus Nicotine abuse PSVT (paroxysmal supraventricular tachycardia) Pulmonary emboli Recurrent UTI Renal infarct Spinal stenosis, cervical region Transaminitis Vitamin B12 deficiency anemia Vitamin D deficiency Surgical History H/O colonoscopy 2018 - normal History of hysterectomy with bilateral oophorectomy History of radiofrequency ablation (RFA) procedure for cardiac arrhythmia Hx of appendectomy S/P carpal tunnel release S/P tubal ligation Family History Mother Atrial fibrillation Hypertension Social History Smoking and tobacco status: current every day smoker cigarettes Packs smoked per day: 0.5 Years cigarettes smoked: 30 Alcohol intake: current Alcohol intake frequency: 0-2 Drinks per Day Lives independently: Yes Household members: spouse and family Marital status: service: No Current occupational status: unemployed History of recent travel: No Current gender identity: Female Female Reproductive History: Date of last menstrual period: 07/31/10 Physical Exam Const: COMMON NORMALS: no acute distress, average body habitus, patient oriented x3, no limitations, healthy appearing, alert and well nourished HENMT: COMMON NORMALS: normocephalic, atraumatic and moist oral mucous membranes HEAD & SCALP: normocephalic and atraumatic Neck/C-Spine: COMMON NORMALS: no meningeal signs and no JVD Resp: COMMON NORMALS: normal respiratory effort, No retractions, No use of accessory muscles, clear to auscultation bilaterally and percussion normal AUSCULTATION: clear to auscultation bilaterally PERCUSSION: percussion normal Cardio: COMMON NORMALS: no JVD, regular rate, regular rhythm, S1 normal heart sound present, S2 normal heart sound present, No gallops present (Cardio), No clicks present (Cardio), No murmurs present (Cardio), No rub (Cardio) and Peripheral pulses 2+ throughout RATE: regular rate RHYTHM: regular rhythm HEART SOUNDS: S1 normal heart sound present and S2 normal heart sound present PERIPHERAL PULSES: Peripheral pulses 2+ throughout GI: COMMON NORMALS: Normal to inspection, nondistended, normoactive bowel sounds present, Soft to palpation, non-tender, No hepatosplenomegaly present, no masses and no bruits PALPATION: Yes Soft to palpation and Yes No hepatosplenomegaly present Extremity: COMMON NORMALS: normal to inspection, full ROM, capillary refill normal, no calf tenderness and no pedal edema LEFT UPPER EXTREMITY: Yes shoulder joint Left shoulder joint: Yes inspection (normal), Yes palpation (TTP posteriorly especially in the infraspinatus and supraspinatus), Yes neurovascular exam (intact) and Yes special tests Left shoulder special tests: Empty can test: Positive, Drop arm test: Positive, Crossover impingement test: Negative, Neer impingement test: Positive and Ba-Rakesh impingement test: Positive Neuro: COMMON NORMALS: patient oriented x3 SENSORIUM/ORIENTATION: Yes alert MENINGEAL SIGNS: Yes no meningeal signs Psych: COMMON NORMALS: speech normal ATTITUDE: Yes Withdrawn affect present ACTIVITY/MOTOR BEHAVIOR: Yes psychomotor slowing SPEECH: Yes normal speech MOOD & AFFECT: Yes depressed mood Skin: COMMON NORMALS: no rashes or lesions noted, no wounds, turgor normal, no jaundice, no petechiae and no mottling GENERAL SKIN EXAM: no rashes or lesions noted and turgor normal Procedures Joint Aspiration/Injection Joint Asp./Inject. 1: Time Out Performed: Yes Side of body: left Joint Aspirated: shoulder Ultrasound Guidance: No Skin Prep: Povidone-Iodine1% Local Anesthetic: lidocaine 1% Amount of anesthesia used (mL): 4 Needle Size Used: 22G Total fluid obtained (mL): 0 Medication Injected, if any: Triamcinolone Acetate Amount of medication injected (mL): 1 Patient Tolerated Procedure: well Complications: none MDM - Psych MDM Narrative: Medical decision making narrative: 45-year-old female patient with a history of alcohol abuse who presents to the emergency department with alcohol intoxication. While she was intoxicated she had said that she was suicidal and wanted to be admitted to the neuropsychiatric unit. She was kept down here for her alcohol levels to improve when her alcohol levels are improved and she was sober she stated that she was not suicidal and wanted to be discharged home. At this time she is alert and oriented and able to make sound and informed medical decisions. I therefore feel it is safe for her to be discharged home. She is discharged home in the custody of her who took her home. She also has clinical features consistent with rotator cuff tendinitis on the left. She received an intra-articular steroid and lidocaine following which her pain improved. Medical Records: Attestation: I reviewed the patient's medical records. Lab Data: Attestation: I reviewed the patient's lab results. Labs: Lab Results 10/25/20 10/25/20 10/25/20 Range/Units 17:09 17:24 17:24 WBC 4.3 (4.0-10.0) 10^3/ uL RBC 3.26 L (4.1-5.3) 10^6/u L Hgb 13.4 (11.5-15.3) g/dL Hct 37.4 (37.0-47.0) % MCV 114.7 H (81-99) fL MCH 41.1 H (28.0-34.0) pg MCHC 35.8 (30.0-36.0) g/dL RDW 13.2 (12.1-15.1) % Plt Count 152 (130-400) 10^3/c mm MPV 9.7 (7.4-10.4) fL Neut % (Auto) 30.0 % Lymph % (Auto) 56.1 % [place] % (Auto) 7.4 % Eos % (Auto) 3.2 % Baso % (Auto) 2.8 % Neut # (Auto) 1.30 L (1.8-7.7) 10^3/u L Lymph # (Auto) 2.4 (0.8-4.8) 10^3/u L [place] # (Auto) 0.3 (0.2-0.9) 10^3/u L Eos # (Auto) 0.1 (0.0-0.8) 10^3/u L Baso # (Auto) 0.1 (0.0-0.1) 10^3/u L Nucleated RBC % (a uto) 0 % Nucleated RBCs # 0.0 /100WBC Sodium 142 (136-145) mmol/L Potassium 3.3 L (3.5-5.1) mmol/L Chloride 102 (98-107) mmol/L Carbon Dioxide 25 (22-29) mmol/L Anion Gap 18.3 (5-19) BUN 4 L (6-20) mg/dL Creatinine 0.5 (0.5-0.9) mg/dL GFR Calculation 132.8 H (90-130) mL/min Glucose 90 (65-115) mg/dL Calculated Osmolal ity 290 (285-295) mOsm/k g Calcium 9.2 (8.5-10.5) mg/dL Total Bilirubin 0.4 (0.15-1.2) mg/dL AST 50 H (0-32) U/L ALT 27 (0-33) U/L Alkaline Phosphata se 121 H (35-105) IU/L Troponin T Baselin e (0-10) ng/L Troponin T 120 Min roberta (0-10) ng/L Delta Troponin T (0-10) ABS# Total Protein 8.0 (6.6-8.7) g/dL Albumin 4.4 (3.5-5.2) g/dL Globulin 3.6 (1.3-4.6) g/dL Salicylates < 0.3 L (3-10) mg/dL Urine Opiates Scre en Negative (Negative) ng/mL Acetaminophen < 5.0 L (10-30) ug/mL Ur Barbiturates Sc reen Negative (Negative) ng/mL Ur Phencyclidine S crn Negative (Negative) ng/mL Ur Amphetamines Sc reen Negative (Negative) ng/mL U Benzodiazepines Scrn Positive H (Negative) ng/mL Urine Cocaine Scre en Negative (Negative) ng/mL U Marijuana (THC) Screen Negative (Negative) ng/mL Ethyl Alcohol 350 H* (0-10) mg/dL 10/25/20 10/25/20 10/25/20 Range/Units 17:24 19:54 21:26 WBC (4.0-10.0) 10^3/ uL RBC (4.1-5.3) 10^6/u L Hgb (11.5-15.3) g/dL Hct (37.0-47.0) % MCV (81-99) fL MCH (28.0-34.0) pg MCHC (30.0-36.0) g/dL RDW (12.1-15.1) % Plt Count (130-400) 10^3/c mm MPV (7.4-10.4) fL Neut % (Auto) % Lymph % (Auto) % [place] % (Auto) % Eos % (Auto) % Baso % (Auto) % Neut # (Auto) (1.8-7.7) 10^3/u L Lymph # (Auto) (0.8-4.8) 10^3/u L [place] # (Auto) (0.2-0.9) 10^3/u L Eos # (Auto) (0.0-0.8) 10^3/u L Baso # (Auto) (0.0-0.1) 10^3/u L Nucleated RBC % (a uto) % Nucleated RBCs # /100WBC Sodium (136-145) mmol/L Potassium (3.5-5.1) mmol/L Chloride (98-107) mmol/L Carbon Dioxide (22-29) mmol/L Anion Gap (5-19) BUN (6-20) mg/dL Creatinine (0.5-0.9) mg/dL GFR Calculation (90-130) mL/min Glucose (65-115) mg/dL Calculated Osmolal ity (285-295) mOsm/k g Calcium (8.5-10.5) mg/dL Total Bilirubin (0.15-1.2) mg/dL AST (0-32) U/L ALT (0-33) U/L Alkaline Phosphata se (35-105) IU/L Troponin T Baselin e 10 (0-10) ng/L Troponin T 120 Min roberta 9.58 (0-10) ng/L Delta Troponin T -0.42 L (0-10) ABS# Total Protein (6.6-8.7) g/dL Albumin (3.5-5.2) g/dL Globulin (1.3-4.6) g/dL Salicylates (3-10) mg/dL Urine Opiates Scre en (Negative) ng/mL Acetaminophen (10-30) ug/mL Ur Barbiturates Sc reen (Negative) ng/mL Ur Phencyclidine S crn (Negative) ng/mL Ur Amphetamines Sc reen (Negative) ng/mL U Benzodiazepines Scrn (Negative) ng/mL Urine Cocaine Scre en (Negative) ng/mL U Marijuana (THC) Screen (Negative) ng/mL Ethyl Alcohol 211 H (0-10) mg/dL Imaging Data^: CT Head: Attestation: I personally reviewed and interpreted this imaging study as follows: Radiologist's impression: [address] [address] [address] Scan Report Signed Patient: Denisa Orourke #: [id number] : 1975Acct#:[id number] Age/Sex: 45 / FADM Date: 10/25/20 Loc: ERRoom/Bed: Attending Dr: Ordering Provider/Ordering MD: Aj Diggs MD Date of Service: 10/25/20 Procedure(s): CT head wo con* [id number] Accession Number(s): [id number] Report Number: [id number] PROCEDURE INFORMATION: Exam: CT Head Without Contrast Exam date and time: 10/25/2020 5:17 PM Age: 45 years old Clinical indication: Injury or trauma; Fall; Blunt trauma (contusions or hematomas); Without loss of consciousness; Patient HX: PT fell last night hitting [place] [employer] on nightstand denies loc TECHNIQUE: Imaging protocol: Computed tomography of the head without contrast. Radiation optimization: All CT scans at this facility use at least one of these dose optimization techniques: automated exposure control; mA and/or kV adjustment per patient size (includes targeted exams where dose is matched to clinical indication); or iterative reconstruction. COMPARISON: CT head wo con* [id number] 10/16/2017 5:39 PM RADIATION DOSE METRICS: Total DLP (mGy-cm): 853.59 FINDINGS: Brain: No evidence of acute infarct. No mass or mass effect. No intra axial hemorrhage. No extra axial fluid collection or hemorrhage. Mild cerebellar atrophy, similar to the prior exam. Cerebral ventricles: Symmetric and without enlargement. Bones/joints: No acute fracture. Paranasal sinuses: Visualized sinuses are well aerated. Mastoid air cells: Visualized mastoid air cells are well aerated. Soft tissues: No concerning abnormalities. CT/CT head wo con* [id number] IMPRESSION: 1. No acute intracranial abnormality. 2. Nonspecific cerebellar atrophy. Radiation Dose CTDIVOL = (mGy): DLP = 853.59 (mGy-cm) Dictated By:Duarte Cunha Signed By:Kayden Cunha Date/Time:10/25/201758 DD/ 56 EKG Data^: EKG 1: Attestation: I personally reviewed and interpreted this EKG as follows: EKG interpretation date: 10/25/20 EKG interpretation time: 20:25 Prior EKG tracings: not available for review Interpretation: Normal sinus rhythm. Heart rate 83 bpm. Right ventricular conduction delay. No ST changes. Discharge Plan Discharge Patient Disposition: Home Clinical Impression: Tendonitis of left rotator cuff Alcohol intoxication Qualifiers: Complication of substance-induced condition: uncomplicated Qualified Code(s): F10.920 - Alcohol use, unspecified with intoxication, uncomplicated Condition: Stable Prescriptions: Continued pseudoephedrine HCl 60 mg tablet 60 mg PO Q12H PRN (Reason: nasal congestion) Qty: 30 RF: 0 ondansetron HCl [Zofran] 4 mg tablet 4 mg PO Q6H PRN (Reason: nausea and vomiting) Qty: 20 RF: 0 Xarelto 15 mg tablet 15 mg PO BID RF: 0 Tessalon Perles 100 mg capsule 100 mg PO TID PRN (Reason: cough) Qty: 21 RF: 0 cetirizine [Zyrtec] 10 mg Tablet 10 mg PO BID RF: 0 thiamine mononitrate (vit B1) [Vitamin B-1 (mononitrate)] 100 mg Tablet 100 mg PO DAILY Qty: 30 RF: 0 Vitamin B-12 2 tab PO DAILY RF: 0 multivitamin [Multiple Vitamins] Tablet 1 tab PO DAILY RF: 0 folic acid 400 mcg Tablet 800 mcg PO DAILY RF: 0 acetaminophen [Tylenol Extra Strength] 500 mg Tablet 1,000 mg PO PRN RF: 0 Discharge Orders: Discharge ED (Routine); Ordered 10/25/20 Ordered By: Shannon Barber Referrals: Jeni Monsivais MD [Primary Care Provider] - 1-3 days Discharge Diet: Usual diet Discharge Activity: Increase activity as tolerated Patient Instructions: Rotator Cuff Tendinitis (ED), Alcohol Intoxication (ED) Activity Restrictions/Additional Instructions: Return for any new or worsening symptoms. Follow-up with your primary care provider within 3 days. Continue your home medications as prescribed. Coding Level of Care Code ED Em Physician for Apryl Salas
[2020-10-25] MEDS: lidocaine 1% INJ 20 mL INTRADERMA (22:46)
[2020-10-25] MEDS: triamcinolone 40 mg/mL SDV INTRADERMA (22:47)
[2020-10-25 23:02] VITALS: BP 135/92; PULSE 88; RESP 18; O2SAT 97
[2020-10-25 23:23] VITALS: PULSE 82; RESP 18; O2SAT 97
== END 2020-10-25 23:25 | disposition home or self-care (01) ==
PROVIDERS: Emergency Medicine; Emergency Provider Family Medicine; PCP Family Medicine
DX: F10.920 Alcohol use, unspecified with intoxication, uncomplicated (principal); M77.8 Other enthesopathies, not elsewhere classified; Y90.8 Blood alcohol level of 240 mg/100 ml or more; I12.9 Hypertensive chronic kidney disease with stage 1 through stage 4 chronic kidney disease, or unspecified chronic kidney disease; N18.2 Chronic kidney disease, stage 2 (mild); F17.210 Nicotine dependence, cigarettes, uncomplicated
CPT/HCPCS: 20610; 70450; 80053; 80306; 80307; 84484; 85025; 93005; 99284; J3301

== ENCOUNTER 2020-10-27 12:30 | Emergency (ER) | payer SELFPAY ==
[2020-10-27 12:43] VITALS: BP 131/97; PULSE 122; RESP 16; TEMP 36.5; O2SAT 96; BMI 21.2
--- NOTE | 2020-10-27 13:05 | W.ED.ANXIETY ---
HPI - Anxiety General: Chief Complaint: Anxiety Stated Complaint: RICH DIAZ ADMITTED Time Seen by Provider: 10/27/20 12:48 History of Present Illness: HPI narrative: 45-year-old female presents emergency room with complaints of excessive alcohol intake anxiety and stress. She denies suicidal homicidal ideation. She states she drank half a pint to a pint of whiskey today. She drinks daily. The longest she has gone last year without drinking is been a week and a half. She is never had any withdrawal seizures she is not had any liver problems ulcers or esophageal varices that she is known of. No previous hospitalizations for pancreatitis. She denies suicidal plan other than continuing to drink which she acknowledges will eventually kill her if she persists. MD complaint: anxiety Onset (ago): month(s) Severity: moderate Quality: intermittent History of similar episodes: Yes Provoking factors: emotional stress Relieving factors: nothing Exacerbating factors: other (Alcohol) Associated symptoms: Deny anorexia, chest pain, chills, confusion, diaphoresis, fever(s), headache(s), malaise, nausea, palpitations, short of breath, syncope, vomiting or weakness Review of Systems Const: Denies: chills, malaise or diaphoresis ENMT: Denies: throat pain, ear or mastoid pain, nasal discharge or nasal congestion Card: Denies: chest pain, palpitations or syncope Resp: Denies: dyspnea, productive cough or non-productive cough GI: Denies: nausea or vomiting : Denies: flank pain, difficulty voiding, dysuria, urinary frequency or urinary urgency Skin/Breast: Denies: rash or pruritus Neuro: Denies: headache(s) or confusion [facility] ED PFSH: Medical History Back pain CKD (chronic kidney disease) stage 2, GFR 60-89 ml/min Dyshidrotic hand dermatitis Fibromyalgia GERD (gastroesophageal reflux disease) Gram-negative bacteremia H/O HTN (hypertension) Hypothyroidism (acquired) Macrocytosis Migraine without aura, not intractable, without status migrainosus Nicotine abuse PSVT (paroxysmal supraventricular tachycardia) Pulmonary emboli Recurrent UTI Renal infarct Spinal stenosis, cervical region Transaminitis Vitamin B12 deficiency anemia Vitamin D deficiency Surgical History H/O colonoscopy 2018 - normal History of hysterectomy with bilateral oophorectomy History of radiofrequency ablation (RFA) procedure for cardiac arrhythmia Hx of appendectomy S/P carpal tunnel release S/P tubal ligation Family History Mother Atrial fibrillation Hypertension Social History Smoking and tobacco status: current every day smoker cigarettes Packs smoked per day: 0.5 Years cigarettes smoked: 30 Alcohol intake: current Alcohol intake frequency: 0-2 Drinks per Day Lives independently: Yes Household members: spouse and family Marital status: service: No Current occupational status: unemployed History of recent travel: No Current gender identity: Female Female Reproductive History: Date of last menstrual period: 07/31/10 Physical Exam Const: COMMON NORMALS: no acute distress GENERAL APPEARANCE: cooperative and comfortable ORIENTATION/CONSCIOUSNESS: Yes awake, Yes oriented to person, Yes oriented to place and Yes oriented to time HENMT: COMMON NORMALS: normocephalic, atraumatic and hearing grossly normal bilaterally HEAD & SCALP: normocephalic and atraumatic Neck/C-Spine: COMMON NORMALS: no JVD Resp: COMMON NORMALS: normal respiratory effort, No retractions, No use of accessory muscles and clear to auscultation bilaterally AUSCULTATION: clear to auscultation bilaterally Cardio: COMMON NORMALS: no JVD, regular rate, regular rhythm and No murmurs present (Cardio) RATE: regular rate RHYTHM: regular rhythm GI: COMMON NORMALS: Soft to palpation and No hepatosplenomegaly present AUSCULTATION: Yes normoactive bowel sounds PALPATION: Yes Soft to palpation, No Tenderness to palpation present (GI), No Guarding due to palpation present (GI) and Yes No hepatosplenomegaly present Extremity: COMMON NORMALS: normal to inspection, capillary refill normal, no clubbing, cyanosis or edema, no calf tenderness and no pedal edema Neuro: SENSORIUM/ORIENTATION: Yes oriented to person, Yes oriented to place and Yes oriented to time Skin: COMMON NORMALS: no rashes or lesions noted GENERAL SKIN EXAM: no rashes or lesions noted Course Vital Signs: Vital signs: Vital Signs Temperature 97.7 F 10/27/20 12:43 Pulse Rate 93 10/27/20 15:16 Respiratory Rate 18 10/27/20 15:16 Blood Pressure 119/92 10/27/20 15:16 Pulse Oximetry 99 10/27/20 15:16 MDM - Anxiety MDM Narrative: Medical decision making narrative: Long discussion with the patient she has anxiety that she treats with alcohol. However she is quite clear and repeatedly answers questions regarding suicidal ideation intent or planning in the negative. We call to make arrangements to get her evaluated at [facility] they have waiting list. At this point she is does not have indication for acute admission to the neuropsychiatric unit. Recommend that we treat her anxiety with p.o. medications. Have her use 1 to 2 mg p.o. every 8 hours as needed of Ativan also recommend that she abstain from alcohol and follow-up with an outpatient treatment center. If things worsen or change she can return. Lab Data: Labs: Lab Results 10/27/20 10/27/20 Range/Units 13:52 13:52 WBC 5.4 (4.0-10.0) 10^3/ uL RBC 3.08 L (4.1-5.3) 10^6/u L Hgb 12.7 (11.5-15.3) g/dL Hct 36.2 L (37.0-47.0) % MCV 117.5 H (81-99) fL MCH 41.2 H (28.0-34.0) pg MCHC 35.1 (30.0-36.0) g/dL RDW 13.6 (12.1-15.1) % Plt Count 118 L (130-400) 10^3/c mm MPV 10.3 (7.4-10.4) fL Neut % (Auto) 71.2 % Lymph % (Auto) 22.3 % [place] % (Auto) 5.5 % Eos % (Auto) 0.0 % Baso % (Auto) 0.4 % Neut # (Auto) 3.87 (1.8-7.7) 10^3/u L Lymph # (Auto) 1.2 (0.8-4.8) 10^3/u L [place] # (Auto) 0.3 (0.2-0.9) 10^3/u L Eos # (Auto) 0.0 (0.0-0.8) 10^3/u L Baso # (Auto) 0.0 (0.0-0.1) 10^3/u L Nucleated RBC % (a uto) 0 % Nucleated RBCs # 0.0 /100WBC Sodium 142 (136-145) mmol/L Potassium 3.5 (3.5-5.1) mmol/L Chloride 101 (98-107) mmol/L Carbon Dioxide 23 (22-29) mmol/L Anion Gap 21.5 H (5-19) BUN 6 (6-20) mg/dL Creatinine 0.9 (0.5-0.9) mg/dL GFR Calculation 67.4 L (90-130) mL/min Glucose 100 (65-115) mg/dL Calculated Osmolal ity 292 (285-295) mOsm/k g Calcium 8.7 (8.5-10.5) mg/dL Total Bilirubin 0.4 (0.15-1.2) mg/dL AST 53 H (0-32) U/L ALT 27 (0-33) U/L Alkaline Phosphata se 115 H (35-105) IU/L Total Protein 7.6 (6.6-8.7) g/dL Albumin 4.2 (3.5-5.2) g/dL Globulin 3.4 (1.3-4.6) g/dL Discharge Plan Discharge Patient Disposition: Home Clinical Impression: Alcohol abuse, Anxiety Condition: Stable Prescriptions: New Ativan 2 mg tablet 2 mg PO Q8H PRN (Reason: anxiety) Qty: 14 RF: 0 No Action pseudoephedrine HCl 60 mg tablet 60 mg PO Q12H PRN (Reason: nasal congestion) Qty: 30 RF: 0 ondansetron HCl [Zofran] 4 mg tablet 4 mg PO Q6H PRN (Reason: nausea and vomiting) Qty: 20 RF: 0 Xarelto 15 mg tablet 15 mg PO BID RF: 0 Nexium 20 mg Capsule,Delayed Release(Dr/Ec) 20 mg PO BID RF: 0 cetirizine [Zyrtec] 10 mg Tablet 10 mg PO BID RF: 0 multivitamin [Multiple Vitamins] Tablet 1 tab PO DAILY RF: 0 folic acid 400 mcg Tablet 800 mcg PO DAILY RF: 0 acetaminophen [Tylenol Extra Strength] 500 mg Tablet 1,000 mg PO PRN RF: 0 Discharge Orders: Discharge ED (Routine); Ordered 10/27/20 Ordered By: Fer Reynoso Referrals: Jeni Monsivais MD [Primary Care Provider] - Discharge Diet: Usual diet Discharge Activity: Resume usual activity Patient Instructions: Opioid Safety Activity Restrictions/Additional Instructions: Recommend you pursue assistance with cessation of alcohol through a program such as [facility]. Also recommend that you are evaluated at [facility] for your anxiety. Coding Level of Care Code ED Critical Care Unit Manager for [facility] Fwd 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
--- NOTE | 2020-10-27 14:05 | DCPLANNER ---
web production manager was asked to call [facility] to see if the facility would be able to accept patient at this time. web production manager spoke with [facility], was told that the facility was full at this time. Patient could fill out initial paperwork and turn it back into [facility], to get on the waiting list. web production manager had the paperwork faxed to the ER, and gave it to patient to fill out and turn into [facility].
[2020-10-27 14:08] LABS: Basophils % 0.4 %; Hematocrit 36.2 % (37.0-47.0); Hemoglobin 12.7 g/dL (11.5-15.3); Lymphocytes # 1.2 10^3/uL (0.8-4.8); Lymphocytes % 22.3 %; Mean Corpuscular HGB Conc 35.1 g/dL (30.0-36.0); Mean Corpuscular Hemoglobin 41.2 pg (28.0-34.0); Mean Corpuscular Volume 117.5 fL (81-99); Mean Platelet Volume 10.3 fL (7.4-10.4); Monocytes # 0.3 10^3/uL (0.2-0.9); Monocytes % 5.5 %; Neutrophils # 3.87 10^3/uL (1.8-7.7); Neutrophils % 71.2 %; Nucleated Red Blood Cells % 0 %; Platelet Count 118 10^3/cmm (130-400); Red Blood Count 3.08 10^6/uL (4.1-5.3); Red Cell Distribution Width 13.6 % (12.1-15.1); White Blood Count 5.4 10^3/uL (4.0-10.0)
[2020-10-27] MEDS: ibuprofen 800 mg tablet PO (14:23)
[2020-10-27 14:29] LABS: Alanine Aminotransferase 27 U/L (0-33); Albumin Level 4.2 g/dL (3.5-5.2); Alkaline Phosphatase 115 IU/L (35-105); Anion Gap 21.5 (5-19); Aspartate Amino Transferase 53 U/L (0-32); Blood Urea Nitrogen 6 mg/dL (6-20); Calcium 8.7 mg/dL (8.5-10.5); Carbon Dioxide 23 mmol/L (22-29); Chloride 101 mmol/L (98-107); Globulin 3.4 g/dL (1.3-4.6); Glomerular Filtration Rate 67.4 mL/min (90-130); Glucose 100 mg/dL (65-115); Osmolality Calculated 292 mOsm/kg (285-295); Potassium 3.5 mmol/L (3.5-5.1); Sodium 142 mmol/L (136-145); Total Bilirubin 0.4 mg/dL (0.15-1.2); Total Protein 7.6 g/dL (6.6-8.7)
[2020-10-27] MEDS: LORazepam 1 mg Tablet PO (14:50)
[2020-10-27 15:16] VITALS: BP 119/92; PULSE 93; RESP 18; O2SAT 99
--- NOTE | 2020-10-29 09:07 | DCPLANNER ---
biodiesel product manager had a message to speak with patient about services at [facility] [place]. biodiesel product manager called phone number [phone], unable to speak with patient at this time. biodiesel product manager left a voicemail for patient to return manager rn case phone call.
== END 2020-10-27 15:19 | disposition home or self-care (01) ==
PROVIDERS: Emergency Provider Family Medicine; PCP Family Medicine
DX: F41.9 Anxiety disorder, unspecified (principal); F10.10 Alcohol abuse, uncomplicated; I12.9 Hypertensive chronic kidney disease with stage 1 through stage 4 chronic kidney disease, or unspecified chronic kidney disease; N18.2 Chronic kidney disease, stage 2 (mild); F17.210 Nicotine dependence, cigarettes, uncomplicated
CPT/HCPCS: 36415; 80053; 85025; 99283

== ENCOUNTER 2020-10-30 16:34 | Inpatient (IN) | payer SELFPAY ==
[2020-10-30 16:40] VITALS: BP 138/97; PULSE 97; RESP 18; TEMP 36.8; O2SAT 100; BMI 21.6
[2020-10-30 17:28] LABS: Basophils % 0.3 %; Eosinophils % 0.2 %; Hemoglobin 12.6 g/dL (11.5-15.3); Lymphocytes # 1.3 10^3/uL (0.8-4.8); Lymphocytes % 20.7 %; Mean Corpuscular Hemoglobin 41.3 pg (28.0-34.0); Mean Platelet Volume 10.8 fL (7.4-10.4); Monocytes # 0.3 10^3/uL (0.2-0.9); Monocytes % 4.1 %; Neutrophils # 4.55 10^3/uL (1.8-7.7); Neutrophils % 74.2 %; Nucleated Red Blood Cells % 0 %; Platelet Count 71 10^3/cmm (130-400); Red Blood Count 3.05 10^6/uL (4.1-5.3); Red Cell Distribution Width 12.9 % (12.1-15.1); White Blood Count 6.1 10^3/uL (4.0-10.0)
[2020-10-30 17:39] LABS: HCG Qualitative Urine. Negative (Negative)
[2020-10-30 17:43] LABS: Urine Appearance Turbid (CLEAR); Urine Color Orange (Yellow); pH Urine 8 (5-7)
[2020-10-30 17:44] LABS: Add Urine Microscopic? YES; Amphetamines Screen Urine Negative (Negative); Barbiturates Screen Urine Negative (Negative); Benzodiazepines Screen Urine Positive (Negative); Bilirubin Urine 1+ (Negative); Blood Urine 3+ (Negative); Cocaine Screen Urine Negative (Negative); Glucose Urine UA Norm (Normal); Ketones Urine 1+ (Negative); Leukocyte Esterase Urine 2+ (Negative); Nitrate Urine Positive (Negative); Opiate Screen Urine Negative (Negative); PCP Screen Urine Negative (Negative); Protein Urine 3+ (Negative); Specific Gravity, Urine 1.005 (1.005-1.030); Sulfosalicylic Acid Urine Positive (Negative); THC Screen Urine Negative (Negative); Urobilinogen Urine 4 mg/dL (Negative)
[2020-10-30 17:46] LABS: Bacteria Urine 4+ /hpf; Squamous Epithelial Cell Urine 0-4 /hpf (0-5)
[2020-10-30 17:48] LABS: RBC Urine 25-40 /hpf (0-2); WBC Urine 40-55 /hpf (0-5)
[2020-10-30 17:49] LABS: Add Urine Culture? Yes
[2020-10-30 18:17] LABS: Alanine Aminotransferase 26 U/L (0-33); Albumin Level 4.5 g/dL (3.5-5.2); Alkaline Phosphatase 113 IU/L (35-105); Anion Gap 16.7 (5-19); Aspartate Amino Transferase 38 U/L (0-32); Blood Urea Nitrogen 16 mg/dL (6-20); Calcium 9.7 mg/dL (8.5-10.5); Carbon Dioxide 26 mmol/L (22-29); Chloride 97 mmol/L (98-107); Glomerular Filtration Rate 90.1 mL/min (90-130); Glucose 92 mg/dL (65-115); Osmolality Calculated 283 mOsm/kg (285-295); Potassium 3.7 mmol/L (3.5-5.1); Sodium 136 mmol/L (136-145); Thyroid Stimulating Hormone 3.45 uIU/mL (0.27-4.20); Total Bilirubin 1.9 mg/dL (0.15-1.2); Total Protein 7.5 g/dL (6.6-8.7)
[2020-10-30 18:20] LABS: Acetaminophen < 5.0 ug/mL (10-30); Alcohol Level < 10 mg/dL (0-10); Salicylate < 0.3 mg/dL (3-10)
--- NOTE | 2020-10-30 18:50 | ED_ITS ---
HPI - Psych General: Chief Complaint: Psychiatric Symptoms Stated Complaint: psych eval Time Seen by Provider: 10/30/20 16:59 History of Present Illness: HPI Narrative: The patient is a 45-year-old female who comes to the ER complaining of depression and making some passive statements like she wishes she was . She says she has been increasing her alcohol usage and trying to drink more and sometimes she says she has more money why does not she go by another bottle of alcohol so she does not wake up. She has not set up care with psych yet but has visited the ER multiple times. Her says that he has a sick relative to take care of and work and is worried about her leaving her at home that she might try to do something to hurt herself. She has attempted to take pills in the past overdose. She also does admit some mild dysuria. complaint: feels depressed Context: recent alcohol abuse Associated psychiatric symptoms: depression Associated symptoms: Reports depression Review of Systems General: Reports: 10 or more systems reviewed and unremarkable except in HPI and below Const: Denies: fatigue Eyes: Denies: change in vision, blurry vision or eye redness ENMT: Denies: throat pain, swelling of lips/tongue, ear or mastoid pain or nasal congestion Card: Denies: chest pain, palpitations, irregular heart rhythm, edema, dyspnea on exertion or orthopnea Resp: Denies: dyspnea, productive cough or non-productive cough GI: Denies: abdominal pain, diarrhea or GI cramping : Reports: other (Mild dysuria); Denies: flank pain, difficulty voiding, urinary frequency or urinary urgency Musc: Denies: neck pain, back pain, extremity pain, joint pain, joint redness, limited range of motion or muscle weakness Skin/Breast: Denies: rash, pruritus, erythema, skin pain or skin tenderness Neuro: Denies: headache(s), numbness in extremities, weakness in extremities, sensory changes, difficulty walking, dizziness, confusion or Slurred speech present Psych: Reports: depression Endo: Denies: polyuria All/Imm: Denies: urticaria, throat swelling or tongue swelling PFS ED PFSH: Medical History Back pain CKD (chronic kidney disease) stage 2, GFR 60-89 ml/min Dyshidrotic hand dermatitis Fibromyalgia GERD (gastroesophageal reflux disease) Gram-negative bacteremia H/O HTN (hypertension) Hypothyroidism (acquired) Macrocytosis Migraine without aura, not intractable, without status migrainosus Nicotine abuse PSVT (paroxysmal supraventricular tachycardia) Pulmonary emboli Recurrent UTI Renal infarct Spinal stenosis, cervical region Transaminitis Vitamin B12 deficiency anemia Vitamin D deficiency Surgical History H/O colonoscopy 2018 - normal History of hysterectomy with bilateral oophorectomy History of radiofrequency ablation (RFA) procedure for cardiac arrhythmia Hx of appendectomy S/P carpal tunnel release S/P tubal ligation Family History Mother Atrial fibrillation Hypertension Social History Smoking and tobacco status: current every day smoker cigarettes Packs smoked per day: 0.5 Years cigarettes smoked: 30 Alcohol intake: current Alcohol intake frequency: 0-2 Drinks per Day Lives independently: Yes Household members: spouse and family Marital status: service: No Current occupational status: unemployed History of recent travel: No Current gender identity: Female Female Reproductive History: Date of last menstrual period: 07/31/10 Physical Exam Const: COMMON NORMALS: no acute distress, average body habitus, patient oriented x3, no limitations, healthy appearing, alert and well nourished GENERAL APPEARANCE: cooperative, comfortable and well developed O RIENTATION/CONSCIOUSNESS: Yes awake, Yes oriented to person, Yes oriented to place and Yes oriented to time HENMT: COMMON NORMALS: normocephalic, external ears normal and Normal external nose present HEAD & SCALP: normal to inspection and normocephalic NOSE: Normal external nose present EXTERNAL EAR: Yes external ears normal MOUTH: Normal oral and palatal mucosa present THROAT: posterior oropharynx normal Eye: COMMON NORMALS: Equal, round and reactive pupils present and EOMs intact bilaterally GENERAL EYE: appearance normal, both eyes and all related structures PUPIL: Yes Equal, round and reactive pupils present Neck/C-Spine: COMMON NORMALS: full ROM, no lymphadenopathy, no meningeal signs and no JVD GENERAL: Yes normal visual inspection Lymph: LYMPHATIC: no lymphadenopathy noted Chest: COMMONS NORMALS: normal inspection of the chest and normal palpation of entire chest wall Resp: COMMON NORMALS: normal respiratory effort, No retractions, No use of accessory muscles, clear to auscultation bilaterally and percussion normal EFFORT & INSPECTION: Yes able to speak in complete sentences AUSCULTATION: clear to auscultation bilaterally PERCUSSION: percussion normal Cardio: COMMON NORMALS: no JVD, regular rate, regular rhythm, S1 normal heart sound present, S2 normal heart sound present and Peripheral pulses 2+ throughout RATE: regular rate RHYTHM: regular rhythm HEART SOUNDS: S1 normal heart sound present and S2 normal heart sound present PERIPHERAL PULSES: Peripheral pulses 2+ throughout GI: COMMON NORMALS: Normal to inspection, nondistended, normoactive bowel sounds present, Soft to palpation, non-tender and no masses INSPECTION: Yes normal to inspection PALPATION: Yes Soft to palpation : COMMON NORMALS: Yes no CVA tenderness BLADDER/KIDNEY EXAM: Yes no CVA tenderness Back/Pelvis: COMMON NORMALS: no CVA tenderness, thoracic and lumbar spine norm al to inspection, no thoracic nor lumbar tenderness and thoraco-lumbar ROM normal Extremity: COMMON NORMALS: normal to inspection, full ROM, capillary refill normal, no joint enlargement and no pedal edema GENERAL: Yes normal exam except as noted Neuro: COMMON NORMALS: patient oriented x3, CN's II-XII intact bilaterally, moves all extremities, no focal motor deficits, no sensory deficits noted and gait normal SENSORIUM/ORIENTATION: Yes alert, Yes oriented to person, Yes oriented to place and Yes oriented to time MENINGEAL SIGNS: Yes no meningeal signs Psych: COMMON NORMALS: mental status grossly normal, Normal thought process present, cooperative, normal affect and speech normal APPEARANCE: Yes unkempt ATTITUDE: Yes calm SPEECH: Yes normal speech MOOD & AFFECT: Yes depressed mood THOUGHT PROCESS: Normal thought process present THOUGHT CONTENT: No Suicidality present and No Homicidality present Skin: COMMON NORMALS: no rashes or lesions noted GENERAL SKIN EXAM: no rashes or lesions noted MDM - Psych MDM Narrative: Medical decision making narrative: The patient has been sent to the ER multiple times for depression and alcohol. I discussed with Dr. Aguayo who recommended admitting her and he can see her in the neuropsych unit. She has not drank alcohol today her alcohol is zero. Her urinalysis has lots of white blood cells and red cells and likely indicates cystitis. Started her on Macrobid for this. Lab Data: Labs: Lab Results 10/30/20 10/30/20 10/30/20 Range/Units 17:10 17:10 17:10 WBC (4.0-10.0) 10^3/ uL RBC (4.1-5.3) 10^6/u L Hgb (11.5-15.3) g/dL Hct (37.0-47.0) % MCV (81-99) fL MCH (28.0-34.0) pg MCHC (30.0-36.0) g/dL RDW (12.1-15.1) % Plt Count (130-400) 10^3/c mm MPV (7.4-10.4) fL Neut % (Auto) % Lymph % (Auto) % [place] % (Auto) % Eos % (Auto) % Baso % (Auto) % Neut # (Auto) (1.8-7.7) 10^3/u L Lymph # (Auto) (0.8-4.8) 10^3/u L [place] # (Auto) (0.2-0.9) 10^3/u L Eos # (Auto) (0.0-0.8) 10^3/u L Baso # (Auto) (0.0-0.1) 10^3/u L Nucleated RBC % (a uto) % Nucleated RBCs # /100WBC Sodium (136-145) mmol/L Potassium (3.5-5.1) mmol/L Chloride (98-107) mmol/L Carbon Dioxide (22-29) mmol/L Anion Gap (5-19) BUN (6-20) mg/dL Creatinine (0.5-0.9) mg/dL GFR Calculation (90-130) mL/min Glucose (65-115) mg/dL Calculated Osmolal ity (285-295) mOsm/k g Calcium (8.5-10.5) mg/dL Total Bilirubin (0.15-1.2) mg/dL AST (0-32) U/L ALT (0-33) U/L Alkaline Phosphata se (35-105) IU/L Total Protein (6.6-8.7) g/dL Albumin (3.5-5.2) g/dL Globulin (1.3-4.6) g/dL TSH (0.27-4.20) uIU/ mL HCG, Qual Negative (Negative) Urine Color Angelina (Yellow) Urine Appearance Turbid (CLEAR) Urine pH 8 H (5-7) Ur Specific Gravit y 1.005 (1.005-1.030) Urine Protein 3+ H (Negative) Urine Glucose (UA) Norm (Normal) Urine Ketones 1+ H (Negative) Urine Blood 3+ H (Negative) Urine Nitrate Positive H (Negative) Urine Bilirubin 1+ H (Negative) Prot Sulfosalicyli c Acd Positive (Negative) Urine Urobilinogen 4 H (Negative) mg/dL Ur Leukocyte Rachel ase 2+ H (Negative) Urine RBC 25-40 H (0-2) /hpf Urine WBC 40-55 H (0-5) /hpf Ur Squamous Epith Cells 0-4 H (0-5) /hpf Amorphous Sediment Not Reportable Urine Bacteria 4+ H (NONE) /hpf Urine Yeast Trace /hpf Salicylates (3-10) mg/dL Urine Opiates Scre en Negative (Negative) ng/mL Acetaminophen (10-30) ug/mL Ur Barbiturates Sc reen Negative (Negative) ng/mL Ur Phencyclidine S crn Negative (Negative) ng/mL Ur Amphetamines Sc reen Negative (Negative) ng/mL U Benzodiazepines Scrn Positive H (Negative) ng/mL Urine Cocaine Scre en Negative (Negative) ng/mL U Marijuana (THC) Screen Negative (Negative) ng/mL Ethyl Alcohol (0-10) mg/dL 10/30/20 10/30/20 Range/Units 17:17 17:17 WBC 6.1 (4.0-10.0) 10^3/ uL RBC 3.05 L (4.1-5.3) 10^6/u L Hgb 12.6 (11.5-15.3) g/dL Hct 36.0 L (37.0-47.0) % MCV 118.0 H (81-99) fL MCH 41.3 H (28.0-34.0) pg MCHC 35.0 (30.0-36.0) g/dL RDW 12.9 (12.1-15.1) % Plt Count 71 L (130-400) 10^3/c mm MPV 10.8 H (7.4-10.4) fL Neut % (Auto) 74.2 % Lymph % (Auto) 20.7 % [place] % (Auto) 4.1 % Eos % (Auto) 0.2 % Baso % (Auto) 0.3 % Neut # (Auto) 4.55 (1.8-7.7) 10^3/u L Lymph # (Auto) 1.3 (0.8-4.8) 10^3/u L [place] # (Auto) 0.3 (0.2-0.9) 10^3/u L Eos # (Auto) 0.0 (0.0-0.8) 10^3/u L Baso # (Auto) 0.0 (0.0-0.1) 10^3/u L Nucleated RBC % (a uto) 0 % Nucleated RBCs # 0.0 /100WBC Sodium 136 (136-145) mmol/L Potassium 3.7 (3.5-5.1) mmol/L Chloride 97 L (98-107) mmol/L Carbon Dioxide 26 (22-29) mmol/L Anion Gap 16.7 (5-19) BUN 16 (6-20) mg/dL Creatinine 0.7 (0.5-0.9) mg/dL GFR Calculation 90.1 (90-130) mL/min Glucose 92 (65-115) mg/dL Calculated Osmolal ity 283 L (285-295) mOsm/k g Calcium 9.7 (8.5-10.5) mg/dL Total Bilirubin 1.9 H (0.15-1.2) mg/dL AST 38 H (0-32) U/L ALT 26 (0-33) U/L Alkaline Phosphata se 113 H (35-105) IU/L Total Protein 7.5 (6.6-8.7) g/dL Albumin 4.5 (3.5-5.2) g/dL Globulin 3.0 (1.3-4.6) g/dL TSH 3.45 (0.27-4.20) uIU/ mL HCG, Qual (Negative) Urine Color (Yellow) Urine Appearance (CLEAR) Urine pH (5-7) Ur Specific Gravit y (1.005-1.030) Urine Protein (Negative) Urine Glucose (UA) (Normal) Urine Ketones (Negative) Urine Blood (Negative) Urine Nitrate (Negative) Urine Bilirubin (Negative) Prot Sulfosalicyli c Acd (Negative) Urine Urobilinogen (Negative) mg/dL Ur Leukocyte Rachel ase (Negative) Urine RBC (0-2) /hpf Urine WBC (0-5) /hpf Ur Squamous Epith Cells (0-5) /hpf Amorphous Sediment Urine Bacteria (NONE) /hpf Urine Yeast /hpf Salicylates < 0.3 L (3-10) mg/dL Urine Opiates Scre en (Negative) ng/mL Acetaminophen < 5.0 L (10-30) ug/mL Ur Barbiturates Sc reen (Negative) ng/mL Ur Phencyclidine S crn (Negative) ng/mL Ur Amphetamines Sc reen (Negative) ng/mL U Benzodiazepines Scrn (Negative) ng/mL Urine Cocaine Scre en (Negative) ng/mL U Marijuana (THC) Screen (Negative) ng/mL Ethyl Alcohol < 10 (0-10) mg/dL Discharge Plan Discharge Patient Disposition: Admitted As Inpatient Clinical Impression: Depression, UTI (urinary tract infection) Condition: Stable Coding Level of Care Code ED [facility] for Apryl Salas
[2020-10-30 19:46] VITALS: BP 149/102; PULSE 95; RESP 15; O2SAT 96
[2020-10-30 20:22] VITALS: BP 133/101; PULSE 97; RESP 17; TEMP 36.6; O2SAT 95
[2020-10-30 22:00] VITALS: BP 133/101; PULSE 97; RESP 17; TEMP 36.6; O2SAT 95
[2020-10-30] MEDS: nitrofurantoin SR (BID) 100 mg Capsule PO (23:00)
[2020-10-30] MEDS: diclofenac 1% Topical Gel 100 gm 1 APPLIC TOPICAL (23:15)
[2020-10-30] MEDS: LORazepam 2 mg Tablet PO (23:20)
--- NOTE | 2020-10-30 23:20 | PC.NURSE ---
PRN ATIVAN Patient states she is feeling anxious and requesting her PRN Ativan. Patient very withdrawn, making poor eye contact. Very soft spoken when answering questions. Ativan given - see MAR. Will follow up for effectiveness.
--- NOTE | 2020-10-30 23:38 | PC.NURSE ---
scheduled topical pain medication given - see MAR
[2020-10-31 06:00] VITALS: BP 139/102; PULSE 94; RESP 16; TEMP 37.2; O2SAT 95
[2020-10-31] MEDS: cetirizine 10 mg Tablet PO ×2 (08:00→20:51)
[2020-10-31] MEDS: diclofenac 1% Topical Gel 100 gm 1 APPLIC TOPICAL ×2 (08:01→21:07)
[2020-10-31] MEDS: fluoxetine 20 mg Capsule PO (12:35)
[2020-10-31] MEDS: propranolol 20 mg Tablet PO ×2 (12:44→20:51)
--- NOTE | 2020-10-31 12:48 | PC.NURSE ---
Addendum entered by Jada Villalta LPN 10/31/20 14:38: prn med effective no further c/o anxiety, pt does cont to isolate to room Original Note: PRN INDERAL 20 MG GIVEN PO PER PT C/O STATED ANXIETY. PT MOOD IS FLAT, IRRITABLE AFFECT NOTED. PT UPSET SHE ISN'T GETTING THE RIGHT FOOD HERE PT OFFERED SEVERAL OTHER FOOD OPTIONS, PT DENIES ANY STAFF ATTEMPTS TO GIVE HER FOOD. ISOLATING TO HER ROOM AT THIS TIME. WILL CONT TO MONITOR
[2020-10-31 13:19] VITALS: BP 137/99; PULSE 94; RESP 18; TEMP 37.2
[2020-10-31] MEDS: nicotine 21 mg Patch 1 PATCH TRANSDERMA (13:23)
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
--- NOTE | 2020-10-31 14:17 | PC.NURSE ---
REFUSED SCHEDULED VOLTAREN GEL, PT STATED IT'S NOT REALLY DOING MUCH FOR ME
[2020-10-31] MEDS: trazodone 50 mg Tablet PO (20:50)
[2020-10-31] MEDS: acetaminophen 325 mg Tablet 650 MG PO (20:51)
[2020-10-31] MEDS: loperamide 2 mg Capsule PO (21:48)
[2020-10-31] MEDS: ondansetron 4 MG Tablet PO (21:48)
[2020-10-31 21:54] VITALS: BMI 21.6
[2020-10-31 22:00] VITALS: BP 130/89; PULSE 87; RESP 17; TEMP 36.9; O2SAT 95
--- NOTE | 2020-10-31 22:09 | PC.NURSE ---
PM assessment PT DENIES SI/HI, ADMITS TO UNCONTROLLED DEPRESSION, SOME ANXIETY NOTED. DENIES AH/VH, REPORTS LEFT SHOULDER PAIN, RATE A 7 ON 1-10. 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 PT SAYS SHE IS OVERWHELMED BY HER LIFE, CARING FOR A SICK LADY IN HER 80'S IS TAKING A TOLL ON HER BODY/MIND, SHE SAYS SHE CAN'T TAKE CARE OF EVERYBODY, SHE CAN NOT TAKE HER SPOUSE NAGGING HER, AND SHE CAN'T LET GO OF HER GROWN CHILDREN, THINGS ARE BURDENING HER MIND AND IT IS AFFECTING HER HEALTH.
--- NOTE | 2020-10-31 23:49 | PC.NURSE ---
removed nicotine patch at 2100
--- NOTE | 2020-11-01 00:53 | PC.NURSE ---
At 20:50 Trazadone 50 mg PO was given at patients request for sleep. At 20:51 Propranolol 20mg PO was given for anxiety. Also 650mg Tylenol for C/O of left shoulder pain rated at 7/10 on a 1/10 pain scale. At 21:21 pain level was reassessed 3-4/10.
--- NOTE | 2020-11-01 01:43 | PC.NURSE ---
At 21:48 Imodium 2mg PO was given for diarrhea as well as 4mg Zofran for nausiea.
[2020-11-01] MEDS: ibuprofen 600 mg Tablet PO (02:05)
[2020-11-01] MEDS: LORazepam 2 mg Tablet PO ×2 (02:06→20:35)
[2020-11-01] MEDS: loperamide 2 mg Capsule PO (02:06)
--- NOTE | 2020-11-01 03:05 | PC.NURSE ---
At 02:00 patient was at nurses station C/O pain in her left shoulder and anxiety. She has been up and down all night. She has appeared to be very anxious most of the night. She has been having diarrhea since yesterday afternoon. At 02:06 she was given a second dose of 2mg Imodium PO. 600 mg Ibuprofen PO for her left shoulder pain rated 7/10 on 1/10 pain scale. She was also given 2mg Atavan PO for her increasing anxiety. At 0236 her shoulder pain was reassessed. She rated pain to be down to 3/10 on a 0/10 pain scale.
[2020-11-01 05:36] VITALS: BMI 21.6
[2020-11-01 06:00] VITALS: BP 98/67; PULSE 73; RESP 15; TEMP 36.8; O2SAT 96
[2020-11-01] MEDS: fluoxetine 20 mg Capsule PO (08:03)
[2020-11-01] MEDS: nitrofurantoin SR (BID) 100 mg Capsule PO ×2 (08:03→17:28)
[2020-11-01] MEDS: cetirizine 10 mg Tablet PO ×2 (08:03→20:35)
[2020-11-01] MEDS: nicotine 21 mg Patch 1 PATCH TRANSDERMA (09:07)
[2020-11-01 14:00] VITALS: BP 112/77; PULSE 90; RESP 18; TEMP 36.8; O2SAT 97
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
--- NOTE | 2020-11-01 20:46 | PC.NURSE ---
PRN MED PT GIVEN 2MG ATIVAN FOR STATED ANXIETY, O S/S OF ANXIETY, WILL CONTINUE TO MONITOR.
[2020-11-01 21:30] VITALS: BP 122/86; PULSE 94; RESP 17; TEMP 36.8; O2SAT 98
--- NOTE | 2020-11-01 22:23 | PC.NURSE ---
PRN MED PT WITH O S/S OF ANXIETY, WILL CONTINUE TO MONITOR.
[2020-11-01] MEDS: OLANZapine 5 mg ODT PO (22:54)
--- NOTE | 2020-11-01 22:56 | PC.NURSE ---
PRN MED PT GIVEN 5MG ZYPREXA FOR AGITATION/ANXIETY, WILL CONTINUE TO MONITOR.
--- NOTE | 2020-11-02 02:20 | PC.NURSE ---
patch removed nicolás patch removed at 2100 on 11/01/20
--- NOTE | 2020-11-02 02:20 | NUR.SHIFT ---
PM assessment pt upset with dayshift nurses, believes they were going to put something in her back, they discussed it, how to assemble it, and when they were going to do this. pt is confused. pt educated on the scope of practice within the unit. SHe has requested pain medication, anxiety medication, injections, and any med that could help her. She reports constant pain, but throughout the evening she has had several rest periods without any outward s/s of uncontrolled pain. When motrin is offered,patient gets upset, rolls her eyes, and said that is not going to cut it. will continue to observe
[2020-11-02 06:00] VITALS: RESP 15
[2020-11-02] MEDS: cetirizine 10 mg Tablet PO (08:33)
[2020-11-02] MEDS: nitrofurantoin SR (BID) 100 mg Capsule PO (08:33)
[2020-11-02] MEDS: propranolol 20 mg Tablet PO (08:33)
[2020-11-02] MEDS: fluoxetine 20 mg Capsule PO (08:34)
--- NOTE | 2020-11-02 08:35 | PC.NURSE ---
REFUSED SCHEDULED PROTONIX, PT STATED IT MAKES HER BREAK OUT
[2020-11-02] MEDS: LORazepam 1 mg Tablet PO ×2 (09:18→14:12)
[2020-11-02 11:15] VITALS: RESP 15
--- NOTE | 2020-11-02 14:11 | P.DS_ITS ---
Diagnoses at Discharge Discharge Diagnosis (1) Alcohol intoxication: Status: Inactive Qualifiers: Complication of substance-induced condition: uncomplicated Qualified Code(s): F10.920 - Alcohol use, unspecified with intoxication, uncomplicated (2) Anxiety: Status: Inactive (3) Tendonitis of left rotator cuff: Status: Inactive (4) Depression: Status: Acute (5) UTI (urinary tract infection): Status: Acute (6) TMJ arthralgia: Status: Acute (7) Nasal vestibulitis: Status: Acute (8) Chronic sinusitis: Status: Acute (9) Nicotine abuse: Status: Acute (10) Recurrent frontal sinusitis: Status: Acute (11) Hypothyroidism (acquired): Status: Acute (12) CKD (chronic kidney disease) stage 2, GFR 60-89 ml/min: Status: Acute (13) Recurrent UTI: Status: Acute (14) Renal infarct: Status: Acute (15) Alcohol abuse: Status: Acute (16) Transaminitis: Status: Acute (17) Pyelonephritis of right kidney: Status: Acute (18) HTN (hypertension): Status: Acute Reason for Visit Reason for Visit: psych eval Brief History: History of Present Illness Denisa Orourke is a 45 year old female who presented to the emergency department with the following report: Chief Complaint: Psychiatric Symptoms Stated Complaint: psych eval Time Seen by Provider: 10/30/20 16:59 History of Present Illness: HPI Narrative: The patient is a 45-year-old female who comes to the ER complaining of depression and making some passive statements like she wishes she was . She says she has been increasing her alcohol usage and trying to drink more and sometimes she says she has more money why does not she go by another bottle of alcohol so she does not wake up. She has not set up care with psych yet but has visited the ER multiple times. Her says that he has a sick relative to take care of and work and is worried about her leaving her at home that she might try to do something to hurt herself. She has attempted to take pills in the past overdose. She also does admit some mild dysuria. MD complaint: feels depressed Context: recent alcohol abuse Associated psychiatric symptoms: depression Associated symptoms: Reports depression. She was admitted to the neuropsychiatric unit for definitive treatment of those issues. This was her fourth visit to the emergency department in the last couple of weeks and third in the last 4 days days. She is a high utilizer of em ergency room services in general and it is not uncommon for her to have significantly elevated blood alcohol levels. October 25, 2020 she presented with a blood alcohol level of 344. This point reports that she is never been hospitalized psychiatrically, that she is had no psychiatric care or follow-up but does endorse that she was diagnosed with anxiety in [place] and was placed on Paxil and had in fact been on some other medication but had never seen a psychiatric practitioner. She denies suicide attempts except for an overdose of pills in the early . She denies psychiatric hospitalization for that event either. She smokes half a pack of cigarettes a day, reports that she drinks alcohol 2 to 3 days a week which she reports is a decrease that she has been instituting recently but does acknowledge that he does drink on other days it can get out of control if there are things stressing her out, she endorses having used marijuana about 2 times since 2014 or so when she moved to the area and denies any other illicit drug use. She reports that she struggling with stress related to her 82-year-old aunt who lives with her. She reports that since 2007 things been tough with her and her and she started struggling with Alzheimer's. She reports that she is very expected of having a routine and went routine is not maintain she can be really dysfunctional, angry and hard to deal with it. She reports that she is lost 2 jobs secondary to her calling her place of employment and being demanding about talking to her and getting her needs met. She endorses he has had some episodes of drinking related to this. We had a long discussion about this Ativan that is reportedly being used for anxiety and helping her to relax in relation to her incident. We discussed that 6 mg is a daily dose is way too much especially a person who drinks heavily with some regularity. We talked about the importance of assisting her with anxiety and depression with nonhabit-forming agents which will hopefully allow her and her outpatient doctor to use Ativan much less. We discussed the risk benefits and alternatives of starting Prozac and propranolol and she understood and agreed proceed as is documented in his note. Psychiatric history: As above. Substance abuse history: As above. She denies any rehabs or DUIs. Family history: Endorses that there was a significant addiction on her mother side of the family but otherwise denies substance use issues on father side or mental health issues on either side of the family and denies suicide attempts on either side. Developmental history: There were no problems with the , or delivery, learned to walk and talk and met developmental milestones on time, and denies need for speech therapy, learning support, emotional support or special education classes. Psychosocial history: She reports her parents were together possibly at but not much after and her mother had a tubal and had no other children. Her father had 3 or 4 children that are her stepsiblings. She reports her childhood was not too bad but there was emotional abuse, but she denied physical or sexual abuse. She graduated from high school in 1992 and did do some community college. She endorses being a heterosexual with her longest relationship being 11+ years with 11 years being the marriage. She been 2 times and once, she has 3 sons 26-year-old twins and a 20-year-old, she never been in and was raised [employer]. He reports her longest employment was 7 years. She currently lives in a house with her and her aunt. Legal history: She reports that she was in alf for hours 1 time for bad checks. Medical history: She endorses having a history of SVTs. Please see ED notes for additional history. Hospital Course Hospital Course Denisa presented to the emergency department as she had multiple times recently endorsing anxiety depression, active addiction and lethality. She was admitted to the neuropsychiatric unit for definitive treatment of those issues. On the unit she slowly acclimated to the individual, group and milieu therapies provided. She was already on Prozac and Inderal for her symptoms and showed slow but steady improvement. Identified the Ativan that she was leaning on was a very new medication from department and so we also tapered off at discharge. She was instructed safety prior to discharge. During the hospitalization, patient had routine laboratory studies which were within normal limits except for few outliers. Additionally there was a general medical evaluation which was also within normal limits and revealed no new acute processes. Discharge Summary: At the time of discharge, psychosis and lethality were denied. Mood and anxiety were well managed. Patient endorsed a plan to avoid all drugs of abuse and follow-up with the aftercare recommendations of the treatment team. Patient was evaluated and deemed to be absent credible lethality, and had achieved the maximum benefit from an inpatient hospitalization, so was discharged. Involuntary Hold Information 96 Hour Hold: 96 Hour Involuntary Admission: No Mental Status Exam MSE Comments: This is a slender white female looking older than her stated age in hospital scrubs with adequate grooming and eye contact. No abnormal movements except for resolving psychomotor retardation. Some poor quality tattoos on exposed skin. Cooperative with exam in no acute distress. Speech was more normal rate and volume. Mood described as better, affect brighter. Thought process organized. Thought content: Patient denied suicidal or homicidal ideation. There are no delusions reported or noted, she denied any auditory visual hallucinations. Attention and concentration were intact and memory appeared reliable but none were formally tested. She is alert and oriented x3. Insight and judgment are improving and impulse control is limited, but improving. Discharge Data Vitals: Last Vital Signs Temp 98.3 F 11/01/20 21:30 Pulse 94 11/01/20 21:30 Resp 15 11/02/20 11:15 BP 122/86 11/01/20 21:30 Pulse Ox 98 11/01/20 21:30 Discharge Plan Discharge Patient Disposition: Home Condition: Stable Prescriptions: New propranolol 20 mg Tablet 20 mg PO TID 30 Days Qty: 90 RF: 1 fluoxetine 20 mg Capsule 20 mg PO DAILY 30 Days Qty: 30 RF: 1 Continued ondansetron HCl [Zofran] 4 mg tablet 4 mg PO Q6H PRN (Reason: nausea and vomiting) Qty: 20 RF: 0 Xarelto 15 mg tablet 15 mg PO BID RF: 0 esomeprazole magnesium [Nexium] 20 mg Capsule,Delayed Release(Dr/Ec) 20 mg PO BID RF: 0 cetirizine [Zyrtec] 10 mg Tablet 10 mg PO BID RF: 0 multivitamin [Multiple Vitamins] Tablet 1 tab PO DAILY RF: 0 folic acid 400 mcg Tablet 800 mcg PO DAILY RF: 0 acetaminophen [Tylenol Extra Strength] 500 mg Tablet 1,000 mg PO PRN RF: 0 Vitamin B-6 1 tab PO DAILY RF: 0 Discontinued lorazepam [Ativan] 2 mg tablet 2 mg PO Q8H PRN (Reason: anxiety) Qty: 14 RF: 0 Discharge Orders: Discharge Order (Routine); Ordered 11/02/20 Ordered By: Nabil Aguayo Referrals: [facility] [Outside] (If you decide you would like services complete the intake paperwork you have and return to the office. They will then contact you for a phone assessment. Services could include medication management, individual or group therapy, and/or case management.) [facility] [Outside] (Resource for inpatient and outpatient substance abuse services.) Jeni Monsivais MD [Primary Care Provider] - 4-7 days Discharge Diet: Regular Discharge Activity: Resume usual activity Patient Instructions: Generalized Anxiety Disorder Discharge Attestations NPU Time Spent in Discharge Care*: less than 30 min Specific Discharge Activities: Specific discharge activities: educating patient, discussing with residential case manager/social workers/dc planners, documenting/other paperwork and evaluating patient/reviewing data Coding Level of Care Code Acute Bridge Toll Collector for Chg Fwd Diagnoses Alcohol intoxication F10.920 Complication of substance-induced condition: uncomplicated Anxiety F41.9 Tendonitis of left rotator cuff M75.82 Depression F32.9 UTI (urinary tract infection) N39.0 TMJ arthralgia M26.629 Nasal vestibulitis J34.89 Chronic sinusitis J32.9 Nicotine abuse Z72.0 Recurrent frontal sinusitis J01.11 Hypothyroidism (acquired) E03.9 CKD (chronic kidney disease) stage 2, GFR 60-89 ml/min N18.2 Recurrent UTI N39.0 Renal infarct N28.0 Alcohol abuse F10.10 Transaminitis R74.01 Pyelonephritis of right kidney N12 HTN (hypertension) I10
--- NOTE | 2020-11-02 16:49 | PC.RESP ---
Smoking Cessation information sent to patient.
== END 2020-11-02 14:50 | disposition home or self-care (01) | DRG 897 ==
LOC: ER 18:54 → NP 19:06
PROVIDERS: Admitting Provider Psychiatry & Neurology Psychiatry; Emergency Provider Family Medicine; PCP Family Medicine; Visit Provider Psychiatry & Neurology Psychiatry
DX: F10.129 Alcohol abuse with intoxication, unspecified (principal); I47.1 Supraventricular tachycardia; R45.851 Suicidal ideations; N10 Acute pyelonephritis; F32.9 Major depressive disorder, single episode, unspecified; F17.210 Nicotine dependence, cigarettes, uncomplicated; F41.9 Anxiety disorder, unspecified; M54.9 Dorsalgia, unspecified; I12.9 Hypertensive chronic kidney disease with stage 1 through stage 4 chronic kidney disease, or unspecified chronic kidney disease; N18.2 Chronic kidney disease, stage 2 (mild); M79.7 Fibromyalgia; K21.9 Gastro-esophageal reflux disease without esophagitis; E03.9 Hypothyroidism, unspecified; Z86.711 Personal history of pulmonary embolism; Z87.440 Personal history of urinary (tract) infections; M48.02 Spinal stenosis, cervical region; D51.9 Vitamin B12 deficiency anemia, unspecified; E55.9 Vitamin D deficiency, unspecified; M77.8 Other enthesopathies, not elsewhere classified; M26.609 Unspecified temporomandibular joint disorder, unspecified side; Z79.01 Long term (current) use of anticoagulants; J32.1 Chronic frontal sinusitis; J34.89 Other specified disorders of nose and nasal sinuses
CPT/HCPCS: 36415; 80053; 80306; 80307; 81001; 81025; 84443; 85025; 87077; 87086; 87186; 99285; Q0162

== ENCOUNTER 2020-11-20 14:28 | Emergency (ER) | payer SELFPAY ==
[2020-11-20 14:47] VITALS: BP 147/100; PULSE 94; RESP 18; TEMP 37.1; O2SAT 99; BMI 20.7
[2020-11-20 15:39] LABS: Bilirubin Urine 1+ (Negative); Blood Urine 3+ (Negative); Glucose Urine UA Norm (Normal); Ketones Urine 1+ (Negative); Leukocyte Esterase Urine 2+ (Negative); Nitrate Urine Positive (Negative); Protein Urine 2+ (Negative); Sulfosalicylic Acid Urine Positive (Negative); Urine Appearance Cloudy (CLEAR); Urine Color Dark Yellow (Yellow); Urobilinogen Urine 4+ mg/dL (Negative); pH Urine 8 (5-7)
[2020-11-20 15:49] LABS: Bacteria Urine 4+ /hpf; Squamous Epithelial Cell Urine 0-4 /hpf (0-5); WBC Urine 25-40 /hpf (0-5)
[2020-11-20 15:51] LABS: Add Urine Culture? Yes
--- NOTE | 2020-11-20 16:23 | W.ED.FEMALGU ---
HPI - Female Genitourinary General: Chief complaint: Urogenital-Female Stated complaint: LOWER ABD PAIN, HURTS TO URINATE Time Seen by Provider: 11/20/20 16:23 History of Present Illness: HPI Narrative: 45-year-old female patient presents to the emergency department with 2-3 onset of urinary symptoms. She reports urinary pain and urgency/frequency that started 2 to 3 days ago, has completed [id number] AZO treatment, has helped with pain. She reports nausea but no vomiting. She still is complaining of lower pubic pain with urinary discomfort. She denies fever, reports chills. She is drinking water upon exam. MD elicited complaint: dysuria and UTI Onset (ago): day(s) (2-3) Quality of pain: cramping Consistency: constant Vaginal discharge: none Vaginal bleeding: none Urinary symptoms: Foul Smelling Urine, Frequency and Urgency Exacerbating factors: none Relieving factors: none Associated symptoms: Reports fevers/chills and nausea; Deny headache(s) Date of Last Menstrual Period: 07/31/10 Review of Systems General: Reports: 10 or more systems reviewed and unremarkable except in HPI and below Const: Denies: fever(s), chills or diaphoresis Eyes: Denies: blurry vision or eye redness ENMT: Denies: throat pain, dental pain or disequilibrium Card: Denies: chest pain, palpitations or irregular heart rhythm Resp: Denies: dyspnea, productive cough, non-productive cough or wheezing GI: Reports: nausea : Reports: dysuria, urinary frequency and urinary urgency; Denies: flank pain, difficulty voiding, urinary incontinence or irregular period Musc: Denies: neck pain, back pain, joint pain or joint warmth Skin/Breast: Denies: rash or pruritus Neuro: Denies: headache(s), weakness in extremities or behavioral changes Psych: Denies: anxiety or depression Maxime/Lymph: Denies: easy bruising PFSH ED PFSH: Medical History Back pain CKD (chronic kidney disease) stage 2, GFR 60-89 ml/min Dyshidrotic hand dermatitis Fibromyalgia GERD (gastroesophageal reflux disease) Gram-negative bacteremia H/O HTN (hypertension) Hypothyroidism (acquired) Macrocytosis Migraine without aura, not intractable, without status migrainosus Nicotine abuse PSVT (paroxysmal supraventricular tachycardia) Pulmonary emboli Recurrent UTI Renal infarct Spinal stenosis, cervical region Transaminitis Vitamin B12 deficiency anemia Vitamin D deficiency Surgical History H/O colonoscopy 2018 - normal History of hysterectomy with bilateral oophorectomy History of radiofrequency ablation (RFA) procedure for cardiac arrhythmia Hx of appendectomy S/P carpal tunnel release S/P tubal ligation Family History Mother Atrial fibrillation Hypertension Social History Smoking and tobacco status: current every day smoker cigarettes Packs smoked per day: 0.5 Years cigarettes smoked: 30 Alcohol intake: current Alcohol intake frequency: 0-2 Drinks per Day Lives independently: Yes Household members: spouse and family Marital status: service: No Current occupational status: unemployed History of recent travel: No Current gender identity: Female Female Reproductive History: Date of last menstrual period: 07/31/10 Physical Exam Const: COMMON NORMALS: no acute distress, patient oriented x3, healthy appearing, alert and well nourished GENERAL APPEARANCE: cooperative, comfortable, well kempt, well developed and well hydrated NUTRITIONAL APPEARANCE: thin ORIENTATION/CONSCIOUSNESS: Yes awake, Yes oriented to person, Yes oriented to place and Yes oriented to time HENMT: COMMON NORMALS: normocephalic, atraumatic, Normal external nose present and moist oral mucous membranes HEAD & SCALP: normal to inspection, normocephalic and atraumatic FACE & SINUS: normal facial exam and face symmetric NOSE: Normal external nose present Eye: COMMON NORMALS: Equal, round and reactive pupils present and EOMs intact bilaterally GENERAL EYE: appearance normal, both eyes and all related structures PUPIL: Yes Equal, round and reactive pupils present Neck/C-Spine: COMMON NORMALS: full ROM and no lymphadenopathy GENERAL: Yes normal visual inspection and Yes trachea midline CERVICAL SPINE: Yes cervical ROM normal Lymph: LYMPHATIC: no lymphadenopathy noted Chest: COMMONS NORMALS: normal inspection of the chest Resp: COMMON NORMALS: normal respiratory effort, No retractions, No use of accessory muscles and clear to auscultation bilaterally EFFORT & INSPECTION: Yes able to speak in complete sentences AUSCULTATION: clear to auscultation bilaterally Cardio: COMMON NORMALS: regular rate, regular rhythm, S1 normal heart sound present, S2 normal heart sound present and Peripheral pulses 2+ throughout RATE: regular rate RHYTHM: regular rhythm HEART SOUNDS: S1 normal heart sound present and S2 normal heart sound present PERIPHERAL PULSES: Peripheral pulses 2+ throughout GI: COMMON NORMALS: Normal to inspection, nondistended, normoactive bowel sounds present, Soft to palpation and non-tender INSPECTION: Yes normal to inspection PALPATION: Yes Soft to palpation : COMMON NORMALS: Yes no CVA tenderness BLADDER/KIDNEY EXAM: Yes no CVA tenderness Back/Pelvis: COMMON NORMALS: no CVA tenderness and thoracic and lumbar spine normal to inspection Extremity: COMMON NORMALS: normal to inspection, full ROM, capillary refill normal and no pedal edema GENERAL: Yes normal exam except as noted Neuro: COMMON NORMALS: patient oriented x3 and no focal motor deficits SENSORIUM/ORIENTATION: Yes alert, Yes oriented to person, Yes oriented to place and Yes oriented to time Psych: COMMON NORMALS: mental status grossly normal, Normal thought process present and cooperative APPEARANCE: Yes well kempt ACTIVITY/MOTOR BEHAVIOR: Yes appropriate eye contact THOUGHT PROCESS: Normal thought process present Skin: COMMON NORMALS: no rashes or lesions noted, no wounds, turgor normal, no petechiae and no mottling GENERAL SKIN EXAM: no rashes or lesions noted, elasticity normal and turgor normal Course Vital Signs: Vital signs: Vital Signs Temperature 98.7 F 11/20/20 14:47 Pulse Rate 87 11/20/20 16:42 Respiratory Rate 18 11/20/20 16:42 Blood Pressure 147/100 11/20/20 14:47 Pulse Oximetry 98 11/20/20 16:42 MDM - Female Lab Data: Labs: Lab Results 11/20/20 Range/Units 15:00 Urine Color Dark yellow (Yellow) Urine Appearance Cloudy (CLEAR) Urine pH 8 H (5-7) Ur Specific Gravit y 1.010 (1.005-1.030) Urine Protein 2+ H (Negative) Urine Glucose (UA) Norm (Normal) Urine Ketones 1+ H (Negative) Urine Blood 3+ H (Negative) Urine Nitrate Positive H (Negative) Urine Bilirubin 1+ H (Negative) Prot Sulfosalicyli c Acd Positive (Negative) Urine Urobilinogen 4+ H (Negative) mg/dL Ur Leukocyte Rachel ase 2+ H (Negative) Urine RBC 10-15 H (0-2) /hpf Urine WBC 25-40 H (0-5) /hpf Ur Squamous Epith Cells 0-4 H (0-5) /hpf Amorphous Sediment Not Reportable Urine Bacteria 4+ H (NONE) /hpf Discharge Plan Discharge Patient Disposition: Home Clinical Impression: Acute suprapubic pain UTI (urinary tract infection) Qualifiers: Urinary tract infection type: acute cystitis Hematuria presence: with hematuria Qualified Code(s): N30.01 - Acute cystitis with hematuria Condition: Stable Prescriptions: New Zofran 4 mg tablet 4 mg PO Q4H 5 Days Qty: 14 RF: 0 cefdinir 300 mg capsule 300 mg PO BID 10 Days Qty: 20 RF: 0 No Action ondansetron HCl [Zofran] 4 mg tablet 4 mg PO Q6H PRN (Reason: nausea and vomiting) Qty: 20 RF: 0 Xarelto 15 mg tablet 15 mg PO BID RF: 0 esomeprazole magnesium [Nexium] 20 mg Capsule,Delayed Release(Dr/Ec) 20 mg PO BID RF: 0 cetirizine [Zyrtec] 10 mg Tablet 10 mg PO BID RF: 0 multivitamin [Multiple Vitamins] Tablet 1 tab PO DAILY RF: 0 folic acid 400 mcg Tablet 800 mcg PO DAILY RF: 0 acetaminophen [Tylenol Extra Strength] 500 mg Tablet 1,000 mg PO PRN RF: 0 Vitamin B-6 1 tab PO DAILY RF: 0 propranolol 20 mg Tablet 20 mg PO TID 30 Days Qty: 90 RF: 1 fluoxetine 20 mg Capsule 20 mg PO DAILY 30 Days Qty: 30 RF: 1 Discharge Orders: Discharge ED (Routine); Ordered 11/20/20 Ordered By: Denisa Guerra Referrals: Jeni Monsivais MD [Primary Care Provider] - Discharge Diet: Usual diet Discharge Activity: Resume usual activity Patient Instructions: Urinary Tract Infection in Women (ED), Abdominal Pain (ED), Opioid Safety Activity Restrictions/Additional Instructions: Drink plenty of fluids Return to the emergency department if you develop vomiting despite use of Zofran May take Tylenol as needed for pain Take antibiotics until all gone, even if better Follow-up with your primary care physician in 7 days to ensure you are improving, if you are not better by Monday, see your doctor for repeat urine sample Coding Level of Care Code ED Outside Barrel Lathe Operator for Chg Fwd 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
[2020-11-20] MEDS: cefTRIAXone 1,000 MG in lidocaine 1% 2.1 ML 1 MG IM (16:31)
[2020-11-20] MEDS: ondansetron 4 MG Tablet PO (16:31)
[2020-11-20 16:42] VITALS: PULSE 87; RESP 18; O2SAT 98
== END 2020-11-20 16:42 | disposition home or self-care (01) ==
PROVIDERS: Emergency Provider Nurse Practitioner Family; PCP Family Medicine
DX: N30.01 Acute cystitis with hematuria (principal); I12.9 Hypertensive chronic kidney disease with stage 1 through stage 4 chronic kidney disease, or unspecified chronic kidney disease; N18.2 Chronic kidney disease, stage 2 (mild); Z87.440 Personal history of urinary (tract) infections; F17.210 Nicotine dependence, cigarettes, uncomplicated
CPT/HCPCS: 81001; 87077; 87086; 87186; 96372; 99283; J0696; Q0162

== ENCOUNTER 2020-12-08 21:10 | Inpatient (IN) | payer SELFPAY ==
[2020-12-08 21:10] VITALS: BP 122/87; PULSE 88; RESP 18; TEMP 36.6; O2SAT 99; BMI 21.6
--- NOTE | 2020-12-08 21:26 | W.ED.PSYCH ---
HPI - Psych General: Chief Complaint: Psychiatric Symptoms Stated Complaint: MHE - THOUGHTS OF SELF HARM Time Seen by Provider: 12/08/20 21:12 Source: patient Mode of arrival: ambulatory Limitations: no limitations History of Present Illness: HPI Narrative: 45-year-old female history of chronic alcoholism along with depression. She states she had increased stress of the last 3 days and has been having suicidal thoughts. She states 2 days ago she took Valium and was drinking in an attempt to kill herself. Patient denies any worsening or improving factors. Patient was last admitted roughly 2 months ago to the psychiatric tai. complaint: suicidal ideation Associated symptoms: Reports depression and suicidal ideation Review of Systems Const: Denies: fever(s), chills, body aches or change in appetite Eyes: Denies: blurry vision or eye discomfort ENMT: Denies: throat pain or dental pain Card: Denies: chest pain Resp: Denies: dyspnea GI: Denies: abdominal pain, nausea, vomiting or diarrhea : Denies: dysuria Musc: Denies: neck pain or back pain Skin/Breast: Denies: rash Neuro: Denies: headache(s) Psych: Reports: depression and suicidal ideation Maxime/Lymph: Denies: easy bruising All/Imm: Denies: urticaria PFSH ED PFSH: Medical History Back pain CKD (chronic kidney disease) stage 2, GFR 60-89 ml/min Dyshidrotic hand dermatitis Fibromyalgia GERD (gastroesophageal reflux disease) Gram-negative bacteremia H/O HTN (hypertension) Hypothyroidism (acquired) Macrocytosis Migraine without aura, not intractable, without status migrainosus Nicotine abuse PSVT (paroxysmal supraventricular tachycardia) Pulmonary emboli Recurrent UTI Renal infarct Spinal stenosis, cervical region Transaminitis Vitamin B12 deficiency anemia Vitamin D deficiency Surgical History H/O colonoscopy 2018 - normal History of hysterectomy with bilateral oophorectomy History of radiofrequency ablation (RFA) procedure for cardiac arrhythmia Hx of appendectomy S/P carpal tunnel release S/P tubal ligation Family History Mother Atrial fibrillation Hypertension Social History Smoking and tobacco status: current every day smoker cigarettes Packs smoked per day: 0.5 Years cigarettes smoked: 30 Alcohol intake: current Alcohol intake frequency: 0-2 Drinks per Day Lives independently: Yes Household members: spouse and family Marital status: service: No Current occupational status: unemployed History of recent travel: No Current gender identity: Female Female Reproductive History: Date of last menstrual period: 07/31/10 Physical Exam Const: COMMON NORMALS: no acute distress, patient oriented x3 and healthy appearing HENMT: COMMON NORMALS: normocephalic and atraumatic HEAD & SCALP: normocephalic and atraumatic Eye: COMMON NORMALS: Equal, round and reactive pupils present and EOMs intact bilaterally PUPIL: Yes Equal, round and reactive pupils present Neck/C-Spine: COMMON NORMALS: full ROM and supple Chest: COMMONS NORMALS: normal inspection of the chest and normal palpation of entire chest wall Resp: COMMON NORMALS: normal respiratory effort, No retractions, No use of accessory muscles and clear to auscultation bilaterally AUSCULTATION: clear to auscultation bilaterally Cardio: COMMON NORMALS: regular rate, regular rhythm and No murmurs present (Cardio) RATE: regular rate RHYTHM: regular rhythm GI: COMMON NORMALS: Normal to inspection, nondistended, normoactive bowel sounds present, Soft to palpation, non-tender and no masses PALPATION: Yes Soft to palpation Extremity: COMMON NORMALS: normal to inspection and full ROM Neuro: COMMON NORMALS: patient oriented x3, moves all extremities and no focal motor deficits Psych: COMMON NORMALS: mental status grossly normal and cooperative THOUGHT CONTENT: Yes Suicidality present Skin: COMMON NORMALS: no rashes or lesions noted and no wounds GENERAL SKIN EXAM: no rashes or lesions noted Course Vital Signs: Vital signs: Vital Signs Temperature 97.8 F 12/08/20 21:10 Pulse Rate 88 12/08/20 21:10 Respiratory Rate 18 12/08/20 21:10 Blood Pressure 122/87 12/08/20 21:10 Pulse Oximetry 99 12/08/20 21:10 MDM - Psych MDM Narrative: Medical decision making narrative: Patient presents here with suicidal ideations along with alcohol intoxication. Patient voluntarily wants to get help. She is well-appearing here is medically cleared and will admit to the psychiatric unit. Lab Data: Labs: Lab Results 12/08/20 12/08/20 Range/Units 21:29 21:29 WBC 4.6 (4.0-10.0) 10^3/ uL RBC 3.11 L (4.1-5.3) 10^6/u L Hgb 12.5 (11.5-15.3) g/dL Hct 36.0 L (37.0-47.0) % MCV 115.8 H (81-99) fL MCH 40.2 H (28.0-34.0) pg MCHC 34.7 (30.0-36.0) g/dL RDW 15.7 H (12.1-15.1) % Plt Count 170 (130-400) 10^3/c mm MPV 9.5 (7.4-10.4) fL Neut % (Auto) 38.6 % Lymph % (Auto) 50.9 % [place] % (Auto) 5.9 % Eos % (Auto) 2.6 % Baso % (Auto) 1.3 % Neut # (Auto) 1.78 L (1.8-7.7) 10^3/u L Lymph # (Auto) 2.3 (0.8-4.8) 10^3/u L [place] # (Auto) 0.3 (0.2-0.9) 10^3/u L Eos # (Auto) 0.1 (0.0-0.8) 10^3/u L Baso # (Auto) 0.1 (0.0-0.1) 10^3/u L Nucleated RBC % (a uto) 0.4 % Nucleated RBCs # 0.0 /100WBC Sodium 141 (136-145) mmol/L Potassium 3.5 (3.5-5.1) mmol/L Chloride 100 (98-107) mmol/L Carbon Dioxide 24 (22-29) mmol/L Anion Gap 20.5 H (5-19) BUN 6 (6-20) mg/dL Creatinine 0.6 (0.5-0.9) mg/dL GFR Calculation 107.6 (90-130) mL/min Glucose 93 (65-115) mg/dL Calculated Osmolal ity 289 (285-295) mOsm/k g Calcium 8.6 (8.5-10.5) mg/dL Total Bilirubin 0.5 (0.15-1.2) mg/dL AST 73 H (0-32) U/L ALT 33 (0-33) U/L Alkaline Phosphata se 123 H (35-105) IU/L Total Protein 7.3 (6.6-8.7) g/dL Albumin 4.2 (3.5-5.2) g/dL Globulin 3.1 (1.3-4.6) g/dL Salicylates < 0.3 L (3-10) mg/dL Acetaminophen < 5.0 L (10-30) ug/mL Ethyl Alcohol 204 H (0-10) mg/dL Discharge Plan Discharge Patient Disposition: Admitted As Inpatient Clinical Impression: Suicidal ideation, Alcohol intoxication Condition: Stable Coding Level of Care Code ED Recreational Facilities Motel Manager for Apryl Salas 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
[2020-12-08 21:34] LABS: Basophils # 0.1 10^3/uL (0.0-0.1); Basophils % 1.3 %; Eosinophils # 0.1 10^3/uL (0.0-0.8); Eosinophils % 2.6 %; Hemoglobin 12.5 g/dL (11.5-15.3); Lymphocytes # 2.3 10^3/uL (0.8-4.8); Lymphocytes % 50.9 %; Mean Corpuscular HGB Conc 34.7 g/dL (30.0-36.0); Mean Corpuscular Hemoglobin 40.2 pg (28.0-34.0); Mean Corpuscular Volume 115.8 fL (81-99); Mean Platelet Volume 9.5 fL (7.4-10.4); Monocytes # 0.3 10^3/uL (0.2-0.9); Monocytes % 5.9 %; Neutrophils # 1.78 10^3/uL (1.8-7.7); Neutrophils % 38.6 %; Nucleated Red Blood Cells % 0.4 %; Platelet Count 170 10^3/cmm (130-400); Red Blood Count 3.11 10^6/uL (4.1-5.3); Red Cell Distribution Width 15.7 % (12.1-15.1); White Blood Count 4.6 10^3/uL (4.0-10.0)
[2020-12-08 21:57] LABS: Alanine Aminotransferase 33 U/L (0-33); Albumin Level 4.2 g/dL (3.5-5.2); Alcohol Level 204 mg/dL (0-10); Alkaline Phosphatase 123 IU/L (35-105); Anion Gap 20.5 (5-19); Aspartate Amino Transferase 73 U/L (0-32); Blood Urea Nitrogen 6 mg/dL (6-20); Calcium 8.6 mg/dL (8.5-10.5); Carbon Dioxide 24 mmol/L (22-29); Chloride 100 mmol/L (98-107); Globulin 3.1 g/dL (1.3-4.6); Glomerular Filtration Rate 107.6 mL/min (90-130); Glucose 93 mg/dL (65-115); Osmolality Calculated 289 mOsm/kg (285-295); Potassium 3.5 mmol/L (3.5-5.1); Sodium 141 mmol/L (136-145); Total Bilirubin 0.5 mg/dL (0.15-1.2); Total Protein 7.3 g/dL (6.6-8.7)
[2020-12-08 21:58] LABS: Salicylate < 0.3 mg/dL (3-10)
[2020-12-08 21:59] LABS: Acetaminophen < 5.0 ug/mL (10-30)
[2020-12-08 22:42] LABS: Amphetamines Screen Urine Negative (Negative); Barbiturates Screen Urine Negative (Negative); Benzodiazepines Screen Urine Positive (Negative); Cocaine Screen Urine Negative (Negative); Opiate Screen Urine Negative (Negative); PCP Screen Urine Negative (Negative); THC Screen Urine Negative (Negative)
[2020-12-08] MEDS: ondansetron 4 MG Tablet PO (22:42)
--- NOTE | 2020-12-08 23:10 | PC.NURSE ---
pt states she has court on 12/09/20 at 1300 and would like to check out. [place]
[2020-12-08 23:44] VITALS: BP 115/87; PULSE 76; RESP 18; TEMP 36.8; O2SAT 98
[2020-12-08 23:53] VITALS: BP 122/87; PULSE 88; RESP 20; O2SAT 99
--- NOTE | 2020-12-09 01:21 | PC.NURSE ---
PM Assessment 45/F hx of chronic alcoholism along with depression. Pt reports waves of nausea, she received 45mg Zofran in the ED, prior to admission. She states she had increased stress of the last 3 days and has been having suicidal thoughts. Pt states, I'm overwhelmed by life. 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 She states 2 days ago she took Valium and was drinking in an attempt to kill herself. Last admission to [facility] was 10/30/20. Pt reports having sepsis from a bladder infection recently, comes to [facility] with UTI, pt reports just finishing a prescription of Cednifir antibiotics, still reporting burning with urination and a few episodes of utgency resulting in incontinence. Pt reports hip pain at a 6, on 1-10 pain scale, asked nurse for Valium. Physician notified, orders for motrin received. Med nurse notified. Pt denies HI/SI at this time, contracts for safety, denies AH/VH. Will continue to observe.
[2020-12-09] MEDS: ibuprofen 800 mg tablet PO (02:16)
[2020-12-09 06:00] VITALS: BP 112/74; PULSE 77; RESP 16; TEMP 37; O2SAT 97
[2020-12-09] MEDS: multivitamin therapeutic Tablet 1 TAB PO (08:01)
[2020-12-09] MEDS: thiamine 100 mg Tablet PO (08:01)
[2020-12-09] MEDS: folic acid 1 mg Tablet PO (08:01)
[2020-12-09] MEDS: OLANZapine 5 mg ODT PO ×2 (08:01→20:01)
--- NOTE | 2020-12-09 08:10 | PC.NURSE ---
Addendum entered by Jada Villalta LPN 12/09/20 09:40: prn med effective no further c/o anxiety/agitation. Original Note: PRN ZYPREXA ZYDIS 5 MG GIVEN PO PER PT C/O STATED ANXIETY/AGITATION. PT PARANOID, THINKING STAFF WERE TALKING ABOUT HER. STAFF EDUCATED PT THAT WE WERE NOT TALKING ABOUT HER. PT REDIRECTED TO HER ROOM. WILL CONT TO MONITOR.
[2020-12-09] MEDS: ibuprofen 600 mg Tablet PO ×2 (09:05→19:53)
--- NOTE | 2020-12-09 10:21 | PM.NHP ---
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 Patient recently hospitalized about a month ago under similar circumstances with alcohol intoxication and suicidal ideation. Patient states that she was having difficulty getting into substance treatment but because of no insurance. She is currently denying any withdrawal symptoms but states that she feels lousy, difficulty with sleep, decreased appetite, feels somewhat nauseated She continues to report intermittent mood and anxiety symptoms in the context of ongoing alcohol use as well as passive suicidal ideation. Patient states that she has been trying to cut back but is not able to and is been drinking 1 to 2 pints of liquor daily. She currently denies any suicidal ideation but reports intermittent mood symptoms. Review of Systems General: Reports: 10 or more systems reviewed and unremarkable except in HPI and below Meds NPU Home Medications Medication Instructions Recorded Confirmed Last Taken Type cetirizine [Zyrtec] 10 mg PO BID 01/04/20 12/09/20 12/09/20 History folic acid 800 mcg PO DAILY 05/31/20 12/09/20 12/09/20 History ondansetron HCl [Zofran] 4 mg PO Q6H PRN #20 tab 10/09/20 12/09/20 12/09/20 Rx esomeprazole magnesium [Nexium] 20 mg PO BID 10/27/20 12/09/20 12/09/20 History fluoxetine 20 mg PO DAILY 30 Days #30 cap 11/02/20 12/09/20 11/28/20 Rx propranolol 20 mg PO TID 30 Days #90 tab 11/02/20 12/09/20 11/28/20 Rx Allergies Allergy/AdvReac Type Severity Reaction Status Date / Time Sulfa (Sulfonamide Allergy Intermediate ALGY-Rash Verified 10/25/20 16:18 Antibiotics) methocarbamol [From Robaxin] Allergy Mild ADR-Itching Verified 10/25/20 16:18 acetaminophen [From Percocet] Allergy ALGY-Swell Verified 10/25/20 16:18 Lip/Tongue/Throat amoxicillin [From Augmentin] Allergy swelling Verified 10/25/20 16:18 azithromycin [From Zithromax] Allergy ADR-Itching Verified 10/25/20 16:18 ciprofloxacin [From Cipro] Allergy ALGY-Rash Verified 10/25/20 16:18 clavulanic acid Allergy swelling Verified 10/25/20 16:18 [From Augmentin] clindamycin [From Cleocin] Allergy ALGY-Rash Verified 10/25/20 16:18 codeine Allergy ADR-Itching Verified 10/25/20 16:18 cyclobenzaprine Allergy ADR-Swelling Verified 10/25/20 16:18 [From Flexeril] of the Eye diphenhydramine Allergy ALGY-Swell Verified 10/14/20 14:54 [From Benadryl] Lip/Tongue/Throat Egg Derived Allergy ADR-Vomitin Verified 08/21/20 10:46 g hydrocodone Allergy ALGY-Swell Verified 08/21/20 10:46 Lip/Tongue/Throat hydroxyzine Allergy ALGY-Hives Verified 10/27/20 14:22 loratadine [From Claritin] Allergy Unknown Verified 08/21/20 10:46 oxycodone [From Percocet] Allergy ALGY-Swell Verified 08/21/20 10:46 Lip/Tongue/Throat tizanidine Allergy ADR-Itching Verified 08/21/20 10:46 tramadol Allergy ALGY-Rash Verified 08/21/20 10:46 PFSH [facility] PFSH: Medical History Back pain CKD (chronic kidney disease) stage 2, GFR 60-89 ml/min Dyshidrotic hand dermatitis Fibromyalgia GERD (gastroesophageal reflux disease) Gram-negative bacteremia H/O HTN (hypertension) Hypothyroidism (acquired) Macrocytosis Migraine without aura, not intractable, without status migrainosus Nicotine abuse PSVT (paroxysmal supraventricular tachycardia) Pulmonary emboli Recurrent UTI Renal infarct Spinal stenosis, cervical region Transaminitis Vitamin B12 deficiency anemia Vitamin D deficiency Surgical History H/O colonoscopy 2018 - normal History of hysterectomy with bilateral oophorectomy History of radiofrequency ablation (RFA) procedure for cardiac arrhythmia Hx of appendectomy S/P carpal tunnel release S/P tubal ligation Family History Mother Atrial fibrillation Hypertension Social History Smoking and tobacco status: current every day smoker cigarettes Packs smoked per day: 0.5 Years cigarettes smoked: 30 Alcohol intake: current Alcohol intake frequency: 0-2 Drinks per Day Lives independently: Yes Household members: spouse and family Marital status: service: No Current occupational status: unemployed History of recent travel: No Current gender identity: Female Other Psychiatric History: Other Psychiatric History: She denies any interval history changes since last admission H&P by Dr. Aguayo 10/31/2020 Mental Status Exam MSE Comments: Appears older than stated age, appropriately groomed and dressed wearing hospital scrubs, calm, cooperative, quiet, fair eye contact Psychomotor activity is somewhat decreased, no agitation Speech is low volume, normal rate, spontaneous, clear articulation, not pressured I feel lousy, congruent affect, not labile Alert and oriented to person, place, time, situation Intellectual functioning appears to be average based on vocabulary, interview Memory and concentration appear to be intact per interview Thought process, linear Thought content, no delusions, no hallucinations, no suicidal or homicidal ideation Insight and judgment appear to be fair Vitals/I&O/Wt Last Vital Signs Temp 98.6 F 12/09/20 06:00 Pulse 77 12/09/20 06:00 Resp 16 12/09/20 06:00 BP 112/74 12/09/20 06:00 Pulse Ox 97 12/09/20 06:00 Weight last 48 hrs Weight 64.41 kg Data N[facility] : 12/08/20 21:29 12/08/20 21:29 A&P Assessment and plan (1) Suicidal ideation: Status: Acute (2) Alcohol intoxication: Status: Acute Qualifiers: Complication of substance-induced condition: uncomplicated Qualified Code(s): F10.920 - Alcohol use, unspecified with intoxication, uncomplicated (3) Depression: Status: Acute Qualifiers: Depression Type: unspecified Qualified Code(s): F32.9 - Major depressive disorder, single episode, unspecified Additional A&P Information Patient reporting passive suicidal ideation in the context of alcohol intoxication, currently denying any suicidal ideation but reports intermittent mood and anxiety symptoms in the context of multiple stressors. Patient states that she would like to do post discharge substance treatment. VOLUNTARY ADMIT to inpatient psychiatry START [facility]WA Continue to monitor Encouraged patient to participate in unit activities to include group sessions, unit milieu Coordinate with aids social worker for post discharge substance counseling/treatment Involuntary Hold Information 96 Hour Hold: 96 Hour Involuntary Admission: No Attestations [facility] Medical Necessity Statement*: Psychiatric hospitalization is indicated for stabilization, coordination for safe discharge Anticipate hospital stay to exceed 2 midnights Time Spent in Patient Care: Greater than 35 minutes (>than 50% of time spent in counselling and/or direct pt care on unit). Coding Level of Care Code Acute Residential Treatment Counselor for Apryl Salas Diagnoses Suicidal ideation R45.851 Alcohol intoxication F10.920 Complication of substance-induced condition: uncomplicated Depression F32.9 Depression Type: unspecified
[2020-12-09 14:00] VITALS: BP 107/79; PULSE 72; RESP 18; TEMP 36.9; O2SAT 99
--- NOTE | 2020-12-09 18:55 | PC.RESP ---
Smoker Cessation information sent to patient.
[2020-12-09] MEDS: trazodone 50 mg Tablet PO (20:02)
--- NOTE | 2020-12-09 20:38 | PC.NURSE ---
The patient reported feeling restless, irritable, agitated. She requested Vistaril and the other med I had last night. Vistaril 50 mg po and Zyprexa 5 mg po given.
[2020-12-09 21:20] VITALS: BP 123/86; PULSE 77; RESP 16; TEMP 36.4
--- NOTE | 2020-12-09 22:13 | PC.NURSE ---
UTI/Hospitalist consult Poss UTI, pt reports pain, urgency, burning, bilateral flank pain, nausea-intermittent, recent incontinence. Prior to [facility] admission, pt states, I had a picc line in my arm for 12 days for antibiotic therapy for a bladder infection that became septic. This did not clear the UTI up, so I just finished a prescription of Cednifer that was for another 7-10 days. I still have symptoms. Pt lays in her bed, says she does not feel well.
--- NOTE | 2020-12-09 22:54 | PC.NURSE ---
Resting in bed. Pain managed.
[2020-12-09 23:13] LABS: Bilirubin Urine 1+ (Negative); Blood Urine Neg (Negative); Glucose Urine UA Norm (Normal); Ketones Urine Negative (Negative); Leukocyte Esterase Urine Trace (Negative); Nitrate Urine Negative (Negative); Protein Urine Neg (Negative); Specific Gravity, Urine 1.025 (1.005-1.030); Urine Appearance Hazy (CLEAR); Urine Color Yellow (Yellow); Urobilinogen Urine 4 mg/dL (Negative); pH Urine 5 (5-7)
[2020-12-09 23:14] LABS: Add Urine Culture? No; Bacteria Urine 1+ /hpf; RBC Urine 0-4 /hpf (0-2)
[2020-12-09 23:14] LABS: Basophils % 0.6 %; Eosinophils # 0.1 10^3/uL (0.0-0.8); Eosinophils % 1.6 %; Hematocrit 28.2 % (37.0-47.0); Hemoglobin 9.8 g/dL (11.5-15.3); Lymphocytes # 1.1 10^3/uL (0.8-4.8); Lymphocytes % 35.2 %; Mean Corpuscular HGB Conc 34.8 g/dL (30.0-36.0); Mean Corpuscular Hemoglobin 40.5 pg (28.0-34.0); Mean Corpuscular Volume 116.5 fL (81-99); Mean Platelet Volume 10.1 fL (7.4-10.4); Monocytes # 0.2 10^3/uL (0.2-0.9); Monocytes % 7.4 %; Neutrophils % 54.9 %; Nucleated Red Blood Cells % 0.6 %; Platelet Count 122 10^3/cmm (130-400); Red Blood Count 2.42 10^6/uL (4.1-5.3); Red Cell Distribution Width 15.5 % (12.1-15.1); White Blood Count 3.1 10^3/uL (4.0-10.0)
[2020-12-09 23:20] LABS: Blood Urea Nitrogen 7 mg/dL (6-20); Calcium 8.6 mg/dL (8.5-10.5); Carbon Dioxide 25 mmol/L (22-29); Chloride 101 mmol/L (98-107); Free T4 Free Thyroxine 0.93 ng/dL (0.82-1.77); Glomerular Filtration Rate 132.8 mL/min (90-130); Glucose 104 mg/dL (65-115); Osmolality Calculated 278 mOsm/kg (285-295); Sodium 135 mmol/L (136-145); Thyroid Stimulating Hormone 4.96 uIU/mL (0.27-4.20)
[2020-12-09 23:22] LABS: Alcohol Level < 10 mg/dL (0-10); Anion Gap 12.4 (5-19); Potassium 3.4 mmol/L (3.5-5.1)
[2020-12-10] MEDS: trazodone 50 mg Tablet PO ×3 (01:43→22:36)
--- NOTE | 2020-12-10 01:53 | PC.NURSE ---
Trazodone 50 mg po given for complaint of insomnia.
--- NOTE | 2020-12-10 02:28 | PC.NURSE ---
Addendum entered by Natalia Guerra RN 12/10/20 02:40: Pt has not seen hospitalist, been examined by MD for UTI, or received any antibiotics since admission to hospital. Recent bladder infection that became septic, 14 days of IV antibiotics via picc line prior to admission, 2nd round of antibiotics prior to admission completed, pt still symptomatic, laying around, reports pain. Original Note: hospitalist consult attempted 1st attempt, 12/09/20 @9049 used [employer] to contact hospitalist, Dr Masha Mahajan, at request of Dr. Khadijah Davidson. Pt showing signs of UTI, UA ordered, results are abnormal. Dr Mahajan texted, I will see pt in an hour. Physician has not examined patient. 2nd attempt, 12/10/20@ 1996 used [employer] to contact, patient requested to see Physician, and to update on new lab results/urine. Gave the following results to physician via messaging, UA abnormal result, change noted in GFR, TSH is high, WBC 3.1, RBC is 2.42, abd Hgb declined to 9.8, lab values were obtained 12/09/20 @1242 Physician response, Will see her in a bit, I have 9 admits, she got antibiotics already, She can wait a little.
--- NOTE | 2020-12-10 04:25 | PM.CONSULT ---
Providers/Reason For Consult Consulting Physican/Specialty*: Hospitalist service Reason for Consult*: Recurrent UTI management Attending Physician: Khadijah Davidson DO Primary Care Provider: Jeni Monsivais MD History of Present Illness History of Present Illness Denisa Orourke is a 45 year old female with history of multiple comorbid conditions, including alcohol dependence, recurrent UTIs, last year was diagnosed with sepsis secondary to pyelonephritis, finished 12 days of IV antibiotics via PICC line in July and recently finished a course of PO cefdinir follows up with Dr. Kiser,was started on Augmentin for chronic suppressive therapy however stopped taking it because of allergic reaction currently admitted in neuropsychiatric unit for suicidal ideation, hospitalist services consulted for management of her recurrent UTIs. Patient is stating that she just finished cefdinir and methenamine course 3 days ago but she is still experiencing urinary frequency, burning, she experienced 1 episode of emesis today, no fever, chest pain, abdominal pain or current nausea or vomiting. She is also endorsing lower back pain which is more radiating towards right flank area, she is denying fever, chills, rigors. CBC reveals chronic leukopenia, anemia hemoglobin 9.8, mild thrombocytopenia which correlates with her alcohol dependence, hypokalemia noted on BMP, creatinine 0.5 TSH 4.9 free T4 within normal range UA shows hazy appearance of urine however trace leukocyte esterase without significant pyuria however sample showing contamination as well, 1+ bacteria, nitrate negative Previous microbiology revealed urine culture positive for Proteus and E. coli both are sensitive to Levaquin which I would use for now patient is endorsing that in the past to use ciprofloxacin and probably developed a rash but she is not sure as she has more than 10 drug listed in her allergy list, she is denying any anaphylactic reaction to this class of medication Review of Systems Const: Reports: chills, body aches and fatigue; Denies: fever(s) Eyes: Denies: change in vision ENMT: Denies: throat pain Card: Denies: chest pain Resp: Denies: dyspnea GI: Reports: nausea; Denies: abdominal pain, vomiting, early satiety, diarrhea or constipation : Reports: flank pain, dysuria and urinary urgency Musc: Denies: neck pain Skin/Breast: Denies: rash Neuro: Denies: headache(s) Psych: Reports: anxiety and depression Endo: Denies: polyuria Maxime/Lymph: Denies: easy bruising All/Imm: Denies: urticaria Meds/Allergies Home Medications and Allergies Home Medications Medication Instructions Recorded Confirmed Last Taken Type cetirizine [Zyrtec] 10 mg PO BID 01/04/20 12/09/20 12/09/20 History folic acid 800 mcg PO DAILY 05/31/20 12/09/20 12/09/20 History ondansetron HCl [Zofran] 4 mg PO Q6H PRN #20 tab 10/09/20 12/09/20 12/09/20 Rx esomeprazole magnesium [Nexium] 20 mg PO BID 10/27/20 12/09/20 12/09/20 History fluoxetine 20 mg PO DAILY 30 Days #30 cap 11/02/20 12/09/20 11/28/20 Rx propranolol 20 mg PO TID 30 Days #90 tab 11/02/20 12/09/20 11/28/20 Rx Allergies Allergy/AdvReac Type Severity Reaction Status Date / Time Sulfa (Sulfonamide Allergy Intermediate ALGY-Rash Verified 10/25/20 16:18 Antibiotics) methocarbamol [From Robaxin] Allergy Mild ADR-Itching Verified 10/25/20 16:18 acetaminophen [From Percocet] Allergy ALGY-Swell Verified 10/25/20 16:18 Lip/Tongue/Throat amoxicillin [From Augmentin] Allergy swelling Verified 10/25/20 16:18 azithromycin [From Zithromax] Allergy ADR-Itching Verified 10/25/20 16:18 clavulanic acid Allergy swelling Verified 12/09/20 23:07 [From Augmentin] clindamycin [From Cleocin] Allergy ALGY-Rash Verified 10/25/20 16:18 codeine Allergy ADR-Itching Verified 10/25/20 16:18 cyclobenzaprine Allergy ADR-Swelling Verified 10/25/20 16:18 [From Flexeril] of the Eye Egg Derived Allergy ADR-Vomitin Verified 08/21/20 10:46 g hydrocodone Allergy ALGY-Swell Verified 08/21/20 10:46 Lip/Tongue/Throat hydroxyzine Allergy ALGY-Hives Verified 10/27/20 14:22 loratadine [From Claritin] Allergy Unknown Verified 08/21/20 10:46 oxycodone [From Percocet] Allergy ALGY-Swell Verified 08/21/20 10:46 Lip/Tongue/Throat tizanidine Allergy ADR-Itching Verified 08/21/20 10:46 tramadol Allergy ALGY-Rash Verified 08/21/20 10:46 Current Medications Current Medications Generic Name Dose Route Start Last Admin Trade Name Freq PRN Reason Stop Dose Admin Folic Acid 1 mg 12/09/20 09:00 12/09/20 08:01 Folic Acid 1 Mg Tablet PO 1 mg DAILY VALERIE Administration Ibuprofen 600 mg 12/09/20 09:00 12/09/20 19:53 Ibuprofen 600 Mg Tablet PO 600 mg Q6H PRN Administration MODERATE PAIN Multivitamins Therapeutic 1 tab 12/09/20 09:00 12/09/20 08:01 Multivitamin Therapeutic Tablet PO 1 tab DAILY VALERIE Administration Olanzapine 5 mg 12/08/20 23:47 12/09/20 20:01 Olanzapine 5 Mg Odt PO 5 mg Q4H PRN Administration Agitation/Psychosis Thiamine Mononitrate 100 mg 12/09/20 09:00 12/09/20 08:01 Thiamine 100 Mg Tablet PO 100 mg DAILY VALERIE Administration PFSH Acute PFSH: Medical History Back pain CKD (chronic kidney disease) stage 2, GFR 60-89 ml/min Dyshidrotic hand dermatitis Fibromyalgia GERD (gastroesophageal reflux disease) Gram-negative bacteremia H/O HTN (hypertension) Hypothyroidism (acquired) Macrocytosis Migraine without aura, not intractable, without status migrainosus Nicotine abuse PSVT (paroxysmal supraventricular tachycardia) Pulmonary emboli Recurrent UTI Renal infarct Spinal stenosis, cervical region Transaminitis Vitamin B12 deficiency anemia Vitamin D deficiency Surgical History H/O colonoscopy 2018 - normal History of hysterectomy with bilateral oophorectomy History of radiofrequency ablation (RFA) procedure for cardiac arrhythmia Hx of appendectomy S/P carpal tunnel release S/P tubal ligation Family History Mother Atrial fibrillation Hypertension Social History Smoking and tobacco status: current every day smoker cigarettes Packs smoked per day: 0.5 Years cigarettes smoked: 30 Alcohol intake: current Alcohol intake frequency: 0-2 Drinks per Day Lives independently: Yes Household members: spouse and family Marital status: service: No Current occupational status: unemployed History of recent travel: No Current gender identity: Female Female Reproductive History: Date of last menstrual period: 07/31/10 Vitals/I&O/Wt Last Vital Signs Temp 97.6 F 12/09/20 21:20 Pulse 77 12/09/20 21:20 Resp 16 12/09/20 21:20 BP 123/86 12/09/20 21:20 Pulse Ox 99 12/09/20 14:00 Weight last 48 hrs Weight 64.41 kg Physical Exam Narrative: EXAM NARRATIVE: 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 She was sleeping when we entered the room On awakening she was able to mention above HPI Pleasant and cooperative during my evaluation Right-sided CVA tenderness noted Mild abdominal tenderness on deep palpation of right lower quadrant area S1, S2 sinus rhythm no murmur appreciated Bilateral lower extremity no edema Looks mildly dehydrated and malnourished Sarcopenia EOMI, PERRLA Cooperative and pleasant during my evaluation A&P Assessment and plan (1) Suicidal ideation: Status: Acute (2) Alcohol intoxication: Status: Acute Qualifiers: Complication of substance-induced condition: uncomplicated Qualified Code(s): F10.920 - Alcohol use, unspecified with intoxication, uncomplicated (3) Depression: Status: Acute Qualifiers: Depression Type: unspecified Qualified Code(s): F32.9 - Major depressive disorder, single episode, unspecified (4) UTI (urinary tract infection): Status: Acute Qualifiers: Hematuria presence: with hematuria Urinary tract infection type: acute cystitis Qualified Code(s): N30.01 - Acute cystitis with hematuria Additional A&P Information Recurrent UTIs Leukopenia without fever or signs of sepsis Patient not endorsing rigors However she has symptoms of UTI with urinary frequency and dysuria Previous urine culture positive for Proteus and E. coli sensitive to Levaquin, I would go ahead and start Levaquin for now and request CT abdomen pelvis with contrast to rule out pyelonephritis, UA shows mild pyuria however sample is contaminant it shows 1+ bacteria with negative nitrite If she becomes febrile, please obtain 2 sets of blood cultures from 2 different sites and inform hospitalist service No need of IV antibiotics for now, monitor response on PO Levaquin in next 48 hours Start methenamine as well which helps with dysuria On review of previous CT abdomen pelvis, please note she had a focal cortical defect in left kidney which could be a renal infarct, considering history of pulmonary embolism, carcinoma/malignancy should also be considered in differentials along pelvic inflammatory disease considering recurrent UTIs Her echo from 2019 revealed ejection fraction 60% with grade 1 diastolic dysfunction without any vegetations, sterilee blood cultures, no evidence of endocarditis Back pain S4-S5 fracture detected in January 2020, grade 1 spondylolisthesis L5 Rule out pyelonephritis, requested CT abdomen pelvis with contrast, I am hesitant to add more opioids as she will be getting antipsychotics, for bone pain Tylenol is sufficient but she might have high tolerance to mild analgesics, if needed can use p.o. oxycodone with senna S bowel regimen Alcohol dependence: Continue thiamine and folic acid regimen Suicidal ideation: Management as per NPU Plan of care discussed with the NPU nurse, will update my team in the morning to follow-up, thank you for consulting us for management of recurrent UTI of Ms. Orourke, should you have any questions please feel free to touch base with the hospitalist team. Consult Attestations Medical Necessity Statement: As per neuropsychiatric unit Time Spent in Patient Care: 30mins Coding Level of Care Code Acute Eligibility Services Representative for [facility] Fwd Diagnoses Suicidal ideation R45.851 Alcohol intoxication F10.920 Complication of substance-induced condition: uncomplicated Depression F32.9 Depression Type: unspecified UTI (urinary tract infection) N30.01 Hematuria presence: with hematuria Urinary tract infection type: acute cystitis
--- NOTE | 2020-12-10 05:19 | CTR_ITS ---
PROCEDURE INFORMATION: Exam: CT Abdomen And Pelvis With Contrast Exam date and time: 12/10/2020 5:54 AM Age: 45 years old Clinical indication: Abdominal pain; Localized; Prior surgery; Surgery type: Hysterectomy. Appy. Tubal ligation. ; Patient HX: C/O lower abd pain with dysuria. ; Additional info: Recurrent UTI, dysuria TECHNIQUE: Imaging protocol: Computed tomography of the abdomen and pelvis with contrast. Radiation optimization: All CT scans at this facility use at least one of these dose optimization techniques: automated exposure control; mA and/or kV adjustment per patient size (includes targeted exams where dose is matched to clinical indication); or iterative reconstruction. Contrast material: OMNI 350; Contrast volume: 95 ml; Contrast route: INTRAVENOUS (IV); COMPARISON: CT angio chest w abd pel w con 05/31/2020 5:29 PM RADIATION DOSE METRICS: Total DLP (mGy-cm): 1062.02 FINDINGS: Lungs: Interstitial prominence and mild basilar airspace disease. Liver: Hepatomegaly and fatty infiltration of the liver. Gallbladder and bile ducts: Mild gallbladder wall thickening. No cholelithiasis or biliary ductal dilatation. Pancreas: No pancreatic mass or ductal dilatation. Spleen: No splenomegaly. Adrenal glands: Unremarkable adrenals. Kidneys and ureters: Left renal scarring. No hydronephrosis. Stomach and bowel: Mild wall thickening in the nondistended stomach. No significant small bowel dilatation. Prominent stool. Appendix: Status post appendectomy. Intraperitoneal space: No significant free fluid. Vasculature: Normal caliber of the abdominal aorta. Pelvic vascular calcifications. Lymph nodes: Subcentimeter lymph nodes. Urinary bladder: Circumferential bladder wall thickening, consistent with cystitis in the appropriate clinical setting. Reproductive: Status post hysterectomy. Bones/joints: L5 spondylolysis and grade 1 anterolisthesis of L5 on S1. Mild degenerative change and disc bulging. CT/CT abdomen pelvis w con* [id number] IMPRESSION: 1. Circumferential bladder wall thickening, consistent with cystitis in the appropriate clinical setting. 2. Additional findings as described above. Radiation Dose CTDIVOL = (mGy): DLP = 1062.02 (mGy-cm)
[2020-12-10 05:34] LABS: Magnesium 1.7 mg/dL (1.7-2.3)
[2020-12-10 06:00] VITALS: BP 94/69; PULSE 89; RESP 18; TEMP 36.8
[2020-12-10] MEDS: iohexol 300 mg/mL 100 mL Btl IV (06:13)
[2020-12-10] MEDS: multivitamin therapeutic Tablet 1 TAB PO (09:03)
[2020-12-10] MEDS: levoFLOXacin 750 mg Tablet PO (09:03)
[2020-12-10] MEDS: folic acid 1 mg Tablet PO (09:04)
[2020-12-10] MEDS: thiamine 100 mg Tablet PO (09:04)
[2020-12-10] MEDS: potassium chloride ER 20 mEq Tablet 40 MEQ PO (09:04)
[2020-12-10] MEDS: ibuprofen 600 mg Tablet PO ×2 (12:25→20:31)
[2020-12-10 13:33] VITALS: BP 98/71; PULSE 76; RESP 15; TEMP 36.6; O2SAT 100
--- NOTE | 2020-12-10 13:41 | P.PN_ITS ---
Subjective NPU Subjective: Interval history: Reports decreasing withdrawal symptoms, continues to report occasional upset stomach, 1 episode of emesis since yesterday Patient was reporting some abdominal discomfort and was seen by the hospitalist, currently denying any suprapubic or abdominal discomfort Denies any difficulty with urination, denies any dysuria Denies any interval mood symptoms, denies any depressed symptoms, denies any suicidal ideation Reports being compliant with medication, denies any medication side effects Patient communicates her interest in pursuing outpatient substance counseling/treatment Mental Status Exam MSE Comments: Calm, cooperative, appropriately groomed and dressed wearing hospital scrubs, good eye contact Psychomotor activity is somewhat decreased, no agitation Speech is normal volume, normal rate, spontaneous, clear articulation, not pressured I feel a little better, congruent affect, not labile Alert and oriented to person, place, time, situation Memory and concentration appear to be intact per interview Thought process, linear Thought content, no delusions, no hallucinations, no suicidal or homicidal ideation Insight and judgment appear to be fair Vitals/I&O/Wt Last Vital Signs Temp 97.9 F 12/10/20 13:33 Pulse 76 12/10/20 13:33 Resp 15 12/10/20 13:33 BP 98/71 12/10/20 13:33 Pulse Ox 100 12/10/20 13:33 12/09/20 12/10/20 12/10/20 22:59 06:59 14:59 Intake Total 480 / 480 Balance 480 / 480 Weight last 48 hrs Weight 64.41 kg Data NPU : 12/09/20 22:38 12/09/20 22:38 A&P Assessment and plan (1) Suicidal ideation: Status: Acute (2) Alcohol intoxication: Status: Acute Qualifiers: Complication of substance-induced condition: uncomplicated Qualified Code(s): F10.920 - Alcohol use, unspecified with intoxication, uncomplicated (3) Depression: Status: Acute Qualifiers: Depression Type: unspecified Qualified Code(s): F32.9 - Major depressive disorder, single episode, unspecified Additional A&P Information Reports significant improvement in overall withdrawal symptoms, reported some abdominal discomfort and was seen by the hospitalist overnight CONTINUE current medication, continue to monitor Appreciate hospitalist evaluation and treatment Continue coordination with older adult social work specialist for post discharge alcohol counseling/treatment Involuntary Hold Information 96 Hour Hold: 96 Hour Involuntary Admission: No Attestations NPU Medical Necessity Statement*: Continues to require psychiatric hospitalization for medication stabilization, coordination for safe discharge. 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
--- NOTE | 2020-12-10 21:01 | P.PN_ITS ---
Subjective Subjective: Interval history: Long discussion regarding foci of chronic pain, arthritis, including back pain, coccyx, more recently pain in the right hip after falling down at home several weeks ago. Appears to be walking unassisted at the time of my visit to NPU. Otherwise denies urinary symptoms at this time. Having right-sided abdominal pain which persist, although discussed with her results of CT abdomen pelvis which did not appear to show any traumatic injury in the area. Does appear to have fatty liver infiltration. Vitals/I&O/Wt Last Vital Signs Temp 97.9 F 12/10/20 13:33 Pulse 76 12/10/20 13:33 Resp 15 12/10/20 13:33 BP 98/71 12/10/20 13:33 Pulse Ox 100 12/10/20 13:33 12/10/20 12/10/20 12/10/20 06:59 14:59 22:59 Intake Total 480 / 480 240 / 720 Balance 480 / 480 240 / 720 Weight last 48 hrs Weight 64.41 kg Physical Exam Const: COMMON NORMALS: no acute distress and patient oriented x3 HENMT: COMMON NORMALS: oropharynx normal Neck/C-Spine: COMMON NORMALS: no JVD Resp: COMMON NORMALS: normal respiratory effort and clear to auscultation bilaterally AUSCULTATION: clear to auscultation bilaterally Cardio: COMMON NORMALS: no JVD, regular rhythm, S1 normal heart sound present, S2 normal heart sound present and No murmurs present (Cardio) RHYTHM: regular rhythm HEART SOUNDS: S1 normal heart sound present and S2 normal heart sound present GI: COMMON NORMALS: Normal to inspection, nondistended, normoactive bowel sounds present, Soft to palpation and non-tender PALPATION: Yes Soft to palpation Extremity: COMMON NORMALS: no joint enlargement and no pedal edema Neuro: COMMON NORMALS: patient oriented x3 and moves all extremities Skin: COMMON NORMALS: no rashes or lesions noted GENERAL SKIN EXAM: no rashes or lesions noted Data : 12/09/20 22:38 12/09/20 22:38 A&P Assessment and plan (1) Suicidal ideation: Status: Acute (2) Alcohol intoxication: Status: Acute Qualifiers: Complication of substance-induced condition: uncomplicated Qualified Code(s): F10.920 - Alcohol use, unspecified with intoxication, uncomplicated (3) Depression: Status: Acute Qualifiers: Depression Type: unspecified Qualified Code(s): F32.9 - Major d epressive disorder, single episode, unspecified (4) UTI (urinary tract infection): Continue Levaquin. Follow-up urine culture. Methenamine may be considered after complete antibiotic course. No obstruction on CT abdomen pelvis. Status: Acute Qualifiers: Hematuria presence: with hematuria Urinary tract infection type: acute cystitis Qualified Code(s): N30.01 - Acute cystitis with hematuria Additional A&P Information Right hip pain after fall: We will discuss imaging with radiology to see if on CT any hairline fracture can be visualized, although doubt any fracture given she is walking unassisted without problems. Recurrent UTIs Back pain S4-S5 fracture detected in January 2020, grade 1 spondylolisthesis L5. No pyelonephritis Alcohol dependence: Continue thiamine and folic acid regimen Suicidal ideation: Management as per NPU Attestations Medical Necessity Statement*: Continue admission for assessment management of psychiatric conditions. 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
[2020-12-10] MEDS: OLANZapine 5 mg ODT PO (21:29)
--- NOTE | 2020-12-10 21:34 | PC.NURSE ---
The patient reported feeling irritated, agitated. Requested and given prn Zyprexa 5 mg po.
[2020-12-10 22:00] VITALS: BP 108/79; PULSE 71; RESP 16; TEMP 36.7; O2SAT 98
--- NOTE | 2020-12-10 22:40 | PC.NURSE ---
The patient has been working on a puzzle book in her room in bed. She asked for the second Trazodone for insomnia. Given Trazodone 50 mg po prn.
[2020-12-11 06:00] VITALS: BP 111/74; PULSE 61; RESP 18; TEMP 36.6; O2SAT 97
[2020-12-11] MEDS: levoFLOXacin 750 mg Tablet PO (06:13)
[2020-12-11 07:27] LABS: Basophils % 0.9 %; Eosinophils # 0.1 10^3/uL (0.0-0.8); Eosinophils % 2.3 %; Hematocrit 36.1 % (37.0-47.0); Hemoglobin 11.1 g/dL (11.5-15.3); Lymphocytes # 1.4 10^3/uL (0.8-4.8); Lymphocytes % 41.4 %; Mean Corpuscular HGB Conc 30.7 g/dL (30.0-36.0); Mean Corpuscular Hemoglobin 39.4 pg (28.0-34.0); Mean Platelet Volume 10.4 fL (7.4-10.4); Monocytes # 0.2 10^3/uL (0.2-0.9); Monocytes % 6.7 %; Neutrophils # 1.67 10^3/uL (1.8-7.7); Neutrophils % 48.4 %; Nucleated Red Blood Cells % 0 %; Platelet Count 101 10^3/cmm (130-400); Red Blood Count 2.82 10^6/uL (4.1-5.3); Red Cell Distribution Width 15.9 % (12.1-15.1); White Blood Count 3.5 10^3/uL (4.0-10.0)
[2020-12-11 07:44] LABS: Blood Urea Nitrogen 7 mg/dL (6-20); Calcium 8.9 mg/dL (8.5-10.5); Carbon Dioxide 21 mmol/L (22-29); Chloride 104 mmol/L (98-107); Glomerular Filtration Rate 107.6 mL/min (90-130); Glucose 90 mg/dL (65-115); Osmolality Calculated 284 mOsm/kg (285-295); Sodium 138 mmol/L (136-145)
[2020-12-11 07:47] LABS: Anion Gap 17.4 (5-19); Potassium 4.4 mmol/L (3.5-5.1)
[2020-12-11] MEDS: multivitamin therapeutic Tablet 1 TAB PO (08:06)
[2020-12-11] MEDS: thiamine 100 mg Tablet PO (08:06)
[2020-12-11] MEDS: folic acid 1 mg Tablet PO (08:06)
[2020-12-11] MEDS: ibuprofen 600 mg Tablet PO (09:11)
--- NOTE | 2020-12-11 10:11 | P.DS_ITS ---
Diagnoses at Discharge Discharge Diagnosis (1) Suicidal ideation: Status: Acute (2) Alcohol intoxication: Status: Acute Qualifiers: Complication of substance-induced condition: uncomplicated Qualified Code(s): F10.920 - Alcohol use, unspecified with intoxication, uncomplicated (3) Depression: Status: Acute Qualifiers: Depression Type: unspecified Qualified Code(s): F32.9 - Major depressive disorder, single episode, unspecified (4) UTI (urinary tract infection): Status: Acute Qualifiers: Hematuria presence: with hematuria Urinary tract infection type: acute cystitis Qualified Code(s): N30.01 - Acute cystitis with hematuria Reason for Visit Reason for Visit: [facility] - THOUGHTS OF SELF HARM Hospital Course Hospital Course 45 year old female with a longstanding history of alcohol dependence with recent escalation of her alcohol use presented to the emergency department with alcohol intoxication and suicidal ideation in the context of multiple stressors to include 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 Patient reported some withdrawal symptoms and was started on CIWA protocol with effective management of her symptoms. Patient was restarted on home medications with no reports of any medication side effects. Patient participated in unit milieu to include group sessions with no reports of any behavioral disturbances. Patient communicated her interest in post discharge alcohol counseling/treatment as well as therapy targeting the development of more adaptive coping strategies in the context of her ongoing life stressors. Patient was not suicidal and did not appear to pose an imminent threat of harm to self or others at the time of discharge. Low to moderate risk of harm to self given no current suicidal ideation and no active psychiatric symptoms although patient's risk may be elevated if she continues to abuse alcohol or is noncompliant with her follow-up treatment recommendations leading to unexpected, impulsive behavior. Risk mitigation included psychiatric hospitalization, medication stabilization as well as recommendation to abstain from use of alcohol and substances and need for compliance with her medication, medication management and counseling follow-up in. Patient was able to communicate her understanding of the need to abstain from use of alcohol and the need for compliance with her medication, medication management and counseling follow-up in order to further mitigate her risk of harm to self and others. Involuntary Hold Information 96 Hour Hold: 96 Hour Involuntary Admission: No Mental Status Exam MSE Comments: Sitting in the day room, appropriately groomed and dressed wearing hospital scrubs, polite, interactive, good eye contact Psychomotor activity is neither increased nor decreased, no agitation Speech is normal volume, normal rate, spontaneous, clear articulation, not pressured I feel good, congruent affect, smiling appropriately at times during interview, not labile Alert and oriented to person, place, time, situation Memory and concentration appear to be intact per interview Thought process, linear Thought content, no delusions, no hallucinations, no suicidal or homicidal ideation Insight and judgment appear to be fair Discharge Data Data Completed and Pending: Completed Studies During Hospitalization Category Date Time Status CT abdomen pelvis w con* [id number] Xiomara arreguin Cat Scan 12/10/20 05:19 Completed Pending at discharge Category Date Time Status CT/GC/TV LUMA Xiomara arreguin Lab 12/10/20 09:26 Received Labs from last 24 hours 12/11/20 12/11/20 07:17 07:17 WBC 3.5 L RBC 2.82 L Hgb 11.1 L Hct 36.1 L MCV 116.0 H MCH 39.4 H MCHC 30.7 RDW 15.9 H Plt Count 101 L MPV 10.4 Neut % (Auto) 48.4 Lymph % (Auto) 41.4 [place] % (Auto) 6.7 Eos % (Auto) 2.3 Baso % (Auto) 0.9 Neut # (Auto) 1.67 L Lymph # (Auto) 1.4 [place] # (Auto) 0.2 Eos # (Auto) 0.1 Baso # (Auto) 0.0 Nucleated RBC % (a uto) 0 Nucleated RBCs # 0.0 Sodium 138 Potassium 4.4 Chloride 104 Carbon Dioxide 21 L Anion Gap 17.4 BUN 7 Creatinine 0.6 GFR Calculation 107.6 Glucose 90 Calculated Osmolal ity 284 L Calcium 8.9 Vitals: Last Vital Signs Temp 97.8 F 12/11/20 06:00 Pulse 61 12/11/20 06:00 Resp 18 12/11/20 06:00 BP 111/74 12/11/20 06:00 Pulse Ox 97 12/11/20 06:00 Discharge Plan Discharge Patient Disposition: Home Condition: Stable Prescriptions: New multivitamin with folic acid [Thera] 400 mcg Tablet 1 tab PO DAILY Qty: 30 RF: 0 levofloxacin 750 mg Tablet 750 mg PO DAILY@0600 Qty: 10 RF: 0 thiamine mononitrate (vit B1) [Vitamin B-1 (mononitrate)] 100 mg Tablet 100 mg PO DAILY Qty: 30 RF: 0 Continued esomeprazole magnesium [Nexium] 20 mg Capsule,Delayed Release(Dr/Ec) 20 mg PO BID RF: 0 cetirizine [Zyrtec] 10 mg Tablet 10 mg PO BID RF: 0 folic acid 400 mcg Tablet 800 mcg PO DAILY RF: 0 propranolol 20 mg Tablet 20 mg PO TID 30 Days Qty: 90 RF: 1 fluoxetine 20 mg Capsule 20 mg PO DAILY 30 Days Qty: 30 RF: 1 Discontinued ondansetron HCl [Zofran] 4 mg tablet 4 mg PO Q6H PRN (Reason: nausea and vomiting) Qty: 20 RF: 0 Discharge Orders: Discharge Order (Routine); Ordered 12/11/20 Ordered By: Khadijah Davidson Referrals: Jeni Monsivais MD [Primary Care Provider] - 12/14/20 10:30 am (No special instructions and show 15 minutes early for the appointment.) Discharge Diet: Regular Discharge Activity: Resume usual activity Patient Instructions: Opioid Safety Discharge Attestations NPU Time Spent in Discharge Care*: greater than 30 min Status at Discharge: Cognitive status at discharge: cognitively intact , Behavioral status at discharge: cooperative , Functional status at discharge: independent ambulation Overall status at discharge: patient is back to baseline Coding Level of Care Code Acute Chg FW DC note Diagnoses Suicidal ideation R45.851 Alcohol intoxication F10.920 Complication of substance-induced condition: uncomplicated Depression F32.9 Depression Type: unspecified UTI (urinary tract infection) N30.01 Hematuria presence: with hematuria Urinary tract infection type: acute cystitis
[2020-12-11 10:20] VITALS: BP 111/74; PULSE 61; RESP 18; TEMP 36.6; O2SAT 97
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
== END 2020-12-11 12:51 | disposition home or self-care (01) | DRG 897 ==
LOC: ER 22:39 → NP 23:21
PROVIDERS: Internal Medicine; Admitting Provider Psychiatry & Neurology Psychiatry; Emergency Provider Emergency Medicine; PCP Family Medicine; Visit Provider Psychiatry & Neurology Psychiatry
DX: F10.229 Alcohol dependence with intoxication, unspecified (principal); R45.851 Suicidal ideations; N30.01 Acute cystitis with hematuria; F10.239 Alcohol dependence with withdrawal, unspecified; I12.9 Hypertensive chronic kidney disease with stage 1 through stage 4 chronic kidney disease, or unspecified chronic kidney disease; N18.2 Chronic kidney disease, stage 2 (mild); M79.7 Fibromyalgia; K21.9 Gastro-esophageal reflux disease without esophagitis; E03.9 Hypothyroidism, unspecified; Z86.711 Personal history of pulmonary embolism; Z87.440 Personal history of urinary (tract) infections; M48.02 Spinal stenosis, cervical region; D51.9 Vitamin B12 deficiency anemia, unspecified; E55.9 Vitamin D deficiency, unspecified; F17.210 Nicotine dependence, cigarettes, uncomplicated; F32.9 Major depressive disorder, single episode, unspecified; E87.6 Hypokalemia; K76.0 Fatty (change of) liver, not elsewhere classified; Z91.81 History of falling; M25.551 Pain in right hip; G89.29 Other chronic pain; S32.10XS Unspecified fracture of sacrum, sequela; X58.XXXS Exposure to other specified factors, sequela; M43.17 Spondylolisthesis, lumbosacral region
CPT/HCPCS: 36415; 74177; 80048; 80053; 80306; 80307; 81001; 83735; 84439; 84443; 85025; 87491; 87591; 87661; 99285; Q0162; Q9967

== ENCOUNTER 2020-12-17 13:06 | Observation (INO) | payer SELFPAY ==
[2020-12-17 13:16] VITALS: BP 137/95; PULSE 110; RESP 18; TEMP 37; O2SAT 97; BMI 21.7
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
[2020-12-17 14:07] LABS: Add Urine Microscopic? NO; Charge for UA Resulting for Rev
[2020-12-17 14:13] LABS: Bilirubin Urine Neg (Negative); Blood Urine Neg (Negative); Glucose Urine UA Norm (Normal); Ketones Urine Negative (Negative); Leukocyte Esterase Urine Negative (Negative); Nitrate Urine Negative (Negative); Protein Urine Neg (Negative); Specific Gravity, Urine 1.005 (1.005-1.030); Urine Appearance Clear (CLEAR); Urine Color Straw (Yellow); Urobilinogen Urine Norm (Negative); pH Urine 6.5 (5-7)
[2020-12-17 14:17] LABS: Amphetamines Screen Urine Negative (Negative); Barbiturates Screen Urine Negative (Negative); Benzodiazepines Screen Urine Positive (Negative); Cocaine Screen Urine Negative (Negative); Opiate Screen Urine Negative (Negative); PCP Screen Urine Negative (Negative); THC Screen Urine Negative (Negative)
[2020-12-17 14:20] LABS: Basophils # 0.1 10^3/uL (0.0-0.1); Basophils % 1.7 %; Eosinophils # 0.1 10^3/uL (0.0-0.8); Hematocrit 38.2 % (37.0-47.0); Hemoglobin 13.5 g/dL (11.5-15.3); Lymphocytes # 2.2 10^3/uL (0.8-4.8); Lymphocytes % 53.6 %; Mean Corpuscular HGB Conc 35.3 g/dL (30.0-36.0); Mean Corpuscular Hemoglobin 39.4 pg (28.0-34.0); Mean Corpuscular Volume 111.4 fL (81-99); Mean Platelet Volume 9.6 fL (7.4-10.4); Monocytes # 0.3 10^3/uL (0.2-0.9); Monocytes % 7.7 %; Neutrophils # 1.35 10^3/uL (1.8-7.7); Neutrophils % 33.8 %; Nucleated Red Blood Cells % 0 %; Platelet Count 171 10^3/cmm (130-400); Red Blood Count 3.43 10^6/uL (4.1-5.3); Red Cell Distribution Width 15.6 % (12.1-15.1)
[2020-12-17 14:55] LABS: Alanine Aminotransferase 33 U/L (0-33); Albumin Level 4.5 g/dL (3.5-5.2); Alcohol Level 279 mg/dL (0-10); Alkaline Phosphatase 134 IU/L (35-105); Anion Gap 20.8 (5-19); Aspartate Amino Transferase 49 U/L (0-32); Blood Urea Nitrogen 6 mg/dL (6-20); Calcium 8.7 mg/dL (8.5-10.5); Carbon Dioxide 22 mmol/L (22-29); Chloride 105 mmol/L (98-107); Globulin 3.5 g/dL (1.3-4.6); Glomerular Filtration Rate 107.6 mL/min (90-130); Glucose 89 mg/dL (65-115); Osmolality Calculated 295 mOsm/kg (285-295); Potassium 3.8 mmol/L (3.5-5.1); Sodium 144 mmol/L (136-145); Total Bilirubin 0.7 mg/dL (0.15-1.2)
[2020-12-17 14:57] LABS: Acetaminophen < 5.0 ug/mL (10-30); Salicylate < 0.3 mg/dL (3-10)
[2020-12-17 15:30] VITALS: BP 122/91; PULSE 93; RESP 20; TEMP 37.1; O2SAT 98
[2020-12-17] MEDS: LORazepam 2 mg Tablet PO (21:35)
[2020-12-17 22:00] VITALS: BP 133/96; PULSE 95; RESP 17; TEMP 36.6; O2SAT 95
--- NOTE | 2020-12-18 03:20 | PC.NURSE ---
PRN Administered Ativan 2mg PO @21:35 for anxiety reassessed at 22:08 pt was asleep is bed, will continue to monitor pt until the end of my shift
[2020-12-18 06:00] VITALS: BP 143/99; PULSE 83; RESP 16; TEMP 36.7; O2SAT 98
[2020-12-18] MEDS: multivitamin therapeutic Tablet 1 TAB PO (08:57)
[2020-12-18] MEDS: thiamine 100 mg Tablet PO (08:57)
[2020-12-18] MEDS: folic acid 1 mg Tablet PO (08:57)
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
[2020-12-18 14:00] VITALS: BP 121/88; PULSE 80; RESP 18; TEMP 36.7; O2SAT 99
[2020-12-18] MEDS: LORazepam 2 mg Tablet PO (21:08)
[2020-12-18 21:44] VITALS: BP 110/68; PULSE 82; RESP 16; TEMP 37.2; O2SAT 97
--- NOTE | 2020-12-18 22:02 | PC.NURSE ---
prn 21:08 administered 2mg PO Ativan for building agitation in reguards to not being discharged from the unit today. 21:42 reassessed pt, observed pt alseep at this time, will continue to monitor until end of shift
[2020-12-19 05:49] VITALS: BP 111/82; PULSE 74; RESP 20; TEMP 36.8; O2SAT 96
[2020-12-19] MEDS: thiamine 100 mg Tablet PO (08:19)
[2020-12-19] MEDS: folic acid 1 mg Tablet PO (08:19)
[2020-12-19] MEDS: multivitamin therapeutic Tablet 1 TAB PO (08:19)
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
[2020-12-19 12:48] VITALS: BP 111/82; PULSE 74; RESP 20; TEMP 36.8; O2SAT 96
== END 2020-12-19 12:55 | disposition home or self-care (01) ==
LOC: ER 14:32 → NP 14:51
PROVIDERS: Nurse Practitioner Family; Admitting Provider Psychiatry & Neurology Psychiatry; Emergency Provider Family Medicine; PCP Family Medicine; Visit Provider Psychiatry & Neurology Psychiatry
DX: R45.851 Suicidal ideations (principal); F10.10 Alcohol abuse, uncomplicated; F32.9 Major depressive disorder, single episode, unspecified
CPT/HCPCS: 80053; 80306; 80307; 81003; 85025; 99285; G0378

== ENCOUNTER 2020-12-29 13:18 | Emergency (ER) | payer SELFPAY ==
[2020-12-29 14:29] VITALS: BP 114/83; PULSE 95; RESP 18; TEMP 36.9; O2SAT 98; BMI 21.6
--- NOTE | 2020-12-29 15:26 | W.ED.MEDCLER ---
HPI - Medical Clearance General Chief complaint: Medical Clearance Stated complaint: NEEDS CLEARANCE FOR [facility] Time Seen by Provider: 12/29/20 15:22 Source: patient Mode of arrival: ambulatory Limitations: no limitations History of Present Illness HPI Narrative: Patient is a 45-year-old female who comes to the ED for medical clearance for [facility]. Patient is [facility] abuse. She says she drinks a pint of either whiskey or vodka daily. Says her last drink was at noon today. She went to [facility] to get checked in and they took her alcohol level via breathalyzer and it was elevated. They sent patient here to the ED for medical clearance. Patient is having no symptoms or complaints. She is not going through any withdrawal symptoms. She is alert and oriented and ambulatory here in the ED. Exam of patient was benign and she appears in no acute distress or pain. She is alert and oriented x3 and ambulatory without any complications. Related Information Home Medications Medication Instructions Recorded Confirmed cetirizine [Zyrtec] 10 mg PO BID PRN 01/04/20 12/29/20 Previous Rx's Medication Instructions Recorded fluoxetine 20 mg PO DAILY 30 Days #30 cap 11/02/20 propranolol 20 mg PO TID 30 Days #90 tab 11/02/20 multivitamin with folic acid 1 tab PO DAILY #30 tab 12/11/20 [Thera] Allergies Allergy/AdvReac Type Severity Reaction Status Date / Time Sulfa (Sulfonamide Allergy Intermediate ALGY-Rash Verified 12/29/20 15:47 Antibiotics) methocarbamol [From Robaxin] Allergy Mild ADR-Itching Verified 12/29/20 15:47 acetaminophen [From Percocet] Allergy ALGY-Swell Verified 12/29/20 15:47 Lip/Tongue/Throat amoxicillin [From Augmentin] Allergy swelling Verified 12/29/20 15:47 azithromycin [From Zithromax] Allergy ADR-Itching Verified 12/29/20 15:47 clavulanic acid Allergy swelling Verified 12/29/20 15:47 [From Augmentin] clindamycin [From Cleocin] Allergy ALGY-Rash Verified 12/29/20 15:47 codeine Allergy ADR-Itching Verified 12/29/20 15:47 cyclobenzaprine Allergy ADR-Swelling Verified 12/29/20 15:47 [From Flexeril] of the Eye Egg Derived Allergy ADR-Vomitin Verified 12/29/20 15:47 g hydrocodone Allergy ALGY-Swell Verified 12/29/20 15:47 Lip/Tongue/Throat hydroxyzine Allergy ALGY-Hives Verified 12/29/20 15:47 loratadine [From Claritin] Allergy Unknown Verified 12/29/20 15:47 oxycodone [From Percocet] Allergy ALGY-Swell Verified 12/29/20 15:47 Lip/Tongue/Throat tizanidine Allergy ADR-Itching Verified 12/29/20 15:47 tramadol Allergy ALGY-Rash Verified 12/29/20 15:47 Course Vital Signs Temperature 98.5 F 12/29/20 14:29 Pulse Rate 91 12/29/20 17:38 Respiratory Rate 17 12/29/20 17:38 Blood Pressure 131/86 12/29/20 17:38 Pulse Oximetry 100 12/29/20 17:38 MDM - Medical Clearance MDM Narrative Medical decision making narrative: Patient is a 45-year-old female comes to the ED for medical clearance for to go to [facility]. Patient has a history of alcohol abuse and was going to [facility] today to start treatment. They did a breathalyzer test on her and it was elevated and they wanted her to come to the ED to be medically cleared and to be started on medication Librium to help with withdrawal. Once patient is medically cleared she can return go back to [facility] for treatment. Patient appears nontoxic is in no acute distress or pain. Her exam is benign, she is a alert and oriented x3 and able to ambulate with no complications. CBC and CMP were unremarkable. Urine drug screen showed positive for benzodiazepines. Blood alcohol level 258. Patient was discharged diagnosed with an encounter for medical clearance for patient hold and alcohol abuse. She was sent home with a prescription for Librium and told to start taking as prescribed while she starts detox. I told patient she cannot have any alcohol while taking Librium. Patient understood and agree with plan. She was discharged and she is going to return to [facility] to start treatment. Lab Data Attestation: I reviewed the patient's lab results. Result diagrams: 12/29/20 16:20 12/29/20 16:20 Labs: Lab Results 12/29/20 12/29/20 12/29/20 Range/Units 16:20 16:20 16:31 WBC 3.6 L (4.0-10.0) 10^3/uL RBC 3.44 L (4.1-5.3) 10^6/uL Hgb 13.5 (11.5-15.3) g/dL Hct 40.3 (37.0-47.0) % MCV 117.2 H (81-99) fL MCH 39.2 H (28.0-34.0) pg MCHC 33.5 (30.0-36.0) g/dL RDW 15.2 H (12.1-15.1) % Plt Count 168 (130-400) 10^3/cmm MPV 10.1 (7.4-10.4) fL Neut % (Auto) 38.3 % Lymph % (Auto) 49.0 % Potter % (Auto) 6.6 % Eos % (Auto) 3.9 % Baso % (Auto) 1.9 % Neut # (Auto) 1.39 L (1.8-7.7) 10^3/uL Lymph # (Auto) 1.8 (0.8-4.8) 10^3/uL Potter # (Auto) 0.2 (0.2-0.9) 10^3/uL Eos # (Auto) 0.1 (0.0-0.8) 10^3/uL Baso # (Auto) 0.1 (0.0-0.1) 10^3/uL Nucleated RBC % (auto) 0 % Nucleated RBCs # 0.0 /100WBC Sodium 141 (136-145) mmol/L Potassium 3.9 (3.5-5.1) mmol/L Chloride 102 (98-107) mmol/L Carbon Dioxide 22 (22-29) mmol/L Anion Gap 20.9 H (5-19) BUN 6 (6-20) mg/dL Creatinine 0.5 (0.5-0.9) mg/dL GFR Calculation 132.8 H (90-130) mL/min Glucose 98 (65-115) mg/dL Calculated Osmolality 290 (285-295) mOsm/kg Calcium 8.6 (8.5-10.5) mg/dL Total Bilirubin 0.5 (0.15-1.2) mg/dL AST 64 H (0-32) U/L ALT 29 (0-33) U/L Alkaline Phosphatase 129 H (35-105) IU/L Total Protein 6.9 (6.6-8.7) g/dL Albumin 3.8 (3.5-5.2) g/dL Globulin 3.1 (1.3-4.6) g/dL Urine Color Yellow (Yellow) Urine Appearance Clear (CLEAR) Urine pH 5 (5-7) Ur Specific [place] 1.025 (1.005-1.030) Urine Protein Neg (Negative) Urine Glucose (UA) Norm (Normal) Urine Ketones Negative (Negative) Urine Blood Neg (Negative) Urine Nitrate Negative (Negative) Urine Bilirubin 1+ H (Negative) Urine Urobilinogen 8 H (Negative) mg/dL Ur Leukocyte Esterase Trace H (Negative) Urine RBC None (0-2) /hpf Urine WBC 10-15 H (0-5) /hpf Ur Squamous Epith Cells 5-10 H (0-5) /hpf Amorphous Sediment Not Reportable Urine Bacteria 1+ H (NONE) /hpf Urine Mucus Trace /hpf Urine Yeast 1+ H /hpf Urine Opiates Screen (Negative) ng/mL Ur Barbiturates Screen (Negative) ng/mL Ur Phencyclidine Scrn (Negative) ng/mL Ur Amphetamines Screen (Negative) ng/mL U Benzodiazepines Scrn (Negative) ng/mL Urine Cocaine Screen (Negative) ng/mL U Marijuana (THC) Screen (Negative) ng/mL Ethyl Alcohol 258 H (0-10) mg/dL 12/29/20 Range/Units 16:31 WBC (4.0-10.0) 10^3/uL RBC (4.1-5.3) 10^6/uL Hgb (11.5-15.3) g/dL Hct (37.0-47.0) % MCV (81-99) fL MCH (28.0-34.0) pg MCHC (30.0-36.0) g/dL RDW (12.1-15.1) % Plt Count (130-400) 10^3/cmm MPV (7.4-10.4) fL Neut % (Auto) % Lymph % (Auto) % Potter % (Auto) % Eos % (Auto) % Baso % (Auto) % Neut # (Auto) (1.8-7.7) 10^3/uL Lymph # (Auto) (0.8-4.8) 10^3/uL Potter # (Auto) (0.2-0.9) 10^3/uL Eos # (Auto) (0.0-0.8) 10^3/uL Baso # (Auto) (0.0-0.1) 10^3/uL Nucleated RBC % (auto) % Nucleated RBCs # /100WBC Sodium (136-145) mmol/L Potassium (3.5-5.1) mmol/L Chloride (98-107) mmol/L Carbon Dioxide (22-29) mmol/L Anion Gap (5-19) BUN (6-20) mg/dL Creatinine (0.5-0.9) mg/dL GFR Calculation (90-130) mL/min Glucose (65-115) mg/dL Calculated Osmolality (285-295) mOsm/kg Calcium (8.5-10.5) mg/dL Total Bilirubin (0.15-1.2) mg/dL AST (0-32) U/L ALT (0-33) U/L Alkaline Phosphatase (35-105) IU/L Total Protein (6.6-8.7) g/dL Albumin (3.5-5.2) g/dL Globulin (1.3-4.6) g/dL Urine Color (Yellow) Urine Appearance (CLEAR) Urine pH (5-7) Ur Specific [place] (1.005-1.030) Urine Protein (Negative) Urine Glucose (UA) (Normal) Urine Ketones (Negative) Urine Blood (Negative) Urine Nitrate (Negative) Urine Bilirubin (Negative) Urine Urobilinogen (Negative) mg/dL Ur Leukocyte Esterase (Negative) Urine RBC (0-2) /hpf Urine WBC (0-5) /hpf Ur Squamous Epith Cells (0-5) /hpf Amorphous Sediment Urine Bacteria (NONE) /hpf Urine Mucus /hpf Urine Yeast /hpf Urine Opiates Screen Negative (Negative) ng/mL Ur Barbiturates Screen Negative (Negative) ng/mL Ur Phencyclidine Scrn Negative (Negative) ng/mL Ur Amphetamines Screen Negative (Negative) ng/mL U Benzodiazepines Scrn Positive H (Negative) ng/mL Urine Cocaine Screen Negative (Negative) ng/mL U Marijuana (THC) Screen Negative (Negative) ng/mL Ethyl Alcohol (0-10) mg/dL Discharge Plan Discharge Patient Disposition: Home Clinical Impression: Encounter for medical clearance for patient hold Condition: Stable Prescriptions: No Action cetirizine [Zyrtec] 10 mg Tablet 10 mg PO BID PRN (Reason: Allergy Symptoms) RF: 0 propranolol 20 mg Tablet 20 mg PO TID 30 Days Qty: 90 RF: 1 fluoxetine 20 mg Capsule 20 mg PO DAILY 30 Days Qty: 30 RF: 1 multivitamin with folic acid [Thera] 400 mcg Tablet 1 tab PO DAILY Qty: 30 RF: 0 Discharge Orders: Discharge ED (Routine); Ordered 12/29/20 Ordered By: Yoshi Pope Referrals: Jeni Monsivais MD [Primary Care Provider] - Discharge Diet: Regular Discharge Activity: Resume usual activity Patient Instructions: Medical Clearance for Substance Abuse Treatment (ED) Activity Restrictions/Additional Instructions: Follow-up with medical provider as directed. Patient is medically cleared to start [facility] for [facility] abuse. Patient take medications as prescribed. Return to the ER or your medical provider if condition worsens. Please read and understand discharge instructions. Thank you for choosing [facility] for your healthcare needs today. Please realize this is an emergency room and that we are providing you with a medical screening exam and this may not be complete and all inclusive of all the testing and or work up that you may need to determine your ailment or severity of your illness. It is very important that you follow up as instructed or that you return to the Emergency Department should you have concerns or if your condition changes or worsens in any way.
[2020-12-29 16:23] VITALS: RESP 18
[2020-12-29 16:27] LABS: Basophils # 0.1 10^3/uL (0.0-0.1); Basophils % 1.9 %; Eosinophils # 0.1 10^3/uL (0.0-0.8); Eosinophils % 3.9 %; Hematocrit 40.3 % (37.0-47.0); Hemoglobin 13.5 g/dL (11.5-15.3); Lymphocytes # 1.8 10^3/uL (0.8-4.8); Mean Corpuscular HGB Conc 33.5 g/dL (30.0-36.0); Mean Corpuscular Hemoglobin 39.2 pg (28.0-34.0); Mean Corpuscular Volume 117.2 fL (81-99); Mean Platelet Volume 10.1 fL (7.4-10.4); Monocytes # 0.2 10^3/uL (0.2-0.9); Monocytes % 6.6 %; Neutrophils # 1.39 10^3/uL (1.8-7.7); Neutrophils % 38.3 %; Nucleated Red Blood Cells % 0 %; Platelet Count 168 10^3/cmm (130-400); Red Blood Count 3.44 10^6/uL (4.1-5.3); Red Cell Distribution Width 15.2 % (12.1-15.1); White Blood Count 3.6 10^3/uL (4.0-10.0)
[2020-12-29 16:46] LABS: Bilirubin Urine 1+ (Negative); Blood Urine Neg (Negative); Glucose Urine UA Norm (Normal); Ketones Urine Negative (Negative); Leukocyte Esterase Urine Trace (Negative); Nitrate Urine Negative (Negative); Protein Urine Neg (Negative); Specific Gravity, Urine 1.025 (1.005-1.030); Urine Appearance Clear (CLEAR); Urine Color Yellow (Yellow); Urobilinogen Urine 8 mg/dL (Negative); pH Urine 5 (5-7)
[2020-12-29 16:47] LABS: Add Urine Culture? Yes; Bacteria Urine 1+ /hpf; Mucus Urine TRACE /hpf
[2020-12-29 16:54] LABS: Amphetamines Screen Urine Negative (Negative); Barbiturates Screen Urine Negative (Negative); Benzodiazepines Screen Urine Positive (Negative); Cocaine Screen Urine Negative (Negative); Opiate Screen Urine Negative (Negative); PCP Screen Urine Negative (Negative); THC Screen Urine Negative (Negative)
[2020-12-29 17:15] LABS: Alanine Aminotransferase 29 U/L (0-33); Albumin Level 3.8 g/dL (3.5-5.2); Alcohol Level 258 mg/dL (0-10); Alkaline Phosphatase 129 IU/L (35-105); Aspartate Amino Transferase 64 U/L (0-32); Blood Urea Nitrogen 6 mg/dL (6-20); Calcium 8.6 mg/dL (8.5-10.5); Carbon Dioxide 22 mmol/L (22-29); Chloride 102 mmol/L (98-107); Globulin 3.1 g/dL (1.3-4.6); Glomerular Filtration Rate 132.8 mL/min (90-130); Glucose 98 mg/dL (65-115); Osmolality Calculated 290 mOsm/kg (285-295); Sodium 141 mmol/L (136-145); Total Bilirubin 0.5 mg/dL (0.15-1.2); Total Protein 6.9 g/dL (6.6-8.7)
[2020-12-29 17:16] LABS: Anion Gap 20.9 (5-19); Potassium 3.9 mmol/L (3.5-5.1)
[2020-12-29 17:24] VITALS: BP 131/86; PULSE 91; RESP 17; O2SAT 100
[2020-12-29 17:38] VITALS: BP 131/86; PULSE 91; RESP 17; O2SAT 100
--- NOTE | 2020-12-30 11:55 | PC.NURSE ---
carito had problem filling prescription under Yoshi Pope for librium. Dr. Reynoso gave telephone orders to fill medication
== END 2020-12-29 17:26 | disposition home or self-care (01) ==
PROVIDERS: Emergency Provider Physician Assistant; PCP Family Medicine
DX: F10.10 Alcohol abuse, uncomplicated (principal)
CPT/HCPCS: 80053; 80306; 80307; 81001; 85025; 87086; 99283

== ENCOUNTER 2021-02-06 19:33 | Emergency (ER) | payer SELFPAY ==
[2021-02-06 20:09] VITALS: BP 138/82; PULSE 111; RESP 20; TEMP 37.6; O2SAT 99; BMI 21.6
--- NOTE | 2021-02-06 20:45 | XRR_ITS ---
PROCEDURE INFORMATION: Exam: XR Right Ribs with PA Chest Exam date and time: 02/06/2021 8:45 PM Age: 45 years old Clinical indication: Injury or trauma; Fall; Rib area; Blunt trauma (contusions or hematomas); Additional info: Injury, fall, pain TECHNIQUE: Imaging protocol: XR Right ribs with PA chest. Views: 3 views COMPARISON: CR XR chest 1V portable [id number] 10/09/2020 1:36 PM FINDINGS: Lungs: Unremarkable. No consolidation. Pleural spaces: Unremarkable. No pleural effusion. No pneumothorax. Heart/Mediastinum: Unremarkable. No cardiomegaly. Bones/joints: Unremarkable. XR/XR ribs RT mn 3V w CXR1V [id number] IMPRESSION: No acute findings.
[2021-02-06 23:33] VITALS: BP 116/87; PULSE 91; RESP 16; O2SAT 97
[2021-02-06 23:35] VITALS: O2SAT 97
--- NOTE | 2021-02-07 01:05 | W.ED.FALL ---
HPI - Fall General: Chief Complaint: Fall Stated Complaint: SOB, R SIDE SHARP PAIN Time Seen by Provider: 02/06/21 23:18 History of Present Illness: HPI Narrative: 45-year-old female presenting after a fall from standing level onto concrete. She states her dog tripped her up. She complains of right-sided pain and pain with inspiration, yawning, and cough on the right side. She did not hit her head. complaint: fall Onset (ago): hour(s) Fall from: standing Fall witnessed: yes, by family Place fall occurred: home Loss of consciousness: None Prolonged down time: no Symptoms prior to fall: none Context: tripped/slipped Location of injury: chest Quality: sharp Associated symptoms-after fall: Denies abdominal pain, chest pain, confusion, difficulty walking, headache(s), neck pain or short of breath Review of Systems Const: Denies: fever(s) Eyes: Denies: change in vision Card: Denies: chest pain Resp: Denies: dyspnea GI: Denies: abdominal pain Musc: Denies: neck pain Neuro: Denies: headache(s), difficulty walking or confusion PFSH ED PFSH: Medical History Back pain CKD (chronic kidney disease) stage 2, GFR 60-89 ml/min Dyshidrotic hand dermatitis Fibromyalgia GERD (gastroesophageal reflux disease) Gram-negative bacteremia H/O HTN (hypertension) Hypothyroidism (acquired) Macrocytosis Migraine without aura, not intractable, without status migrainosus Nicotine abuse PSVT (paroxysmal supraventricular tachycardia) Pulmonary emboli Recurrent UTI Renal infarct Spinal stenosis, cervical region Transaminitis Vitamin B12 deficiency anemia Vitamin D deficiency Surgical History H/O colonoscopy 2018 - normal History of hysterectomy with bilateral oophorectomy History of radiofrequency ablation (RFA) procedure for cardiac arrhythmia Hx of appendectomy S/P carpal tunnel release S/P tubal ligation Family History Mother Atrial fibrillation Hypertension Social History Smoking and tobacco status: current every day smoker cigarettes Packs smoked per day: 0.5 Years cigarettes smoked: 30 Alcohol intake: current Alcohol intake frequency: 0-2 Drinks per Day Lives independently: Yes Household members: spouse and family Marital status: service: No Current occupational status: unemployed History of recent travel: No Current gender identity: Female Female Reproductive History: Date of last menstrual period: 07/31/10 Physical Exam Const: COMMON NORMALS: patient oriented x3 and alert GENERAL APPEARANCE: frail appearing Eye: COMMON NORMALS: Equal, round and reactive pupils present and EOMs intact bilaterally PUPIL: Yes Equal, round and reactive pupils present Neck/C-Spine: GENERAL: No tender Chest: COMMONS NORMALS: normal inspection of the chest CHEST: Yes tenderness rib (Lower ribs right side) Resp: COMMON NORMALS: normal respiratory effort, No use of accessory muscles and clear to auscultation bilaterally AUSCULTATION: clear to auscultation bilaterally GI: COMMON NORMALS: Normal to inspection, nondistended, normoactive bowel sounds present and non-tender Neuro: COMMON NORMALS: patient oriented x3 SENSORIUM/ORIENTATION: Yes alert Course Vital Signs: Vital signs: Vital Signs Temperature 99.6 F 02/06/21 20:09 Pulse Rate 96 02/07/21 01:26 Respiratory Rate 16 02/07/21 01:26 Blood Pressure 114/90 02/07/21 01:26 Pulse Oximetry 94 02/07/21 01:26 MDM - Fall MDM Narrative: Medical decision making narrative: 45-year-old female with right-sided chest wall pain after a fall. She appears nontoxic. Her oxygen saturations are normal. Her blood pressure is 115/86. Her chest x-ray and rib series is negative for pulmonary contusion, pneumothorax, or rib fracture. She has no signs of hemorrhage. Discharge Plan Discharge Patient Disposition: Home Clinical Impression: Contusion of chest wall Qualifiers: Encounter type: initial encounter Laterality: right Qualified Code(s): S20.211A - Contusion of right front wall of thorax, initial encounter Condition: Stable Prescriptions: New ketorolac 10 mg tablet 10 mg PO TID PRN (Reason: pain) Qty: 10 RF: 0 No Action cetirizine [Zyrtec] 10 mg Tablet 10 mg PO BID PRN (Reason: Allergy Symptoms) RF: 0 propranolol 20 mg Tablet 20 mg PO TID 30 Days Qty: 90 RF: 1 fluoxetine 20 mg Capsule 20 mg PO DAILY 30 Days Qty: 30 RF: 1 multivitamin with folic acid [Thera] 400 mcg Tablet 1 tab PO DAILY Qty: 30 RF: 0 Discharge Orders: Discharge ED (Routine); Ordered 02/07/21 Ordered By: Romario Nunes Referrals: Jeni Monsivais MD [Primary Care Provider] - 1-3 days Discharge Diet: Usual diet Discharge Activity: Increase activity as tolerated Patient Instructions: Contusion in Adults (ED) Activity Restrictions/Additional Instructions: Return for worsening shortness of breath, worsening pain despite treatment, coughing significantly, coughing up blood or sputum, fever greater than 100, any other concerning symptoms. Medication as directed Coding Level of Care Code ED Trans[employer]inder for Chg Fwd Exam Detailed
[2021-02-07 01:11] VITALS: RESP 16
[2021-02-07] MEDS: fentaNYL 50 mcg/mL INJ 2mL IVP (01:11)
[2021-02-07] MEDS: ketorolac 30 mg/mL INJ 15 MG IVP (01:11)
[2021-02-07 01:14] VITALS: BP 115/86; PULSE 94; RESP 16; O2SAT 94
[2021-02-07 01:26] VITALS: BP 114/90; PULSE 96; RESP 16; O2SAT 94
== END 2021-02-07 01:27 | disposition home or self-care (01) ==
PROVIDERS: Emergency Provider Emergency Medicine; PCP Family Medicine
DX: S20.211A Contusion of right front wall of thorax, initial encounter (principal); I12.9 Hypertensive chronic kidney disease with stage 1 through stage 4 chronic kidney disease, or unspecified chronic kidney disease; N18.2 Chronic kidney disease, stage 2 (mild); Z86.711 Personal history of pulmonary embolism; F17.210 Nicotine dependence, cigarettes, uncomplicated; W01.0XXA Fall on same level from slipping, tripping and stumbling without subsequent striking against object, initial encounter
CPT/HCPCS: 71101; 96374; 96375; 99283; J1885; J3010

== ENCOUNTER 2021-03-01 14:31 | Emergency (ER) | payer SELFPAY ==
[2021-03-01 15:22] VITALS: BP 107/74; PULSE 110; RESP 15; TEMP 36.8; O2SAT 98; BMI 21.2
--- NOTE | 2021-03-01 15:26 | XRR_ITS ---
PROCEDURE INFORMATION: Exam: XR Chest Exam date and time: 03/01/2021 3:26 PM Age: 45 years old Clinical indication: Shortness of breath; Additional info: SOB TECHNIQUE: Imaging protocol: XR of the chest. Views: 1 view. COMPARISON: CR (CHEST, ) 02/06/2021 10:26 PM FINDINGS: Lungs: Minor linear atelectasis or scarring at the peripheral left lung base. No focal consolidation. Pleural spaces: Unremarkable. No pleural effusion. No pneumothorax. Heart/Mediastinum: Unremarkable. No cardiomegaly. Bones/joints: Unremarkable. XR/XR chest 1V portable [id number] IMPRESSION: No acute findings.
[2021-03-01 21:34] VITALS: BP 123/93; PULSE 106; RESP 19; O2SAT 93
--- NOTE | 2021-03-01 21:39 | ED_ITS ---
HPI - SOB/Dyspnea General: Chief Complaint: Shortness of Breath/Dyspnea Stated Complaint: COUGHING RIB PAIN, DIZZY Time Seen by Provider: 03/01/21 16:46 History of Present Illness: HPI Narrative: Patient comes in today with complaints of left anterior chest wall pain and shortness of breath. Patient appears well. Patient appears no acute distress. Patient reports she has had the difficulty for about 2 to 3 days. Patient takes Nexium and allergy medicati on [id number] routinely. Patient does smoke. Review of Systems General: Reports: 10 or more systems reviewed and unremarkable except in HPI and below Card: Reports: other (Left anterior chest wall pain) [facility] ED PFSH: Medical History Back pain CKD (chronic kidney disease) stage 2, GFR 60-89 ml/min Dyshidrotic hand dermatitis Fibromyalgia GERD (gastroesophageal reflux disease) Gram-negative bacteremia H/O HTN (hypertension) Hypothyroidism (acquired) Macrocytosis Migraine without aura, not intractable, without status migrainosus Nicotine abuse PSVT (paroxysmal supraventricular tachycardia) Pulmonary emboli Recurrent UTI Renal infarct Spinal stenosis, cervical region Transaminitis Vitamin B12 deficiency anemia Vitamin D deficiency Surgical History H/O colonoscopy 2018 - normal History of hysterectomy with bilateral oophorectomy History of radiofrequency ablation (RFA) procedure for cardiac arrhythmia Hx of appendectomy S/P carpal tunnel release S/P tubal ligation Family History Mother Atrial fibrillation Hypertension Social History Smoking and tobacco status: current every day smoker cigarettes Packs smoked per day: 0.5 Years cigarettes smoked: 30 Alcohol intake: current Alcohol intake frequency: 0-2 Drinks per Day Lives independently: Yes Household members: spouse and family Marital status: service: No Current occupational status: unemployed History of recent travel: No Current gender identity: Female Female Reproductive History: Date of last menstrual period: 07/31/10 Physical Exam Const: COMMON NORMALS: no acute distress and patient oriented x3 GENERAL APPEARANCE: cooperative HENMT: COMMON NORMALS: normocephalic and Normal external nose present HEAD & SCALP: normal to inspection and normocephalic NOSE: Normal external nose present MOUTH: Normal oral and palatal mucosa present Eye: GENERAL EYE: appearance normal, both eyes and all related structures Neck/C-Spine: COMMON NORMALS: full ROM Chest: OTHER: Tenderness on palpation of the left anterior chest wall, no flailing or crepitus is noted in the ribs. Resp: COMMON NORMALS: normal respiratory effort and clear to auscultation bilaterally EFFORT & INSPECTION: Yes able to speak in complete sentences AUSCULTATION: clear to auscultation bilaterally Cardio: COMMON NORMALS: regular rate and regular rhythm RATE: regular rate RHYTHM: regular rhythm GI: COMMON NORMALS: non-tender : COMMON NORMALS: Yes no CVA tenderness BLADDER/KIDNEY EXAM: Yes no CVA tenderness Back/Pelvis: COMMON NORMALS: no CVA tenderness and thoracic and lumbar spine normal to inspection Extremity: COMMON NORMALS: normal to inspection Neuro: COMMON NORMALS: patient oriented x3 and moves all extremities Psych: COMMON NORMALS: mental status grossly normal and cooperative Skin: COMMON NORMALS: no rashes or lesions noted GENERAL SKIN EXAM: no rashes or lesions noted Course Vital Signs: Vital signs: Vital Signs Temperature 98.3 F 03/01/21 15:22 Pulse Rate 95 03/01/21 22:20 Respiratory Rate 17 03/01/21 22:20 Blood Pressure 113/89 03/01/21 22:20 Pulse Oximetry 98 03/01/21 22:20 MDM - SOB/Dyspnea MDM Narrative: Medical decision making narrative: 45-year-old female comes in today with left anterior chest wall pain. On exam patient has tenderness to the left anterior chest. Respirations are even lungs are clear to auscultation. Skin is warm and dry. Vital signs are normal. Differential diagnosis includes but not limited to costochondritis, rib fracture, COVID-19, contusion. X-ray noted no significant abnormality. COVID-19 test was negative. Recommended patient drink plenty of water use NSAID for pain. Patient was given a dose of Toradol and a dose of dexamethasone in the ER. Patient reported understanding of care plan and need for follow-up or return to the ER. Lab Data: Labs: Lab Results 03/01/21 Range/Units 22:13 SARS-CoV-2 Ag (Rap id) Negative (Negative) Discharge Plan Discharge Patient Disposition: Home Clinical Impression: Costochondral chest pain Condition: Stable Prescriptions: New diclofenac potassium 50 mg tablet 50 mg PO Q8H PRN (Reason: pain) Qty: 14 RF: 0 No Action cetirizine [Zyrtec] 10 mg Tablet 10 mg PO BID PRN (Reason: Allergy Symptoms) RF: 0 propranolol 20 mg Tablet 20 mg PO TID 30 Days Qty: 90 RF: 1 fluoxetine 20 mg Capsule 20 mg PO DAILY 30 Days Qty: 30 RF: 1 multivitamin with folic acid [Thera] 400 mcg Tablet 1 tab PO DAILY Qty: 30 RF: 0 ketorolac 10 mg tablet 10 mg PO TID PRN (Reason: pain) Qty: 10 RF: 0 Discharge Orders: Discharge ED (Routine); Ordered 03/01/21 Ordered By: Galdino Sandoval Referrals: Jeni Monsivais MD [Primary Care Provider] - Discharge Diet: Usual diet Discharge Activity: Increase activity as tolerated Patient Instructions: Costochondritis (ED), Opioid Safety Activity Restrictions/Additional Instructions: Use ice or heat to the area for further pain relief. Drink plenty of water with medication. Follow-up with primary care for further instructions. Return to the ER for new concerns. Coding Level of Care Code ED [employer] for [employer] Fwd 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
[2021-03-01] MEDS: ketorolac 30 mg/mL INJ IM (22:17)
[2021-03-01 22:20] VITALS: BP 113/89; PULSE 95; RESP 17; O2SAT 98
[2021-03-01 22:50] LABS: SARS Covid-2 Antigen Negative (Negative)
[2021-03-01 23:09] VITALS: BP 124/92; PULSE 97; RESP 18; O2SAT 94
[2021-03-01] MEDS: dexamethasone 4 mg Tablet 10 MG PO (23:10)
== END 2021-03-01 23:19 | disposition home or self-care (01) ==
PROVIDERS: Physician Assistant; Emergency Provider Nurse Practitioner Family; PCP Family Medicine
DX: R07.89 Other chest pain (principal); I12.9 Hypertensive chronic kidney disease with stage 1 through stage 4 chronic kidney disease, or unspecified chronic kidney disease; N18.2 Chronic kidney disease, stage 2 (mild); Z86.711 Personal history of pulmonary embolism; F17.210 Nicotine dependence, cigarettes, uncomplicated; Z20.822 Contact with and (suspected) exposure to COVID-19
CPT/HCPCS: 71045; 87426; 96372; 99284; J1885; J8540

== ENCOUNTER 2021-03-07 12:15 | Inpatient (IN) | payer SELFPAY ==
[2021-03-07] VITALS (9 sets, daily range): BP systolic 104–122; BP diastolic 75–89; PULSE 79–113; RESP 15–18; TEMP 36.6–36.8; O2SAT 97–100; BMI 20.3
--- NOTE | 2021-03-07 12:27 | W.ED.EXTPRO ---
Documented by User: SALLY Ceja 03/08/21 07:04 HPI - Extremity Problem General: Chief complaint: Extremity Problem,Nontraumatic Stated complaint: left leg pain Time Seen by Provider: 03/07/21 12:23 Source: patient Mode of arrival: ambulatory Limitations: no limitations History of Present Illness: HPI Narrative: Patient is a 45-year-old female who presents to ED today with a complaint of severe left lower extremity pain that initially began 2 days ago. She has not had any injury or trauma to the leg. She has noticed some swelling starting to the medial posterior aspect of her left thigh extending distally down into her calf. Patient does tell me she has a history of a DVT. She states 1 month ago she was taken off of her Xarelto. Patient denies recent surgery, history of cancer, no prolonged periods of inactivity, she is not on hormone therapy. When asked about shortness of breath she tells me she chronically has shortness of breath secondary to smoking. She has noted she has been coughing more frequently. MD Complaint: extremity pain and extremity swelling Onset (ago): day(s) Pain Consistency: constant Location: left and lower extremity Severity scale (1-10): >10 Radiation: none Relieving factors: nothing Exacerbating factors: weight bearing, walking and palpation Associated symptoms: Reports no associated symptoms; Deny chest pain, fever(s) or rash Context: history of DVT Review of Systems Const: Denies: fever(s), chills, body aches, change in appetite, fatigue or malaise Eyes: Denies: change in vision or blurry vision ENMT: Denies: throat pain, odynophagia, nasal discharge or nasal congestion Card: Reports: dyspnea on exertion; Denies: chest pain, palpitations, irregular heart rhythm, edema, lightheadedness, syncope or pre-syncope Resp: Reports: dyspnea, productive cough (chronic from smoking-slightly worse) and chest congestion; Denies: wheezing or hemoptysis GI: Denies: abdominal pain, nausea, vomiting or diarrhea Musc: Reports: extremity pain and extremity swelling; Denies: neck pain, back pain, joint pain, joint redness or joint warmth Skin/Breast: Denies: rash Neuro: Reports: headache(s) and difficulty walking (secondary to L leg pain); Denies: numbness in extremities, weakness in extremities, sensory changes or dizziness PFSH ED PFSH: Medical History Back pain CKD (chronic kidney disease) stage 2, GFR 60-89 ml/min Dyshidrotic hand dermatitis Fibromyalgia GERD (gastroesophageal reflux disease) Gram-negative bacteremia H/O HTN (hypertension) Hypothyroidism (acquired) Macrocytosis Migraine without aura, not intractable, without status migrainosus Nicotine abuse PSVT (paroxysmal supraventricular tachycardia) Pulmonary emboli Recurrent UTI Renal infarct Spinal stenosis, cervical region Transaminitis Vitamin B12 deficiency anemia Vitamin D deficiency Surgical History H/O colonoscopy 2018 - normal History of hysterectomy with bilateral oophorectomy History of radiofrequency ablation (RFA) procedure for cardiac arrhythmia Hx of appendectomy S/P carpal tunnel release S/P tubal ligation Family History Mother Atrial fibrillation Hypertension Social History Smoking and tobacco status: current every day smoker cigarettes Packs smoked per day: 0.5 Years cigarettes smoked: 30 Alcohol intake: current Alcohol intake frequency: 0-2 Drinks per Day Lives independently: Yes Household members: spouse and family Marital status: service: No Current occupational status: unemployed History of recent travel: No Current gender identity: Female Female Reproductive History: Date of last menstrual period: 07/31/10 Physical Exam Const: COMMON NORMALS: patient oriented x3, no limitations and alert GENERAL APPEARANCE: cooperative and in distress (appears very uncomfortable) ORIENTATION/CONSCIOUSNESS: Yes awake, Yes oriented to person, Yes oriented to place and Yes oriented to time HENMT: COMMON NORMALS: normocephalic and atraumatic HEAD & SCALP: normocephalic and atraumatic Resp: COMMON NORMALS: normal respiratory effort Cardio: COMMON NORMALS: regular rhythm RATE: tachycardic RHYTHM: regular rhythm Extremity: COMMON NORMALS: capillary refill normal and no pedal edema GENERAL: Yes calf tenderness OTHER: pt has swelling/firmness noted to L calf and popliteal fossa when compared to R LE; DP/PT pulses intact and cap refill equal bilaterally; no redness/warmth or coolness/pallor noted; sensory appears intact Neuro: COMMON NORMALS: patient oriented x3, moves all extremities, no focal motor deficits and no sensory deficits noted SENSORIUM/ORIENTATION: Yes alert, Yes oriented to person, Yes oriented to place and Yes oriented to time Skin: COMMON NORMALS: no rashes or lesions noted GENERAL SKIN EXAM: no rashes or lesions noted TRAUMA: no lacerations or abrasions Course Vital Signs: Vital signs: Vital Signs Temperature 99.0 F 03/08/21 03:55 Pulse Rate 97 03/08/21 05:41 Respiratory Rate 18 03/08/21 03:55 Blood Pressure 114/79 03/08/21 03:55 Pulse Oximetry 94 03/08/21 03:55 MDM - Extremity (Nontraumatic) MDM Narrative: Medical decision making narrative: Care transferred to Yoshi Pope PA-C pending CTA. She has extensive L LE DVT. Lovenox initiated here. No heart strain noted on EKG. Lab Data: Labs: Lab Results 03/07/21 03/07/21 03/07/21 Range/Units 13:47 13:47 13:47 WBC 9.7 (4.0-10.0) 10^3/ uL RBC 4.29 (4.1-5.3) 10^6/u L Hgb 15.5 H (11.5-15.3) g/dL Hct 46.2 (37.0-47.0) % MCV 107.7 H (81-99) fL MCH 36.1 H (28.0-34.0) pg MCHC 33.5 (30.0-36.0) g/dL RDW 15.9 H (12.1-15.1) % Plt Count 179 (130-400) 10^3/c mm MPV 11.2 H (7.4-10.4) fL Neut % (Auto) 66.5 % Lymph % (Auto) 25.2 % [place] % (Auto) 6.2 % Eos % (Auto) 1.4 % Baso % (Auto) 0.4 % Neut # (Auto) 6.45 (1.8-7.7) 10^3/u L Lymph # (Auto) 2.5 (0.8-4.8) 10^3/u L [place] # (Auto) 0.6 (0.2-0.9) 10^3/u L Eos # (Auto) 0.1 (0.0-0.8) 10^3/u L Baso # (Auto) 0.0 (0.0-0.1) 10^3/u L Nucleated RBC % (a uto) 0 % Nucleated RBCs # 0.0 /100WBC PT 13.90 (12.1-14.9) SECO NDS INR 1.04 (0.8-1.2) APTT 28.7 (23.9-36.7) SECO NDS Sodium 131 L (136-145) mmol/L Potassium 3.5 (3.5-5.1) mmol/L Chloride 92 L (98-107) mmol/L Carbon Dioxide 22 (22-29) mmol/L Anion Gap 20.5 H (5-19) BUN 7 (6-20) mg/dL Creatinine 0.6 (0.5-0.9) mg/dL GFR Calculation 107.6 (90-130) mL/min Glucose 103 (65-115) mg/dL Calculated Osmolal ity 270 L (285-295) mOsm/k g Calcium 8.9 (8.5-10.5) mg/dL Total Bilirubin 1.9 H (0.15-1.2) mg/dL AST 21 (0-32) U/L ALT 18 (0-33) U/L Alkaline Phosphata se 153 H (35-105) IU/L Total Protein 7.7 (6.6-8.7) g/dL Albumin 3.5 (3.5-5.2) g/dL Globulin 4.2 (1.3-4.6) g/dL SARS-CoV-2 Ag (Rap id) (Negative) 03/07/21 Range/Units 14:46 WBC (4.0-10.0) 10^3/ uL RBC (4.1-5.3) 10^6/u L Hgb (11.5-15.3) g/dL Hct (37.0-47.0) % MCV (81-99) fL MCH (28.0-34.0) pg MCHC (30.0-36.0) g/dL RDW (12.1-15.1) % Plt Count (130-400) 10^3/c mm MPV (7.4-10.4) fL Neut % (Auto) % Lymph % (Auto) % [place] % (Auto) % Eos % (Auto) % Baso % (Auto) % Neut # (Auto) (1.8-7.7) 10^3/u L Lymph # (Auto) (0.8-4.8) 10^3/u L [place] # (Auto) (0.2-0.9) 10^3/u L Eos # (Auto) (0.0-0.8) 10^3/u L Baso # (Auto) (0.0-0.1) 10^3/u L Nucleated RBC % (a uto) % Nucleated RBCs # /100WBC PT (12.1-14.9) SECO NDS INR (0.8-1.2) APTT (23.9-36.7) SECO NDS Sodium (136-145) mmol/L Potassium (3.5-5.1) mmol/L Chloride (98-107) mmol/L Carbon Dioxide (22-29) mmol/L Anion Gap (5-19) BUN (6-20) mg/dL Creatinine (0.5-0.9) mg/dL GFR Calculation (90-130) mL/min Glucose (65-115) mg/dL Calculated Osmolal ity (285-295) mOsm/k g Calcium (8.5-10.5) mg/dL Total Bilirubin (0.15-1.2) mg/dL AST (0-32) U/L ALT (0-33) U/L Alkaline Phosphata se (35-105) IU/L Total Protein (6.6-8.7) g/dL Albumin (3.5-5.2) g/dL Globulin (1.3-4.6) g/dL SARS-CoV-2 Ag (Rap id) Negative (Negative) Imaging Data^: US venous L LE: Radiologist's impression: [place] [id number] ReportSigned Patient: Denisa Orourke #: [id number]: 1975Acct#:[id number]/Sex: 45 / FADM Date: 03/07/21Loc: ERRoom/Bed:Attending Dr: Ordering Provider/Ordering MD: Missy Shah Date of Service: 03/07/21 Procedure(s): [place] [address] Accession Number(s): [id number] Report Number: [id number] PROCEDURE INFORMATION: Exam: US Duplex Left Lower Extremity Veins, Limited Exam date and time: 03/07/2021 12:40 PM Age: 45 years old Clinical indication: Pain; Leg, upper and leg, lower; Left; Additional info: Swelling/pain; Previous dvt; Recently dc anticoagulant TECHNIQUE: Imaging protocol: Real-time Duplex ultrasound of the Left Lower Extremity with 2-D ward scale, color Doppler flow and spectral waveform analysis with image documentation. Limited exam focused on the left lower extremity veins. COMPARISON: CT abdomen pelvis w con* [id number] 12/10/2020 6:10 AM FINDINGS: Left deep veins: Extensive partially occlusive thrombus extending proximally from the level of the common femoral vein distally to the level of the popliteal vein and peroneal trunk. Soft tissues: Unremarkable. US/[place] [id number] IMPRESSION: Extensive partially occlusive DVT extending proximally from the level of the left common femoral vein distally to the level of the popliteal vein and peroneal trunk. Dictated By:Christopher Woods DOSigned By:Christopher Woods DOSigned Date/Time:03/07/21 1451DD/ 1450 Discharge Plan Discharge Patient Disposition: Admitted As Inpatient Admit Provider: Hayder Jarrell Clinical Impression: Pulmonary embolism Qualifiers: Pulmonary embolism type: unspecified Chronicity: acute Acute cor pulmonale presence: without acute cor pulmonale Qualified Code(s): I26.99 - Other pulmonary embolism without acute cor pulmonale DVT (deep venous thrombosis) Qualifiers: DVT location: lower extremity Affected thrombotic vein of extremity: femoral Chronicity: acute Laterality: left Qualified Code(s): I82.412 - Acute embolism and thrombosis of left femoral vein Condition: Stable Sign Out Sign Out Data: Patient Sign Out occurred on 03/07/21 at 17:11. Patient's care was discussed, and care was transferred from to SALLY Mix. Coding Level of Care Code ED Mental Health Tech for Chg Fwd Exam Detailed Documented by User: SALLY Mix 03/08/21 03:01 HPI - Extremity Problem General: Chief complaint: Extremity Problem,Nontraumatic Stated complaint: left leg pain Time Seen by Provider: 03/07/21 12:23 PFSH ED PFSH: Medical History Back pain CKD (chronic kidney disease) stage 2, GFR 60-89 ml/min Dyshidrotic hand dermatitis Fibromyalgia GERD (gastroesophageal reflux disease) Gram-negative bacteremia H/O HTN (hypertension) Hypothyroidism (acquired) Macrocytosis Migraine without aura, not intractable, without status migrainosus Nicotine abuse PSVT (paroxysmal supraventricular tachycardia) Pulmonary emboli Recurrent UTI Renal infarct Spinal stenosis, cervical region Transaminitis Vitamin B12 deficiency anemia Vitamin D deficiency Surgical History H/O colonoscopy 2018 - normal History of hysterectomy with bilateral oophorectomy History of radiofrequency ablation (RFA) procedure for cardiac arrhythmia Hx of appendectomy S/P carpal tunnel release S/P tubal ligation Family History Mother Atrial fibrillation Hypertension Social History Smoking and tobacco status: current every day smoker cigarettes Packs smoked per day: 0.5 Years cigarettes smoked: 30 Alcohol intake: current Alcohol intake frequency: 0-2 Drinks per Day Lives independently: Yes Household members: spouse and family Marital status: service: No Current occupational status: unemployed History of recent travel: No Current gender identity: Female Course Consultations: Consultation #1: I contacted the hospitalist Dr. Jarrell and told outpatient case and the CT findings. He agreed to have patient admitted to the hospital. Vital Signs: Vital signs: Vital Signs Temperature 99.0 F 03/08/21 03:55 Pulse Rate 97 08/09/21 05:41 Respiratory Rate 18 03/08/21 03:55 Blood Pressure 114/79 03/08/21 03:55 Pulse Oximetry 94 03/08/21 03:55 MDM - Extremity (Nontraumatic) MDM Narrative: Medical decision making narrative: I took over patient case from Missy Shah the physician medical library assistant. She performed the initial history physical exam lab and imaging work-up. Patient came into the ED with left leg pain and a ultrasound venous duplex was done of left lower extremity and it showed a an extensive partially occlusive DVT extending from the left common femoral vein to the popliteal vein and peroneal trunk. CTA of chest showed bilateral nonocclusive pulmonary emboli with wedge-shaped opacities at lung bases likely related to pulmonary infarcts. No right heart strain seen. I talked with Dr. Diggs about patient case and he thought patient should be admitted. While here in the ED patient was started on Lovenox and I contacted Dr. Jarrell and he agreed to have patient admitted into the hospital. Dr. Diggs placed the admitting orders. Lab Data: Attestation: I reviewed the patient's lab results. Labs: Lab Results 03/07/21 03/07/21 03/07/21 Range/Units 13:47 13:47 13:47 WBC 9.7 (4.0-10.0) 10^3/ uL RBC 4.29 (4.1-5.3) 10^6/u L Hgb 15.5 H (11.5-15.3) g/dL Hct 46.2 (37.0-47.0) % MCV 107.7 H (81-99) fL MCH 36.1 H (28.0-34.0) pg MCHC 33.5 (30.0-36.0) g/dL RDW 15.9 H (12.1-15.1) % Plt Count 179 (130-400) 10^3/c mm MPV 11.2 H (7.4-10.4) fL Neut % (Auto) 66.5 % Lymph % (Auto) 25.2 % [place] % (Auto) 6.2 % Eos % (Auto) 1.4 % Baso % (Auto) 0.4 % Neut # (Auto) 6.45 (1.8-7.7) 10^3/u L Lymph # (Auto) 2.5 (0.8-4.8) 10^3/u L [place] # (Auto) 0.6 (0.2-0.9) 10^3/u L Eos # (Auto) 0.1 (0.0-0.8) 10^3/u L Baso # (Auto) 0.0 (0.0-0.1) 10^3/u L Nucleated RBC % (a uto) 0 % Nucleated RBCs # 0.0 /100WBC PT 13.90 (12.1-14.9) SECO NDS INR 1.04 (0.8-1.2) APTT 28.7 (23.9-36.7) SECO NDS Sodium 131 L (136-145) mmol/L Potassium 3.5 (3.5-5.1) mmol/L Chloride 92 L (98-107) mmol/L Carbon Dioxide 22 (22-29) mmol/L Anion Gap 20.5 H (5-19) BUN 7 (6-20) mg/dL Creatinine 0.6 (0.5-0.9) mg/dL GFR Calculation 107.6 (90-130) mL/min Glucose 103 (65-115) mg/dL Calculated Osmolal ity 270 L (285-295) mOsm/k g Calcium 8.9 (8.5-10.5) mg/dL Total Bilirubin 1.9 H (0.15-1.2) mg/dL AST 21 (0-32) U/L ALT 18 (0-33) U/L Alkaline Phosphata se 153 H (35-105) IU/L Total Protein 7.7 (6.6-8.7) g/dL Albumin 3.5 (3.5-5.2) g/dL Globulin 4.2 (1.3-4.6) g/dL SARS-CoV-2 Ag (Rap id) (Negative) 03/07/21 Range/Units 14:46 WBC (4.0-10.0) 10^3/ uL RBC (4.1-5.3) 10^6/u L Hgb (11.5-15.3) g/dL Hct (37.0-47.0) % MCV (81-99) fL MCH (28.0-34.0) pg MCHC (30.0-36.0) g/dL RDW (12.1-15.1) % Plt Count (130-400) 10^3/c mm MPV (7.4-10.4) fL Neut % (Auto) % Lymph % (Auto) % [place] % (Auto) % Eos % (Auto) % Baso % (Auto) % Neut # (Auto) (1.8-7.7) 10^3/u L Lymph # (Auto) (0.8-4.8) 10^3/u L [place] # (Auto) (0.2-0.9) 10^3/u L Eos # (Auto) (0.0-0.8) 10^3/u L Baso # (Auto) (0.0-0.1) 10^3/u L Nucleated RBC % (a uto) % Nucleated RBCs # /100WBC PT (12.1-14.9) SECO NDS INR (0.8-1.2) APTT (23.9-36.7) SECO NDS Sodium (136-145) mmol/L Potassium (3.5-5.1) mmol/L Chloride (98-107) mmol/L Carbon Dioxide (22-29) mmol/L Anion Gap (5-19) BUN (6-20) mg/dL Creatinine (0.5-0.9) mg/dL GFR Calculation (90-130) mL/min Glucose (65-115) mg/dL Calculated Osmolal ity (285-295) mOsm/k g Calcium (8.5-10.5) mg/dL Total Bilirubin (0.15-1.2) mg/dL AST (0-32) U/L ALT (0-33) U/L Alkaline Phosphata se (35-105) IU/L Total Protein (6.6-8.7) g/dL Albumin (3.5-5.2) g/dL Globulin (1.3-4.6) g/dL SARS-CoV-2 Ag (Rap id) Negative (Negative) Imaging Data^: CTA Chest: Attestation: I personally reviewed and interpreted this imaging study as follows: Radiologist's impression: [employer] [place] [address] CT Scan Report Signed Patient: Denisa Orourke Unit #: [id number] : 1975 Age/Sex: 45 / F ADM Date: 03/07/21 Loc: ER Room/Bed: Attending Dr: Ordering Provider/Ordering MD: Missy Shah Date of Service: 03/07/21 Procedure(s): CT angio chest PE protcl [id number] Accession Number(s): [id number] Report Number: [id number] PROCEDURE INFORMATION: Exam: CTA Chest With Contrast Exam date and time: 03/07/2021 2:26 PM Age: 45 years old Clinical indication: Abnormal findings; Other: Doppler; Patient HX: Tachy w lle dvt; Additional info: Extensive L le dvt; Tachycardia TECHNIQUE: Imaging protocol: Computed tomographic angiography of the chest with contrast. 3D rendering (Not supervised by radiologist): MIP and/or 3D reconstructed images were created by the technologist. Radiation optimization: All CT scans at this facility use at least one of these dose optimization techniques: automated exposure control; mA and/or kV adjustment per patient size (includes targeted exams where dose is matched to clinical indication); or iterative reconstruction. Contrast material: OMNI 350; Contrast volume: 56 ml; Contrast route: INTRAVENOUS (IV); COMPARISON: CT angio chest PE protcl [id number] 10/09/2020 3:36 PM RADIATION DOSE METRICS: Total DLP (mGy-cm): 437.2 FINDINGS: Pulmonary arteries: Long segment of nonocclusive pulmonary emboli within the descending left lobar branch extending into a several segmental basilar branches. There is also nonocclusive pulmonary emboli within the right lobar branches of descending inter lobar pulmonary artery extending into subsegmental basilar branches. Aorta: Unremarkable. No aortic aneurysm. No aortic dissection. Lungs: Wedge-shaped consolidations at the posterior lung bases are suspicious for pulmonary infarcts given the above findings. Pleural spaces: Unremarkable. No pneumothorax. No pleural effusion. Heart: RV:LV ratio equals 0.9 with no evidence of right heart strain. Lymph nodes: Unremarkable. No enlarged lymph nodes. Bones/joints: No acute fracture. Soft tissues: Unremarkable. CT/CT angio chest PE protcl [id number] IMPRESSION: Bilateral nonocclusive pulmonary emboli within the lobar branches extending into several segmental branches. Wedge-shaped opacities at the lung bases likely relate to pulmonary infarcts. No evidence of right heart strain. Radiation Dose CTDIVOL = (mGy): DLP = 437.2 (mGy-cm) Dictated By: Christopher Woods DO Signed By: Christopher Woods DO Signed Date/Time: 03/07/211727 DD/ 25 Discharge Plan Discharge Patient Disposition: Admitted As Inpatient Admit Provider: Hayder Jarrell Clinical Impression: Pulmonary embolism Qualifiers: Pulmonary embolism type: unspecified Chronicity: acute Acute cor pulmonale presence: without acute cor pulmonale Qualified Code(s): I26.99 - Other pulmonary embolism without acute cor pulmonale DVT (deep venous thrombosis) Qualifiers: DVT location: lower extremity Affected thrombotic vein of extremity: femoral Chronicity: acute Laterality: left Qualified Code(s): I82.412 - Acute embolism and thrombosis of left femoral vein Condition: Stable Sign Out Sign Out Data: Patient Sign Out occurred on 03/07/21 at 17:11. Patient's care was discussed, and care was transferred from to SALLY Mix. Coding Level of Care Code ED Mental Health Tech for Apryl Fwd Exam Detailed
--- NOTE | 2021-03-07 12:40 | USR_ITS ---
PROCEDURE INFORMATION: Exam: US Duplex Left Lower Extremity Veins, Limited Exam date and time: 03/07/2021 12:40 PM Age: 45 years old Clinical indication: Pain; Leg, upper and leg, lower; Left; Additional info: Swelling/pain; Previous dvt; Recently dc anticoagulant TECHNIQUE: Imaging protocol: Real-time Duplex ultrasound of the Left Lower Extremity with 2-D ward scale, color Doppler flow and spectral waveform analysis with image documentation. Limited exam focused on the left lower extremity veins. COMPARISON: CT abdomen pelvis w con* [id number] 12/10/2020 6:10 AM FINDINGS: Left deep veins: Extensive partially occlusive thrombus extending proximally from the level of the common femoral vein distally to the level of the popliteal vein and peroneal trunk. Soft tissues: Unremarkable. US/CV venous duplex [facility] [id number] IMPRESSION: Extensive partially occlusive DVT extending proximally from the level of the left common femoral vein distally to the level of the popliteal vein and peroneal trunk.
--- NOTE | 2021-03-07 12:48 | PC.NURSE ---
I agree with assessment by THRESHING MACHINE OPERATOR
[2021-03-07] MEDS: morphine 4 mg/mL SDV 1 mL IM (13:35)
[2021-03-07 13:54] LABS: Basophils % 0.4 %; Eosinophils # 0.1 10^3/uL (0.0-0.8); Eosinophils % 1.4 %; Hematocrit 46.2 % (37.0-47.0); Hemoglobin 15.5 g/dL (11.5-15.3); Lymphocytes # 2.5 10^3/uL (0.8-4.8); Lymphocytes % 25.2 %; Mean Corpuscular HGB Conc 33.5 g/dL (30.0-36.0); Mean Corpuscular Hemoglobin 36.1 pg (28.0-34.0); Mean Corpuscular Volume 107.7 fL (81-99); Mean Platelet Volume 11.2 fL (7.4-10.4); Monocytes # 0.6 10^3/uL (0.2-0.9); Monocytes % 6.2 %; Neutrophils # 6.45 10^3/uL (1.8-7.7); Neutrophils % 66.5 %; Nucleated Red Blood Cells % 0 %; Platelet Count 179 10^3/cmm (130-400); Red Blood Count 4.29 10^6/uL (4.1-5.3); Red Cell Distribution Width 15.9 % (12.1-15.1); White Blood Count 9.7 10^3/uL (4.0-10.0)
[2021-03-07 14:17] LABS: INR 1.04 (0.8-1.2)
[2021-03-07 14:18] LABS: Partial Thromboplastin Time 28.7 SECONDS (23.9-36.7)
[2021-03-07 14:26] LABS: Alanine Aminotransferase 18 U/L (0-33); Albumin Level 3.5 g/dL (3.5-5.2); Alkaline Phosphatase 153 IU/L (35-105); Anion Gap 20.5 (5-19); Aspartate Amino Transferase 21 U/L (0-32); Blood Urea Nitrogen 7 mg/dL (6-20); Calcium 8.9 mg/dL (8.5-10.5); Carbon Dioxide 22 mmol/L (22-29); Chloride 92 mmol/L (98-107); Globulin 4.2 g/dL (1.3-4.6); Glomerular Filtration Rate 107.6 mL/min (90-130); Glucose 103 mg/dL (65-115); Osmolality Calculated 270 mOsm/kg (285-295); Potassium 3.5 mmol/L (3.5-5.1); Sodium 131 mmol/L (136-145); Total Bilirubin 1.9 mg/dL (0.15-1.2); Total Protein 7.7 g/dL (6.6-8.7)
--- NOTE | 2021-03-07 14:26 | CTR_ITS ---
PROCEDURE INFORMATION: Exam: CTA Chest With Contrast Exam date and time: 03/07/2021 2:26 PM Age: 45 years old Clinical indication: Abnormal findings; Other: Doppler; Patient HX: Tachy w lle dvt; Additional info: Extensive L le dvt; Tachycardia TECHNIQUE: Imaging protocol: Computed tomographic angiography of the chest with contrast. 3D rendering (Not supervised by radiologist): MIP and/or 3D reconstructed images were created by the technologist. Radiation optimization: All CT scans at this facility use at least one of these dose optimization techniques: automated exposure control; mA and/or kV adjustment per patient size (includes targeted exams where dose is matched to clinical indication); or iterative reconstruction. Contrast material: OMNI 350; Contrast volume: 56 ml; Contrast route: INTRAVENOUS (IV); COMPARISON: CT angio chest PE protcl [id number] 10/09/2020 3:36 PM RADIATION DOSE METRICS: Total DLP (mGy-cm): 437.2 FINDINGS: Pulmonary arteries: Long segment of nonocclusive pulmonary emboli within the descending left lobar branch extending into a several segmental basilar branches. There is also nonocclusive pulmonary emboli within the right lobar branches of descending inter lobar pulmonary artery extending into subsegmental basilar branches. Aorta: Unremarkable. No aortic aneurysm. No aortic dissection. Lungs: Wedge-shaped consolidations at the posterior lung bases are suspicious for pulmonary infarcts given the above findings. Pleural spaces: Unremarkable. No pneumothorax. No pleural effusion. Heart: RV:LV ratio equals 0.9 with no evidence of right heart strain. Lymph nodes: Unremarkable. No enlarged lymph nodes. Bones/joints: No acute fracture. Soft tissues: Unremarkable. CT/CT angio chest PE protcl [id number] IMPRESSION: Bilateral nonocclusive pulmonary emboli within the lobar branches extending into several segmental branches. Wedge-shaped opacities at the lung bases likely relate to pulmonary infarcts. No evidence of right heart strain. Radiation Dose CTDIVOL = (mGy): DLP = 437.2 (mGy-cm)
[2021-03-07] MEDS: morphine 4 mg/mL SDV 1 mL IVP (15:17)
[2021-03-07 15:35] LABS: SARS Covid-2 Antigen Negative (Negative)
--- NOTE | 2021-03-07 16:24 | ECG_ITS ---
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 Measurements Intervals [place] Rate: 95 P: 42 [place]: 160 QRS: -1 QRSD: 86 T: 68 QT: 365 QTc: 460 Interpretive Statements SINUS RHYTHM POSSIBLE RIGHT VENTRICULAR CONDUCTION DELAY [RSR (QR) IN V1/V2] SEPTAL MYOCARDIAL INFARCTION [40+ ms Q WAVE IN V1/V2], OF INDETERMINATE AGE Compared to ECG 10/25/2020 20:25:23 Myocardial infarct finding now present T-wave abnormality no longer present Possible ischemia no longer present Electronically Signed On 03-08-2021 17:39:09 CDT by Troy Garcia M.D. [id number]
[2021-03-07] MEDS: iohexol 350 mg/mL 100 mL Btl IV (16:46)
[2021-03-07] MEDS: LORazepam 2 mg/mL INJ 1 mL 1 MG IVP (17:34)
[2021-03-07] MEDS: sodium chloride 0.9% 1,000 ML 999 ML IV (17:35)
[2021-03-07] MEDS: enoxaparin 60 mg/0.6 mL Syringe SUBCUT (18:11)
--- NOTE | 2021-03-07 18:47 | ECG_ITS ---
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 Measurements Intervals [employer] Rate: 93 P: 34 MD: 144 QRS: 4 QRSD: 91 T: 55 QT: 384 QTc: 480 Interpretive Statements SINUS RHYTHM POSSIBLE RIGHT VENTRICULAR CONDUCTION DELAY [RSR (QR) IN V1/V2] SEPTAL MYOCARDIAL INFARCTION [40+ ms Q WAVE IN V1/V2], OF INDETERMINATE AGE Compared to ECG 03/07/2021 16:35:08 No significant changes Electronically Signed On 03-08-2021 17:28:57 CDT by Troy Garcia M.D. [id number]
--- NOTE | 2021-03-07 18:50 | P.HP_ITS ---
Providers/Chief Complaint Primary Care Provider: Jeni Monsivais MD Chief Complaint: left leg pain History of Present Illness Denisa Orourke is a 45 year old female with a past medical history of DVT and bilateral pulmonary emboli off anticoagulation Xarelto, diastolic CHF, history of alcohol abuse, history of PSVT, GERD, hypertension, history of S4-S5 fracture, history of thrombocytopenia, history of leukopenia and neutropenia, history of bone marrow suppression from possible alcohol consumption, history of pyelonephritis, history of recurrent UTIs, history of fatty liver disease, history of depression, anxiety, who presents to [facility] for left leg swelling. Patient tells me that 2 days ago, she started to develop left leg swelling, the leg leg swelling became much more severe, she had difficulty ambulating, some slight shortness of breath, no chest pain, no palpitations, lightness, dizziness, recent travel, no known exposure to COVID-19, has not received COVID-19 vaccinations, no recent surgeries, no history of malignancy, no history of hypercoagulability. She does have a history of DVT and PE, she was on Xarelto, she is vague in why it was stopped, but it sounds like she finished anticoagulant therapy so stopped after a year. In the emergency room patient was found to have an occlusive left lower extremity DVT, bilateral pulmonary emboli, currently tachycardic, no chest pain, normotensive, not req uiring room air, only complaint is of severe left lower extremity swelling and pain Review of Systems Const: Denies: fever(s), chills, fatigue or malaise Eyes: Denies: change in vision or blurry vision ENMT: Denies: nasal congestion Card: Denies: chest pain, palpitations or irregular heart rhythm Resp: Denies: dyspnea, productive cough, non-productive cough or wheezing GI: Denies: abdominal pain, nausea, vomiting, hematemesis, diarrhea, constipation, hematochezia or melena : Denies: flank pain, dysuria or urinary frequency Musc: Denies: neck pain or back pain Skin/Breast: Denies: rash Neuro: Denies: headache(s), dizziness or vertigo Psych: Denies: anxiety or depression Endo: Denies: polyuria or polydipsia Medications/Allergies Home Medications Medication Instructions Recorded Confirmed Last Taken Type cetirizine [Zyrtec] 10 mg PO BID PRN 01/04/20 03/07/21 12/09/20 History multivitamin with folic acid 1 tab PO DAILY #30 tab 12/11/20 03/07/21 03/06/21 Rx [Thera] ketorolac 10 mg PO TID PRN #10 tab 02/07/21 03/07/21 Unknown Rx Allergies Allergy/AdvReac Type Severity Reaction Status Date / Time Sulfa (Sulfonamide Allergy Intermediate ALGY-Rash Verified 12/29/20 15:47 Antibiotics) methocarbamol [From Robaxin] Allergy Mild ADR-Itching Verified 12/29/20 15:47 acetaminophen [From Percocet] Allergy ALGY-Swell Verified 12/29/20 15:47 Lip/Tongue/Throat amoxicillin [From Augmentin] Allergy swelling Verified 12/29/20 15:47 azithromycin [From Zithromax] Allergy ADR-Itching Verified 12/29/20 15:47 clavulanic acid Allergy swelling Verified 12/29/20 15:47 [From Augmentin] clindamycin [From Cleocin] Allergy ALGY-Rash Verified 12/29/20 15:47 codeine Allergy ADR-Itching Verified 12/29/20 15:47 cyclobenzaprine Allergy ADR-Swelling Verified 12/29/20 15:47 [From Flexeril] of the Eye Egg Derived Allergy ADR-Vomitin Verified 12/29/20 15:47 g hydrocodone Allergy ALGY-Swell Verified 12/29/20 15:47 Lip/Tongue/Throat hydroxyzine Allergy ALGY-Hives Verified 12/29/20 15:47 loratadine [From Claritin] Allergy Unknown Verified 12/29/20 15:47 oxycodone [From Percocet] Allergy ALGY-Swell Verified 12/29/20 15:47 Lip/Tongue/Throat tizanidine Allergy ADR-Itching Verified 12/29/20 15:47 tramadol Allergy ALGY-Rash Verified 12/29/20 15:47 PFSH Acute PFSH: Medical History Back pain CKD (chronic kidney disease) stage 2, GFR 60-89 ml/min Dyshidrotic hand dermatitis Fibromyalgia GERD (gastroesophageal reflux disease) Gram-negative bacteremia H/O HTN (hypertension) Hypothyroidism (acquired) Macrocytosis Migraine without aura, not intractable, without status migrainosus Nicotine abuse PSVT (paroxysmal supraventricular tachycardia) Pulmonary emboli Recurrent UTI Renal infarct Spinal stenosis, cervical region Transaminitis Vitamin B12 deficiency anemia Vitamin D deficiency Surgical History H/O colonoscopy 2018 - normal History of hysterectomy with bilateral oophorectomy History of radiofrequency ablation (RFA) procedure for cardiac arrhythmia Hx of appendectomy S/P carpal tunnel release S/P tubal ligation Family History Mother Atrial fibrillation Hypertension Social History Smoking and tobacco status: current every day smoker cigarettes Packs smoked per day: 0.5 Years cigarettes smoked: 30 Alcohol intake: current Alcohol intake frequency: 0-2 Drinks per Day Lives independently: Yes Household members: spouse and family Marital status: service: No Current occupational status: unemployed History of recent travel: No Current gender identity: Female Female Reproductive History: Date of last menstrual period: 07/31/10 Vitals/I&O/Wt Last Vital Signs Temp 98.2 F 03/07/21 12:21 Pulse 102 H 03/07/21 17:38 Resp 18 03/07/21 17:38 BP 122/89 03/07/21 17:38 Pulse Ox 99 03/07/21 17:38 Weight last 48 hrs Weight 62.596 kg Physical Exam Const: COMMON NORMALS: no acute distress and patient oriented x3 GENERAL APPEARANCE: comfortable Eye: COMMON NORMALS: Equal, round and reactive pupils present and EOMs intact bilaterally GENERAL EYE: appearance normal, both eyes and all related structures PUPIL: Yes Equal, round and reactive pupils present Neck/C-Spine: COMMON NORMALS: full ROM and no JVD THYROID: Thyroid normal Lymph: LYMPHATIC: no lymphadenopathy noted Resp: COMMON NORMALS: normal respiratory effort, No retractions, No use of accessory muscles and clear to auscultation bilaterally AUSCULTATION: clear to auscultation bilaterally Cardio: COMMON NORMALS: regular rate, regular rhythm, S1 normal heart sound present, S2 normal heart sound present, No gallops present (Cardio), No clicks present (Cardio) and No murmurs present (Cardio) RATE: regular rate RHYTHM: regular rhythm HEART SOUNDS: S1 normal heart sound present and S2 normal heart sound present GI: COMMON NORMALS: Normal to inspection, nondistended, normoactive bowel sounds present, Soft to palpation, non-tender and No hepatosplenomegaly present PALPATION: Yes Soft to palpation and Yes No hepatosplenomegaly present Extremity: NARRATIVE EXTREMITY EXAM: Left lower extremity pain, swelling, warmth, edema extending from the left lower calf, up to the left knee Neuro: COMMON NORMALS: patient oriented x3, CN's II-XII intact bilaterally, moves all extremities and no focal motor deficits Psych: COMMON NORMALS: mental status grossly normal, Normal thought process present and cooperative THOUGHT PROCESS: Normal thought process present Data : 03/07/21 13:47 03/07/21 13:47 A&P Assessment and plan (1) DVT (deep vein thrombosis) in : -US LLE Extensive partially occlusive DVT extending proximally from the level of the left common femoral vein distally to the level of the popliteal vein and peroneal trunk. -CTA Bilateral nonocclusive pulmonary emboli within the lobar branches extending into several segmental branches. Wedge-shaped opacities at the lung bases likely relate to pulmonary infarcts. No evidence of right heart strain. -Currently not requiring oxygen, tachycardic heart rates in the 100s, normotensive, complaining of left lower extremity pain Plan: -Admit to general medical floors -Telemetry monitoring -Serial troponins -Therapeutic Lovenox -Monitor respiratory status -PT OT -Cardiac echo -Etiology is unclear, she did have a history of DVT and PE in the past, which perhaps was secondary to immobility from her sacral fracture, sounds like her anticoagulation was stopped after a year, but now she returns with extensive pulmonary emboli, no personal history of cancer, no family history of cancer, no history of hypercoagulability, history of Covid, no history of immobility, no history of surgery -We will perform hypercoagulability panel, will have patient follow-up with oncology -Patient has suffered thrombocytopenia, neutropenia in the past, second to bone marrow suppression secondary to alcohol consumption we will have to monitor her platelet count carefully as she is on anticoagulant therapy -Given how significant her left lower extremity DVT is, we will have to monitor closely for post embolic syndrome, if her pain and swelling worsens, might have to consider consultation with vascular surgery -CIWA protocol, last alcohol drink was 3 days ago, half pint of Nelson Tadeo -Full code -Lovenox for DVT prophylaxis Status: Acute (2) Pulmonary embolism: Status: Acute (3) CKD (chronic kidney disease) stage 2, GFR 60-89 ml/min: Status: Acute (4) Alcohol abuse: Status: Acute (5) Pulmonary infarct: Status: Acute Attestations Medical Necessity Statement*: Patient requires hospitalization, inpatient, greater than 2 midnights, for pulmonary infarct, bilateral pulmonary emboli, partially occlusive left lower extremity DVT Coding Level of Care Code 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
[2021-03-07 19:44] LABS: Troponin(5th) Baseline 7 ng/L (0-10)
[2021-03-07 19:58] LABS: Folate Level 3.1 ng/mL (4.8-37.3)
[2021-03-07 19:59] LABS: C Reactive Protein 103.9 mg/L (0.0-4.9); NT Pro B Type Natriuretic Pept 95 pg/mL (0-125); Thyroid Stimulating Hormone 3.29 uIU/mL (0.27-4.20); Vitamin B12 150 pg/mL (232-1245)
[2021-03-07] MEDS: morphine 4 mg/mL SDV 1 mL 2 MG IVP (20:03)
[2021-03-07 20:05] LABS: Alcohol Level < 10 mg/dL (0-10)
[2021-03-07 20:06] LABS: LAB Peripheral Smear Sent for Review
[2021-03-07 20:17] LABS: Erythrocyte Sedimentation Rate 47 mm/hr (0-15)
--- NOTE | 2021-03-07 20:44 | ECG_ITS ---
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 Measurements Intervals [place] Rate: 90 P: 17 OK: 158 QRS: -7 QRSD: 86 T: 17 QT: 378 QTc: 463 Interpretive Statements SINUS RHYTHM POSSIBLE RIGHT VENTRICULAR CONDUCTION DELAY [RSR (QR) IN V1/V2] SEPTAL MYOCARDIAL INFARCTION [40+ ms Q WAVE IN V1/V2], OF INDETERMINATE AGE Compared to ECG 03/07/2021 18:54:38 No significant changes Electronically Signed On 03-08-2021 17:36:11 CDT by Troy Garcia M.D. [email or web address]
--- NOTE | 2021-03-07 21:29 | PC.NURSE ---
sprite provided per patient request. pt has diet order in place for regular diet.
--- NOTE | 2021-03-07 21:37 | PC.NURSE ---
report called to Esperanza
[2021-03-07 22:00] LABS: Troponin 5 2HR 6.59 ng/L (0-10)
[2021-03-07 22:01] LABS: Troponin 5 2HR Delta -0.41 ABS# (0-10)
[2021-03-07] MEDS: LORazepam 2 mg/mL INJ 1 mL IVP (23:52)
[2021-03-08] VITALS (12 sets, daily range): BP systolic 101–120; BP diastolic 71–81; PULSE 88–100; RESP 16–18; TEMP 37.1–37.6; O2SAT 93–98
[2021-03-08 02:36] LABS: Troponin 5 6HR 7.39 ng/L (0-10); Troponin 5 6HR Delta 0.39 ng/L (0-12)
[2021-03-08] MEDS: morphine 4 mg/mL SDV 1 mL 2 MG IVP ×3 (03:50→18:39)
[2021-03-08] MEDS: enoxaparin 60 mg/0.6 mL Syringe SUBCUT ×2 (03:51→16:49)
[2021-03-08 04:08] LABS: Add Urine Microscopic? YES; Bilirubin Urine 1+ (Negative); Blood Urine 2+ (Negative); Glucose Urine UA Norm (Normal); Ketones Urine 1+ (Negative); Leukocyte Esterase Urine 1+ (Negative); Nitrate Urine Negative (Negative); Protein Urine Neg (Negative); Specific Gravity, Urine 1.005 (1.005-1.030); Urine Appearance SL Hazy (CLEAR); Urine Color Yellow (Yellow); Urobilinogen Urine 4+ mg/dL (Negative); pH Urine 7 (5-7)
[2021-03-08 04:13] LABS: Add Urine Culture? Yes; Bacteria Urine 4+ /hpf; RBC Urine 0-4 /hpf (0-2); WBC Urine 40-55 /hpf (0-5)
[2021-03-08 05:22] LABS: Amphetamines Screen Urine Negative (Negative); Barbiturates Screen Urine Negative (Negative); Benzodiazepines Screen Urine Positive (Negative); Cocaine Screen Urine Negative (Negative); Opiate Screen Urine Positive (Negative); PCP Screen Urine Negative (Negative); THC Screen Urine Negative (Negative)
[2021-03-08] MEDS: multivitamin therapeutic Tablet 1 TAB PO (07:47)
[2021-03-08] MEDS: famotidine 20 mg Tablet PO ×2 (07:48→16:49)
[2021-03-08] MEDS: thiamine 100 mg Tablet PO (07:48)
[2021-03-08] MEDS: folic acid 1 mg Tablet PO (07:48)
[2021-03-08] MEDS: LORazepam 2 mg Tablet PO ×2 (07:54→18:39)
[2021-03-08] MEDS: cyanocobalamin 1,000 mcg Tablet 1000 MCG PO (10:24)
[2021-03-08] MEDS: ciprofloxacin 500 mg Tablet 250 MG PO ×2 (10:24→20:47)
--- NOTE | 2021-03-08 10:55 | PC.OT ---
OT NOTE: DUE TO SEVERE LE DVT AND RECENT START OF ANTICOAGULATION, WILL HOLD EVALUATION FOR TODAY. WILL ATTEMPT TOMORROW
--- NOTE | 2021-03-08 12:49 | PC.PT ---
Physical therapy evaluation deferred due to extensive DVT, in addition to PEs; will attempt tomorrow, after discussion with nursing and physician
--- NOTE | 2021-03-08 12:55 | PM.PN ---
Subjective Subjective: Interval history: Patient was seen this morning, she continues to have pain in the left lower extremity, trouble with ambulation, but is doing better, no chest pain, no shortness of breath, no lightheadedness, no dizziness, Vitals/I&O/Wt Last Vital Signs Temp 98.7 F 03/08/21 11:28 Pulse 88 03/08/21 11:28 Resp 18 03/08/21 11:28 BP 101/72 03/08/21 11:28 Pulse Ox 98 03/08/21 11:28 03/07/21 03/08/21 03/08/21 22:59 06:59 14:59 Intake Total 1000 / 1000 320 / 1320 240 / 240 Output Total 200 / 200 Balance 1000 / 1000 120 / 1120 240 / 240 Weight last 48 hrs Weight 62.596 kg Physical Exam Const: COMMON NORMALS: no acute distress Resp: COMMON NORMALS: normal respiratory effort, No retractions, No use of accessory muscles and clear to auscultation bilaterally AUSCULTATION: clear to auscultation bilaterally Cardio: COMMON NORMALS: regular rate, regular rhythm, S1 normal heart sound present, S2 normal heart sound present and No murmurs present (Cardio) RATE: regular rate RHYTHM: regular rhythm HEART SOUNDS: S1 normal heart sound present and S2 normal heart sound present GI: COMMON NORMALS: Normal to inspection, nondistended, normoactive bowel sounds present, Soft to palpation and non-tender PALPATION: Yes Soft to palpation Extremity: NARRATIVE EXTREMITY EXAM: Left lower extremity pain, swelling, warmth, edema extending from the left lower calf, up to the left knee Data : 03/07/21 13:47 03/07/21 13:47 A&P Assessment and plan (1) DVT (deep vein thrombosis) in : -US LLE Extensive partially occlusive DVT extending proximally from the level of the left common femoral vein distally to the level of the popliteal vein and peroneal trunk. -CTA Bilateral nonocclusive pulmonary emboli within the lobar branches extending into several segmental branches. Wedge-shaped opacities at the lung bases likely relate to pulmonary infarcts. No evidence of right heart strain. -Echocardiogram shows an EF of 67%, no regional wall motion abnormalities, grade 1 out of 4 diastolic dysfunction -Currently not requiring oxygen, tachycardia is resolved, normotensive, complaining of left lower extremity pain Plan: -Admit to general medical floors -Telemetry monitoring -Therapeutic Lovenox -Monitor respiratory status -PT OT -Etiology is unclear, she did have a history of DVT and PE in the past, which perhaps was secondary to immobility from her sacral fracture, sounds like her anticoagulation was stopped after a year, but now she returns with extensive pulmonary emboli, no personal history of cancer, no family history of cancer, no history of hypercoagulability, history of Covid, no history of immobility, no history of surgery -We will perform hypercoagulability panel, will have patient follow-up with oncology -Patient has suffered thrombocytopenia, neutropenia in the past, second to bone marrow suppression secondary to alcohol consumption we will have to monitor her platelet count carefully as she is on anticoagulant therapy -Given how significant her left lower extremity DVT is, we will have to monitor closely for post embolic syndrome, if her pain and swelling worsens, might have to consider consultation with vascular surgery -CIWA protocol, last alcohol drink was 3 days ago, half pint of Nelson Tadeo -Cyanocobalamin for B12 deficiency -Folic acid for folic acid deficiency -Ciprofloxacin for UTI -Full code -Lovenox for DVT prophylaxis Status: Acute (2) Pulmonary embolism: Status: Acute (3) CKD (chronic kidney disease) stage 2, GFR 60-89 ml/min: Status: Acute (4) Alcohol abuse: Status: Acute (5) Pulmonary infarct: Status: Acute (6) Vitamin B12 deficiency anemia: Status: Acute (7) Folic acid deficiency: Status: Acute (8) UTI (urinary tract infection): Status: Acute Attestations Medical Necessity Statement*: Patient requires hospitalization for left lower extremity DVT, pulmonary emboli, B12 deficiency, folic acid deficiency, pulmonary infarct, UTI Coding Level of Care Code Acute [employer] [facility] for [facility] 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 Vitamin B12 deficiency anemia D51.9 Folic acid deficiency E53.8 UTI (urinary tract infection) N39.0
--- NOTE | 2021-03-08 17:05 | PC.RESP ---
Smoking Cessation information sent to patient.
--- NOTE | 2021-03-08 19:10 | USCV_ITS ---
Denisa Orourke Age: 45 Gender: F : 1975 Exam Date: 03/08/2021 06:35 Ordering Phys: Hayder Jarrell MD Technologist: NANNETTE Exam Location: [facility] [place] Indication: DVT AND PE, RIGHT HEART STRAIN BP: 114 / 79 HR: 93 Rhythm: Sinus Technical Quality: Good MEASUREMENTS (Male / Female) Normal Values 2D ECHO LV Diastolic Diameter PLAX 3.8 cm 4.2 - 5.9 / 3.9 - 5.3 cm LV Systolic Diameter PLAX 2.4 cm IVS Diastolic Thickness 0.8 cm 0.6 - 1.0 / 0.6 - 0.9 cm IVS Systolic Thickness 1.1 cm LVPW Diastolic Thickness 0.7 cm 0.6 - 1.0 / 0.6 - 0.9 cm LVPW Systolic Thickness 1.3 cm LVOT Diameter 2.0 cm LV Ejection Fraction 2D Teich 67.5 % LV Ejection Fraction MOD 2C 61.2 % LV Ejection Fraction 2C AL 61.5 % LA Diameter 2.2 cm LA Width 2.5 cm LA Height 3.3 cm RA Width 2.8 cm RA Height 3.5 cm Aorta at Sinotubular Diameter 2.3 cm M-MODE Aortic Annulus Diameter 2.7 cm LA Ao Ratio MM 0.8 MV E Point Septal Separation 0.4 cm DOPPLER AV Peak Velocity 137.0 cm/s LVOT Peak Velocity 110.0 cm/s AV Area Cont Eq vti 2.7 cm squared AV Area Cont Eq pk 2.4 cm squared MV Area PHT 4.2 cm squared Mitral E to A Ratio 0.8 MV E' Velocity 41.8 cm/s Mitral E to MV E' Ratio 6.2 Mitral E to LV E' Lateral Ratio 6.0 Mitral E to LV E' Septal Ratio 6.5 TR Peak Velocity 115.1 cm/s TR Peak Gradient 5.3 mmHg TR Mean Velocity 84.6 cm/s TR Mean Gradient 3.1 mmHg TR Velocity Time Integral 22.6 cm Right Atrial Pressure 3.0 mmHg Pulmonary Artery Systolic Pressu 8.3 mmHg RV Acceleration Time 0.2 s RV Ejection Time 0.3 s RV AcT/ET 0.5 FINDINGS Left Ventricle Normal left ventricular size and systolic function, EF 67 %. No regional wall motion abnormalities. Grade I/IV diastolic dysfunction (abnormal relaxation filling pattern), normal to mildly elevated filling pressures. Right Ventricle Normal RV size and ejection fraction. Right Atrium The right atrium is normal in size. Left Atrium The left atrium is normal in size. Mitral Valve Trace mitral valve regurgitation. Aortic Valve No gross abnormalities noted Tricuspid Valve No gross abnormalities noted Pulmonic Valve Trace pulmonary valve regurgitation. Pericardium Normal pericardium without effusion. Aorta Normal ascending aorta dimension. CONCLUSIONS Normal left ventricular size and systolic function, EF 67 %. No regional wall motion abnormalities. Grade I/IV diastolic dysfunction (abnormal relaxation filling pattern), normal to mildly elevated filling pressures. Trace pulmonary valve regurgitation. Trace mitral valve regurgitation. No evidence of right ventricular strain. The PA pressure could not be calculated properly because of the poor Doppler signal-possibly within normal limits There is no pericardial effusion. There are no intracardiac masses. Compared to the study from 03/23/2020, there may not be a significant change. Dr Jeanne Zaidi MD [facility] (Electronically Signed) Final Date: 08 March 2021 08:56 S
[2021-03-09] VITALS (10 sets, daily range): BP systolic 94–119; BP diastolic 62–82; PULSE 85–95; RESP 16–20; TEMP 36.6–37.4; O2SAT 94–100
[2021-03-09] MEDS: morphine 4 mg/mL SDV 1 mL 2 MG IVP ×3 (02:34→14:31)
[2021-03-09 03:13] LABS: Basophils # 0.1 10^3/uL (0.0-0.1); Basophils % 0.9 %; Eosinophils # 0.3 10^3/uL (0.0-0.8); Eosinophils % 4.1 %; Hematocrit 32.7 % (37.0-47.0); Hemoglobin 10.9 g/dL (11.5-15.3); Lymphocytes # 1.9 10^3/uL (0.8-4.8); Lymphocytes % 29.6 %; Mean Corpuscular HGB Conc 33.3 g/dL (30.0-36.0); Mean Corpuscular Hemoglobin 36.5 pg (28.0-34.0); Mean Corpuscular Volume 109.4 fL (81-99); Mean Platelet Volume 11.1 fL (7.4-10.4); Monocytes # 0.5 10^3/uL (0.2-0.9); Monocytes % 7.3 %; Neutrophils # 3.77 10^3/uL (1.8-7.7); Neutrophils % 57.5 %; Nucleated Red Blood Cells % 0 %; Platelet Count 169 10^3/cmm (130-400); Red Blood Count 2.99 10^6/uL (4.1-5.3); Red Cell Distribution Width 15.8 % (12.1-15.1); White Blood Count 6.6 10^3/uL (4.0-10.0)
[2021-03-09 03:42] LABS: Alanine Aminotransferase 9 U/L (0-33); Albumin Level 2.6 g/dL (3.5-5.2); Alkaline Phosphatase 97 IU/L (35-105); Anion Gap 11.6 (5-19); Aspartate Amino Transferase 14 U/L (0-32); Blood Urea Nitrogen 8 mg/dL (6-20); Calcium 8.2 mg/dL (8.5-10.5); Carbon Dioxide 26 mmol/L (22-29); Chloride 100 mmol/L (98-107); Globulin 3.3 g/dL (1.3-4.6); Glomerular Filtration Rate 132.8 mL/min (90-130); Glucose 75 mg/dL (65-115); Magnesium 1.8 mg/dL (1.7-2.3); Osmolality Calculated 275 mOsm/kg (285-295); Phosphorus 3.9 mg/dL (2.5-4.5); Potassium 3.6 mmol/L (3.5-5.1); Sodium 134 mmol/L (136-145); Total Bilirubin 0.5 mg/dL (0.15-1.2); Total Protein 5.9 g/dL (6.6-8.7)
[2021-03-09] MEDS: enoxaparin 60 mg/0.6 mL Syringe SUBCUT (04:20)
--- NOTE | 2021-03-09 05:10 | PC.NURSE ---
Shift Note Frequent safety and comfort rounds continue. Orders and/or nursing care completed as indicated. Patient monitored for response to intervention and treatments for DVT and PE. Education provided includes activity, pain management, and antithrombolitic care]. Patient verbalized understanding, no event this shift, patient rested and repositioned once for comfort per patent request. . Will continue to monitor.
[2021-03-09] MEDS: ciprofloxacin 500 mg Tablet 250 MG PO (08:08)
[2021-03-09] MEDS: folic acid 1 mg Tablet PO (08:08)
[2021-03-09] MEDS: multivitamin therapeutic Tablet 1 TAB PO (08:08)
[2021-03-09] MEDS: famotidine 20 mg Tablet PO (08:08)
[2021-03-09] MEDS: cyanocobalamin 1,000 mcg Tablet 1000 MCG PO (08:08)
[2021-03-09] MEDS: thiamine 100 mg Tablet PO (08:08)
[2021-03-09] MEDS: LORazepam 2 mg Tablet PO (10:41)
--- NOTE | 2021-03-09 20:56 | PM.DCS ---
Discharge Providers Date of Admission: 03/07/21 18:47 Date of Discharge: March 11, 2021 Attending Provider at Admission: Hayder Jarrell MD Attending Provider at Discharge: Juan J Kovacs Primary Care Provider: Jeni Monsivais MD Diagnoses at Discharge Discharge Diagnosis (1) DVT (deep vein thrombosis) in : Status: Acute (2) Pulmonary embolism: Status: Acute (3) CKD (chronic kidney disease) stage 2, GFR 60-89 ml/min: Status: Acute (4) Alcohol abuse: Status: Acute (5) Pulmonary infarct: Status: Acute (6) Vitamin B12 deficiency anemia: Status: Acute (7) Folic acid deficiency: Status: Acute (8) UTI (urinary tract infection): Status: Acute Reason for Visit Reason for Visit: left leg pain Hospital Course Hospital Course 45 year old female with a past medical history of DVT and bilateral pulmonary emboli off anticoagulation Xarelto, diastolic CHF, history of alcohol abuse, history of PSVT, GERD, hypertension, history of S4-S5 fracture, history of thrombocytopenia, history of leukopenia and neutropenia, history of bone marrow suppression from possible alcohol consumption, history of pyelonephritis, history of recurrent UTIs, history of fatty liver disease, history of depression, anxiety, who presents to [facility] for left leg swelling. Patient tells me that 2 days ago, she started to develop left leg swelling, the leg leg swelling became much more severe, she had difficulty ambulating, some slight shortness of breath, no chest pain, no palpitations, lightness, dizziness, recent travel, no known exposure to COVID-19, has not received COVID-19 vaccinations, no recent surgeries, no history of malignancy, no history of hypercoagulability. She does have a history of DVT and PE, she was on Xarelto, she is vague in why it was stopped, but it sounds like she finished anticoagulant therapy so stopped after a year. In the emergency room patient was found to have an occlusive left lower extremity DVT, bilateral pulmonary emboli, currently tachycardic, no chest pain, normotensive, not requiring room air, only complaint is of severe left lower extremity swelling and pain. Upon admission to hospital patient started on Lovenox. denied any bleeding abscess. due to prior history of bleeding and thrombocytopenia patients advised to follow up with pcp and or return to hospital if any bleeding episodes. ECHO was performed an noted. Pulmonary follow up was recommended. Patient was transitioned to Eliquis 5 mg PO BID at discharge. Physical Exam Const: COMMON NORMALS: no acute distress and patient oriented x3 GENERAL APPEARANCE: comfortable Eye: COMMON NORMALS: Equal, round and reactive pupils present and EOMs intact bilaterally GENERAL EYE: appearance normal, both eyes and all related structures PUPIL: Yes Equal, round and reactive pupils present Neck/C-Spine: COMMON NORMALS: full ROM, no JVD and Thyroid normal THYROID: Thyroid normal Lymph: LYMPHATIC: no lymphadenopathy noted Resp: COMMON NORMALS: normal respiratory effort, No retractions, No use of accessory muscles and clear to auscultation bilaterally AUSCULTATION: clear to auscultation bilaterally Cardio: COMMON NORMALS: no JVD, regular rate, regular rhythm, S1 normal heart sound present, S2 normal heart sound present, No gallops present (Cardio), No clicks present (Cardio) and No murmurs present (Cardio) RATE: regular rate RHYTHM: regular rhythm HEART SOUNDS: S1 normal heart sound present and S2 normal heart sound present GI: COMMON NORMALS: Normal to inspection, nondistended, normoactive bowel sounds present, Soft to palpation, non-tender and No hepatosplenomegaly present PALPATION: Yes Soft to palpation and Yes No hepatosplenomegaly present Extremity: NARRATIVE EXTREMITY EXAM: Left lower extremity pain, swelling, warmth, edema extending from the left lower calf, up to the left knee Neuro: COMMON NORMALS: patient oriented x3, CN's II-XII intact bilaterally, moves all extremities and no focal motor deficits Psych: COMMON NORMALS: mental status grossly normal, Normal thought process present and cooperative THOUGHT PROCESS: Normal thought process present Discharge Data Data Completed and Pending: Completed Studies During Hospitalization Category Date Time Status CT angio chest PE protcl [id number] Urge nt Cat Scan 03/07/21 14:26 [place] [id number] Urgent Ultrasound 03/07/21 12:40 Completed CV. echo complete * [id number] Routine Ultrasound 03/08/21 19:10 Completed Pending at discharge Category Date Time Status LATASHA Profile Rheum atology Stat Lab 03/07/21 21:20 Results Lupus Inhibitor P el Anticoag Stat Lab 03/07/21 21:20 Received Miscellaneous Cassidy t Routine Lab 03/07/21 21:20 Received Vitals: Last Vital Signs Temp 97.9 F 08/10/21 15:43 Pulse 90 03/09/21 15:43 Resp 18 03/09/21 15:43 BP 115/79 03/09/21 15:43 Pulse Ox 100 03/09/21 15:43 Discharge Plan Discharge Patient Disposition: Home Condition: Stable Prescriptions: New Eliquis 5 mg tablet 5 mg PO BID Qty: 90 RF: 3 Continued cetirizine [Zyrtec] 10 mg Tablet 10 mg PO BID PRN (Reason: Allergy Symptoms) RF: 0 multivitamin with folic acid [Thera] 400 mcg Tablet 1 tab PO DAILY Qty: 30 RF: 0 Discontinued ketorolac 10 mg tablet 10 mg PO TID PRN (Reason: pain) Qty: 10 RF: 0 Discharge Orders: Discharge Order (Routine); Ordered 03/09/21 Ordered By: Juan J Kovacs Referrals: DatarMichael MD [Physician] - 03/22/21 1:00 pm Jeni Monsivais MD [Primary Care Provider] - 03/15/21 10:30 am Discharge Diet: Advance as tolerated Discharge Activity: Increase activity as tolerated Patient Instructions: Anticoagulation Therapy, Apixaban (By mouth), Pulmonary Embolism (DC), Urinary Tract Infection in Women (DC), Deep Venous Thrombosis (DC), Opioid Safety Discharge Attestations Time Spent in Discharge Care*: greater than 30 min Specific Discharge Activities: educating patient, discussing with human services case manager/social workers/dc planners, documenting/other paperwork and evaluating patient/reviewing data Status at Discharge: Cognitive status at discharge: cognitively intact, Behavioral status at discharge: cooperative, Functional status at discharge: independent ambulation Overall status at discharge: patient is progressing back to baseline Quality Metrics Clinical Quality Measures During this hospital stay, did patient experience: VTE Contraindication to Overlap Therapy: Overlap treatment not indicated VTE Discharge Education: Education about anticoagulant therapy/Care Notes given, Education about treatment options/disease process, Medication side effects education and Follow-up arranged Deep Vein Thrombosis/Pulmonary Embolism Present on Admission: Yes Coding Level of Care Code Acute Chg FW DC note Diagnoses DVT (deep vein thrombosis) in O22.30 Pulmonary embolism I26.99 CKD (chronic kidney disease) stage 2, GFR 60-89 ml/min N18.2 Alcohol abuse F10.10 Pulmonary infarct I26.99 Vitamin B12 deficiency anemia D51.9 Folic acid deficiency E53.8 UTI (urinary tract infection) N39.0
[2021-03-10 13:48] LABS: CENTROMERE B ANTIBODY <1.0 NEG AI (<1.0 NEG); JO-1 ANTIBODY <1.0 NEG AI (<1.0 NEG); RNP ANTIBODY <1.0 NEG AI (<1.0 NEG); SCL-70 ANTIBODY <1.0 NEG AI (<1.0 NEG); SJOGREN'S ANTIBODY (SS-A) <1.0 NEG AI (<1.0 NEG); SM ANTIBODY <1.0 NEG AI (<1.0 NEG); SS-B <1.0 NEG AI (<1.0 NEG)
[2021-03-10 14:27] LABS: COMPLEMENT COMPONENT C3C 119 mg/dL (83-193); COMPLEMENT COMPONENT C4C 30 mg/dL (15-57)
[2021-03-10 15:08] LABS: COMPLEMENT, TOTAL (CH50) >60 U/mL (31-60)
[2021-03-10 15:18] LABS: THYROID PEROXIDASE ANTIBODIES <1 IU/mL (<9)
[2021-03-10 16:53] LABS: ANA SCREEN, IFA NEGATIVE (NEGATIVE)
[2021-03-12 04:33] LABS: Inhibitor Screen Reflex Negative (Negative); LA-Interp Not Indicated; PTT-LA 59 sec (<=40); Prothrombin Time 30 sec (<=45)
[2021-03-12 23:58] LABS: DNA AB (DS) CRITHIDIA,IFA NEGATIVE (NEGATIVE)
--- NOTE | 2021-03-15 11:45 | PC.SOCIAL ---
follow up discharge call made. Patient had Eliquis delivered to her room prior to discharge. Is taking bid. Pt had follow up today with PCP and is aware of follow up with Dr. Lord 03-22. Denies any questions or concerns with discharge.
== END 2021-03-09 15:44 | disposition home or self-care (01) | DRG 299 ==
LOC: ER 17:11 → ER IP 19:02 → MEDSURG 21:28
PROVIDERS: Physician Assistant; Admitting Provider Family Medicine; Emergency Provider Physician Assistant; PCP Family Medicine; Visit Provider Hospitalist
DX: I82.402 Acute embolism and thrombosis of unspecified deep veins of left lower extremity (principal); I26.99 Other pulmonary embolism without acute cor pulmonale; N39.0 Urinary tract infection, site not specified; I13.0 Hypertensive heart and chronic kidney disease with heart failure and stage 1 through stage 4 chronic kidney disease, or unspecified chronic kidney disease; I50.32 Chronic diastolic (congestive) heart failure; M79.7 Fibromyalgia; K21.9 Gastro-esophageal reflux disease without esophagitis; E03.9 Hypothyroidism, unspecified; N18.2 Chronic kidney disease, stage 2 (mild); Z20.822 Contact with and (suspected) exposure to COVID-19; D51.9 Vitamin B12 deficiency anemia, unspecified; F17.210 Nicotine dependence, cigarettes, uncomplicated; F10.11 Alcohol abuse, in remission; Z86.718 Personal history of other venous thrombosis and embolism; Z86.711 Personal history of pulmonary embolism; Z90.710 Acquired absence of both cervix and uterus; Z90.49 Acquired absence of other specified parts of digestive tract; Z98.51 Tubal ligation status; Z82.49 Family history of ischemic heart disease and other diseases of the circulatory system; Z56.0 Unemployment, unspecified; Z88.2 Allergy status to sulfonamides; Z88.8 Allergy status to other drugs, medicaments and biological substances; Z79.01 Long term (current) use of anticoagulants; Z86.59 Personal history of other mental and behavioral disorders; Z87.440 Personal history of urinary (tract) infections; Z86.16 Personal history of COVID-19
CPT/HCPCS: 36415; 71275; 80053; 80306; 80307; 81001; 82607; 82746; 83735; 83880; 84100; 84443; 84484; 85025; 85300; 85303; 85306; 85307; 85610; 85613; 85651; 85730; 86140; 86160; 86162; 86235; 86255; 86376; 87077; 87086; 87186; 87426; 93005; 93306; 93971; 96361; 96372; 96374; 96375; 97161; 97165; 97530; 99285; J1650; J2060; J2270; J3411; J7030; Q9967

== ENCOUNTER 2021-03-31 16:01 | Emergency (ER) | payer SELFPAY ==
[2021-03-31 16:43] VITALS: BP 118/84; PULSE 80; RESP 20; TEMP 36.8; O2SAT 97; BMI 20.9
--- NOTE | 2021-03-31 17:14 | ECG_ITS ---
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 Measurements Intervals [place] Rate: 87 P: 76 WV: 163 QRS: -50 QRSD: 82 T: 92 QT: 352 QTc: 426 Interpretive Statements SINUS RHYTHM POSSIBLE LEFT ATRIAL ENLARGEMENT [-0.1mV P WAVE IN V1/V2] MARKED LEFT AXIS DEVIATION [QRS AXIS < -30] POSSIBLE RIGHT VENTRICULAR CONDUCTION DELAY [RSR (QR) IN V1/V2] NONSPECIFIC T-WAVE ABNORMALITY Compared to ECG 03/07/2021 21:11:45 Left-axis deviation now present T-wave abnormality now present Myocardial infarct finding no longer present Electronically Signed On 03-31-2021 19:44:47 CDT by Jeanne Zaidi M.D. [id number]
--- NOTE | 2021-03-31 20:04 | W.ED.CHESTPA ---
HPI - Chest Pain General: Chief Complaint: Chest Pain Stated Complaint: CHEST PRESSURE Time Seen by Provider: [facility]31[facility]21 [facility]: Medical History (Updated 03/22/21 @ 17:48 by Masha Pablo MD) Back pain Dyshidrotic hand dermatitis Fibromyalgia GERD (gastroesophageal reflux disease) Gram-negative bacteremia H/O History of hypothyroidism HTN (hypertension) Macrocytosis Migraine without aura, not intractable, without status migrainosus Nasal vestibulitis Nicotine abuse PSVT (paroxysmal supraventricular tachycardia) Pulmonary embolism Pulmonary infarct Pyelonephritis of right kidney Recurrent UTI Renal infarct Spinal stenosis, cervical region Transaminitis Vitamin B12 deficiency anemia Vitamin D deficiency Surgical History H/O colonoscopy 2018 - normal History of hysterectomy with bilateral oophorectomy History of radiofrequency ablation (RFA) procedure for cardiac arrhythmia Hx of appendectomy S/P carpal tunnel release S/P tubal ligation Family History Mother Atrial fibrillation Hypertension Social History Alcohol intake: current Alcohol intake frequency: 0-2 Drinks per Day Lives independently: Yes Household members: spouse and family Marital status: service: No Current occupational status: unemployed History of recent travel: No Current gender identity: Female Female Reproductive History: Date of last menstrual period: 07/31/10 Course Vital Signs: Vital signs: Vital Signs Temperature 98.3 F 03/31/21 16:43 Pulse Rate 80 03/31/21 16:43 Respiratory Rate 20 H 03/31/21 16:43 Blood Pressure 118/84 03/31/21 16:43 Pulse Oximetry 97 03/31/21 16:43 Discharge Plan Discharge Prescriptions: No Action ketorolac 10 mg tablet 10 mg PO Q6H PRN (Reason: moderate to severe pain) 5 Days Qty: 20 RF: 1 ondansetron HCl [Zofran] 4 mg tablet 4 mg PO Q8H PRN (Reason: nausea and vomiting) RF: 0 cetirizine [Zyrtec] 10 mg Tablet 10 mg PO BID PRN (Reason: Allergy Symptoms) RF: 0 multivitamin with folic acid [Thera] 400 mcg Tablet 1 tab PO DAILY Qty: 30 RF: 0 Eliquis 5 mg tablet 5 mg PO BID Qty: 90 RF: 3 Coding Level of Care Code ED Dye Reel Operator for Apryl Salas
--- NOTE | 2021-03-31 20:05 | XRR_ITS ---
PROCEDURE INFORMATION: Exam: XR Chest Exam date and time: 03/31/2021 8:05 PM Age: 45 years old Clinical indication: Sternal or substernal pain; Additional info: Cp TECHNIQUE: Imaging protocol: XR of the chest. Views: 1 view. COMPARISON: CR XR chest 1V portable [id number] 03/01/2021 3:30 PM FINDINGS: Lungs: Unremarkable. No consolidation. Pleural spaces: Unremarkable. No pleural effusion. No pneumothorax. Heart/Mediastinum: Unremarkable. No cardiomegaly. Bones/joints: Unremarkable. XR/XR chest 1V portable [id number] IMPRESSION: No acute findings.
--- NOTE | 2021-03-31 20:08 | XRR_ITS ---
PROCEDURE INFORMATION: Exam: XR Pelvis Exam date and time: 03/31/2021 8:08 PM Age: 45 years old Clinical indication: Injury or trauma; Fall; Blunt trauma (contusions or hematomas); Bilateral; Hip TECHNIQUE: Imaging protocol: XR pelvis. Views: 1 or 2 view. COMPARISON: CT abdomen pelvis w con* [id number] 12/10/2020 6:10 AM FINDINGS: Bones/joints: No pelvic fractures. Unremarkable alignment. Symmetric mild severity osteoarthritis of the hip joints. Soft tissues: Unremarkable. Intraperitoneal space: Right lower quadrant surgical clips. XR/XR pelvis 1-2V* [id number] IMPRESSION: No acute abnormality identified.
--- NOTE | 2021-03-31 20:08 | XRR_ITS ---
PROCEDURE INFORMATION: Exam: XR Lumbosacral Spine Exam date and time: 03/31/2021 8:08 PM Age: 45 years old Clinical indication: Injury or trauma; Fall; Blunt trauma (contusions or hematomas) TECHNIQUE: Imaging protocol: XR of the lumbosacral spine. Views: 2 or 3 views. COMPARISON: CT lumbar spine wo con* [id number] 03/02/2020 10:08 AM FINDINGS: Bones/joints: No acute lumbar spine fracture. Grade 1 L5-S1 spondylolisthesis. Bilateral L5 pars defects. Soft tissues: Unremarkable. Intraperitoneal space: Right lower quadrant surgical clips. XR/XR lumbar spine 2-3V* [id number] IMPRESSION: No acute lumbar spine abnormality.
--- NOTE | 2021-03-31 20:10 | W.ED.CHESTPA ---
HPI - Chest Pain General: Chief Complaint: Chest Pain Stated Complaint: CHEST PRESSURE Time Seen by Provider: 03/31/21 20:04 Source: patient Mode of arrival: ambulatory Limitations: no limitations History of Present Illness: HPI narrative: 45-year-old female in pulmonary embolism along with DVT last month. She also has a extensive history of alcoholism. She states that yesterday she had fell on her ride and landed on her buttocks. States she been having low back and buttocks pain since then. She has been ambulatory and is able ambulate here as well. States that today though she started having some chest pain that is sharp in nature started 5 to 6 hours ago. States that since resolved. She denies any shortness of breath. Denies any worsening improving factors. Associated symptoms: Deny abdominal pain, dyspnea, fever(s), nausea or vomiting Review of Systems Const: Denies: fever(s), chills, body aches or change in appetite Eyes: Denies: blurry vision or eye discomfort ENMT: Denies: throat pain or dental pain Card: Reports: chest pain Resp: Denies: dyspnea GI: Denies: abdominal pain, nausea, vomiting or diarrhea : Denies: dysuria Musc: Reports: back pain Skin/Breast: Denies: rash Neuro: Denies: headache(s) Psych: Denies: depression Maxime/Lymph: Denies: easy bruising All/Imm: Denies: urticaria PFSH ED PFSH: Medical History (Updated 03/31/21 @ 22:34 by Aj Diggs MD) Back pain Dyshidrotic hand dermatitis Fibromyalgia GERD (gastroesophageal reflux disease) Gram-negative bacteremia H/O History of hypothyroidism HTN (hypertension) Macrocytosis Migraine without aura, not intractable, without status migrainosus Nasal vestibulitis Nicotine abuse PSVT (paroxysmal supraventricular tachycardia) Pulmonary embolism Pulmonary infarct Pyelonephritis of right kidney Recurrent UTI Renal infarct Spinal stenosis, cervical region Transaminitis Vitamin B12 deficiency anemia Vitamin D deficiency Surgical History H/O colonoscopy 2018 - normal History of hysterectomy with bilateral oophorectomy History of radiofrequency ablation (RFA) procedure for cardiac arrhythmia Hx of appendectomy S/P carpal tunnel release S/P tubal ligation Family History Mother Atrial fibrillation Hypertension Social History Alcohol intake: current Alcohol intake frequency: 0-2 Drinks per Day Lives independently: Yes Household members: spouse and family Marital status: service: No Current occupational status: unemployed History of recent travel: No Current gender identity: Female Female Reproductive History: Date of last menstrual period: 07/31/10 Physical Exam Const: COMMON NORMALS: no acute distress, patient oriented x3 and healthy appearing HENMT: COMMON NORMALS: normocephalic and atraumatic HEAD & SCALP: normocephalic and atraumatic Eye: COMMON NORMALS: Equal, round and reactive pupils present and EOMs intact bilaterally PUPIL: Yes Equal, round and reactive pupils present Neck/C-Spine: COMMON NORMALS: full ROM and supple Chest: COMMONS NORMALS: normal inspection of the chest and normal palpation of entire chest wall Resp: COMMON NORMALS: normal respiratory effort, No retractions, No use of accessory muscles and clear to auscultation bilaterally AUSCULTATION: clear to auscultation bilaterally Cardio: COMMON NORMALS: regular rate, regular rhythm and No murmurs present (Cardio) RATE: regular rate RHYTHM: regular rhythm GI: COMMON NORMALS: Normal to inspection, nondistended, normoactive bowel sounds present, Soft to palpation, non-tender and no masses PALPATION: Yes Soft to palpation Back/Pelvis: OTHER: Paraspinal area lumbar tenderness on exam Extremity: COMMON NORMALS: normal to inspection and full ROM Neuro: COMMON NORMALS: patient oriented x3, moves all extremities and no focal motor deficits Psych: COMMON NORMALS: mental status grossly normal, Normal thought process present and cooperative THOUGHT PROCESS: Normal thought process present Skin: COMMON NORMALS: no rashes or lesions noted and no wounds GENERAL SKIN EXAM: no rashes or lesions noted Course Vital Signs: Vital signs: Vital Signs Temperature 98.3 F 03/31/21 16:43 Pulse Rate 88 03/31/21 20:52 Respiratory Rate 20 H 03/31/21 20:52 Blood Pressure 154/112 03/31/21 20:52 Pulse Oximetry 94 03/31/21 20:52 MDM - Chest Pain MDM Narrative: Medical decision making narrative: Patient presents here with chest pains atypical in nature her initial repeat troponins are negative. She had a fall as well and x-ray shows no fractures. Did not hit her head and is amatory here. She is stable for discharge she is to follow-up with PCP and return if worsening. She understands agrees to plan. Lab Data: Labs: Lab Results 03/31/21 03/31/21 03/31/21 Range/Units 20:10 20:10 20:10 WBC 4.8 (4.0-10.0) 10^3/ uL RBC 3.33 L (4.1-5.3) 10^6/u L Hgb 12.1 (11.5-15.3) g/dL Hct 36.5 L (37.0-47.0) % MCV 109.6 H (81-99) fl MCH 36.3 H (28.0-34.0) pg MCHC 33.2 (30.0-36.0) g/dL RDW 17.4 H (12.1-15.1) % Plt Count 92 L (130-400) 10^3/c mm MPV 10.6 H (7.4-10.4) fL Neut % (Auto) 52.4 % Lymph % (Auto) 36.1 % [place] % (Auto) 8.6 % Eos % (Auto) 1.7 % Baso % (Auto) 1.0 % Neut # (Auto) 2.51 (1.8-7.7) 10^3/u L Lymph # (Auto) 1.7 (0.8-4.8) 10^3/u L [place] # (Auto) 0.4 (0.2-0.9) 10^3/u L Eos # (Auto) 0.1 (0.0-0.8) 10^3/u L Baso # (Auto) 0.1 (0.0-0.1) 10^3/u L Nucleated RBC % (a uto) 0 % Nucleated RBCs # 0.0 /100WBC PT 15.50 H (12.1-14.9) SECO NDS INR 1.19 (0.8-1.2) Sodium 138 (136-145) mmol/L Potassium 4.0 (3.5-5.1) mmol/L Chloride 101 (98-107) mmol/L Carbon Dioxide 24 (22-29) mmol/L Anion Gap 17.0 (5-19) BUN 9 (6-20) mg/dL Creatinine 0.5 (0.5-0.9) mg/dL GFR Calculation 132.8 H (90-130) mL/min Glucose 103 (65-115) mg/dL Calculated Osmolal ity 285 (285-295) mOsm/k g Calcium 9.3 (8.5-10.5) mg/dL Total Bilirubin 2.0 H (0.15-1.2) mg/dL AST 40 H (0-32) U/L ALT 23 (0-33) U/L Alkaline Phosphata se 132 H (35-105) IU/L Troponin T Baselin e (0-10) ng/L Troponin T 120 Min [place] (0-10) ng/L Delta Troponin T (0-10) ABS# NT-Pro-B Natriuret Pep 59 (0-125) pg/mL Total Protein 6.9 (6.6-8.7) g/dL Albumin 3.8 (3.5-5.2) g/dL Globulin 3.1 (1.3-4.6) g/dL 03/31/21 03/31/21 Range/Units 20:10 22:00 WBC (4.0-10.0) 10^3/ uL RBC (4.1-5.3) 10^6/u L Hgb (11.5-15.3) g/dL Hct (37.0-47.0) % MCV (81-99) fl MCH (28.0-34.0) pg MCHC (30.0-36.0) g/dL RDW (12.1-15.1) % Plt Count (130-400) 10^3/c mm MPV (7.4-10.4) fL Neut % (Auto) % Lymph % (Auto) % [place] % (Auto) % Eos % (Auto) % Baso % (Auto) % Neut # (Auto) (1.8-7.7) 10^3/u L Lymph # (Auto) (0.8-4.8) 10^3/u L [place] # (Auto) (0.2-0.9) 10^3/u L Eos # (Auto) (0.0-0.8) 10^3/u L Baso # (Auto) (0.0-0.1) 10^3/u L Nucleated RBC % (a uto) % Nucleated RBCs # /100WBC PT (12.1-14.9) SECO NDS INR (0.8-1.2) Sodium (136-145) mmol/L Potassium (3.5-5.1) mmol/L Chloride (98-107) mmol/L Carbon Dioxide (22-29) mmol/L Anion Gap (5-19) BUN (6-20) mg/dL Creatinine (0.5-0.9) mg/dL GFR Calculation (90-130) mL/min Glucose (65-115) mg/dL Calculated Osmolal ity (285-295) mOsm/k g Calcium (8.5-10.5) mg/dL Total Bilirubin (0.15-1.2) mg/dL AST (0-32) U/L ALT (0-33) U/L Alkaline Phosphata se (35-105) IU/L Troponin T Baselin e 8 (0-10) ng/L Troponin T 120 Min [place] 10.01 H (0-10) ng/L Delta Troponin T 2.01 (0-10) ABS# NT-Pro-B Natriuret Pep (0-125) pg/mL Total Protein (6.6-8.7) g/dL Albumin (3.5-5.2) g/dL Globulin (1.3-4.6) g/dL Imaging Data^: CXR: Attestation: I personally reviewed and interpreted this imaging study as follows: My impression: no acute abnormality xr lumbar: Attestation: I personally reviewed and interpreted this imaging study as follows: My impression: no acute abnormality xr pelvis: Attestation: I personally reviewed and interpreted this imaging study as follows: My impression: no acute abnormality EKG Data^: EKG 1: Attestation: I personally reviewed and interpreted this EKG as follows: EKG interpretation date: 03/31/21 EKG interpretation time: 16:56 Interpretation: nsr hr [address] or t wave abnormalities qrs 82 qtc 397 EKG 2: Attestation: I personally reviewed and interpreted this EKG as follows: EKG interpretation date: 03/31/21 EKG interpretation time: 22:12 Interpretation: nsr hr [address] or t wave abnormalities qrs 89 qtc 451 Discharge Plan Discharge Patient Disposition: Home Clinical Impression: Chest pain Qualifiers: Chest pain type: unspecified Qualified Code(s): R07.9 - Chest pain, unspecified Fall Qualifiers: Encounter type: initial encounter Qualified Code(s): W19.XXXA - Unspecified fall, initial encounter Lumbar contusion Qualifiers: Encounter type: initial encounter Qualified Code(s): S30.0XXA - Contusion of lower back and pelvis, initial encounter Condition: Stable Prescriptions: No Action ketorolac 10 mg tablet 10 mg PO Q6H PRN (Reason: moderate to severe pain) 5 Days Qty: 20 RF: 1 ondansetron HCl [Zofran] 4 mg tablet 4 mg PO Q8H PRN (Reason: nausea and vomiting) RF: 0 cetirizine [Zyrtec] 10 mg Tablet 10 mg PO BID PRN (Reason: Allergy Symptoms) RF: 0 multivitamin with folic acid [Thera] 400 mcg Tablet 1 tab PO DAILY Qty: 30 RF: 0 Eliquis 5 mg tablet 5 mg PO BID Qty: 90 RF: 3 Discharge Orders: Discharge ED (Routine); Ordered 03/31/21 Ordered By: Aj Diggs Referrals: Arpan Wallace MD [Primary Care Provider] - 1-3 days Discharge Diet: Advance as tolerated Discharge Activity: Resume usual activity Patient Instructions: Chest Pain (ED), Fall Prevention (ED) Coding Level of Care Code ED Candy Wrapping Machine Operator for Chg Fwd 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
[2021-03-31 20:49] LABS: Basophils # 0.1 10^3/uL (0.0-0.1); Eosinophils # 0.1 10^3/uL (0.0-0.8); Eosinophils % 1.7 %; Hematocrit 36.5 % (37.0-47.0); Hemoglobin 12.1 g/dL (11.5-15.3); Lymphocytes # 1.7 10^3/uL (0.8-4.8); Lymphocytes % 36.1 %; Mean Corpuscular HGB Conc 33.2 g/dL (30.0-36.0); Mean Corpuscular Hemoglobin 36.3 pg (28.0-34.0); Mean Corpuscular Volume 109.6 fl (81-99); Mean Platelet Volume 10.6 fL (7.4-10.4); Monocytes # 0.4 10^3/uL (0.2-0.9); Monocytes % 8.6 %; Neutrophils # 2.51 10^3/uL (1.8-7.7); Neutrophils % 52.4 %; Nucleated Red Blood Cells % 0 %; Platelet Count 92 10^3/cmm (130-400); Red Blood Count 3.33 10^6/uL (4.1-5.3); Red Cell Distribution Width 17.4 % (12.1-15.1); White Blood Count 4.8 10^3/uL (4.0-10.0)
[2021-03-31 20:52] VITALS: BP 154/112; PULSE 88; RESP 20; O2SAT 94
[2021-03-31] MEDS: HYDROmorphone 1 mg/mL INJ 1 mL IVP (20:52)
[2021-03-31] MEDS: ondansetron 2 mg/ML SDV 2 mL 4 MG IVP (20:52)
[2021-03-31 21:06] LABS: Alanine Aminotransferase 23 U/L (0-33); Albumin Level 3.8 g/dL (3.5-5.2); Alkaline Phosphatase 132 IU/L (35-105); Aspartate Amino Transferase 40 U/L (0-32); Blood Urea Nitrogen 9 mg/dL (6-20); Calcium 9.3 mg/dL (8.5-10.5); Carbon Dioxide 24 mmol/L (22-29); Chloride 101 mmol/L (98-107); Globulin 3.1 g/dL (1.3-4.6); Glomerular Filtration Rate 132.8 mL/min (90-130); Glucose 103 mg/dL (65-115); NT Pro B Type Natriuretic Pept 59 pg/mL (0-125); Osmolality Calculated 285 mOsm/kg (285-295); Sodium 138 mmol/L (136-145); Total Protein 6.9 g/dL (6.6-8.7); Troponin(5th) Baseline 8 ng/L (0-10)
[2021-03-31 21:48] LABS: INR 1.19 (0.8-1.2)
--- NOTE | 2021-03-31 22:05 | ECG_ITS ---
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 Measurements Intervals [place] Rate: 67 P: 57 ID: [id number] QRS: 12 QRSD: 89 T: 51 QT: 436 QTc: 461 Interpretive Statements SINUS RHYTHM LOW QRS VOLTAGE IN PRECORDIAL LEADS [QRS DEFLECTION < 1.0 mV IN CHEST LEADS] POSSIBLE RIGHT VENTRICULAR CONDUCTION DELAY [RSR (QR) IN V1/V2] Compared to ECG 03/31/2021 16:56:02 Low QRS voltage now present Left-axis deviation no longer present T-wave abnormality no longer present Electronically Signed On 04-02-2021 9:09:31 CDT by Trisha Obrien M.D. [id number]
[2021-03-31 22:28] LABS: Troponin 5 2HR 10.01 ng/L (0-10); Troponin 5 2HR Delta 2.01 ABS# (0-10)
[2021-03-31] MEDS: promethazine 25 mg/mL SDV 1 mL IM (22:51)
[2021-03-31 23:25] VITALS: BP 149/65; PULSE 68; RESP 18; O2SAT 96
== END 2021-03-31 23:26 | disposition home or self-care (01) ==
PROVIDERS: Emergency Provider Emergency Medicine; PCP Hospitalist
DX: R07.9 Chest pain, unspecified (principal); S30.0XXA Contusion of lower back and pelvis, initial encounter; Z79.01 Long term (current) use of anticoagulants; I10 Essential (primary) hypertension; Z86.711 Personal history of pulmonary embolism; W19.XXXA Unspecified fall, initial encounter
CPT/HCPCS: 36415; 71045; 72100; 72170; 80053; 83880; 84484; 85025; 85610; 93005; 96372; 96374; 96375; 99284; J1170; J2405; J2550

== ENCOUNTER 2021-04-12 09:34 | Emergency (ER) | payer SELFPAY ==
--- NOTE | 2021-04-12 10:56 | XR_ITS ---
WS: [id number] SACRUM AND COCCYX TECHNIQUE: AP angled and lateral views. HISTORY: fall COMPARISON: 03/31/2021 Diffuse osteopenia. Surgical clips project over the RIGHT sacrum. No fracture or malalignment. Visualized bony structures are unremarkable. Bilateral mild facet joint arthritis at L5-S1. Spina bifida occulta at S1. XR/XR sacrum coccyx min 2V [id number] IMPRESSION: No sacral or coccygeal fracture identified.
--- NOTE | 2021-04-12 10:57 | W.ED.BACK ---
HPI - Back Pain/Injury General: Chief Complaint: Back Pain/Injury Stated Complaint: Back and Tailbone pain from fall, nausea Time Seen by Provider: 04/12/21 09:38 History of Present Illness: HPI Narrative: Patient states she slipped on some cooking oil on Monday and fell on her tailbone on concrete. Has had pain since then. MD elicited complaint: fall Pertinent past history: prior back pain Onset (ago): day(s) Timing: constant Severity: moderate Similar Symptoms Previously: No Quality: sharp Radiation: none Exacerbating factors: movement Relieving factors: immobilization Context: fall Associated symptoms: Reports no associated symptoms; Deny chills or fever(s) Review of Systems Const: Denies: fever(s) or chills Musc: Reports: back pain (From a fall that was sustained on Monday) Psych: Denies: depression PFSH ED PFSH: Medical History (Updated 04/12/21 @ 11:28 by RODERICK Lemon) Back pain Dyshidrotic hand dermatitis Fibromyalgia GERD (gastroesophageal reflux disease) Gram-negative bacteremia H/O History of hypothyroidism HTN (hypertension) Macrocytosis Migraine without aura, not intractable, without status migrainosus Nasal vestibulitis Nicotine abuse PSVT (paroxysmal supraventricular tachycardia) Pulmonary embolism Pulmonary infarct Pyelonephritis of right kidney Recurrent UTI Renal infarct Spinal stenosis, cervical region Transaminitis Vitamin B12 deficiency anemia Vitamin D deficiency Surgical History H/O colonoscopy 2018 - normal History of hysterectomy with bilateral oophorectomy History of radiofrequency ablation (RFA) procedure for cardiac arrhythmia Hx of appendectomy S/P carpal tunnel release S/P tubal ligation Family History Mother Atrial fibrillation Hypertension Social History Alcohol intake: current Alcohol intake frequency: 0-2 Drinks per Day Lives independently: Yes Household members: spouse and family Marital status: service: No Current occupational status: unemployed History of recent travel: No Current gender identity: Female Female Reproductive History: Date of last menstrual period: 07/31/10 Physical Exam Const: COMMON NORMALS: no acute distress GENERAL APPEARANCE: cooperative Back/Pelvis: SACRUM: no ecchymosis, no erythema, no swelling and tenderness COCCYX: no swelling and Coccyx tenderness present Psych: COMMON NORMALS: mental status grossly normal ATTITUDE: Yes calm Skin: OTHER: No bruising, laceration, or abrasions noted in the coccyx area Course Vital Signs: Vital signs: Vital Signs Pulse Rate 85 04/12/21 10:59 Respiratory Rate 12 04/12/21 10:59 Blood Pressure 134/89 04/12/21 10:59 Pulse Oximetry 100 04/12/21 10:59 MDM - Back Pain/Injury MDM Narrative: Medical decision making narrative: Patient has tailbone contusion. Patient requesting pain medication. Patient will be discharged home instructions apply ice to area follow-up family medical provider. Discharge Plan Discharge Patient Disposition: Home Clinical Impression: Coccyx contusion Qualifiers: Encounter type: initial encounter Qualified Code(s): S30.0XXA - Contusion of lower back and pelvis, initial encounter Condition: Stable Prescriptions: No Action ondansetron HCl [Zofran] 4 mg tablet 4 mg PO Q8H PRN (Reason: nausea and vomiting) RF: 0 celecoxib 100 mg capsule 100 mg PO BID PRN (Reason: pain) Qty: 60 RF: 0 cetirizine [Zyrtec] 10 mg Tablet 10 mg PO BID PRN (Reason: Allergy Symptoms) RF: 0 multivitamin with folic acid [Thera] 400 mcg Tablet 1 tab PO DAILY Qty: 30 RF: 0 Eliquis 5 mg tablet 5 mg PO BID Qty: 90 RF: 3 Discharge Orders: Discharge ED (Routine); Ordered 04/12/21 Ordered By: Trae Brewer Referrals: Arpan Wallace MD [Primary Care Provider] - Discharge Diet: Usual diet Discharge Activity: Increase activity as tolerated Patient Instructions: Coccyx Injury (ED) Activity Restrictions/Additional Instructions: Apply ice to area to help with discomfort. Get a donut shaped pillow that you can use to sit on. Can take your Celebrex and/or Tylenol for discomfort. Can buy [id number] Voltaren cream and apply the area as directed the label of the box. Follow-up your family medical provider. Coding Level of Care Code ED Electrical Manufacturing Technician for Chg Fwd Exam Expanded Problem Focused
[2021-04-12 10:59] VITALS: BP 134/89; PULSE 85; RESP 12; O2SAT 100
[2021-04-12 11:59] VITALS: BP 134/89; PULSE 85; RESP 12; O2SAT 100
== END 2021-04-12 11:59 | disposition home or self-care (01) ==
PROVIDERS: Emergency Provider Nurse Practitioner Family; PCP Hospitalist
DX: S30.0XXA Contusion of lower back and pelvis, initial encounter (principal); Z79.01 Long term (current) use of anticoagulants; I10 Essential (primary) hypertension; Z86.711 Personal history of pulmonary embolism; W01.0XXA Fall on same level from slipping, tripping and stumbling without subsequent striking against object, initial encounter
CPT/HCPCS: 72220; 99281

== ENCOUNTER 2021-05-03 17:00 | Inpatient (IN) | payer MEDICAID, SELFPAY ==
[2021-05-03] VITALS (8 sets, daily range): BP systolic 114–130; BP diastolic 57–97; PULSE 74–139; RESP 18–20; TEMP 38.7; O2SAT 94–98; BMI 20.7
--- NOTE | 2021-05-03 17:06 | W.ED.NAVMDI ---
HPI - Nausea/Vomiting/Diarrhea General: Chief complaint: Nausea/Vomiting/Diarrhea Stated complaint: N/V X 2 DAYS, UTI Time Seen by Provider: 05/03/21 17:06 History of Present Illness: HPI Narrative: Ms Orourke is a 45-year-old lady with history of hypertension, hyperlipidemia, substance abuse, history of PE, and history of recurrent UTI including history of urosepsis who presents emerged department due to concern of a urinary tract infection. She endorses onset of symptoms approximately 2 days ago. She began having dysuria and lower abdominal aching as well as mild shortness of breath. Since that time her symptoms have continued to worsen and now moderate to severe intensity. She reports that these are similar to prior episodes of urosepsis. She reports compliance with her medication regimen and no missed doses of Eliquis. She has tried [id number] medications without significant relief. Review of Systems General: Reports: 10 or more systems reviewed and unremarkable except in HPI and below PFSH ED PFSH: Medical History Back pain Dyshidrotic hand dermatitis Fibromyalgia GERD (gastroesophageal reflux disease) Gram-negative bacteremia H/O History of hypothyroidism HTN (hypertension) Macrocytosis Migraine without aura, not intractable, without status migrainosus Nasal vestibulitis Nicotine abuse PSVT (paroxysmal supraventricular tachycardia) Pulmonary embolism Pulmonary infarct Pyelonephritis of right kidney Recurrent UTI Renal infarct Spinal stenosis, cervical region Transaminitis Vitamin B12 deficiency anemia Vitamin D deficiency Surgical History H/O colonoscopy 2018 - normal History of hysterectomy with bilateral oophorectomy History of radiofrequency ablation (RFA) procedure for cardiac arrhythmia Hx of appendectomy S/P carpal tunnel release S/P tubal ligation Family History Mother Atrial fibrillation Hypertension Social History Alcohol intake: current Alcohol intake frequency: 0-2 Drinks per Day Lives independently: Yes Household members: spouse and family Marital status: service: No Current occupational status: unemployed History of recent travel: No Current gender identity: Female Female Reproductive History: Date of last menstrual period: 07/31/10 Physical Exam Narrative: EXAM NARRATIVE: GENERAL/CONSTITUTIONAL -ill appearance, uncomfortable Eyes - PERRL, no conjunctival injection ENMT - Atraumatic external nose and ears. Moist mucous membranes NECK - supple. trachea midline CARDIOVASCULAR -tachycardic rate and regular. Peripheral pulses 2+ and equal. Cap refill normal. RESPIRATORY -mildly coarse to auscultation bilaterally. No retractions or accessory muscle use. ABDOMEN/GI -tenderness palpation of the lower abdomen with mild localized tenderness to percussion in the suprapubic region. CVA tenderness present. MSK - Extremities without obvious deformity or tenderness to palpation SKIN - Warm, Dry NEURO - alert and appropriately oriented. Moves all extremities equally. Course ED course: - Patient was seen and evaluated by me at bedside - Patient placed on cardiac monitors, IV access obtained - Initial evaluation notable for ill appearance, patient is febrile and tachycardic -Fluids and antibiotics ordered. - Labs notable for mildly no leukocytosis, macrocytic red blood cells, thrombocytopenia which appears present intermittently and patient history. Metabolic panel notable for mild hypokalemia, elevated T bili without transaminitis of unclear etiology. Urinalysis concerning for urinary tract infection. - Imaging notable for no acute abnormality on chest x-ray. CT abdomen and pelvis with evidence of a sending urinary tract infection. - Upon serial reexamination after treatment the patient was mildly improved though patient has recurrent emesis which is not improved. - Based on patient history, evaluation, labs, and imaging as interpreted the most likely cause of the patient's condition is urosepsis/pyelonephritis - The results of ED evaluation were discussed with the patient including plan for admission due to requirement for level of care not available if discharged to prevent significant worsening/deterioration. -Hospitalist service contacted and agreed admit the patient - Patient was admitted without further deterioration or significant events. Vital Signs: Vital signs: Vital Signs Temperature 98.2 F 05/06/21 11:34 Pulse Rate 76 05/06/21 11:34 Respiratory Rate 18 05/06/21 13:31 Blood Pressure 104/69 05/06/21 11:34 Pulse Oximetry 99 05/06/21 11:34 MDM - Nausea/Vomiting/Diarrhea Medical Records: Attestation: I reviewed the patient's medical records. Lab Data: Attestation: I reviewed the patient's lab results. Labs: Lab Results 05/03/21 05/03/21 05/03/21 17:00 17:00 17:46 WBC 7.4 10^3/uL 10^3/ uL (4.0-10.0) RBC 3.11 10^6/uL L 10 ^6/uL (4.1-5.3) Hgb 12.6 g/dL g/dL (11.5-15.3) Hct 35.4 % L % (37.0-47.0) MCV 113.8 fl H fl (81-99) MCH 40.5 pg H pg (28.0-34.0) MCHC 35.6 g/dL g/dL (30.0-36.0) RDW 18.8 % H % (12.1-15.1) Plt Count 74 10^3/cmm L 10^ 3/cmm (130-400) MPV 12.0 fL H fL (7.4-10.4) Neut % (Auto) 85.5 % % Lymph % (Auto) 10.5 % % [place] % (Auto) 2.8 % % Eos % (Auto) 0.1 % % Baso % (Auto) 0.3 % % Neut # (Auto) 6.33 10^3/uL 10^3 /uL (1.8-7.7) Lymph # (Auto) 0.8 10^3/uL 10^3/ uL (0.8-4.8) [place] # (Auto) 0.2 10^3/uL 10^3/ uL (0.2-0.9) Eos # (Auto) 0.0 10^3/uL 10^3/ uL (0.0-0.8) Baso # (Auto) 0.0 10^3/uL 10^3/ uL (0.0-0.1) Nucleated RBC % (a uto) 0.4 % % Nucleated RBCs # 0.0 /100WBC /100W BC Sodium 136 mmol/L mmol/L (136-145) Potassium 3.3 mmol/L L mmol /L (3.5-5.1) Chloride 100 mmol/L mmol/L (98-107) Carbon Dioxide 22 mmol/L mmol/L (22-29) Anion Gap 17.3 (5-19) BUN 11 mg/dL mg/dL (6-20) Creatinine 0.6 mg/dL mg/dL (0.5-0.9) GFR Calculation 107.6 mL/min mL/m in (90-130) Glucose 102 mg/dL mg/dL (65-115) Calculated Osmolal ity 282 mOsm/kg L mOs m/kg (285-295) Lactate 1.8 mmol/L mmol/L (0.5-2.2) Calcium 9.0 mg/dL mg/dL (8.5-10.5) Total Bilirubin 2.0 mg/dL H mg/dL (0.15-1.2) AST 22 U/L U/L (0-32) ALT 15 U/L U/L (0-33) Alkaline Phosphata se 148 IU/L H IU/L (35-105) Total Protein 6.9 g/dL g/dL (6.6-8.7) Albumin 3.7 g/dL g/dL (3.5-5.2) Globulin 3.2 g/dL g/dL (1.3-4.6) TSH 3.43 uIU/mL uIU/m L (0.27-4.20) HCG, Qual Urine Color Urine Appearance Urine pH Ur Specific Gravit y Urine Protein Urine Glucose (UA) Urine Ketones Urine Blood Urine Nitrate Urine Bilirubin Urine Urobilinogen Ur Leukocyte Rachel ase Urine RBC Urine WBC Ur Squamous Epith Cells Amorphous Sediment Urine Bacteria Urine Opiates Scre en Ur Barbiturates Sc reen Ur Phencyclidine S crn Ur Amphetamines Sc reen U Benzodiazepines Scrn Urine Cocaine Scre en U Marijuana (THC) Screen SARS-CoV-2 Ag (Rap id) 05/03/21 05/03/21 05/03/21 18:11 18:11 18:11 WBC RBC Hgb Hct MCV MCH MCHC RDW Plt Count MPV Neut % (Auto) Lymph % (Auto) [place] % (Auto) Eos % (Auto) Baso % (Auto) Neut # (Auto) Lymph # (Auto) [place] # (Auto) Eos # (Auto) Baso # (Auto) Nucleated RBC % (a uto) Nucleated RBCs # Sodium Potassium Chloride Carbon Dioxide Anion Gap BUN Creatinine GFR Calculation Glucose Calculated Osmolal ity Lactate Calcium Total Bilirubin AST ALT Alkaline Phosphata se Total Protein Albumin Globulin TSH HCG, Qual Negative (Negative) Urine Color Harper (Yellow) Urine Appearance Cloudy (CLEAR) Urine pH 7 (5-7) Ur Specific Gravit y 1.010 (1.005-1.030) Urine Protein 2+ H (Negative) Urine Glucose (UA) Norm (Normal) Urine Ketones 1+ H (Negative) Urine Blood 3+ H (Negative) Urine Nitrate Positive H (Negative) Urine Bilirubin 1+ H (Negative) Urine Urobilinogen 4 mg/dL H mg/dL (Negative) Ur Leukocyte Rachel ase 2+ H (Negative) Urine RBC 5-10 /hpf H /hpf (0-2) Urine WBC Too numerous to c nt /hpf H /hpf (0-5) Ur Squamous Epith Cells None /hpf /hpf (0-5) Amorphous Sediment Not Reportable Urine Bacteria 2+ /hpf H /hpf (NONE) Urine Opiates Scre en Negative ng/mL ng /mL (Negative) Ur Barbiturates Sc reen Negative ng/mL ng /mL (Negative) Ur Phencyclidine S crn Negative ng/mL ng /mL (Negative) Ur Amphetamines Sc reen Negative ng/mL ng /mL (Negative) U Benzodiazepines Scrn Positive ng/mL H ng/mL (Negative) Urine Cocaine Scre en Negative ng/mL ng /mL (Negative) U Marijuana (THC) Screen Negative ng/mL ng /mL (Negative) SARS-CoV-2 Ag (Rap id) 05/03/21 18:41 WBC RBC Hgb Hct MCV MCH MCHC RDW Plt Count MPV Neut % (Auto) Lymph % (Auto) [place] % (Auto) Eos % (Auto) Baso % (Auto) Neut # (Auto) Lymph # (Auto) [place] # (Auto) Eos # (Auto) Baso # (Auto) Nucleated RBC % (a uto) Nucleated RBCs # Sodium Potassium Chloride Carbon Dioxide Anion Gap BUN Creatinine GFR Calculation Glucose Calculated Osmolal ity Lactate Calcium Total Bilirubin AST ALT Alkaline Phosphata se Total Protein Albumin Globulin TSH HCG, Qual Urine Color Urine Appearance Urine pH Ur Specific Gravit y Urine Protein Urine Glucose (UA) Urine Ketones Urine Blood Urine Nitrate Urine Bilirubin Urine Urobilinogen Ur Leukocyte Rachel ase Urine RBC Urine WBC Ur Squamous Epith Cells Amorphous Sediment Urine Bacteria Urine Opiates Scre en Ur Barbiturates Sc reen Ur Phencyclidine S crn Ur Amphetamines Sc reen U Benzodiazepines Scrn Urine Cocaine Scre en U Marijuana (THC) Screen SARS-CoV-2 Ag (Rap id) Negative (Negative) EKG Data^: EKG 1: Attestation: I personally reviewed and interpreted this EKG as follows: EKG interpretation date: 05/03/21 EKG interpretation time: 18:02 Interpretation: Twelve-lead EKG shows a regular sinus rhythm at a rate of 106. GA interval 165, QRS duration 87, QTc 453. Normal axis. Interpretation: Sinus tachycardia, nonspecific ST segment abnormalities not meeting STEMI criteria. Discharge Plan Discharge Patient Disposition: Admitted As Inpatient Admit Provider: Karyna Benito Condition: Stable Discharge Diet: Cardiac Discharge Activity: Increase activity as tolerated Coding Level of Care Code ED Director Of Instrumental Music for Apryl Salas
--- NOTE | 2021-05-03 17:36 | XRR_ITS ---
PROCEDURE INFORMATION: Exam: XR Chest Exam date and time: 05/03/2021 5:36 PM Age: 45 years old Clinical indication: Other: N/v; Additional info: Cough TECHNIQUE: Imaging protocol: XR of the chest. Views: 1 view. COMPARISON: CR (CHEST, ) 03/31/2021 8:26 PM FINDINGS: Lungs: Unremarkable. No consolidation. Pleural spaces: Unremarkable. No pleural effusion. No pneumothorax. Heart/Mediastinum: Unremarkable. No cardiomegaly. Bones/joints: Unremarkable. XR/XR chest 1V portable [id number] IMPRESSION: No acute findings. Radiation Dose CTDIVOL = (mGy): DLP = (mGy-cm)
--- NOTE | 2021-05-03 17:36 | ECG_ITS ---
[facility] Test Date: 2021-05-03 Pat Name: Denisa Orourke Department: Room: Gender: Female Transport Medic: : 1975 Requested By: Steven Keane Order Number: [id number] Valerie MD: DM MEJIA Measurements Intervals [place] Rate: 107 P: 59 [place]: 165 QRS: -5 QRSD: 87 T: 87 QT: 339 QTc: 453 Interpretive Statements SINUS TACHYCARDIA POSSIBLE LEFT ATRIAL ENLARGEMENT [-0.1mV P-WAVE IN V1/V2] POSSIBLE RIGHT VENTRICULAR CONDUCTION DELAY [RSR (QR) IN V1/V2] POSSIBLE ANTERIOR MYOCARDIAL INFARCTION , OF INDETERMINATE AGE [30 ms Q WAVE IN V3/V4, OR R < 0.2 mV IN V4] Compared to ECG 03/31/2021 22:12:32 Myocardial infarct finding now present Sinus rhythm no longer present Electronically Signed On 05-03-2021 20:22:46 CDT by DM MEJIA [id number]
[2021-05-03] MEDS: sodium chloride 0.9% 1,850.67 ML 1850.67 ML IV (18:03)
[2021-05-03] MEDS: cefepime 2,000 MG in sodium chloride 0.9% (plus) 50 ML 100 MG IV (18:09)
[2021-05-03 18:12] LABS: Basophils % 0.3 %; Eosinophils % 0.1 %; Hematocrit 35.4 % (37.0-47.0); Hemoglobin 12.6 g/dL (11.5-15.3); Lymphocytes # 0.8 10^3/uL (0.8-4.8); Lymphocytes % 10.5 %; Mean Corpuscular HGB Conc 35.6 g/dL (30.0-36.0); Mean Corpuscular Hemoglobin 40.5 pg (28.0-34.0); Mean Corpuscular Volume 113.8 fl (81-99); Monocytes # 0.2 10^3/uL (0.2-0.9); Monocytes % 2.8 %; Neutrophils # 6.33 10^3/uL (1.8-7.7); Neutrophils % 85.5 %; Nucleated Red Blood Cells % 0.4 %; Platelet Count 74 10^3/cmm (130-400); Red Blood Count 3.11 10^6/uL (4.1-5.3); Red Cell Distribution Width 18.8 % (12.1-15.1); White Blood Count 7.4 10^3/uL (4.0-10.0)
--- NOTE | 2021-05-03 18:21 | CTR_ITS ---
PROCEDURE INFORMATION: Exam: CT Abdomen And Pelvis With Contrast Exam date and time: 05/03/2021 6:21 PM Age: 45 years old Clinical indication: Nausea and vomiting; Abdominal pain; Generalized; Prior surgery; Surgery type: Hyst, appy; Additional info: N/v/pain TECHNIQUE: Imaging protocol: Computed tomography of the abdomen and pelvis with contrast. Radiation optimization: All CT scans at this facility use at least one of these dose optimization techniques: automated exposure control; mA and/or kV adjustment per patient size (includes targeted exams where dose is matched to clinical indication); or iterative reconstruction. Contrast material: OMNI 300; Contrast volume: 95 ml; Contrast route: INTRAVENOUS (IV); COMPARISON: CT abdomen pelvis w con* [id number] 12/10/2020 6:10 AM RADIATION DOSE METRICS: Total DLP (mGy-cm): 943.08 FINDINGS: Lungs: Patchy irregular radiopaque foci in the subpleural aspect of the posterior lower lobes. Liver: Diffuse liver steatosis. No focal liver mass. Gallbladder and bile ducts: Normal. No calcified stones. No ductal dilation. Pancreas: Normal. No ductal dilation. Spleen: Normal. No splenomegaly. Adrenal glands: Normal. No mass. Kidneys and ureters: Perirenal stranding greater on right than left. Increased urothelial enhancement bilaterally. Stomach and bowel: Unremarkable. No obstruction. No mucosal thickening. Appendix: Appendectomy. Intraperitoneal space: Unremarkable. No free air. No significant fluid collection. Vasculature: Abdominopelvic vascular structures are patent. Minimal atherosclerotic plaque abdominal aorta. Lymph nodes: Unremarkable. No enlarged lymph nodes. Urinary bladder: Thick-walled bladder with increased mucosal and submucosal enhancement. Reproductive: Hysterectomy. Bones/joints: Bilateral L5 pars interarticularis defects. Grade 1 L5-S1 spondylolisthesis. No acute fracture. Soft tissues: Unremarkable. CT/CT abdomen pelvis w con* [id number] IMPRESSION: Cystitis is suspected with bilateral ascending urinary tract infections. Radiation Dose CTDIVOL = (mGy): DLP = 943.08 (mGy-cm)
[2021-05-03] MEDS: iohexol 300 mg/mL 100 mL Btl IV (18:35)
[2021-05-03 18:40] LABS: Lactate (Lactic Acid level) 1.8 mmol/L (0.5-2.2)
[2021-05-03 18:53] LABS: Alanine Aminotransferase 15 U/L (0-33); Albumin Level 3.7 g/dL (3.5-5.2); Alkaline Phosphatase 148 IU/L (35-105); Anion Gap 17.3 (5-19); Aspartate Amino Transferase 22 U/L (0-32); Blood Urea Nitrogen 11 mg/dL (6-20); Carbon Dioxide 22 mmol/L (22-29); Chloride 100 mmol/L (98-107); Globulin 3.2 g/dL (1.3-4.6); Glomerular Filtration Rate 107.6 mL/min (90-130); Glucose 102 mg/dL (65-115); Osmolality Calculated 282 mOsm/kg (285-295); Potassium 3.3 mmol/L (3.5-5.1); Sodium 136 mmol/L (136-145); Thyroid Stimulating Hormone 3.43 uIU/mL (0.27-4.20); Total Protein 6.9 g/dL (6.6-8.7)
--- NOTE | 2021-05-03 19:00 | PC.NURSE ---
Received report from CORNELIUS Burrell pt in CT. c/o about abdominal pain. Provider has been notified
[2021-05-03 19:05] LABS: Urine Appearance Cloudy (CLEAR); Urine Color Orange (Yellow); pH Urine 7 (5-7)
[2021-05-03 19:06] LABS: Add Urine Microscopic? YES; Bilirubin Urine 1+ (Negative); Blood Urine 3+ (Negative); Glucose Urine UA Norm (Normal); Ketones Urine 1+ (Negative); Leukocyte Esterase Urine 2+ (Negative); Nitrate Urine Positive (Negative); Protein Urine 2+ (Negative); Urobilinogen Urine 4 mg/dL (Negative)
[2021-05-03 19:07] LABS: Add Urine Culture? Yes; Bacteria Urine 2+ /hpf; HCG Qualitative Urine. Negative (Negative); WBC Urine TOO NUMEROUS TO CNT /hpf (0-5)
[2021-05-03 19:21] LABS: SARS Covid-2 Antigen Negative (Negative)
[2021-05-03] MEDS: ondansetron 2 mg/ML SDV 2 mL 4 MG IVP (19:30)
--- NOTE | 2021-05-03 19:30 | PC.NURSE ---
Pt vomited 300plus emesis. Notified provider received orders
[2021-05-03] MEDS: fentaNYL 50 mcg/mL INJ 2mL IVP ×2 (19:36→21:36)
[2021-05-03] MEDS: metoclopramide 5 mg/mL SDV 2 mL 10 MG IVP (21:00)
--- NOTE | 2021-05-03 21:22 | PC.NURSE ---
Pt stated she had no relief from Fentanyl and zofran. Attempt to review with pt previous medication and that it didn't help after the conversation. Pt stated it did help i was able to sleep and pain did go down to 2-3/10. Provide second dose of Fentanyl and Reglan
[2021-05-03] MEDS: sodium chloride 0.9% (100 ml) 100 ML 400 ML (21:34)
--- NOTE | 2021-05-03 21:55 | P.HP_ITS ---
Providers/Chief Complaint Admitting Physician: Karyna Benito MD Primary Care Provider: Arpan Wallace MD Chief Complaint: N/V X 2 DAYS, UTI History of Present Illness Denisa Orourke is a 45 year old female with a past medical history of DVT and bilateral pulmonary emboli, diastolic CHF, history of alcohol abuse, history of PSVT, GERD, hypertension, presenting today with 2 to 3 days of nausea vomiting, flank pain and dysuria. In the ER was noted to have fever up to 101.6 Fahrenhe it, associated tachycardia, normal sinus rhythm noted on EKG, UA with positive nitrate, positive leukocyte esterase, multiple WBCs and 2+ bacteria. Urine culture is pending. Patient reports a history of recurrent UTIs in the past. CT abdomen pelvis ruled out any obstructive lesions, imaging suggestive of cystitis with bilateral ascending urinary tract infections. Perirenal stranding was noted right more than left. Review of Systems General: Reports: 10 or more systems reviewed and unremarkable except in HPI and below Const: Denies: fever(s), chills or body aches Eyes: Denies: change in vision, blurry vision or photophobia ENMT: Reports: hoarseness; Denies: throat pain, enlarged tonsils, odynophagia or nasal congestion Card: Denies: chest pain, palpitations, irregular heart rhythm, edema, swelling of feet/ankles, lightheadedness, pre-syncope, dyspnea on exertion or orthopnea Resp: Denies: dyspnea, productive cough, non-productive cough, wheezing, stridor, pain on inspiration, change in phlegm color, hemoptysis or chest congestion GI: Denies: abdominal pain, nausea, vomiting, hematemesis, coffee ground emesis, dysphagia, heartburn, diarrhea, constipation, GI cramping, change in stool character, hematochezia or melena : Denies: flank pain, difficulty voiding, dysuria, urinary frequency, urinary urgency, urinary hesitancy or hematuria Musc: Denies: neck pain, back pain, extremity pain, joint swelling, joint warmth or deformity Neuro: Denies: headache(s), numbness in extremities, weakness in extremities, sensory changes, difficulty walking, frequent falls, dizziness, vertigo, behavioral changes, Slurred speech present or seizure-like activity Psych: Denies: anxiety, depression, suicidal ideation or homicidal ideation Endo: Denies: polyuria, polydipsia, tired all the time, cold intolerance or hot flashes Maxime/Lymph: Denies: easy bruising or easy bleeding Medications/Allergies Home Medications Medication Instructions Recorded Confirmed Last Taken Type cetirizine [Zyrtec] 10 mg PO BID PRN 01/04/20 03/31/21 12/09/20 History multivitamin with folic acid 1 tab PO DAILY #30 tab 12/11/20 03/31/21 03/06/21 Rx [Thera] apixaban [Eliquis] 5 mg PO BID #90 tab 03/09/21 03/31/21 03/31/21 Rx ondansetron HCl 4 mg tablet 4 mg PO Q8H PRN 03/22/21 03/31/21 03/31/21 History celecoxib 100 mg capsule 100 mg PO BID PRN #60 cap 04/02/21 Unknown Rx Allergies Allergy/AdvReac Type Severity Reaction Status Date / Time Sulfa (Sulfonamide Allergy Intermediate ALGY-Rash Verified 03/31/21 16:43 Antibiotics) methocarbamol [From Robaxin] Allergy Mild ADR-Itching Verified 03/31/21 16:43 acetaminophen [From Percocet] Allergy ALGY-Swell Verified 03/31/21 16:43 Lip/Tongue/Throat amoxicillin [From Augmentin] Allergy swelling Verified 03/31/21 16:43 azithromycin [From Zithromax] Allergy ADR-Itching Verified 03/31/21 16:43 clavulanic acid Allergy swelling Verified 03/31/21 16:43 [From Augmentin] clindamycin [From Cleocin] Allergy ALGY-Rash Verified 03/31/21 16:43 codeine Allergy ADR-Itching Verified 03/31/21 16:43 cyclobenzaprine Allergy ADR-Swelling Verified 03/31/21 16:43 [From Flexeril] of the Eye Egg Derived Allergy ADR-Vomitin Verified 03/31/21 16:43 g hydrocodone Allergy ALGY-Swell Verified 03/31/21 16:43 Lip/Tongue/Throat hydroxyzine Allergy ALGY-Hives Verified 03/31/21 16:43 loratadine [From Claritin] Allergy Unknown Verified 03/31/21 16:43 oxycodone [From Percocet] Allergy ALGY-Swell Verified 03/31/21 16:43 Lip/Tongue/Throat tizanidine Allergy ADR-Itching Verified 03/31/21 16:43 tramadol Allergy ALGY-Rash Verified 03/31/21 16:43 PFSH Acute PFSH: Medical History Back pain Dyshidrotic hand dermatitis Fibromyalgia GERD (gastroesophageal reflux disease) Gram-negative bacteremia H/O History of hypothyroidism HTN (hypertension) Macrocytosis Migraine without aura, not intractable, without status migrainosus Nasal vestibulitis Nicotine abuse PSVT (paroxysmal supraventricular tachycardia) Pulmonary embolism Pulmonary infarct Pyelonephritis of right kidney Recurrent UTI Renal infarct Spinal stenosis, cervical region Transaminitis Vitamin B12 deficiency anemia Vitamin D deficiency Surgical History H/O colonoscopy 2018 - normal History of hysterectomy with bilateral oophorectomy History of radiofrequency ablation (RFA) procedure for cardiac arrhythmia Hx of appendectomy S/P carpal tunnel release S/P tubal ligation Family History Mother Atrial fibrillation Hypertension Social History Alcohol intake: current Alcohol intake frequency: 0-2 Drinks per Day Lives independently: Yes Household members: spouse and family Marital status: service: No Current occupational status: unemployed History of recent travel: No Current gender identity: Female Female Reproductive History: Date of last menstrual period: 07/31/10 Vitals/I&O/Wt Last Vital Signs Temp 101.6 F H 05/03/21 17:25 Pulse 139 H 05/03/21 21:21 Resp 18 05/03/21 21:36 BP 130/78 05/03/21 21:21 Pulse Ox 96 05/03/21 21:21 05/03/21 05/03/21 05/03/21 06:59 14:59 22:59 Output Total 200 / 200 Balance -200 / -200 Weight last 48 hrs Weight 61.689 kg Physical Exam Narrative: EXAM NARRATIVE: General: No acute distress, AO x3 HEENT: PERRLA, pupils bilaterally equal and reactive, pallors not present Chest: Normal vesicular breath sounds, no added sounds, equal good air entry bilaterally CVS: S1-S2 regular, no murmurs, no tachycardia, no gallops, no rubs Abdomen: Soft, right flank tenderness, no organomegaly, bowel sounds present Neuro: No focal deficits, no facial deformity, AO x3, power 5/5 in all limbs Data : 05/03/21 17:00 05/03/21 17:46 Micro: Microbiology 05/03/21 17:46 Blood Culture - Preliminary Blood SPECIMEN COLLECTED 05/03/21 17:46 Blood Culture - Preliminary Blood SPECIMEN COLLECTED Attestation for Other Data: I personally reviewed and interpreted the following: Other data: Laboratory Results WBC 7.4 10^3/uL (4.0-10.0) 05/03/21 17:00 RBC 3.11 10^6/uL (4.1-5.3) L 05/03/21 17:00 Hgb 12.6 g/dL (11.5-15.3) 05/03/21 17:00 Hct 35.4 % (37.0-47.0) L 05/03/21 17:00 MCV 113.8 fl (81-99) H 05/03/21 17:00 MCH 40.5 pg (28.0-34.0) H 05/03/21 17:00 MCHC 35.6 g/dL (30.0-36.0) 05/03/21 17:00 RDW 18.8 % (12.1-15.1) H 05/03/21 17:00 Plt Count 74 10^3/cmm (130-400) L 05/03/21 17:00 MPV 12.0 fL (7.4-10.4) H 05/03/21 17:00 Neut % (Auto) 85.5 % 05/03/21 17:00 Lymph % (Auto) 10.5 % 05/03/21 17:00 [place] % (Auto) 2.8 % 05/03/21 17:00 Eos % (Auto) 0.1 % 05/03/21 17:00 Baso % (Auto) 0.3 % 05/03/21 17:00 Neut # (Auto) 6.33 10^3/uL (1.8-7.7) 05/03/21 17:00 Lymph # (Auto) 0.8 10^3/uL (0.8-4.8) 05/03/21 17:00 [place] # (Auto) 0.2 10^3/uL (0.2-0.9) 05/03/21 17:00 Eos # (Auto) 0.0 10^3/uL (0.0-0.8) 05/03/21 17:00 Baso # (Auto) 0.0 10^3/uL (0.0-0.1) 05/03/21 17:00 Nucleated RBC % (auto) 0.4 % 05/03/21 17:00 Nucleated RBCs # 0.0 /100WBC 05/03/21 17:00 Sodium 136 mmol/L (136-145) 05/03/21 17:46 Potassium 3.3 mmol/L (3.5-5.1) L 05/03/21 17:46 Chloride 100 mmol/L (98-107) 05/03/21 17:46 Carbon Dioxide 22 mmol/L (22-29) 05/03/21 17:46 Anion Gap 17.3 (5-19) 05/03/21 17:46 BUN 11 mg/dL (6-20) 05/03/21 17:46 Creatinine 0.6 mg/dL (0.5-0.9) 05/03/21 17:46 GFR Calculation 107.6 mL/min (90-130) 05/03/21 17:46 Glucose 102 mg/dL (65-115) 05/03/21 17:46 Calculated Osmolality 282 mOsm/kg (285-295) L 05/03/21 17:46 Lactate 1.8 mmol/L (0.5-2.2) 05/03/21 17:00 Calcium 9.0 mg/dL (8.5-10.5) 05/03/21 17:46 Total Bilirubin 2.0 mg/dL (0.15-1.2) H 05/03/21 17:46 AST 22 U/L (0-32) 05/03/21 17:46 ALT 15 U/L (0-33) 05/03/21 17:46 Alkaline Phosphatase 148 IU/L (35-105) H 05/03/21 17:46 Total Protein 6.9 g/dL (6.6-8.7) 05/03/21 17:46 Albumin 3.7 g/dL (3.5-5.2) 05/03/21 17:46 Globulin 3.2 g/dL (1.3-4.6) 05/03/21 17:46 TSH 3.43 uIU/mL (0.27-4.20) 05/03/21 17:46 HCG, Qual Negative (Negative) 05/03/21 18:11 Urine Color [place] (Yellow) 05/03/21 18:11 Urine Appearance Cloudy (CLEAR) 05/03/21 18:11 Urine pH 7 (5-7) 05/03/21 18:11 Ur Specific [place] 1.010 (1.005-1.030) 05/03/21 18:11 Urine Protein 2+ (Negative) H 05/03/21 18:11 Urine Glucose (UA) Norm (Normal) 05/03/21 18:11 Urine Ketones 1+ (Negative) H 05/03/21 18:11 Urine Blood 3+ (Negative) H 05/03/21 18:11 Urine Nitrate Positive (Negative) H 05/03/21 18:11 Urine Bilirubin 1+ (Negative) H 05/03/21 18:11 Urine Urobilinogen 4 mg/dL (Negative) H 05/03/21 18:11 Ur Leukocyte Esterase 2+ (Negative) H 05/03/21 18:11 Urine RBC 5-10 /hpf (0-2) H 05/03/21 18:11 Urine WBC Too numerous to cnt /hpf (0-5) H 05/03/21 18:11 Ur Squamous Epith Cells None /hpf (0-5) 05/03/21 18:11 Amorphous Sediment Not Reportable 05/03/21 18:11 Urine Bacteria 2+ /hpf (NONE) H 05/03/21 18:11 Urine Opiates Screen Negative ng/mL (Negative) 05/03/21 18:11 Ur Barbiturates Screen Negative ng/mL (Negative) 05/03/21 18:11 Ur Phencyclidine Scrn Negative ng/mL (Negative) 05/03/21 18:11 Ur Amphetamines Screen Negative ng/mL (Negative) 05/03/21 18:11 U Benzodiazepines Scrn Positive ng/mL (Negative) H 05/03/21 18:11 Urine Cocaine Screen Negative ng/mL (Negative) 05/03/21 18:11 U Marijuana (THC) Screen Negative ng/mL (Negative) 05/03/21 18:11 SARS-CoV-2 Ag (Rapid) Negative (Negative) 05/03/21 18:41 Impressions Chest X-Ray 05/03/21 17:36 IMPRESSION: No acute findings. Radiation Dose CTDIVOL = (mGy): DLP = (mGy-cm) Abdomen/Pelvis CT 05/03/21 18:21 Lungs: Patchy irregular radiopaque foci in the subpleural aspect of the posterior lower lobes. Liver: Diffuse liver steatosis. No focal liver mass. Gallbladder and bile ducts: Normal. No calcified stones. No ductal dilation. Pancreas: Normal. No ductal dilation. Spleen: Normal. No splenomegaly. Adrenal glands: Normal. No mass. Kidneys and ureters: Perirenal stranding greater on right than left. Increased urothelial enhancement bilaterally. Stomach and bowel: Unremarkable. No obstruction. No mucosal thickening. Appendix: Appendectomy. Intraperitoneal space: Unremarkable. No free air. No significant fluid collection. Vasculature: Abdominopelvic vascular structures are patent. Minimal atherosclerotic plaque abdominal aorta. Lymph nodes: Unremarkable. No enlarged lymph nodes. Urinary bladder: Thick-walled bladder with increased mucosal and submucosal enhancement. Reproductive: Hysterectomy. Bones/joints: Bilateral L5 pars interarticularis defects. Grade 1 L5-S1 spondylolisthesis. No acute fracture. Soft tissues: Unremarkable. IMPRESSION: Cystitis is suspected with bilateral ascending urinary tract infections. Radiation Dose CTDIVOL = (mGy): DLP = 943.08 (mGy-cm) A&P Assessment and plan (1) Pyelonephritis: Pyelonephritis, as evidenced by fever, signs of UTI, flank tenderness, perinephric stranding noted on CT Based on prior urine cultures, start ceftriaxone 1 g IV daily empirically. Await urine cultures, await blood cultures, collected prior to onset of antibiotics. As needed morphine for pain control. Status: Acute Additional A&P Information History of DVT and PE: Continue Eliquis 5 mg p.o. twice daily DVT prophylaxis: Currently on Eliquis Full code Attestations Medical Necessity Statement*: Anticipate greater than 2 midnight admission for the management of pyelonephritis, need for IV antibiotics, IV fluids given poor p.o. intake Coding Level of Care Code Acute Backhaul Driver for [facility] Diagnoses Pyelonephritis N12
--- NOTE | 2021-05-03 22:37 | PC.NURSE ---
Report CORNELIUS Turner
[2021-05-03] MEDS: sodium chlor 0.9% + KCl 20 mEq 20 MEQ/1,000 ML BAG 100 MEQ IV (23:07)
[2021-05-03 23:21] LABS: Amphetamines Screen Urine Negative (Negative); Barbiturates Screen Urine Negative (Negative); Benzodiazepines Screen Urine Positive (Negative); Cocaine Screen Urine Negative (Negative); Opiate Screen Urine Negative (Negative); PCP Screen Urine Negative (Negative); THC Screen Urine Negative (Negative)
[2021-05-03] MEDS: cefTRIAXone 1,000 MG in sodium chloride 0.9% (plus) 50 ML 100 MG IV (23:21)
--- NOTE | 2021-05-03 23:26 | PC.NURSE ---
ADMIT NOTE Pt was received to floor from ER at 2250 via [employer]. Alert and oriented. Pleasant. Says she has been sick for 2 days with pain/tenderness across lower abdomen and around to both flan/lower back areas. Reports several urinary symptoms. Also reports fever today to 102.4, and nausea with vomiting. Says the Reglan in ER did seem to help with the nausea. CIWA assessment done. Tells me her last drink was 4 days ago and she was actually supposed to start classes at [employer] tomorrow. IV fluids started at 100ml/hr rate. IV Rocephin started. RN completing admission assessment. Home meds removed and placed in Pyxis. patient services representative applied
[2021-05-04] VITALS (12 sets, daily range): BP systolic 100–116; BP diastolic 64–76; PULSE 87–119; RESP 16–18; TEMP 36.9–37.3; O2SAT 94–99
--- NOTE | 2021-05-04 00:19 | PC.NURSE ---
i reported high pulse 119 to nurse
[2021-05-04] MEDS: morphine 4 mg/mL SDV 1 mL 2 MG IVP ×4 (04:07→21:03)
[2021-05-04] MEDS: ondansetron 2 mg/ML SDV 2 mL 4 MG IVP ×4 (04:07→23:06)
--- NOTE | 2021-05-04 04:26 | PC.NURSE ---
i reported high pulse to nurse 112
--- NOTE | 2021-05-04 05:28 | PC.NURSE ---
SHIFT SUMMARY Has rested well since admission. IV infusing at 100ml/hr rate. Has received Morphine and Zofran IV X1 for nausea c/o and abd/flank pain. Had large loose BM this am.
[2021-05-04 05:57] LABS: Basophils % 0.3 %; Eosinophils % 0.2 %; Hematocrit 29.7 % (37.0-47.0); Hemoglobin 10.2 g/dL (11.5-15.3); Lymphocytes % 15.2 %; Mean Corpuscular HGB Conc 34.3 g/dL (30.0-36.0); Mean Corpuscular Hemoglobin 41.3 pg (28.0-34.0); Mean Corpuscular Volume 120.2 fl (81-99); Mean Platelet Volume 12.8 fL (7.4-10.4); Monocytes # 0.3 10^3/uL (0.2-0.9); Monocytes % 4.1 %; Neutrophils # 5.21 10^3/uL (1.8-7.7); Neutrophils % 79.4 %; Nucleated Red Blood Cells % 0 %; Platelet Count 47 10^3/cmm (130-400); Red Blood Count 2.47 10^6/uL (4.1-5.3); Red Cell Distribution Width 19.3 % (12.1-15.1); White Blood Count 6.6 10^3/uL (4.0-10.0)
[2021-05-04 06:23] LABS: Alanine Aminotransferase 12 U/L (0-33); Albumin Level 2.8 g/dL (3.5-5.2); Alkaline Phosphatase 98 IU/L (35-105); Aspartate Amino Transferase 25 U/L (0-32); Blood Urea Nitrogen 10 mg/dL (6-20); Calcium 7.9 mg/dL (8.5-10.5); Carbon Dioxide 21 mmol/L (22-29); Chloride 104 mmol/L (98-107); Globulin 2.6 g/dL (1.3-4.6); Glomerular Filtration Rate 107.6 mL/min (90-130); Glucose 81 mg/dL (65-115); Osmolality Calculated 280 mOsm/kg (285-295); Sodium 136 mmol/L (136-145); Total Bilirubin 0.7 mg/dL (0.15-1.2); Total Protein 5.4 g/dL (6.6-8.7)
[2021-05-04 06:29] LABS: Procalcitonin 22.53 ng/mL (0-0.5)
[2021-05-04 06:33] LABS: Anion Gap 14.7 (5-19); Potassium 3.7 mmol/L (3.5-5.1)
[2021-05-04] MEDS: pantoprazole DR 40 mg Tablet PO (08:33)
[2021-05-04] MEDS: apixaban 5 mg Tablet PO ×2 (08:33→18:23)
[2021-05-04] MEDS: sodium chlor 0.9% + KCl 20 mEq 20 MEQ/1,000 ML BAG 100 MEQ IV (09:08)
--- NOTE | 2021-05-04 09:19 | PC.PHAR ---
pt states she takes care of her own medications-pt brought in most of her medications-notes are made in the pharmacy comments-
--- NOTE | 2021-05-04 10:19 | PC.CHAP ---
Pastoral Care Encounter/Spiritual Assessment Type of Contact [] Declined poll clerk visit [] Patient/Family/Request visit [] Outpatient visit [] Follow-up visit [] Physician referral [] Code/Alert [] Routine visit [] Staff referral [] Actively dying [] Patient sleeping [] Family support [] [] Out of room [] Palliative care [] [x] Receiving care in room [] Pre-surgical visit [] Trauma [] Long length of stay [] ICU visit [] Other: Relational/Emotional Strength [] Patient feels connected with others/family/visitors/staff [] Distress [] Loneliness/isolation [] Abandonment Spirituality of Patient [] Person of Lisa [] Attends Mandaeism of their Lisa [] Believes in Prayer [] Reads Bible or Roman Catholic materials [] There are Spiritual issues to be addressed Group Exercise Manager Interventions [] Prayer [] Active listening [] Non-anxious presence [] Spiritual/emotional support [] Crisis/trauma care [] Spiritual counseling [] Bereavement support [] Provided bereavement packet [] Provided Bible/devotional materials [] Provided toy/stuffed animal, coloring book to patient or family member [] Provided Communion [] Anointing/[place] [] Salvation [] Completed spiritual assessment [] Other: Impact on Illness or Injury [] Angry [] Fearful [] Anxious [] Often cries [] Exhaustion [] Unable to work [] Unable to attend confucianism [] Unable to walk/stand [] Unable to read [] Unable to drive [] Unable to eat/drink [] Unable to sleep [] Unable to be with family [] Patient intubated [] Other: Summary Time spent with patient
[2021-05-04] MEDS: sodium chloride 0.9% 1,000 ML 75 ML IV ×2 (10:42→23:59)
[2021-05-04] MEDS: cetirizine 10 mg Tablet PO (11:37)
--- NOTE | 2021-05-04 13:18 | PM.PN ---
Subjective Subjective: Interval history: Patient was seen and examined this morning, she is still endorsing of dysuria and back pain radiating towards her right lower quadrant She did vomit once today Also endorsing liquid diarrhea requested C. difficile panel inc frequency of Zofran Vitals/I&O/Wt Last Vital Signs Temp 98.8 F 05/04/21 11:21 Pulse 87 05/04/21 11:21 Resp 16 05/04/21 11:21 BP 116/76 05/04/21 11:21 Pulse Ox 99 05/04/21 11:21 05/03/21 05/04/21 05/04/21 22:59 06:59 14:59 Intake Total 170 / 170 1000 / 1000 Output Total 200 / 200 700 / 900 Balance -200 / -200 -530 / -730 1000 / 1000 Weight last 48 hrs Weight 61.689 kg Weight 61.689 kg Physical Exam Narrative: EXAM NARRATIVE: Patient was sitting in her bed in distress complaining of back pain radiating towards her right and left quadrant While saturating well on room air Clinically looks dehydrated CVA tenderness positive Abdomen soft without signs of peritonitis S1, S2 sinus rhythm No audible stridor or wheezing Mood and affect No focal deficits Data : 05/04/21 04:58 05/04/21 04:58 Micro: Microbiology 05/03/21 17:46 Blood Culture - Preliminary Blood SPECIMEN COLLECTED 05/03/21 17:46 Blood Culture - Preliminary Blood SPECIMEN COLLECTED A&P Assessment and plan (1) Pyelonephritis: Status: Acute (2) Vitamin B12 deficiency anemia: Status: Acute (3) Folic acid deficiency: Status: Acute Additional A&P Information Pyelonephritis Patient is still endorsing nausea, vomiting and dysuria Currently on ceftriaxone, will follow with urine culture to assess de-escalate antibiotics CVA tenderness positive Zofran for nausea DVT prophylaxis covered with anticoagulating agent GI soft diet Diarrhea: Rule out C. difficile Full code Check gonorrhea, chlamydia panel Attestations Medical Necessity Statement*: Continue medical management Time Spent in Patient Care: less than 15 minutes Coding Level of Care Code Acute City Dispatch Supervisor for [facility] Diagnoses Pyelonephritis N12 Vitamin B12 deficiency anemia D51.9 Folic acid deficiency E53.8
[2021-05-04] MEDS: ketorolac 30 mg/mL INJ 15 MG IVP (15:00)
[2021-05-04] MEDS: CELEcoxib 100 mg Capsule PO (18:47)
[2021-05-04] MEDS: cefTRIAXone 1,000 MG in sodium chloride 0.9% (plus) 50 ML 100 MG IV (21:12)
[2021-05-05] VITALS (10 sets, daily range): BP systolic 102–127; BP diastolic 68–87; PULSE 77–107; RESP 15–20; TEMP 36.6–37.8; O2SAT 95–100
[2021-05-05] MEDS: ondansetron 2 mg/ML SDV 2 mL 4 MG IVP ×5 (03:50→23:47)
[2021-05-05] MEDS: morphine 4 mg/mL SDV 1 mL 2 MG IVP ×5 (03:51→23:47)
[2021-05-05 05:11] LABS: Basophils % 0.3 %; Eosinophils # 0.1 10^3/uL (0.0-0.8); Eosinophils % 3.1 %; Hematocrit 28.2 % (37.0-47.0); Hemoglobin 9.4 g/dL (11.5-15.3); Lymphocytes # 0.3 10^3/uL (0.8-4.8); Lymphocytes % 10.6 %; Mean Corpuscular HGB Conc 33.3 g/dL (30.0-36.0); Mean Corpuscular Volume 123.1 fl (81-99); Mean Platelet Volume 12.8 fL (7.4-10.4); Monocytes # 0.1 10^3/uL (0.2-0.9); Monocytes % 3.7 %; Neutrophils # 2.63 10^3/uL (1.8-7.7); Neutrophils % 81.7 %; Nucleated Red Blood Cells % 0 %; Platelet Count 43 10^3/cmm (130-400); Red Blood Count 2.29 10^6/uL (4.1-5.3); Red Cell Distribution Width 18.9 % (12.1-15.1); White Blood Count 3.2 10^3/uL (4.0-10.0)
[2021-05-05] MEDS: benzonatate 100 mg Capsule PO (05:26)
[2021-05-05 05:37] LABS: Anion Gap 11.6 (5-19); Blood Urea Nitrogen 9 mg/dL (6-20); Calcium 7.9 mg/dL (8.5-10.5); Carbon Dioxide 20 mmol/L (22-29); Chloride 106 mmol/L (98-107); Glomerular Filtration Rate 90.1 mL/min (90-130); Glucose 79 mg/dL (65-115); Osmolality Calculated 276 mOsm/kg (285-295); Potassium 3.6 mmol/L (3.5-5.1); Sodium 134 mmol/L (136-145)
[2021-05-05] MEDS: cetirizine 10 mg Tablet PO (08:49)
[2021-05-05] MEDS: pantoprazole DR 40 mg Tablet PO (08:49)
[2021-05-05] MEDS: apixaban 5 mg Tablet PO ×2 (08:49→17:07)
[2021-05-05] MEDS: guaiFENesin-dextromethorphan UDC 10 mL 5 ML PO ×3 (09:11→18:48)
--- NOTE | 2021-05-05 12:21 | PM.PN ---
Subjective Subjective: Interval history: Patient is endorsing nonproductive cough, that is making her abdominal muscles very sore because of excessive coughing, afebrile, no leukocytosis, stool endorsing diarrhea, sent C. difficile panel, she is endorsing mild swelling of her face which she is attributing to the antibiotic she received in the ER however has been getting Zyrtec, patient endorsing allergy to Benadryl, endorsing chest congestion as well Nurse at the bedside, plan was devised to add antitussive, send C. difficile panel, continue antibiotics, discontinue IV fluids, urine culture report is pending Low-grade fever 100.0 Vitals/I&O/Wt Last Vital Signs Temp 100.0 F H 05/05/21 11:12 Pulse 91 05/05/21 11:12 Resp 16 05/05/21 11:12 BP 113/77 05/05/21 11:12 Pulse Ox 100 05/05/21 11:12 05/04/21 05/05/21 05/05/21 22:59 06:59 14:59 Intake Total 360 / 1600 1646.25 / 3246.25 Output Total 600 / 600 580 / 1180 Balance -240 / 1000 1066.25 / 2066.25 Weight last 48 hrs Weight 61.689 kg Weight 61.689 kg Physical Exam Narrative: EXAM NARRATIVE: female, appears more than stated age Looks clinically euvolemic Mild edema noted below her eyes otherwise no signs of anaphylaxis or skin rash S1, S2 sinus rhythm Bilateral breath sounds without stridor however mild wheezing noted at the bases Abdomen soft no signs of peritonitis Does have CVA tenderness Lower symmetry no edema No neurological deficit Saturating well on room air Data : 05/05/21 04:45 05/05/21 04:45 Micro: Microbiology 05/03/21 18:11 Urine Culture - Preliminary Urine,Clean Catch Gram Negative Rods 05/03/21 17:46 Blood Culture - Preliminary Blood NEGATIVE TO DATE 05/03/21 17:46 Blood Culture - Preliminary Blood NEGATIVE TO DATE A&P Assessment and plan (1) Pyelonephritis: Status: Acute Additional A&P Information Noncomplicated pyelonephritis No active signs of sepsis Low-grade fever noted Endorsing chest congestion, wheezing, cough, Discontinue IV fluids& ceftriaxone, escalate to Zosyn For mild facial swelling will do steroids along Zyrtec Antitussive Robitussin for cough CDIFF panel sent patient is having active diarrhea Follow-up with urine cultures Plan to discharge her tomorrow if clinically stays stable Full code Cardiac diet DVT prophylaxis Eliquis Attestations Medical Necessity Statement*: Anticipating discharge tomorrow Time Spent in Patient Care: 16 - 35 minutes Coding Level of Care Code Acute [facility] Psychiatrist for [facility] Diagnoses Pyelonephritis N12
[2021-05-05] MEDS: aztreonam 2,000 MG in sodium chloride 0.9% (plus) 100 ML 200 MG IV (15:26)
[2021-05-06] MEDS: aztreonam 2,000 MG in sodium chloride 0.9% (plus) 100 ML 200 MG IV (02:17)
[2021-05-06] MEDS: guaiFENesin-dextromethorphan UDC 10 mL 5 ML PO ×2 (02:28→08:10)
[2021-05-06 03:32] VITALS: BP 110/75; PULSE 71; RESP 14; TEMP 36.7; O2SAT 93
[2021-05-06] MEDS: CELEcoxib 100 mg Capsule PO (05:27)
[2021-05-06] MEDS: benzonatate 100 mg Capsule PO (05:30)
[2021-05-06 06:11] LABS: Hematocrit 27.3 % (37.0-47.0); Hemoglobin 9.5 g/dL (11.5-15.3); Lymphocytes # 0.3 10^3/uL (0.8-4.8); Lymphocytes % 17.4 %; Mean Corpuscular HGB Conc 34.8 g/dL (30.0-36.0); Mean Corpuscular Hemoglobin 41.5 pg (28.0-34.0); Mean Corpuscular Volume 119.2 fl (81-99); Mean Platelet Volume 12.4 fL (7.4-10.4); Monocytes # 0.1 10^3/uL (0.2-0.9); Monocytes % 3.3 %; Neutrophils # 1.45 10^3/uL (1.8-7.7); Neutrophils % 78.8 %; Nucleated Red Blood Cells % 0 %; Platelet Count 70 10^3/cmm (130-400); Red Blood Count 2.29 10^6/uL (4.1-5.3); Red Cell Distribution Width 17.9 % (12.1-15.1); White Blood Count 1.8 10^3/uL (4.0-10.0)
[2021-05-06 06:44] LABS: Anion Gap 13.3 (5-19); Blood Urea Nitrogen 4 mg/dL (6-20); Calcium 8.6 mg/dL (8.5-10.5); Carbon Dioxide 20 mmol/L (22-29); Chloride 103 mmol/L (98-107); Glomerular Filtration Rate 132.8 mL/min (90-130); Glucose 146 mg/dL (65-115); Osmolality Calculated 274 mOsm/kg (285-295); Potassium 4.3 mmol/L (3.5-5.1); Sodium 132 mmol/L (136-145)
[2021-05-06 07:50] VITALS: BP 117/79; PULSE 66; RESP 18; TEMP 36.7; O2SAT 98
[2021-05-06] MEDS: ondansetron 2 mg/ML SDV 2 mL 4 MG IVP (08:06)
[2021-05-06] MEDS: morphine 4 mg/mL SDV 1 mL 2 MG IVP (08:06)
[2021-05-06] MEDS: cetirizine 10 mg Tablet PO (08:09)
[2021-05-06] MEDS: apixaban 5 mg Tablet PO (08:09)
[2021-05-06] MEDS: pantoprazole DR 40 mg Tablet PO (08:09)
[2021-05-06 11:34] VITALS: BP 104/69; PULSE 76; RESP 17; TEMP 36.8; O2SAT 99
--- NOTE | 2021-05-06 11:57 | PM.DCS ---
Discharge Providers Date of Admission: 05/03/21 20:36 Date of Discharge: May 06, 2021 Attending Provider at Admission: Karyna Benito MD Attending Provider at Discharge: Masha Mahajan MD Primary Care Provider: Arpan Wallace MD Diagnoses at Discharge Discharge Diagnosis (1) Pyelonephritis: Status: Acute Reason for Visit Reason for Visit: N/V X 2 DAYS, UTI Hospital Course Hospital Course 45-year-old female who has history of recurrent UTI previous urine culture positive for Proteus and E. coli, she also carries history of DVT bilateral, embolism diastolic congestive heart failure alcohol abuse presented to the hospital with chief complaint of nausea, vomiting and dysuria. Her symptoms started 3 days before her presentation to the ER. She also experienced fever 101.6 Fahrenheit at home associate with tachycardia. She was diagnosed with with pyelonephritis. She was given IV antibiotics. She did spike low-grade temperature during her hospitalization, urine culture grew E. coli sensitive to Levaquin. She has multiple drug allergies, I will discharge her home on 7 days of Levaquin. She did complain of facial swelling and skin rash however there was no objective evidence of these findings, I did opt for steroids because of her mild wheezing, she does smoke and carries history of COPD. Physical Exam Narrative: EXAM NARRATIVE: female, appears more than stated age Looks clinically euvolemic Mild edema noted below her eyes otherwise no signs of anaphylaxis or skin rash S1, S2 sinus rhythm Bilateral breath sounds wheezing improved Abdomen soft no signs of peritonitis Does have CVA tenderness legsno edema No neurological deficit Saturating well on room air Discharge Data Data Completed and Pending: Completed Studies During Hospitalization Category Date Time Status CT abdomen pelvis w con* [id number] Urge nt Cat Scan 05/03/21 18:21 Completed XR chest 1V noam ble [id number] Urgent Exams 05/03/21 17:36 Completed Pending at discharge Category Date Time Status Blood Culture Sta t Lab 05/03/21 17:46 Results Labs from last 24 hours 05/06/21 05/06/21 05:34 05:34 WBC 1.8 L RBC 2.29 L Hgb 9.5 L Hct 27.3 L MCV 119.2 H MCH 41.5 H MCHC 34.8 RDW 17.9 H Plt Count 70 L D MPV 12.4 H Neut % (Auto) 78.8 Lymph % (Auto) 17.4 [place] % (Auto) 3.3 Eos % (Auto) 0.0 Baso % (Auto) 0.0 Neut # (Auto) 1.45 L Lymph # (Auto) 0.3 L [place] # (Auto) 0.1 L Eos # (Auto) 0.0 Baso # (Auto) 0.0 Nucleated RBC % (a uto) 0 Nucleated RBCs # 0.0 Sodium 132 L Potassium 4.3 Chloride 103 Carbon Dioxide 20 L Anion Gap 13.3 BUN 4 L Creatinine 0.5 GFR Calculation 132.8 H Glucose 146 H Calculated Osmolal ity 274 L Calcium 8.6 Vitals: Last Vital Signs Temp 98.2 F 05/06/21 11:34 Pulse 76 05/06/21 11:34 Resp 17 05/06/21 11:34 BP 104/69 05/06/21 11:34 Pulse Ox 99 05/06/21 11:34 Discharge Plan Discharge Patient Disposition: Home Condition: Stable Prescriptions: New levofloxacin 750 mg tablet 750 mg PO DAILY 7 Days Qty: 7 RF: 0 Continued ondansetron HCl [Zofran] 4 mg tablet 4 mg PO Q8H PRN (Reason: nausea and vomiting) RF: 0 celecoxib 100 mg capsule 100 mg PO BID PRN (Reason: pain) Qty: 60 RF: 0 cetirizine [Zyrtec] 10 mg Tablet 20 mg PO BID RF: 0 multivitamin with folic acid [Thera] 400 mcg Tablet 1 tab PO DAILY Qty: 30 RF: 0 Eliquis 5 mg tablet 5 mg PO BID Qty: 90 RF: 3 acetaminophen 500 mg Tablet 500 - 1,000 mg PO Q4H PRN (Reason: Pain) RF: 0 phenazopyridine 95 mg Tablet 95 mg PO TID PRN (Reason: Spasms) RF: 0 Tessalon Perles 100 mg Capsule 100 mg PO BID PRN (Reason: Cough) RF: 0 Nexium 24HR 20 mg Capsule,Delayed Release(Dr/Ec) 20 mg PO DAILY RF: 0 Cold & Head Congestion Severe 2 tab PO TID PRN (Reason: Congestion) RF: 0 Discharge Orders: Discharge Order (Routine); Ordered 05/06/21 Ordered By: Masha Mahajan Discharge Diet: Cardiac Discharge Activity: Increase activity as tolerated Patient Instructions: Levofloxacin (By mouth) (Levaquin, Levaquin Leva-derrick), Urinary Tract Infection in Women (DC), Opioid Safety Discharge Attestations Time Spent in Discharge Care*: less than 30 min Status at Discharge: Cognitive status at discharge: cognitively intact, Behavioral status at discharge: cooperative, Quality Metrics Clinical Quality Measures During this hospital stay, did patient experience: None Coding Level of Care Code Acute [facility] FW DC note Diagnoses Pyelonephritis N12
[2021-05-06 13:31] VITALS: RESP 18
[2021-05-06] MEDS: morphine IR 15 mg Tablet PO (13:31)
[2021-05-06 16:28] VITALS: BP 104/69; PULSE 76; RESP 18; TEMP 36.8; O2SAT 99
--- NOTE | 2021-05-06 16:34 | PC.NURSE ---
patient verbalized understanding of discharge instructions, home medications, and follow up appointments.
--- NOTE | 2021-05-07 14:44 | PC.RESP ---
SMOKING CESSATION AND PULMONARY REHAB INFORMATION SENT TO PATIENT.
== END 2021-05-06 16:30 | disposition home or self-care (01) | DRG 690 ==
LOC: ER 20:56 → MEDSURG 05-04 09:27
PROVIDERS: Admitting Provider Student in an Organized Health Care Education/Training Program; Emergency Provider Emergency Medicine; PCP Hospitalist; Visit Provider Internal Medicine
DX: N10 Acute pyelonephritis (principal); I50.30 Unspecified diastolic (congestive) heart failure; N39.0 Urinary tract infection, site not specified; I11.0 Hypertensive heart disease with heart failure; E78.5 Hyperlipidemia, unspecified; Z86.711 Personal history of pulmonary embolism; Z86.718 Personal history of other venous thrombosis and embolism; Z87.440 Personal history of urinary (tract) infections; M79.7 Fibromyalgia; K21.9 Gastro-esophageal reflux disease without esophagitis; E03.9 Hypothyroidism, unspecified; F17.210 Nicotine dependence, cigarettes, uncomplicated; M48.02 Spinal stenosis, cervical region; F10.10 Alcohol abuse, uncomplicated; D51.9 Vitamin B12 deficiency anemia, unspecified; R19.7 Diarrhea, unspecified; B96.4 Proteus (mirabilis) (morganii) as the cause of diseases classified elsewhere; B96.20 Unspecified Escherichia coli [E. coli] as the cause of diseases classified elsewhere; Z79.01 Long term (current) use of anticoagulants
CPT/HCPCS: 36415; 71045; 74177; 80048; 80053; 80306; 81001; 81025; 83605; 84145; 84443; 85025; 87040; 87077; 87086; 87186; 87426; 87493; 93005; 96365; 96375; 99285; J0692; J0696; J1885; J2270; J2405; J2765; J2920; J3010; J3490; J7030; Q9967

== ENCOUNTER 2021-05-09 14:51 | Emergency (ER) | payer MEDICAID, SELFPAY ==
[2021-05-09 14:56] VITALS: BP 111/76; PULSE 88; RESP 18; TEMP 36.2; O2SAT 98; BMI 20.7
--- NOTE | 2021-05-09 15:08 | XRR_ITS ---
PROCEDURE INFORMATION: Exam: XR Chest Exam date and time: 05/09/2021 3:08 PM Age: 45 years old Clinical indication: Shortness of breath; Additional info: SOB TECHNIQUE: Imaging protocol: XR of the chest. Views: 1 view. COMPARISON: CR (CHEST, ) 05/03/2021 5:44 PM FINDINGS: Lungs: Subtle nonspecific bilateral airspace disease left perihilar region and right upper lobe. This may represent pulmonary edema versus early bilateral pneumonia. Pleural spaces: No pleural effusion. No pneumothorax. Heart/Mediastinum: No cardiomegaly. Bones/joints: Unremarkable. XR/XR chest 1V portable [id number] IMPRESSION: 1. Subtle nonspecific bilateral airspace disease, left perihilar area and right upper lobe. This may represent pulmonary edema versus early bilateral pneumonia. 2. This findings is new when compared to 05/03/2021. Radiation Dose CTDIVOL = (mGy): DLP = (mGy-cm)
--- NOTE | 2021-05-09 15:09 | ECG_ITS ---
[facility] Test Date: 2021-05-09 Pat Name: Denisa Orourke Department: Room: Gender: Female [employer] Database Developer: : 1975 Requested By: Aj Diggs Order Number: [id number] Valerie MD: Troy Garcia M.D. Measurements Intervals [employer] Rate: 79 P: 32 KS: 168 QRS: 9 QRSD: 86 T: 46 QT: 386 QTc: 443 Interpretive Statements SINUS RHYTHM POSSIBLE RIGHT VENTRICULAR CONDUCTION DELAY [RSR (QR) IN V1/V2] SEPTAL MYOCARDIAL INFARCTION , OF INDETERMINATE AGE [40+ ms Q WAVE IN V1/V2] Compared to ECG 05/03/2021 17:58:44 Sinus tachycardia no longer present Myocardial infarct finding still present Electronically Signed On 05-09-2021 23:17:24 CDT by Troy Garcia M.D. [id number]
--- NOTE | 2021-05-09 15:46 | ED_ITS ---
HPI - General Adult General: Chief complaint: General Medical Stated complaint: COUGH, SOB, BACK PAIN:D/C FOR SAME Time Seen by Provider: 05/09/21 15:08 Source: patient Mode of arrival: ambulatory Limitations: no limitations History of Present Illness: HPI narrative: 45-year-old female has a history of alcoholism was admitted recently for pyelonephritis. She was discharged and states she has been on Levaquin but states she has been having body aches chills and feeling like her body is on fire. She is afebrile here. States she has had cough and slight shortness of breath. Denies any vomiting diarrhea denies any worsening improving factors. Associated symptoms: Reports dyspnea; Deny chest pain, headache(s), nausea, rash or vomiting Review of Systems Const: Reports: fever(s), chills and body aches Eyes: Denies: blurry vision or eye discomfort ENMT: Denies: throat pain or dental pain Card: Denies: chest pain Resp: Reports: dyspnea GI: Denies: abdominal pain, nausea, vomiting or diarrhea : Denies: dysuria Musc: Denies: neck pain or back pain Skin/Breast: Denies: rash Neuro: Denies: headache(s) Psych: Denies: depression Maxime/Lymph: Denies: easy bruising All/Imm: Denies: urticaria PFSH ED PFSH: Medical History Back pain Dyshidrotic hand dermatitis Fibromyalgia GERD (gastroesophageal reflux disease) Gram-negative bacteremia H/O History of hypothyroidism HTN (hypertension) Macrocytosis Migraine without aura, not intractable, without status migrainosus Nasal vestibulitis Nicotine abuse PSVT (paroxysmal supraventricular tachycardia) Pulmonary embolism Pulmonary infarct Pyelonephritis of right kidney Recurrent UTI Renal infarct Spinal stenosis, cervical region Transaminitis Vitamin B12 deficiency anemia Vitamin D deficiency Surgical History H/O colonoscopy 2018 - normal History of hysterectomy with bilateral oophorectomy History of radiofrequency ablation (RFA) procedure for cardiac arrhythmia Hx of appendectomy S/P carpal tunnel release S/P tubal ligation Family History Mother Atrial fibrillation Hypertension Social History Alcohol intake: current Alcohol intake frequency: 0-2 Drinks per Day Lives independently: Yes Household members: spouse and family Marital status: service: No Current occupational status: unemployed History of recent travel: No Current gender identity: Female Female Reproductive History: Date of last menstrual period: 07/31/10 Physical Exam Const: COMMON NORMALS: no acute distress, patient oriented x3 and healthy appearing HENMT: COMMON NORMALS: normocephalic and atraumatic HEAD & SCALP: normocephalic and atraumatic Eye: COMMON NORMALS: Equal, round and reactive pupils present and EOMs intact bilaterally PUPIL: Yes Equal, round and reactive pupils present Neck/C-Spine: COMMON NORMALS: full ROM and supple Chest: COMMONS NORMALS: normal inspection of the chest and normal palpation of entire chest wall Resp: COMMON NORMALS: normal respiratory effort, No retractions, No use of accessory muscles and clear to auscultation bilaterally AUSCULTATION: clear to auscultation bilaterally Cardio: COMMON NORMALS: regular rate, regular rhythm and No murmurs present (Cardio) RATE: regular rate RHYTHM: regular rhythm GI: COMMON NORMALS: Normal to inspection, nondistended, normoactive bowel sounds present, Soft to palpation, non-tender and no masses PALPATION: Yes Soft to palpation Extremity: COMMON NORMALS: normal to inspection and full ROM Neuro: COMMON NORMALS: patient oriented x3, moves all extremities and no focal motor deficits Psych: COMMON NORMALS: mental status grossly normal, Normal thought process present and cooperative THOUGHT PROCESS: Normal thought process present Skin: COMMON NORMALS: no rashes or lesions noted and no wounds GENERAL SKIN EXAM: no rashes or lesions noted Course Vital Signs: Vital signs: Vital Signs Temperature 97.1 F L 05/09/21 14:56 Pulse Rate 72 05/09/21 18:05 Respiratory Rate 18 05/09/21 14:56 Blood Pressure 136/87 05/09/21 18:05 Pulse Oximetry 100 05/09/21 18:05 MDM - General Adult MDM Narrative: Medical decision making narrative: Patient presents here with multiple complaints including some dyspnea. X-ray shows slightly pulmonary edema she has no symptoms here of pneumonia. She is currently on Levaquin is to continue her Levaquin. Patient is refusing Lasix here will prescribe her Lasix for home. She is to follow-up PCP and return if worsening. Lab Data: Labs: Lab Results 05/09/21 05/09/21 05/09/21 15:55 15:55 15:55 WBC 3.6 10^3/uL L 10^ 3/uL (4.0-10.0) RBC 2.45 10^6/uL L 10 ^6/uL (4.1-5.3) Hgb 9.9 g/dL L g/dL (11.5-15.3) Hct 29.5 % L % (37.0-47.0) MCV 120.4 fl H fl (81-99) MCH 40.4 pg H pg (28.0-34.0) MCHC 33.6 g/dL g/dL (30.0-36.0) RDW 19.5 % H % (12.1-15.1) Plt Count 166 10^3/cmm 10^3 /cmm (130-400) MPV 10.2 fL fL (7.4-10.4) Neut % (Auto) 40.2 % % Lymph % (Auto) 41.9 % % [place] % (Auto) 13.1 % % Eos % (Auto) 1.7 % % Baso % (Auto) 0.3 % % Neut # (Auto) 1.44 10^3/uL L 10 ^3/uL (1.8-7.7) Lymph # (Auto) 1.5 10^3/uL 10^3/ uL (0.8-4.8) [place] # (Auto) 0.5 10^3/uL 10^3/ uL (0.2-0.9) Eos # (Auto) 0.1 10^3/uL 10^3/ uL (0.0-0.8) Baso # (Auto) 0.0 10^3/uL 10^3/ uL (0.0-0.1) Nucleated RBC % (a uto) 0.6 % % Nucleated RBCs # 0.0 /100WBC /100W BC Sodium 140 mmol/L mmol/L (136-145) Potassium 3.5 mmol/L mmol/L (3.5-5.1) Chloride 106 mmol/L mmol/L (98-107) Carbon Dioxide 24 mmol/L mmol/L (22-29) Anion Gap 13.5 (5-19) BUN 4 mg/dL L mg/dL (6-20) Creatinine 0.5 mg/dL mg/dL (0.5-0.9) GFR Calculation 132.8 mL/min H mL /min (90-130) Glucose 75 mg/dL mg/dL (65-115) Calculated Osmolal ity 286 mOsm/kg mOsm/ kg (285-295) Lactate 1.8 mmol/L mmol/L (0.5-2.2) Calcium 8.2 mg/dL L mg/dL (8.5-10.5) Total Bilirubin 0.3 mg/dL mg/dL (0.15-1.2) AST 65 U/L H U/L (0-32) ALT 59 U/L H U/L (0-33) Alkaline Phosphata se 111 IU/L H IU/L (35-105) NT-Pro-B Natriuret Pep 274 pg/mL H pg/mL (0-125) Total Protein 5.7 g/dL L g/dL (6.6-8.7) Albumin 3.3 g/dL L g/dL (3.5-5.2) Globulin 2.4 g/dL g/dL (1.3-4.6) Urine Color Urine Appearance Urine pH Ur Specific Gravit y Urine Protein Urine Glucose (UA) Urine Ketones Urine Blood Urine Nitrate Urine Bilirubin Urine Urobilinogen Ur Leukocyte Rachel ase Ethyl Alcohol < 10 mg/dL mg/dL (0-10) SARS-CoV-2 Ag (Rap id) 05/09/21 05/09/21 16:02 16:50 WBC RBC Hgb Hct MCV MCH MCHC RDW Plt Count MPV Neut % (Auto) Lymph % (Auto) [place] % (Auto) Eos % (Auto) Baso % (Auto) Neut # (Auto) Lymph # (Auto) [place] # (Auto) Eos # (Auto) Baso # (Auto) Nucleated RBC % (a uto) Nucleated RBCs # Sodium Potassium Chloride Carbon Dioxide Anion Gap BUN Creatinine GFR Calculation Glucose Calculated Osmolal ity Lactate Calcium Total Bilirubin AST ALT Alkaline Phosphata se NT-Pro-B Natriuret Pep Total Protein Albumin Globulin Urine Color Yellow (Yellow) Urine Appearance Clear (CLEAR) Urine pH 5 (5-7) Ur Specific Gravit y 1.010 (1.005-1.030) Urine Protein Neg (Negative) Urine Glucose (UA) Norm (Normal) Urine Ketones Negative (Negative) Urine Blood Neg (Negative) Urine Nitrate Negative (Negative) Urine Bilirubin Neg (Negative) Urine Urobilinogen Norm mg/dL mg/dL (Negative) Ur Leukocyte Rachel ase Negative (Negative) Ethyl Alcohol SARS-CoV-2 Ag (Rap id) Negative (Negative) Imaging Data^: CXR: Attestation: I personally reviewed and interpreted this imaging study as follows: Radiologist's impression: [employer] [place] [address] XRay Report Signed Patient: Denisa Orourke Unit #: [id number] : 1975 Age/Sex: 45 / F ADM Date: 05/09/21 Loc: ER Room/Bed: Attending Dr: Ordering Provider/Ordering MD: Aj Diggs MD Date of Service: 05/09/21 Procedure(s): XR chest 1V portable [id number] Accession Number(s): [id number] Report Number: [id number] PROCEDURE INFORMATION: Exam: XR Chest Exam date and time: 05/09/2021 3:08 PM Age: 45 years old Clinical indication: Shortness of breath; Additional info: SOB TECHNIQUE: Imaging protocol: XR of the chest. Views: 1 view. COMPARISON: CR (CHEST, ) 05/03/2021 5:44 PM FINDINGS: Lungs: Subtle nonspecific bilateral airspace disease left perihilar region and right upper lobe. This may represent pulmonary edema versus early bilateral pneumonia. Pleural spaces: No pleural effusion. No pneumothorax. Heart/Mediastinum: No cardiomegaly. Bones/joints: Unremarkable. XR/XR chest 1V portable [id number] IMPRESSION: 1. Subtle nonspecific bilateral airspace disease, left perihilar area and right upper lobe. This may represent pulmonary edema versus early bilateral pneumonia. 2. This findings is new when compared to 05/03/2021. Radiation Dose CTDIVOL = (mGy): DLP = (mGy-cm) Dictated By: Indra Sweeney MD Signed By: Indra Sweeney MD Signed Date/Time: 05/09/21 1759 DD/ 1508 EKG Data^: EKG 1: Attestation: I personally reviewed and interpreted this EKG as follows: EKG interpretation date: 05/09/21 EKG interpretation time: 15:29 Interpretation: nsr hr [address] or t wave abnormaliies qrs 86 [id number] Computer generated interpretation: Chest X-Ray 05/09/21 15:08 IMPRESSION: 1. Subtle nonspecific bilateral airspace disease, left perihilar area and right upper lobe. This may represent pulmonary edema versus early bilateral pneumonia. 2. This findings is new when compared to 05/03/2021. Radiation Dose CTDIVOL = (mGy): DLP = (mGy-cm) Discharge Plan Discharge Patient Disposition: Home Clinical Impression: Dyspnea Qualifiers: Dyspnea type: unspecified Qualified Code(s): R06.00 - Dyspnea, unspecified Condition: Stable Prescriptions: New Lasix 20 mg tablet 20 mg PO QAM Qty: 30 RF: 0 No Action ondansetron HCl [Zofran] 4 mg tablet 4 mg PO Q8H PRN (Reason: nausea and vomiting) RF: 0 celecoxib 100 mg capsule 100 mg PO BID PRN (Reason: pain) Qty: 60 RF: 0 cetirizine [Zyrtec] 10 mg Tablet 20 mg PO BID RF: 0 multivitamin with folic acid [Thera] 400 mcg Tablet 1 tab PO DAILY Qty: 30 RF: 0 Eliquis 5 mg tablet 5 mg PO BID Qty: 90 RF: 3 acetaminophen 500 mg Tablet 500 - 1,000 mg PO Q4H PRN (Reason: Pain) RF: 0 phenazopyridine 95 mg Tablet 95 mg PO TID PRN (Reason: Spasms) RF: 0 Tessalon Perles 100 mg Capsule 100 mg PO BID PRN (Reason: Cough) RF: 0 Nexium 24HR 20 mg Capsule,Delayed Release(Dr/Ec) 20 mg PO DAILY RF: 0 Cold & Head Congestion Severe 2 tab PO TID PRN (Reason: Congestion) RF: 0 levofloxacin 750 mg tablet 750 mg PO DAILY 7 Days Qty: 7 RF: 0 Discharge Orders: Discharge ED (Routine); Ordered 05/09/21 Ordered By: Aj Diggs Referrals: Shaq Wallace MD [Primary Care Provider] - 1-3 days Discharge Diet: Advance as tolerated Discharge Activity: Resume usual activity Patient Instructions: Dyspnea (ED) Coding Level of Care Code ED Dairy Frozen Manager for Chg Fwd 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
[2021-05-09 16:09] LABS: Basophils % 0.3 %; Eosinophils # 0.1 10^3/uL (0.0-0.8); Eosinophils % 1.7 %; Hematocrit 29.5 % (37.0-47.0); Hemoglobin 9.9 g/dL (11.5-15.3); Lymphocytes # 1.5 10^3/uL (0.8-4.8); Lymphocytes % 41.9 %; Mean Corpuscular HGB Conc 33.6 g/dL (30.0-36.0); Mean Corpuscular Hemoglobin 40.4 pg (28.0-34.0); Mean Corpuscular Volume 120.4 fl (81-99); Mean Platelet Volume 10.2 fL (7.4-10.4); Monocytes # 0.5 10^3/uL (0.2-0.9); Monocytes % 13.1 %; Neutrophils # 1.44 10^3/uL (1.8-7.7); Neutrophils % 40.2 %; Nucleated Red Blood Cells % 0.6 %; Platelet Count 166 10^3/cmm (130-400); Red Blood Count 2.45 10^6/uL (4.1-5.3); Red Cell Distribution Width 19.5 % (12.1-15.1); White Blood Count 3.6 10^3/uL (4.0-10.0)
[2021-05-09 16:30] LABS: Slide Review Slide Review Perform
[2021-05-09 16:42] VITALS: BP 131/81; PULSE 78; O2SAT 99
[2021-05-09 16:43] LABS: Lactate (Lactic Acid level) 1.8 mmol/L (0.5-2.2)
[2021-05-09 16:54] LABS: Add Urine Microscopic? NO; Charge for UA Resulting for Rev
[2021-05-09 16:54] LABS: Alanine Aminotransferase 59 U/L (0-33); Albumin Level 3.3 g/dL (3.5-5.2); Alkaline Phosphatase 111 IU/L (35-105); Anion Gap 13.5 (5-19); Aspartate Amino Transferase 65 U/L (0-32); Blood Urea Nitrogen 4 mg/dL (6-20); Calcium 8.2 mg/dL (8.5-10.5); Carbon Dioxide 24 mmol/L (22-29); Chloride 106 mmol/L (98-107); Globulin 2.4 g/dL (1.3-4.6); Glomerular Filtration Rate 132.8 mL/min (90-130); Glucose 75 mg/dL (65-115); NT Pro B Type Natriuretic Pept 274 pg/mL (0-125); Osmolality Calculated 286 mOsm/kg (285-295); Potassium 3.5 mmol/L (3.5-5.1); Sodium 140 mmol/L (136-145); Total Bilirubin 0.3 mg/dL (0.15-1.2); Total Protein 5.7 g/dL (6.6-8.7)
[2021-05-09 16:55] LABS: Alcohol Level < 10 mg/dL (0-10)
[2021-05-09 16:57] LABS: Bilirubin Urine Neg (Negative); Blood Urine Neg (Negative); Glucose Urine UA Norm (Normal); Ketones Urine Negative (Negative); Leukocyte Esterase Urine Negative (Negative); Nitrate Urine Negative (Negative); Protein Urine Neg (Negative); Urine Appearance Clear (CLEAR); Urine Color Yellow (Yellow); Urobilinogen Urine Norm (Negative); pH Urine 5 (5-7)
[2021-05-09 17:18] LABS: SARS Covid-2 Antigen Negative (Negative)
[2021-05-09 18:05] VITALS: BP 136/87; PULSE 72; O2SAT 100
[2021-05-09 18:37] VITALS: BP 136/87; PULSE 84; O2SAT 100
== END 2021-05-09 18:39 | disposition home or self-care (01) ==
PROVIDERS: Emergency Provider Emergency Medicine; PCP Family Medicine Adult Medicine
DX: R06.00 Dyspnea, unspecified (principal); Z79.01 Long term (current) use of anticoagulants; I10 Essential (primary) hypertension; Z86.711 Personal history of pulmonary embolism; Z20.822 Contact with and (suspected) exposure to COVID-19
CPT/HCPCS: 71045; 80053; 80307; 81003; 83605; 83880; 85025; 87426; 93005; 99284

== ENCOUNTER 2021-05-11 20:58 | Emergency (ER) | payer MEDICAID, SELFPAY ==
[2021-05-11 21:23] VITALS: BP 102/70; PULSE 92; RESP 16; TEMP 36.8; O2SAT 93
--- NOTE | 2021-05-11 21:42 | ED_ITS ---
HPI - Fall General: Chief Complaint: Fall Stated Complaint: fall Time Seen by Provider: 05/11/21 21:30 History of Present Illness: HPI Narrative: Patient is a 45-year-old female comes to the ED after having a fall. Patient says she was out in her garage and lost her balance and fell backwards hitting her tailbone and lower back on concrete floor. Denies any head trauma or loss of consciousness. She reports having pain in her lower back and tailbone also having some bruising. Patient also reports having some very mild right knee pain due to fall as well. Denies any numbness tingling to extremities, weakness to lower extremities, bladder or bowel incontinence or any pelvic anesthesia. Associated symptoms-after fall: Denies abdominal pain, chest pain, headache(s), hematuria or neck pain Review of Systems Const: Denies: fever(s), chills or fatigue Eyes: Denies: change in vision or eye discomfort ENMT: Denies: throat pain, odynophagia, nasal discharge or nasal congestion Card: Denies: chest pain, palpitations, edema, swelling of feet/ankles, dyspnea on exertion or orthopnea Resp: Denies: dyspnea, productive cough or non-productive cough GI: Denies: abdominal pain, nausea, vomiting, diarrhea, constipation or hematochezia : Denies: flank pain, dysuria or hematuria Musc: Reports: back pain (Tailbone and lumbar back pain) and extremity pain (right knee pain); Denies: neck pain or extremity swelling Skin/Breast: Denies: rash or new lesions Neuro: Denies: headache(s), numbness in extremities or weakness in extremities PFS ED PFSH: Medical History Back pain Dyshidrotic hand dermatitis Fibromyalgia Folic acid deficiency GERD (gastroesophageal reflux disease) Gram-negative bacteremia H/O History of hypothyroidism HTN (hypertension) Macrocytosis Migraine without aura, not intractable, without status migrainosus Nasal vestibulitis Nicotine abuse PSVT (paroxysmal supraventricular tachycardia) Pulmonary embolism Pulmonary infarct Pyelonephritis of right kidney Recurrent UTI Renal infarct Spinal stenosis, cervical region Transaminitis Vitamin B12 deficiency anemia Vitamin D deficiency Surgical History H/O colonoscopy 2018 - normal History of hysterectomy with bilateral oophorectomy History of radiofrequency ablation (RFA) procedure for cardiac arrhythmia Hx of appendectomy S/P carpal tunnel release S/P tubal ligation Family History Mother Atrial fibrillation Hypertension Social History Alcohol intake: current Alcohol intake frequency: 0-2 Drinks per Day Lives independently: Yes Household members: spouse and family Marital status: service: No Current occupational status: unemployed History of recent travel: No Current gender identity: Female Female Reproductive History: Date of last menstrual period: 07/31/10 Physical Exam Const: COMMON NORMALS: no acute distress, patient oriented x3 and alert GENERAL APPEARANCE: cooperative and comfortable HENMT: COMMON NORMALS: normocephalic HEAD & SCALP: normocephalic MOUTH: Normal oral and palatal mucosa present THROAT: posterior oropharynx normal and uvula midline Neck/C-Spine: COMMON NORMALS: supple GENERAL: Yes normal visual inspection Resp: COMMON NORMALS: normal respiratory effort, No retractions, No use of accessory muscles and clear to auscultation bilaterally AUSCULTATION: clear to auscultation bilaterally Cardio: COMMON NORMALS: regular rate, regular rhythm, S1 normal heart sound present, S2 normal heart sound present, No gallops present (Cardio), No clicks present (Cardio), No murmurs present (Cardio) and Peripheral pulses 2+ throughout RATE: regular rate RHYTHM: regular rhythm HEART SOUNDS: S1 normal heart sound present and S2 normal heart sound present PERIPHERAL PULSES: Peripheral pulses 2+ throughout GI: COMMON NORMALS: Normal to inspection, nondistended, normoactive bowel sounds present, Soft to palpation, non-tender and no masses PALPATION: Yes Soft to palpation : COMMON NORMALS: Yes no CVA tenderness BLADDER/KIDNEY EXAM: Yes no CVA tenderness Back/Pelvis: COMMON NORMALS: no CVA tenderness LUMBAR SPINE/LOWER BACK: Yes pain with ROM, Yes lumbar spinal tenderness Lumbar spinal tenderness location: L1, L4 and L5 and Yes paraspinal muscle tenderness Lumbar paraspinal muscle tenderness: bilateral Bilateral lumbar paraspinal muscle tenderness: L1, L4 and L5 COCCYX: Coccyx tenderness present on direct palpation OTHER: Patient has some ecchymosis noted in the lower lumbar spine and tailbone region. Extremity: COMMON NORMALS: normal to inspection Neuro: COMMON NORMALS: patient oriented x3 and moves all extremities SENSORIUM/ORIENTATION: Yes alert Skin: GENERAL SKIN EXAM: dry skin Course Vital Signs: Vital signs: Vital Signs Temperature 98.3 F 05/12/21 01:57 Pulse Rate 92 05/11/21 21:23 Respiratory Rate 16 05/12/21 01:57 Blood Pressure 102/70 05/11/21 21:23 Pulse Oximetry 93 05/12/21 01:57 MDM - Fall MDM Narrative: Medical decision making narrative: Patient is a 45-year-old female comes to the ED with lower back tailbone pain along with right knee pain after fall. Patient denies any head trauma or loss of consciousness. Denies any neurological symptoms or any cauda equina symptoms. Exam findings show some upper lumbar spinal tenderness along with some ecchymosis noted on lower back. Vitals stable. X-ray of right knee showed no acute fractures or findings. X- ray of the lumbar spine noted T12 superior endplate compression fracture with no bony fragment protrusions. 25% loss of height anteriorly. XR sacrum and coccyx showed no acute fractures or findings. I placed an order with case management for patient be referred to Dr. Issa for follow-up of T12 compression fracture. Patient diagnosed with a compression fracture of thoracic vertebrae and contusion of lower back. She was sent home with a prescription for TLSO brace and told to contact [facility] in the morning to set up time to be fitted for a brace. Patient was told case management will be contacting them the next several days set up appoint with Dr. Issa. Return to ED precautions given. Patient understood and agreed with plan. Imaging Data^: Xray Ortho: Attestation: I personally reviewed and interpreted this imaging study as follows: Radiologist's impression: [facility] [address] [place] [address] XRay Report Signed Patient: Denisa Orourke Unit #: [id number] : 1975 Age/Sex: 45 / F ADM Date: 05/11/21 Loc: ER Room/Bed: Attending Dr: Ordering Provider/Ordering MD: Yoshi Pope Date of Service: 05/11/21 Procedure(s): XR lumbar spine 2-3V* 02979 Accession Number(s): [id number] Report Number: [id number] PROCEDURE INFORMATION: Exam: XR Lumbosacral Spine Exam date and time: 05/11/2021 9:48 PM Age: 45 years old Clinical indication: Low back pain; Additional info: Fall with back pain and bruising TECHNIQUE: Imaging protocol: XR of the lumbosacral spine. Views: 2 or 3 views. COMPARISON: CR XR sacrum coccyx min 2V [id number] 04/12/2021 11:03 AM FINDINGS: Bones/joints: T12 vertebral body superior endplate compression fracture with approximately 25% loss of height anteriorly, new compared to prior exam, negative for retropulsion of bony fragments, potentially acute. Mild productive degenerative endplate changes throughout the lumbar spine. Chronic grade 1 anterolisthesis of L5 relative to S1. Soft tissues: Unremarkable. XR/XR lumbar spine 2-3V* 43000 IMPRESSION: 1. T12 vertebral body superior endplate compression fracture with approximately 25% loss of height anteriorly, new compared to prior exam, negative for retropulsion of bony fragments, potentially acute. 2. Mild productive degenerative endplate changes throughout the lumbar spine. 3. Chronic grade 1 anterolisthesis of L5 relative to S1. Radiation Dose CTDIVOL = (mGy): DLP = (mGy-cm) Dictated By: Cole Red MD Signed By: Cole Red MD Signed Date/Time: 05/12/21 0049 DD/ [address] [address] XRay Report Signed Patient: Denisa Orourke Unit #: [id number] : 1975 Age/Sex: 45 / F ADM Date: 05/11/21 Loc: ER Room/Bed: Attending Dr: Ordering Provider/Ordering MD: Yoshi Pope Date of Service: 05/11/21 Procedure(s): XR sacrum coccyx min 2V 39266 Accession Number(s): [id number] Report Number: [id number] PROCEDURE INFORMATION: Exam: XR Sacrum and Coccyx, 2 or More Views Exam date and time: 05/11/2021 9:48 PM Age: 45 years old Clinical indication: Pain in coccyx area; Additional info: Fall with tailbone pain TECHNIQUE: Imaging protocol: XR of the sacrum and coccyx, 2 or more views. COMPARISON: CR XR sacrum coccyx min 2V 03709 04/12/2021 11:03 AM FINDINGS: Bones/joints: Normal. No acute fracture. Soft tissues: Normal. XR/XR sacrum coccyx min 2V 10757 IMPRESSION: Negative for fracture or dislocation. Radiation Dose CTDIVOL = (mGy): DLP = (mGy-cm) Dictated By: oCle Red MD Signed By: Cole Red MD Signed Date/Time: 05/12/2146 DD/ [address] [address] XRay Report Signed Patient: Denisa Orourke Unit #: [id number] : 1975 Age/Sex: 45 / F ADM Date: 05/11/21 Loc: ER Room/Bed: Attending Dr: Ordering Provider/Ordering MD: Yoshi Poep Date of Service: 05/11/21 Procedure(s): XR knee RT 3V* 00774 Accession Number(s): [id number] Report Number: [id number] PROCEDURE INFORMATION: Exam: XR Right Knee Exam date and time: 05/11/2021 9:48 PM Age: 45 years old Clinical indication: Pain; Knee; Right; Additional info: Fall with pain and bruising TECHNIQUE: Imaging protocol: XR Right knee. Views: 3 views. COMPARISON: No relevant prior studies available. FINDINGS: Bones/joints: Normal. Soft tissues: Normal. XR/XR knee RT 3V* [id number] IMPRESSION: Negative for fracture or dislocation. Radiation Dose CTDIVOL = (mGy): DLP = (mGy-cm) Dictated By: Cole Red MD Signed By: Cole Red MD Signed Date/Time: 05/12/2145 DD/ 47 Discharge Plan Discharge Patient Disposition: Home Clinical Impression: Compression fracture of thoracic vertebra Qualifiers: Encounter type: initial encounter Thoracic vertebra fracture level: T12 Qualified Code(s): S22.080A - Wedge compression fracture of T11-T12 vertebra, initial encounter for closed fracture Contusion of lower back Qualifiers: Encounter type: initial encounter Qualified Code(s): S30.0XXA - Contusion of lower back and pelvis, initial encounter Condition: Stable Prescriptions: New ketorolac 10 mg tablet 10 mg PO Q6H PRN (Reason: pain) 5 Days Qty: 25 RF: 0 No Action ondansetron HCl [Zofran] 4 mg tablet 4 mg PO Q8H PRN (Reason: nausea and vomiting) RF: 0 celecoxib 100 mg capsule 100 mg PO BID PRN (Reason: pain) Qty: 60 RF: 0 cetirizine [Zyrtec] 10 mg Tablet 20 mg PO BID RF: 0 multivitamin with folic acid [Thera] 400 mcg Tablet 1 tab PO DAILY Qty: 30 RF: 0 Eliquis 5 mg tablet 5 mg PO BID Qty: 90 RF: 3 acetaminophen 500 mg Tablet 500 - 1,000 mg PO Q4H PRN (Reason: Pain) RF: 0 phenazopyridine 95 mg Tablet 95 mg PO TID PRN (Reason: Spasms) RF: 0 Tessalon Perles 100 mg Capsule 100 mg PO BID PRN (Reason: Cough) RF: 0 Nexium 24HR 20 mg Capsule,Delayed Release(Dr/Ec) 20 mg PO DAILY RF: 0 Cold & Head Congestion Severe 2 tab PO TID PRN (Reason: Congestion) RF: 0 levofloxacin 750 mg tablet 750 mg PO DAILY 7 Days Qty: 7 RF: 0 Lasix 20 mg tablet 20 mg PO QAM Qty: 30 RF: 0 Discharge Orders: Discharge ED (Routine); Ordered 05/12/21 Ordered By: Yoshi Pope Referrals: Shaq Wallace MD [Primary Care Provider] - Discharge Diet: Regular Discharge Activity: Limit activity as instructed Patient Instructions: Thoracolumbar Fracture (ED), Clamshell Brace (ED) Activity Restrictions/Additional Instructions: Follow-up with medical provider as directed. Case management will be contacting you in the next several days set up an appointment with Dr. Issa the orthospine doctor. Wear your TLSO brace. Limit any activity or lifting and rest. take medications as prescribed. Return to the ER or your medical provider if condition worsens. Please read and understand discharge instructions. Thank you for choosing [facility] for your healthcare needs today. Please realize this is an emergency room and that we are providing you with a medical screening exam and this may not be complete and all inclusive of all the testing and or work up that you may need to determine your ailment or severity of your illness. It is very important that you follow up as instructed or that you return to the Emergency Department should you have concerns or if your condition changes or worsens in any way. Coding Level of Care Code ED [employer] Manager for Apryl Fwd 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
--- NOTE | 2021-05-11 21:48 | XRR_ITS ---
PROCEDURE INFORMATION: Exam: XR Sacrum and Coccyx, 2 or More Views Exam date and time: 05/11/2021 9:48 PM Age: 45 years old Clinical indication: Pain in coccyx area; Additional info: Fall with tailbone pain TECHNIQUE: Imaging protocol: XR of the sacrum and coccyx, 2 or more views. COMPARISON: CR XR sacrum coccyx min 2V 16101 04/12/2021 11:03 AM FINDINGS: Bones/joints: Normal. No acute fracture. Soft tissues: Normal. XR/XR sacrum coccyx min 2V 17440 IMPRESSION: Negative for fracture or dislocation. Radiation Dose CTDIVOL = (mGy): DLP = (mGy-cm)
--- NOTE | 2021-05-11 21:48 | XRR_ITS ---
PROCEDURE INFORMATION: Exam: XR Right Knee Exam date and time: 05/11/2021 9:48 PM Age: 45 years old Clinical indication: Pain; Knee; Right; Additional info: Fall with pain and bruising TECHNIQUE: Imaging protocol: XR Right knee. Views: 3 views. COMPARISON: No relevant prior studies available. FINDINGS: Bones/joints: Normal. Soft tissues: Normal. XR/XR knee RT 3V* 07638 IMPRESSION: Negative for fracture or dislocation. Radiation Dose CTDIVOL = (mGy): DLP = (mGy-cm)
--- NOTE | 2021-05-11 21:48 | XRR_ITS ---
PROCEDURE INFORMATION: Exam: XR Lumbosacral Spine Exam date and time: 05/11/2021 9:48 PM Age: 45 years old Clinical indication: Low back pain; Additional info: Fall with back pain and bruising TECHNIQUE: Imaging protocol: XR of the lumbosacral spine. Views: 2 or 3 views. COMPARISON: CR XR sacrum coccyx min 2V 61707 04/12/2021 11:03 AM FINDINGS: Bones/joints: T12 vertebral body superior endplate compression fracture with approximately 25% loss of height anteriorly, new compared to prior exam, negative for retropulsion of bony fragments, potentially acute. Mild productive degenerative endplate changes throughout the lumbar spine. Chronic grade 1 anterolisthesis of L5 relative to S1. Soft tissues: Unremarkable. XR/XR lumbar spine 2-3V* 05635 IMPRESSION: 1. T12 vertebral body superior endplate compression fracture with approximately 25% loss of height anteriorly, new compared to prior exam, negative for retropulsion of bony fragments, potentially acute. 2. Mild productive degenerative endplate changes throughout the lumbar spine. 3. Chronic grade 1 anterolisthesis of L5 relative to S1. Radiation Dose CTDIVOL = (mGy): DLP = (mGy-cm)
[2021-05-11] MEDS: ketorolac 60 mg/2 mL INJ IM (22:19)
[2021-05-12 01:57] VITALS: RESP 16; TEMP 36.8; O2SAT 93
--- NOTE | 2021-05-17 09:50 | DCPLANNER ---
import manager had message to schedule a follow up appointment for patient with ortho. import manager called the ortho clinic, spoke with Dinah, gave clinic patients information. import manager was told that patients information would be printed and reviewed. Clinic will call patient with appointment information.
--- NOTE | 2021-05-21 14:06 | DCPLANNER ---
Patient has a follow up appointment scheduled for Tuesday June 01, 2021 at 2:[address] Issa at [facility]. Clinic will call patient with appointment information.
== END 2021-05-12 01:59 | disposition home or self-care (01) ==
PROVIDERS: Emergency Provider Physician Assistant; PCP Family Medicine Adult Medicine
DX: S22.080A Wedge compression fracture of T11-T12 vertebra, initial encounter for closed fracture (principal); S30.0XXA Contusion of lower back and pelvis, initial encounter; Z79.01 Long term (current) use of anticoagulants; I10 Essential (primary) hypertension; Z86.711 Personal history of pulmonary embolism; W19.XXXA Unspecified fall, initial encounter
CPT/HCPCS: 72100; 72220; 73562; 96372; 99283; J1885

== ENCOUNTER 2021-05-16 16:30 | Emergency (ER) | payer MEDICAID, SELFPAY ==
[2021-05-16 18:04] VITALS: BP 154/105; PULSE 99; RESP 15; TEMP 36.7; O2SAT 100; BMI 21.2
--- NOTE | 2021-05-16 18:08 | ED_ITS ---
HPI - Back Pain/Injury General: Chief Complaint: Back Pain/Injury Stated Complaint: BACK PAIN/FRACTURE COMPLICATIONS Time Seen by Provider: 05/16/21 17:56 Source: patient Mode of arrival: ambulatory Limitations: no limitations History of Present Illness: HPI Narrative: 45-year-old female who had a fall her last week had a T12 compression fracture from that fall. States that today she had a coughing fit and had a spasm in her lower back. States it is caused her increased pain and she rates it a 7 out of 10. Denies any bowel or bladder incontinence denies any numbness or tingling down her legs. Denies any difficulty walking. States the pain now is worse with movement improved with rest. Associated symptoms: Deny abdominal pain, chills, dysuria, fever(s), nausea or vomiting Review of Systems Const: Denies: fever(s), chills, body aches or change in appetite Eyes: Denies: blurry vision or eye discomfort ENMT: Denies: throat pain or dental pain Card: Denies: chest pain Resp: Denies: dyspnea GI: Denies: abdominal pain, nausea, vomiting or diarrhea : Denies: dysuria Musc: Reports: back pain Skin/Breast: Denies: rash Neuro: Denies: headache(s) Psych: Denies: depression Maxime/Lymph: Denies: easy bruising All/Imm: Denies: urticaria PFSH ED PFSH: Medical History Back pain Dyshidrotic hand dermatitis Fibromyalgia Folic acid deficiency GERD (gastroesophageal reflux disease) Gram-negative bacteremia H/O History of hypothyroidism HTN (hypertension) Macrocytosis Migraine without aura, not intractable, without status migrainosus Nasal vestibulitis Nicotine abuse PSVT (paroxysmal supraventricular tachycardia) Pulmonary embolism Pulmonary infarct Pyelonephritis of right kidney Recurrent UTI Renal infarct Spinal stenosis, cervical region Transaminitis Vitamin B12 deficiency anemia Vitamin D deficiency Surgical History H/O colonoscopy 2018 - normal History of hysterectomy with bilateral oophorectomy History of radiofrequency ablation (RFA) procedure for cardiac arrhythmia Hx of appendectomy S/P carpal tunnel release S/P tubal ligation Family History Mother Atrial fibrillation Hypertension Social History Alcohol intake: current Alcohol intake frequency: 0-2 Drinks per Day Lives independently: Yes Household members: spouse and family Marital status: service: No Current occupational status: unemployed History of recent travel: No Current gender identity: Female Female Reproductive History: Date of last menstrual period: 07/31/10 Physical Exam Const: COMMON NORMALS: no acute distress, patient oriented x3 and healthy appearing HENMT: COMMON NORMALS: normocephalic and atraumatic HEAD & SCALP: normocephalic and atraumatic Eye: COMMON NORMALS: Equal, round and reactive pupils present and EOMs intact bilaterally PUPIL: Yes Equal, round and reactive pupils present Neck/C-Spine: COMMON NORMALS: full ROM and supple Chest: COMMONS NORMALS: normal inspection of the chest and normal palpation of entire chest wall Resp: COMMON NORMALS: normal respiratory effort, No retractions, No use of accessory muscles and clear to auscultation bilaterally AUSCULTATION: clear to auscultation bilaterally Cardio: COMMON NORMALS: regular rate, regular rhythm and No murmurs present (Cardio) RATE: regular rate RHYTHM: regular rhythm GI: COMMON NORMALS: Normal to inspection, nondistended, normoactive bowel sounds present, Soft to palpation, non-tender and no masses PALPATION: Yes Soft to palpation Back/Pelvis: OTHER: Paraspinal tenderness to the lower back no saddle anesthesia no weakness to lower extremities no decrease in sensation Extremity: COMMON NORMALS: normal to inspection and full ROM Neuro: COMMON NORMALS: patient oriented x3, moves all extremities and no focal motor deficits Psych: COMMON NORMALS: mental status grossly normal, Normal thought process present and cooperative THOUGHT PROCESS: Normal thought process present Skin: COMMON NORMALS: no rashes or lesions noted and no wounds GENERAL SKIN EXAM: no rashes or lesions noted Course Vital Signs: Vital signs: Vital Signs Temperature 98.0 F 05/16/21 18:04 Pulse Rate 99 05/16/21 18:04 Respiratory Rate 15 05/16/21 18:04 Blood Pressure 154/105 05/16/21 18:04 Pulse Oximetry 100 05/16/21 18:04 MDM - Back Pain/Injury MDM Narrative: Medical decision making narrative: Patient presents here with low back pain and spasm likely from coughing. Patient given Valium here will prescribe Naprosyn for home she is to follow-up with spine surgeon. She has no signs of cord compression stable for discharge. Discharge Plan Discharge Patient Disposition: Home Clinical Impression: Back pain Qualifiers: Back pain location: low back pain Chronicity: acute Back pain laterality: unspecified Sciatica presence: without sciatica Qualified Code(s): M54.50 - Low back pain, unspecified Fracture of thoracic spine Qualifiers: Encounter type: subsequent encounter Thoracic vertebra fracture level: T12 Fracture type: closed Fracture morphology: wedge compression Condition: Stable Prescriptions: New Naprosyn 500 mg tablet 500 mg PO BID PRN (Reason: pain) Qty: 20 RF: 0 No Action ondansetron HCl [Zofran] 4 mg tablet 4 mg PO Q8H PRN (Reason: nausea and vomiting) RF: 0 celecoxib 100 mg capsule 100 mg PO BID PRN (Reason: pain) Qty: 60 RF: 0 cetirizine [Zyrtec] 10 mg Tablet 20 mg PO BID RF: 0 multivitamin with folic acid [Thera] 400 mcg Tablet 1 tab PO DAILY Qty: 30 RF: 0 Eliquis 5 mg tablet 5 mg PO BID Qty: 90 RF: 3 acetaminophen 500 mg Tablet 500 - 1,000 mg PO Q4H PRN (Reason: Pain) RF: 0 phenazopyridine 95 mg Tablet 95 mg PO TID PRN (Reason: Spasms) RF: 0 Tessalon Perles 100 mg Capsule 100 mg PO BID PRN (Reason: Cough) RF: 0 Nexium 24HR 20 mg Capsule,Delayed Release(Dr/Ec) 20 mg PO DAILY RF: 0 Cold & Head Congestion Severe 2 tab PO TID PRN (Reason: Congestion) RF: 0 Lasix 20 mg tablet 20 mg PO QAM Qty: 30 RF: 0 ketorolac 10 mg tablet 10 mg PO Q6H PRN (Reason: pain) 5 Days Qty: 25 RF: 0 Discharge Orders: Discharge ED (Routine); Ordered 05/16/21 Ordered By: jA Diggs Referrals: Ibrahima Issa DO [Physician] - Shaq Wallace MD [Primary Care Provider] - Discharge Diet: Advance as tolerated Discharge Activity: Resume usual activity Patient Instructions: Vertebral Compression Fracture (ED) Coding Level of Care Code ED Procedure Tech for g Fwd
[2021-05-16 18:52] VITALS: BP 140/103; PULSE 70; RESP 18; TEMP 36.9; O2SAT 100
[2021-05-16] MEDS: diazePAM 5 mg Tablet PO (18:58)
[2021-05-16 19:24] VITALS: BP 138/96; PULSE 79; RESP 17; TEMP 36.6; O2SAT 100
== END 2021-05-16 19:27 | disposition home or self-care (01) ==
PROVIDERS: Emergency Provider Emergency Medicine; PCP Family Medicine Adult Medicine
DX: M54.50 Low back pain, unspecified (principal); S22.080A Wedge compression fracture of T11-T12 vertebra, initial encounter for closed fracture; Z79.01 Long term (current) use of anticoagulants; I10 Essential (primary) hypertension; Z86.711 Personal history of pulmonary embolism; W19.XXXA Unspecified fall, initial encounter
CPT/HCPCS: 99283

== ENCOUNTER → 2021-06-08 10:50 | Outpatient (BNVA) | payer BC, SELFPAY | PROVIDERS: PCP Family Medicine Adult Medicine; Visit Provider Orthopaedic Surgery | DX: S22.080D Wedge compression fracture of T11-T12 vertebra, subsequent encounter for fracture with routine healing (principal); X58.XXXD Exposure to other specified factors, subsequent encounter | CPT/HCPCS: 72080 ==

== ENCOUNTER 2021-06-30 20:32 | Emergency (ER) | payer BC, SELFPAY ==
[2021-06-30 20:45] VITALS: BP 120/81; PULSE 86; RESP 18; TEMP 36.6; O2SAT 100; BMI 22.1
--- NOTE | 2021-06-30 21:05 | W.ED.MEDCLER ---
HPI - Medical Clearance General Chief complaint: Medical Clearance Stated complaint: Son COVID + Time Seen by Provider: 06/30/21 21:05 Related Information Home Medications Medication Instructions Recorded Confirmed Cold & Head Congestion Severe 2 tab PO TID PRN 05/04/21 06/29/21 Previous Rx's Medication Instructions Recorded multivitamin with folic acid 1 tab PO DAILY #30 tab 12/11/20 [Thera] Eliquis 5 mg PO BID #90 tab 03/09/21 benzonatate 200 mg capsule 200 mg PO BID PRN #30 cap 05/23/21 fexofenadine 60 mg tablet 60 mg PO BID #60 tab 06/29/21 ketorolac 10 mg tablet 10 mg PO Q6H PRN 5 Days #30 tab 06/29/21 Allergies Allergy/AdvReac Type Severity Reaction Status Date / Time Sulfa (Sulfonamide Allergy Intermediate ALGY-Rash Verified 06/29/21 13:08 Antibiotics) methocarbamol [From Robaxin] Allergy Mild ADR-Itching Verified 06/29/21 13:08 acetaminophen [From Percocet] Allergy ALGY-Swell Verified 06/29/21 13:08 Lip/Tongue/Throat amoxicillin [From Augmentin] Allergy swelling Verified 06/29/21 13:08 azithromycin [From Zithromax] Allergy ADR-Itching Verified 06/29/21 13:08 clavulanic acid Allergy swelling Verified 06/29/21 13:08 [From Augmentin] clindamycin [From Cleocin] Allergy ALGY-Rash Verified 06/29/21 13:08 codeine Allergy ADR-Itching Verified 06/29/21 13:08 cyclobenzaprine Allergy ADR-Swelling Verified 06/29/21 13:08 [From Flexeril] of the Eye Egg Derived Allergy ADR-Vomitin Verified 06/29/21 13:08 g hydrocodone Allergy ALGY-Swell Verified 06/29/21 13:08 Lip/Tongue/Throat hydroxyzine Allergy ALGY-Hives Verified 06/29/21 13:08 loratadine [From Claritin] Allergy Unknown Verified 06/29/21 13:08 oxycodone [From Percocet] Allergy ALGY-Swell Verified 06/29/21 13:08 Lip/Tongue/Throat tizanidine Allergy ADR-Itching Verified 06/29/21 13:08 tramadol Allergy ALGY-Rash Verified 06/29/21 13:08 Course Vital Signs Temperature 97.9 F 06/30/21 20:45 Pulse Rate 86 06/30/21 20:45 Respiratory Rate 18 06/30/21 20:45 Blood Pressure 120/81 06/30/21 20:45 Pulse Oximetry 100 06/30/21 20:45 MDM - Medical Clearance MDM Narrative Medical decision making narrative: 46-year-old female came in today for concerns of exposure to COVID-19. Patient states that her son was positive and she was concerned she may becoming ill with it. Patient does have some medical conditions that puts her at high risk. Patient denies any symptoms. Lungs are clear to auscultation. Skin is warm and dry. No edema is noted in extremities. Differential diagnosis includes upper respiratory infection, allergy, COVID-19. COVID-19 antigen test was negative. Reviewed exam with patient with recommendations for treatment and follow-up. Patient reported understanding and agreed to plan. Lab Data Labs: Lab Results 06/30/21 20:56 SARS-CoV-2 Ag (Rapid) Negative (Negative) Discharge Plan Discharge Patient Disposition: Home Clinical Impression: Close exposure to 2019-nCoV Condition: Stable Prescriptions: No Action benzonatate 200 mg capsule 200 mg PO BID PRN (Reason: cough) Qty: 30 RF: 1 ketorolac 10 mg tablet 10 mg PO Q6H PRN (Reason: pain) 5 Days Qty: 30 RF: 5 fexofenadine [Angela Allergy] 60 mg tablet 60 mg PO BID Qty: 60 RF: 5 multivitamin with folic acid [Thera] 400 mcg Tablet 1 tab PO DAILY Qty: 30 RF: 0 Eliquis 5 mg tablet 5 mg PO BID Qty: 90 RF: 3 Cold & Head Congestion Severe 2 tab PO TID PRN (Reason: Congestion) RF: 0 Discharge Orders: Discharge ED (Routine); Ordered 06/30/21 Ordered By: Galdino Sandoval Referrals: Shaq Wallace MD [Primary Care Provider] - Discharge Diet: Usual diet Discharge Activity: Increase activity as tolerated Patient Instructions: Opioid Safety Activity Restrictions/Additional Instructions: Healthy diet and exercise. Drink plenty of fluids. Monitor for worsening symptoms and return as needed. On initial COVID-19 test that is negative does not rule out that you have the illness. If you start having symptoms for an upper respiratory infection including nasal drainage, cough, fever, shortness of breath you should be reevaluated.
[2021-06-30 21:16] LABS: SARS Covid-2 Antigen Negative (Negative)
== END 2021-06-30 21:33 | disposition home or self-care (01) ==
PROVIDERS: Emergency Medicine; Emergency Provider Nurse Practitioner Family; PCP Family Medicine Adult Medicine
DX: Z20.822 Contact with and (suspected) exposure to COVID-19 (principal); Z79.01 Long term (current) use of anticoagulants
CPT/HCPCS: 87426; 99282

== ENCOUNTER → 2021-07-07 13:10 | Outpatient (BNVA) | payer BC, SELFPAY | PROVIDERS: PCP Family Medicine Adult Medicine; Visit Provider Nurse Practitioner Family | DX: Z20.822 Contact with and (suspected) exposure to COVID-19 (principal) | CPT/HCPCS: 87426; 87635 ==

== ENCOUNTER → 2021-07-20 08:35 | Outpatient (BNVA) | payer BC, SELFPAY | PROVIDERS: PCP Family Medicine Adult Medicine; Visit Provider Physician Assistant | DX: M54.9 Dorsalgia, unspecified (principal); S22.080D Wedge compression fracture of T11-T12 vertebra, subsequent encounter for fracture with routine healing; X58.XXXD Exposure to other specified factors, subsequent encounter | CPT/HCPCS: 72070 ==

== ENCOUNTER 2021-07-26 23:34 | Emergency (ER) | payer BC, MEDICAID, SELFPAY ==
[2021-07-26 23:37] VITALS: BP 132/92; PULSE 85; RESP 18; O2SAT 100; BMI 21.6
--- NOTE | 2021-07-26 23:37 | CTR_ITS ---
PROCEDURE INFORMATION: Exam: CT Cervical Spine Without Contrast Exam date and time: 07/26/2021 11:37 PM Age: 46 years old Clinical indication: Injury or trauma; Blunt trauma; Injury details: Fall, hit back of head, ETOH TECHNIQUE: Imaging protocol: Computed tomography images of the cervical spine without contrast. Radiation optimization: All CT scans at this facility use at least one of these dose optimization techniques: automated exposure control; mA and/or kV adjustment per patient size (includes targeted exams where dose is matched to clinical indication); or iterative reconstruction. COMPARISON: CT cervical spin wo con* [id number] 01/04/2020 11:25 AM RADIATION DOSE METRICS: Total DLP (mGy-cm): 435.3 FINDINGS: Bones/joints: On axial CT images, no definite acute fracture is visible. Sagittal and coronal reconstructions show no acute fracture or subluxation. Mild to moderate degenerative disc changes and facet joint arthritis at several levels. Discs/Spinal canal/Neural foramina: Suspect a moderate bulging/protruding disc at C4-C5, more prominent to the right of the midline. MRI could be more specific/sensitive if clinically indicated. Lungs: No significant acute finding in the upper lungs. CT/CT cervical spin wo con* [id number] IMPRESSION: 1. No definite acute fracture or subluxation by CT. 2. Other findings discussed above.
--- NOTE | 2021-07-26 23:37 | CTR_ITS ---
PROCEDURE INFORMATION: Exam: CT Head Without Contrast Exam date and time: 07/26/2021 11:37 PM Age: 46 years old Clinical indication: Injury or trauma; Blunt trauma (contusions or hematomas) and laceration; Without residual foreign body; Head, generalized; Injury details: Fall, hit back of head, ETOH TECHNIQUE: Imaging protocol: Computed tomography of the head without contrast. Radiation optimization: All CT scans at this facility use at least one of these dose optimization techniques: automated exposure control; mA and/or kV adjustment per patient size (includes targeted exams where dose is matched to clinical indication); or iterative reconstruction. COMPARISON: CT head wo con* [id number] 10/25/2020 5:45 PM RADIATION DOSE METRICS: Total DLP (mGy-cm): 747.49 FINDINGS: Brain: No acute intracranial hemorrhage or mass effect. No definite acute infarct by CT. Fairly prominent cerebellar atrophy again noted, similar to the prior exam. Cerebral ventricles: Ventricle size is normal for age. Paranasal sinuses: Included paranasal sinuses are essentially clear. Mastoid air cells: No significant acute finding. Vasculature: Vascular calcifications in the internal carotid and vertebral basilar systems. Bones/joints: No definite acute skull fracture. CT/CT head wo con* [id number] IMPRESSION: 1. No acute intracranial hemorrhage or mass effect. 2. Other findings discussed above.
--- NOTE | 2021-07-27 00:10 | ED_ITS ---
HPI - Fall General: Chief Complaint: Fall Stated Complaint: FALL/ETOH Time Seen by Provider: 07/26/21 23:37 Source: patient and EMS Mode of arrival: EMS Limitations: no limitations History of Present Illness: HPI Narrative: 46-year-old female has a long history of alcoholism well-known to ER states that she has her mattress texture cocktail and she is try to lay down fell backwards and struck her head on the coffee table states this happened just prior to arrival she has pain in her posterior scalp along with some neck pains rates her pain 4-10 unknown if she had any loss conscious denies any pain elsewhere denies any vomiting or diarrhea Associated symptoms-after fall: Reports headache(s) and neck pain; Denies abdominal pain or chest pain Review of Systems Const: Denies: fever(s), chills, body aches or change in appetite Eyes: Denies: blurry vision or eye discomfort ENMT: Denies: throat pain or dental pain Card: Denies: chest pain Resp: Denies: dyspnea GI: Denies: abdominal pain, nausea, vomiting or diarrhea : Denies: dysuria Musc: Reports: neck pain Skin/Breast: Denies: rash Neuro: Reports: headache(s) Psych: Denies: depression Maxime/Lymph: Denies: easy bruising All/Imm: Denies: urticaria PFSH ED PFSH: Medical History (Updated 07/27/21 @ 00:14 by Aj Diggs MD) Allergic rhinitis Back pain Chronic coughing Compression fracture of thoracic vertebra Dyshidrotic hand dermatitis Fibromyalgia Folic acid deficiency GERD (gastroesophageal reflux disease) Gram-negative bacteremia H/O History of hypothyroidism HTN (hypertension) Hx of deep venous thrombosis Hx of pulmonary embolus Macrocytosis Migraine without aura, not intractable, without status migrainosus Nasal vestibulitis Nicotine abuse PSVT (paroxysmal supraventricular tachycardia) Pyelonephritis of right kidney Recurrent UTI Renal infarct Spinal stenosis, cervical region TMJ arthralgia Transaminitis Vitamin B12 deficiency anemia Vitamin D deficiency Surgical History H/O colonoscopy 2017 - normal History of hysterectomy with bilateral oophorectomy History of radiofrequency ablation (RFA) procedure for cardiac arrhythmia Hx of appendectomy S/P carpal tunnel release S/P tubal ligation Family History Mother Atrial fibrillation Hypertension Social History Smoking and tobacco status: current every day smoker cigarettes Packs smoked per day: 0.5 Years cigarettes smoked: 30 Alcohol intake: current Alcohol intake frequency: 0-2 Drinks per Day Lives independently: Yes Household members: spouse and family Marital status: service: No Current occupational status: unemployed History of recent travel: No Current gender identity: Female Female Reproductive History: Date of last menstrual period: 07/31/10 Physical Exam Const: COMMON NORMALS: no acute distress, patient oriented x3 and healthy appearing HENMT: COMMON NORMALS: normocephalic; head/scalp not atraumatic (Tenderness along posterior scalp over the occipital region) HEAD & SCALP: normocephalic; not atraumatic (Tenderness along posterior scalp over the occipital region) Eye: COMMON NORMALS: Equal, round and reactive pupils present and EOMs intact bilaterally PUPIL: Yes Equal, round and reactive pupils present Neck/C-Spine: OTHER: Some tenderness along C-spine no obvious deformity Chest: COMMONS NORMALS: normal inspection of the chest and normal palpation of entire chest wall Resp: COMMON NORMALS: normal respiratory effort, No retractions, No use of accessory muscles and clear to auscultation bilaterally AUSCULTATION: clear to auscultation bilaterally Cardio: COMMON NORMALS: regular rate, regular rhythm and No murmurs present (Cardio) RATE: regular rate RHYTHM: regular rhythm GI: COMMON NORMALS: Normal to inspection, nondistended, normoactive bowel sounds present, Soft to palpation, non-tender and no masses PALPATION: Yes Soft to palpation Extremity: COMMON NORMALS: normal to inspection and full ROM Neuro: COMMON NORMALS: patient oriented x3, moves all extremities and no focal motor deficits Psych: COMMON NORMALS: mental status grossly normal, Normal thought process present and cooperative THOUGHT PROCESS: Normal thought process present Skin: COMMON NORMALS: no rashes or lesions noted and no wounds GENERAL SKIN EXAM: no rashes or lesions noted Course Vital Signs: Vital signs: Vital Signs Pulse Rate 85 07/27/21 00:48 Respiratory Rate 18 07/27/21 00:48 Blood Pressure 132/92 07/27/21 00:48 Pulse Oximetry 100 07/27/21 00:48 MDM - Fall MDM Narrative: Medical decision making narrative: Patient presents after a fall closed head injury CT head CT C-spine here is negative she is well- appearing here she is able answer all my questions appropriately and able to ambulate I feel she is stable for discharge her is here we will discharge her with her . No other injuries from the fall. Imaging Data^: CT Head: Attestation: I personally reviewed and interpreted this imaging study as follows: Radiologist's impression: [email or web address] [address] [address] Scan Report Signed Patient: Denisa Orourke Unit #: [id number] : [id number] Age/Sex: 46 / F ADM Date: 07/26/21 Loc: ER Room/Bed: Attending Dr: Ordering Provider/Ordering MD: Aj Diggs MD Date of Service: 07/26/21 Procedure(s): CT head wo con* [id number] Accession Number(s): [id number] Report Number: [id number] PROCEDURE INFORMATION: Exam: CT Head Without Contrast Exam date and time: 07/26/2021 11:37 PM Age: 46 years old Clinical indication: Injury or trauma; Blunt trauma (contusions or hematomas) and laceration; Without residual foreign body; Head, generalized; Injury details: Fall, hit back of head, ETOH TECHNIQUE: Imaging protocol: Computed tomography of the head without contrast. Radiation optimization: All CT scans at this facility use at least one of these dose optimization techniques: automated exposure control; mA and/or kV adjustment per patient size (includes targeted exams where dose is matched to clinical indication); or iterative reconstruction. COMPARISON: CT head wo con* [id number] 10/25/2020 5:45 PM RADIATION DOSE METRICS: Total DLP (mGy-cm): 747.49 FINDINGS: Brain: No acute intracranial hemorrhage or mass effect. No definite acute infarct by CT. Fairly prominent cerebellar atrophy again noted, similar to the prior exam. Cerebral ventricles: Ventricle size is normal for age. Paranasal sinuses: Included paranasal sinuses are essentially clear. Mastoid air cells: No significant acute finding. Vasculature: Vascular calcifications in the internal carotid and vertebral basilar systems. Bones/joints: No definite acute skull fracture. CT/CT head wo con* [id number] IMPRESSION: 1. No acute intracranial hemorrhage or mass effect. 2. Other findings discussed above. Dictated By: Hang Alves MD Signed By: Hang Alves MD Signed Date/Time: 07/27/21 0005 DD/ [id number] Discharge Plan Discharge Patient Disposition: Home Clinical Impression: CHI (closed head injury) Qualifiers: Encounter type: initial encounter Qualified Code(s): S09.90XA - Unspecified injury of head, initial encounter Alcohol intoxication Qualifiers: Complication of substance-induced condition: uncomplicated Qualified Code(s): F10.920 - Alcohol use, unspecified with intoxication, uncomplicated Condition: Stable Prescriptions: No Action benzonatate 200 mg capsule 200 mg PO BID PRN (Reason: cough) Qty: 30 RF: 1 ondansetron HCl [Zofran] 4 mg tablet 4 mg PO Q8H PRN (Reason: nausea and vomiting) Qty: 20 RF: 0 fexofenadine 180 mg tablet 180 mg PO Q24H Qty: 30 RF: 5 ketorolac 10 mg tablet 10 mg PO Q6H PRN (Reason: pain) 30 Days Qty: 25 RF: 0 multivitamin with folic acid [Thera] 400 mcg Tablet 1 tab PO DAILY Qty: 30 RF: 0 Eliquis 5 mg tablet 5 mg PO BID Qty: 90 RF: 3 Cold & Head Congestion Severe 2 tab PO TID PRN (Reason: Congestion) RF: 0 Discharge Orders: Discharge ED (Routine); Ordered 07/27/21 Ordered By: Aj Diggs Referrals: Shaq Wallace MD [Primary Care Provider] - 1-3 days Discharge Diet: Advance as tolerated Discharge Activity: Resume usual activity Patient Instructions: Head Injury (ED) Coding Level of Care Code ED Dough Cutting Machine Operator for Chg Fwd 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
[2021-07-27 00:48] VITALS: BP 132/92; PULSE 85; RESP 18; O2SAT 100
== END 2021-07-27 00:45 | disposition home or self-care (01) ==
PROVIDERS: Emergency Provider Emergency Medicine; PCP Family Medicine Adult Medicine
DX: S09.8XXA Other specified injuries of head, initial encounter (principal); F10.920 Alcohol use, unspecified with intoxication, uncomplicated; Z79.01 Long term (current) use of anticoagulants; I10 Essential (primary) hypertension; F17.210 Nicotine dependence, cigarettes, uncomplicated; W19.XXXA Unspecified fall, initial encounter
CPT/HCPCS: 70450; 72125; 99283

== ENCOUNTER 2021-07-27 17:23 | Emergency (ER) | payer BC, MEDICAID, SELFPAY ==
[2021-07-27 17:29] VITALS: BP 141/96; PULSE 84; RESP 17; TEMP 36.9; O2SAT 97; BMI 22.8
--- NOTE | 2021-07-27 17:37 | W.ED.FALL ---
HPI - Fall General: Chief Complaint: Headache Stated Complaint: TRAUMA/ FALL LAST NIGHT Time Seen by Provider: 07/27/21 17:31 History of Present Illness: HPI Narrative: 46-year-old female placed in the emergency room by EMS after a fall last evening. She had fallen off the couch and hit her head on a coffee table next at the bed. Dr. Diggs at senior very early hours this morning she had CT of her head and neck both of which were unremarkable for any acute injury. Patient is a history of chronic alcohol abuse she denies using drinking any further today. She is complaining mostly of a headache. She has not had any recurrent trauma since she was seen earlier today. She refers pain to the back of her head occipital area on the left as well as to the neck. Is been no loss of consciousness. She follows all commands and has good facial symmetry see NIH score below MD complaint: fall Onset (ago): hour(s) Fall from: out of bed (Off couch) Fall witnessed: no Place fall occurred: home Loss of consciousness: None Prolonged down time: no Symptoms prior to fall: none Context: tripped/slipped Location of injury: head and neck Severity: moderate Quality: aching Associated symptoms-after fall: Reports headache(s) and neck pain; Denies abdominal pain, chest pain, confusion, difficulty walking, hematuria, lightheadedness, numbness, short of breath, vertigo or weakness Review of Systems Const: Denies: fever(s), chills, body aches, change in appetite, fatigue or malaise ENMT: Denies: throat pain, ear or mastoid pain, nasal discharge or nasal congestion Card: Denies: chest pain or lightheadedness Resp: Denies: dyspnea, productive cough or non-productive cough GI: Denies: abdominal pain : Denies: hematuria Musc: Reports: neck pain Skin/Breast: Denies: rash or pruritus Neuro: Reports: headache(s); Denies: difficulty walking, vertigo or confusion PFS ED PFSH: Medical History Allergic rhinitis Back pain Chronic coughing Compression fracture of thoracic vertebra Dyshidrotic hand dermatitis Fibromyalgia Folic acid deficiency GERD (gastroesophageal reflux disease) Gram-negative bacteremia H/O History of hypothyroidism HTN (hypertension) Hx of deep venous thrombosis Hx of pulmonary embolus Macrocytosis Migraine without aura, not intractable, without status migrainosus Nasal vestibulitis Nicotine abuse PSVT (paroxysmal supraventricular tachycardia) Pyelonephritis of right kidney Recurrent UTI Renal infarct Spinal stenosis, cervical region TMJ arthralgia Transaminitis Vitamin B12 deficiency anemia Vitamin D deficiency Surgical History H/O colonoscopy 2018 - normal History of hysterectomy with bilateral oophorectomy History of radiofrequency ablation (RFA) procedure for cardiac arrhythmia Hx of appendectomy S/P carpal tunnel release S/P tubal ligation Family History Mother Atrial fibrillation Hypertension Social History Smoking and tobacco status: current every day smoker cigarettes Packs smoked per day: 0.5 Years cigarettes smoked: 30 Alcohol intake: current Alcohol intake frequency: 0-2 Drinks per Day Lives independently: Yes Household members: spouse and family Marital status: service: No Current occupational status: unemployed History of recent travel: No Current gender identity: Female Female Reproductive History: Date of last menstrual period: 07/31/10 Physical Exam Const: COMMON NORMALS: no acute distress GENERAL APPEARANCE: cooperative and comfortable ORIENTATION/CONSCIOUSNESS: Yes awake, Yes oriented to person, Yes oriented to place and Yes oriented to time HENMT: COMMON NORMALS: normocephalic, atraumatic and hearing grossly normal bilaterally HEAD & SCALP: normocephalic and atraumatic Eye: COMMON NORMALS: Equal, round and reactive pupils present, EOMs intact bilaterally, conjunctivae normal and no scleral icterus CONJUNCTIVA: Yes conjunctivae normal PUPIL: Yes Equal, round and reactive pupils present Neck/C-Spine: COMMON NORMALS: full ROM, no lymphadenopathy, supple and no JVD Lymph: LYMPHATIC: no lymphadenopathy noted and no lymphedema noted Resp: COMMON NORMALS: normal respiratory effort, No retractions, No use of accessory muscles and clear to auscultation bilaterally AUSCULTATION: clear to auscultation bilaterally Cardio: COMMON NORMALS: no JVD, regular rate, regular rhythm and No murmurs present (Cardio) RATE: regular rate RHYTHM: regular rhythm GI: COMMON NORMALS: Soft to palpation and No hepatosplenomegaly present AUSCULTATION: Yes normoactive bowel sounds PALPATION: Yes Soft to palpation, No Tenderness to palpation present (GI), No Guarding due to palpation present (GI) and Yes No hepatosplenomegaly present Extremity: COMMON NORMALS: normal to inspection, capillary refill normal, no clubbing, cyanosis or edema, no calf tenderness and no pedal edema Neuro: SENSORIUM/ORIENTATION: Yes oriented to person, Yes oriented to place and Yes oriented to time Skin: COMMON NORMALS: no rashes or lesions noted GENERAL SKIN EXAM: no rashes or lesions noted Course Vital Signs: Vital signs: Vital Signs Temperature 98.5 F 07/27/21 17:29 Pulse Rate 84 07/27/21 17:29 Respiratory Rate 18 07/27/21 17:41 Blood Pressure 139/94 07/27/21 18:39 Pulse Oximetry 99 07/27/21 17:41 MDM - Fall MDM Narrative: Medical decision making narrative: Normal neurologic exam with no significant deficits. NIH score is 0. Patient and both state there is no recurrent trauma since she was seen earlier. Imaging from earlier today reviewed. Suspect this is continued muscle aches from the earlier injury. Give her a Medrol Dosepak diclofenac to use as needed take both with food follow-up as needed Discharge Plan Discharge Patient Disposition: Home Clinical Impression: Fall, Alcohol intoxication Condition: Stable Prescriptions: New diclofenac sodium 75 mg tablet,delayed release (DR/EC) 75 mg PO Q12H PRN (Reason: pain) Qty: 20 RF: 0 Medrol (Crispin) 4 mg tablets,dose pack See Rx Instructions .ROUTE .COMPLEX Qty: 21 RF: 0 No Action benzonatate 200 mg capsule 200 mg PO BID PRN (Reason: cough) Qty: 30 RF: 1 fexofenadine 180 mg tablet 180 mg PO Q24H RF: 0 ondansetron HCl [Zofran] 4 mg tablet 4 mg PO Q8H PRN (Reason: nausea and vomiting) Qty: 20 RF: 0 ketorolac 10 mg tablet 10 mg PO Q6H PRN (Reason: pain) 30 Days Qty: 25 RF: 0 multivitamin with folic acid [Thera] 400 mcg Tablet 1 tab PO DAILY Qty: 30 RF: 0 Eliquis 5 mg tablet 5 mg PO BID Qty: 90 RF: 3 Cold & Head Congestion Severe 2 tab PO TID PRN (Reason: Congestion) RF: 0 Discharge Orders: Discharge ED (Routine); Ordered 07/27/21 Ordered By: Fer Reynoso Referrals: Shaq Wallace MD [Primary Care Provider] - Patient Instructions: Opioid Safety Coding Level of Care Code ED Service Operations Manager for Chg Fwd NIH stroke score NIHSS Level Of Consciousness - 1a: 0 Level Of Consciousness Questions - 1b: Both Correct Level Of Consciousness Commands - 1c: Both Correct Best Gaze - 2: Normal Visual Collins - 3: No Visual Loss Facial Palsy - 4: Normal Motor Arm Right - 5: No Drift Motor Arm Left - 5: No Drift Motor Leg Right - 6: No Drift Motor Leg Left - 6: No Drift Limb Ataxia - 7: Absent Sensory - 8: Normal Best Language - 9: No Aphasia Dysarthia - 10: Normal Extinction And Inattention - 11: 0 Score Total Score: 0
[2021-07-27 17:41] VITALS: BP 141/96; RESP 18; O2SAT 99
[2021-07-27 18:39] VITALS: BP 139/94
--- NOTE | 2021-07-27 18:41 | PC.NURSE ---
reviewed discharge instructions with patient and spouse, removed IV, cath intact, pt elizabeth well. pt verbalizes understanding of new meds, patient is upset that she is being discharged, pt requested a wheelchair when taken to personal truck she go up and jumped in, pt spouse was heard laughing.
== END 2021-07-27 18:43 | disposition home or self-care (01) ==
PROVIDERS: Emergency Provider Family Medicine; PCP Family Medicine Adult Medicine
DX: F10.129 Alcohol abuse with intoxication, unspecified (principal); Z79.01 Long term (current) use of anticoagulants; I10 Essential (primary) hypertension; F17.210 Nicotine dependence, cigarettes, uncomplicated; W08.XXXA Fall from other furniture, initial encounter
CPT/HCPCS: 99283

== ENCOUNTER 2021-08-10 17:12 | Inpatient (IN) | payer BC, SELFPAY ==
[2021-08-10] VITALS (22 sets, daily range): BP systolic 125–150; BP diastolic 81–115; PULSE 70–96; RESP 15–18; TEMP 36.8–37.1; O2SAT 95–100
--- NOTE | 2021-08-10 | CTR_ITS ---
PROCEDURE INFORMATION: Exam: CT Head Without Contrast Exam date and time: 08/10/2021 5:15 PM Age: 46 years old Clinical indication: Speech disturbance; Slurred speech; Additional info: Stroke alert TECHNIQUE: Imaging protocol: Computed tomography of the head without contrast. Radiation optimization: All CT scans at this facility use at least one of these dose optimization techniques: automated exposure control; mA and/or kV adjustment per patient size (includes targeted exams where dose is matched to clinical indication); or iterative reconstruction. Other technique: STROKE PROTOCOL was implemented. COMPARISON: CT head wo con* [id number] 07/26/2021 11:45 PM RADIATION DOSE METRICS: Total DLP (mGy-cm): 823.65 FINDINGS: Brain: Stable asymmetric cerebellar atrophy. Mild cortical volume loss in the cerebral hemispheres. No abnormal brain attenuation. No intracranial hemorrhage. Cerebral ventricles: No ventriculomegaly. Paranasal sinuses: Visualized sinuses are unremarkable. No fluid levels. Mastoid air cells: Visualized mastoid air cells are well aerated. Vasculature: No hyperdense artery visualized. Bones/joints: Unremarkable. No acute fracture. Soft tissues: Unremarkable. CT/CT head wo con* [id number] IMPRESSION: 1. No acute intracranial abnormality. 2. Chronic cerebellar atrophy. ASSESSMENT: ASPECTS ([place] Stroke Program Early CT Score) is 10.
--- NOTE | 2021-08-10 17:28 | ECG_ITS ---
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 Measurements Intervals [place] Rate: 81 P: 30 TN: 162 QRS: 9 QRSD: 87 T: 56 QT: 405 QTc: 471 Interpretive Statements SINUS RHYTHM POSSIBLE RIGHT VENTRICULAR CONDUCTION DELAY [RSR (QR) IN V1/V2] Compared to ECG 05/09/2021 15:29:17 Myocardial infarct finding no longer present Electronically Signed On 08-11-2021 19:54:06 RESIDENCE LIFE DIRECTOR by Jeanne Zaidi M.D. [email or web address] [email or web address]/store/[id number]
--- NOTE | 2021-08-10 17:31 | W.ED.NEUROSD ---
HPI - Neuro Symptoms/Deficit General: Chief Complaint: Neuro Symptoms/Deficit Stated Complaint: STROKE LIKE SYMPTOMS Time Seen by Provider: 08/10/21 17:19 History of Present Illness: HPI Narrative: 46-year-old female presents emergency room via EMS with left-sided weakness and facial droop. This began approximately an hour and 15 minutes prior to arrival. Unfortunately the patient is on Eliquis. She previously had a DVT in the left leg. She also has a history of alcohol abuse. Her stroke score is 15. Onset (ago): hour(s) Last Observed Normal: 16:00 Timing confirmed by: other (Neighbor) Location: speech, left face, left arm and left leg History of same: No Severity: severe Quality: weak Relieving factors: none Exacerbating factors: none Context: sudden onset On Anticoagulants: Yes Associated symptoms: Deny chest pain, cough, diaphoresis, fevers/chills, headache(s), anorexia, malaise, nausea, seizures, short of breath, syncope, tingling, vertigo, vomiting or weakness Treatments Prior to Arrival: none Review of Systems Const: Denies: malaise or diaphoresis Card: Denies: chest pain or syncope Resp: Denies: dyspnea, productive cough or non-productive cough GI: Denies: nausea or vomiting Skin/Breast: Denies: rash or pruritus Neuro: Denies: headache(s) or vertigo PFS ED PFSH: Medical History Allergic rhinitis Back pain Bilateral lower extremity edema Chronic coughing Compression fracture of thoracic vertebra Dyshidrotic hand dermatitis Fibromyalgia Folic acid deficiency GERD (gastroesophageal reflux disease) Gram-negative bacteremia H/O History of hypothyroidism HTN (hypertension) Hx of deep venous thrombosis Hx of pulmonary embolus Macrocytosis Migraine without aura, not intractable, without status migrainosus Nasal vestibulitis Nicotine abuse PSVT (paroxysmal supraventricular tachycardia) Pyelonephritis of right kidney Recurrent UTI Renal infarct Spinal stenosis, cervical region TMJ arthralgia Transaminitis Vitamin B12 deficiency anemia Vitamin D deficiency Surgical History H/O colonoscopy 2018 - normal History of hysterectomy with bilateral oophorectomy History of radiofrequency ablation (RFA) procedure for cardiac arrhythmia Hx of appendectomy S/P carpal tunnel release S/P tubal ligation Family History Mother Atrial fibrillation Hypertension Social History Alcohol intake: current Alcohol intake frequency: 0-2 Drinks per Day Lives independently: Yes Household members: spouse and family Marital status: service: No Current occupational status: unemployed History of recent travel: No Current gender identity: Female Female Reproductive History: Date of last menstrual period: 07/31/10 NIH stroke score NIHSS: Level Of Consciousness - 1a: 1 Level Of Consciousness Questions - 1b: One Correct Level Of Consciousness Commands - 1c: One Correct Best Gaze - 2: Normal Visual Collins - 3: No Visual Loss Facial Palsy - 4: Partial Paralysis Motor Arm Right - 5: No Drift Motor Arm Left - 5: Drift Motor Leg Right - 6: No Drift Motor Leg Left - 6: Effort Against [place] Limb Ataxia - 7: Present In Two Limbs Sensory - 8: Mild To Moderate Loss Best Language - 9: Mild/Moderate Aphasia Dysarthia - 10: Severe Dysarthia Extinction And Inattention - 11: 1 Score: Total Score: 15 Physical Exam Const: GENERAL APPEARANCE: cooperative ORIENTATION/CONSCIOUSNESS: Yes awake HENMT: COMMON NORMALS: normocephalic, atraumatic and hearing grossly normal bilaterally HEAD & SCALP: normocephalic and atraumatic Eye: COMMON NORMALS: Equal, round and reactive pupils present, EOMs intact bilaterally, conjunctivae normal and no scleral icterus CONJUNCTIVA: Yes conjunctivae normal PUPIL: Yes Equal, round and reactive pupils present Neck/C-Spine: COMMON NORMALS: no JVD Resp: COMMON NORMALS: normal respiratory effort, No retractions, No use of accessory muscles and clear to auscultation bilaterally AUSCULTATION: clear to auscultation bilaterally Cardio: COMMON NORMALS: no JVD, regular rate, regular rhythm and No murmurs present (Cardio) RATE: regular rate RHYTHM: regular rhythm GI: COMMON NORMALS: Soft to palpation and No hepatosplenomegaly present AUSCULTATION: Yes normoactive bowel sounds PALPATION: Yes Soft to palpation, No Tenderness to palpation present (GI), No Guarding due to palpation present (GI) and Yes No hepatosplenomegaly present Extremity: COMMON NORMALS: normal to inspection, capillary refill normal, no clubbing, cyanosis or edema, no calf tenderness and no pedal edema Skin: COMMON NORMALS: no rashes or lesions noted GENERAL SKIN EXAM: no rashes or lesions noted Course Vital Signs: Vital signs: Vital Signs Temperature 98.1 F 08/11/21 05:30 Pulse Rate 74 08/11/21 05:30 Respiratory Rate 18 08/11/21 05:30 Blood Pressure 145/72 08/11/21 05:30 Pulse Oximetry 93 08/11/21 05:30 MDM - Neuro Symptoms/Deficit MDM Narrative: Medical decision making narrative: Acute CVA. She is on Eliquis so is not a candidate for any kind of intervention at this point. I did discuss briefly with Dr. 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 CTA of the head and neck does not show any acute embolism that would be amenable to embolectomy. Discussed with hospitalist admit orders written. Lab Data: Labs: Lab Results 08/10/21 08/10/21 08/10/21 17:21 17:21 17:21 WBC 4.6 10^3/uL 10^3/ uL (4.0-10.0) RBC 3.66 10^6/uL L 10 ^6/uL (4.1-5.3) Hgb 13.2 g/dL g/dL (11.5-15.3) Hct 40.3 % % (37.0-47.0) MCV 110.1 fl H fl (81-99) MCH 36.1 pg H pg (28.0-34.0) MCHC 32.8 g/dL g/dL (30.0-36.0) RDW 15.4 % H % (12.1-15.1) Plt Count 144 10^3/cmm 10^3 /cmm (130-400) MPV 10.7 fL H fL (7.4-10.4) Neut % (Auto) 39.4 % % Lymph % (Auto) 46.6 % % Tillman % (Auto) 8.4 % % Eos % (Auto) 4.1 % % Baso % (Auto) 1.3 % % Neut # (Auto) 1.83 10^3/uL 10^3 /uL (1.8-7.7) Lymph # (Auto) 2.2 10^3/uL 10^3/ uL (0.8-4.8) Tillman # (Auto) 0.4 10^3/uL 10^3/ uL (0.2-0.9) Eos # (Auto) 0.2 10^3/uL 10^3/ uL (0.0-0.8) Baso # (Auto) 0.1 10^3/uL 10^3/ uL (0.0-0.1) Nucleated RBC % (a uto) 0 % % Nucleated RBCs # 0.0 /100WBC /100W BC PT 12.50 SECONDS SEC ONDS (12.1-14.9) INR 0.91 (0.8-1.2) APTT 23.8 SECONDS L SE CONDS (23.9-36.7) Sodium 139 mmol/L mmol/L (136-145) Potassium 3.7 mmol/L mmol/L (3.5-5.1) Chloride 103 mmol/L mmol/L (98-107) Carbon Dioxide 20 mmol/L L mmol/ L (22-29) Anion Gap 19.7 H (5-19) BUN 6 mg/dL mg/dL (6-20) Creatinine 0.6 mg/dL mg/dL (0.5-0.9) GFR Calculation 107.2 mL/min mL/m in (90-130) Glucose 91 mg/dL mg/dL (65-115) Calculated Osmolal ity 285 mOsm/kg mOsm/ kg (285-295) Calcium 9.5 mg/dL mg/dL (8.5-10.5) Total Bilirubin 0.5 mg/dL mg/dL (0.15-1.2) AST 41 U/L H U/L (0-32) ALT 16 U/L U/L (0-33) Alkaline Phosphata se 115 IU/L H IU/L (35-105) Total Protein 7.2 g/dL g/dL (6.6-8.7) Albumin 4.1 g/dL g/dL (3.5-5.2) Globulin 3.1 g/dL g/dL (1.3-4.6) Ethyl Alcohol 08/10/21 18:00 WBC RBC Hgb Hct MCV MCH MCHC RDW Plt Count MPV Neut % (Auto) Lymph % (Auto) Tillman % (Auto) Eos % (Auto) Baso % (Auto) Neut # (Auto) Lymph # (Auto) Tillman # (Auto) Eos # (Auto) Baso # (Auto) Nucleated RBC % (a uto) Nucleated RBCs # PT INR APTT Sodium Potassium Chloride Carbon Dioxide Anion Gap BUN Creatinine GFR Calculation Glucose Calculated Osmolal ity Calcium Total Bilirubin AST ALT Alkaline Phosphata se Total Protein Albumin Globulin Ethyl Alcohol < 10 mg/dL mg/dL (0-10) Discharge Plan Discharge Patient Disposition: Admitted As Inpatient Admit Provider: Kevin Ames Clinical Impression: Cerebrovascular accident, Alcohol abuse, Hx of deep venous thrombosis, On continuous oral anticoagulation Condition: Stable Coding Level of Care Code 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
[2021-08-10 17:43] LABS: Basophils # 0.1 10^3/uL (0.0-0.1); Basophils % 1.3 %; Eosinophils # 0.2 10^3/uL (0.0-0.8); Eosinophils % 4.1 %; Hematocrit 40.3 % (37.0-47.0); Hemoglobin 13.2 g/dL (11.5-15.3); Lymphocytes # 2.2 10^3/uL (0.8-4.8); Lymphocytes % 46.6 %; Mean Corpuscular HGB Conc 32.8 g/dL (30.0-36.0); Mean Corpuscular Hemoglobin 36.1 pg (28.0-34.0); Mean Corpuscular Volume 110.1 fl (81-99); Mean Platelet Volume 10.7 fL (7.4-10.4); Monocytes # 0.4 10^3/uL (0.2-0.9); Monocytes % 8.4 %; Neutrophils # 1.83 10^3/uL (1.8-7.7); Neutrophils % 39.4 %; Nucleated Red Blood Cells % 0 %; Platelet Count 144 10^3/cmm (130-400); Red Blood Count 3.66 10^6/uL (4.1-5.3); Red Cell Distribution Width 15.4 % (12.1-15.1); White Blood Count 4.6 10^3/uL (4.0-10.0)
[2021-08-10 17:47] LABS: INR 0.91 (0.8-1.2); Partial Thromboplastin Time 23.8 SECONDS (23.9-36.7)
[2021-08-10 17:52] LABS: Alanine Aminotransferase 16 U/L (0-33); Albumin Level 4.1 g/dL (3.5-5.2); Alkaline Phosphatase 115 IU/L (35-105); Anion Gap 19.7 (5-19); Aspartate Amino Transferase 41 U/L (0-32); Blood Urea Nitrogen 6 mg/dL (6-20); Calcium 9.5 mg/dL (8.5-10.5); Carbon Dioxide 20 mmol/L (22-29); Chloride 103 mmol/L (98-107); Globulin 3.1 g/dL (1.3-4.6); Glomerular Filtration Rate 107.2 mL/min (90-130); Glucose 91 mg/dL (65-115); Osmolality Calculated 285 mOsm/kg (285-295); Potassium 3.7 mmol/L (3.5-5.1); Sodium 139 mmol/L (136-145); Total Bilirubin 0.5 mg/dL (0.15-1.2); Total Protein 7.2 g/dL (6.6-8.7)
--- NOTE | 2021-08-10 18:18 | CTR_ITS ---
PROCEDURE INFORMATION: Exam: CT Angiography Head With Contrast, Arteriography Exam date and time: 08/10/2021 6:18 PM Age: 46 years old Clinical indication: Speech disturbance; Slurred speech; Additional info: Acute CVA TECHNIQUE: Imaging protocol: Computed tomography angiography of the head with contrast. Exam focused on the arteries. 3D rendering (Not supervised by radiologist): MIP and/or 3D reconstructed images were created by the technologist. Radiation optimization: All CT scans at this facility use at least one of these dose optimization techniques: automated exposure control; mA and/or kV adjustment per patient size (includes targeted exams where dose is matched to clinical indication); or iterative reconstruction. Contrast material: OMN 350; Contrast volume: 95 ml; Contrast route: INTRAVENOUS (IV); COMPARISON: CT head wo con* [id number] 08/10/2021 5:07 PM RADIATION DOSE METRICS: Total DLP (mGy-cm): 1728.09 FINDINGS: ANTERIOR CIRCULATION: Right internal carotid artery: Calcified plaque in the cavernous right internal carotid artery with moderate stenosis. Right middle cerebral artery: Unremarkable. No occlusion or significant stenosis. No aneurysm. Right anterior cerebral artery: Unremarkable. No occlusion or significant stenosis. No aneurysm. Left internal carotid artery: Calcified plaque in the cavernous left internal carotid artery with mild stenosis. Left middle cerebral artery: Unremarkable. No occlusion or significant stenosis. No aneurysm. Left anterior cerebral artery: Unremarkable. No occlusion or significant stenosis. No aneurysm. POSTERIOR CIRCULATION: Right vertebral artery: Unremarkable. No occlusion or significant stenosis. No aneurysm. Left vertebral artery: Unremarkable. No occlusion or significant stenosis. No aneurysm. Basilar artery: Unremarkable. No occlusion or significant stenosis. No aneurysm. Right posterior cerebral artery: Unremarkable. No occlusion or significant stenosis. No aneurysm. Left posterior cerebral artery: Unremarkable. No occlusion or significant stenosis. No aneurysm. Brain: No definite mass, mass effect, or midline shift. Cerebral ventricles: No ventriculomegaly. Bones/joints: Unremarkable. No acute fracture. Soft tissues: Unremarkable. PROCEDURE INFORMATION: Exam: CT Angiography Neck With Contrast Exam date and time: 08/10/2021 6:18 PM Age: 46 years old Clinical indication: Speech disturbance; Slurred speech; Additional info: Acute CVA TECHNIQUE: Imaging protocol: Computed tomography angiography of the neck with contrast. 3D rendering (Not supervised by radiologist): MIP and/or 3D reconstructed images were created by the technologist. Radiation optimization: All CT scans at this facility use at least one of these dose optimization techniques: automated exposure control; mA and/or kV adjustment per patient size (includes targeted exams where dose is matched to clinical indication); or iterative reconstruction. Contrast material: OMN 350; Contrast volume: 95 ml; Contrast route: INTRAVENOUS (IV); COMPARISON: CT head wo con* [id number] 08/10/2021 5:07 PM RADIATION DOSE METRICS: Total DLP (mGy-cm): 1728.09 FINDINGS: Right common carotid artery: Medial deviation of the bilateral common and internal carotid arteries. No stenosis or dissection. Right internal carotid artery: No stenosis of the extracranial segment. No dissection or occlusion. Right external carotid artery: No occlusion or stenosis of the origin. Left common carotid artery: No stenosis. No dissection or occlusion. Left internal carotid artery: Mild calcified plaque in the proximal left internal carotid artery with 0% stenosis. Left external carotid artery: No occlusion or stenosis of the origin. Right vertebral artery: No stenosis. No dissection or occlusion. Left vertebral artery: No stenosis. No dissection or occlusion. Soft tissues: Normal. No significant soft tissue swelling. Bones/joints: No acute fracture. CT/CT angio headneck* [id number] IMPRESSION: 1. Calcified plaque in the cavernous internal carotid arteries with moderate stenosis on the right and mild stenosis on the left. IMPRESSION: 1. No large artery stenosis or occlusion. REFERENCES: NASCET CRITERIA. The degree of internal carotid artery stenosis is based on NASCET criteria. Normal is no stenosis. Mild is less than 50% stenosis. Moderate is 50-69% stenosis. Severe is 70% to 99% stenosis. Total occlusion is no detectable patent lumen.
[2021-08-10] MEDS: iohexol 350 mg/mL 100 mL Btl IV (18:34)
[2021-08-10 18:42] LABS: Alcohol Level < 10 mg/dL (0-10)
[2021-08-10 20:31] LABS: Amphetamines Screen Urine Negative (Negative); Barbiturates Screen Urine Negative (Negative); Benzodiazepines Screen Urine Negative (Negative); Cocaine Screen Urine Negative (Negative); Opiate Screen Urine Negative (Negative); PCP Screen Urine Negative (Negative); THC Screen Urine Negative (Negative)
[2021-08-10 20:37] LABS: Urine Appearance Clear (CLEAR); Urine Color Yellow (Yellow); pH Urine 7 (5-7)
[2021-08-10 20:38] LABS: Add Urine Microscopic? YES; Bilirubin Urine Neg (Negative); Blood Urine Neg (Negative); Glucose Urine UA Norm (Normal); Ketones Urine Negative (Negative); Leukocyte Esterase Urine Trace (Negative); Nitrate Urine Positive (Negative); Protein Urine Neg (Negative); Specific Gravity, Urine 1.005 (1.005-1.030); Urobilinogen Urine Norm (Negative)
[2021-08-10 20:40] LABS: Add Urine Culture? Yes
--- NOTE | 2021-08-10 22:14 | P.HP_ITS ---
Providers/Chief Complaint Admitting Physician: Kevin Ames MD Primary Care Provider: Shaq Wallace MD Chief Complaint: STROKE LIKE SYMPTOMS History of Present Illness Denisa Orourke is a 46 year old female with a past medical history of DVT and bilateral pulmonary emboli, diastolic CHF, history of alcohol abuse, history of PSVT, GERD, hypertension, COPD presenting today to ER at 5:15 pm with new onset left-sided weakness and facial droop that started hour and 15 minutes prior to arrival. NIHSS 15 at presentation, not considered a tPA candidate as she is on Eliwuis for a h/o PE. More recently she has been c/o increasing LE swelling an dpain in her lower extremities. CT head today negative for acute events. CTA without large artery stenosis or occlusion.Calcified plaque in the cavernous internal carotid arteries with moderate stenosis on the right and mild stenosis on the left. previously had autoimmune panels in 02/2021 and 05/2020. Review of Systems General: Reports: 10 or more systems reviewed and unremarkable except in HPI and below Const: Denies: fever(s), chills or body aches Eyes: Denies: change in vision, blurry vision or photophobia ENMT: Reports: hoarseness; Denies: throat pain, enlarged tonsils, odynophagia or nasal congestion Card: Denies: chest pain, palpitations, irregular heart rhythm, edema, sw elling of feet/ankles, lightheadedness, pre-syncope, dyspnea on exertion or orthopnea Resp: Denies: dyspnea, productive cough, non-productive cough, wheezing, stridor, pain on inspiration, change in phlegm color, hemoptysis or chest congestion GI: Denies: abdominal pain, nausea, vomiting, hematemesis, coffee ground emesis, dysphagia, heartburn, diarrhea, constipation, GI cramping, change in stool character, hematochezia or melena : Denies: flank pain, difficulty voiding, dysuria, urinary frequency, urinary urgency, urinary hesitancy or hematuria Musc: Denies: neck pain, back pain, extremity pain, joint swelling, joint warmth or deformity Neuro: Denies: headache(s), numbness in extremities, weakness in extremities, sensory changes, difficulty walking, frequent falls, dizziness, vertigo, behavioral changes, Slurred speech present or seizure-like activity Psych: Denies: anxiety, depression, suicidal ideation or homicidal ideation Endo: Denies: polyuria, polydipsia, tired all the time, cold intolerance or hot flashes Maxime/Lymph: Denies: easy bruising or easy bleeding Medications/Allergies Home Medications Medication Instructions Recorded Confirmed Last Taken Type multivitamin with folic acid 1 tab PO DAILY #30 tab 12/11/20 08/10/21 08/09/21 Rx [Thera] Cold & Head Congestion Severe 2 tab PO TID PRN 05/04/21 08/10/21 05/03/21 History benzonatate 200 mg capsule 200 mg PO BID PRN #30 cap 05/23/21 08/10/21 Unknown Rx ondansetron HCl 4 mg tablet 4 mg PO Q8H PRN #20 tab 07/08/21 08/10/21 Unknown Rx fexofenadine 180 mg tablet 180 mg PO Q24H tab 07/27/21 08/10/21 Unknown History celecoxib 200 mg capsule 200 mg PO BID #60 cap 08/02/21 08/10/21 08/09/21 Rx hydrochlorothiazide 25 mg tablet 25 mg PO QAM #30 tab 08/02/21 08/10/21 08/09/21 Rx Eliquis 5 mg PO BID 08/10/21 08/10/21 08/09/21 History Allergies Allergy/AdvReac Type Severity Reaction Status Date / Time diphenhydramine Allergy Intermediate ALGY-Rash Verified 08/02/21 10:33 [From Benadryl] Sulfa (Sulfonamide Allergy Intermediate ALGY-Rash Verified 08/02/21 10:33 Antibiotics) methocarbamol [From Robaxin] Allergy Mild ADR-Itching Verified 08/02/21 10:33 acetaminophen [From Percocet] Allergy ALGY-Swell Verified 08/02/21 10:33 Lip/Tongue/Throat amoxicillin [From Augmentin] Allergy swelling Verified 08/02/21 10:33 azithromycin [From Zithromax] Allergy ADR-Itching Verified 08/02/21 10:33 clavulanic acid Allergy swelling Verified 08/02/21 10:33 [From Augmentin] clindamycin [From Cleocin] Allergy ALGY-Rash Verified 08/02/21 10:33 codeine Allergy ADR-Itching Verified 08/02/21 10:33 cyclobenzaprine Allergy ADR-Swelling Verified 08/02/21 10:33 [From Flexeril] of the Eye Egg Derived Allergy ADR-Vomitin Verified 08/02/21 10:33 g hydrocodone Allergy ALGY-Swell Verified 08/02/21 10:33 Lip/Tongue/Throat hydroxyzine Allergy ALGY-Hives Verified 08/02/21 10:33 loratadine [From Claritin] Allergy Unknown Verified 08/02/21 10:33 oxycodone [From Percocet] Allergy ALGY-Swell Verified 08/02/21 10:33 Lip/Tongue/Throat tizanidine Allergy ADR-Itching Verified 08/02/21 10:33 tramadol Allergy ALGY-Rash Verified 08/02/21 10:33 PFSH Acute PFSH: Medical History Allergic rhinitis Back pain Bilateral lower extremity edema Chronic coughing Compression fracture of thoracic vertebra Dyshidrotic hand dermatitis Fibromyalgia Folic acid deficiency GERD (gastroesophageal reflux disease) Gram-negative bacteremia H/O History of hypothyroidism HTN (hypertension) Hx of deep venous thrombosis Hx of pulmonary embolus Macrocytosis Migraine without aura, not intractable, without status migrainosus Nasal vestibulitis Nicotine abuse PSVT (paroxysmal supraventricular tachycardia) Pyelonephritis of right kidney Recurrent UTI Renal infarct Spinal stenosis, cervical region TMJ arthralgia Transaminitis Vitamin B12 deficiency anemia Vitamin D deficiency Surgical History H/O colonoscopy 2018 - normal History of hysterectomy with bilateral oophorectomy History of radiofrequency ablation (RFA) procedure for cardiac arrhythmia Hx of appendectomy S/P carpal tunnel release S/P tubal ligation Family History Mother Atrial fibrillation Hypertension Social History Alcohol intake: current Alcohol intake frequency: 0-2 Drinks per Day Lives independently: Yes Household members: spouse and family Marital status: service: No Current occupational status: unemployed History of recent travel: No Current gender identity: Female Female Reproductive History: Date of last menstrual period: 07/31/10 Vitals/I&O/Wt Last Vital Signs Pulse 77 08/10/21 21:48 Resp 18 08/10/21 20:00 BP 131/90 08/10/21 20:00 Pulse Ox 98 08/10/21 21:48 Weight last 48 hrs Weight 73.028 kg Physical Exam Narrative: EXAM NARRATIVE: General: No acute distress, dysarthria, failed beds yoli swallow evaluation HEENT: PERRLA, pupils bilaterally equal and reactive, pallors not present Chest: Normal vesicular breath sounds, no added sounds, equal good air entry bilaterally CVS: S1-S2 regular, no murmurs, no tachycardia, no gallops, no rubs Abdomen: Soft, nontender, no organomegaly, bowel sounds present Neuro: dysathria, slurred speech, left side upper and lower extremity drift Data : 08/11/21 05:02 08/11/21 05:02 Other data: Radiology Impressions Head CT 08/10/21 00:00 IMPRESSION: 1. No acute intracranial abnormality. 2. Chronic cerebellar atrophy. ASSESSMENT: ASPECTS (Nga Stroke Program Early CT Score) is 10. Head/Neck CTA 08/10/21 18:18 IMPRESSION: 1. Calcified plaque in the cavernous internal carotid arteries with moderate stenosis on the right and mild stenosis on the left. IMPRESSION: 1. No large artery stenosis or occlusion. REFERENCES: NASCET CRITERIA. The degree of internal carotid artery stenosis is based on NASCET criteria. Normal is no stenosis. Mild is less than 50% stenosis. Moderate is 50-69% stenosis. Severe is 70% to 99% stenosis. Total occlusion is no detectable patent lumen. Laboratory Results WBC 4.6 10^3/uL (4.0-10.0) 08/10/21 17:21 RBC 3.66 10^6/uL (4.1-5.3) L 08/10/21 17:21 Hgb 13.2 g/dL (11.5-15.3) 08/10/21 17:21 Hct 40.3 % (37.0-47.0) 08/10/21 17:21 MCV 110.1 fl (81-99) H 08/10/21 17:21 MCH 36.1 pg (28.0-34.0) H 08/10/21 17: MCHC 32.8 g/dL (30.0-36.0) 08/10/21 17: RDW 15.4 % (12.1-15.1) H 08/10/21 17:21 Plt Count 144 10^3/cmm (130-400) 08/10/21 17:21 MPV 10.7 fL (7.4-10.4) H 08/10/21 17:21 Neut % (Auto) 39.4 % 08/10/21 17:21 Lymph % (Auto) 46.6 % 08/10/21 17:21 Clark % (Auto) 8.4 % 08/10/21 17:21 Eos % (Auto) 4.1 % 08/10/21 17:21 Baso % (Auto) 1.3 % 08/10/21 17:21 Neut # (Auto) 1.83 10^3/uL (1.8-7.7) 08/10/21 17:21 Lymph # (Auto) 2.2 10^3/uL (0.8-4.8) 08/10/21 17:21 Clark # (Auto) 0.4 10^3/uL (0.2-0.9) 08/10/21 17:21 Eos # (Auto) 0.2 10^3/uL (0.0-0.8) 08/10/21 17:21 Baso # (Auto) 0.1 10^3/uL (0.0-0.1) 08/10/21 17:21 Nucleated RBC % (auto) 0 % 08/10/21 17: Nucleated RBCs # 0.0 /100WBC 08/10/21 17:21 PT 12.50 SECONDS (12.1-14.9) 08/10/21 17:21 INR 0.91 (0.8-1.2) 08/10/21 17:21 APTT 23.8 SECONDS (23.9-36.7) L 08/10/21 17:21 Sodium 139 mmol/L (136-145) 08/10/21 17:21 Potassium 3.7 mmol/L (3.5-5.1) 08/10/21 17:21 Chloride 103 mmol/L (98-107) 08/10/21 17:21 Carbon Dioxide 20 mmol/L (22-29) L 08/10/21 17:21 Anion Gap 19.7 (5-19) H 08/10/21 17:21 BUN 6 mg/dL (6-20) 08/10/21 17:21 Creatinine 0.6 mg/dL (0.5-0.9) 08/10/21 17:21 GFR Calculation 107.2 mL/min (90-130) 08/10/21 17:21 Glucose 91 mg/dL (65-115) 08/10/21 17:21 Calculated Osmolality 285 mOsm/kg (285-295) 08/10/21 17:21 Calcium 9.5 mg/dL (8.5-10.5) 08/10/21 17:21 Total Bilirubin 0.5 mg/dL (0.15-1.2) 08/10/21 17:21 AST 41 U/L (0-32) H 08/10/21 17:21 ALT 16 U/L (0-33) 08/10/21 17:21 Alkaline Phosphatase 115 IU/L (35-105) H 08/10/21 17:21 Total Protein 7.2 g/dL (6.6-8.7) 08/10/21 17:21 Albumin 4.1 g/dL (3.5-5.2) 08/10/21 17:21 Globulin 3.1 g/dL (1.3-4.6) 08/10/21 17:21 Urine Color Yellow (Yellow) 08/10/21 20:10 Urine Appearance Clear (CLEAR) 08/10/21 20:10 Urine pH 7 (5-7) 08/10/21 20:10 Ur Specific [place] 1.005 (1.005-1.030) 08/10/21 20:10 Urine Protein Neg (Negative) 08/10/21 20:10 Urine Glucose (UA) Norm (Normal) 08/10/21 20:10 Urine Ketones Negative (Negative) 08/10/21 20:10 Urine Blood Neg (Negative) 08/10/21 20:10 Urine Nitrate Positive (Negative) H 08/10/21 20:10 Urine Bilirubin Neg (Negative) 08/10/21 20:10 Urine Urobilinogen Norm mg/dL (Negative) 08/10/21 20:10 Ur Leukocyte Esterase Trace (Negative) H 08/10/21 20:10 Urine RBC None /hpf (0-2) 08/10/21 20:10 Urine WBC None /hpf (0-5) 08/10/21 20:10 Ur Squamous Epith Cells None /hpf (0-5) 08/10/21 20:10 Amorphous Sediment Not Reportable 08/10/21 20:10 Urine Bacteria None /hpf (NONE) 08/10/21 20:10 Urine Opiates Screen Negative ng/mL (Negative) 08/10/21 20:10 Ur Barbiturates Screen Negative ng/mL (Negative) 08/10/21 20:10 Ur Phencyclidine Scrn Negative ng/mL (Negative) 08/10/21 20:10 Ur Amphetamines Screen Negative ng/mL (Negative) 08/10/21 20:10 U Benzodiazepines Scrn Negative ng/mL (Negative) 08/10/21 20:10 Urine Cocaine Screen Negative ng/mL (Negative) 08/10/21 20:10 U Marijuana (THC) Screen Negative ng/mL (Negative) 08/10/21 20:10 Ethyl Alcohol < 10 mg/dL (0-10) 08/10/21 18:00 Echo 02/2021: CONCLUSIONS Normal left ventricular size and systolic function, EF 67 %. No regional wall motion abnormalities. Grade I/IV diastolic dysfunction (abnormal relaxation filling pattern), normal to mildly elevated filling pressures. Trace pulmonary valve regurgitation. Trace mitral valve regurgitation. No evidence of right ventricular strain. The PA pressure could not be calculated properly because of the poor Doppler signal-possibly within normal limits There is no pericardial effusion. There are no intracardiac masses. Compared to the study from 03/23/2020, there may not be a significant change. A&P Assessment and plan (1) Cerebrovascular accident: Presenting today with c/o large left CVA with NIHSS [address] head unrevealing, CTA findings as above, check MRI brain Allow permissive HTN Hold anticoagulation for now to avoid conversion to hemorrhagic stroke Check LE duplex given recently increasing swelling and pain B/L echo 02/2021 as noted above Telemetry monitoring to evaluate for underlying arrhythmias Start ASA, atorvastatin Status: Acute (2) On continuous oral anticoagulation: Status: Acute Attestations Medical Necessity Statement*: anticipate >2midnight admission for acute stroke management Coding Level of Care Code Acute Holiday Detector Operator for Apryl Salas Diagnoses Cerebrovascular accident I63.9 On continuous oral anticoagulation Z79.01
[2021-08-10] MEDS: sodium chloride 0.9% 1,000 ML 100 ML IV (22:40)
[2021-08-11] MEDS: ketorolac 30 mg/mL INJ 15 MG IVP ×3 (00:11→18:51)
[2021-08-11 05:30] VITALS: BP 145/72; PULSE 74; RESP 18; TEMP 36.7; O2SAT 93
[2021-08-11 06:41] LABS: Basophils % 1.2 %; Eosinophils # 0.2 10^3/uL (0.0-0.8); Eosinophils % 5.3 %; Hematocrit 35.2 % (37.0-47.0); Hemoglobin 11.7 g/dL (11.5-15.3); Lymphocytes # 1.7 10^3/uL (0.8-4.8); Lymphocytes % 49.7 %; Mean Corpuscular HGB Conc 33.2 g/dL (30.0-36.0); Mean Corpuscular Volume 111.4 fl (81-99); Monocytes # 0.3 10^3/uL (0.2-0.9); Monocytes % 9.1 %; Neutrophils # 1.18 10^3/uL (1.8-7.7); Neutrophils % 34.7 %; Nucleated Red Blood Cells % 0 %; Platelet Count 148 10^3/cmm (130-400); Red Blood Count 3.16 10^6/uL (4.1-5.3); Red Cell Distribution Width 15.5 % (12.1-15.1); White Blood Count 3.4 10^3/uL (4.0-10.0)
[2021-08-11 07:01] LABS: Anion Gap 15.6 (5-19); Blood Urea Nitrogen 6 mg/dL (6-20); Calcium 8.3 mg/dL (8.5-10.5); Carbon Dioxide 22 mmol/L (22-29); Chloride 106 mmol/L (98-107); Chol HDL Ratio 2.11 mg/dL (0.0-4.40); Cholesterol 173 mg/dL (0-200); Glomerular Filtration Rate 89.7 mL/min (90-130); Glucose 77 mg/dL (65-115); HDL Cholesterol 82 mg/dL (60-100); LDL Cholesterol Calculated 79 mg/dL (50-129); LDL HDL Ratio 0.96 RATIO (0.00-3.22); Osmolality Calculated 286 mOsm/kg (285-295); Potassium 3.6 mmol/L (3.5-5.1); Sodium 140 mmol/L (136-145); Triglycerides 59 mg/dL (0-150)
--- NOTE | 2021-08-11 07:17 | USCV_ITS ---
Denisa Orourke Age: 46 Gender: F : 1975 Exam Date: 08/11/2021 07:43 Ordering Phys: Karyna Benito MD Technologist: NANNETTE Exam Location: [facility] [place] Indication: DVT PROCEDURES: Venous duplex imaging was performed in bilateral lower extremities. The following venous structures were evaluated: common femoral vein, profunda vein, proximal portion of the greater saphenous vein, superficial femoral vein, and the popliteal vein. In addition, the posterior tibial and peroneal trunk were evaluated. Serial compression, augmentation maneuvers, and spectral Doppler flow evaluation were performed. FINDINGS: There appears to be a DVT noted within the left peroneal. All other veins appear free of thrombus at this time. CONCLUSIONS DVT left peroneal vein in calf Remainder of BLE free of thrombus pre albright given to uHi at 8:45am 08/11/2021 Jesus Kendall MD (Electronically Signed) Final Date: 11 August 2021 09:45 S
[2021-08-11 07:21] LABS: Estmated Average Glucose 68
[2021-08-11 08:00] VITALS: BP 152/76; PULSE 94; RESP 16; TEMP 36.9; O2SAT 94
[2021-08-11] MEDS: sodium chloride 0.9% 1,000 ML 100 ML IV ×2 (09:48→21:35)
--- NOTE | 2021-08-11 10:42 | MR_ITS ---
WS: [id number] MRI HEAD WITHOUT CONTRAST TECHNIQUE: Sagittal T1, T2 axial, T2 axial FLAIR, axial and coronal T1 images, axial susceptibility w eighted imaging, axial diffusion weighted images, and coronal T2 images were obtained. CLINICAL INFORMATION: stroke, left sided weakness COMPARISON: CT August 10, 2021 FINDINGS: No evidence of restricted diffusion to suggest acute ischemia. Ventricular system and basal cisterns are patent. Mild supratentorial white matter changes can be seen with hypertension, diabetes, and small vessel di sease. Mild parenchymal volume loss worse in the posterior fossa. Otherwise normal posterior fossa. Normal vascular flow voids at the skull base. No extra-axial fluid collections. No evidence of mass or mass effect. Paranasal sinuses and mastoid air cells are well aer ated. No hemosiderin on the susceptibly weighted images. Normal optic chiasm and pituitary infundibul um. Temporal lobes and hippocampal formations are normal in appearance. MR/MR head wo con* [id number] IMPRESSION: 1. No evidence of restricted diffusion to suggest acute ischemia. 2. Mild supratentorial white matter changes can be seen with hypertension, sudha betes, and small vessel disease. 3. No hemosiderin on susceptibly weighted images. 4. Mild parenchymal volume loss more prominent in the cerebellum. 5. No other significant findings.
--- NOTE | 2021-08-11 11:00 | PC.CHAP ---
Pastoral Care Encounter/Spiritual Assessment Type of Contact [] Declined remote sensing technician visit [] Patient/Family/Request visit [] Outpatient visit [] Follow-up visit [] Physician referral [] Code/Alert [x] Routine visit [] Staff referral [] Actively dying [] Patient sleeping [] Family support [] [] Out of room [] Palliative care [] [] Receiving care in room [] Pre-surgical visit [] Trauma [] Long length of stay [] ICU visit [] Other: Relational/Emotional Strength [x] Patient feels connected with others/family/visitors/staff [] Distress [] Loneliness/isolation [] Abandonment Spirituality of Patient [x] Person of Lisa [] Attends Christian of their Lisa [x] Believes in Prayer [] Reads Bible or Orthodoxy materials [] There are Spiritual issues to be addressed Director Of Preclinical Research Interventions [x] Prayer [x] Active listening [x] Non-anxious presence [] Spiritual/emotional support [] Crisis/trauma care x [] Spiritual counseling [] Bereavement support [] Provided bereavement packet [] Provided Bible/devotional materials [] Provided toy/stuffed animal, coloring book to patient or family member [] Provided Communion [] Anointing/[place] [] Salvation [x] Completed spiritual assessment [] Other: Impact on Illness or Injury [] Angry [] Fearful [] Anxious [] Often cries [] Exhaustion [] Unable to work [] Unable to attend alevism [] Unable to walk/stand [] Unable to read [] Unable to drive [] Unable to eat/drink [] Unable to sleep [] Unable to be with family [] Patient intubated [] Other: Summary Time spent with patient 10 min
[2021-08-11 12:00] VITALS: BP 139/80; PULSE 72; RESP 16; TEMP 37.1; O2SAT 96
--- NOTE | 2021-08-11 14:10 | PM.PN ---
Subjective Subjective: Interval history: No acute events overnight. On examination patient sitting comfortably in bed. Working with physical therapy. Patient is able to have conversation but still dysarthric. Complaining of pain in back. Speech she had fallen few months ago after which she has been having back pain. Wants to go back to work as soon as possible. Wants to go home when possible with physical therapy. States she was taking Eliquis currently but had missed in between because medication could not be approved through insurance. Vitals/I&O/Wt Last Vital Signs Temp 98.7 F 08/11/21 12:00 Pulse 72 08/11/21 12:00 Resp 16 08/11/21 12:00 BP 139/80 08/11/21 12:00 Pulse Ox 96 08/11/21 12:00 08/10/21 08/11/21 08/11/21 22:59 06:59 14:59 Intake Total 1000 / 1000 Output Total 0 / 0 Balance 0 / 0 1000 / 1000 Weight last 48 hrs Weight 73.028 kg Physical Exam Narrative: EXAM NARRATIVE: General: No acute distress, dysarthria, AOx3 HEENT: PERRLA, pupils bilaterally equal and reactive, pallors not present Chest: Normal vesicular breath sounds, no added sounds, equal good air entry bilaterally CVS: S1-S2 regular, no murmurs, no tachycardia, no gallops, no rubs Abdomen: Soft, nontender, no organomegaly, bowel sounds present Neuro: dysathria, slurred speech, left side upper and lower extremity drift Data : 08/11/21 05:02 08/11/21 05:02 A&P Assessment and plan (1) Cerebrovascular accident: Appreciate CT and CTA head and neck results. HbA1c 4, lipid panel appreciated. Continue with aspirin, statin. Restart Eliquis at home dose 5 mg twice daily. Check MRI brain. PT/OT evaluation. Advance diet as per swallow evaluation. Goal blood pressure around 140/90 mmHg now. Continue on telemetry. Status: Acute (2) On continuous oral anticoagulation: Status: Acute (3) Hx of deep venous thrombosis: Repeat lower limb Dopplers appreciated. No concern for PE for now. Remains on room air. Continue with home dose of Eliquis. Will continue to monitor for hemorrhagic conversion given possible CVA. Status: Acute (4) Transaminitis: Secondary to alcohol abuse. Currently at baseline. Status: Acute (5) HTN (hypertension): Status: Acute Qualifiers: Hypertension type: essential hypertension Qualified Code(s): I10 - Essential (primary) hypertension (6) Alcohol abuse: Level negative on admission. No current signs of alcohol withdrawal. Status: Acute Additional A&P Information Full code. Eliquis for her DVT prophylaxis. Famotidine for PUD prophylaxis. Diet as per swallow evaluation. Attestations Medical Necessity Statement*: Patient requires further hospitalization for evaluation and management of CVA leading to severe dysarthria, gait disturbance and weakness which makes her at a higher risk of falls, swallow evaluation so that diet can be advanced, monitoring for hemorrhagic conversion given being on Eliquis for lower limb DVT Time Spent in Patient Care: Greater than 35 minutes (>than 50% of time spent in counselling and/or direct pt care on unit). Coding Level of Care Code Acute Stave And Bolt Equalizer for Chg Fwd Diagnoses Cerebrovascular accident I63.9 On continuous oral anticoagulation Z79.01 Hx of deep venous thrombosis Z86.718 Transaminitis R74.01 HTN (hypertension) I10 Hypertension type: essential hypertension Alcohol abuse F10.10
[2021-08-11] MEDS: pantoprazole DR 40 mg Tablet PO (18:06)
[2021-08-11 20:30] VITALS: BP 131/82; PULSE 79; RESP 18; TEMP 37; O2SAT 98
[2021-08-11] MEDS: apixaban 5 mg Tablet PO (21:35)
[2021-08-12] MEDS: ketorolac 30 mg/mL INJ 15 MG IVP ×4 (00:46→19:39)
[2021-08-12 00:49] VITALS: BP 143/87; PULSE 85; RESP 16; TEMP 37; O2SAT 97
[2021-08-12 02:46] LABS: Folate Level 4.2 ng/mL (4.8-37.3); Vitamin B12 150 pg/mL (232-1245)
[2021-08-12 05:35] VITALS: BP 144/82; PULSE 76; RESP 18; TEMP 36.7; O2SAT 98
[2021-08-12 07:26] VITALS: BP 151/85; PULSE 71; RESP 16; TEMP 36.7; O2SAT 98
[2021-08-12] MEDS: apixaban 5 mg Tablet PO ×2 (08:13→21:14)
[2021-08-12] MEDS: aspirin 81 mg EC Tablet PO (08:13)
[2021-08-12] MEDS: pantoprazole DR 40 mg Tablet PO ×2 (08:13→17:24)
[2021-08-12 11:14] VITALS: BP 136/81; PULSE 79; RESP 18; TEMP 36.9; O2SAT 97
[2021-08-12] MEDS: sodium chloride 0.9% 1,000 ML 100 ML IV (12:57)
[2021-08-12] MEDS: folic acid 1 mg Tablet PO ×2 (12:58→17:24)
[2021-08-12] MEDS: thiamine 100 mg Tablet PO (12:58)
[2021-08-12 15:27] VITALS: BP 134/79; PULSE 83; RESP 18; TEMP 36.7; O2SAT 94
--- NOTE | 2021-08-12 17:04 | P.PN_ITS ---
Subjective Subjective: Interval history: Patient feels better. Has been anxious to go home. Understands that we are looking at safe discharge plans Adamant about returning home however. Appetite ok Medications: Reviewed: Yes Vitals/I&O/Wt Last Vital Signs Temp 98.0 F 08/12/21 15:27 Pulse 83 08/12/21 15:27 Resp 18 08/12/21 15:27 BP 134/79 08/12/21 15:27 Pulse Ox 94 08/12/21 15:27 08/12/21 08/12/21 08/12/21 06:59 14:59 22:59 Intake Total 120 / 3160 1720 / 1720 Output Total 450 / 450 600 / 600 Balance -330 / 2710 1120 / 1120 Weight last 48 hrs Weight 73.028 kg Physical Exam Narrative: EXAM NARRATIVE: Chronically ill appearing, oriented HENMT: COMMON NORMALS: normocephalic and atraumatic HEAD & SCALP: normocephalic and atraumatic Eye: COMMON NORMALS: Equal, round and reactive pupils present, conjunctivae normal and no scleral icterus CONJUNCTIVA: Yes conjunctivae normal PUPIL: Yes Equal, round and reactive pupils present Neck/C-Spine: COMMON NORMALS: full ROM, supple and no JVD Chest: COMMONS NORMALS: normal inspection of the chest Resp: COMMON NORMALS: normal respiratory effort and clear to auscultation bilaterally AUSCULTATION: clear to auscultation bilaterally Cardio: COMMON NORMALS: no JVD, regular rate, regular rhythm, S1 normal heart sound present, S2 normal heart sound present and No murmurs present (Cardio) RATE: regular rate RHYTHM: regular rhythm HEART SOUNDS: S1 normal heart sound present and S2 normal heart sound present GI: COMMON NORMALS: Soft to palpation; negative for No hepatosplenomegaly present PALPATION: Yes Soft to palpation, No Tenderness to palpation present (GI), No Guarding due to palpation present (GI) and No No hepatosplenomegaly present : COMMON NORMALS: Yes no CVA tenderness BLADDER/KIDNEY EXAM: Yes no CVA tenderness Back/Pelvis: COMMON NORMALS: no CVA tenderness Extremity: COMMON NORMALS: no joint enlargement, no calf tenderness and no pedal edema Neuro: SPEECH: abnormal speech and expressive aphasia GAIT: Yes Ataxic gait present Psych: ACTIVITY/MOTOR BEHAVIOR: Yes appropriate eye contact THOUGHT CONTENT: Yes Normal thought content present Skin: COMMON NORMALS: no rashes or lesions noted, no wounds and no jaundice GENERAL SKIN EXAM: no rashes or lesions noted Data : 08/11/21 05:02 08/11/21 05:02 Micro: Microbiology 08/10/21 20:10 Urine Culture - Preliminary Urine,Clean Catch Gram Negative Rods A&P Assessment and plan (1) Cerebrovascular accident: Appreciate CT and CTA head and neck results noted MRI brain no acute abnormality Continue with aspirin, statin. Restarted on Eliquis at home dose 5 mg twice daily. PT/OT evaluation. Advance diet as per swallow evaluation. Continue on telemetry. Status: Acute (2) On continuous oral anticoagulation: Status: Acute (3) Hx of deep venous thrombosis: Repeat lower limb Dopplers reveal left peroneal DVT- discussed- on eliquis, continue' Remains on room air. Status: Acute (4) Transaminitis: Secondary to alcohol abuse. Currently at baseline. Status: Acute (5) HTN (hypertension): Status: Acute Qualifiers: Hypertension type: essential hypertension Qualified Code(s): I10 - Essential (primary) hypertension (6) Alcohol abuse: Level negative on admission. No current signs of alcohol withdrawal. Status: Acute Additional A&P Information Full code. Eliquis for her DVT prophylaxis. Famotidine for PUD prophylaxis. Diet as per swallow evaluation. Attestations Medical Necessity Statement*: Patient requires ongoing hospitalization for dysarthria, weakness and gait disturbance and speech, PT and OT evaluation Coding Level of Care Code Acute Distribution Systems Serviceperson for [facility] Fwd 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 Diagnoses Cerebrovascular accident I63.9 On continuous oral anticoagulation Z79.01 Hx of deep venous thrombosis Z86.718 Transaminitis R74.01 HTN (hypertension) I10 Hypertension type: essential hypertension Alcohol abuse F10.10
[2021-08-12] MEDS: ondansetron 2 mg/ML SDV 2 mL 4 MG IVP (19:39)
[2021-08-12 20:10] VITALS: BP 147/89; PULSE 80; RESP 22; TEMP 37.2; O2SAT 100
[2021-08-12] MEDS: atorvastatin 40 mg Tablet PO (21:14)
[2021-08-13 00:26] VITALS: BP 135/86; PULSE 102; RESP 21; TEMP 38.3; O2SAT 95
[2021-08-13] MEDS: ketorolac 30 mg/mL INJ 15 MG IVP ×3 (00:58→14:06)
[2021-08-13 04:04] VITALS: BP 113/76; PULSE 90; RESP 18; TEMP 37.2; O2SAT 94
[2021-08-13 07:57] VITALS: BP 129/86; PULSE 87; RESP 18; TEMP 37.2; O2SAT 95
[2021-08-13] MEDS: pantoprazole DR 40 mg Tablet PO (08:55)
[2021-08-13] MEDS: apixaban 5 mg Tablet PO (08:55)
[2021-08-13] MEDS: aspirin 81 mg EC Tablet PO (08:55)
[2021-08-13] MEDS: folic acid 1 mg Tablet PO (08:55)
[2021-08-13] MEDS: thiamine 100 mg Tablet PO (08:55)
[2021-08-13] MEDS: cyanocobalamin 1,000 mcg Tablet 500 MCG PO (10:40)
[2021-08-13 10:58] VITALS: BP 123/85; PULSE 83; RESP 16; TEMP 36.7; O2SAT 97
--- NOTE | 2021-08-13 14:25 | P.DS_ITS ---
Discharge Providers Date of Admission: 08/10/21 18:30 Date of Discharge: August 13, 2021 Attending Provider at Admission: Kevin Ames MD Attending Provider at Discharge: Vanesa Munoz MD Primary Care Provider: Shaq Wallace MD Diagnoses at Discharge Discharge Diagnosis (1) Cerebrovascular accident: Status: Acute Permanent problem details: MRI negative for acute process (2) On continuous oral anticoagulation: Status: Acute (3) Hx of deep venous thrombosis: Status: Acute Permanent problem details: resume eliquis (4) Transaminitis: Status: Acute (5) HTN (hypertension): Status: Acute Permanent problem details: stable Qualifiers: Hypertension type: essential hypertension Qualified Code(s): I10 - Essential (primary) hypertension (6) Alcohol abuse: Status: Acute Reason for Visit Reason for Visit: STROKE LIKE SYMPTOMS Hospital Course Hospital Course Patient is 46 year old female with h/o DVT and bilateral PE, CHF, alcohol abuse, COPD who presented with new onset left sided weakness and facial droop. Patient not a candidate for TPA as she is on eliquis for h/o PE. Patient underwent CVA workup including CT head, CTA head and neck and MRI brain which were negative for acute abnormality. Patient has not been compliant with eliquis- discussed importance of compliance. Patient evaluated by PT/OT/speech. Patient declines NH or HH. She is stable for D/C home Physical Exam Narrative: EXAM NARRATIVE: chronically ill appearing Const: COMMON NORMALS: patient oriented x3 HENMT: COMMON NORMALS: normocephalic, atraumatic and hearing grossly normal bilaterally HEAD & SCALP: normocephalic and atraumatic Eye: COMMON NORMALS: Equal, round and reactive pupils present and no scleral icterus PUPIL: Yes Equal, round and reactive pupils present Neck/C-Spine: COMMON NORMALS: full ROM, supple and no JVD Chest: COMMONS NORMALS: normal inspection of the chest Resp: COMMON NORMALS: normal respiratory effort and clear to auscultation bilaterally AUSCULTATION: clear to auscultation bilaterally Cardio: COMMON NORMALS: no JVD, regular rate, regular rhythm and No murmurs present (Cardio) RATE: regular rate RHYTHM: regular rhythm GI: COMMON NORMALS: Normal to inspection, nondistended, normoactive bowel sounds present and Soft to palpation PALPATION: Yes Soft to palpation and No Tenderness to palpation present (GI) : COMMON NORMALS: Yes no CVA tenderness BLADDER/KIDNEY EXAM: Yes no CVA tenderness Back/Pelvis: COMMON NORMALS: no CVA tenderness and no thoracic nor lumbar tenderness Extremity: OTHER: no pedal edema Neuro: COMMON NORMALS: patient oriented x3 and moves all extremities Psych: COMMON NORMALS: mental status grossly normal Skin: COMMON NORMALS: no rashes or lesions noted, no wounds and turgor normal GENERAL SKIN EXAM: no rashes or lesions noted and turgor normal Discharge Data Data Completed and Pending: Completed Studies During Hospitalization Category Date Time Status CT angio headneck * 47981/88895 Stat Cat Scan 08/10/21 18:[address] head wo con* 7 0450 Urgent Cat Scan 08/10/21 Completed MR head wo con* 7 0551 Routine MRI 08/11/21 10:42 [place] [id number] Routin e Ultrasound 08/11/21 07:17 Completed Vitals: Last Vital Signs Temp 98.1 F 08/13/21 10:58 Pulse 83 08/13/21 10:58 Resp 16 08/13/21 10:58 BP 123/85 08/13/21 10:58 Pulse Ox 97 08/13/21 10:58 Discharge Plan Discharge Patient Disposition: Home Condition: Stable Prescriptions: New atorvastatin 40 mg Tablet 40 mg PO BEDTIME Qty: 30 RF: 0 Vitamin B-12 1,000 mcg Tablet 500 mcg PO DAILY Qty: 90 RF: 0 aspirin 81 mg Tablet,Delayed Release (Dr/Ec) 81 mg PO DAILY Qty: 30 RF: 0 folic acid 1 mg Tablet 1 mg PO BID 90 Days Qty: 180 RF: 0 Vitamin B-1 (mononitrate) 100 mg Tablet 100 mg PO DAILY 90 Days Qty: 90 RF: 0 Eliquis 5 mg Tablet 5 mg PO BID@0900,2100 Qty: 60 RF: 0 Continued fexofenadine 180 mg tablet 180 mg PO Q24H RF: 0 hydrochlorothiazide 25 mg tablet 25 mg PO QAM Qty: 30 RF: 1 ondansetron HCl [Zofran] 4 mg tablet 4 mg PO Q8H PRN (Reason: nausea and vomiting) Qty: 20 RF: 0 multivitamin with folic acid [Thera] 400 mcg Tablet 1 tab PO DAILY Qty: 30 RF: 0 Cold & Head Congestion Severe 2 tab PO TID PRN (Reason: Congestion) RF: 0 Eliquis 5 mg tablet 5 mg PO BID RF: 0 Discontinued benzonatate 200 mg capsule 200 mg PO BID PRN (Reason: cough) Qty: 30 RF: 1 celecoxib 200 mg capsule 200 mg PO BID Qty: 60 RF: 2 Discharge Orders: Discharge Order (Routine); Ordered 08/13/21 Ordered By: Vanesa Munoz Referrals: Shaq Wallace MD [Primary Care Provider] - 08/27/21 10:00 am Discharge Diet: Soft Mechanical Discharge Activity: Resume usual activity, Use walker/crutches as instructed and As per PT/OT instructions Patient Instructions: Opioid Safety Discharge Attestations Time Spent in Discharge Care*: greater than 30 min Status at Discharge: Cognitive status at discharge: cognitively intact , Behavioral status at discharge: cooperative , Quality Metrics Clinical Quality Measures During this hospital stay, did patient experience: None Coding Level of Care Code Acute Chg FW DC note Diagnoses Cerebrovascular accident I63.9 On continuous oral anticoagulation Z79.01 Hx of deep venous thrombosis Z86.718 Transaminitis R74.01 HTN (hypertension) I10 Hypertension type: essential hypertension Alcohol abuse F10.10
[2021-08-13 16:39] VITALS: BP 123/85; PULSE 83; RESP 16; TEMP 36.7; O2SAT 97
== END 2021-08-13 16:40 | disposition home or self-care (01) | DRG 65 ==
LOC: ER 18:30 → MEDSURG 19:40
PROVIDERS: Student in an Organized Health Care Education/Training Program; Admitting Provider Student in an Organized Health Care Education/Training Program; Emergency Provider Family Medicine; PCP Family Medicine Adult Medicine; Visit Provider Internal Medicine
DX: I63.9 Cerebral infarction, unspecified (principal); G81.94 Hemiplegia, unspecified affecting left nondominant side; I50.32 Chronic diastolic (congestive) heart failure; I82.452 Acute embolism and thrombosis of left peroneal vein; R47.01 Aphasia; R29.810 Facial weakness; R29.715 NIHSS score 15; Z86.718 Personal history of other venous thrombosis and embolism; F10.10 Alcohol abuse, uncomplicated; M54.9 Dorsalgia, unspecified; M79.7 Fibromyalgia; K21.9 Gastro-esophageal reflux disease without esophagitis; E03.9 Hypothyroidism, unspecified; I11.0 Hypertensive heart disease with heart failure; Z86.711 Personal history of pulmonary embolism; F17.210 Nicotine dependence, cigarettes, uncomplicated; Z87.440 Personal history of urinary (tract) infections; M48.02 Spinal stenosis, cervical region; M26.629 Arthralgia of temporomandibular joint, unspecified side; D51.3 Other dietary vitamin B12 deficiency anemia; E55.9 Vitamin D deficiency, unspecified; J44.9 Chronic obstructive pulmonary disease, unspecified; Z79.01 Long term (current) use of anticoagulants
CPT/HCPCS: 12345; 36415; 70450; 70496; 70498; 70551; 80048; 80053; 80061; 80306; 80307; 81001; 82607; 82746; 83036; 85025; 85610; 85730; 87077; 87086; 87186; 92507; 92523; 92526; 92610; 93005; 93970; 97110; 97116; 97161; 97165; 97530; 97535; 99285; J1885; J2405; J7030; Q9967

== ENCOUNTER → 2021-08-22 14:20 | Outpatient (BNVA) | payer BC, MEDICAID, SELFPAY | PROVIDERS: PCP Family Medicine Adult Medicine; Visit Provider Family Medicine | DX: Z20.822 Contact with and (suspected) exposure to COVID-19 (principal) | CPT/HCPCS: 87400; 87635 ==

== ENCOUNTER 2021-08-29 01:31 | Emergency (ER) | payer BC, MEDICAID, SELFPAY ==
[2021-08-29 01:50] VITALS: BP 125/86; PULSE 95; RESP 18; TEMP 36.6; O2SAT 99; BMI 21.2
--- NOTE | 2021-08-29 03:00 | XRR_ITS ---
PROCEDURE INFORMATION: Exam: XR Right Foot Exam date and time: 08/29/2021 3:00 AM Age: 46 years old Clinical indication: Injury or trauma; Fall; Laceration; Foot; Right; Foreign body involvement not specified; Additional info: Stepped on glass, laceration TECHNIQUE: Imaging protocol: XR Right foot. Views: 3 or more views. COMPARISON: No relevant prior studies available. FINDINGS: Bones/joints: Unusual 30 x 2 mm radiopaque shadow over the plantar soft tissues of the hindfoot at the level of the anterior 3rd of the calcaneus seen only on the lateral view. Radiopaque foreign body versus overlying bandage material. Correlate with location of penetrating trauma. Soft tissues: See Bones/joints finding. XR/XR foot RT min 3V* [id number] IMPRESSION: Unusual 30 x 2 mm radiopaque shadow over the plantar soft tissues of the hindfoot at the level of the anterior 3rd of the calcaneus seen only on the lateral view. Radiopaque foreign body versus overlying bandage material. Correlate with location of penetrating trauma.
[2021-08-29] MEDS: tetanus-dipt-pertussis 0.5 mL SDV IM (04:27)
[2021-08-29] MEDS: ondansetron 4 MG Tablet PO (04:44)
[2021-08-29] MEDS: doxycycline 100 mg Tablet PO (04:44)
[2021-08-29] MEDS: lidocaine 1% INJ 20 mL INJECTION (04:44)
--- NOTE | 2021-08-29 05:12 | XRR_ITS ---
PROCEDURE INFORMATION: Exam: XR Right Foot Exam date and time: 08/29/2021 5:12 AM Age: 46 years old Clinical indication: Pain; Foot; Right; Additional info: Post repair TECHNIQUE: Imaging protocol: XR Right foot. Views: 3 or more views. Total images: 3 COMPARISON: CR (LOW EXM, ) 08/29/2021 3:41 AM FINDINGS: Bones/joints: No acute fracture nor subluxation. No osseous erosion nor periosteal reaction. Soft tissues: Previously noted curvilinear density projecting in the plantar soft tissues of the hindfoot is no longer seen. Minimal residual soft tissue density is felt to represent skin entry site. No residual radiopaque foreign body detected. XR/XR foot RT min 3V* [id number] IMPRESSION: 1. Previously noted curvilinear density projecting in the plantar soft tissues of the hindfoot is no longer seen. Minimal residual soft tissue density is felt to represent skin entry site. No residual radiopaque foreign body detected. 2. No acute osseous pathology.
[2021-08-29 06:49] VITALS: PULSE 87; RESP 18; O2SAT 98
--- NOTE | 2021-08-29 08:06 | W.ED.EXTPRO ---
HPI - Extremity Problem General: Chief complaint: Extremity Injury, Lower Stated complaint: R foot lac Time Seen by Provider: 08/29/21 02:39 Source: patient History of Present Illness: 46-year-old female who stepped on a glass this morning shattering it. She lacerated her right instep of her foot through a sock. Bleeding is controlled. She is having some pain. No numbness or tingling. MD Complaint: extremity pain Onset (ago): hour(s) Pain Consistency: constant Location: right and other Quality: stabbing Relieving factors: nothing Exacerbating factors: weight bearing Associated symptoms: Deny chest pain, fever(s), rash or short of breath Review of Systems Const: Denies: fever(s) Card: Denies: chest pain Resp: Denies: dyspnea GI: Reports: vomiting (Due to pain) Skin/Breast: Denies: rash Psych: Reports: anxiety [facility] ED PFSH: Medical History Allergic rhinitis Back pain Bilateral lower extremity edema Chronic coughing Compression fracture of thoracic vertebra COVID-19 Positive test on 08/22/2021. Dyshidrotic hand dermatitis Fibromyalgia Folic acid deficiency GERD (gastroesophageal reflux disease) Gram-negative bacteremia H/O History of hypothyroidism HTN (hypertension) stable Hx of deep venous thrombosis resume eliquis Hx of pulmonary embolus Macrocytosis Migraine without aura, not intractable, without status migrainosus Nasal vestibulitis Nicotine abuse PSVT (paroxysmal supraventricular tachycardia) Pyelonephritis of right kidney Recurrent UTI Renal infarct Spinal stenosis, cervical region TMJ arthralgia Transaminitis Vitamin B12 deficiency anemia Vitamin D deficiency Surgical History H/O colonoscopy 2018 - normal History of hysterectomy with bilateral oophorectomy History of radiofrequency ablation (RFA) procedure for cardiac arrhythmia Hx of appendectomy S/P carpal tunnel release S/P tubal ligation Family History Mother Atrial fibrillation Hypertension Social History Alcohol intake: current Alcohol intake frequency: 0-2 Drinks per Day Lives independently: Yes Household members: spouse and family Marital status: service: No Current occupational status: unemployed History of recent travel: No Current gender identity: Female Female Reproductive History: Date of last menstrual period: 07/31/10 Physical Exam Const: COMMON NORMALS: patient oriented x3 and alert GENERAL APPEARANCE: cooperative; not comfortable HENMT: COMMON NORMALS: normocephalic HEAD & SCALP: normocephalic FACE & SINUS: normal facial exam Eye: COMMON NORMALS: Equal, round and reactive pupils present and EOMs intact bilaterally PUPIL: Yes Equal, round and reactive pupils present Chest: COMMONS NORMALS: normal inspection of the chest Resp: COMMON NORMALS: normal respiratory effort, No retractions, No use of accessory muscles and clear to auscultation bilaterally AUSCULTATION: clear to auscultation bilaterally Cardio: COMMON NORMALS: regular rate and regular rhythm RATE: regular rate RHYTHM: regular rhythm GI: COMMON NORMALS: Normal to inspection, nondistended, normoactive bowel sounds present Extremity: NARRATIVE EXTREMITY EXAM: Exam of the right foot reveals a 6 cm laceration over the medial arch. It appears deep. Bleeding is controlled. Inspection of the wound reveals likely posterior tibialis tendon laceration. Neuro: COMMON NORMALS: patient oriented x3 SENSORIUM/ORIENTATION: Yes alert Course Consultations: Consultation #1: Time: 08:23 Vital Signs: Vital signs: Vital Signs Temperature 97.8 F 08/29/21 01:50 Pulse Rate 87 08/29/21 06:49 Respiratory Rate 18 08/29/21 06:49 Blood Pressure 125/86 08/29/21 01:50 Pulse Oximetry 98 08/29/21 06:49 MDM - Extremity (Nontraumatic) Medical Decision Making Laceration is repaired. Noticed inside the wound is tendon, likely posterior tibialis tendon that is cut. Bleeding is controlled. She tolerated repair well. Initial x-ray showed a potential foreign body, but this was overlying bandage. Repeat x-ray after repair with bandage off shows resolution. Have alerted foot surgery, and will make her an appointment as an outpatient. Crutches for weightbearing until then. Lab Data Radiology Impressions Foot X-Ray 08/29/21 05:12 IMPRESSION: 1. Previously noted curvilinear density projecting in the plantar soft tissues of the hindfoot is no longer seen. Minimal residual soft tissue density is felt to represent skin entry site. No residual radiopaque foreign body detected. 2. No acute osseous pathology. Discharge Plan Discharge Patient Disposition: Home Clinical Impression: Laceration of foot, Posterior tibial tendon tear, traumatic Condition: Stable Prescriptions: New doxycycline hyclate 100 mg tablet 100 mg PO BID 7 Days Qty: 14 0RF ketorolac 10 mg tablet 10 mg PO TID PRN (Reason: pain) Qty: 10 0RF No Action fexofenadine 180 mg tablet 180 mg PO Q24H 0RF Label Comments: pt gets this from the [employer]. Insurance will not cover. prednisone 20 mg tablet 20 mg PO DAILY 5 Days Qty: 5 0RF albuterol sulfate 90 mcg/actuation HFA aerosol inhaler 1 inh inhalation QID PRN (Reason: shortness of breath or wheezing) Qty: 8.5 0RF benzonatate [Tessalon Perles] 100 mg capsule 100 mg PO BID PRN (Reason: cough) 7 Days Qty: 14 0RF hydrochlorothiazide 25 mg tablet 25 mg PO QAM Qty: 30 1RF Eliquis 5 mg tablet 5 mg PO BID 30 Days Qty: 60 5RF aspirin 81 mg tablet,delayed release (DR/EC) 81 mg PO DAILY Qty: 90 3RF vitamin B complex [B Complex-Vitamin B12] Tablet 1 tab PO DAILY Qty: 90 1RF doxycycline hyclate 100 mg capsule 100 mg PO BID Qty: 30 0RF ondansetron HCl [Zofran] 4 mg tablet 4 mg PO Q8H PRN (Reason: nausea and vomiting) Qty: 20 0RF multivitamin with folic acid [Thera] 400 mcg Tablet 1 tab PO DAILY Qty: 30 0RF Cold & Head Congestion Severe 2 tab PO TID PRN (Reason: Congestion) 0RF atorvastatin 40 mg Tablet 40 mg PO BEDTIME Qty: 30 0RF Discharge Orders: Discharge ED (Routine); Ordered 08/29/21 Ordered By: Romario Nunes Referrals: Shaq Wallace MD [Primary Care Provider] - Gee Beltrán DPM [Physician] - 4-7 days Discharge Diet: Usual diet Discharge Activity: Limit activity as instructed Patient Instructions: Laceration (ED) Activity Restrictions/Additional Instructions: Return for worsening pain despite treatment, fever greater than 100, drainage from the laceration site, streaking redness or swelling. A case management referral has been placed for you to see foot surgery this coming week. You should hear from them by Monday. Crutches for weightbearing. Do not bear weight until cleared by foot surgery. Keep wound clean and dry for 48 hours, then may shower. Do not soak. Sutures should be removed in 10 days or so. Coding Level of Care Code ED Fuller Brush Man for Apryl Fwd Exam Detailed
--- NOTE | 2021-08-30 09:36 | DCPLANNER ---
Addendum entered by Isabell Lamar 09/03/21 13:19: Patient had a follow up appointment scheduled for 08.30.21 with ortho - patient did attend appointment. Original Note: manager fund had message to schedule a follow up appointment for patient [facility] ortho. manager fund called the ortho clinic, spoke with Veronica, gave clinic patients information. manager fund was told that patients information would be printed and reviewed. Clinic will call patient with appointment information.
--- NOTE | 2021-09-04 18:49 | ED_ITS ---
HPI - Extremity Problem General: Chief complaint: Extremity Injury, Lower Stated complaint: R foot lac Time Seen by Provider: 08/29/21 02:39 Source: patient History of Present Illness: This should serve as an addendum to the ER note for the procedure performed, which was a simple right foot laceration repair. Pain Consistency: constant Location: right and other Quality: stabbing Relieving factors: nothing Exacerbating factors: weight bearing PFSH ED PFSH: Medical History Allergic rhinitis Back pain Bilateral lower extremity edema Chronic coughing Compression fracture of thoracic vertebra COVID-19 Positive test on 08/22/2021. Dyshidrotic hand dermatitis Fibromyalgia Folic acid deficiency GERD (gastroesophageal reflux disease) Gram-negative bacteremia H/O History of hypothyroidism HTN (hypertension) stable Hx of deep venous thrombosis resume eliquis Hx of pulmonary embolus Macrocytosis Migraine without aura, not intractable, without status migrainosus Nasal vestibulitis Nicotine abuse PSVT (paroxysmal supraventricular tachycardia) Pyelonephritis of right kidney Recurrent UTI Renal infarct Spinal stenosis, cervical region TMJ arthralgia Transaminitis Vitamin B12 deficiency anemia Vitamin D deficiency Surgical History H/O colonoscopy 2018 - normal History of hysterectomy with bilateral oophorectomy History of radiofrequency ablation (RFA) procedure for cardiac arrhythmia Hx of appendectomy S/P carpal tunnel release S/P tubal ligation Family History Mother Atrial fibrillation Hypertension Social History Smoking and tobacco status: current every day smoker cigarettes Packs smoked per day: 0.5 Years cigarettes smoked: 30 Alcohol intake: current Alcohol intake frequency: 0-2 Drinks per Day Lives independently: Yes Household members: spouse and family Marital status: service: No Current occupational status: unemployed History of recent travel: No Current gender identity: Female Female Reproductive History: Date of last menstrual period: 07/31/10 Procedures Laceration Laceration 1: Site: lower extremity (r foot) Size (cm): 5 Local Anesthetic: lidocaine 1% Amount of anesthesia used (mL): 6 Skin layer closed with: nylon (4-0) Number of sutures: 7 Technique: simple, interrupted Course Vital Signs: Vital signs: Vital Signs Temperature 97.8 F 08/29/21 01:50 Pulse Rate 87 08/29/21 06:49 Respiratory Rate 18 08/29/21 06:49 Blood Pressure 125/86 08/29/21 01:50 Pulse Oximetry 98 08/29/21 06:49 MDM - Extremity (Nontraumatic) Medical Decision Making Right foot laceration repair Lab Data Radiology Impressions Foot X-Ray 08/29/21 05:12 IMPRESSION: 1. Previously noted curvilinear density projecting in the plantar soft tissues of the hindfoot is no longer seen. Minimal residual soft tissue density is felt to represent skin entry site. No residual radiopaque foreign body detected. 2. No acute osseous pathology. Discharge Plan Discharge Patient Disposition: Home Clinical Impression: Laceration of foot, Posterior tibial tendon tear, traumatic Condition: Stable Prescriptions: New ketorolac 10 mg tablet 10 mg PO TID PRN (Reason: pain) Qty: 10 0RF No Action fexofenadine 180 mg tablet 180 mg PO Q24H 0RF Label Comments: pt gets this from the [employer]. Insurance will not cover. albuterol sulfate 90 mcg/actuation HFA aerosol inhaler 1 inh inhalation QID PRN (Reason: shortness of breath or wheezing) Qty: 8.5 0RF benzonatate [Tessalon Perles] 100 mg capsule 100 mg PO BID PRN (Reason: cough) 7 Days Qty: 14 0RF Eliquis 5 mg tablet 5 mg PO BID 30 Days Qty: 60 5RF aspirin 81 mg tablet,delayed release (DR/EC) 81 mg PO DAILY Qty: 90 3RF doxycycline hyclate 100 mg capsule 100 mg PO BID Qty: 30 0RF ondansetron HCl [Zofran] 4 mg tablet 4 mg PO Q8H PRN (Reason: nausea and vomiting) Qty: 20 0RF Cold & Head Congestion Severe 2 tab PO TID PRN (Reason: Congestion) 0RF ketorolac 10 mg tablet 10 mg PO TID PRN (Reason: pain) Qty: 10 0RF Discharge Orders: Discharge ED (Routine); Ordered 08/29/21 Ordered By: Romario Nunes Referrals: Shaq Wallace MD [Primary Care Provider] - Beltrán,Gee, DPM [Physician] - 4-7 days Discharge Diet: Usual diet Discharge Activity: Limit activity as instructed Patient Instructions: Laceration (ED) Activity Restrictions/Additional Instructions: Return for worsening pain despite treatment, fever greater than 100, drainage from the laceration site, streaking redness or swelling. A case management referral has been placed for you to see foot surgery this coming week. You should hear from them by Monday. Crutches for weightbearing. Do not bear weight until cleared by foot surgery. Keep wound clean and dry for 48 hours, then may shower. Do not soak. Sutures should be removed in 10 days or so. Coding Level of Care Code ED Senior Sales Compensation Analyst for Apryl Salas
== END 2021-08-29 06:51 | disposition home or self-care (01) ==
PROVIDERS: Emergency Provider Emergency Medicine; PCP Family Medicine Adult Medicine
DX: S91.311A Laceration without foreign body, right foot, initial encounter (principal); S96.821A Laceration of other specified muscles and tendons at ankle and foot level, right foot, initial encounter; Z79.01 Long term (current) use of anticoagulants; Z79.82 Long term (current) use of aspirin; I10 Essential (primary) hypertension; W25.XXXA Contact with sharp glass, initial encounter; Z23 Encounter for immunization
CPT/HCPCS: 12002; 73630; 90471; 90715; 99283; Q0162

== ENCOUNTER → 2021-08-30 11:22 | Outpatient (BNVA) | payer BC, MEDICAID, SELFPAY | PROVIDERS: PCP Family Medicine Adult Medicine; Referring Provider Emergency Medicine; Visit Provider Podiatrist Foot & Ankle Surgery | DX: Z01.818 Encounter for other preprocedural examination (principal); Z20.822 Contact with and (suspected) exposure to COVID-19 | CPT/HCPCS: 87635 ==

== ENCOUNTER 2021-09-01 05:45 | Day surgery (SDC) | payer BC, MEDICAID, SELFPAY ==
[2021-08-31 16:21] VITALS: BMI 22.0
[2021-09-01 06:09] VITALS: BP 142/96; PULSE 86; RESP 18; TEMP 36.5; O2SAT 100
--- NOTE | 2021-09-01 06:27 | W.PM.OPSUD ---
Surgery/Procedure H&P Update DATE OF PROCEDURE: September 01, 2021 DATE H&P PERFORMED: 08/30/21 CHANGES TO PREVIOUS DOCUMENTATION: None PREOP DIAGNOSIS: Laceration right foot PLANNED PROCEDURE: Operation Date: 09/01/21 07:00 Proposed Procedures p Delayed Wound Closure(Right) - Gee Beltrán DPM
--- NOTE | 2021-09-01 06:42 | PM.OP ---
Operative Report Date of procedure: September 01, 2021 Pre-op diagnosis: Laceration right foot with primary closure Post-op diagnosis: Laceration right foot, extensor digitorum longus laceration Post-op findings: Same Procedure done: CPT 96226 Implants: [place]imore #2 Force Fiber, 3-0 Vicryl, 4-0 Vicryl, 4-0 nylon Specimens removed/disposition: None Pathology: None Surgeon: Gee Beltrán D.P.M. [employer] Crewmember: Camilla Estimated blood loss: 5 18 IV fluids: 0 Urine output: 0 Complications: None Findings: 5.5 cm laceration down to deep fascia and full laceration/severing of the extensor digitorum longus. All right foot. Brief History: Patient is stained a laceration to her right instep stepped on a piece of glass presented to the emergency department where a primary repair was performed with concern for possible tendon involvement, skin was loosely reapproximated. Patient followed up in podiatry clinic with recommendation of primary delayed closure following debridement. Risks include pain, bleeding, numbness, infection, need for further surgical intervention. Procedure: Under mild sedation the patient was brought to the operating room and remained on the gurney in supine position. A timeout was performed. Anesthesia was then administered by the anesthesia service. Local anesthesia injected by myself consisting of 20 cc of one-to-one mixture of 0.5% Marcaine plain and Exparel infiltrated subcutaneously per inspector assemblies and installations recommendation at the perioperative site. Well-padded pneumatic tourniquet applied to the right ankle. Right lower extremity was scrubbed, prepped and draped utilizing normal aseptic technique. Right foot was then elevated and the tourniquet inflated to 250 mmHg. Attention was directed to the right instep where a 5.5 cm laceration exposed to deep structures including fascia, extensor houses brevis muscle and was able to visualize the extensor digitorum longus muscle which was transected. Copious amounts of irrigation was performed followed by reapproximation of the extensor digitorum longus tendon utilizing #2 Force Fiber and 3-0 Vicryl. Integrity was tested intraoperatively noted to be excellent and well reapproximated. Further irrigation was performed, no foreign body debris or glass was appreciated. Subcutaneous tissue and deep fascia were reapproximated using 4-0 Vicryl and skin reapproximated utilizing 4-0 nylon in a layered fashion. Incision site was then dressed with Adaptic, sterile 4 x 4, Kerlix, Aquiles wrap and a cam boot was applied. Tourniquet was deflated and a prompt hyperemic response was noted to the distal digits of the right foot. Patient tolerated the procedure well and was transferred to the PACU with vital signs stable and vascular status intact. Following a period of postoperative monitoring she will be discharged home with a cam boot and crutches and to be nonweightbearing. She was given postoperative instructions and follow-up for her next appointment will be your first dressing change next Monday. Currently taking doxycycline will continue this postoperatively for 7 days. Toradol sent for analgesia. Also have a long-acting local block utilizing Exparel for postoperative pain management.
--- NOTE | 2021-09-01 06:55 | ANES.PREANE2 ---
Pre-Anesthetic Assessment Height/Weight: Height 1.73 m Weight 65.771 kg Temp Pulse Resp BP Pulse Ox 97.7 F 86 18 142/96 100 09/01/21 06:09 09/01/21 06:09 09/01/21 06:09 09/01/21 06:09 09/01/21 06:09 Preop Diagnosis: Laceration right foot Operation Date: 09/01/21 07:00 Proposed Procedures p Delayed Wound Closure(Right) - Gee Beltrán DPM Familial anesthetic complications: None Was Beta Chandler taken within 24 hours: N/A Was Clonidine taken within 24 hours: N/A Last intake: Intake Last Liquid Date 08/31/21 Last Liquid Time 23:30 Last Solid Date 08/31/21 Last Solid Time 23:00 Social Alcohol (1-2 mixed drinks a day) and Tobacco Exam alert, oriented x 3, clear to auscultation bilaterally and regular rate & rhythm Airway Cervical ROM: within normal limits Mallampati: Class I Dentition: other (no teeth) Pulmonary hx covid in july - feels back to baseline, lungs CTA CV/HEM Deep Vein Thrombosis (holding eliquis) and Hypertension PVST Anesthetic Plan ASA status: 3 Anesthesia: MAC Medications/Allergies Home Medications Medication Instructions Recorded Confirmed Last Taken Type Cold & Head Congestion Severe 2 tab PO TID PRN 05/04/21 09/01/21 05/03/21 History ondansetron HCl 4 mg tablet 4 mg PO Q8H PRN #20 tab 07/08/21 09/01/21 Unknown Rx (Zofran) fexofenadine 180 mg tablet 180 mg PO Q24H tab 07/27/21 09/01/21 08/31/21 History albuterol sulfate 90 mcg/actuation 1 inh INHALATION QID PRN #8.5 g 08/22/21 09/01/21 Unknown Rx aerosol inhaler benzonatate 100 mg capsule 100 mg PO BID PRN 7 Days #14 cap 08/22/21 09/01/21 08/28/21 Rx (Tessalon Perles) apixaban 5 mg tablet (Eliquis) 5 mg PO BID 30 Days #60 tab 08/26/21 08/31/21 08/24/21 Rx aspirin 81 mg tablet,delayed 81 mg PO DAILY #90 tab 08/26/21 09/01/21 Unknown Rx release doxycycline hyclate 100 mg capsule 100 mg PO BID #30 cap 08/26/21 09/01/21 08/31/21 23:45 Rx ketorolac 10 mg tablet 10 mg PO TID PRN #10 tab 08/29/21 09/01/21 08/31/21 23:45 Rx ketorolac 10 mg tablet 10 mg PO TID PRN #10 tab 09/01/21 Unknown Rx Allergies Allergy/AdvReac Type Severity Reaction Status Date / Time diphenhydramine Allergy Intermediate ALGY-Rash Verified 09/01/21 06:23 [From Benadryl] Sulfa (Sulfonamide Allergy Intermediate ALGY-Rash Verified 09/01/21 06:23 Antibiotics) levofloxacin Allergy Mild Stomach Verified 09/01/21 06:23 upset methocarbamol [From Robaxin] Allergy Mild ADR-Itching Verified 09/01/21 06:23 acetaminophen [From Percocet] Allergy ALGY-Swell Verified 09/01/21 06:23 Lip/Tongue/Throat amoxicillin [From Augmentin] Allergy swelling Verified 09/01/21 06:23 azithromycin [From Zithromax] Allergy ADR-Itching Verified 09/01/21 06:23 clavulanic acid Allergy swelling Verified 09/01/21 06:23 [From Augmentin] clindamycin [From Cleocin] Allergy ALGY-Rash Verified 09/01/21 06:23 codeine Allergy ADR-Itching Verified 09/01/21 06:23 cyclobenzaprine Allergy ADR-Swelling Verified 09/01/21 06:23 [From Flexeril] of the Eye Egg Derived Allergy ADR-Vomitin Verified 09/01/21 06:23 g hydrocodone Allergy ALGY-Swell Verified 09/01/21 06:23 Lip/Tongue/Throat hydroxyzine Allergy ALGY-Hives Verified 09/01/21 06:23 lactase [From Dairy Aid] Allergy ADR-Diarrhe Verified 09/01/21 06:23 a loratadine [From Claritin] Allergy Unknown Verified 09/01/21 06:23 oxycodone [From Percocet] Allergy ALGY-Swell Verified 09/01/21 06:23 Lip/Tongue/Throat tizanidine Allergy ADR-Itching Verified 09/01/21 06:23 tramadol Allergy ALGY-Rash Verified 09/01/21 06:23 [facility] Anesthesia Medical History Allergic rhinitis Back pain Bilateral lower extremity edema Chronic coughing Compression fracture of thoracic vertebra COVID-19 Positive test on 08/22/2021. Dyshidrotic hand dermatitis Fibromyalgia Folic acid deficiency GERD (gastroesophageal reflux disease) Gram-negative bacteremia H/O History of hypothyroidism HTN (hypertension) stable Hx of deep venous thrombosis resume eliquis Hx of pulmonary embolus Macrocytosis Migraine without aura, not intractable, without status migrainosus Nasal vestibulitis Nicotine abuse PSVT (paroxysmal supraventricular tachycardia) Pyelonephritis of right kidney Recurrent UTI Renal infarct Spinal stenosis, cervical region TMJ arthralgia Transaminitis Vitamin B12 deficiency anemia Vitamin D deficiency Surgical History H/O colonoscopy 2018 - normal History of hysterectomy with bilateral oophorectomy History of radiofrequency ablation (RFA) procedure for cardiac arrhythmia Hx of appendectomy S/P carpal tunnel release S/P tubal ligation Family History Mother Atrial fibrillation Hypertension Social History Smoking and tobacco status: current every day smoker cigarettes Packs smoked per day: 0.5 Years cigarettes smoked: 30 Alcohol intake: current Alcohol intake frequency: 0-2 Drinks per Day Lives independently: Yes Household members: spouse and family Marital status: service: No Current occupational status: unemployed History of recent travel: No Current gender identity: Female Female Reproductive History Date of last menstrual period: 07/31/10 Data Anesthesia Cardiac Studies: Echocardiogram 03/08/21 Echocardiogram Ultrasound 03/23/20
[2021-09-01] MEDS: sodium chloride 0.9% 1,000 ML 30 ML IV (06:58)
[2021-09-01] MEDS: vancomycin 1,000 MG in sodium chloride 0.9% 250 ML 250 MG IV (07:00)
[2021-09-01 07:45] VITALS: BP 109/77; PULSE 85; RESP 16; TEMP 36.1; O2SAT 99
[2021-09-01 07:50] VITALS: BP 107/86; PULSE 87; RESP 16; O2SAT 99
[2021-09-01 07:55] VITALS: BP 123/84; PULSE 83; RESP 16; TEMP 36.2; O2SAT 99
[2021-09-01 07:58] VITALS: BP 123/89; PULSE 84; RESP 18; TEMP 36.4; O2SAT 98
[2021-09-01 08:24] VITALS: BP 126/80; PULSE 80; RESP 18; O2SAT 99
[2021-09-01] MEDS: ketorolac 10 mg Tablet PO (09:05)
--- NOTE | 2021-09-01 13:00 | ANE.PACU2 ---
Inpatient post-anesthesia follow up: Airway intact: Yes Vital signs: Temperature 97.6 F Pulse Rate 80 Respiratory Rate 18 Blood Pressure 126/80 Pulse Oximetry 99 Oxygen Delivery Me thod Room Air Oxygen Flow Rate Fraction of Inspir ed Oxygen Hydration adequate: Yes Nausea and vomiting: Yes Pain level: 2 Mental status: Baseline
== END 2021-09-01 09:33 | disposition home or self-care (01) ==
PROVIDERS: PCP Family Medicine Adult Medicine; Visit Provider Podiatrist Foot & Ankle Surgery
PROC: (CPT 13160; principal; 2021-09-01 07:00)
DX: S96.121A Laceration of muscle and tendon of long extensor muscle of toe at ankle and foot level, right foot, initial encounter (principal); W25.XXXA Contact with sharp glass, initial encounter; Z79.82 Long term (current) use of aspirin; Z86.16 Personal history of COVID-19; M79.7 Fibromyalgia; I10 Essential (primary) hypertension; E03.9 Hypothyroidism, unspecified; Z86.718 Personal history of other venous thrombosis and embolism; Z79.01 Long term (current) use of anticoagulants; F17.210 Nicotine dependence, cigarettes, uncomplicated
CPT/HCPCS: 13160; C9290; J2704; J3010; J3370; J3490; J7030; J7050

== ENCOUNTER 2021-10-30 19:59 | Emergency (ER) | payer BC, MEDICAID, SELFPAY ==
[2021-10-30 20:13] VITALS: BP 108/77; PULSE 100; RESP 18; TEMP 37.1; O2SAT 99; BMI 21.2
[2021-10-30 20:35] VITALS: BP 111/81; PULSE 100; RESP 18; O2SAT 98
--- NOTE | 2021-10-30 20:38 | XRR_ITS ---
PROCEDURE INFORMATION: Exam: XR Left Shoulder Exam date and time: 10/30/2021 8:47 PM Age: 46 years old Clinical indication: Injury or trauma; Other: Moving heavy objects; Blunt trauma (contusions or hematomas); Shoulder; Left; Additional info: Pain, injury TECHNIQUE: Imaging protocol: XR Left shoulder. Views: 2 or more views. COMPARISON: CR (CHEST, ) 05/09/2021 3:31 PM FINDINGS: Bones/joints: Normal. Soft tissues: Normal. XR/XR shoulder LT min 2V* [id number] IMPRESSION: No acute findings.
--- NOTE | 2021-10-30 20:39 | ED_ITS ---
HPI - Extremity Problem General: Chief complaint: Extremity Injury, Upper Stated complaint: Injury Neck Rt Shoulder Time Seen by Provider: 10/30/21 20:38 History of Present Illness: 46-year-old female comes in with left shoulder pain. Patient reports that she has been moving. Patient does not believe she has fallen or injured herself. Patient reports pain has been worse for the last 3 days. Patient has had a previous injury to the shoulder several years ago. MD Complaint: extremity pain Onset (ago): day(s) Location: left and upper extremity Relieving factors: rest Exacerbating factors: range of motion Associated symptoms: Deny chest pain, fever(s) or rash Review of Systems General: Reports: 10 or more systems reviewed and unremarkable except in HPI and below Const: Denies: fever(s) Card: Denies: chest pain Resp: Denies: dyspnea GI: Denies: nausea or vomiting Musc: Reports: joint pain Skin/Breast: Denies: rash PFSH ED PFSH: Medical History Allergic rhinitis Back pain Bilateral lower extremity edema Chronic coughing Community acquired pneumonia Compression fracture of thoracic vertebra COVID-19 Positive test on 08/22/2021. Fibromyalgia Folic acid deficiency GERD (gastroesophageal reflux disease) History of hypothyroidism HTN (hypertension) stable Hx of deep venous thrombosis resume eliquis Hx of pulmonary embolus Migraine without aura, not intractable, without status migrainosus Nicotine abuse PSVT (paroxysmal supraventricular tachycardia) Pyelonephritis of right kidney Renal infarct Spinal stenosis, cervical region TMJ arthralgia Transaminitis Transaminitis Vitamin B12 deficiency anemia Vitamin D deficiency Wrist clicking Surgical History H/O colonoscopy 2018 - normal History of hysterectomy with bilateral oophorectomy History of radiofrequency ablation (RFA) procedure for cardiac arrhythmia Hx of appendectomy S/P carpal tunnel release S/P tubal ligation Family History Mother Atrial fibrillation Hypertension Social History Smoking and tobacco status: current every day smoker cigarettes Packs smoked per day: 0.5 Years cigarettes smoked: 30 Alcohol intake: current Alcohol intake frequency: 0-2 Drinks per Day Lives independently: Yes Household members: spouse and family Marital status: service: No Current occupational status: unemployed History of recent travel: No Current gender identity: Female Female Reproductive History: Date of last menstrual period: 07/31/10 Physical Exam Const: COMMON NORMALS: alert HENMT: COMMON NORMALS: atraumatic HEAD & SCALP: atraumatic Neck/C-Spine: COMMON NORMALS: full ROM Resp: COMMON NORMALS: normal respiratory effort and clear to auscultation bilaterally AUSCULTATION: clear to auscultation bilaterally Cardio: COMMON NORMALS: regular rate and regular rhythm RATE: regular rate RHYTHM: regular rhythm Back/Pelvis: THORACIC SPINE/UPPER BACK: Yes paraspinal muscle tenderness Thoracic paraspinal muscle tenderness: left Left thoracic paraspinal muscle tenderness: T1 and T2 Extremity: LEFT UPPER EXTREMITY: Yes shoulder joint (Increased pain with range of motion, tenderness on palpation of the trapezi) Left shoulder joint: Yes inspection, Yes palpation and Yes ROM Neuro: SENSORIUM/ORIENTATION: Yes alert Skin: COMMON NORMALS: no rashes or lesions noted GENERAL SKIN EXAM: no rashes or lesions noted Course Vital Signs: Vital signs: Vital Signs Temperature 98.7 F 10/30/21 20:13 Pulse Rate 100 10/30/21 20:35 Respiratory Rate 18 10/30/21 20:35 Blood Pressure 111/81 10/30/21 20:35 Pulse Oximetry 98 10/30/21 20:35 MDM - Extremity (Nontraumatic) Medical Decision Making Patient comes in for evaluation of pain to the left shoulder. On exam patient has tenderness to the trapezius muscle and the upper back paraspinous muscles. Patient has pain with range of motion of the shoulder. Distal pulses and sensation are intact. Vital signs are normal. Differential diagnosis includes tendinitis, shoulder strain, cervical radiculopathy. X-ray noted no deformity or dislocation. Reviewed exam with patient with recommendations for treatment and follow-up. Patient reported understanding of care plan with need for follow-up or return to the ER. Discharge Plan Discharge Patient Disposition: Home Clinical Impression: Acute pain of left shoulder Condition: Stable Prescriptions: Continued ketorolac 10 mg tablet 10 mg PO TID PRN (Reason: pain) Qty: 10 0RF No Action fexofenadine 180 mg tablet 180 mg PO Q24H 0RF Label Comments: [facility] Insurance will not cover. benzonatate 100 mg capsule 100 mg PO BID PRN (Reason: Chronic cough) 30 Days Qty: 30 1RF albuterol sulfate 90 mcg/actuation HFA aerosol inhaler 1 inh inhalation QID PRN (Reason: shortness of breath or wheezing) Qty: 8.5 0RF Eliquis 5 mg tablet 5 mg PO BID 30 Days Qty: 60 5RF aspirin 81 mg tablet,delayed release (DR/EC) 81 mg PO DAILY Qty: 90 3RF ondansetron HCl [Zofran] 4 mg tablet 4 mg PO Q8H PRN (Reason: nausea and vomiting) Qty: 20 0RF Cold & Head Congestion Severe 2 tab PO TID PRN (Reason: Congestion) 0RF ketorolac 10 mg tablet 10 mg PO TID PRN (Reason: pain) Qty: 10 0RF Discharge Orders: Discharge ED (Routine); Ordered 10/30/21 Ordered By: Galdino Sandoval Referrals: Shaq Wallace MD [Primary Care Provider] - Discharge Diet: Usual diet Discharge Activity: Increase activity as tolerated Patient Instructions: Musculoskeletal Pain (ED), Opioid Safety Activity Restrictions/Additional Instructions: Increase activity of the shoulder as tolerated. Gentle stretching and range of motion exercises. Use ice or heat to the area for further comfort. Use acetaminophen and ketorolac tablets to control pain. Drink plenty of water with medications. Continue with routine medications otherwise as prescribed. Follow-up with primary care for further instruction. Return to ER for new concerns. Coding Level of Care Code ED Shared Services Manager for Apryl Fwd 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
[2021-10-30] MEDS: ketorolac 30 mg/mL INJ IM (21:42)
[2021-10-30] MEDS: methylPREDNISolone (DEPO) 40 mg/mL INJ 1 mL IM (21:43)
[2021-10-30 21:50] VITALS: BP 107/88; PULSE 98; RESP 18; O2SAT 98
[2021-10-30 22:06] VITALS: BP 107/88; PULSE 83; RESP 16; O2SAT 98
== END 2021-10-30 22:06 | disposition home or self-care (01) ==
PROVIDERS: Emergency Provider Nurse Practitioner Family; PCP Family Medicine Adult Medicine
DX: M25.511 Pain in right shoulder (principal); F17.210 Nicotine dependence, cigarettes, uncomplicated
CPT/HCPCS: 73030; 96372; 99283; J1030; J1885

== ENCOUNTER 2021-11-26 18:53 | Emergency (ER) | payer BC, MEDICAID, SELFPAY ==
[2021-11-26] VITALS (9 sets, daily range): BP systolic 109–134; BP diastolic 74–94; PULSE 70–89; RESP 16–18; TEMP 36.7; O2SAT 93–99; BMI 21.1
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
--- NOTE | 2021-11-26 19:13 | PC.NURSE ---
190 assumed pt care from Lan SHIELDS
[2021-11-26] MEDS: morphine 4 mg/mL SDV 1 mL IVP ×2 (19:16→20:45)
[2021-11-26] MEDS: ketorolac 30 mg/mL INJ IVP (19:18)
--- NOTE | 2021-11-26 19:27 | PC.NURSE ---
2 rings on left hand removed and placed in pt wallet zipper pocket. ice applied to left wrist area, elevated on pillow.
--- NOTE | 2021-11-26 19:45 | XRR_ITS ---
PROCEDURE INFORMATION: Exam: XR Left Forearm Exam date and time: 11/26/2021 8:53 PM Age: 46 years old Clinical indication: Injury or trauma; Fall; Fracture, traumatic injury; Displaced; Radius; Left; Distal end; Patient HX: Post reduction R wrist FX; Additional info: Please do a post reduction XR TECHNIQUE: Imaging protocol: XR Left forearm. Views: 2 views. COMPARISON: CR XR forearm LT 2V [id number] 11/26/2021 7:12 PM FINDINGS: Bones/joints: Redemonstration of intra-articular distal radius fracture. No change in alignment. Soft tissues: Soft tissue swelling distally. Other findings: Interval placement of cast. XR/XR forearm LT 2V 28349 IMPRESSION: Comminuted intra-articular distal radius fracture. No significant change in alignment from prior.
[2021-11-26] MEDS: sodium bicarbonate 8.4% 1 mEq/mL 50mL Syr 25 MEQ IVP (20:53)
--- NOTE | 2021-11-29 16:00 | DCPLANNER ---
Addendum entered by Isabell Lamar 12/02/21 16:16: Patient had a follow up appointment scheduled with ortho - patient did attend appointment. Original Note: manager transportation planning had message to schedule a follow up appointment for patient with ortho. manager transportation planning sent patients information to the front office staff at ortho. Patients information will be printed and reviewed. Clinic will call patient with appointment information.
== END 2021-11-26 22:00 | disposition home or self-care (01) ==
PROVIDERS: Emergency Provider Emergency Medicine; PCP Family Medicine Adult Medicine
DX: S52.572A Other intraarticular fracture of lower end of left radius, initial encounter for closed fracture (principal); W01.0XXA Fall on same level from slipping, tripping and stumbling without subsequent striking against object, initial encounter; Z86.711 Personal history of pulmonary embolism; Z79.01 Long term (current) use of anticoagulants; F17.210 Nicotine dependence, cigarettes, uncomplicated
CPT/HCPCS: 25605; 64450; 73070; 73090; 73110; 96374; 96375; 96376; 99284; E0114; J1885; J2270

== ENCOUNTER 2021-11-28 17:16 | Emergency (ER) | payer BC, MEDICAID, SELFPAY ==
[2021-11-28 17:18] VITALS: BP 154/98; PULSE 92; RESP 16; TEMP 37; O2SAT 98; BMI 20.9
--- NOTE | 2021-11-28 17:27 | W.ED.EXTPRO ---
HPI - Extremity Problem General: Chief complaint: Extremity Injury, Upper Stated complaint: HX LEFT WRIST FX WITH INCREASED PAIN Time Seen by Provider: 11/28/21 17:18 History of Present Illness: Patient is a 46 female comes to the ED via EMS with left wrist pain. Patient was seen here on November 26 after having a fall and was diagnosed with a distal radial fracture of left wrist and was put in a splint at that time. Patient has not gotten her prescription pain med filled since she was discharged from the ED. She is here because she is having pain in left wrist. She brought the written prescription paper of morphine 15 mg tablets here to the ED to show that she has not gotten it filled. She says that they do not have a working car at this time and she has not been able to get to a pharmacy to get prescription filled since she was discharged. . she took some previously prescribed Toradol at home today and it did not help with her pain. Denies any reinjury to the left wrist or fall. EMS gave patient a dose of 50 mcg of fentanyl to help with her pain while in route to ED. Associated symptoms: Deny chest pain, fever(s) or rash Review of Systems Const: Denies: fever(s), chills or fatigue Eyes: Denies: change in vision or eye discomfort ENMT: Denies: throat pain, odynophagia, nasal discharge or nasal congestion Card: Denies: chest pain, palpitations, edema, swelling of feet/ankles, dyspnea on exertion or orthopnea Resp: Denies: dyspnea, productive cough or non-productive cough GI: Denies: abdominal pain, nausea, vomiting, diarrhea, constipation or hematochezia : Denies: flank pain, dysuria or hematuria Musc: Reports: extremity pain (Left wrist pain); Denies: neck pain, back pain or extremity swelling Skin/Breast: Denies: rash or new lesions Neuro: Denies: headache(s), numbness in extremities or weakness in extremities PFS ED PFSH: Medical History Allergic rhinitis Back pain Bilateral lower extremity edema Chronic coughing Community acquired pneumonia Compression fracture of thoracic vertebra COVID-19 Positive test on 08/22/2021. Fibromyalgia Folic acid deficiency GERD (gastroesophageal reflux disease) History of hypothyroidism HTN (hypertension) stable Hx of deep venous thrombosis resume eliquis Hx of pulmonary embolus Migraine without aura, not intractable, without status migrainosus Nicotine abuse PSVT (paroxysmal supraventricular tachycardia) Pyelonephritis of right kidney Renal infarct Spinal stenosis, cervical region TMJ arthralgia Transaminitis Transaminitis Vitamin B12 deficiency anemia Vitamin D deficiency Wrist clicking Surgical History H/O colonoscopy 2018 - normal History of hysterectomy with bilateral oophorectomy History of radiofrequency ablation (RFA) procedure for cardiac arrhythmia Hx of appendectomy S/P carpal tunnel release S/P tubal ligation Family History Mother Atrial fibrillation Hypertension Social History Smoking and tobacco status: current every day smoker cigarettes Packs smoked per day: 0.5 Years cigarettes smoked: 30 Alcohol intake: current Alcohol intake frequency: 0-2 Drinks per Day Lives independently: Yes Household members: spouse and family Marital status: service: No Current occupational status: unemployed History of recent travel: No Current gender identity: Female Female Reproductive History: Date of last menstrual period: 07/31/10 Physical Exam Const: COMMON NORMALS: no acute distress, patient oriented x3 and alert GENERAL APPEARANCE: cooperative HENMT: COMMON NORMALS: normocephalic HEAD & SCALP: normocephalic MOUTH: Normal oral and palatal mucosa present THROAT: posterior oropharynx normal and uvula midline Neck/C-Spine: COMMON NORMALS: supple GENERAL: Yes normal visual inspection Resp: COMMON NORMALS: normal respiratory effort, No retractions, No use of accessory muscles and clear to auscultation bilaterally AUSCULTATION: clear to auscultation bilaterally Cardio: COMMON NORMALS: regular rate, regular rhythm, S1 normal heart sound present, S2 normal heart sound present, No gallops present (Cardio), No clicks present (Cardio), No murmurs present (Cardio) and Peripheral pulses 2+ throughout RATE: regular rate RHYTHM: regular rhythm HEART SOUNDS: S1 normal heart sound present and S2 normal heart sound present PERIPHERAL PULSES: Peripheral pulses 2+ throughout GI: COMMON NORMALS: Normal to inspection, nondistended, normoactive bowel sounds present, Soft to palpation, non-tender and no masses PALPATION: Yes Soft to palpation : COMMON NORMALS: Yes no CVA tenderness BLADDER/KIDNEY EXAM: Yes no CVA tenderness Back/Pelvis: COMMON NORMALS: no CVA tenderness Extremity: NARRATIVE EXTREMITY EXAM: Left arm?patient has a sugar-tong splint of left wrist in place. Neurovascular intact. Neuro: COMMON NORMALS: patient oriented x3 and moves all extremities SENSORIUM/ORIENTATION: Yes alert Skin: GENERAL SKIN EXAM: dry skin Course Vital Signs: Vital signs: Vital Signs Temperature 98.6 F 11/28/21 17:18 Pulse Rate 95 11/28/21 18:03 Respiratory Rate 16 11/28/21 18:03 Blood Pressure 154/98 11/28/21 18:03 Pulse Oximetry 97 11/28/21 18:03 MDM - Extremity (Nontraumatic) Medical Decision Making Patient is a 46-year-old female comes to the ED via EMS with pain in the left wrist. Patient was seen here in the ED on November 26 after fall and diagnosed with a distal radial fracture. She was discharged home with a prescription for morphine p.o. Patient denies any reinjury or trauma. She says she has not been able to get her morphine prescription filled because she does not have a vehicle. She brought the prescription into the ED as proved to show that she has not had it filled yet. Patient's left wrist is still in sugar-tong splint and the rest of exam is benign. Vitals are stable. Patient was given a dose of morphine here in the ED and then discharged home with 1 morphine tab for her to use tonight for pain, since pharmacies will be closed by the time she discharges from ED. I told patient to make sure she gets her pain med prescription filled tomorrow to help manage wrist fracture pain. Patient was told that case management should be calling them in the next several days to set up an appointment with Ortho for follow-up. Return to ED precautions given. Patient understood and agreed with plan. Discharge Plan Discharge Patient Disposition: Home Clinical Impression: Distal radial fracture Qualifiers: Encounter type: subsequent encounter Fracture type: closed Fracture morphology: unspecified fracture morphology Laterality: left Fracture healing: with routine healing Qualified Code(s): S52.502D - Unspecified fracture of the lower end of left radius, subsequent encounter for closed fracture with routine healing Condition: Stable Prescriptions: No Action fexofenadine 180 mg tablet 180 mg PO Q24H 0RF Label Comments: pt gets this from the dollar store. Insurance will not cover. benzonatate 100 mg capsule 100 mg PO BID PRN (Reason: Chronic cough) 30 Days Qty: 30 1RF albuterol sulfate 90 mcg/actuation HFA aerosol inhaler 1 inh inhalation QID PRN (Reason: shortness of breath or wheezing) Qty: 8.5 0RF Eliquis 5 mg tablet 5 mg PO BID 30 Days Qty: 60 5RF aspirin 81 mg tablet,delayed release (DR/EC) 81 mg PO DAILY Qty: 90 3RF ondansetron HCl [Zofran] 4 mg tablet 4 mg PO Q8H PRN (Reason: nausea and vomiting) Qty: 20 0RF Cold & Head Congestion Severe 2 tab PO TID PRN (Reason: Congestion) 0RF ketorolac 10 mg tablet 10 mg PO TID PRN (Reason: pain) Qty: 10 0RF ketorolac 10 mg tablet 10 mg PO TID PRN (Reason: pain) Qty: 10 0RF Discharge Orders: Discharge ED (Routine); Ordered 11/28/21 Ordered By: Yoshi Pope Referrals: Shaq Wallace MD [Primary Care Provider] - Discharge Diet: Regular Discharge Activity: Limit activity as instructed Patient Instructions: Opioid Safety Activity Restrictions/Additional Instructions: Follow-up with medical provider as directed. I am sending you home with 1 tab of morphine. Take p.o. after 11 PM tonight as needed for pain. Make sure to get your pain med prescription filled tomorrow morning. case management should be contacted in the next several days to set up an appointment with Ortho for follow-up.take medications as prescribed. Return to the ER or your medical provider if condition worsens. Please read and understand discharge instructions. Thank you for choosing [facility] for your healthcare needs today. Please realize this is an emergency room and that we are providing you with a medical screening exam and this may not be complete and all inclusive of all the testing and or work up that you may need to determine your ailment or severity of your illness. It is very important that you follow up as instructed or that you return to the Emergency Department should you have concerns or if your condition changes or worsens in any way. Coding Level of Care Code ED Home Extension Agent for Apryl Salas 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
[2021-11-28 17:51] VITALS: RESP 20
[2021-11-28] MEDS: morphine 4 mg/mL SDV 1 mL IVP (17:51)
[2021-11-28] MEDS: morphine IR 15 mg Tablet PO (17:57)
[2021-11-28 18:03] VITALS: BP 154/98; PULSE 95; RESP 16; O2SAT 97
== END 2021-11-28 18:00 | disposition home or self-care (01) ==
PROVIDERS: Emergency Provider Physician Assistant; PCP Family Medicine Adult Medicine
DX: S52.502A Unspecified fracture of the lower end of left radius, initial encounter for closed fracture (principal); W19.XXXA Unspecified fall, initial encounter; F17.210 Nicotine dependence, cigarettes, uncomplicated
CPT/HCPCS: 96374; 99283; J2270

== ENCOUNTER → 2021-12-01 10:24 | Outpatient (BNVA) | payer BC, MEDICAID, SELFPAY | PROVIDERS: PCP Family Medicine Adult Medicine; Referring Provider Emergency Medicine; Visit Provider Nurse Practitioner Family | DX: S52.509A Unspecified fracture of the lower end of unspecified radius, initial encounter for closed fracture (principal); W01.0XXA Fall on same level from slipping, tripping and stumbling without subsequent striking against object, initial encounter; F17.210 Nicotine dependence, cigarettes, uncomplicated | CPT/HCPCS: 73110; 99204 ==

== ENCOUNTER 2021-12-09 07:08 | Day surgery (SDC) | payer BC, MEDICAID, SELFPAY ==
[2021-12-01 13:18] VITALS: BMI 20.9
[2021-12-09] VITALS (15 sets, daily range): BP systolic 135–157; BP diastolic 83–113; PULSE 78–115; RESP 12–33; TEMP 36.5–36.7; O2SAT 94–100
--- NOTE | 2021-12-09 | SCC_ITS ---
Procedure done: Open reduction internal fixation left distal radius 3 part 34.9 seconds of fluoroscopic guidance, for a cumulative dose of 0.77 mGy, was provided to Dr. Whitfield by the radiology department. C-arm images of the LEFT wrist were saved for the patient's permanent record. [facility]Kin
--- NOTE | 2021-12-09 | XR_ITS ---
WS: [id number] XR wrist LT 2V [id number] REASON FOR EXAM: orif fracture FINDINGS: Plate and screw fixation of transverse distal metadiaphyseal radial fracture. Surgical appliances and fracture fragments are in good position and alignment. XR/XR wrist LT 2V [id number] IMPRESSION: Internal fixation of left distal radius fracture without abnormality.
--- NOTE | 2021-12-09 06:37 | P.ANESASSM_ITS ---
Pre-Anesthetic Assessment Height/Weight: Height 1.73 m Weight 62.596 kg Preop Diagnosis: Laceration right foot Operation Date: 12/09/21 07:00 Proposed Procedures p ORIF Distal Radius 43088/S52.501A(Left) - Benito Whitfield MD Familial anesthetic complications: None Was Beta Chandler taken within 24 hours: N/A Was Clonidine taken within 24 hours: N/A Social Alcohol and Tobacco Exam alert, oriented x 3, clear to auscultation bilaterally and regular rate & rhythm Airway Cervical ROM: within normal limits Mallampati: Class II Comments: Comments: Missing teeth Hx of TMJ Pulmonary Hx of DVT on apixaban after PE CV/HEM Arrythmia (PSVT), Deep Vein Thrombosis and Hypertension 08/10/21 ?Interpretive Statements SINUS RHYTHM POSSIBLE RIGHT VENTRICULAR CONDUCTION DELAY? [RSR (QR) IN V1/V2] Compared to ECG 05/09/2021 15:29:17 Myocardial infarct finding no longer present Electronically Signed On 08-11-2021 19:54:06 KITCHEN CLERK by Jeanne Zaidi M.D. [email or web address] TTE ?CONCLUSIONS ?Normal left ventricular size and systolic function, EF 67 %. No ?regional wall motion abnormalities. Grade I/IV diastolic ?dysfunction (abnormal relaxation filling pattern), normal to ?mildly elevated filling pressures. ?Trace pulmonary valve regurgitation. ?Trace mitral valve regurgitation. ?No evidence of right ventricular strain. ?The PA pressure could not be calculated properly because of the ?poor Doppler signal-possibly within normal limits ?There is no pericardial effusion. ?There are no intracardiac masses. ?Compared to the study from 03/23/2020, there may not be a ?significant change. Hx of pyelonephritis, renal infarct Hepatic Hx of transaminitis GI Gastroesophageal Reflux Disease (Well controlled ) Metabolic Thyroid Disease (Hypothyroid ) Musc/skel Fibromyalgia b/l LE edema TMJ Spinal stenosis Acute fx Neuropsych Headache and Neuropathy Anesthetic Plan ASA status: 3 (46 year old daily smoker with hx of PE on anticoagulation, renal infarct, pyelonephritis, PSVT ) Anesthesia: Anesthesia Evaluation and General Other: We discussed risk and benefits of general anesthesia including PONV, sore throat (sometimes severe), corneal abrasion, positioning and peripheral nerve injuries, life threatening allergic reaction, post operative ICU admission requiring prolonged intubation, stroke, heart attack, , and rare incidences of recall. Patient consents to proceed with general anesthesia. Risk of > 500 ml blood loss (7ml/kg in children): No Medications/Allergies Home Medications Medication Instructions Recorded Confirmed Last Taken Type apixaban 5 mg tablet (Eliquis) 5 mg PO BID 30 Days #60 tab 08/26/21 12/01/21 11/30/21 Rx benzonatate 100 mg capsule 100 mg PO BID PRN 30 Days #30 cap 09/28/21 12/01/21 Unknown Rx ondansetron HCl 4 mg tablet 4 mg PO Q8H PRN #20 tab 10/19/21 12/09/21 12/07/21 Rx (Zofran) cetirizine 10 mg capsule 10 mg PO DAILY 12/01/21 12/09/21 12/08/21 History cimetidine 200 mg tablet 200 mg PO PRN PRN 12/09/21 12/09/21 Unknown History morphine 15 mg immediate release 15 mg PO Q8H PRN 7 Days #20 tab 12/09/21 Unknown Rx tablet Allergies Allergy/AdvReac Type Severity Reaction Status Date / Time diphenhydramine Allergy Intermediate ALGY-Rash Verified 12/01/21 10:47 [From Benadryl] Sulfa (Sulfonamide Allergy Intermediate ALGY-Rash Verified 12/01/21 10:47 Antibiotics) levofloxacin Allergy Mild Stomach Verified 12/01/21 10:47 upset methocarbamol [From Robaxin] Allergy Mild ADR-Itching Verified 12/01/21 10:47 acetaminophen [From Percocet] Allergy ALGY-Swell Verified 12/01/21 10:47 Lip/Tongue/Throat amoxicillin [From Augmentin] Allergy swelling Verified 12/01/21 10:47 azithromycin [From Zithromax] Allergy ADR-Itching Verified 12/01/21 10:47 clavulanic acid Allergy swelling Verified 12/01/21 10:47 [From Augmentin] clindamycin [From Cleocin] Allergy ALGY-Rash Verified 12/01/21 10:47 codeine Allergy ADR-Itching Verified 12/01/21 10:47 cyclobenzaprine Allergy ADR-Swelling Verified 12/01/21 10:47 [From Flexeril] of the Eye Egg Derived Allergy ADR-Vomitin Verified 12/01/21 10:47 g hydrocodone Allergy ALGY-Swell Verified 12/01/21 10:47 Lip/Tongue/Throat hydroxyzine Allergy ALGY-Hives Verified 12/01/21 10:47 lactase [From Dairy Aid] Allergy ADR-Diarrhe Verified 12/01/21 10:47 a loratadine [From Claritin] Allergy Unknown Verified 12/01/21 10:47 oxycodone [From Percocet] Allergy ALGY-Swell Verified 12/01/21 10:47 Lip/Tongue/Throat tizanidine Allergy ADR-Itching Verified 12/01/21 10:47 tramadol Allergy ALGY-Rash Verified 12/01/21 10:47 [facility] Anesthesia Medical History Allergic rhinitis Back pain Bilateral lower extremity edema Chronic coughing Community acquired pneumonia Compression fracture of thoracic vertebra COVID-19 Positive test on 08/22/2021. Fibromyalgia Folic acid deficiency GERD (gastroesophageal reflux disease) History of hypothyroidism HTN (hypertension) stable Hx of deep venous thrombosis resume eliquis Hx of pulmonary embolus Migraine without aura, not intractable, without status migrainosus Nicotine abuse PSVT (paroxysmal supraventricular tachycardia) Pyelonephritis of right kidney Renal infarct Spinal stenosis, cervical region TMJ arthralgia Transaminitis Transaminitis Vitamin B12 deficiency anemia Vitamin D deficiency Wrist clicking Surgical History H/O colonoscopy 2018 - normal History of hysterectomy with bilateral oophorectomy History of radiofrequency ablation (RFA) procedure for cardiac arrhythmia Hx of appendectomy S/P carpal tunnel release S/P tubal ligation Family History Mother Atrial fibrillation Hypertension Social History Smoking and tobacco status: current every day smoker cigarettes Packs smoked per day: 0.5 Years cigarettes smoked: 30 Alcohol intake: current Alcohol intake frequency: 0-2 Drinks per Day Lives independently: Yes Household members: spouse and family Marital status: service: No Current occupational status: unemployed History of recent travel: No Current gender identity: Female Female Reproductive History Date of last menstrual period: 07/31/10 Data Anesthesia Cardiac Studies: Echocardiogram 03/08/21 Echocardiogram Ultrasound 03/23/20
--- NOTE | 2021-12-09 07:20 | W.PM.OPSUD ---
Surgery/Procedure H&P Update DATE OF PROCEDURE: December 09, 2021 DATE H&P PERFORMED: 12/01/21 H&P UPDATE INFORMATION: I have reviewed H&P completed within last 30 days PREOP DIAGNOSIS: Fracture Left distal radius PLANNED PROCEDURE: Operation Date: 12/09/21 07:00 Proposed Procedures p ORIF Distal Radius 86311/S52.501A(Left) - Benito Whitfield MD
[2021-12-09] MEDS: sodium chloride 0.9% 1,000 ML 30 ML IV (07:31)
--- NOTE | 2021-12-09 08:40 | P.OP_ITS ---
Operative Report Date of procedure: December 09, 2021 Pre-op diagnosis: Preop Diagnosis intra-articular frracture Left distal radius Post-op diagnosis: same Procedure done: Open reduction internal fixation left distal radius 3 part Implants: Gail Variax short narrow left distal radius plate Surgeon: Benito Whitfield Anesthesia: General Estimated blood loss (mL): 10 Tourniquet time (min): 19 Findings: The patient had the previously described intra-articular fracture of the distal radius consisting of a volar Astudillo fragment with dorsal articular fragment Condition: stable Disposition: PACU Procedure: Initial attempts were made at closed reduction however a satisfactory stable red uction could not be obtained. A decision was made to proceed with open reduction internal fixation.A 5 cm long incision was made along over the flexor carpi radialis tendon. Dissection was carried down through the tendon sheath. Dissection was carried down bluntly to the pronator quadratus. The pronator quadratus was elevated off of the distal radius leaving a cuff for later repair. Closed reduction was accomplished of the distal radius. Close reduction was accomplished by applying longitudinal traction and a dorsal force across the volar fragment. This allowed for reduction of both articular fragments. A Gail Variax short narrow plate was applied. It was fixed distally with 3 locking screws and proximally with 3 bicortical screws. Intraoperative imaging showed excellent position of the hardware. The wound was irrigated with saline. The pronator quadratus was reapproximated with 2-0 Vicryl. Subcutaneous tissues were closed with 2-0 Vicryl. The skin was closed with skin catracho. Sterile dressings were applied. The patient was taken to outpatient surgery in stable condition.
[2021-12-09] MEDS: fentaNYL 50 mcg/mL INJ 2mL IVP ×2 (08:48→08:59)
[2021-12-09] MEDS: morphine IR 15 mg Tablet PO (09:44)
--- NOTE | 2021-12-09 10:09 | SUR.PHASEI ---
0835 PT TO PACU 5 PT AWAKES TO VOICE, IV PATENT, PT ID'D WITH 2 IDENTIFIERS, WARM BLANKETS TO PT LT ARM WITH SOFT DERESSING AND SLING IN PLACE, DISTAL FINGERS PINK WARM PT MOVES FINGERS TO COMMAND, PT REMAINS SLEEPY ,REPOSITIONS SELF TO POSITION OF COM FORT
--- NOTE | 2021-12-09 11:34 | SUR.PHASEI ---
0859 PT NOW C/O OF PAIN OF 7-03/09 SEE PAIN MEDS GIVEN , PT ALERT AND TALKATIVE, DISTAL FINGERS PINK WARM SLING IN PLACE.
--- NOTE | 2021-12-09 14:27 | ANE.PACU2 ---
Inpatient post-anesthesia follow up: Airway intact: Yes Vital signs: Temperature 97.7 F Pulse Rate 85 Respiratory Rate 18 Blood Pressure 140/94 Pulse Oximetry 98 Oxygen Delivery Me thod Room Air Oxygen Flow Rate 8 Fraction of Inspir ed Oxygen Hydration adequate: Yes Nausea and vomiting: No Pain level: 5 Mental status: Baseline
== END 2021-12-09 10:19 | disposition home or self-care (01) ==
PROVIDERS: PCP Family Medicine Adult Medicine; Visit Provider Orthopaedic Surgery
PROC: (CPT 25609; principal; 2021-12-09 07:00)
DX: S52.572A Other intraarticular fracture of lower end of left radius, initial encounter for closed fracture (principal); W01.0XXA Fall on same level from slipping, tripping and stumbling without subsequent striking against object, initial encounter; Z86.718 Personal history of other venous thrombosis and embolism; Z86.711 Personal history of pulmonary embolism; K21.9 Gastro-esophageal reflux disease without esophagitis; E03.9 Hypothyroidism, unspecified; M79.7 Fibromyalgia; Z79.01 Long term (current) use of anticoagulants; Z86.16 Personal history of COVID-19; Z79.82 Long term (current) use of aspirin; F17.210 Nicotine dependence, cigarettes, uncomplicated
CPT/HCPCS: 25609; 73100; 76000; C1713; J0690; J1100; J1885; J2405; J3010; J7030

== ENCOUNTER → 2022-01-18 15:54 | Outpatient (BNVA) | payer BC, MEDICAID, SELFPAY | PROVIDERS: PCP Family Medicine Adult Medicine; Visit Provider Orthopaedic Surgery | DX: Z98.890 Other specified postprocedural states (principal) | CPT/HCPCS: 73110; 99024 ==

== ENCOUNTER → 2022-05-11 11:36 | Outpatient (BNVA) | payer BC, MEDICAID, SELFPAY | PROVIDERS: PCP Family Medicine Adult Medicine; Visit Provider Orthopaedic Surgery | DX: Z98.890 Other specified postprocedural states (principal); M25.512 Pain in left shoulder | CPT/HCPCS: 73030; 73110 ==

== ENCOUNTER → 2022-08-03 15:24 | Outpatient (BNVA) | payer BC, MEDICAID, SELFPAY | PROVIDERS: PCP Family Medicine Adult Medicine; Visit Provider Orthopaedic Surgery | DX: M25.532 Pain in left wrist (principal) | CPT/HCPCS: 73110 ==

== ENCOUNTER 2022-08-03 15:56 | Outpatient (CLI) | payer BC, MEDICAID, SELFPAY | END 2022-08-03 15:57 | disposition home or self-care (01) | LOC: SPT 15:57 | PROVIDERS: PCP Family Medicine Adult Medicine; Visit Provider Orthopaedic Surgery | DX: Z47.89 Encounter for other orthopedic aftercare (principal) | CPT/HCPCS: 97760; L3908 ==

== ENCOUNTER 2024-05-02 07:06 | Outpatient (CLI) | payer BC, MEDICAID, SELFPAY ==
--- NOTE | 2024-05-02 07:15 | USCV_ITS ---
Denisa Orourke Age: 48 Gender: F : 1975 Exam Date: 05/02/2024 07:20 Ordering Phys: Jessy Carpenter NP Technologist: GEOFFREY Exam Location: [facility] [place]_ Indication: pain HISTORY: Lower extremity pain. Patient has history of. DVT. PROCEDURES: Venous duplex imaging was performed in only the left lower extremity. The following venous structures were evaluated: common femoral vein, profunda vein, proximal portion of the greater saphenous vein, superficial femoral vein, and the popliteal vein. In addition, the posterior tibial and peroneal trunk were evaluated. Serial compression, augmentation maneuvers, and spectral Doppler flow evaluation were performed. FINDINGS: Normal 2-D Doppler and augmentation and compressibility throughout the lower extremity venous structures. Additional imaging through the proximal calf veins also reveals no thrombus. Limited evaluation of the greater saphenous vein is patent with no thrombus. CONCLUSIONS No DVT left lower extremity. Dr. Kristin Molina DO (Electronically Signed) Final Date: 03 May 2024 08:05 S
== END 2024-05-02 07:07 | disposition home or self-care (01) ==
PROVIDERS: PCP Nurse Practitioner Family; Visit Provider Nurse Practitioner Family
DX: M79.604 Pain in right leg (principal)
CPT/HCPCS: 93971